=== PATIENT | female | born 1945 | race Caucasian/White ===

== ENCOUNTER → 2016-03-19 | Outpatient (CLI) | payer OTHER ==
[~2016-03-19] MED LIST: ALBUAER19 INH; AMLO-110 PO; ASPI81TA28 PO; BISO10TA4 PO; BRIM0.15 OPB; CHOL1TAB42 PO; DOCU100C31 PO; FLUT115A INH; HYDR-4717 PO; ISOS60TA25 PO; LPT/40 PO; NTRGSL/4 UT; OMEP40CA PO; ONDA8TAB7 PO; VITAMIN C PO
[2016-03-19 12:11] LABS: HEMATOCRIT 33.7 % (37-47)
== END | disposition home or self-care (01) ==
LOC: C.LAB1850 11:22
PROVIDERS: ATTEND Internal Medicine Nephrology
DX: N18.4 Chronic kidney disease, stage 4 (severe) (principal); D64.9 Anemia, unspecified

== ENCOUNTER → 2016-06-16 | Outpatient (CLI) | payer OTHER ==
[2016-06-16 12:35] LABS: HEMATOCRIT 36.2 % (37-47); MEAN CORPUSCULAR HEMOGLOBIN 25.8 pg (25-34); MEAN CORPUSCULAR HGB CONC 30.7 g/dl (32-36); MEAN PLATELET VOLUME 10.3 fL (7.4-10.4); PLATELET COUNT 221 K/uL (130-400); RED BLOOD COUNT 4.31 M/uL (4.2-5.4); WHITE BLOOD COUNT 6.68 K/uL (4.8-10.8)
[2016-06-16 12:48] LABS: URINE APPEARANCE CLEAR (CLEAR); URINE BILIRUBIN NEG (NEG); URINE COLOR YELLOW; URINE EPITHELIAL CELL AUTO >30 /lpf (0-5); URINE NITRITE NEG (NEG); URINE SPECIFIC GRAVITY 1.018 (1.000-1.030); UROBILINOGEN NEG (NEG)
[2016-06-16 12:56] LABS: MANUAL MICROSCOPIC REQUIRED? NO; REVIEW REQ? NO
[2016-06-16 13:07] LABS: URINE PROTIEN/CREAT RATIO 4.1 (0-0.2); URINE TOTAL PROTEIN 408.9 mg/dl (0-11.9)
[2016-06-16 13:12] LABS: ALT/SGPT 17 U/L (12-78); BLOOD UREA NITROGEN 62 mg/dl (7-18); BUN/CREATININE RATIO 16.4 (10-20); CARBON DIOXIDE 27 mmol/L (21-32); CHLORIDE 108 mmol/L (98-107); GLUCOSE 104 mg/dl (70-99); POTASSIUM 4.5 mmol/L (3.5-5.1); SODIUM 142 mmol/L (136-145)
[2016-06-16 13:18] LABS: ALB/GLOB RATIO 0.9 (0.9-2); ALKALINE PHOSPHATASE 72 U/L (45-117); AST/SGOT 12 U/L (15-37); FERRITIN 910.6 ng/ml (8.0-388.0); PHOSPHORUS 4.4 mg/dl (2.5-4.9); TOTAL IRON BINDING CAPACITY 207 mcg/dl (250-450)
[2016-06-16 13:32] LABS: CALCIUM 9.4 mg/dl (8.5-10.1)
== END | disposition home or self-care (01) ==
LOC: C.LAB1850 10:40
PROVIDERS: ATTEND Internal Medicine Nephrology
DX: I10 Essential (primary) hypertension (principal); R80.9 Proteinuria, unspecified; E55.9 Vitamin D deficiency, unspecified; D64.9 Anemia, unspecified; N18.5 Chronic kidney disease, stage 5

== ENCOUNTER → 2016-06-18 | Outpatient (CLI) | payer OTHER ==
--- NOTE | 2016-06-18 12:17 | DIAGNOSTIC IMAGING REPORT ---
TWO VIEW CHEST CLINICAL HISTORY: Pulmonary edema. FINDINGS: PA and lateral chest radiographs are compared to study dated 01/11/2015. The heart is enlarged and there is atherosclerotic calcification of the thoracic aorta. The pulmonary vasculature is noncongested. There is chronic elevation of right hemidiaphragm with mild right basilar atelectasis. The lung and pleural spaces are otherwise clear. There is no pneumothorax. The skeletal structures are osteopenic. Degenerative change and scoliosis are noted in the thoracic spine. IMPRESSION: Cardiomegaly with no acute cardiopulmonary abnormality. Electronically signed by: Kwan Gonzalez M.D. 06/18/2016 12:16 PM Dictated Date/Time: 06/18/2016 12:15 PM
== END | disposition home or self-care (01) ==
LOC: C.RADBBURG 12:00
PROVIDERS: ATTEND Physician Assistant
DX: J81.1 Chronic pulmonary edema (principal); I51.7 Cardiomegaly

== ENCOUNTER → 2016-07-13 | Outpatient (CLI) | payer OTHER ==
--- NOTE | 2016-07-16 06:55 | PULMONARY FUNCTION TEST ---
Interpretation is based off ATS criteria. SPIROMETRY: Severe obstructive ventilatory disease with significant reversibility noted. DICTATION ENDS HERE.
== END | disposition home or self-care (01) ==
LOC: C.RC 10:54
PROVIDERS: ATTEND Physician Assistant
DX: J45.909 Unspecified asthma, uncomplicated (principal); J81.1 Chronic pulmonary edema

== ENCOUNTER → 2016-08-18 | Outpatient (CLI) | payer OTHER ==
[2016-08-18 13:16] LABS: HEMATOCRIT 33.1 % (37-47); MEAN CELL VOLUME 81.9 fL (80-100); MEAN CORPUSCULAR HGB CONC 30.5 g/dl (32-36); MEAN PLATELET VOLUME 10.1 fL (7.4-10.4); PLATELET COUNT 191 K/uL (130-400); RED BLOOD COUNT 4.04 M/uL (4.2-5.4); WHITE BLOOD COUNT 5.89 K/uL (4.8-10.8)
[2016-08-18 15:22] LABS: CALCIUM 9.2 mg/dl (8.5-10.1)
[2016-08-18 15:33] LABS: BLOOD UREA NITROGEN 76 mg/dl (7-18); CARBON DIOXIDE 25 mmol/L (21-32); CHLORIDE 107 mmol/L (98-107); FERRITIN 626.2 ng/ml (8.0-388.0); GLUCOSE 95 mg/dl (70-99); PHOSPHORUS 4.7 mg/dl (2.5-4.9); POTASSIUM 5.3 mmol/L (3.5-5.1); SODIUM 140 mmol/L (136-145); TOTAL IRON BINDING CAPACITY 178 mcg/dl (250-450)
== END | disposition home or self-care (01) ==
LOC: C.LAB1850 11:30
PROVIDERS: ATTEND Internal Medicine Nephrology
DX: R80.9 Proteinuria, unspecified (principal); E55.9 Vitamin D deficiency, unspecified; D64.9 Anemia, unspecified; N18.5 Chronic kidney disease, stage 5; I12.0 Hypertensive chronic kidney disease with stage 5 chronic kidney disease or end stage renal disease

== ENCOUNTER → 2016-08-31 | Outpatient (CLI) | payer OTHER ==
[2016-08-31 14:10] LABS: BLOOD UREA NITROGEN 67 mg/dl (7-18); BUN/CREATININE RATIO 15.6 (10-20); CALCIUM 9.4 mg/dl (8.5-10.1); CARBON DIOXIDE 25 mmol/L (21-32); CHLORIDE 108 mmol/L (98-107); GLUCOSE 114 mg/dl (70-99); POTASSIUM 4.3 mmol/L (3.5-5.1); SODIUM 143 mmol/L (136-145)
[2016-08-31 14:11] LABS: PHOSPHORUS 5.4 mg/dl (2.5-4.9)
[2016-08-31 14:54] LABS: HEMATOCRIT 35.7 % (37-47); MEAN CELL VOLUME 82.8 fL (80-100); MEAN CORPUSCULAR HEMOGLOBIN 23.9 pg (25-34); MEAN CORPUSCULAR HGB CONC 28.9 g/dl (32-36); MEAN PLATELET VOLUME 9.3 fL (7.4-10.4); PLATELET COUNT 213 K/uL (130-400); RED BLOOD COUNT 4.31 M/uL (4.2-5.4); WHITE BLOOD COUNT 7.43 K/uL (4.8-10.8)
== END | disposition home or self-care (01) ==
LOC: C.LAB1850 11:22
PROVIDERS: ATTEND Internal Medicine Nephrology
DX: I12.9 Hypertensive chronic kidney disease with stage 1 through stage 4 chronic kidney disease, or unspecified chronic kidney disease (principal); R80.9 Proteinuria, unspecified; E55.9 Vitamin D deficiency, unspecified; D64.9 Anemia, unspecified; N18.5 Chronic kidney disease, stage 5

== ENCOUNTER → 2016-10-14 | Outpatient (CLI) | payer OTHER ==
[2016-10-14 12:16] LABS: HEMATOCRIT 31.1 % (37-47); MEAN CELL VOLUME 79.7 fL (80-100); MEAN CORPUSCULAR HEMOGLOBIN 24.6 pg (25-34); MEAN CORPUSCULAR HGB CONC 30.9 g/dl (32-36); MEAN PLATELET VOLUME 10.4 fL (7.4-10.4); PLATELET COUNT 191 K/uL (130-400); WHITE BLOOD COUNT 7.82 K/uL (4.8-10.8)
[2016-10-14 12:42] LABS: BLOOD UREA NITROGEN 72 mg/dl (7-18); CALCIUM 9.5 mg/dl (8.5-10.1); CARBON DIOXIDE 27 mmol/L (21-32); CHLORIDE 107 mmol/L (98-107); GLUCOSE 113 mg/dl (70-99); PHOSPHORUS 4.7 mg/dl (2.5-4.9); POTASSIUM 4.5 mmol/L (3.5-5.1); SODIUM 140 mmol/L (136-145)
== END | disposition home or self-care (01) ==
LOC: C.LAB1850 10:06
PROVIDERS: ATTEND Internal Medicine Nephrology
DX: I12.0 Hypertensive chronic kidney disease with stage 5 chronic kidney disease or end stage renal disease (principal); E55.9 Vitamin D deficiency, unspecified; D64.9 Anemia, unspecified; N18.5 Chronic kidney disease, stage 5

== ENCOUNTER → 2016-11-11 | Outpatient (CLI) | payer OTHER ==
[2016-11-11 09:20] LABS: PATIENT HEIGHT 157.5 cm
[2016-11-11 10:12] LABS: HEMATOCRIT 31.8 % (37-47); MEAN CELL VOLUME 82.6 fL (80-100); MEAN CORPUSCULAR HEMOGLOBIN 24.4 pg (25-34); MEAN CORPUSCULAR HGB CONC 29.6 g/dl (32-36); MEAN PLATELET VOLUME 10.1 fL (7.4-10.4); PLATELET COUNT 215 K/uL (130-400); RED BLOOD COUNT 3.85 M/uL (4.2-5.4); WHITE BLOOD COUNT 6.58 K/uL (4.8-10.8)
[2016-11-11 10:18] LABS: MANUAL MICROSCOPIC REQUIRED? NO; REVIEW REQ? NO; URINE APPEARANCE CLEAR (CLEAR); URINE BILIRUBIN NEG (NEG); URINE COLOR YELLOW; URINE EPITHELIAL CELL AUTO 20-30 /lpf (0-5); URINE NITRITE NEG (NEG); URINE SPECIFIC GRAVITY 1.022 (1.000-1.030); UROBILINOGEN NEG (NEG)
[2016-11-11 10:33] LABS: URINE TOTAL PROTEIN 185.4 mg/dl (0-11.9)
[2016-11-11 11:05] LABS: BLOOD UREA NITROGEN 75 mg/dl (7-18); BUN/CREATININE RATIO 15.3 (10-20); CALCIUM 9.7 mg/dl (8.5-10.1); CARBON DIOXIDE 25 mmol/L (21-32); CHLORIDE 108 mmol/L (98-107); GLUCOSE 109 mg/dl (70-99); POTASSIUM 4.4 mmol/L (3.5-5.1); SODIUM 139 mmol/L (136-145)
[2016-11-11 11:47] LABS: URINE TOTAL PROTEIN CALC 3151.8 mg/24 hr (0-149.1)
== END | disposition home or self-care (01) ==
LOC: C.LAB1850 09:06
PROVIDERS: ATTEND Internal Medicine Nephrology
DX: I10 Essential (primary) hypertension (principal); R80.9 Proteinuria, unspecified; E55.9 Vitamin D deficiency, unspecified; D64.9 Anemia, unspecified; N18.5 Chronic kidney disease, stage 5

== ENCOUNTER → 2017-03-07 | Outpatient (CLI) | payer OTHER ==
[2017-03-07 14:31] LABS: HEMATOCRIT 24.7 % (37-47); HEMOGLOBIN 7.6 g/dL (12.0-16.0); MEAN CELL VOLUME 81.3 fL (80-100); MEAN CORPUSCULAR HGB CONC 30.8 g/dl (32-36); MEAN PLATELET VOLUME 10.5 fL (7.4-10.4); PLATELET COUNT 146 K/uL (130-400); RED CELL DISTRIBUTION WIDTH CV 13.8 % (11.5-14.5); RED CELL DISTRIBUTION WIDTH SD 40.7 fL (36.4-46.3); WHITE BLOOD COUNT 7.01 K/uL (4.8-10.8)
[2017-03-07 16:09] LABS: ALBUMIN 3.5 gm/dl (3.4-5.0); BLOOD UREA NITROGEN 89 mg/dl (7-18); CALCIUM 9.2 mg/dl (8.5-10.1); CARBON DIOXIDE 23 mmol/L (21-32); CREATININE 5.54 mg/dl (0.60-1.20); GLUCOSE 110 mg/dl (70-99); PHOSPHORUS 5.4 mg/dl (2.5-4.9); POTASSIUM 5.1 mmol/L (3.5-5.1); SODIUM 143 mmol/L (136-145)
== END | disposition home or self-care (01) ==
LOC: C.LAB 13:22
PROVIDERS: ATTEND Internal Medicine Nephrology
DX: I12.0 Hypertensive chronic kidney disease with stage 5 chronic kidney disease or end stage renal disease (principal); R80.9 Proteinuria, unspecified; D64.9 Anemia, unspecified; E55.9 Vitamin D deficiency, unspecified; N18.5 Chronic kidney disease, stage 5

== ENCOUNTER 2017-04-21 16:31 | Inpatient (IN) | payer OTHER ==
[~2017-04-21] VITALS: Ht 157.5 cm; Wt 70.2 kg
--- NOTE | 2017-04-21 17:29 | DIAGNOSTIC IMAGING REPORT ---
CHEST ONE VIEW PORTABLE CLINICAL HISTORY: Atypical chest pain COMPARISON STUDY: June 18, 2016 FINDINGS: The heart remains enlarged. There is mild central vascular prominence, without evidence of overt edema. There is no lobar consolidation. There are no significant pleural effusions.[ IMPRESSION: Cardiomegaly with mild central vascular prominence, but no evidence of overt edema Electronically signed by: Harley Sandoval M.D. 04/21/2017 5:28 PM Dictated Date/Time: 04/21/2017 5:27 PM
[2017-04-21] MEDS ORDERED: LPT/40 PO (17:39)
[2017-04-21] MEDS ORDERED: LIDO4CRE10 TOP (17:39)
[2017-04-21] MEDS ORDERED: BETA10TA2 PO (17:39)
[2017-04-21] MEDS ORDERED: HYDR-4717 PO (17:39)
[2017-04-21] MEDS ORDERED: CHOL1TAB42 PO (17:39)
[2017-04-21] MEDS ORDERED: IMDSR60 PO (17:39)
[2017-04-21] MEDS ORDERED: ZNT150 PO (17:39)
[2017-04-21] MEDS ORDERED: AMLO-114 PO (17:39)
[2017-04-21 17:43] LABS: BASO % 0.4 %; BASO ABS # 0.03 K/uL (0-0.2); EOS ABS # 0.29 K/uL (0-0.5); HEMATOCRIT 42.5 % (37-47); HEMOGLOBIN 13.1 g/dL (12.0-16.0); IG# 0.01 K/uL (0.00-0.02); LYMPH % 15.3 %; LYMPH ABS # 1.12 K/uL (1.2-3.4); MEAN CELL VOLUME 83.5 fL (80-100); MEAN CORPUSCULAR HEMOGLOBIN 25.7 pg (25-34); MEAN CORPUSCULAR HGB CONC 30.8 g/dl (32-36); MEAN PLATELET VOLUME 10.5 fL (7.4-10.4); MONO % 4.9 %; MONO ABS # 0.36 K/uL (0.11-0.59); NEUT % 75.3 %; NEUT ABS # 5.53 K/uL (1.4-6.5); PLATELET COUNT 122 K/uL (130-400); RED CELL DISTRIBUTION WIDTH CV 14.8 % (11.5-14.5); RED CELL DISTRIBUTION WIDTH SD 44.7 fL (36.4-46.3); WHITE BLOOD COUNT 7.34 K/uL (4.8-10.8)
[2017-04-21 19:52] LABS: CALCIUM 8.8 mg/dl (8.5-10.1); CKMB 0.8 ng/ml (0.5-3.6); CREATININE 4.7 mg/dl (0.60-1.20); POTASSIUM 4.7 mmol/L (3.5-5.1)
[2017-04-21] MEDS ORDERED: SODIUM CHLORIDE 0.9% 500ML 500 ML IV STA (19:53)
[2017-04-21] MEDS ORDERED: INSULIN ASPART 100 UNITS/ML 3 ML PEN SC ONE (21:43)
[2017-04-21] MEDS ORDERED: ALBUT/IPRATROP 3MG/0.5MG NEB 3 ML VIAL INH STA (21:43)
[2017-04-21] MEDS ORDERED: ALBUT/IPRATROP 3MG/0.5MG NEB 3 ML VIAL INH PRN (21:45)
[2017-04-21] MEDS ORDERED: GLUCAGON FOR INJ 1 MG VIAL SQ PRN (21:45)
[2017-04-21] MEDS ORDERED: DEXTROSE 50% 50 ML SYR IV PRN (21:45)
[2017-04-21] MEDS ORDERED: TRAMADOL HCL 50 MG TAB PO PRN (21:45)
[2017-04-21] MEDS ORDERED: LORAZEPAM 0.5 MG TAB PO PRN (21:45)
[2017-04-21] MEDS ORDERED: ACETAMINOPHEN 325 MG TAB PO PRN (21:45)
[2017-04-21] MEDS ORDERED: PROCHLORPERAZINE INJ 5 MG in SYRINGE 4 ML IV PRN (21:45)
[2017-04-21] MEDS ORDERED: NITROGLYCERIN 0.4 MG SL PER TAB CHARGE SL PRN (21:45)
[2017-04-21] MEDS ORDERED: HYDROmorphone INJ 0.5 MG/0.5 ML SYR IV PRN (21:45)
[2017-04-21] MEDS ORDERED: GLUCOSE 40% GEL 15 GM TUBE PO PRN (21:45)
[2017-04-21] MEDS ORDERED: GLUCOSE 10 TABS/TUBE PO PRN (21:45)
[2017-04-21 21:50] LABS: PTT PATIENT 26.2 SECONDS (21.0-31.0)
[2017-04-21] MEDS ORDERED: IV FLUIDS COMPLETED PRN (22:15)
[2017-04-21] MEDS ORDERED: HydrALAZINE 10 MG TAB PO ONE (23:30)
[2017-04-21] MEDS ORDERED: RANITIDINE HCL 150 MG TAB PO ONE (23:30)
[2017-04-21 23:53] VITALS: BP 137/69; PULSE 69; TEMP 36.7; O2SAT 96; Ht 157.5 cm; Wt 70.2 kg
--- NOTE | 2017-04-22 00:18 | EMERGENCY ROOM VISIT NOTE ---
History Report prepared by Nichole: Arlette Hinkle Under the Supervision of: Dr. Fernando Wilson D.O. First contact with patient: 16:52 Chief Complaint: CHEST PAIN Stated Complaint: CHEST PAIN Nursing Triage Summary: PT STATES HEAVINESS IN MID CHEST INTERMITTENT 30 MINUTES INTO DIALYSIS, PT STATES DIFFICULTY TAKING A DEEP BREATH, WEARS O2 AT NIGHT. PT 88% RA AT THIS TIME, PLACED ON 3LNC, INCREASED TO 95%. History of Present Illness The patient is a 71 year old female who presents to the Emergency Room with complaints of intermittent chest heaviness starting earlier today. The patient was 30 minutes into dialysis when she started having this heaviness. Her dialysis was stopped and she was brought to the ED by EMS. She was given aspirin and nitro in route which improved the pain. She reports SOB, nausea, and vomiting. She denies any cough, rhinorrhea, or abdominal pain. She notes that her sister last night and she was unable to sleep. She is not on any blood thinners. She denies any history of heart disease, but states that she takes nitro for chest pain. She denies any history of blood clots. She is not on oxygen during the day. Source of History: patient Onset: earlier today Position: chest Quality: other (heaviness) Timing: intermittent Modifying Factors (Relieving): other (nitro) Associated Symptoms: + SOB, + nausea, + vomiting, No cough, No abdominal pain Review of Systems See HPI for pertinent positives & negatives. A total of 10 systems reviewed and were otherwise negative. Past Medical & Surgical Medical Problems: (1) Anemia (2) Asthma, moderate persistent (3) Chest pain (4) Chronic anemia (5) CKD (chronic kidney disease), stage IV (6) Diabetes mellitus (7) GERD (gastroesophageal reflux disease) (8) Gout (9) Hypertensive urgency (10) Secondary hyperparathyroidism of renal origin (11) Unstable angina (12) Vitamin D deficiency Surgical Problems: (1) H/O partial thyroidectomy (2) H/O: hysterectomy (3) History of appendectomy (4) History of back surgery Family History No pertinent family history Social History Smoking Status: Never Smoker Alcohol Use: none Drug Use: none Housing Status: lives with family Occupation Status: retired Current/Historical Medications Scheduled Amlodipine (Norvasc), 10 MG PO DAILY Atorvastatin (Lipitor), 40 MG PO DAILY Betaxolol Hcl (Betaxolol Hcl), 10 MG PO DAILY Cholecalciferol (Vitamin D), 5,000 UNITS PO DAILY Hydralazine Hcl (Apresoline), 50 MG PO QID Isosorbide Mononitrate (Isosorbide Mononitrate ER), 90 MG PO QAM Lidocaine (Anorectal) (Lidocaine), 1 APPLN TOP MWF Ranitidine HCl (Ranitidine HCl), 150 MG PO BID Allergies Coded Allergies: No Known Allergies (Verified , 04/21/17) Physical Exam Vital Signs Date Time Temp Pulse Resp B/P (MAP) Pulse Ox O2 Delivery O2 Flow Rate FiO2 04/21/17 21:05 62 16 97 04/21/17 21:02 154/70 04/21/17 20:35 63 18 154/73 89 04/21/17 20:28 60 16 120/70 96 Room Air 3.0 04/21/17 20:05 59 16 96 04/21/17 19:35 59 18 96 04/21/17 19:05 58 16 95 04/21/17 18:35 60 18 96 04/21/17 18:30 58 19 122/76 96 04/21/17 18:00 58 20 96 04/21/17 17:30 60 23 96 04/21/17 17:26 59 04/21/17 16:43 88 Room Air 04/21/17 16:43 95 Nasal Cannula 3.0 04/21/17 16:43 36.8 67 18 149/71 88 Room Air Physical Exam GENERAL: Sitting up in bed, chronically ill appearing, no acute distress, talking in full sentences EYE EXAM: normal conjunctiva. OROPHARYNX: no exudate, no erythema, lips, buccal mucosa, and tongue normal and mucous membranes are moist NECK: supple, no nuchal rigidity, no adenopathy, non-tender LUNGS: Breath sounds distant at the bases. HEART: no murmurs, S1 normal and S2 normal ABDOMEN: abdomen soft, non-tender, normo-active bowel sounds, no masses, no rebound or guarding. BACK: Back is symmetrical on inspection and there is no deformity, no midline tenderness, no CVA tenderness. SKIN: no rashes and no bruising UPPER EXTREMITIES: Left upper extremity with fistula in place, positive thrill/ bruit. LOWER EXTREMITIES: Calves equal bilaterally. NEURO EXAM: Normal sensorium, cranial nerves II-XII grossly intact, normal speech, no gross weakness of arms, no gross weakness of legs. Medical Decision & Procedures ER Provider Diagnostic Interpretation: Xray results as stated below per my and the radiologist's interpretation: CHEST ONE VIEW PORTABLE CLINICAL HISTORY: Atypical chest pain COMPARISON STUDY: June 18, 2016 FINDINGS: The heart remains enlarged. There is mild central vascular prominence, without evidence of overt edema. There is no lobar consolidation. There are no significant pleural effusions.[ IMPRESSION: Cardiomegaly with mild central vascular prominence, but no evidence of overt edema Electronically signed by: Harley Sandoval M.D. 04/21/2017 5:28 PM Dictated Date/Time: 04/21/2017 5:27 PM Laboratory Results 04/21/17 17:17 Red Blood Count 5.09, Mean Corpuscular Volume 83.5, Mean Corpuscular Hemoglobin 25.7, Mean Corpuscular Hemoglobin Concent 30.8, Mean Platelet Volume 10.5, Neutrophils (%) (Auto) 75.3, Lymphocytes (%) (Auto) 15.3, Monocytes (%) (Auto) 4.9, Eosinophils (%) (Auto) 4.0, Basophils (%) (Auto) 0.4, Neutrophils # (Auto) 5.53, Lymphocytes # (Auto) 1.12, Monocytes # (Auto) 0.36, Eosinophils # (Auto) 0.29, Basophils # (Auto) 0.03 04/21/17 19:02 Test 04/21/17 17:17 04/21/17 19:02 White Blood Count 7.34 K/uL (4.8-10.8) Red Blood Count 5.09 M/uL (4.2-5.4) Hemoglobin 13.1 g/dL (12.0-16.0) Hematocrit 42.5 % (37-47) Mean Corpuscular Volume 83.5 fL (80-100) Mean Corpuscular Hemoglobin 25.7 pg (25-34) Mean Corpuscular Hemoglobin Concent 30.8 g/dl (32-36) Platelet Count 122 K/uL (130-400) Mean Platelet Volume 10.5 fL (7.4-10.4) Neutrophils (%) (Auto) 75.3 % Lymphocytes (%) (Auto) 15.3 % Monocytes (%) (Auto) 4.9 % Eosinophils (%) (Auto) 4.0 % Basophils (%) (Auto) 0.4 % Neutrophils # (Auto) 5.53 K/uL (1.4-6.5) Lymphocytes # (Auto) 1.12 K/uL (1.2-3.4) Monocytes # (Auto) 0.36 K/uL (0.11-0.59) Eosinophils # (Auto) 0.29 K/uL (0-0.5) Basophils # (Auto) 0.03 K/uL (0-0.2) RDW Standard Deviation 44.7 fL (36.4-46.3) RDW Coefficient of Variation 14.8 % (11.5-14.5) Immature Granulocyte % (Auto) 0.1 % Immature Granulocyte # (Auto) 0.01 K/uL (0.00-0.02) Anion Gap 7.0 mmol/L (3-11) Est Creatinine Clear Calc Drug Dose 10.2 ml/min Estimated GFR () 10.1 Estimated GFR (Non- 8.7 BUN/Creatinine Ratio 8.1 (10-20) Calcium Level 8.8 mg/dl (8.5-10.1) Total Creatine Kinase 46 U/L (26-192) Creatine Kinase MB 0.8 ng/ml (0.5-3.6) Creatine Kinase MB Ratio 1.7 (0-3.0) Laboratory results per my review. Medications Administered Medications (Trade) Dose Ordered Sig/Joana Route Start Time Stop Time Status Last Admin Dose Admin Sodium Chloride 500 ml @ 999 mls/hr Q31M STAT IV 04/21/17 19:53 04/21/17 20:23 DC 04/21/17 19:53 999 MLS/HR ECG Per My Interpretation Indication: chest pain Rate (beats per minute): 61 Rhythm: sinus rhythm Findings: nonspecific-ST abn (Inferior, Lateral), left axis deviation Comparison ECG Date: 13-Jan-2015 Change: no significant change ED Course ED COURSE: Vital signs were reviewed and showed hypertension. The patients medical record was reviewed The above diagnostic studies were performed and reviewed. ED treatments and interventions as stated above. 1655: The patient was evaluated in room C2B. A complete history and physical examination was performed. 1952: NSS 500 ml @ 999 mls/hr IV. 1943: Upon reevaluation, the patient is stable. I discussed my findings with the patient and she understands and agrees with the treatment plan. Based on the patients age, coexisting illnesses, exam and lab findings the decision to treat as an inpatient was made. The patient remained stable while under my care. The patient will be evaluated for further management. 2015: I reviewed the patient's case with [facility]. He will evaluate the patient for further management. Medical Decision Differential diagnoses includes but is not limited to acute coronary syndrome, myocardial infarction, pericarditis, pulmonary embolus, aortic dissection, pneumonia, pneumothorax, musculoskeletal, shingles, esophageal. Patient is a 71-year-old female who is receiving dialysis this started to have chest pain associated with shortness of breath. Her blood pressure did drop slightly when this occurred. She was given a bolus normal saline. Dialysis was stopped. Chest pain continued. Her pain was relieved with nitroglycerin and aspirin. She receives dialysis Wednesday. Normally does not wear oxygen. Upon presentation to the ER she is slightly hypoxic. Completely asymptomatic on evaluation. CBC was unremarkable. BMP with a creatinine of 4.7. Troponin was slightly elevated off of baseline of 0.11. Chest x-ray was fairly unremarkable. EKG was nondiagnostic. Patient was updated bedside. Patient was admitted to internal medicine for chest pain associated with an elevated troponin which could secondary to her being a dialysis patient versus true ischemia. I did not start her on a heparin drip as she was completely asymptomatic and her troponin was only slightly elevated off of her baseline 0.08. Medication Reconcilliation Current Medication List: was personally reviewed by me Blood Pressure Screening Patient's blood pressure: Elevated blood pressure Blood pressure disposition: Referred to PCP Consults Time Called: 2011 Consulting Physician: [facility] Returned Call: 2015 I reviewed the patient's case with him. He will evaluate the patient for further management. Impression Primary Impression: Precordial chest pain Additional Impression: Elevated troponin Scribe Attestation The scribe's documentation has been prepared under my direction and personally reviewed by me in its entirety. I confirm that the note above accurately reflects all work, treatment, procedures, and medical decision making performed by me. Departure Information Dispostion Being Evaluated By Hospitalist Referrals Alberto Yuen III, M.D. (PCP) Patient Instructions My [facility] Problem Qualifiers
[2017-04-22] MEDS ORDERED: ASPIRIN 81 MG ECTAB PO ONE (00:20)
[2017-04-22] MEDS ORDERED: ATORVASTATIN 40 MG TAB PO ONE (00:20)
[2017-04-22 04:00] VITALS: BP 119/52; PULSE 60; TEMP 36.8; O2SAT 98
[2017-04-22 04:50] LABS: BASO % 0.9 %; BASO ABS # 0.05 K/uL (0-0.2); EOS ABS # 0.35 K/uL (0-0.5); HEMATOCRIT 39.8 % (37-47); HEMOGLOBIN 12.1 g/dL (12.0-16.0); IG# 0.01 K/uL (0.00-0.02); LYMPH % 28.9 %; LYMPH ABS # 1.69 K/uL (1.2-3.4); MEAN CELL VOLUME 84.9 fL (80-100); MEAN CORPUSCULAR HEMOGLOBIN 25.8 pg (25-34); MEAN CORPUSCULAR HGB CONC 30.4 g/dl (32-36); MEAN PLATELET VOLUME 10.2 fL (7.4-10.4); MONO % 7.2 %; MONO ABS # 0.42 K/uL (0.11-0.59); NEUT % 56.8 %; NEUT ABS # 3.32 K/uL (1.4-6.5); PLATELET COUNT 135 K/uL (130-400); RED CELL DISTRIBUTION WIDTH CV 14.5 % (11.5-14.5); RED CELL DISTRIBUTION WIDTH SD 44.3 fL (36.4-46.3); WHITE BLOOD COUNT 5.84 K/uL (4.8-10.8)
[2017-04-22 05:26] LABS: CALCIUM 8.4 mg/dl (8.5-10.1); CREATININE 5.39 mg/dl (0.60-1.20); POTASSIUM 4.7 mmol/L (3.5-5.1)
--- NOTE | 2017-04-22 05:31 | HISTORY & PHYSICAL EXAMINATION ---
DATE OF ADMISSION: 04/21/2017 PRIMARY CARE DOCTOR: Dr. Yuen. CHIEF COMPLAINT: Chest pain. History obtained from patient's daughter and records. HISTORY OF PRESENT ILLNESS: Medical history significant for hypertension, diet-controlled DM, end-stage renal disease on HD. LAUREN on CPAP Recent confinement at [facility] last December 2012 for chest pain. Patient also had hypertensive urgency at that time. Stress test was normal. Recent confinement for chest pain during a vacation at [facility] last year at a local hospital. Patient observed overnight at the hospital. Outpatient stress test June 2016 she negative for inducible ischemia. This afternoon, the patient was having dialysis. Blood pressure was noted to be low as per patient when she had achy pain across her chest with some shortness of breath. Nonpleuritic. Dry cough symptoms. Patient given IV fluids. Relief of chest pain with aspirin and nitroglycerin given in route to the hospital. MEDICAL HISTORY: As above. Hemodialysis Wednesday. SURGERIES: Appendectomy, hysterectomy, thyroidectomy, back surgery, vascular procedures, cataract surgery HOME MEDICATIONS: Lipitor, Norvasc, betaxolol vitamin D3, hydralazine, isosorbide mononitrate, lidocaine, Zantac and aspirin. ALLERGIES: No known drug allergies. FAMILY HISTORY: Heart disease, hypertension PERSONAL AND SOCIAL HISTORY: Nonsmoker, no chronic intake of alcohol beverages , homemaker in her younger years. REVIEW OF SYSTEMS: As per HPI. All 10 systems reviewed, all other ROS negative. PHYSICAL EXAMINATION: VITAL SIGNS: Blood pressure was noted to be 154/60, pulse 60, RR 18; sats 89% on room air, later 96% on 3 liters. GENERAL: Noted to be anxious, no respiratory distress. SKIN: Normal color, warm. HEENT: Regal palpebral conjunctivae. No ptosis. Dry mucosa. Nasal cannula in place NECK: Short, supple. CHEST: Decreased breath sounds. No tenderness. HEART: RRR, systolic murmur. ABDOMEN: Soft, some distension. EXTREMITIES: Minimal LE edema, no tenderness. No gross deformity. NEUROLOGIC: Coherent. No gross focality. LABORATORY DATA: Hemoglobin was noted to be 13.1, hematocrit 38.5, ____ platelets 122 Sodium 140 potassium 4.7, chloride 98, CO2 31, BUN 39, creatinine 4.7, glucose 82. Troponin 0.112. IMAGING DATA: Chest x-ray showed cardiomegaly, mild central vascular prominence. No overt edema. EKG as per my interpretation - rate 60, normal sinus rhythm, LAD, LAFB, left atrial enlargement, some diffuse T-wave flattening/inversion. ASSESSMENT AND PLAN: 1. Chest pain relieved by nitroglycerin possible acute coronary syndrome. 2. HTN Transient hypotensive episode during dialysis. Patient BP actually on the higher side 3. Hypoxemic resp failure Mild pulmonary congestion on CXR Possibly from IV fluid given hypotensive episode at dialysis center ESRD on HD. 4. DM2, diet controlled, well controlled as of recent A1c of 4.6 last December 2016. 5. Thrombocytopenia, rule out heparin-induced thrombocytopenia. PLAN: Observation PCU. Trend cardiac markers. Continue aspirin for CAD prevention until ACS ruled out. Cardio consult. RE chest pain. (Patient known to [facility].) Supplemental O2, baseline ABG, nebs prn Nephrology consult RE dialysis management (Patient known to Dr. Schrader.) Check HIT screen. ISS BG goal 140-180 DVT prophylaxis SCDs. RE thrombocytopenia Full code. Patient's daughter requesting for updates from providers. Dr. Jenny Ward at [phone]. MTDD
[2017-04-22] MEDS: INSULIN ASPART 100 UNITS/ML 3 ML PEN SC SCH ×5 (05:44→20:22)
[2017-04-22 08:00] VITALS: O2SAT 98
[2017-04-22] MEDS ORDERED: ASPIRIN 81 MG ECTAB PO SCH (09:00)
[2017-04-22] MEDS ORDERED: ATORVASTATIN 40 MG TAB PO SCH (09:00)
[2017-04-22] MEDS ORDERED: METOPROLOL TARTRATE 1 MG/ML VIAL ONE ×2 (10:09→10:10)
[2017-04-22] MEDS ORDERED: DOBUTamine HCL 12.5 MG/ML 20 ML VIAL ONE (10:09)
[2017-04-22] MEDS ORDERED: ATROPINE SULFATE 0.1 MG/ML 5ML SYR ONE ×2 (10:10)
[2017-04-22 11:05] VITALS: BP 152/73; PULSE 60; TEMP 36.8; O2SAT 98
[2017-04-22] MEDS: AMLODIPINE BESYLATE 5 MG TAB PO SCH (11:28)
[2017-04-22] MEDS: RANITIDINE HCL 150 MG TAB PO SCH ×2 (11:29→21:23)
[2017-04-22] MEDS: ISOSORBIDE MONONITRATE 30 MG TABCR PO SCH (11:29)
[2017-04-22] MEDS: CHOLECALCIFEROL 1000 INTER.UNIT TAB PO SCH (11:30)
--- NOTE | 2017-04-22 13:21 | DOBUTAMINE ECHO ---
*NOTICE TO RECEIVING LIBERTARIAN AGENCY This information is strictly Confidential and protected under [place] law. [place] law prohibits you from making any further disclosure of this information unless further disclosure is expressly permitted by the written consent of the person to whom it pertains or is authorized by law. A general authorization for the release of medical or other information is not sufficient for this purpose. Hospital accepts no responsibility if the information is made available to any other person, INCLUDING THE PATIENT. Interpretation Summary * Name: ANYA LISA Study Date: 04/22/2017 09:19 AM BP: 134/66 mmHg * Patient Location: C.EDINP\S\EDINP 1\S\4 HR: 55 * : 1945 (M/d/y) Gender: Female Height: 62 in * Age: 71 yrs Ethnicity: CA Weight: 157 lb * Ordering Physician: Danis Pollard * Referring Physician: No Doctor, Assigned * Performed By: Anita Jolley RDCS * * Reason For Study: CHEST PAIN * BSA: 1.7 m2 * -- Conclusions -- * Ischemic dobutamine stress echocardiogram with inducible inferior/inferolateral wall hypokinesis with dobutamine infusion. * No arrhythmias. * Normal HR and BP response to dobutamine infusion. * At rest, normal LV chamber size with mild concentric LVH. * Normal LV systolic function without regional wall motion abnormality, EF 55-60%. * Grade II diastolic dysfunction. * Aortic valve sclerosis mild, without significant aortic valvular stenosis. Mild aortic regurgitation. * Trace mitral regurgitation. * Trace tricuspid regurgitation. * Moderate atherosclerotic plaque(s) in the ascending aorta. Procedure Details * DOBUTAMINE ECHO, CPT#90369 * A contrast injection of Definity was performed to improve assessment of LV function. * Contrast was injected into an intravenous site in the right arm. * One vial of Definity ultrasound contrast was diluted in normal saline to a total volume of 10 ml. A total of '3' ml of solution was administered during imaging. * Lot # [id number] of Definity utilized for procedure. * Expiration date 1 APR 12. * The attending nurse who injected the contrast agent was CESARIO ALLEN. Left Ventricle * The left ventricle is normal in size. * There is mild concentric left ventricular hypertrophy. * Ejection Fraction = 60-65%. * The left ventricular wall motion is normal at rest. Mitral Valve * The mitral valve leaflets appear thickened, but open well. * There is no mitral valve stenosis. * There is trace mitral regurgitation. Tricuspid Valve * The tricuspid valve anatomy is normal. * There is no tricuspid stenosis. * There is trace tricuspid regurgitation. Aortic Valve * The aortic valve is trileaflet. * Aortic valve sclerosis mild, without significant aortic valvular stenosis. * Mild aortic regurgitation. Pulmonic Valve * The pulmonary valve is not well seen, but the Doppler examination is normal without significant regurgitation or stenosis. Great Vessels * The aortic root and proximal ascending aorta are normal sized. * Moderate atherosclerotic plaque(s) in the ascending aorta. Pericardium * There is no pericardial effusion. Stress Parameters * Normal baseline electrocardiogram. * There was no new ST segment depression. * No arrhythmia were noted with stress. * The stress portion of this study was personally supervised by the undersigned interpreting physician. * Rest heart rate was '55' BPM. * Rest blood pressure was '134/66' * Maximum heart rate achieved was 137 bpm. * Maximum heart rate was 91 % of maximum age-predicted heart rate. * Maximum blood pressure was '169/64' * Maximum Dobutamine infusion rate was '40' mcg/kg/min. * A total of .5 mg of intravenous Atropine was used to supplement Dobutamine for heart rate response. * Dobutamine infusion was terminated due to achieving target heart rate * A total of 5 mg of IV Metoprolol was administered to reverse Dobutamine-induced tachycardia. Left Ventricular Diastolic Function * Diastolic dysfunction, Grade II (pseudonormalization pattern). MMode 2D Measurements and Calculations IVSd 1.3 cm IVSs 2.1 cm LVIDd 5.4 cm LVIDs 3.4 cm LVPWd 1.1 cm LVPWs 1.6 cm IVS/LVPW 1.1 FS 36.9 % EDV(Teich) 143.4 ml ESV(Teich) 48.5 ml EF(Teich) 66.2 % EDV(cubed) 160.4 ml ESV(cubed) 40.4 ml EF(cubed) 74.8 % % IVS thick 60.6 % % LVPW thick 40.4 % LV mass(C)d 270.2 grams LV mass(C)dI 156.6 grams/m\S\2 LV mass(C)s 263.1 grams LV mass(C)sI 152.5 grams/m\S\2 SV(Teich) 94.9 ml SI(Teich) 55.0 ml/m\S\2 SV(cubed) 120.0 ml SI(cubed) 69.6 ml/m\S\2 Ao root diam 3.3 cm Ao root area 8.6 cm\S\2 LA dimension 5.1 cm LA/Ao 1.5 LVAd ap4 34.7 cm\S\2 LVLd ap4 9.3 cm EDV(MOD-sp4) 104.3 ml EDV(sp4-el) 109.2 ml LVAs ap4 18.0 cm\S\2 LVLs ap4 7.2 cm ESV(MOD-sp4) 39.7 ml ESV(sp4-el) 38.3 ml EF(MOD-sp4) 61.9 % EF(sp4-el) 65.0 % LVAd ap2 30.6 cm\S\2 LVLd ap2 8.8 cm EDV(MOD-sp2) 87.9 ml EDV(sp2-el) 90.6 ml LVAs ap2 16.6 cm\S\2 LVLs ap2 7.4 cm ESV(MOD-sp2) 30.9 ml ESV(sp2-el) 31.5 ml EF(MOD-sp2) 64.9 % EF(sp2-el) 65.2 % LVLd %diff -6.24 % EDV(MOD-bp) 99.5 ml LVLs %diff 3.4 % ESV(MOD-bp) 35.1 ml EF(MOD-bp) 64.8 % SV(MOD-sp4) 64.6 ml SI(MOD-sp4) 37.5 ml/m\S\2 SV(MOD-sp2) 57.0 ml SI(MOD-sp2) 33.1 ml/m\S\2 SV(MOD-bp) 64.4 ml SI(MOD-bp) 37.3 ml/m\S\2 SV(sp4-el) 71.0 ml SI(sp4-el) 41.1 ml/m\S\2 SV(sp2-el) 59.1 ml SI(sp2-el) 34.3 ml/m\S\2 Doppler Measurements and Calculations MV E max allison 128.3 cm/sec MV A max allison 80.3 cm/sec MV E/A 1.6 MV dec time 0.20 sec Ao V2 max 246.5 cm/sec Ao max PG 24.3 mmHg Ao max PG (full) 15.4 mmHg AI max allison 431.8 cm/sec AI max PG 74.6 mmHg AI dec slope 144.7 cm/sec\S\2 AI P1/2t 873.8 msec LV V1 max PG 8.9 mmHg LV V1 max 149.1 cm/sec MR max allison 427.1 cm/sec MR max PG 73.0 mmHg TR max allison 237.0 cm/sec
--- NOTE | 2017-04-22 15:52 | CARDIOLOGY CONSULTATION ---
DATE OF CONSULTATION: 04/22/2017 INPATIENT CONSULTATION CONSULTATION REQUESTED BY: Dr. Aceves. REASON FOR CONSULTATION: Chest pain and hypotension on dialysis. HISTORY OF PRESENT ILLNESS: Mrs. Ward is a very pleasant 71-year-old woman who was sent over from her dialysis treatment today after having an episode of hypotension and chest pain. The patient states that she went to dialysis in her normal state of health on the , but then after being on dialysis for some time, her blood pressure reportedly dropped and she developed chest pain. She describes the pain as a pressure sensation in the center of her chest that was associated with a hot flash sensation along with nausea, shortness of breath and palpitations. Dialysis was obviously stopped short at that time, and she was transferred to [facility]. She states that the pain seemed to subside before she came to the Emergency Department, and she has not had any further recurrences since admission. Her only complaints at this time are that of being a little upset given the passing of her sister last evening. She states her only previous episode of chest pain that was similar was for an episode of hypertensive urgency in the past. Of note, the patient does follow with Dr. Erickson of our cardiology practice and she had a mildly abnormal stress test in 2014; however, the decision was made to treat her medically at that time given her tenuous renal function, in an attempt to avoid catheterization and dye load. She did have a recent stress test in June of 2016 and that was nonischemic at that time. PAST SURGICAL HISTORY: 1. Fistula placement. 2. Partial thyroidectomy. 3. Colonoscopy. 4. Hysterectomy. 5. Appendectomy. 6. Parotid gland excision 7. Back surgery. MEDICAL ILLNESSES: 1. End-stage renal disease on hemodialysis Wednesday, Wednesday, and Wednesday. 2. Diabetes. 3. Asthma. 4. Hypertension. 5. Anemia of chronic disease. 6. Obstructive sleep apnea with nocturnal hypoxemia. FAMILY HISTORY: Noncontributory. SOCIAL HISTORY: Denies any alcohol, tobacco or recreational drug use. She is accompanied at the hospital today with her daughter who is a family physician. REVIEW OF SYSTEMS: As per HPI, all other review of systems reviewed and negative at this time. ALLERGIES: No known drug allergies. MEDICATIONS AN OUTPATIENT: 1. Aspirin 81 mg daily. 2. Atorvastatin 40 mg daily. 3. Amlodipine 10 mg daily. 4. Imdur 90 mg daily. 5. Oxygen with CPAP while sleeping. 6. Betaxolol 10 mg daily, which is a beta michael. PHYSICAL EXAMINATION: VITALS: Temperature 36.8, pulse 60, respiratory rate 12, blood pressure 153/73. GENERAL: Awake, alert, oriented x3 in no acute distress. HEENT: Normocephalic, atraumatic. Pupils equal, round react to light and accommodation. Extraocular muscles intact. Anicteric sclerae. Moist mucous membranes. NECK: No JVD, no bruit. CARDIOVASCULAR: Regular. Positive S4. Normal S1 and S2. No S3. A 3/6 mid to late systolic ejection murmur greatest at the right sternal border second intercostal space with radiation to bilateral carotids. No rubs. PULMONARY: Clear to auscultation bilaterally. No rales, rhonchi, or wheezing. ABDOMEN: Bowel sounds x4, soft. No rebound, guarding, tenderness. No organomegaly. EXTREMITIES: No clubbing, cyanosis or edema. +2 pedal pulses bilaterally. SKIN: Warm and dry. TEST RESULTS: Dobutamine stress echocardiogram performed today was read as ischemic. Dobutamine stress echocardiogram with inducible inferior/inferolateral wall hypokinesis with dobutamine infusion. No arrhythmias, normal heart rate and blood pressure response at rest, normal LV chamber size with mild concentric LVH, normal LV systolic function without regional wall motion abnormality, EF 55% to 60%, grade 2 diastolic dysfunction, mild aortic valve sclerosis without stenosis, mild aortic regurgitation, trace mitral regurgitation, trace tricuspid regurgitation, moderate atherosclerotic plaque in the ascending aorta and aortic root. IMPRESSION: 1. Chest pain with ischemic dobutamine stress echocardiogram. 2. End-stage renal disease, on hemodialysis. 3. Atherosclerotic disease. 4. Hypertension. RECOMMENDATIONS: It was my pleasure to see Mrs. Ward in consultation today. The patient and her daughter were counseled given the fact that her stress test was ischemic, they do believe the most prudent course of action will be to proceed to direct visualization of her coronary anatomy with cardiac catheterization and they are both in agreement. So, at this point the patient will be made n.p.o. after midnight and we will proceed to catheterization in the a.m. This has been coordinated with Dr. Schrader and she will receive dialysis after cardiac catheterization. Otherwise, no other medication changes will be made at this time, and she will be continued on her outpatient regimen.
[2017-04-22 16:15] VITALS: BP 127/64; PULSE 54; TEMP 37.3; O2SAT 91
--- NOTE | 2017-04-22 16:45 | Nephrology Consultation ---
Nephrology Consultation Date & Providers Date of Consultation: Apr 22, 2017. Primary Care Provider: Alberto Yuen III, M.D. Referring Provider: Reason for Consultation ESRD on HD History of Present Illness Ms. Ward is a 71 year old female who is seen at the request of Dr. Hayes to provide inpatient HD. 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 She has been on IHD at [facility] since 03/11. Her medical history is significant for HTN , LAUREN requiring CPAP, hypercholesterolemia, AODM, gout, complex cyst involving the R kidney, osteoporosis, chronic low back pain and anemia. Ms. Ward presented for outpatient HD yesterday. Her blood pressure was 150 mm HG prior to HD. 30 min into her treatment her SBP dropped to 90 mm HG and she developed chest discomfort. HD was stopped and blood returned to the patient. ASA and O2 was administered. EMS was called and patient was given SL NTG and transported to [facility] for evaluation. ECG was negative for acute ischemic change. Initial troponin was mildly elevated. Nephrology consultation was requested to provide inpatient HD. 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" (MWF HD at [facility] 4 hrs F-180NR 2K 2Ca Qb 350 EDW 70.5 kg) # HTN # LAUREN - on nocturnal CPAP # Hypercholesterolemia # AODM # Gout # Complex cyst involving the R kidney # Osteoporosis # Chronic low back pain # Anemia Surgical: # AVF Allergies Coded Allergies: No Known Allergies (Verified , 04/21/17) Inpatient Medications Current Inpatient Medications Medications (Trade) Dose Ordered Sig/Joana Route Start Time Stop Time Status Last Admin Dose Admin Albuterol/ Ipratropium (Duoneb) 3 ml Q2H PRN INH 04/21/17 21:45 05/21/17 21:44 Acetaminophen (Tylenol Tab) 650 mg Q4H PRN PO 04/21/17 21:45 05/21/17 21:44 Nitroglycerin (Nitrostat Tab) 0.4 mg UD PRN SL 04/21/17 21:45 05/21/17 21:44 Insulin Aspart (novoLOG ASPART) SLIDING SCALE If C... Q6 SC 04/22/17 00:00 05/22/17 00:00 Glucose (Glucose 40% Gel) 15-30 GRAMS 15 GRAMS... UD PRN PO 04/21/17 21:45 05/21/17 21:44 Glucose (Glucose Chew Tab) 4-8 Tablets 4 Tabl... UD PRN PO 04/21/17 21:45 05/21/17 21:44 Dextrose (Dextrose 50% 50ML Syringe) 25-50ML OF 50% DW IV FOR... UD PRN IV 04/21/17 21:45 05/21/17 21:44 Glucagon (Glucagon Inj) 1 mg UD PRN SQ 04/21/17 21:45 05/21/17 21:44 Hydromorphone HCl (Dilaudid Inj) 0.5 mg Q3H PRN IV 04/21/17 21:45 05/05/17 21:44 Tramadol HCl (Ultram Tab) 25 mg Q6H PRN PO 04/21/17 21:45 05/21/17 21:44 Prochlorperazine Edisylate 5 mg/ Syringe 5 ml @ 5 mls/min Q6H PRN IV 04/21/17 21:45 05/21/17 21:44 Lorazepam (Ativan Tab) 0.25 mg HS PRN PO 04/21/17 21:45 05/21/17 21:44 04/22/17 00:46 0.25 MG Amlodipine Besylate (Norvasc Tab) 10 mg DAILY PO 04/22/17 09:00 05/22/17 08:59 04/22/17 11:28 10 MG Hydralazine HCl (Apresoline Tab) 50 mg QID PO 04/22/17 09:00 05/22/17 08:59 04/22/17 16:12 50 MG Isosorbide Mononitrate (Imdur Ext Rel Tab) 90 mg QAM PO 04/22/17 09:00 05/22/17 08:59 04/22/17 11:29 90 MG Ranitidine HCl (zANTac TAB) 150 mg BID PO 04/22/17 09:00 05/22/17 08:59 04/22/17 11:29 150 MG Miscellaneous Information (Order Awaiting Action) 1 ea QS PO 04/22/17 00:00 05/22/17 00:00 Cholecalciferol (Vitamin D Tab) 5,000 inter.unit DAILY PO 04/22/17 09:00 05/22/17 08:59 04/22/17 11:30 5,000 INTER.UNIT Miscellaneous (Iv Fluids Completed) 1 ea PRN PRN N/A 04/21/17 22:15 04/21/18 22:14 Aspirin (Ecotrin Tab) 81 mg QAM PO 04/23/17 09:00 05/22/17 08:59 Atorvastatin Calcium (Lipitor Tab) 40 mg DAILY PO 04/23/17 09:00 05/22/17 08:59 Family History No pertinent family history Negative for CKD / ESRD Social History Smoking Status: Never Smoker Drug Use: none Occupation: retired . Retired. Never a smoker. Review of Systems Constitutional: No fever Respiratory: No shortness of breath Cardiovascular: No chest pain Abdomen: No pain, No vomiting A complete review of systems was performed. Pertinent positives are noted above. All other systems are negative. Physical Exam Date Time Temp Pulse Resp B/P (MAP) Pulse Ox O2 Delivery O2 Flow Rate FiO2 04/22/17 16:15 37.3 54 16 127/64 (85) 91 Nasal Cannula 3.0 04/22/17 16:00 Nasal Cannula 3.0 04/22/17 12:00 Nasal Cannula 3.0 04/22/17 11:05 36.8 60 20 152/73 (99) 98 Nasal Cannula 3.0 04/22/17 08:00 98 Nasal Cannula 3.0 04/22/17 05:16 58 04/22/17 04:00 36.8 60 16 119/52 (74) 98 Nasal Cannula 3.0 04/22/17 04:00 98 Room Air 3.0 04/22/17 01:24 63 04/21/17 23:53 36.7 69 17 137/69 96 Nasal Cannula 3.0 04/21/17 22:01 165/73 04/21/17 21:36 68 04/21/17 21:35 68 16 95 04/21/17 21:31 146/74 04/21/17 21:05 62 16 97 04/21/17 21:02 154/70 04/21/17 20:35 63 18 154/73 89 04/21/17 20:28 60 16 120/70 96 Room Air 3.0 04/21/17 20:05 59 16 96 04/21/17 19:35 59 18 96 04/21/17 19:05 58 16 95 04/21/17 18:35 60 18 96 04/21/17 18:30 58 19 122/76 96 04/21/17 18:00 58 20 96 04/21/17 17:30 60 23 96 04/21/17 17:26 59 04/21/17 16:43 88 Room Air 04/21/17 16:43 95 Nasal Cannula 3.0 04/21/17 16:43 36.8 67 18 149/71 88 Room Air General Appearance: no apparent distress Head: normocephalic, atraumatic Eyes: PERRL, EOMI Neck: no adenopathy Respiratory/Chest: lungs clear Cardiovascular: regular rate, rhythm Abdomen/GI: normal bowel sounds, non tender, soft Extremities/Musculoskelatal: normal inspection, no pedal edema, + pertinent finding (AVF + bruit) Neurologic/Psych: alert, oriented x 3 Laboratory Results Last 24 Hours Test 04/21/17 17:09 04/21/17 17:17 04/21/17 19:02 04/21/17 21:15 Creatine Kinase MB Ratio 1.7 White Blood Count 7.34 K/uL Red Blood Count 5.09 M/uL Hemoglobin 13.1 g/dL Hematocrit 42.5 % Mean Corpuscular Volume 83.5 fL Mean Corpuscular Hemoglobin 25.7 pg Mean Corpuscular Hemoglobin Concent 30.8 g/dl Platelet Count 122 K/uL Mean Platelet Volume 10.5 fL Neutrophils (%) (Auto) 75.3 % Lymphocytes (%) (Auto) 15.3 % Monocytes (%) (Auto) 4.9 % Eosinophils (%) (Auto) 4.0 % Basophils (%) (Auto) 0.4 % Neutrophils # (Auto) 5.53 K/uL Lymphocytes # (Auto) 1.12 K/uL Monocytes # (Auto) 0.36 K/uL Eosinophils # (Auto) 0.29 K/uL Basophils # (Auto) 0.03 K/uL RDW Standard Deviation 44.7 fL RDW Coefficient of Variation 14.8 % Immature Granulocyte % (Auto) 0.1 % Immature Granulocyte # (Auto) 0.01 K/uL Sodium Level 136 mmol/L Potassium Level 4.7 mmol/L Chloride Level 98 mmol/L Carbon Dioxide Level 31 mmol/L Anion Gap 7.0 mmol/L Blood Urea Nitrogen 39 mg/dl Creatinine 4.70 mg/dl Est Creatinine Clear Calc Drug Dose 10.2 ml/min Estimated GFR () 10.1 Estimated GFR (Non- 8.7 BUN/Creatinine Ratio 8.1 Random Glucose 82 mg/dl Calcium Level 8.8 mg/dl Total Creatine Kinase 46 U/L Creatine Kinase MB 0.8 ng/ml Troponin I 0.112 ng/ml 0.122 ng/ml Activated Partial Thromboplast Time 26.2 SECONDS Partial Thromboplastin Ratio 1.0 Magnesium Level 2.6 mg/dl Heparin-PF4 Antibody Screen NEG Test 04/22/17 00:22 04/22/17 04:40 04/22/17 05:40 04/22/17 11:11 Bedside Glucose 135 mg/dl 81 mg/dl 95 mg/dl White Blood Count 5.84 K/uL Red Blood Count 4.69 M/uL Hemoglobin 12.1 g/dL Hematocrit 39.8 % Mean Corpuscular Volume 84.9 fL Mean Corpuscular Hemoglobin 25.8 pg Mean Corpuscular Hemoglobin Concent 30.4 g/dl Platelet Count 135 K/uL Mean Platelet Volume 10.2 fL Neutrophils (%) (Auto) 56.8 % Lymphocytes (%) (Auto) 28.9 % Monocytes (%) (Auto) 7.2 % Eosinophils (%) (Auto) 6.0 % Basophils (%) (Auto) 0.9 % Neutrophils # (Auto) 3.32 K/uL Lymphocytes # (Auto) 1.69 K/uL Monocytes # (Auto) 0.42 K/uL Eosinophils # (Auto) 0.35 K/uL Basophils # (Auto) 0.05 K/uL RDW Standard Deviation 44.3 fL RDW Coefficient of Variation 14.5 % Immature Granulocyte % (Auto) 0.2 % Immature Granulocyte # (Auto) 0.01 K/uL Sodium Level 138 mmol/L Potassium Level 4.7 mmol/L Chloride Level 102 mmol/L Carbon Dioxide Level 29 mmol/L Anion Gap 7.0 mmol/L Blood Urea Nitrogen 47 mg/dl Creatinine 5.39 mg/dl Est Creatinine Clear Calc Drug Dose 8.9 ml/min Estimated GFR () 8.6 Estimated GFR (Non- 7.4 BUN/Creatinine Ratio 8.9 Random Glucose 83 mg/dl Calcium Level 8.4 mg/dl Troponin I 0.097 ng/ml Test 04/22/17 16:00 Bedside Glucose 100 mg/dl Impression (1) End-stage renal disease on hemodialysis (2) Chest pain (3) Elevated troponin (4) Diabetes mellitus Recommendations END STAGE RENAL DISEASE: -- Medical records from [facility] yesterday reviewed. Patient only completed 30 min HD yesterday -- Volume status & electrolyte balance are acceptable. No acute indication for HD today -- Will schedule next HD for tomorrow -- Protect AVF CARDIAC: -- ECG and troponin levels reviewed -- Review of EMR shows inferolateral ischemia on cardiolyte study 2014 -- Case discussed this am w/ Dr. Pollard. Patient will have repeat cardiac stress test and if positive, cardiac catheterization in am -- Will coordinate dialysis w/ cardiology schedule HYPERTENSION: -- Continue Betaxolol, Isosorbide, Hydralazine and Amlodipine OTHER: -- Patient's sister yesterday. She may benefit from a short course of low dose Xanax at the time of discharge
--- NOTE | 2017-04-22 16:48 | Progress Note ---
Subjective Date of Service: Apr 22, 2017. Subjective Pt evaluation today including: conversation w/ patient, physical exam, lab review, review of studies, review of inpatient medication list Saw/examined the patient in room 215 She's doing well, currently with no chest pain, no shortness of breath supplemental O2 via nasal cannula Problem List Medical Problems: (1) Elevated troponin Status: Acute (2) Precordial chest pain Status: Acute Review of Systems Constitutional: No fever, No chills Respiratory: + shortness of breath (intermittent), No cough, No sputum, No wheezing, No dyspnea on exertion, No dyspnea at rest, No hemoptysis Cardiac: No chest pain (improved) Medications Current Inpatient Medications Medications (Trade) Dose Ordered Sig/Joana Route Start Time Stop Time Status Last Admin Dose Admin Albuterol/ Ipratropium (Duoneb) 3 ml Q2H PRN INH 04/21/17 21:45 05/21/17 21:44 Acetaminophen (Tylenol Tab) 650 mg Q4H PRN PO 04/21/17 21:45 05/21/17 21:44 Nitroglycerin (Nitrostat Tab) 0.4 mg UD PRN SL 04/21/17 21:45 05/21/17 21:44 Insulin Aspart (novoLOG ASPART) SLIDING SCALE If C... Q6 SC 04/22/17 00:00 05/22/17 00:00 Glucose (Glucose 40% Gel) 15-30 GRAMS 15 GRAMS... UD PRN PO 04/21/17 21:45 05/21/17 21:44 Glucose (Glucose Chew Tab) 4-8 Tablets 4 Tabl... UD PRN PO 04/21/17 21:45 05/21/17 21:44 Dextrose (Dextrose 50% 50ML Syringe) 25-50ML OF 50% DW IV FOR... UD PRN IV 04/21/17 21:45 05/21/17 21:44 Glucagon (Glucagon Inj) 1 mg UD PRN SQ 04/21/17 21:45 05/21/17 21:44 Hydromorphone HCl (Dilaudid Inj) 0.5 mg Q3H PRN IV 04/21/17 21:45 05/05/17 21:44 Tramadol HCl (Ultram Tab) 25 mg Q6H PRN PO 04/21/17 21:45 05/21/17 21:44 Prochlorperazine Edisylate 5 mg/ Syringe 5 ml @ 5 mls/min Q6H PRN IV 04/21/17 21:45 05/21/17 21:44 Lorazepam (Ativan Tab) 0.25 mg HS PRN PO 04/21/17 21:45 05/21/17 21:44 04/22/17 00:46 0.25 MG Amlodipine Besylate (Norvasc Tab) 10 mg DAILY PO 04/22/17 09:00 05/22/17 08:59 04/22/17 11:28 10 MG Hydralazine HCl (Apresoline Tab) 50 mg QID PO 04/22/17 09:00 05/22/17 08:59 04/22/17 16:12 50 MG Isosorbide Mononitrate (Imdur Ext Rel Tab) 90 mg QAM PO 04/22/17 09:00 05/22/17 08:59 04/22/17 11:29 90 MG Ranitidine HCl (zANTac TAB) 150 mg BID PO 04/22/17 09:00 05/22/17 08:59 04/22/17 11:29 150 MG Miscellaneous Information (Order Awaiting Action) 1 ea QS PO 04/22/17 00:00 05/22/17 00:00 Cholecalciferol (Vitamin D Tab) 5,000 inter.unit DAILY PO 04/22/17 09:00 05/22/17 08:59 04/22/17 11:30 5,000 INTER.UNIT Miscellaneous (Iv Fluids Completed) 1 ea PRN PRN N/A 04/21/17 22:15 04/21/18 22:14 Aspirin (Ecotrin Tab) 81 mg QAM PO 04/23/17 09:00 05/22/17 08:59 Atorvastatin Calcium (Lipitor Tab) 40 mg DAILY PO 04/23/17 09:00 05/22/17 08:59 Objective Vital Signs Date Time Temp Pulse Resp B/P (MAP) Pulse Ox O2 Delivery O2 Flow Rate FiO2 04/22/17 16:15 37.3 54 16 127/64 (85) 91 Nasal Cannula 3.0 04/22/17 16:00 Nasal Cannula 3.0 04/22/17 12:00 Nasal Cannula 3.0 3/1/18 11:05 36.8 60 20 152/73 (99) 98 Nasal Cannula 3.0 04/22/17 08:00 98 Nasal Cannula 3.0 04/22/17 05:16 58 04/22/17 04:00 36.8 60 16 119/52 (74) 98 Nasal Cannula 3.0 04/22/17 04:00 98 Room Air 3.0 04/22/17 01:24 63 04/21/17 23:53 36.7 69 17 137/69 96 Nasal Cannula 3.0 04/21/17 22:01 165/73 04/21/17 21:36 68 04/21/17 21:35 68 16 95 04/21/17 21:31 146/74 04/21/17 21:05 62 16 97 04/21/17 21:02 154/70 04/21/17 20:35 63 18 154/73 89 04/21/17 20:28 60 16 120/70 96 Room Air 3.0 04/21/17 20:05 59 16 96 04/21/17 19:35 59 18 96 04/21/17 19:05 58 16 95 04/21/17 18:35 60 18 96 04/21/17 18:30 58 19 122/76 96 04/21/17 18:00 58 20 96 04/21/17 17:30 60 23 96 04/21/17 17:26 59 04/21/17 16:43 88 Room Air 04/21/17 16:43 95 Nasal Cannula 3.0 04/21/17 16:43 36.8 67 18 149/71 88 Room Air Physical Exam General Appearance: no apparent distress Respiratory/Chest: lungs clear, normal breath sounds, no respiratory distress, no accessory muscle use Cardiovascular: regular rate, rhythm, no edema, no murmur Extremities: non-tender, normal inspection, no pedal edema Neurologic/Psychiatric: no motor/sensory deficits, alert, normal mood/affect Laboratory Results Last 24 Hours Test 04/21/17 17:09 04/21/17 17:17 04/21/17 19:02 04/21/17 21:15 Creatine Kinase MB Ratio 1.7 White Blood Count 7.34 K/uL Red Blood Count 5.09 M/uL Hemoglobin 13.1 g/dL Hematocrit 42.5 % Mean Corpuscular Volume 83.5 fL Mean Corpuscular Hemoglobin 25.7 pg Mean Corpuscular Hemoglobin Concent 30.8 g/dl Platelet Count 122 K/uL Mean Platelet Volume 10.5 fL Neutrophils (%) (Auto) 75.3 % Lymphocytes (%) (Auto) 15.3 % Monocytes (%) (Auto) 4.9 % Eosinophils (%) (Auto) 4.0 % Basophils (%) (Auto) 0.4 % Neutrophils # (Auto) 5.53 K/uL Lymphocytes # (Auto) 1.12 K/uL Monocytes # (Auto) 0.36 K/uL Eosinophils # (Auto) 0.29 K/uL Basophils # (Auto) 0.03 K/uL RDW Standard Deviation 44.7 fL RDW Coefficient of Variation 14.8 % Immature Granulocyte % (Auto) 0.1 % Immature Granulocyte # (Auto) 0.01 K/uL Sodium Level 136 mmol/L Potassium Level 4.7 mmol/L Chloride Level 98 mmol/L Carbon Dioxide Level 31 mmol/L Anion Gap 7.0 mmol/L Blood Urea Nitrogen 39 mg/dl Creatinine 4.70 mg/dl Est Creatinine Clear Calc Drug Dose 10.2 ml/min Estimated GFR () 10.1 Estimated GFR (Non- 8.7 BUN/Creatinine Ratio 8.1 Random Glucose 82 mg/dl Calcium Level 8.8 mg/dl Total Creatine Kinase 46 U/L Creatine Kinase MB 0.8 ng/ml Troponin I 0.112 ng/ml 0.122 ng/ml Activated Partial Thromboplast Time 26.2 SECONDS Partial Thromboplastin Ratio 1.0 Magnesium Level 2.6 mg/dl Heparin-PF4 Antibody Screen NEG Test 04/22/17 00:22 04/22/17 04:40 04/22/17 05:40 04/22/17 11:11 Bedside Glucose 135 mg/dl 81 mg/dl 95 mg/dl White Blood Count 5.84 K/uL Red Blood Count 4.69 M/uL Hemoglobin 12.1 g/dL Hematocrit 39.8 % Mean Corpuscular Volume 84.9 fL Mean Corpuscular Hemoglobin 25.8 pg Mean Corpuscular Hemoglobin Concent 30.4 g/dl Platelet Count 135 K/uL Mean Platelet Volume 10.2 fL Neutrophils (%) (Auto) 56.8 % Lymphocytes (%) (Auto) 28.9 % Monocytes (%) (Auto) 7.2 % Eosinophils (%) (Auto) 6.0 % Basophils (%) (Auto) 0.9 % Neutrophils # (Auto) 3.32 K/uL Lymphocytes # (Auto) 1.69 K/uL Monocytes # (Auto) 0.42 K/uL Eosinophils # (Auto) 0.35 K/uL Basophils # (Auto) 0.05 K/uL RDW Standard Deviation 44.3 fL RDW Coefficient of Variation 14.5 % Immature Granulocyte % (Auto) 0.2 % Immature Granulocyte # (Auto) 0.01 K/uL Sodium Level 138 mmol/L Potassium Level 4.7 mmol/L Chloride Level 102 mmol/L Carbon Dioxide Level 29 mmol/L Anion Gap 7.0 mmol/L Blood Urea Nitrogen 47 mg/dl Creatinine 5.39 mg/dl Est Creatinine Clear Calc Drug Dose 8.9 ml/min Estimated GFR () 8.6 Estimated GFR (Non- 7.4 BUN/Creatinine Ratio 8.9 Random Glucose 83 mg/dl Calcium Level 8.4 mg/dl Troponin I 0.097 ng/ml Test 04/22/17 16:00 Bedside Glucose 100 mg/dl Assessment and Plan This is a 71 year old female with a PMH of ESRD on hemodialysis on , LAUREN on CPAP, HTN, diet controlled DM2 - presents with chest pain and elevated troponin Chest Pain presented with chest pain and elevated troponin had a dobutamine stress test and is positive cardiac cath is planned for the AM cont. aspirin and statin for now continue Imdur and Hydralazine ESRD on hemodialysis to receive HD after cardiac cath tomorrow appreciate nephrology input HTN blood pressure is stable continue Norvasc diet controlled DM2 Ha1c = 4.9% DVT ppx SCDs FULL CODE
[2017-04-22 20:37] VITALS: BP 145/73; PULSE 60; TEMP 36.8; O2SAT 91
[2017-04-22] MEDS ORDERED: NON-FORMULARY PATIENT'S OWN MED PO ONE (21:33)
[2017-04-23] VITALS (30 sets, daily range): BP systolic 114–155; BP diastolic 52–71; PULSE 55–69; TEMP 36.5–37.1; O2SAT 91–100
[2017-04-23] MEDS ORDERED: LORATADINE 10 MG TAB PO ONE (01:30)
[2017-04-23] MEDS: INSULIN ASPART 100 UNITS/ML 3 ML PEN SC SCH ×4 (06:00→21:00)
--- NOTE | 2017-04-23 06:24 | Clinical Documentation Query ---
CLINICAL DOCUMENTATION QUERY 71 year old female who presents to the Emergency Room with complaints of intermittent chest heaviness. Troponin's are elevated and stress test has revealed ischemia. In your clinical opinion is this patient being managed for: ( ) Non-ST elevation (NSTEMI) myocardial infarction ( X ) Not Agree ( ) Other explanation of clinical findings (Please Explain) ( ) Unable to determine (Please Define) ( ) Need to Discuss The medical record reflects the following clinical findings, treatment, and risk factors. Clinical Indicators: As above. Chest heaviness, Troponin's 0.112, 0.122, 0.097 Treatment: ASA, O2, Imdur, Cardiology consult, dobutamine stress test, scheduled cardiac catheterizations. Risk Factors: Age, ESRD, DM, Please clarify and document your clinical opinion in the progress notes and discharge summary. Terms such as "probable", "suspected", "likely", "questionable", "possible", or "still to be ruled out" are acceptable. IF IN AGREEMENT, YOU MUST DOCUMENT ABOVE DIAGNOSTIC STATEMENT IN DAILY PROGRESS NOTES AND DISCHARGE SUMMARY. This document is not part of the patient's record. Thank You, Sachin Duran, RN [phone]
[2017-04-23 07:45] LABS: HEMATOCRIT 37.1 % (37-47); HEMOGLOBIN 11.5 g/dL (12.0-16.0); MEAN CELL VOLUME 83.7 fL (80-100); MEAN PLATELET VOLUME 10.3 fL (7.4-10.4); PLATELET COUNT 134 K/uL (130-400); RED CELL DISTRIBUTION WIDTH CV 14.4 % (11.5-14.5)
[2017-04-23 07:56] LABS: CALCIUM 8.6 mg/dl (8.5-10.1); CREATININE 6.6 mg/dl (0.60-1.20)
[2017-04-23] MEDS: ISOSORBIDE MONONITRATE 30 MG TABCR PO SCH (08:13)
[2017-04-23] MEDS: BETAXOLOL 10 MG PO SCH (08:13)
[2017-04-23] MEDS: ASPIRIN 81 MG ECTAB PO SCH (08:13)
[2017-04-23] MEDS: RANITIDINE HCL 150 MG TAB PO SCH ×2 (08:15→20:07)
[2017-04-23] MEDS: AMLODIPINE BESYLATE 5 MG TAB PO SCH (08:15)
[2017-04-23] MEDS: CHOLECALCIFEROL 1000 INTER.UNIT TAB PO SCH (08:16)
[2017-04-23] MEDS ORDERED: ATORVASTATIN 40 MG TAB PO SCH ×2 (09:00→21:00)
[2017-04-23] MEDS ORDERED: NURSING VERBAL MED ORDER ONE ×2 (09:15→16:15)
[2017-04-23] MEDS ORDERED: MIDAZOLAM HCL 1 MG/ML 2ML VIAL ONE (10:54)
[2017-04-23] MEDS ORDERED: FENTANYL CITRATE INJ 50 MCG/1 ML 2 ML VIAL ONE (10:55)
--- NOTE | 2017-04-23 11:11 | Nephrology Progress Note ---
Nephrology Progress Note Date of Service Apr 23, 2017. Chief Complaint ESRD on HD Subjective Ms. Ward was seen & examined in her hospital room this morning. Her daughter Jenny was present at bedside. Ms. Ward denies chest pain or shortness of breath overnight. She is awaiting heart catheterization at ~ 11 am today. Review of Systems Constitutional: No fever Cardiovascular: No chest pain Respiratory: No dyspnea at rest Abdomen: No pain, No nausea, No vomiting Extremities: No leg edema A complete review of systems was performed. Pertinent positives are noted above. All other systems are negative. Vital Signs Last 8 Hrs Date Time Temp Pulse Resp B/P (MAP) Pulse Ox O2 Delivery O2 Flow Rate FiO2 04/23/17 08:00 Nasal Cannula 3.0 04/23/17 07:43 36.9 65 18 134/67 (89) 96 3.0 04/23/17 04:04 37.1 61 18 138/64 (88) 92 Nasal Cannula 3.0 04/23/17 04:00 97 Nasal Cannula 2.0 Last Recorded Weight Weight (Kilograms): 71.100 Physical Exam General Appearance: no apparent distress Head: normocephalic, atraumatic Eyes: PERRL, EOMI Neck: no adenopathy Respiratory/Chest: lungs clear Cardiovascular: regular rate, rhythm Abdomen/GI: normal bowel sounds, non tender, soft Extremities/Musculoskelatal: no calf tenderness, no pedal edema Neurologic/Psych: alert, oriented x 3 Family History No pertinent family history Negative for CKD / ESRD Social History Drug Use: none Occupation: retired . Retired. Never a smoker. Laboratory Results Past 24 Hours 04/23/17 06:32 04/23/17 06:32 Test 04/22/17 11:11 04/22/17 16:00 04/22/17 20:07 04/23/17 06:09 Bedside Glucose 95 mg/dl (70-90) 100 mg/dl (70-90) 153 mg/dl (70-90) 84 mg/dl (70-90) Test 04/23/17 06:32 04/23/17 08:00 Red Blood Count 4.43 M/uL (4.2-5.4) Mean Corpuscular Volume 83.7 fL (80-100) Mean Corpuscular Hemoglobin 26.0 pg (25-34) Mean Corpuscular Hemoglobin Concent 31.0 g/dl (32-36) RDW Standard Deviation 44.0 fL (36.4-46.3) RDW Coefficient of Variation 14.4 % (11.5-14.5) Mean Platelet Volume 10.3 fL (7.4-10.4) Anion Gap 10.0 mmol/L (3-11) Est Creatinine Clear Calc Drug Dose 7.2 ml/min Estimated GFR () 6.7 Estimated GFR (Non- 5.8 BUN/Creatinine Ratio 9.5 (10-20) Calcium Level 8.6 mg/dl (8.5-10.1) Hepatitis B Surface Antigen NEG (NEG) Hepatitis B Surface Antibody POS Allergies Coded Allergies: No Known Allergies (Verified , 04/21/17) Medications Current Inpatient Medications Medications (Trade) Dose Ordered Sig/Joana Route Start Time Stop Time Status Last Admin Dose Admin Albuterol/ Ipratropium (Duoneb) 3 ml Q2H PRN INH 04/21/17 21:45 05/21/17 21:44 Acetaminophen (Tylenol Tab) 650 mg Q4H PRN PO 04/21/17 21:45 05/21/17 21:44 Nitroglycerin (Nitrostat Tab) 0.4 mg UD PRN SL 04/21/17 21:45 05/21/17 21:44 Insulin Aspart (novoLOG ASPART) SLIDING SCALE If C... Q6 SC 04/22/17 00:00 05/22/17 00:00 Glucose (Glucose 40% Gel) 15-30 GRAMS 15 GRAMS... UD PRN PO 04/21/17 21:45 05/21/17 21:44 Glucose (Glucose Chew Tab) 4-8 Tablets 4 Tabl... UD PRN PO 04/21/17 21:45 05/21/17 21:44 Dextrose (Dextrose 50% 50ML Syringe) 25-50ML OF 50% DW IV FOR... UD PRN IV 04/21/17 21:45 05/21/17 21:44 Glucagon (Glucagon Inj) 1 mg UD PRN SQ 04/21/17 21:45 05/21/17 21:44 Hydromorphone HCl (Dilaudid Inj) 0.5 mg Q3H PRN IV 04/21/17 21:45 05/05/17 21:44 Tramadol HCl (Ultram Tab) 25 mg Q6H PRN PO 04/21/17 21:45 05/21/17 21:44 Prochlorperazine Edisylate 5 mg/ Syringe 5 ml @ 5 mls/min Q6H PRN IV 04/21/17 21:45 05/21/17 21:44 Lorazepam (Ativan Tab) 0.25 mg HS PRN PO 04/21/17 21:45 05/21/17 21:44 04/22/17 00:46 0.25 MG Amlodipine Besylate (Norvasc Tab) 10 mg DAILY PO 04/22/17 09:00 05/22/17 08:59 04/23/17 08:15 10 MG Hydralazine HCl (Apresoline Tab) 50 mg QID PO 04/22/17 09:00 05/22/17 08:59 04/23/17 08:12 50 MG Isosorbide Mononitrate (Imdur Ext Rel Tab) 90 mg QAM PO 04/22/17 09:00 05/22/17 08:59 04/23/17 08:13 90 MG Ranitidine HCl (zANTac TAB) 150 mg BID PO 04/22/17 09:00 05/22/17 08:59 04/23/17 08:15 150 MG Cholecalciferol (Vitamin D Tab) 5,000 inter.unit DAILY PO 04/22/17 09:00 05/22/17 08:59 04/23/17 08:16 5,000 INTER.UNIT Miscellaneous (Iv Fluids Completed) 1 ea PRN PRN N/A 04/21/17 22:15 04/21/18 22:14 Aspirin (Ecotrin Tab) 81 mg QAM PO 04/23/17 09:00 05/22/17 08:59 04/23/17 08:13 81 MG Non-Formulary Medication (Non-Formulary Patient'S Own Med) 1 ea QAM PO 04/23/17 09:00 05/23/17 08:59 04/23/17 08:13 1 EA Atorvastatin Calcium (Lipitor Tab) 40 mg HS PO 04/23/17 21:00 05/23/17 20:59 Impression (1) End-stage renal disease on hemodialysis (2) Chest pain (3) Elevated troponin (4) Diabetes mellitus Recommendations END STAGE RENAL DISEASE: -- Will provide heparin free HD today following cardiac catheterization -- HD orders placed in EMR today and HD RN notified -- Protect AVF CARDIAC: -- ECG and troponin levels reviewed -- Cardiac stress test 04/22/17 was positive for inducible myocardial ischemia -- Awaiting results of cardiac catheterization today HYPERTENSION: -- Continue Betaxolol, Isosorbide, Hydralazine and Amlodipine OTHER: -- Patient's sister yesterday. She may benefit from a short course of low dose Xanax at the time of discharge.
--- NOTE | 2017-04-23 11:33 | Post Sedation Assessment ---
Post Sedation Assessment General Date of Sedation Apr 23, 2017. Vital Signs: Vital Signs Past 12 Hours Date Time Temp Pulse Resp B/P (MAP) Pulse Ox O2 Delivery O2 Flow Rate FiO2 04/23/17 08:00 Nasal Cannula 3.0 04/23/17 07:43 36.9 65 18 134/67 (89) 96 3.0 04/23/17 04:04 37.1 61 18 138/64 (88) 92 Nasal Cannula 3.0 04/23/17 04:00 97 Nasal Cannula 2.0 04/23/17 00:14 37.0 62 20 135/67 (89) 99 Nasal Cannula 3.0 04/23/17 00:00 98 Nasal Cannula 2.0 Post Procedure Recovery Score Activity: (2) Moves 4 extremities * Respiration: (2) Deep breath/cough Circulation: (2) +/-20% PreAnes Value Consciousness: (2) Fully Awake Oxygen Saturation: (2) > 92% On Room Air Post Anesthesia Score: 10 Discharge Sedation Level of Care: Fast Track Phase II Post Sedation Plan On clinical assessment, the patient appears to have tolerated the sedation without complications. Patient is recovering as anticipated. Patient will continue to be monitored by nursing and may be discharged when sedation discharge criteria are met per below protocol. Upon Completions of procedure and additional 15 minutes continue every 5 minute vital signs and the P.A.R. score; then discharge to a Phase I or Fast Track to Phase II per the following guidelines: * Discharge Patient to appropriate Phase II area if PAR is 8 or greater or return to pre- procedure baseline. The post - procedure orders will be as directed. * If PAR score is less than 8 or not return to pre-procedure baseline then patient will follow Phase I monitoring till PAR is reached for Phase II. The Phase I may be done in procedure room or may call to secure a Phase I area. * If naloxone or flumazenil are used for reversal, hold in Phase I for an additional 60 -120 minutes before discharge to Phase II. Please call the Sedation Physician to re-evaluate and complete post-note for discharge to Phase II area. Do NOT discharge from procedure sedation or Phase 1 until post- sedation evaluation note is complete by procedure /sedation MD Sedation Discharge Instructions to be given to the patient at discharge to home.
--- NOTE | 2017-04-23 11:37 | Cardiology Consultation ---
Cardiology Consultation Date of Service Apr 23, 2017. Cardiology Consultation History: This is a 71-year-old female with end-stage renal disease on hemodialysis. While receiving dialysis she developed chest pain and dropped her blood pressure. She was admitted to the hospital and it was felt best that she undergo cardiac catheterization to exclude significant coronary artery disease. Procedure summary: Patient was seen and evaluated in the holding area the [employer]. After informed consent was obtained patient was taken to the cardiac catheterization lab where she was prepped and draped in the usual manner for right transfemoral approach. Preformed diagnostic catheters were utilized for the coronary angiograms. Following the procedure the arterial site was closed with a minx device the patient was returned to her room in stable condition. Coronary angiography: Selective injections of the left coronary artery revealed to be large and dominant. The left main trunk is widely patent. The LAD gives off a single large diagonal branch. The LAD system is widely patent. The left circumflex artery is hyperdominant. The left circumflex artery gives off a large mid obtuse first marginal. There is a second and third marginal branch supplying the posterior septum. Selective injections of the right coronary artery revealed to be nondominant. The right coronary artery is widely patent. Summary: Widely patent coronary anatomy. Recommendations: The patient will continue with medical therapy.
--- NOTE | 2017-04-23 11:40 | Cardiac Catheterization ---
Procedure Note Procedure Date Apr 23, 2017. Pre-Procedure Diagnosis Angina AUC Score 7 Post-Procedure Diagnosis Normal Coronary Arteries Procedure(s) Performed Coronary Angiography [employer] Agent Dr. Holbrook Sap Bw Bi Developer(s) None Estimated Blood Loss None Medication(s) Versed, Lidocaine 1% Summary of Findings See dictated report Hemodynamics Rest Ao: 115/50 Final Ao: 118/44 LV: Valve not crossed Recommendations Medical therapy and/or Counseling Specimens None Radiation Exposure (mGy) 936 Contrast (mls) 71 Procedural Complication(s) None Disposition Recovery Room / PACU ACC Data Cardiac Status Clinical evaluation leading to the procedure CAD Presntation: Sx unlikely to be ischemic Anginal Classification: No symptoms Heart Failure: No Cardiogenic Shock w/in 24Hrs: No Cardiac Arrest w/in 24Hrs: No Stress studies past 6 months: No Coronary Anatomy Dominant: Left Left Main (% Stenosis): Normal LAD (% Stenosis): Normal Circumflex (% Stenosis): Normal RCA (% Stenosis): Normal Diagnostic Status: Urgent Closure Device Percutaneous Entry Location: Femoral Closure Device: Mynx
[2017-04-23] MEDS ORDERED: ONDANSETRON INJ 2 MG/ML 2 ML VIAL IV PRN (11:45)
[2017-04-23] MEDS ORDERED: ATROPINE SULFATE 0.1 MG/ML 5ML SYR IV PRN (11:45)
[2017-04-23] MEDS ORDERED: ACETAMINOPHEN 325 MG TAB PO PRN (11:45)
[2017-04-23] MEDS ORDERED: SODIUM CHLORIDE 0.9% 1000ML 250 ML IV PRN (12:35)
[2017-04-23] MEDS ORDERED: SODIUM CHLORIDE 0.9% 1000ML 1,000 ML IV SCH (12:35)
--- NOTE | 2017-04-23 15:04 | Cardiology Follow-Up ---
Subjective Subjective Date of Service: Apr 23, 2017. Pt evaluation today including: conversation w/ patient, physical exam, chart review, lab review, review of studies, review of inpatient medication list Additional Details: Pt seen and examined s/p cath with daughter at bedside. States that she feels well. Denies cp, sob, palpitations, lightheadedness or dizziness. Tele reviewed: sinus rhythm without arrhythmia or significant ectopy. Problem List Medical Problems: (1) Elevated troponin Status: Acute (2) Precordial chest pain Status: Acute Review of Systems Constitutional: No fever, No chills Respiratory: + shortness of breath (intermittent), No cough, No sputum, No wheezing, No dyspnea on exertion, No dyspnea at rest, No hemoptysis Cardiac: No chest pain (improved) Objective Vital Signs Last Vital Signs Documentation Date Time Temp Pulse Resp B/P (MAP) Pulse Ox O2 Delivery O2 Flow Rate FiO2 04/23/17 14:45 61 16 135/69 (91) 91 Room Air 04/23/17 13:45 1.0 04/23/17 11:45 36.5 Physical Exam: General Appearance: WD/WN, no apparent distress Eyes: bilateral eyes normal inspection, bilateral eyes PERRL, bilateral eyes EOMI ENT: normal ENT inspection, hearing grossly normal, pharynx normal Neck: supple, no adenopathy, thyroid normal, no JVD Respiratory/Chest: chest non-tender, lungs clear, normal breath sounds, no respiratory distress, no accessory muscle use Cardiovascular: regular rate, rhythm, no edema, no JVD, no murmur, + gallop/S4 Abdomen: normal bowel sounds, non tender, soft, no organomegaly Extremities: non-tender, normal inspection, no pedal edema, no calf tenderness Neurologic/Psychiatric: still runner II-XII nml as tested, no motor/sensory deficits, alert, normal mood/affect, oriented x 3 Skin: normal color, warm/dry, no rash Lymphatic: no adenopathy Assessment and Plan 1. chest pain resolved cardiac cath showing widely patent coronary arteries stress test was a false positive finding no further cardiac testing necessary no cardiac follow/up necessary at this time. 2. hypotension on HD unfortunately, I do not see any cardiac component at this time ok to d/c to home from cardiac standpoint.
--- NOTE | 2017-04-23 17:41 | Progress Note ---
Subjective Date of Service: Apr 23, 2017. Subjective Pt evaluation today including: conversation w/ patient, physical exam, lab review, review of studies, review of inpatient medication list Saw/examined the patient in room 215 Daughter in the room with the patient had a cardiac cath today - negative findings patient awaiting dialysis tonight denies any symptoms at this time Problem List Medical Problems: (1) Elevated troponin Status: Acute (2) Precordial chest pain Status: Acute Review of Systems Constitutional: No fever, No chills Respiratory: No cough, No sputum, No shortness of breath Cardiac: No chest pain, No edema, No palpitations Medications Current Inpatient Medications Medications (Trade) Dose Ordered Sig/Joana Route Start Time Stop Time Status Last Admin Dose Admin Albuterol/ Ipratropium (Duoneb) 3 ml Q2H PRN INH 04/21/17 21:45 05/21/17 21:44 Acetaminophen (Tylenol Tab) 650 mg Q4H PRN PO 04/21/17 21:45 05/21/17 21:44 Nitroglycerin (Nitrostat Tab) 0.4 mg UD PRN SL 04/21/17 21:45 05/21/17 21:44 Glucose (Glucose 40% Gel) 15-30 GRAMS 15 GRAMS... UD PRN PO 04/21/17 21:45 05/21/17 21:44 Glucose (Glucose Chew Tab) 4-8 Tablets 4 Tabl... UD PRN PO 04/21/17 21:45 05/21/17 21:44 Dextrose (Dextrose 50% 50ML Syringe) 25-50ML OF 50% DW IV FOR... UD PRN IV 04/21/17 21:45 05/21/17 21:44 Glucagon (Glucagon Inj) 1 mg UD PRN SQ 04/21/17 21:45 05/21/17 21:44 Hydromorphone HCl (Dilaudid Inj) 0.5 mg Q3H PRN IV 04/21/17 21:45 05/05/17 21:44 Tramadol HCl (Ultram Tab) 25 mg Q6H PRN PO 04/21/17 21:45 05/21/17 21:44 Prochlorperazine Edisylate 5 mg/ Syringe 5 ml @ 5 mls/min Q6H PRN IV 04/21/17 21:45 05/21/17 21:44 Lorazepam (Ativan Tab) 0.25 mg HS PRN PO 04/21/17 21:45 05/21/17 21:44 04/22/17 00:46 0.25 MG Amlodipine Besylate (Norvasc Tab) 10 mg DAILY PO 04/22/17 09:00 05/22/17 08:59 04/23/17 08:15 10 MG Hydralazine HCl (Apresoline Tab) 50 mg QID PO 04/22/17 09:00 05/22/17 08:59 04/23/17 17:04 50 MG Isosorbide Mononitrate (Imdur Ext Rel Tab) 90 mg QAM PO 04/22/17 09:00 05/22/17 08:59 04/23/17 08:13 90 MG Ranitidine HCl (zANTac TAB) 150 mg BID PO 04/22/17 09:00 05/22/17 08:59 04/23/17 08:15 150 MG Cholecalciferol (Vitamin D Tab) 5,000 inter.unit DAILY PO 04/22/17 09:00 05/22/17 08:59 04/23/17 08:16 5,000 INTER.UNIT Miscellaneous (Iv Fluids Completed) 1 ea PRN PRN N/A 04/21/17 22:15 04/21/18 22:14 Aspirin (Ecotrin Tab) 81 mg QAM PO 04/23/17 09:00 05/22/17 08:59 04/23/17 08:13 81 MG Non-Formulary Medication (Non-Formulary Patient'S Own Med) 1 ea QAM PO 04/23/17 09:00 05/23/17 08:59 04/23/17 08:13 1 EA Atorvastatin Calcium (Lipitor Tab) 40 mg HS PO 04/23/17 21:00 05/23/17 20:59 Sodium Chloride 1,000 ml @ 15 mls/hr Q24H IV 04/23/17 12:35 05/23/17 12:34 Acetaminophen (Tylenol Tab) 650 mg Q4H PRN PO 04/23/17 11:45 05/23/17 11:44 Sodium Chloride 250 ml @ 999 mls/hr Q16M PRN IV 04/23/17 12:35 05/23/17 12:34 Atropine Sulfate (Atropine Sulfate 0.1mg/ml Inj) 0.6 mg PRN PRN IV 04/23/17 11:45 05/23/17 11:44 Ondansetron HCl (Zofran Inj) 4 mg Q6H PRN IV 04/23/17 11:45 05/23/17 11:44 Insulin Aspart (novoLOG ASPART) SLIDING SCALE If C... ACHS SC 04/23/17 16:15 05/22/17 00:00 Objective Vital Signs Date Time Temp Pulse Resp B/P (MAP) Pulse Ox O2 Delivery O2 Flow Rate FiO2 04/23/17 16:28 36.6 59 16 128/64 (85) 91 Room Air 04/23/17 16:00 Room Air 04/23/17 15:45 58 16 143/67 (92) 92 Room Air 04/23/17 14:45 61 16 135/69 (91) 91 Room Air 04/23/17 13:45 58 16 127/61 (83) 100 Nasal Cannula 1.0 04/23/17 13:15 58 16 125/64 (84) 100 Nasal Cannula 1.0 04/23/17 12:45 57 18 132/66 (88) 100 Nasal Cannula 2.0 04/23/17 12:30 55 18 136/67 (90) 92 Nasal Cannula 2.0 04/23/17 12:15 59 16 132/67 (88) 92 Nasal Cannula 2.0 04/23/17 12:00 57 16 122/66 (84) 93 Nasal Cannula 2.0 04/23/17 12:00 Nasal Cannula 3.0 04/23/17 11:45 36.5 59 18 127/66 (86) 92 Nasal Cannula 2.0 04/23/17 11:34 Room Air 04/23/17 11:29 59 16 132/67 (88) 96 Room Air 04/23/17 08:00 Nasal Cannula 3.0 04/23/17 07:43 36.9 65 18 134/67 (89) 96 3.0 04/23/17 04:04 37.1 61 18 138/64 (88) 92 Nasal Cannula 3.0 04/23/17 04:00 97 Nasal Cannula 2.0 04/23/17 00:14 37.0 62 20 135/67 (89) 99 Nasal Cannula 3.0 04/23/17 00:00 98 Nasal Cannula 2.0 04/22/17 20:37 36.8 60 18 145/73 (97) 91 Nasal Cannula 3.0 04/22/17 20:00 Nasal Cannula 3.0 Physical Exam General Appearance: no apparent distress Respiratory/Chest: no respiratory distress, no accessory muscle use Cardiovascular: regular rate, rhythm, no edema, no murmur Extremities: normal inspection, no pedal edema Neurologic/Psychiatric: no motor/sensory deficits, alert, normal mood/affect Laboratory Results Last 24 Hours Test 04/22/17 20:07 04/23/17 06:09 04/23/17 06:32 04/23/17 08:00 Bedside Glucose 153 mg/dl 84 mg/dl White Blood Count 6.00 K/uL Red Blood Count 4.43 M/uL Hemoglobin 11.5 g/dL Hematocrit 37.1 % Mean Corpuscular Volume 83.7 fL Mean Corpuscular Hemoglobin 26.0 pg Mean Corpuscular Hemoglobin Concent 31.0 g/dl RDW Standard Deviation 44.0 fL RDW Coefficient of Variation 14.4 % Platelet Count 134 K/uL Mean Platelet Volume 10.3 fL Sodium Level 137 mmol/L Potassium Level 5.0 mmol/L Chloride Level 101 mmol/L Carbon Dioxide Level 26 mmol/L Anion Gap 10.0 mmol/L Blood Urea Nitrogen 63 mg/dl Creatinine 6.60 mg/dl Est Creatinine Clear Calc Drug Dose 7.2 ml/min Estimated GFR () 6.7 Estimated GFR (Non- 5.8 BUN/Creatinine Ratio 9.5 Random Glucose 81 mg/dl Calcium Level 8.6 mg/dl Hepatitis B Surface Antigen NEG Hepatitis B Surface Antibody POS Test 04/23/17 12:04 04/23/17 16:08 Bedside Glucose 91 mg/dl 116 mg/dl Assessment and Plan This is a 71 year old female with a PMH of ESRD on hemodialysis on , LAUREN on CPAP, HTN, diet controlled DM2 - presents with chest pain and elevated troponin Chest Pain - resolved 3/2 non-ischemic; non-cardiac likely secondary to hypotension 04/22 presented with chest pain and elevated troponin had a dobutamine stress test and is positive cardiac cath is planned for the AM cont. aspirin and statin for now continue Imdur and Hydralazine ESRD on hemodialysis to receive HD today 3/2 appreciate nephrology input HTN blood pressure is stable continue Norvasc diet controlled DM2 Ha1c = 4.9% DVT ppx SCDs FULL CODE
[2017-04-24] VITALS (8 sets, daily range): BP systolic 126–162; BP diastolic 58–73; PULSE 63–70; TEMP 36.7–37.1; O2SAT 63–93
[2017-04-24] MEDS: INSULIN ASPART 100 UNITS/ML 3 ML PEN SC SCH ×2 (07:00→11:00)
[2017-04-24] MEDS: ISOSORBIDE MONONITRATE 30 MG TABCR PO SCH (08:08)
[2017-04-24] MEDS: ASPIRIN 81 MG ECTAB PO SCH (08:08)
[2017-04-24] MEDS: AMLODIPINE BESYLATE 5 MG TAB PO SCH (08:09)
[2017-04-24] MEDS: BETAXOLOL 10 MG PO SCH (08:09)
[2017-04-24] MEDS: CHOLECALCIFEROL 1000 INTER.UNIT TAB PO SCH (08:10)
[2017-04-24] MEDS: RANITIDINE HCL 150 MG TAB PO SCH (08:10)
[2017-04-24 09:02] LABS: HEMATOCRIT 38.2 % (37-47); HEMOGLOBIN 11.8 g/dL (12.0-16.0); MEAN CORPUSCULAR HEMOGLOBIN 25.9 pg (25-34); MEAN CORPUSCULAR HGB CONC 30.9 g/dl (32-36); MEAN PLATELET VOLUME 10.9 fL (7.4-10.4); PLATELET COUNT 117 K/uL (130-400); RED CELL DISTRIBUTION WIDTH CV 14.3 % (11.5-14.5); RED CELL DISTRIBUTION WIDTH SD 43.6 fL (36.4-46.3); WHITE BLOOD COUNT 5.11 K/uL (4.8-10.8)
[2017-04-24 09:40] LABS: CALCIUM 8.6 mg/dl (8.5-10.1); CREATININE 3.4 mg/dl (0.60-1.20)
--- NOTE | 2017-04-24 10:24 | Progress Note ---
Subjective Date of Service: Apr 24, 2017. Subjective Pt evaluation today including: conversation w/ patient, physical exam, lab review, review of studies, review of inpatient medication list Saw/examined the patient in room 215 No problems/issues to note today Eager to go home She denies chest pain/shortness of breath Received dialysis late last evening and ended at about 1AM, so she feels tired, but no other symptoms Problem List Medical Problems: (1) Elevated troponin Status: Acute (2) Precordial chest pain Status: Acute Review of Systems Respiratory: No cough, No sputum, No wheezing, No shortness of breath, No dyspnea on exertion Cardiac: No chest pain Medications Current Inpatient Medications Medications (Trade) Dose Ordered Sig/Joana Route Start Time Stop Time Status Last Admin Dose Admin Albuterol/ Ipratropium (Duoneb) 3 ml Q2H PRN INH 04/21/17 21:45 05/21/17 21:44 Acetaminophen (Tylenol Tab) 650 mg Q4H PRN PO 04/21/17 21:45 05/21/17 21:44 04/23/17 20:06 650 MG Nitroglycerin (Nitrostat Tab) 0.4 mg UD PRN SL 04/21/17 21:45 05/21/17 21:44 Glucose (Glucose 40% Gel) 15-30 GRAMS 15 GRAMS... UD PRN PO 04/21/17 21:45 05/21/17 21:44 Glucose (Glucose Chew Tab) 4-8 Tablets 4 Tabl... UD PRN PO 04/21/17 21:45 05/21/17 21:44 Dextrose (Dextrose 50% 50ML Syringe) 25-50ML OF 50% DW IV FOR... UD PRN IV 04/21/17 21:45 05/21/17 21:44 Glucagon (Glucagon Inj) 1 mg UD PRN SQ 04/21/17 21:45 05/21/17 21:44 Hydromorphone HCl (Dilaudid Inj) 0.5 mg Q3H PRN IV 04/21/17 21:45 05/05/17 21:44 Tramadol HCl (Ultram Tab) 25 mg Q6H PRN PO 04/21/17 21:45 05/21/17 21:44 Prochlorperazine Edisylate 5 mg/ Syringe 5 ml @ 5 mls/min Q6H PRN IV 04/21/17 21:45 05/21/17 21:44 04/24/17 00:00 5 MLS/MIN Lorazepam (Ativan Tab) 0.25 mg HS PRN PO 04/21/17 21:45 05/21/17 21:44 04/22/17 00:46 0.25 MG Amlodipine Besylate (Norvasc Tab) 10 mg DAILY PO 04/22/17 09:00 05/22/17 08:59 04/24/17 08:09 10 MG Hydralazine HCl (Apresoline Tab) 50 mg QID PO 04/22/17 09:00 05/22/17 08:59 04/24/17 08:08 50 MG Isosorbide Mononitrate (Imdur Ext Rel Tab) 90 mg QAM PO 04/22/17 09:00 05/22/17 08:59 04/24/17 08:08 90 MG Ranitidine HCl (zANTac TAB) 150 mg BID PO 04/22/17 09:00 05/22/17 08:59 04/24/17 08:10 150 MG Cholecalciferol (Vitamin D Tab) 5,000 inter.unit DAILY PO 04/22/17 09:00 05/22/17 08:59 04/24/17 08:10 5,000 INTER.UNIT Miscellaneous (Iv Fluids Completed) 1 ea PRN PRN N/A 04/21/17 22:15 04/21/18 22:14 Aspirin (Ecotrin Tab) 81 mg QAM PO 04/23/17 09:00 05/22/17 08:59 04/24/17 08:08 81 MG Non-Formulary Medication (Non-Formulary Patient'S Own Med) 1 ea QAM PO 04/23/17 09:00 05/23/17 08:59 04/24/17 08:09 1 EA Atorvastatin Calcium (Lipitor Tab) 40 mg HS PO 04/23/17 21:00 05/23/17 20:59 04/23/17 20:06 40 MG Sodium Chloride 1,000 ml @ 15 mls/hr Q24H IV 04/23/17 12:35 05/23/17 12:34 Acetaminophen (Tylenol Tab) 650 mg Q4H PRN PO 04/23/17 11:45 05/23/17 11:44 Sodium Chloride 250 ml @ 999 mls/hr Q16M PRN IV 04/23/17 12:35 05/23/17 12:34 Atropine Sulfate (Atropine Sulfate 0.1mg/ml Inj) 0.6 mg PRN PRN IV 04/23/17 11:45 05/23/17 11:44 Ondansetron HCl (Zofran Inj) 4 mg Q6H PRN IV 04/23/17 11:45 05/23/17 11:44 04/23/17 21:37 4 MG Insulin Aspart (novoLOG ASPART) SLIDING SCALE If C... ACHS SC 04/23/17 16:15 05/22/17 00:00 Objective Vital Signs Date Time Temp Pulse Resp B/P (MAP) Pulse Ox O2 Delivery O2 Flow Rate FiO2 04/24/17 08:00 Room Air 04/24/17 07:40 37.1 65 16 162/70 (100) 90 Room Air 04/24/17 04:00 Room Air 04/24/17 03:00 36.9 66 18 158/73 (101) 93 Room Air 04/24/17 01:00 36.7 70 146/71 (96) 04/24/17 00:30 66 142/65 04/24/17 00:15 69 145/71 04/24/17 00:00 Room Air 04/24/17 00:00 70 126/58 04/23/17 23:45 67 142/64 04/23/17 23:30 59 117/52 04/23/17 23:15 64 125/61 04/23/17 23:05 37.0 65 16 123/57 (79) 92 Room Air 04/23/17 23:00 61 123/57 04/23/17 22:45 66 114/55 04/23/17 22:30 64 122/65 04/23/17 22:15 63 133/69 04/23/17 22:00 63 136/70 04/23/17 21:45 63 119/61 04/23/17 21:30 65 133/65 04/23/17 21:15 65 120/59 04/23/17 21:00 67 133/61 04/23/17 20:45 66 148/69 04/23/17 20:34 37.0 69 155/71 (99) 04/23/17 20:00 Room Air 04/23/17 16:28 36.6 59 16 128/64 (85) 91 Room Air 04/23/17 16:00 Room Air 04/23/17 15:45 58 16 143/67 (92) 92 Room Air 04/23/17 14:45 61 16 135/69 (91) 91 Room Air 04/23/17 13:45 58 16 127/61 (83) 100 Nasal Cannula 1.0 04/23/17 13:15 58 16 125/64 (84) 100 Nasal Cannula 1.0 04/23/17 12:45 57 18 132/66 (88) 100 Nasal Cannula 2.0 04/23/17 12:30 55 18 136/67 (90) 92 Nasal Cannula 2.0 04/23/17 12:15 59 16 132/67 (88) 92 Nasal Cannula 2.0 04/23/17 12:00 57 16 122/66 (84) 93 Nasal Cannula 2.0 04/23/17 12:00 Nasal Cannula 3.0 04/23/17 11:45 36.5 59 18 127/66 (86) 92 Nasal Cannula 2.0 04/23/17 11:34 Room Air 04/23/17 11:29 59 16 132/67 (88) 96 Room Air Physical Exam General Appearance: no apparent distress Respiratory/Chest: lungs clear, normal breath sounds, no respiratory distress, no accessory muscle use Cardiovascular: regular rate, rhythm, no edema, + systolic murmur Extremities: normal inspection, no pedal edema, + pertinent finding (Fistula L arm) Laboratory Results Last 24 Hours Test 04/23/17 12:04 04/23/17 16:08 04/23/17 20:25 04/24/17 06:34 Bedside Glucose 91 mg/dl 116 mg/dl 106 mg/dl 81 mg/dl Test 04/24/17 08:24 White Blood Count 5.11 K/uL Red Blood Count 4.55 M/uL Hemoglobin 11.8 g/dL Hematocrit 38.2 % Mean Corpuscular Volume 84.0 fL Mean Corpuscular Hemoglobin 25.9 pg Mean Corpuscular Hemoglobin Concent 30.9 g/dl RDW Standard Deviation 43.6 fL RDW Coefficient of Variation 14.3 % Platelet Count 117 K/uL Mean Platelet Volume 10.9 fL Sodium Level 136 mmol/L Potassium Level 4.0 mmol/L Chloride Level 103 mmol/L Carbon Dioxide Level 27 mmol/L Anion Gap 6.0 mmol/L Blood Urea Nitrogen 18 mg/dl Creatinine 3.40 mg/dl Est Creatinine Clear Calc Drug Dose 13.9 ml/min Estimated GFR () 14.9 Estimated GFR (Non- 12.9 BUN/Creatinine Ratio 5.4 Random Glucose 140 mg/dl Calcium Level 8.6 mg/dl Assessment and Plan This is a 71 year old female with a PMH of ESRD on hemodialysis on , LAUREN on CPAP, HTN, diet controlled DM2 - presents with chest pain and elevated troponin Chest Pain - resolved 3 patient is doing well clinically will plan to d/c home today will remain on the same medications currently 3/2 non-ischemic; non-cardiac likely secondary to hypotension 04/22 presented with chest pain and elevated troponin had a dobutamine stress test and is positive cardiac cath is planned for the AM cont. aspirin and statin for now continue Imdur and Hydralazine ESRD on hemodialysis to receive HD today 3/2 appreciate nephrology input HTN blood pressure is stable continue Norvasc diet controlled DM2 Ha1c = 4.9% DVT ppx SCDs FULL CODE
[2017-04-24] MEDS ORDERED: ASPEC81 PO (10:25)
--- NOTE | 2017-04-24 10:30 | Discharge Instructions ---
Discharge Instructions Date of Service Apr 24, 2017. Admission Reason for Admission: Chest Pain Discharge Discharge Diagnosis / Problem: Chest Pain, possibly secondary to hypotension episode Discharge Goals Goal(s): Decrease discomfort, Improve function, Diagnostic testing, Therapeutic intervention Activity Recommendations Activity Limitations: resume your previous activity . Instructions / Follow-Up Instructions / Follow-Up Please follow-up with Clementina Joy PA-C in Dr. Yuen's office on April 28 at 12:35PM Continue dialysis on Wednesday, Wednesday, and Wednesday Current Hospital Diet Patient's current hospital diet: Renal Diet, AHA Diet (Heart Healthy) Discharge Diet Recommended Diet: AHA Diet (Heart Healthy), Renal Diet Pending Studies Studies pending at discharge: no Medical Emergencies . Who to Call and When: Medical Emergencies: If at any time you feel your situation is an emergency, please call 911 immediately. . Non-Emergent Contact Non-Emergency issues call your: Primary Care Provider, [employer] Worker . . "Provider Documentation" section prepared by Francis Morocho. . VTE Core Measure Inpt VTE Proph given/why not?: SCD's [place] Drug Monitoring Program Search Results: patient reviewed within database, no issues identified
--- NOTE | 2017-04-24 10:37 | Discharge Summary ---
Discharge Summary Date of Service Apr 24, 2017. Discharge Summary Admission Date: Apr 22, 2017 at 12:52 Discharge Date: Apr 24, 2017 Discharge Disposition: Home Principal Diagnosis: Chest Pain Hypotension ESRD on HD Medication Reconciliation New Medications: Aspirin (Aspirin EC Low Dose) 81 Mg Ectab 81 MG PO QAM for 30 Days, #30 TABS Continued Medications: Amlodipine (Norvasc) 10 Mg Tab 10 MG PO DAILY Atorvastatin (Lipitor) 40 Mg Tab 40 MG PO DAILY Betaxolol Hcl (Betaxolol Hcl) 10 Mg Tab 10 MG PO DAILY Cholecalciferol (Vitamin D) 5,000 Unit Tab 5000 UNITS PO DAILY Hydralazine Hcl (Apresoline) 50 Mg Tab 50 MG PO QID Isosorbide Mononitrate (Isosorbide Mononitrate ER) 60 Mg Tab 90 MG PO QAM 1 1/2 TABLET Lidocaine (Anorectal) (Lidocaine) Unknown Strength Cre 1 APPLN TOP MWF APPLY TO [facility] 1-2 HOUR PRE DIALYSIS AND COVER WITH OCCLUSIVE DRESSING M-W-F, DIRECTED, PER MED LIST Ranitidine HCl (Ranitidine HCl) 150 Mg Tab 150 MG PO BID Admission Information HPI (per Admitting provider): DATE OF ADMISSION: 04/21/2017 PRIMARY CARE DOCTOR: Dr. Yuen. CHIEF COMPLAINT: Chest pain. History obtained from patient's daughter and records. HISTORY OF PRESENT ILLNESS: Medical history significant for hypertension, diet-controlled DM, end-stage renal disease on HD. LAUREN on CPAP Recent confinement at [facility] last December 2012 for chest pain. Patient also had hypertensive urgency at that time. Stress test was normal. Recent confinement for chest pain during a vacation at [facility] last year at a local hospital. Patient observed overnight at the hospital. Outpatient stress test June 2016 she negative for inducible ischemia. This afternoon, the patient was having dialysis. Blood pressure was noted to be low as per patient when she had achy pain across her chest with some shortness of breath. Nonpleuritic. Dry cough symptoms. Patient given IV fluids. Relief of chest pain with aspirin and nitroglycerin given in route to the hospital. MEDICAL HISTORY: As above. Hemodialysis Wednesday. SURGERIES: Appendectomy, hysterectomy, thyroidectomy, back surgery, vascular procedures, cataract surgery HOME MEDICATIONS: Lipitor, Norvasc, betaxolol vitamin D3, hydralazine, isosorbide mononitrate, lidocaine, Zantac and aspirin. ALLERGIES: No known drug allergies. FAMILY HISTORY: Heart disease, hypertension PERSONAL AND SOCIAL HISTORY: Nonsmoker, no chronic intake of alcohol beverages , homemaker in her younger years. REVIEW OF SYSTEMS: As per HPI. All 10 systems reviewed, all other ROS negative. PHYSICAL EXAMINATION: VITAL SIGNS: Blood pressure was noted to be 154/60, pulse 60, RR 18; sats 89% on room air, later 96% on 3 liters. GENERAL: Noted to be anxious, no respiratory distress. SKIN: Normal color, warm. HEENT: [place] palpebral conjunctivae. No ptosis. Dry mucosa. Nasal cannula in place NECK: Short, supple. CHEST: Decreased breath sounds. No tenderness. HEART: RRR, systolic murmur. ABDOMEN: Soft, some distension. EXTREMITIES: Minimal LE edema, no tenderness. No gross deformity. NEUROLOGIC: Coherent. No gross focality. LABORATORY DATA: Hemoglobin was noted to be 13.1, hematocrit 38.5, ____ platelets 122 Sodium 140 potassium 4.7, chloride 98, CO2 31, BUN 39, creatinine 4.7, glucose 82. Troponin 0.112. IMAGING DATA: Chest x-ray showed cardiomegaly, mild central vascular prominence. No overt edema. EKG as per my interpretation - rate 60, normal sinus rhythm, LAD, LAFB, left atrial enlargement, some diffuse T-wave flattening/inversion. ASSESSMENT AND PLAN: 1. Chest pain relieved by nitroglycerin possible acute coronary syndrome. 2. HTN Transient hypotensive episode during dialysis. Patient BP actually on the higher side 3. Hypoxemic resp failure Mild pulmonary congestion on CXR Possibly from IV fluid given hypotensive episode at dialysis center ESRD on HD. 4. DM2, diet controlled, well controlled as of recent A1c of 4.6 last December 2016. 5. Thrombocytopenia, rule out heparin-induced thrombocytopenia. PLAN: Observation PCU. Trend cardiac markers. Continue aspirin for CAD prevention until ACS ruled out. Cardio consult. RE chest pain. (Patient known to [facility].) Supplemental O2, baseline ABG, nebs prn Nephrology consult RE dialysis management (Patient known to Dr. Schrader.) Check HIT screen. ISS BG goal 140-180 DVT prophylaxis SCDs. RE thrombocytopenia Full code. Patient's daughter requesting for updates from providers. Dr. Jenny Ward at [phone]. Hospital Course This is a 71 year old female with a PMH of ESRD on hemodialysis on , LAUREN on CPAP, HTN, diet controlled DM2 - presents with chest pain and elevated troponin Chest Pain - resolved 3/ patient is doing well clinically will plan to d/c home today will remain on the same medications currently 3/2 non-ischemic; non-cardiac likely secondary to hypotension 04/22 presented with chest pain and elevated troponin had a dobutamine stress test and is positive cardiac cath is planned for the AM cont. aspirin and statin for now continue Imdur and Hydralazine ESRD on hemodialysis to receive HD today 3/2 appreciate nephrology input HTN blood pressure is stable continue Norvasc diet controlled DM2 Ha1c = 4.9% DVT ppx SCDs FULL CODE Total time spent on discharge = 25 minutes This includes examination of the patient, discharge planning, medication reconciliation, and communication with other providers. Discharge Instructions Please follow-up with Clementina Joy PA-C in Dr. Yuen's office on Wednesday, April 28 at 12:35PM Continue dialysis on Wednesday, Wednesday, and Wednesday
--- NOTE | 2017-04-24 11:29 | Nephrology Progress Note ---
Nephrology Progress Note Date of Service Apr 24, 2017. Chief Complaint Follow-up for end-stage renal disease on hemodialysis. Subjective was seen and examined in her room this morning with her family at bedside. She has been otherwise feeling well, denies any further episode of chest pain, shortness of breath or diaphoresis. Blood pressure has been running relatively high. The had dialysis yesterday, currently electrolyte and volume status acceptable. Review of Systems A complete review of systems was performed. Pertinent positives are noted above. All other systems are negative. Vital Signs Last 8 Hrs Date Time Temp Pulse Resp B/P (MAP) Pulse Ox O2 Delivery O2 Flow Rate FiO2 04/24/17 08:00 Room Air 04/24/17 07:40 37.1 65 16 162/70 (100) 90 Room Air 04/24/17 04:00 Room Air 04/24/17 03:00 36.9 66 18 158/73 (101) 93 Room Air Last Recorded Weight Weight (Kilograms): 70.200 Physical Exam GENERAL: Elderly female, AAA x 3, pleasant, healthy-appearing, not in any distress. NECK: Supple, no JVD. RESPIRATORY: Normal breathing efforts, no accessory muscle use, clear to auscultation bilaterally, no wheezes or rales. CARDIOVASCULAR: S1, S2 normal, rate rhythm regular. EXTREMITY: No lower extremity edema NEURO: speech fluent. PSYCHIATRY: Normal mood and judgment Family History No pertinent family history Negative for CKD / ESRD Social History Drug Use: none Occupation: retired . Retired. Never a smoker. Laboratory Results Past 24 Hours 04/24/17 08:24 04/24/17 08:24 Test 04/23/17 12:04 04/23/17 16:08 04/23/17 20:25 04/24/17 06:34 Bedside Glucose 91 mg/dl (70-90) 116 mg/dl (70-90) 106 mg/dl (70-90) 81 mg/dl (70-90) Test 04/24/17 08:24 Red Blood Count 4.55 M/uL (4.2-5.4) Mean Corpuscular Volume 84.0 fL (80-100) Mean Corpuscular Hemoglobin 25.9 pg (25-34) Mean Corpuscular Hemoglobin Concent 30.9 g/dl (32-36) RDW Standard Deviation 43.6 fL (36.4-46.3) RDW Coefficient of Variation 14.3 % (11.5-14.5) Mean Platelet Volume 10.9 fL (7.4-10.4) Anion Gap 6.0 mmol/L (3-11) Est Creatinine Clear Calc Drug Dose 13.9 ml/min Estimated GFR () 14.9 Estimated GFR (Non- 12.9 BUN/Creatinine Ratio 5.4 (10-20) Calcium Level 8.6 mg/dl (8.5-10.1) Allergies Coded Allergies: No Known Allergies (Verified , 04/21/17) Medications Current Inpatient Medications Medications (Trade) Dose Ordered Sig/Joana Route Start Time Stop Time Status Last Admin Dose Admin Albuterol/ Ipratropium (Duoneb) 3 ml Q2H PRN INH 04/21/17 21:45 05/21/17 21:44 Acetaminophen (Tylenol Tab) 650 mg Q4H PRN PO 04/21/17 21:45 05/21/17 21:44 04/23/17 20:06 650 MG Nitroglycerin (Nitrostat Tab) 0.4 mg UD PRN SL 04/21/17 21:45 05/21/17 21:44 Glucose (Glucose 40% Gel) 15-30 GRAMS 15 GRAMS... UD PRN PO 04/21/17 21:45 05/21/17 21:44 Glucose (Glucose Chew Tab) 4-8 Tablets 4 Tabl... UD PRN PO 04/21/17 21:45 05/21/17 21:44 Dextrose (Dextrose 50% 50ML Syringe) 25-50ML OF 50% DW IV FOR... UD PRN IV 04/21/17 21:45 05/21/17 21:44 Glucagon (Glucagon Inj) 1 mg UD PRN SQ 04/21/17 21:45 05/21/17 21:44 Hydromorphone HCl (Dilaudid Inj) 0.5 mg Q3H PRN IV 04/21/17 21:45 05/05/17 21:44 Tramadol HCl (Ultram Tab) 25 mg Q6H PRN PO 04/21/17 21:45 05/21/17 21:44 Prochlorperazine Edisylate 5 mg/ Syringe 5 ml @ 5 mls/min Q6H PRN IV 04/21/17 21:45 05/21/17 21:44 04/24/17 00:00 5 MLS/MIN Lorazepam (Ativan Tab) 0.25 mg HS PRN PO 04/21/17 21:45 05/21/17 21:44 04/22/17 00:46 0.25 MG Amlodipine Besylate (Norvasc Tab) 10 mg DAILY PO 04/22/17 09:00 05/22/17 08:59 04/24/17 08:09 10 MG Hydralazine HCl (Apresoline Tab) 50 mg QID PO 04/22/17 09:00 05/22/17 08:59 04/24/17 08:08 50 MG Isosorbide Mononitrate (Imdur Ext Rel Tab) 90 mg QAM PO 04/22/17 09:00 05/22/17 08:59 04/24/17 08:08 90 MG Ranitidine HCl (zANTac TAB) 150 mg BID PO 04/22/17 09:00 05/22/17 08:59 04/24/17 08:10 150 MG Cholecalciferol (Vitamin D Tab) 5,000 inter.unit DAILY PO 04/22/17 09:00 05/22/17 08:59 04/24/17 08:10 5,000 INTER.UNIT Miscellaneous (Iv Fluids Completed) 1 ea PRN PRN N/A 04/21/17 22:15 04/21/18 22:14 Aspirin (Ecotrin Tab) 81 mg QAM PO 04/23/17 09:00 05/22/17 08:59 04/24/17 08:08 81 MG Non-Formulary Medication (Non-Formulary Patient'S Own Med) 1 ea QAM PO 04/23/17 09:00 05/23/17 08:59 04/24/17 08:09 1 EA Atorvastatin Calcium (Lipitor Tab) 40 mg HS PO 04/23/17 21:00 05/23/17 20:59 04/23/17 20:06 40 MG Sodium Chloride 1,000 ml @ 15 mls/hr Q24H IV 04/23/17 12:35 05/23/17 12:34 Acetaminophen (Tylenol Tab) 650 mg Q4H PRN PO 04/23/17 11:45 05/23/17 11:44 Sodium Chloride 250 ml @ 999 mls/hr Q16M PRN IV 04/23/17 12:35 05/23/17 12:34 Atropine Sulfate (Atropine Sulfate 0.1mg/ml Inj) 0.6 mg PRN PRN IV 04/23/17 11:45 05/23/17 11:44 Ondansetron HCl (Zofran Inj) 4 mg Q6H PRN IV 04/23/17 11:45 05/23/17 11:44 04/23/17 21:37 4 MG Insulin Aspart (novoLOG ASPART) SLIDING SCALE If C... ACHS SC 04/23/17 16:15 05/22/17 00:00 Impression (1) End-stage renal disease on hemodialysis (2) Chest pain (3) Elevated troponin (4) Diabetes mellitus Recommendations -- had hemodialysis yesterday as her regular schedule, currently electrolyte, volume status acceptable. -- as cardiac catheterization was negative she will probably get discharged today -- Protect AVF --next dialysis on Wednesday at her outpatient unit --Continue Betaxolol, Isosorbide, Hydralazine and Amlodipine
[2017-04-24] MEDS ORDERED: ALPR0.25 PO (11:46)
== END 2017-04-24 12:07 | disposition home or self-care (01) | DRG 286 ==
LOC: EDBD 16:31 → C.EDC 16:33 → C.EDINP 21:11 → ENRESERV 04-22 10:32 → C.2T 04-22 10:59 → OBSVTOIN 04-22 12:52
PROVIDERS: ADMIT Family Medicine; ATTEND Family Medicine
PROC: B2100ZZ Fluoroscopy of Single Coronary Artery using High Osmolar Contrast (ICD-10-PCS; principal; 2017-04-23 10:58)
DX: R07.89 Other chest pain (principal); N18.6 End stage renal disease; I12.0 Hypertensive chronic kidney disease with stage 5 chronic kidney disease or end stage renal disease; E11.22 Type 2 diabetes mellitus with diabetic chronic kidney disease; Z99.2 Dependence on renal dialysis; Z82.49 Family history of ischemic heart disease and other diseases of the circulatory system; Z79.82 Long term (current) use of aspirin

== ENCOUNTER 2022-01-26 12:20 | Inpatient (IN) ==
--- NOTE | 2022-01-26 12:56 | Emergency Department Note ---
Impression & Plan Hypoxia ADMIT ED Provider Note HPI: The patient is a 76-year-old female with history of asthma, end-stage renal disease on dialysis Wednesday, Wednesday, Wednesday, who presents the emergency department with a chief complaint of shortness of breath and cough that is been worsening since yesterday morning. On arrival here to the ED the patient was noted to have oxygen saturations at 86% on room air, she was placed on nasal cannula oxygen with good improvement. Patient has had some chest discomfort with coughing, denies any chest discomfort at rest, states that she does get some positional shortness of breath and is more comfortable when she is sitting upright. On my initial assessment the patient is on 4 L nasal cannula oxygen and saturating at 98%. She is noted to wear 2 L nasal cannula oxygen at night only at home. Patient does display some mild increased work of breathing on my initial evaluation but is otherwise stable. ROS: -Pulmonary: Shortness of breath, cough *10 point review systems was conducted and is otherwise negative unless stated above *Outpatient medications and allergy history reviewed PE: General: Alert HEENT: Normocephalic, trachea midline Eyes: Extraocular eye movement is intact, no scleral erythema Pulmonary: Diminished bilaterally with moderate expiratory wheezing Cardio: Regular rate and rhythm GI: Abdomen is soft, nontender : No suprapubic tenderness MSK: No evidence of trauma or malformation of the extremities, no edema, palpable thrill in left upper extremity AV fistula Skin: No evidence of rash Neuro: Alert, no focal deficits Psychiatric: Cooperative mortgage loan interviewer: - An order was placed for continuous cardiac monitoring - Patient was noted to be in sinus rhythm with a rate of 80 EKG: Rate: 84 Rhythm: Normal sinus rhythm Intervals: Within normal limits ST changes: No ST elevation Time: 1239 Interventions provided in ED: -DuoNeb breathing treatment, IV Solu-Medrol Medical Decision Making: Patient presented to the emergency department with mild respiratory distress, she was placed on nasal cannula oxygen with good improvement in her hypoxia. Venous blood gas shows a compensated pH, CT angiography of the chest was obtained given the patient's complaint of chest pain and does not show any evidence of pulmonary embolism, does show some alveolar fluid overload. Also noted is a known thyroid goiter that is causing some tracheal stenosis. Given the patient's lab work and imaging results I am more suspicious that her symptoms are secondary to fluid overload and bronchospasm I do not think this is playing a role in her acute symptoms. Patient is noted to have missed dialysis today (MWF dialysis) and came to the emergency department instead for evaluation. Potassium is within normal limits, creatinine is elevated greater than 8.0, BNP is elevated greater than 2000, patient was given a DuoNeb breathing treatment and IV steroids here in the ED and her wheezing did improve on my reassessment, she is stable on nasal cannula oxygen. Patient's viral panel does result pos itive for RSV which I suspect is playing a source in her bronchospasm and cough as well as her shortness of breath. EKG does not show any acute ischemic changes. High-sensitivity troponin is indeterminate, slightly elevated above upper limits of normal at 30.2 in the setting of end-stage renal disease. Patient denies any chest pain at rest and states she gets chest pain when she coughs. I have low suspicion for ACS. CT imaging of the chest does mention some progression of mass-effect and a known right-sided thyroid goiter. Patient has previously been evaluated for this by endocrinology, previous imaging did also show compression of the trachea, patient has been asymptomatic from this standpoint. She denies any sensation of dysphagia, denies any pressure on the right side of her neck, I feel that her shortness of breath is more likely related to bronchospasm and fluid overload and she is in need of dialysis. Previous endocrinology notes indicate that the patient would not be a surgical candidate for removal of this goiter and would recommend I131 therapy if any acute interventions were needed. On my reevaluation I did discuss this with the patient, she tells me that she does not feel that her symptoms are related to her goiter as she has been asymptomatic from the standpoint of having any dysphagia, pressure-like sensation, and she does not have any stridor here in the ED. I did discuss this finding on CT imaging with on-call otolaryngology, Dr. Ramos, who was in agreement at this time that given the patient's clinical presentation and previous work-up there would be no indication for any acute surgical intervention at this time. I discussed this with the on-call hospitalist for [facility], Dr. Edwards, who was in agreement to admit the patient to a telemetry bed for dialysis and further management of her hypoxia and bronchospasm. On-call nephrology was consulted in regards the patient's case, Dr. Schrader, and they will arrange for the patient to be dialyzed later this evening. Patient was in agreement to the above plan she was admitted in stable condition for further care. Diagnosis: 1. Hypoxia, acute 2. Dyspnea 3. RSV infection/viral URI with cough 4. Pulmonary edema, acute 5. Elevated high-sensitivity troponin level 6. Acute bronchospasm/wheezing 7. End-stage renal disease, on dialysis 8. Thyroid goiter Disposition: Admission De Rodriguez DO Emergency Medicine Past Med/Surg History Medical History Anemia Asthma, moderate persistent inhaler daily/prn, nebulizer prn AV fistula left arm Breast lesion Chronic anemia iron infusions Diabetes mellitus diet controlled End-stage renal disease on hemodialysis wed-wed-wed @ [facility] GERD (gastroesophageal reflux disease) Gout History of benign spinal cord tumor History of COVID-19 no symptoms, no hospitalization, no current issues Hyperlipidemia Hypertension On home oxygen therapy 2L via CPAP at night Sleep apnea CPAP with 2L oxygen Surgical History H/O partial thyroidectomy H/O: hysterectomy History of appendectomy History of back surgery History of cardiac cath 2yrs ago--normal, no stents History of cataract surgery History of cholecystectomy History of colonoscopy History of esophagogastroduodenoscopy (EGD) History of hysterectomy SANDRA BSO History of lumbar surgery History of oral surgery salivary gland surgery History of tooth extraction all teeth removed Hx of partial thyroidectomy S/P arteriovenous (AV) fistula creation Status post biopsy of kidney kidney disease Family History Daughter Cancer Breast Daughter Cancer Breast Daughter Hypertension Daughter Hypertension Father Diabetes Hypertension Mother Hypertension Brother Diabetes Brother Diabetes Sister Diabetes Sister Diabetes Sister Hypertension Sister Hypertension Other No family history of adverse response to anesthesia Social History Smoking Status: Never smoker Second Hand Exposure: No; Hx Alcohol Use: No Hx Substance Use: No Preferred Language: Telugu Communication Ability: Effective 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 Required: No Beliefs That Will Affect Care: None marital status: / Current Living Situation: Family Current Living Situation Comment: Lives with jimmy Feelteddy Safe at Home: Yes Assistive Devices: Cane, CPAP, Denture - Upper, Denture - Lower, Glasses, Oxygen - at Night, Walker and Wheelchair Allergies Allergies Allergy/AdvReac Type Severity Reaction Status Date / Time pollen extracts Allergy Mild sneezing, Verified 01/26/22 15:55 watery eyes No Known Drug Allergies Allergy Unknown Verified 01/26/22 15:55 Home Meds Home Medications Medication Instructions Recorded Confirmed atorvastatin 40 mg tablet 40 mg PO QAM 11/10/18 01/26/22 betaxolol 10 mg tablet 10 mg PO QAM #90 tabs 11/10/18 01/26/22 montelukast 10 mg tablet 10 mg PO HS 11/17/18 01/26/22 (Singulair) famotidine 20 mg tablet 20 mg PO AMHS 05/28/21 01/26/22 lidocaine-prilocaine 2.5 %-2.5 % See Rx Instructions topical 05/28/21 01/26/22 topical cream .COMPLEX nitroglycerin 0.4 mg sublingual 0.4 mg sublingual Q5M PRN Chest 05/28/21 01/26/22 tablet (Nitrostat) Pain pantoprazole 40 mg tablet,delayed 20 mg PO DAILYBB 05/28/21 01/26/22 release polyethylene glycol 3350 17 gram 17 g PO BID PRN Constipation 05/28/21 01/26/22 oral powder packet (Miralax) triamcinolone acetonide 0.025 % 1 applic topical BID PRN Rash 05/28/21 01/26/22 lotion fluticasone fur. 100 mcg-umeclid 1 inh inhalation QAM 10/14/21 01/26/22 62.5 mcg-vilant 25 mcg inhalat.powder (Trelegy Ellipta) albuterol sulfate 1.25 mg/3 mL 1.25 mg inhalation Q4H PRN Wheezing 01/26/22 01/26/22 solution for nebulization albuterol sulfate 90 mcg/actuation 2 puff inhalation Q6 PRN Wheezing 01/26/22 01/26/22 aerosol inhaler (Ventolin HFA) amlodipine 5 mg tablet 5 mg PO QAM 01/26/22 01/26/22 aspirin 81 mg tablet,delayed 81 mg PO QAM 01/26/22 01/26/22 release fluticasone propionate 50 2 spray intranasal QAM 01/26/22 01/26/22 mcg/actuation nasal spray,suspension isosorbide mononitrate 30 mg 30 mg PO QAM 01/26/22 01/26/22 tablet,extended release 24 hr ondansetron HCl 4 mg tablet 4 mg PO Q8 PRN Nausea 01/26/22 01/26/22 sevelamer carbonate 800 mg tablet 1,600 mg PO TIDM 01/26/22 01/26/22 vit B complx, C-iron 8 mg-folic 1 tab PO DAILY 01/26/22 01/26/22 acid 800 mcg-D3 1,000 unit-zinc tablet (ProRenal) Results & Data (ED) Vital Signs Vital Signs - 24 hr 01/26/22 12:23 01/26/22 12:35 01/26/22 12:37 Temperature 36.9 C Temperature Source Temporal Artery Scan Pulse Rate 86 Pulse Rate [Radial] Respiratory Rate 36 H Respiratory Effort / Characteristics Respiratory Depth Respiratory Pattern Blood Pressure 201/85 H Blood Pressure [Right Arm] Blood Pressure Mean 123 Blood Pressure Mean [Right Arm] Pulse Oximetry 86 L 86 L Oxygen Delivery Method Room Air Nasal Cannula Nasal Cannula Oxygen Flow Rate 4 Sepsis Recent Fever Within 48 Hours No Sepsis New/Unexplained Change in Mental Status N/A Sepsis Action Taken by Nursing No Action Required Oxygen Flow Rate - Titration 4 2 Pulse Oximetry Post Tiitration 98 01/26/22 13:13 01/26/22 13:13 01/26/22 14:30 Temperature Temperature Source Pulse Rate 86 Pulse Rate [Radial] 82 Respiratory Rate 36 H 18 Respiratory Effort / Characteristics Non-Labored Respiratory Depth Normal Respiratory Pattern Regular Blood Pressure Blood Pressure [Right Arm] 166/86 H Blood Pressure Mean Blood Pressure Mean [Right Arm] 112 Pulse Oximetry 97 98 Oxygen Delivery Method Nasal Cannula Nasal Cannula Oxygen Flow Rate 4 Sepsis Recent Fever Within 48 Hours Sepsis New/Unexplained Change in Mental Status Sepsis Action Taken by Nursing Oxygen Flow Rate - Titration 4 Pulse Oximetry Post Tiitration 01/26/22 16:00 Temperature Temperature Source Pulse Rate Pulse Rate [Radial] 75 Respiratory Rate 20 Respiratory Effort / Characteristics Respiratory Depth Respiratory Pattern Blood Pressure Blood Pressure [Right Arm] 110/63 Blood Pressure Mean Blood Pressure Mean [Right Arm] 78 Pulse Oximetry 99 Oxygen Delivery Method Nasal Cannula Oxygen Flow Rate 4 Sepsis Recent Fever Within 48 Hours Sepsis New/Unexplained Change in Mental Status Sepsis Action Taken by Nursing Oxygen Flow Rate - Titration Pulse Oximetry Post Tiitration Laboratory Data Result diagrams: 01/26/22 12:50 01/26/22 12:50 Lab Results 01/26/22 01/26/22 01/26/22 Range/Units 12:35 12:50 12:50 WBC 9.05 (4.8-10.8) K/ul RBC 3.67 L (3.93-5.22) M/uL Hgb 9.6 L (12.0-16.0) g/dl Hct 30.9 L (34.1-44.9) % MCV 84.2 (80.0-100.0) fL MCH 26.2 (25.0-34.0) pg MCHC 31.1 L (32.0-36.0) g/dL RDW Std Deviation 44.2 (36.4-46.3) fL RDW Coeff of Luis 14.3 (11.5-14.5) % Plt Count 171 (130-400) K/uL MPV 10.3 (9.4-12.3) fL Immature Gran % (Auto) 0.4 % Neut % (Auto) 73.5 % Lymph % (Auto) 13.6 % Darke % (Auto) 6.4 % Eos % (Auto) 5.5 % Baso % (Auto) 0.6 % Neut # (Auto) 6.65 H (1.4-6.5) K/uL Lymph # (Auto) 1.23 (1.2-3.4) K/uL Darke # (Auto) 0.58 (0.24-0.82) K/uL Eos # (Auto) 0.50 (0-0.50) K/uL Baso # (Auto) 0.05 (0-0.2) K/uL Immature Gran # (Auto) 0.04 H (0.00-0.02) K/uL VBG pH (7.36-7.41) VBG pCO2 (38-50) mmHg VBG pO2 mmHg VBG HCO3 mmol/L VBG O2 Saturation % VBG Base Excess mEq/L Sodium 141 (136-145) mmol/L Potassium 4.9 (3.5-5.1) mmol/L Chloride 99 (98-107) mmol/L Carbon Dioxide 32 (21-32) mmol/L Anion Gap 10 (3-11) BUN 45 H (6-23) mg/dl Creatinine 8.36 H* (0.6-1.2) mg/dl Est Cr Clr Drug Dosing Not Reportable Est GFR ( Amer) 4.9 ml/min Est GFR (Non-Af Amer) 4.2 ml/min BUN/Creatinine Ratio 5.4 L (10-20) Glucose 100 H (70-99(Fasting)) mg/dl Calcium 9.2 (8.5-10.1) mg/dl Troponin I High Sens (0-14) pg/ml B-Natriuretic Peptide (0-100) pg/ml SARS-CoV-2 (PCR) NEGATIVE (Negative) Influenza Type A (PCR) Negative (Neg) Influenza Type B (PCR) Negative (Neg) RSV (RT-PCR) Positive A* (Neg) 01/26/22 01/26/22 01/26/22 Range/Units 12:50 13:29 13:29 WBC (4.8-10.8) K/ul RBC (3.93-5.22) M/uL Hgb (12.0-16.0) g/dl Hct (34.1-44.9) % MCV (80.0-100.0) fL MCH (25.0-34.0) pg MCHC (32.0-36.0) g/dL RDW Std Deviation (36.4-46.3) fL RDW Coeff of Luis (11.5-14.5) % Plt Count (130-400) K/uL MPV (9.4-12.3) fL Immature Gran % (Auto) % Neut % (Auto) % Lymph % (Auto) % Darke % (Auto) % Eos % (Auto) % Baso % (Auto) % Neut # (Auto) (1.4-6.5) K/uL Lymph # (Auto) (1.2-3.4) K/uL Darke # (Auto) (0.24-0.82) K/uL Eos # (Auto) (0-0.50) K/uL Baso # (Auto) (0-0.2) K/uL Immature Gran # (Auto) (0.00-0.02) K/uL VBG pH 7.37 (7.36-7.41) VBG pCO2 61 H (38-50) mmHg VBG pO2 52 mmHg VBG HCO3 35 mmol/L VBG O2 Saturation 80.7 % VBG Base Excess 7.8 mEq/L Sodium (136-145) mmol/L Potassium (3.5-5.1) mmol/L Chloride (98-107) mmol/L Carbon Dioxide (21-32) mmol/L Anion Gap (3-11) BUN (6-23) mg/dl Creatinine (0.6-1.2) mg/dl Est Cr Clr Drug Dosing Est GFR ( Amer) ml/min Est GFR (Non-Af Amer) ml/min BUN/Creatinine Ratio (10-20) Glucose (70-99(Fasting)) mg/dl Calcium (8.5-10.1) mg/dl Troponin I High Sens 30.2 H (0-14) pg/ml B-Natriuretic Peptide 2506 H (0-100) pg/ml SARS-CoV-2 (PCR) (Negative) Influenza Type A (PCR) (Neg) Influenza Type B (PCR) (Neg) RSV (RT-PCR) (Neg) Administered Medications Discontinued Medications Albuterol (Albut/Ipratrop 3mg/0.5mg Neb 3 Ml Vial) 3 ml NEB NOW STA; Protocol Stop: 01/26/22 13:55 Last Admin: 01/26/22 14:12 Dose: 3 ml Documented By: DONALD Ioversol (Optiray 320 500ml) 120 ml IV ONCE ONE Stop: 01/26/22 13:59 Last Admin: 01/26/22 13:59 Dose: 120 ml Documented By: NEPTALI Methylprednisolone (Methylprednisolone 125 Mg/2 Ml Vial) 80 mg IV NOW STA Stop: 01/26/22 13:55 Last Admin: 01/26/22 14:12 Dose: 80 mg Documented By: DONALD Imaging Data Radiologist's Impression: Chest X-Ray 01/26/22 12:31 XR chest 1V portable CLINICAL HISTORY: Respiratory distress. COMPARISON STUDY: Chest CT October 10, 2020. FINDINGS: There is mild elevation of the right hemidiaphragm. No pneumothorax is present. There is no definite pleural effusion. Interstitial thickening is noted. Prominence of both kamron, greater on the right, is noted. In part, right hilar/paratracheal prominence is due to the suspected multinodular goiter. There is a hiatal hernia. Cardiomediastinal silhouette is stable. IMPRESSION: 1. Interstitial thickening suggestive of pulmonary edema. An infectious process could appear similar but is considered less likely. 2. Bilateral hilar enlargement, greater on the right, as described above. This is likely due to a combination of pulmonary vessels and the thyroid goiter with mediastinal extension. ACT 112: Negative or not required by law. Electronically signed by: Bright Duran M.D. 01/26/2022 1:31 PM Chest CTA 01/26/22 12:53 CHEST CTA for PULMONARY ARTERIES CT DOSE: 498.61 mGycm HISTORY: Cough. Shortness of breath. TECHNIQUE: Multiaxial CT images of the chest were performed following the intravenous administration of contrast to evaluate the pulmonary arteries. M aximal intensity projection images were also obtained. A dose lowering technique was utilized adhering to the principles of ALARA. COMPARISON STUDY: Chest CT 10/10/2020. FINDINGS: There is chronic elevation of the right hemidiaphragm. Retrograde op acification of the hepatic veins is noted. The visualized spleen and adrenal glands are unremarkable. There is a large hiatus hernia, unchanged. Otherwise, normal caliber esophagus. Decrease in size in the multinodular thyroid goiter. However, there is progressive mass effect along the proximal trachea best seen on image 252 which demonstrates approximately 50% stenosis. Redemonstration of the solid lymphadenopathy. This has slightly progressed. Dominant right paratracheal lymph node measures 16 mm, previously measuring 11 mm. No significant hilar lymphadenopathy. There are trace bilateral pleural effusions. No significant pericardial effusion. The heart remains enlarged. There is a 7 mm right inferior breast nodule on image 154. This was likely present on the prior study. No suspicious lytic or blastic osseous lesions. No pneumothorax. Diffuse bronchial wall thickening with partial opacification of the right lower lobe bronchi. Mild interlobular septal thickening suggestive of mild pulmonary edema. Groundglass densities at the lung bases favor dependent change. There are additional patchy airspace opacities within the right upper lobe on image 174 and within the right lower lobe on image 145. This could represent a pneumonia or a component of the pulmonary edema. No evidence for an aortic dissection. Respiratory motion results in suboptimal evaluation of the segmental and subs egmental pulmonary arteries. Questionable filling defect within the left upper lobe subsegmental pulmonary artery on image 187 is likely due to the motion artifact. Otherwise, no filling defects within the arteries to suggest a pulmonary embolus. IMPRESSION: 1. No definite evidence for a pulmonary embolus with limitations as described above. 2. Cardiomegaly with mild pulmonary edema and trace bilateral pleural effusions. 3. Patchy airspace opacities within the right upper lobe and right lower lobe. This could be due to a pneumonia or an alveolar component of the pulmonary edema. 4. Decrease in size in the right thyroid goiter. However, there is progressive mass effect along the proximal trachea which now demonstrates 50% stenosis. 5. Progression of the mediastinal lymphadenopathy. This could be reactive. Consider six-month chest CT follow-up to ensure stability/resolution. 6. Diffuse bronchial wall thickening with partial opacification of the right lower lobe bronchi. 7. Additional findings as described above. ACT 112: Positive. There are findings on this exam that require communication between the performing entity and the patient following Patient Test Result Information Act ([place] Act 112) guidelines. Electronically signed by: Guilherme Rome M.D. 01/26/2022 2:39 PM Discharge Plan Visit Data Chief Complaint: Shortness of Breath/Dyspnea Stated Complaint: COUGH, SHORTNESS OF BREATH ED Provider: De Rodriguez Discharge Problem: Hypoxia Forms Stand Alone Forms: [facility] Prescriptions Prescriptions: No Action atorvastatin 40 mg tablet 40 mg PO QAM betaxolol 10 mg tablet 10 mg PO QAM Qty: 90 montelukast [Singulair] 10 mg tablet 10 mg PO HS pantoprazole 40 mg tablet,delayed release (DR/EC) 20 mg PO DAILYBB lidocaine-prilocaine 2.5-2.5 % cream See Rx Instructions topical .COMPLEX Rx Instructions: apply small amount to access site (AVF) 1 to 2 hours before dialysis. cover with occlusive dressing (SARAN WRAP) polyethylene glycol 3350 [Miralax] 17 gram powder in packet 17 g PO BID PRN (Reason: Constipation) Rx Instructions: pt uses prn nitroglycerin [Nitrostat] 0.4 mg tablet, sublingual 0.4 mg sublingual Q5M PRN (Reason: Chest Pain) Rx Instructions: do not exceed 3 doses per episode famotidine 20 mg tablet 20 mg PO AMHS triamcinolone acetonide 0.025 % lotion 1 applic topical BID PRN (Reason: Rash) Trelegy Ellipta 100-62.5-25 mcg Blister With Device 1 inh INHALATION QAM Rx Instructions: rinse after use aspirin [Aspirin Low-Strength] 81 mg Tablet,Delayed Release (Dr/Ec) 81 mg PO QAM isosorbide mononitrate 30 mg tablet extended release 24 hr 30 mg PO QAM fluticasone propionate 50 mcg/actuation spray,suspension 2 spray INTRANASAL QAM albuterol sulfate 1.25 mg/3 mL Solution For Nebulization 1.25 mg INHALATION Q4H PRN (Reason: Wheezing) albuterol sulfate [Ventolin HFA] 90 mcg/actuation HFA aerosol inhaler 2 puff INHALATION Q6 PRN (Reason: Wheezing) sevelamer carbonate 800 mg tablet 1,600 mg PO TIDM ondansetron HCl 4 mg tablet 4 mg PO Q8 PRN (Reason: Nausea) Rx Instructions: TAKE ONE TABLET BY MOUTH TWICE DAILY NEEDED FOR NAUSEA / VOMITING ProRenal 8 mg iron-800 mcg-1,000 unit tablet 1 tab PO DAILY amlodipine 5 mg tablet 5 mg PO QAM Referrals Referrals: Alberto Yuen MD [Primary Care Provider] -
[2022-01-26 13:06] LABS: Basophils # (auto) 0.05 K/uL (0-0.2); Basophils % (auto) 0.6 %; Eosinophils % (auto) 5.5 %; Hematocrit (blood only) 30.9 % (34.1-44.9); Hemoglobin 9.6 g/dl (12.0-16.0); Immature Granulocytes # (auto) 0.04 K/uL (0.00-0.02); Immature Granulocytes % (auto) 0.4 %; Lymphocytes # (auto) 1.23 K/uL (1.2-3.4); Lymphocytes % (auto) 13.6 %; Mean Corpuscular Hemoglobin 26.2 pg (25.0-34.0); Mean Corpuscular Hgb Conc 31.1 g/dL (32.0-36.0); Mean Corpuscular Volume 84.2 fL (80.0-100.0); Mean Platelet Volume 10.3 fL (9.4-12.3); Monocytes # (auto) 0.58 K/uL (0.24-0.82); Monocytes % (auto) 6.4 %; Neutrophils # (auto) 6.65 K/uL (1.4-6.5); Neutrophils % (auto) 73.5 %; Platelet Count 171 K/uL (130-400); RDW Coefficient of Variation 14.3 % (11.5-14.5); RDW Standard Deviation 44.2 fL (36.4-46.3); Red Blood Count 3.67 M/uL (3.93-5.22); White Blood Count 9.05 K/ul (4.8-10.8)
--- NOTE | 2022-01-26 13:33 | XRay Report ---
XR chest 1V portable CLINICAL HISTORY: Respiratory distress. COMPARISON STUDY: Chest CT October 10, 2020. FINDINGS: There is mild elevation of the right hemidiaphragm. No pneumothorax is present. There is no definite pleural effusion. Interstitial thickening is noted. Prominence of both kamron, greater on the right, is noted. In part, right hilar/paratracheal prominence is due to the suspected multinodular g oiter. There is a hiatal hernia. Cardiomediastinal silhouette is stable. IMPRESSION: 1. Interstitial thickening suggestive of pulmonary edema. An infectious process could appear similar but is considered less likely. 2. Bilateral hilar enlargement, greater on the right, as described above. This is likely due to a com bination of pulmonary vessels and the thyroid goiter with mediastinal extension. ACT 112: Negative or not required by law. Electronically signed by: Bright Duran M.D. 01/26/2022 1:31 PM
[2022-01-26 13:40] LABS: Base Excess VBG 7.8 mEq/L; HCO3 VBG 35 mmol/L; Oxygen Saturation VBG 80.7 %; PCO2 VBG 61 mmHg (38-50); PO2 VBG 52 mmHg; pH VBG 7.37 (7.36-7.41)
[2022-01-26 13:42] LABS: Influenza A virus by PCR Negative (Neg); Influenza B virus by PCR Negative (Neg); SARS CoV2 RNA(COVID-19) Ceph NEGATIVE (Negative)
[2022-01-26 13:49] LABS: RSV by PCR Positive (Neg)
[2022-01-26 13:53] LABS: Anion Gap 10 (3-11); BUN Creatinine Ratio 5.4 (10-20); Blood Urea Nitrogen 45 mg/dl (6-23); Calcium 9.2 mg/dl (8.5-10.1); Carbon Dioxide 32 mmol/L (21-32); Chloride 99 mmol/L (98-107); Est GFR (African American) 4.9 ml/min; Est GFR (Non-African American) 4.2 ml/min; Glucose 100 mg/dl (70-99(Fasting)); Potassium 4.9 mmol/L (3.5-5.1); Sodium 141 mmol/L (136-145)
[2022-01-26] MEDS ORDERED: methylPREDNISolone 125 MG/2 ML VIAL IV STA (13:54)
[2022-01-26] MEDS ORDERED: ALBUT/IPRATROP 3MG/0.5MG NEB 3 ML VIAL NEB STA (13:54)
[2022-01-26] MEDS ORDERED: OPTIRAY 320 500ml IV ONE (13:58)
--- NOTE | 2022-01-26 14:40 | CT Scan Report ---
CHEST CTA for PULMONARY ARTERIES CT DOSE: 498.61 mGycm HISTORY: Cough. Shortness of breath. TECHNIQUE: Multiaxial CT images of the chest were performed following the intravenous administration of contrast to evaluate the pulmonary arteries. Maximal intensity projection images were also obtaine d. A dose lowering technique was utilized adhering to the principles of ALARA. COMPARISON STUDY: Chest CT 10/10/2020. FINDINGS: There is chronic elevation of the right hemidiaphragm. Retrograde opacification of the hepa tic veins is noted. The visualized spleen and adrenal glands are unremarkable. There is a large hiatu s hernia, unchanged. Otherwise, normal caliber esophagus. Decrease in size in the multinodular thyroi d goiter. However, there is progressive mass effect along the proximal trachea best seen on image 252 which demonstrates approximately 50% stenosis. Redemonstration of the solid lymphadenopathy. This crisostomo s slightly progressed. Dominant right paratracheal lymph node measures 16 mm, previously measuring 11 mm. No significant hilar lymphadenopathy. There are trace bilateral pleural effusions. No significan t pericardial effusion. The heart remains enlarged. There is a 7 mm right inferior breast nodule on i mage 154. This was likely present on the prior study. No suspicious lytic or blastic osseous lesions. No pneumothorax. Diffuse bronchial wall thickening with partial opacification of the right lower lob e bronchi. Mild interlobular septal thickening suggestive of mild pulmonary edema. Groundglass densit ies at the lung bases favor dependent change. There are additional patchy airspace opacities within t he right upper lobe on image 174 and within the right lower lobe on image 145. This could represent a pneumonia or a component of the pulmonary edema. No evidence for an aortic dissection. Respiratory m otion results in suboptimal evaluation of the segmental and subsegmental pulmonary arteries. Question able filling defect within the left upper lobe subsegmental pulmonary artery on image 187 is likely d ue to the motion artifact. Otherwise, no filling defects within the arteries to suggest a pulmonary e mbolus. IMPRESSION: 1. No definite evidence for a pulmonary embolus with limitations as described above. 2. Cardiomegaly with mild pulmonary edema and trace bilateral pleural effusions. 3. Patchy airspace opacities within the right upper lobe and right lower lobe. This could be due to a pneumonia or an alveolar component of the pulmonary edema. 4. Decrease in size in the right thyroid goiter. However, there is progressive mass effect along the proximal trachea which now demonstrates 50% stenosis. 5. Progression of the mediastinal lymphadenopathy. This could be reactive. Consider six-month chest C T follow-up to ensure stability/resolution. 6. Diffuse bronchial wall thickening with partial opacification of the right lower lobe bronchi. 7. Additional findings as described above. ACT 112: Positive. There are findings on this exam that require communication between the performing entity and the patient following Patient Test Result Information Act ([place] Act 112) guidelines. Electronically signed by: Guilherme Rome M.D. 01/26/2022 2:39 PM
[2022-01-26] MEDS ORDERED: HEPARIN SOD (PORCINE) 1000 UNIT/ML IV ONE (15:52)
[2022-01-26] MEDS ORDERED: SODIUM CHLORIDE 0.9% 1000ML 1,000 ML IV PRN (15:52)
--- NOTE | 2022-01-26 15:52 | Nephrology Consultation ---
Date of Consultation January 26, 2022 Assessment & Plan (1) End-stage renal disease on hemodialysis: * Will provide emergency HD this evening. I have spoken w/ HD RN environmental science program director. He will provide 3 hr treatment and attempt 3 L UF * Monitor volume status, PRP (2) Congestive cardiac failure: * BNP elevated. CXR films reviewed. Will attempt 3 L UF w/ HD today (3) Anemia: * Will provide FAZAL w/ HD today (4) RSV (respiratory syncytial virus pneumonia): * Supportive care History of Present Illness Reason for Consultation: ESKD, CHF Requesting Physician: Dr. Rodriguez History of Present Illness Ms. Ward is a 76 year old female who is seen at the request of Dr. Rodriguez for ESKD on HD, CHF. Medical records in the EMR were reviewed today and are summarized as follows: Ms. 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 She has been on IHD since 03/11 and currently dialyzes MWF at [facility] under my care (3.25 hr, 2K 2Ca, F-180NR, EDW 70 kg). Over the last several months Ms. Ward has traveled to [place] and [facility] to visit family. She has spent the last 6 weeks in [place] on her return to [place], [place]. Today while preparing for dialysis Ms. Ward reported a recurrent cough and progressive dyspnea. Instead of attending dialysis she presented to [facility] for evaluation where she was found to be RSV +, BNP was elevated and CXR revealed evidence of CHF. SaO2 was 98% on 4 L/min NC. Emergency dialysis has been requested to help alleviate CHF. 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, AVF created 04/10, cardiac cath 05/09 negative for ASCVD, thyroid cyst w/ tracheal deviation, complex cyst of R kidney, AODM, HTN, LAUREN on nocturnal CPAP, hypercholesterolemia, gout, osteoporosis, chronic low back pain Allergies Allergy/AdvReac Type Severity Reaction Status Date / Time pollen extracts Allergy Mild sneezing, Verified 01/26/22 15:55 watery eyes No Known Drug Allergies Allergy Unknown Verified 01/26/22 15:55 Home Medications Medication Instructions Recorded Confirmed Type atorvastatin 40 mg tablet 40 mg PO QAM 11/10/18 01/26/22 History betaxolol 10 mg tablet 10 mg PO QAM #90 tabs 11/10/18 01/26/22 History montelukast 10 mg tablet 10 mg PO HS 11/17/18 01/26/22 History (Singulair) famotidine 20 mg tablet 20 mg PO AMHS 05/28/21 01/26/22 History lidocaine-prilocaine 2.5 %-2.5 % See Rx Instructions topical 05/28/21 01/26/22 History topical cream .COMPLEX nitroglycerin 0.4 mg sublingual 0.4 mg sublingual Q5M PRN Chest 05/28/21 01/26/22 History tablet (Nitrostat) Pain pantoprazole 40 mg tablet,delayed 20 mg PO DAILYBB 05/28/21 01/26/22 History release polyethylene glycol 3350 17 gram 17 g PO BID PRN Constipation 05/28/21 01/26/22 History oral powder packet (Miralax) triamcinolone acetonide 0.025 % 1 applic topical BID PRN Rash 05/28/21 01/26/22 History lotion fluticasone fur. 100 mcg-umeclid 1 inh inhalation QAM 10/14/21 01/26/22 History 62.5 mcg-vilant 25 mcg inhalat.powder (Trelegy Ellipta) albuterol sulfate 1.25 mg/3 mL 1.25 mg inhalation Q4H PRN Wheezing 01/26/22 01/26/22 History solution for nebulization albuterol sulfate 90 mcg/actuation 2 puff inhalation Q6 PRN Wheezing 01/26/22 01/26/22 History aerosol inhaler (Ventolin HFA) amlodipine 5 mg tablet 5 mg PO QAM 01/26/22 01/26/22 History aspirin 81 mg tablet,delayed 81 mg PO QAM 01/26/22 01/26/22 History release fluticasone propionate 50 2 spray intranasal QAM 01/26/22 01/26/22 History mcg/actuation nasal spray,suspension isosorbide mononitrate 30 mg 30 mg PO QAM 01/26/22 01/26/22 History tablet,extended release 24 hr ondansetron HCl 4 mg tablet 4 mg PO Q8 PRN Nausea 01/26/22 01/26/22 History sevelamer carbonate 800 mg tablet 1,600 mg PO TIDM 01/26/22 01/26/22 History vit B complx, C-iron 8 mg-folic 1 tab PO DAILY 01/26/22 01/26/22 History acid 800 mcg-D3 1,000 unit-zinc tablet (ProRenal) Patient History Medical History Anemia Asthma, moderate persistent inhaler daily/prn, nebulizer prn AV fistula left arm Breast lesion Chronic anemia iron infusions Diabetes mellitus diet controlled End-stage renal disease on hemodialysis wed- @ [facility] GERD (gastroesophageal reflux disease) Gout History of benign spinal cord tumor History of COVID-19 no symptoms, no hospitalization, no current issues Hyperlipidemia Hypertension On home oxygen therapy 2L via CPAP at night Sleep apnea CPAP with 2L oxygen Surgical History H/O partial thyroidectomy H/O: hysterectomy History of appendectomy History of back surgery History of cardiac cath 2yrs ago--normal, no stents History of cataract surgery History of cholecystectomy History of colonoscopy History of esophagogastroduodenoscopy (EGD) History of hysterectomy SANDRA BSO History of lumbar surgery History of oral surgery salivary gland surgery History of tooth extraction all teeth removed Hx of partial thyroidectomy S/P arteriovenous (AV) fistula creation Status post biopsy of kidney kidney disease Family History Daughter Cancer Breast Daughter Cancer Breast Daughter Hypertension Daughter Hypertension Father Diabetes Hypertension Mother Hypertension Brother Diabetes Brother Diabetes Sister Diabetes Sister Diabetes Sister Hypertension Sister Hypertension Other No family history of adverse response to anesthesia Social History Smoking Status: Never smoker Second Hand Exposure: No; Hx Alcohol Use: No Hx Substance Use: No Preferred Language: Malay Communication Ability: Effective Frit Mixer And Burner Required: No Beliefs That Will Affect Care: None marital status: / Current Living Situation: Family Current Living Situation Comment: Lives with floydugher Feels Safe at Home: Yes Assistive Devices: Cane, CPAP, Denture - Upper, Denture - Lower, Glasses, Oxygen - at Night, Walker and Wheelchair Review of Systems Constitutional: + fatigue; no fever Eyes: no problem reported Ear, Nose, Mouth, Throat: no problem reported Respiratory: + cough, + dyspnea and + wheezing Cardiovascular: no chest pain Gastrointestinal: no abdominal pain Physical Exam Constitutional: + frail appearing Eyes: PERRL, conjunctivae normal, anicteric sclerae ENMT: external ear and nose normal, oropharynx normal Neck: Thyroid: + thyromegaly Respiratory: Auscultation: + rales and + wheezes Cardiovascular: Rate/Rhythm: regular rate and regular rhythm Gastrointestinal (Abdomen): normal bowel sounds, soft, nontender, no hepatosplenomegaly Neurologic: Speech / Cognition: normal cognition Results & Data ([facility]) Vital Signs (Past 12 Hours) Vital Signs Temp Pulse Pulse Resp BP BP Pulse Ox 01/26/22 14:30 82 18 166/86 H 98 01/26/22 13:13 86 36 H 97 01/26/22 13:13 01/26/22 12:37 01/26/22 12:35 86 L 01/26/22 12:23 36.9 C 86 36 H 201/85 H 86 L O2 Del Method O2 Flow Rate 01/26/22 14:30 01/26/22 13:13 Nasal Cannula 4 01/26/22 13:13 Nasal Cannula 01/26/22 12:37 Nasal Cannula 01/26/22 12:35 Nasal Cannula 4 01/26/22 12:23 Room Air Laboratory Results Laboratory Results WBC 9.05 K/ul (4.8-10.8) 01/26/22 12:50 RBC 3.67 M/uL (3.93-5.22) L 01/26/22 12:50 Hgb 9.6 g/dl (12.0-16.0) L 01/26/22 12:50 Hct 30.9 % (34.1-44.9) L 01/26/22 12:50 MCV 84.2 fL (80.0-100.0) 01/26/22 12:50 MCH 26.2 pg (25.0-34.0) 01/26/22 12:50 MCHC 31.1 g/dL (32.0-36.0) L 01/26/22 12:50 RDW Std Deviation 44.2 fL (36.4-46.3) 01/26/22 12:50 RDW Coeff of Luis 14.3 % (11.5-14.5) 01/26/22 12:50 Plt Count 171 K/uL (130-400) 01/26/22 12:50 MPV 10.3 fL (9.4-12.3) 01/26/22 12:50 Immature Gran % (Auto) 0.4 % 01/26/22 12:50 Neut % (Auto) 73.5 % 01/26/22 12:50 Lymph % (Auto) 13.6 % 01/26/22 12:50 Platte % (Auto) 6.4 % 01/26/22 12:50 Eos % (Auto) 5.5 % 01/26/22 12:50 Baso % (Auto) 0.6 % 01/26/22 12:50 Neut # (Auto) 6.65 K/uL (1.4-6.5) H 01/26/22 12:50 Lymph # (Auto) 1.23 K/uL (1.2-3.4) 01/26/22 12:50 Platte # (Auto) 0.58 K/uL (0.24-0.82) 01/26/22 12:50 Eos # (Auto) 0.50 K/uL (0-0.50) 01/26/22 12:50 Baso # (Auto) 0.05 K/uL (0-0.2) 01/26/22 12:50 Immature Gran # (Auto) 0.04 K/uL (0.00-0.02) H 01/26/22 12:50 VBG pH 7.37 (7.36-7.41) 01/26/22 13:29 VBG pCO2 61 mmHg (38-50) H 01/26/22 13:29 VBG pO2 52 mmHg 01/26/22 13:29 VBG HCO3 35 mmol/L 01/26/22 13:29 VBG O2 Saturation 80.7 % 01/26/22 13:29 VBG Base Excess 7.8 mEq/L 01/26/22 13:29 Sodium 141 mmol/L (136-145) 01/26/22 12:50 Potassium 4.9 mmol/L (3.5-5.1) 01/26/22 12:50 Chloride 99 mmol/L (98-107) 01/26/22 12:50 Carbon Dioxide 32 mmol/L (21-32) 01/26/22 12:50 Anion Gap 10 (3-11) 01/26/22 12:50 BUN 45 mg/dl (6-23) H 01/26/22 12:50 Creatinine 8.36 mg/dl (0.6-1.2) H* 01/26/22 12:50 Est Cr Clr Drug Dosing Not Reportable 01/26/22 12:50 Est GFR ( Amer) 4.9 ml/min 01/26/22 12:50 Est GFR (Non-Af Amer) 4.2 ml/min 01/26/22 12:50 BUN/Creatinine Ratio 5.4 (10-20) L 01/26/22 12:50 Glucose 100 mg/dl (70-99(Fasting)) H 01/26/22 12:50 Calcium 9.2 mg/dl (8.5-10.1) 01/26/22 12:50 B-Natriuretic Peptide 2506 pg/ml (0-100) H 01/26/22 13:29 SARS-CoV-2 (PCR) NEGATIVE (Negative) 01/26/22 12:35 Influenza Type A (PCR) Negative (Neg) 01/26/22 12:35 Influenza Type B (PCR) Negative (Neg) 01/26/22 12:35 RSV (RT-PCR) Positive (Neg) A* 01/26/22 12:35 Impressions Chest X-Ray 01/26/22 12:31 XR chest 1V portable CLINICAL HISTORY: Respiratory distress. COMPARISON STUDY: Chest CT October 10, 2020. FINDINGS: There is mild elevation of the right hemidiaphragm. No pneumothorax is present. There is no definite pleural effusion. Interstitial thickening is noted. Prominence of both kamron, greater on the right, is noted. In part, right hilar/paratracheal prominence is due to the suspected multinodular goiter. There is a hiatal hernia. Cardiomediastinal silhouette is stable. IMPRESSION: 1. Interstitial thickening suggestive of pulmonary edema. An infectious process could appear similar but is considered less likely. 2. Bilateral hilar enlargement, greater on the right, as described above. This is likely due to a combination of pulmonary vessels and the thyroid goiter with mediastinal extension. ACT 112: Negative or not required by law. Electronically signed by: Bright Duran M.D. 01/26/2022 1:31 PM Chest CTA 01/26/22 12:53 CHEST CTA for PULMONARY ARTERIES CT DOSE: 498.61 mGycm HISTORY: Cough. Shortness of breath. TECHNIQUE: Multiaxial CT images of the chest were performed following the intravenous administration of contrast to evaluate the pulmonary arteries. Maximal intensity projection images were also obtained. A dose lowering technique was utilized adhering to the principles of ALARA. COMPARISON STUDY: Chest CT 10/10/2020. FINDINGS: There is chronic elevation of the right hemidiaphragm. Retrograde opacification of the hepatic veins is noted. The visualized spleen and adrenal glands are unremarkable. There is a large hiatus hernia, unchanged. Otherwise, normal caliber esophagus. Decrease in size in the multinodular thyroid goiter. However, there is progressive mass effect along the proximal trachea best seen on image 252 which demonstrates approximately 50% stenosis. Redemonstration of the solid lymphadenopathy. This has slightly progressed. Dominant right paratracheal lymph node measures 16 mm, previously measuring 11 mm. No significant hilar lymphadenopathy. There are trace bilateral pleural effusions. No significant pericardial effusion. The heart remains enlarged. There is a 7 mm right inferior breast nodule on image 154. This was likely present on the prior study. No suspicious lytic or blastic osseous lesions. No pneumothorax. Diffuse bronchial wall thickening with partial opacification of the right lower lobe bronchi. Mild interlobular septal thickening suggestive of mild pulmonary edema. Groundglass densities at the lung bases favor dependent change. There are additional patchy airspace opacities within the right upper lobe on image 174 and within the right lower lobe on image 145. This could represent a pneumonia or a component of the pulmonary edema. No evidence for an aortic dissection. Respiratory motion results in suboptimal evaluation of the segmental and subsegmental pulmonary arteries. Questionable filling defect within the left upper lobe subsegmental pulmonary artery on image 187 is likely due to the motion artifact. Otherwise, no filling defects within the arteries to suggest a pulmonary embolus. IMPRESSION: 1. No definite evidence for a pulmonary embolus with limitations as described above. 2. Cardiomegaly with mild pulmonary edema and trace bilateral pleural effusions. 3. Patchy airspace opacities within the right upper lobe and right lower lobe. This could be due to a pneumonia or an alveolar component of the pulmonary edema. 4. Decrease in size in the right thyroid goiter. However, there is progressive mass effect along the proximal trachea which now demonstrates 50% stenosis. 5. Progression of the mediastinal lymphadenopathy. This could be reactive. Consider six-month chest CT follow-up to ensure stability/resolution. 6. Diffuse bronchial wall thickening with partial opacification of the right lower lobe bronchi. 7. Additional findings as described above. ACT 112: Positive. There are findings on this exam that require communication between the performing entity and the patient following Patient Test Result Information Act ([place] Act 112) guidelines. Electronically signed by: Guilherme Rome M.D. 01/26/2022 2:39 PM PG Care Time/CCT Total # of Minutes Spent Total Time Spent with Patient: Total time spent is greater than 50% in coordination of care (as documented) at patient's floor/unit and/or counseling patient: Coding Level of Care Code 38597 Inpt Consult Level 5 Diagnoses End-stage renal disease on hemodialysis N18.6; Z99.2 Congestive cardiac failure I50.9 Anemia D64.9 RSV (respiratory syncytial virus pneumonia) J12.1
--- NOTE | 2022-01-26 16:12 | History & Physical Report ---
Date of Service January 26, 2022 Assessment & Plan (1) RSV (respiratory syncytial virus pneumonia): Plan: Acute on chronic Respiratory failure with hypoxia: Multifactorial: Volume overload, asthma exacerbation, RSV infection, chronic tracheal stenosis Suspected multifocal pneumonia --CTA:1. No definite evidence for a pulmonary embolus with limitations as described above. Cardiomegaly with mild pulmonary edema and trace bilateral pleural effusions. Patchy airspace opacities within the right upper lobe and right lower lobe. This could be due to a pneumonia or an alveolar component of the pulmonary edema. Decrease in size in the right thyroid goiter. However, there is progressive mass effect along the proximal trachea which now demonstrates 50% stenosis. Progression of the mediastinal lymphadenopathy. This could be reactive. Consider six-month chest CT follow-up to ensure stability/resolution. Diffuse bronchial wall thickening with partial opacification of the right lower lobe bronchi. --ED discussed with ENT Dr. Ramos, currently no indication for surgery (tracheal stenosis-seem to be chronic) --COVID, influenza screen negative ---Positive for RSV -- Volume status managed through dialysis Appreciate nephrology input Started on IV solu-medrol, bronchodilators Continue home inhalers Oxygen support per protocol Procalcitonin pending Empirically started on Rocephin, doxycycline Pulmonary hygiene Will consult ENT if needed ESRD Appreciate Nephrology help Continue dialysis as per Nephrology Monitor volume status GERD Continue PPI Hypertension Continue home medication Dyslipidemia ON statin LARUEN Nocturnal hypoxia Chronic oxygen dependency on 2 L at bedtime on CPAP Goiter s/p partial thyroidectomy Tracheal stenosis CT as above DVT Px: Heparin SQ Code Status Full Code Disposition PT/OT prior discharge History of Present Illness Chief Complaint: Shortness of Breath Primary Care Provider: Alberto Yuen MD Patient is a 76-year-old female with history of end-stage renal disease on dialysis MWF, asthma, GERD, hypertension, dyslipidemia, LAUREN on CPAP, nocturnal hypoxemia, goiter s/p partial thyroidectomy and other medical problems presents with history of worsening shortness of breath associated with cough which has been gradually worsening especially over the past 2 to 3 days. Patient states having poor appetite associated with nausea for the last few months. Also states feeling tired and has been sleeping most of the day for the past 2 to 3 days. She has returned from [facility] 4 weeks ago. She was diagnosed to have COVID in October 2021. Reports significant dyspnea on exertion over the past 2 to 3 weeks. She has been having cough with clear expectoration but denies any hemoptysis and is associated with some chest heaviness. Patient is due for dialysis today and admits to have her last dialysis last week on Wednesday. Also reports chills, rhinitis and intermittent dizziness. She uses 2 L of supplemental oxygen along with CPAP at bedtime. She has been using her inhalers for asthma regularly. She was found to be hypoxic, 86% on room air while in ED. Denies any history of palpitations, pedal edema, fall, head trauma, headache, change in vision, vomiting, abdominal pain, diarrhea, dysuria, sick contact, recent change in medications. Allergies Allergy/AdvReac Type Severity Reaction Status Date / Time pollen extracts Allergy Mild sneezing, Verified 01/26/22 15:55 watery eyes No Known Drug Allergies Allergy Unknown Verified 01/26/22 15:55 Home Medications Medication Instructions Recorded Confirmed Type atorvastatin 40 mg tablet 40 mg PO QAM 11/10/18 01/26/22 History betaxolol 10 mg tablet 10 mg PO QAM #90 tabs 11/10/18 01/26/22 History montelukast 10 mg tablet 10 mg PO HS 11/17/18 01/26/22 History (Singulair) famotidine 20 mg tablet 20 mg PO AMHS 05/28/21 01/26/22 History lidocaine-prilocaine 2.5 %-2.5 % See Rx Instructions topical 05/28/21 01/26/22 History topical cream .COMPLEX nitroglycerin 0.4 mg sublingual 0.4 mg sublingual Q5M PRN Chest 05/28/21 01/26/22 History tablet (Nitrostat) Pain pantoprazole 40 mg tablet,delayed 20 mg PO DAILYBB 05/28/21 01/26/22 History release polyethylene glycol 3350 17 gram 17 g PO BID PRN Constipation 05/28/21 01/26/22 History oral powder packet (Miralax) triamcinolone acetonide 0.025 % 1 applic topical BID PRN Rash 05/28/21 01/26/22 History lotion fluticasone fur. 100 mcg-umeclid 1 inh inhalation QAM 10/14/21 01/26/22 History 62.5 mcg-vilant 25 mcg inhalat.powder (Trelegy Ellipta) albuterol sulfate 1.25 mg/3 mL 1.25 mg inhalation Q4H PRN Wheezing 01/26/22 01/26/22 History solution for nebulization albuterol sulfate 90 mcg/actuation 2 puff inhalation Q6 PRN Wheezing 01/26/22 01/26/22 History aerosol inhaler (Ventolin HFA) amlodipine 5 mg tablet 5 mg PO QAM 01/26/22 01/26/22 History aspirin 81 mg tablet,delayed 81 mg PO QAM 01/26/22 01/26/22 History release fluticasone propionate 50 2 spray intranasal QAM 01/26/22 01/26/22 History mcg/actuation nasal spray,suspension isosorbide mononitrate 30 mg 30 mg PO QAM 01/26/22 01/26/22 History tablet,extended release 24 hr ondansetron HCl 4 mg tablet 4 mg PO Q8 PRN Nausea 01/26/22 01/26/22 History sevelamer carbonate 800 mg tablet 1,600 mg PO TIDM 01/26/22 01/26/22 History vit B complx, C-iron 8 mg-folic 1 tab PO DAILY 01/26/22 01/26/22 History acid 800 mcg-D3 1,000 unit-zinc tablet (ProRenal) Past Med/Surg History Medical History Anemia Asthma, moderate persistent inhaler daily/prn, nebulizer prn AV fistula left arm Breast lesion Chronic anemia iron infusions Diabetes mellitus diet controlled End-stage renal disease on hemodialysis wed-wed-wed @ [facility] GERD (gastroesophageal reflux disease) Gout History of benign spinal cord tumor History of COVID-19 no symptoms, no hospitalization, no current issues Hyperlipidemia Hypertension On home oxygen therapy 2L via CPAP at night Sleep apnea CPAP with 2L oxygen Surgical History H/O partial thyroidectomy H/O: hysterectomy History of appendectomy History of back surgery History of cardiac cath 2yrs ago--normal, no stents History of cataract surgery History of cholecystectomy History of colonoscopy History of esophagogastroduodenoscopy (EGD) History of hysterectomy SANDRA BSO History of lumbar surgery History of oral surgery salivary gland surgery History of tooth extraction all teeth removed Hx of partial thyroidectomy S/P arteriovenous (AV) fistula creation Status post biopsy of kidney kidney disease Family History Daughter Cancer Breast Daughter Cancer Breast Daughter Hypertension Daughter Hypertension Father Diabetes Hypertension Mother Hypertension Brother Diabetes Brother Diabetes Sister Diabetes Sister Diabetes Sister Hypertension Sister Hypertension Other No family history of adverse response to anesthesia Social History Smoking Status: Never smoker Second Hand Exposure: No; Hx Alcohol Use: No Hx Substance Use: No Preferred Language: Cambodian Communication Ability: Effective Busperson Required: No Beliefs That Will Affect Care: None marital status: / Current Living Situation: Family Current Living Situation Comment: Lives with jimmy Feels Safe at Home: Yes Assistive Devices: Cane, CPAP, Denture - Upper, Denture - Lower, Glasses, Oxygen - at Night, Walker and Wheelchair Review of Systems Review of Systems: All systems reviewed & are unremarkable except as noted in Subjective Physical Exam Physical Exam: Physical Exam: Vitals signs as noted above General Appearance:Moderately built and nourished, chronically appearing, no apparent distress Head: normocephalic, Atraumatic Eyes: normal inspection, EOMI Neck: supple, Trachea deviated, +R goiter Respiratory/Chest: Coarse breath sounds, B/L expiratory wheezes, basal Rales and occasional rhonchi, No accessory muscle use Cardiovascular: S1, S2, No murmur Abdomen/GI:Soft, Non tender, Bowel sounds present Extremities/Musculoskeletal:normal inspection, Trace edema Neurologic/Psych:AAOX3, grossly no focal neurological deficits Skin: normal color, warm Results & Data Results & Data ([facility]) Vital Signs (Past 12 Hours) Vital Signs Temp Pulse Pulse Resp BP BP Pulse Ox 01/26/22 14:30 82 18 166/86 H 98 01/26/22 13:13 86 36 H 97 01/26/22 13:13 01/26/22 12:37 01/26/22 12:35 86 L 01/26/22 12:23 36.9 C 86 36 H 201/85 H 86 L O2 Del Method O2 Flow Rate 01/26/22 14:30 01/26/22 13:13 Nasal Cannula 4 01/26/22 13:13 Nasal Cannula 01/26/22 12:37 Nasal Cannula 01/26/22 12:35 Nasal Cannula 4 01/26/22 12:23 Room Air Laboratory Results Short CBC 01/26/22 Range/Units 12:50 WBC 9.05 (4.8-10.8) K/ul Hgb 9.6 L (12.0-16.0) g/dl Hct 30.9 L (34.1-44.9) % Plt Count 171 (130-400) K/uL BMP 01/26/22 12:50 Sodium 141 Potassium 4.9 Chloride 99 Carbon Dioxide 32 BUN 45 H Creatinine 8.36 H* Glucose 100 H Calcium 9.2 Diagnostic Findings Chest CTA: 1. No definite evidence for a pulmonary embolus with limitations as described above. 2. Cardiomegaly with mild pulmonary edema and trace bilateral pleural effusions. 3. Patchy airspace opacities within the right upper lobe and right lower lobe. This could be due to a pneumonia or an alveolar component of the pulmonary edema. 4. Decrease in size in the right thyroid goiter. However, there is progressive mass effect along the proximal trachea which now demonstrates 50% stenosis. 5. Progression of the mediastinal lymphadenopathy. This could be reactive. Consider six-month chest CT follow-up to ensure stability/resolution. 6. Diffuse bronchial wall thickening with partial opacification of the right lower lobe bronchi. ECG Additional Comments: EKG: Normal sinus rhythm, left axis deviation, incomplete right bundle branch block, QTC 437.
[2022-01-26] MEDS ORDERED: EPOETIN ALFA 10,000 UNITS/ML VIAL IV SCH (17:00)
--- NOTE | 2022-01-26 17:12 | Electrocardiogram Report ---
Test Reason : Blood Pressure : / mmHG Vent. Rate : 084 BPM Atrial Rate : 084 BPM P-R Int : 184 ms QRS Dur : 098 ms QT Int : 370 ms P-R-T Axes : 033 -40 059 degrees QTc Int : 437 ms Poor data quality, interpretation may be adversely affected Normal sinus rhythm Left axis deviation Incomplete right bundle branch block Septal infarct , age undetermined Abnormal ECG When compared with ECG of 22-APR-2017 11:22, Vent. rate has increased BY 29 BPM Septal infarct is now Present Nonspecific T wave abnormality no longer evident in Inferior leads Confirmed by Florentin Flores ([id number]) on 01/26/2022 5:12:15 PM Referred By: REFERRED SELF Confirmed By:Florentin Flores
[2022-01-26] MEDS ORDERED: LIDOCAINE/PRILOCAINE 2.5% EA CRM EXT PRN (20:43)
[2022-01-26] MEDS ORDERED: NITROGLYCERIN SL 0.4 MG/TAB TAB SL PRN (20:43)
[2022-01-26] MEDS ORDERED: ACETAMINOPHEN 325 MG TAB PO PRN (20:43)
[2022-01-26] MEDS ORDERED: POLYETHYLENE (MIRALAX) 17 GM PACK PO PRN (20:43)
[2022-01-26] MEDS ORDERED: cefTRIAXone SODIUM 1,000 MG in DEXTROSE 5% AD-VAN 50 ML IV SCH (20:43)
[2022-01-26] MEDS ORDERED: ALBUTEROL 0.083% NEBU SOLN 3 ML VIAL NEB PRN (20:43)
[2022-01-26] MEDS: FAMOTIDINE 20 MG TAB PO SCH (22:11)
[2022-01-26] MEDS: HEPARIN SOD 5,000 UNIT/0.5 ML VIAL SQ SCH (22:12)
[2022-01-26] MEDS: cefTRIAXone SODIUM 2,000 MG in DEXTROSE 5% 50 ML IV SCH (22:12)
[2022-01-26] MEDS: DOXYCYCLINE HYCLATE 100 MG CAP PO SCH (22:13)
[2022-01-26] MEDS: methylPREDNISolone 40 MG in SYRINGE 0 ML IV SCH (22:13)
[2022-01-26] MEDS: MONTELUKAST SODIUM 10 MG TABLET PO SCH (22:14)
[2022-01-26] MEDS: ALBUT/IPRATROP 3MG/0.5MG NEB 3 ML VIAL NEB SCH (22:50)
[2022-01-27] MEDS: HEPARIN SOD 5,000 UNIT/0.5 ML VIAL SQ SCH ×3 (06:22→21:18)
[2022-01-27] MEDS: PANTOprazole 40 MG TAB PO SCH (06:23)
[2022-01-27 06:37] LABS: Basophils # (auto) 0.01 K/uL (0-0.2); Basophils % (auto) 0.2 %; Hematocrit (blood only) 30.1 % (34.1-44.9); Hemoglobin 9.3 g/dl (12.0-16.0); Immature Granulocytes # (auto) 0.02 K/uL (0.00-0.02); Immature Granulocytes % (auto) 0.4 %; Lymphocytes # (auto) 0.99 K/uL (1.2-3.4); Lymphocytes % (auto) 18.7 %; Mean Corpuscular Hemoglobin 26.3 pg (25.0-34.0); Mean Corpuscular Hgb Conc 30.9 g/dL (32.0-36.0); Mean Corpuscular Volume 85.3 fL (80.0-100.0); Mean Platelet Volume 10.4 fL (9.4-12.3); Monocytes % (auto) 1.9 %; Neutrophils # (auto) 4.18 K/uL (1.4-6.5); Neutrophils % (auto) 78.8 %; Platelet Count 178 K/uL (130-400); RDW Coefficient of Variation 14.2 % (11.5-14.5); Red Blood Count 3.53 M/uL (3.93-5.22)
[2022-01-27 07:15] LABS: Calcium 9.6 mg/dl (8.5-10.1); Creatinine Clr Calc Pharmacy 7.9 ml/min; Est GFR (African American) 8.3 ml/min; Est GFR (Non-African American) 7.2 ml/min; Magnesium 2.1 mg/dl (1.7-2.4); Potassium 4.8 mmol/L (3.5-5.1)
[2022-01-27] MEDS ORDERED: Nursing to Pharmacy Communication SCH (07:30)
[2022-01-27] MEDS: ALBUT/IPRATROP 3MG/0.5MG NEB 3 ML VIAL NEB SCH ×4 (08:13→20:15)
[2022-01-27] MEDS: BETAXOLOL PO SCH (08:21)
[2022-01-27] MEDS: DOXYCYCLINE HYCLATE 100 MG CAP PO SCH ×2 (08:22→21:17)
[2022-01-27] MEDS: FAMOTIDINE 20 MG TAB PO SCH ×2 (08:22→21:17)
[2022-01-27] MEDS: SEVELAMER HCL 800 MG TABLET PO SCH ×3 (08:23→17:06)
[2022-01-27] MEDS: NEPHROCAPS PO SCH (08:23)
[2022-01-27] MEDS: FLUTICASONE PROPIONATE NA SPR 16 GM BTL SCH (08:24)
[2022-01-27] MEDS: ATORVASTATIN 40 MG TAB PO SCH (08:24)
[2022-01-27] MEDS: ASPIRIN 81 MG ECTAB PO SCH (08:24)
[2022-01-27] MEDS: UMECLIDINIUM/VILANTEROL 62.5/25MCG 7 PUFFS/INHALER INH SCH (08:25)
[2022-01-27] MEDS: FLUTICASONE FUROATE 100MCG 14 PUFFS/INHALER INH SCH (08:25)
--- NOTE | 2022-01-27 08:49 | Nephrology Progress Note ---
Date of Service January 27, 2022 Assessment & Plan (1) End-stage renal disease on hemodialysis: Plan: * ESKD on HD MWF at [facility] (3.25 hr, 2K 2Ca, F-180NR, EDW 70 kg) * Will provide HD tomorrow am and attempt further UF. Expect EDW has dropped to 68 kg * Monitor volume status, PRP (2) Congestive cardiac failure: Plan: * Clinically improved following 3L UF yesterday (3) Anemia: Plan: * Will provide FAZAL w/ HD (4) RSV (respiratory syncytial virus pneumonia): Plan: * Supportive care Admission and Anticipated Discharge Date Admission Date: January 26, 2022 Subjective Ms. Ward was evaluated in her hospital room this morning. She was dialyzed yesterday emergently for 3 L UF. This morning she is breathing comfortably on O2 at 2L/min NC. She still has a cough Review of Systems Constitutional: + fatigue; no fever Eyes: no problem reported Ear, Nose, Mouth, Throat: no problem reported Respiratory: + cough; no dyspnea Cardiovascular: no chest pain Gastrointestinal: no abdominal pain Physical Exam Constitutional: + frail appearing Eyes: PERRL, conjunctivae normal, anicteric sclerae ENMT: external ear and nose normal, oropharynx normal Neck: Thyroid: + thyromegaly Respiratory: Auscultation: lungs clear to auscultation bilaterally Cardiovascular: Rate/Rhythm: regular rate and regular rhythm Gastrointestinal (Abdomen): normal bowel sounds, soft, nontender, no hepatosp lenomegaly Neurologic: Speech / Cognition: normal cognition Results & Data ([facility]) Vital Signs (Past 12 Hours) Vital Signs Temp Pulse Pulse Pulse Resp BP Pulse Ox 01/27/22 08:13 79 19 94 01/27/22 07:51 36.6 C 72 20 153/73 H 97 01/27/22 02:46 36.6 C 66 18 119/58 L 99 01/27/22 00:05 82 01/26/22 21:05 77 01/26/22 21:05 01/26/22 21:05 36.5 C 72 18 145/76 H 96 01/26/22 22:52 78 20 96 01/26/22 22:34 36.7 C 80 18 151/82 H 93 O2 Del Method O2 Flow Rate 01/27/22 08:13 Nasal Cannula 2 01/27/22 07:51 Nasal Cannula 2 01/27/22 02:46 Nasal Cannula 2 01/27/22 00:05 01/26/22 21:05 01/26/22 21:05 Nasal Cannula 2 01/26/22 21:05 Nasal Cannula 2 01/26/22 22:52 Nasal Cannula 2 01/26/22 22:34 Nasal Cannula 2 Laboratory Results Laboratory Tests 01/27/22 01/27/22 01/27/22 05:34 05:34 05:34 WBC 5.30 Hgb 9.3 L Hct 30.1 L Plt Count 178 Sodium 138 Potassium 4.8 Chloride 100 Carbon Dioxide 28 BUN 32 H Creatinine 5.37 H* D Glucose 111 H Calcium 9.6 Magnesium 2.1 B-Natriuretic Peptide Pending Diagnostic Findings CXR - marked improvement in CHF PG Care Time/CCT Total # of Minutes Spent Total Time Spent with Patient: Total time spent is greater than 50% in coordination of care (as documented) at patient's floor/unit and/or counseling patient: Coding Level of Care Code 39205 Subseq Hosp Care Lvl 3 Diagnoses End-stage renal disease on hemodialysis N18.6; Z99.2 Congestive cardiac failure I50.9 Anemia D64.9 RSV (respiratory syncytial virus pneumonia) J12.1
[2022-01-27] MEDS ORDERED: amLODIPine BESYLATE 5 MG TAB PO SCH (09:00)
[2022-01-27] MEDS ORDERED: ISOSORBIDE MONO EXTENDED REL 30 MG TABCR PO SCH (09:00)
[2022-01-27] MEDS: methylPREDNISolone 40 MG in SYRINGE 0 ML IV SCH ×2 (09:34→21:16)
[2022-01-27] MEDS: guaiFENesin/DEXTROM SYRUP 100MG/10MG 5ML UDC PO PRN ×2 (09:35→21:16)
[2022-01-27] MEDS ORDERED: POLYETHYLENE (MIRALAX) 17 GM PACK PO ONE (10:42)
[2022-01-27] MEDS: ONDANSETRON INJ 2 MG/ML 2 ML VIAL IV PRN (16:34)
--- NOTE | 2022-01-27 17:13 | XRay Report ---
XR chest 1V portable HISTORY: Congestive heart failure. Follow-up. Shortness of breath. COMPARISON: Chest 01/26/2022. FINDINGS: Interval improvement in the mild pulmonary edema. No pneumothorax. Trace bilateral pleural effusions are noted. There is a large hiatus hernia. The heart remains enlarged. Patchy right midlung zone densities have also improved. IMPRESSION: Interval improvement in the now mild pulmonary edema. ACT 112: Negative or not required by law. Electronically signed by: Guilherme Rome M.D. 01/27/2022 5:12 PM
--- NOTE | 2022-01-27 17:32 | Hospitalist Progress Note ---
Date of Service January 27, 2022 Assessment & Plan (1) RSV (respiratory syncytial virus pneumonia): Plan: Acute on chronic Respiratory failure with hypoxia: Multifactorial: Volume overload, asthma exacerbation, RSV infection, chronic tracheal stenosis Suspected multifocal pneumonia --CTA:1. No definite evidence for a pulmonary embolus with limitations as described above. Cardiomegaly with mild pulmonary edema and trace bilateral pleural effusions. Patchy airspace opacities within the right upper lobe and right lower lobe. This could be due to a pneumonia or an alveolar component of the pulmonary edema. Decrease in size in the right thyroid goiter. However, there is progressive mass effect along the proximal trachea which now demonstrates 50% stenosis. Progression of the mediastinal lymphadenopathy. This could be reactive. Consider six-month chest CT follow-up to ensure stability/resolution. Diffuse bronchial wall thickening with partial opacification of the right lower lobe bronchi. --ED discussed with ENT Dr. Ramos, currently no indication for surgery (tracheal stenosis-seem to be chronic) --COVID, influenza screen negative ---Positive for RSV -- Volume status managed through dialysis Appreciate nephrology input Continue IV solu-medrol, bronchodilators Continue home inhalers Oxygen support per protocol Procalcitonin pending Continue Rocephin, doxycycline Pulmonary hygiene CXR today showed Interval improvement in the now mild pulmonary edema. Titrate down IV steroids as able Planned for dialysis tomorrow will need 2 step prior to discharge ESRD Appreciate Nephrology help Continue dialysis as per Nephrology Monitor volume status GERD Continue PPI Hypertension Continue home medication Dyslipidemia ON statin LAUREN Nocturnal hypoxia Chronic oxygen dependency on 2 L at bedtime on CPAP Goiter s/p partial thyroidectomy Tracheal stenosis CT as above DVT Px: Heparin SQ Code Status Full Code Disposition PT/OT prior discharge Admission and Anticipated Discharge Date Admission Date: January 26, 2022 Subjective Patient is seen and examined at bedside States feeling better today Less cough, dyspnea, wheezing today Offers no new complaints Discussed with patient's daughter at bedside Denies any chest pain, dizziness, nausea, abdominal pain Poor appetite Review of Systems Review of Systems: All systems reviewed & are unremarkable except as noted in Subjective Physical Exam Physical Exam: Physical Exam: Vitals signs as noted above General Appearance:Moderately built and nourished, chronically appearing, no apparent distress Head: normocephalic, Atraumatic Eyes: normal inspection, EOMI Neck: supple, Trachea deviated, +R goiter Respiratory/Chest: Decreased breath sounds, B/L scattered wheezes, No accessory muscle use Cardiovascular: S1, S2, No murmur Abdomen/GI:Soft, Non tender, Bowel sounds present Extremities/Musculoskeletal:normal inspection, Trace edema Neurologic/Psych:AAOX3, grossly no focal neurological deficits Skin: normal color, warm Results & Data Results & Data ([facility]) Vital Signs (Past 12 Hours) Vital Signs Temp Pulse Pulse Pulse Resp BP Pulse Ox 01/27/22 16:00 75 01/27/22 16:04 36.7 C 84 20 175/82 H 92 01/27/22 15:55 01/27/22 14:56 82 20 97 01/27/22 12:02 36.7 C 65 18 153/71 H 96 01/27/22 10:44 62 18 96 01/27/22 08:00 82 01/27/22 08:00 01/27/22 08:13 79 19 94 01/27/22 07:51 36.6 C 72 20 153/73 H 97 O2 Del Method O2 Flow Rate 01/27/22 16:00 01/27/22 16:04 Room Air 01/27/22 15:55 Nasal Cannula 2 01/27/22 14:56 Nasal Cannula 2 01/27/22 12:02 Nasal Cannula 2 01/27/22 10:44 Nasal Cannula 2 01/27/22 08:00 01/27/22 08:00 Nasal Cannula 2 01/27/22 08:13 Nasal Cannula 2 01/27/22 07:51 Nasal Cannula 2 Laboratory Results Short CBC 01/27/22 Range/Units 05:34 WBC 5.30 (4.8-10.8) K/ul Hgb 9.3 L (12.0-16.0) g/dl Hct 30.1 L (34.1-44.9) % Plt Count 178 (130-400) K/uL BMP 01/27/22 05:34 Sodium 138 Potassium 4.8 Chloride 100 Carbon Dioxide 28 BUN 32 H Creatinine 5.37 H* D Glucose 111 H Calcium 9.6
[2022-01-27] MEDS: cefTRIAXone SODIUM 2,000 MG in DEXTROSE 5% 50 ML IV SCH (21:16)
[2022-01-27] MEDS: MONTELUKAST SODIUM 10 MG TABLET PO SCH (21:17)
[2022-01-27] MEDS: ISOSORBIDE MONO EXTENDED REL 30 MG TABCR PO SCH (21:18)
[2022-01-27] MEDS: amLODIPine BESYLATE 5 MG TAB PO SCH (21:18)
[2022-01-28] MEDS: PANTOprazole 40 MG TAB PO SCH (05:46)
[2022-01-28] MEDS: HEPARIN SOD 5,000 UNIT/0.5 ML VIAL SQ SCH ×3 (05:46→23:00)
[2022-01-28 06:04] LABS: Basophils # (auto) 0.02 K/uL (0-0.2); Basophils % (auto) 0.3 %; Hematocrit (blood only) 29.1 % (34.1-44.9); Hemoglobin 8.9 g/dl (12.0-16.0); Immature Granulocytes # (auto) 0.07 K/uL (0.00-0.02); Immature Granulocytes % (auto) 0.9 %; Lymphocytes % (auto) 11.8 %; Mean Corpuscular Hemoglobin 25.9 pg (25.0-34.0); Mean Corpuscular Hgb Conc 30.6 g/dL (32.0-36.0); Mean Corpuscular Volume 84.6 fL (80.0-100.0); Mean Platelet Volume 10.5 fL (9.4-12.3); Monocytes # (auto) 0.32 K/uL (0.24-0.82); Monocytes % (auto) 4.2 %; Neutrophils # (auto) 6.33 K/uL (1.4-6.5); Neutrophils % (auto) 82.8 %; Platelet Count 193 K/uL (130-400); RDW Coefficient of Variation 14.1 % (11.5-14.5); RDW Standard Deviation 43.6 fL (36.4-46.3); Red Blood Count 3.44 M/uL (3.93-5.22); White Blood Count 7.64 K/ul (4.8-10.8)
[2022-01-28 06:33] LABS: BUN Creatinine Ratio 8.8 (10-20); Calcium 9.4 mg/dl (8.5-10.1); Creatinine Clr Calc Pharmacy 6.1 ml/min; Est GFR (African American) 5.9 ml/min; Est GFR (Non-African American) 5.1 ml/min; Magnesium 2.1 mg/dl (1.7-2.4); Potassium 5.5 mmol/L (3.5-5.1)
[2022-01-28] MEDS ORDERED: SODIUM CHLORIDE 0.9% 1000ML 1,000 ML IV PRN (07:00)
[2022-01-28] MEDS ORDERED: HEPARIN SOD (PORCINE) 1000 UNIT/ML IV ONE (07:00)
[2022-01-28] MEDS: ALBUT/IPRATROP 3MG/0.5MG NEB 3 ML VIAL NEB SCH ×4 (07:50→19:53)
[2022-01-28] MEDS: SEVELAMER HCL 800 MG TABLET PO SCH ×3 (08:11→17:34)
[2022-01-28] MEDS: FAMOTIDINE 20 MG TAB PO SCH ×2 (08:11→20:38)
[2022-01-28] MEDS: ASPIRIN 81 MG ECTAB PO SCH (08:11)
[2022-01-28] MEDS: DOXYCYCLINE HYCLATE 100 MG CAP PO SCH ×2 (08:11→23:00)
[2022-01-28] MEDS: FLUTICASONE PROPIONATE NA SPR 16 GM BTL SCH (08:12)
[2022-01-28] MEDS: FLUTICASONE FUROATE 100MCG 14 PUFFS/INHALER INH SCH (08:12)
[2022-01-28] MEDS: UMECLIDINIUM/VILANTEROL 62.5/25MCG 7 PUFFS/INHALER INH SCH (08:12)
[2022-01-28] MEDS: NEPHROCAPS PO SCH (08:12)
[2022-01-28] MEDS: ATORVASTATIN 40 MG TAB PO SCH (08:12)
[2022-01-28] MEDS: methylPREDNISolone 40 MG in SYRINGE 0 ML IV SCH (08:13)
[2022-01-28] MEDS: BETAXOLOL PO SCH (08:13)
--- NOTE | 2022-01-28 09:05 | Nephrology Progress Note ---
Date of Service January 28, 2022 Assessment & Plan (1) End-stage renal disease on hemodialysis: Plan: * ESKD on HD MWF at [facility] (3.25 hr, 2K 2Ca, F-180NR, EDW 70 kg) * Will provide HD today and attempt 2 L UF * Monitor volume status, PRP (2) Congestive cardiac failure: Plan: * Clinically improved (3) Anemia: Plan: * Will provide FAZAL w/ HD (4) RSV (respiratory syncytial virus pneumonia): Plan: * On steroid therapy as per hospitalist service Admission and Anticipated Discharge Date Admission Date: January 26, 2022 Subjective Ms. Ward was evaluated in her hospital room this morning. She has a recurrent cough but voices no new medical concerns Review of Systems Constitutional: + fatigue; no fever Eyes: no problem reported Ear, Nose, Mouth, Throat: no problem reported Respiratory: + cough; no dyspnea Cardiovascular: no chest pain Gastrointestinal: no abdominal pain Physical Exam Constitutional: + frail appearing Eyes: PERRL, conjunctivae normal, anicteric sclerae ENMT: external ear and nose normal, oropharynx normal Neck: Thyroid: + thyromegaly Respiratory: Auscultation: lungs clear to auscultation bilaterally, + rales and + wheezes Cardiovascular: Rate/Rhythm: regular rate and regular rhythm Gastrointestinal (Abdomen): normal bowel sounds, soft, nontender, no hepatosplenomegaly Neurologic: Speech / Cognition: normal cognition Results & Data ([facility]) Vital Signs (Past 12 Hours) Vital Signs Temp Pulse Pulse Resp BP Pulse Ox O2 Del Method 01/28/22 07:51 70 18 100 Nasal Cannula 01/28/22 07:07 36.6 C 69 16 143/72 H 99 Nasal Cannula 01/28/22 03:00 36.6 C 79 18 152/79 H 99 Nasal Cannula 01/28/22 00:00 82 01/27/22 23:00 36.6 C 75 18 157/80 H 98 Nasal Cannula O2 Flow Rate 01/28/22 07:51 2 01/28/22 07:07 3 01/28/22 03:00 2 01/28/22 00:00 01/27/22 23:00 2 Laboratory Results Laboratory Tests 01/27/22 01/28/22 01/28/22 16:03 05:35 05:35 WBC 7.64 Hgb 8.9 L Hct 29.1 L Plt Count 193 Sodium 134 L Potassium 5.5 H Chloride 97 L Carbon Dioxide 28 BUN 62 H D Creatinine 7.08 H* D Glucose 134 H Calcium 9.4 B-Natriuretic Peptide 2778 H PG Care Time/CCT Total # of Minutes Spent Total Time Spent with Patient: Total time spent is greater than 50% in coordination of care (as documented) at patient's floor/unit and/or counseling patient: Coding Level of Care Code 98797 Subseq Hosp Care Lvl 3 Diagnoses End-stage renal disease on hemodialysis N18.6; Z99.2 Congestive cardiac failure I50.9 Anemia D64.9 RSV (respiratory syncytial virus pneumonia) J12.1
[2022-01-28] MEDS: predniSONE 20 MG TAB PO SCH (10:56)
--- NOTE | 2022-01-28 13:07 | Hospitalist Progress Note ---
Date of Service January 28, 2022 Assessment & Plan (1) RSV (respiratory syncytial virus pneumonia): Plan: Acute on chronic Respiratory failure with hypoxia: Multifactorial: Volume overload, asthma exacerbation, RSV infection, chronic tracheal stenosis Suspected multifocal pneumonia --CTA:1. No definite evidence for a pulmonary embolus with limitations as described above. Cardiomegaly with mild pulmonary edema and trace bilateral pleural effusions. Patchy airspace opacities within the right upper lobe and right lower lobe. This could be due to a pneumonia or an alveolar component of the pulmonary edema. Decrease in size in the right thyroid goiter. However, there is progressive mass effect along the proximal trachea which now demonstrates 50% stenosis. Progression of the mediastinal lymphadenopathy. This could be reactive. Consider six-month chest CT follow-up to ensure stability/resolution. Diffuse bronchial wall thickening with partial opacification of the right lower lobe bronchi. --ED discussed with ENT Dr. Ramos, currently no indication for surgery (tracheal stenosis-seem to be chronic) --COVID, influenza screen negative ---Positive for RSV -- Volume status managed through dialysis Appreciate nephrology input will give 5 day course total of steroids (prednisone), continue bronchodilators Continue home inhalers Oxygen support per protocol Continue Rocephin, doxycycline for 5 day course Pulmonary hygiene HD per renal for fluid removal will need 2 step prior to discharge ESRD Appreciate Nephrology help Continue dialysis as per Nephrology Monitor volume status GERD Continue PPI Hypertension Continue home medication Dyslipidemia ON statin LAUREN Nocturnal hypoxia Chronic oxygen dependency on 2 L at bedtime on CPAP Goiter s/p partial thyroidectomy Tracheal stenosis CT as above DVT Px: Heparin SQ Code Status Full Code Disposition PT/OT prior discharge Admission and Anticipated Discharge Date Admission Date: January 26, 2022 Subjective Patient with ESRD on HD, chronic respiratory failure in setting of asthma, chronic tracheal stenosis, GERD, HTN, HLD, LAUREN on CPAP and nocturnal oxygen presented with hypoxia and decreased appetite, found to have volume overload and RSV infection. Given supportive care, HD with renal, and empiric abx with improvement. Patient reports some improvement today, denies shortness of breath at rest, still with cough, ok appetite. Denies chest pain, fever or chills, n/v/d, leg swelling. Review of Systems Review of Systems: All systems reviewed & are unremarkable except as noted in Subjective Physical Exam Physical Exam: Constitutional:J + frail appearing , NAD Eyes: PERRL, conjunctiva e normal, anicteri c sclerae ENMT: external ear and n ose normal, oropha rynx normal Neck: Thyroid: + thyrome justin Respiratory: Auscultation: lung s clear to auscult ation bilaterally Cardiovascular:J Rate/Rhythm: regul ar rate and regula r rhythm Gastrointestinal ( Abdomen): normal bowel sound s, soft, nontender , no hepatosplenom egaly Neurologic: Speech / Cognition : normal cognition Results & Data Results & Data ([facility]) Vital Signs (Past 12 Hours) Vital Signs Temp Pulse Pulse Pulse Resp BP BP 01/28/22 12:10 36.6 C 71 150/75 H 01/28/22 12:00 65 141/67 H 01/28/22 11:30 62 156/68 H 01/28/22 11:00 65 166/82 H 01/28/22 11:03 63 20 01/28/22 10:30 63 135/67 01/28/22 10:00 66 138/77 01/28/22 09:30 66 137/69 01/28/22 08:00 72 01/28/22 09:00 73 145/75 H 01/28/22 08:45 36.7 C 79 01/28/22 07:51 70 18 01/28/22 07:07 36.6 C 69 16 143/72 H 01/28/22 03:00 36.6 C 79 18 152/79 H Pulse Ox O2 Del Method O2 Flow Rate 01/28/22 12:10 01/28/22 12:00 01/28/22 11:30 01/28/22 11:00 01/28/22 11:03 98 Nasal Cannula 2 01/28/22 10:30 01/28/22 10:00 01/28/22 09:30 01/28/22 08:00 01/28/22 09:00 01/28/22 08:45 01/28/22 07:51 100 Nasal Cannula 2 01/28/22 07:07 99 Nasal Cannula 3 01/28/22 03:00 99 Nasal Cannula 2 Diagnostic Findings Laboratory Results WBC 7.64 K/ul (4.8-10.8) 01/28/22 05:35 RBC 3.44 M/uL (3.93-5.22) L 01/28/22 05:35 Hgb 8.9 g/dl (12.0-16.0) L 01/28/22 05:35 Hct 29.1 % (34.1-44.9) L 01/28/22 05:35 MCV 84.6 fL (80.0-100.0) 01/28/22 05:35 MCH 25.9 pg (25.0-34.0) 01/28/22 05:35 MCHC 30.6 g/dL (32.0-36.0) L 01/28/22 05:35 RDW Std Deviation 43.6 fL (36.4-46.3) 01/28/22 05:35 RDW Coeff of Luis 14.1 % (11.5-14.5) 01/28/22 05:35 Plt Count 193 K/uL (130-400) 01/28/22 05:35 MPV 10.5 fL (9.4-12.3) 01/28/22 05:35 Immature Gran % (Auto) 0.9 % 01/28/22 05:35 Neut % (Auto) 82.8 % 01/28/22 05:35 Lymph % (Auto) 11.8 % 01/28/22 05:35 Merrick % (Auto) 4.2 % 01/28/22 05:35 Eos % (Auto) 0.0 % 01/28/22 05:35 Baso % (Auto) 0.3 % 01/28/22 05:35 Neut # (Auto) 6.33 K/uL (1.4-6.5) 01/28/22 05:35 Lymph # (Auto) 0.90 K/uL (1.2-3.4) L 01/28/22 05:35 Merrick # (Auto) 0.32 K/uL (0.24-0.82) 01/28/22 05:35 Eos # (Auto) 0.00 K/uL (0-0.50) 01/28/22 05:35 Baso # (Auto) 0.02 K/uL (0-0.2) 01/28/22 05:35 Immature Gran # (Auto) 0.07 K/uL (0.00-0.02) H 01/28/22 05:35 VBG pH 7.37 (7.36-7.41) 01/26/22 13:29 VBG pCO2 61 mmHg (38-50) H 01/26/22 13:29 VBG pO2 52 mmHg 01/26/22 13:29 VBG HCO3 35 mmol/L 01/26/22 13:29 VBG O2 Saturation 80.7 % 01/26/22 13:29 VBG Base Excess 7.8 mEq/L 01/26/22 13:29 Sodium 134 mmol/L (136-145) L 01/28/22 05:35 Potassium 5.5 mmol/L (3.5-5.1) H 01/28/22 05:35 Chloride 97 mmol/L (98-107) L 01/28/22 05:35 Carbon Dioxide 28 mmol/L (21-32) 01/28/22 05:35 Anion Gap 9 (3-11) 01/28/22 05:35 BUN 62 mg/dl (6-23) H D 01/28/22 05:35 Creatinine 7.08 mg/dl (0.6-1.2) H* D 01/28/22 05:35 Est Cr Clr Drug Dosing 6.1 ml/min 01/28/22 05:35 Est GFR ( Amer) 5.9 ml/min 01/28/22 05:35 Est GFR (Non-Af Amer) 5.1 ml/min 01/28/22 05:35 BUN/Creatinine Ratio 8.8 (10-20) L 01/28/22 05:35 Glucose 134 mg/dl (70-99(Fasting)) H 01/28/22 05:35 Calcium 9.4 mg/dl (8.5-10.1) 01/28/22 05:35 Magnesium 2.1 mg/dl (1.7-2.4) 01/28/22 05:35 Troponin I High Sens 30.2 pg/ml (0-14) H 01/26/22 12:50 B-Natriuretic Peptide 2778 pg/ml (0-100) H 01/27/22 16:03 Procalcitonin 0.08 ng/ml (0-0.5) 01/26/22 12:50 Nasal Screen MRSA (PCR) Negative (Negative) 01/26/22 22:25 SARS-CoV-2 (PCR) NEGATIVE (Negative) 01/26/22 12:35 Influenza Type A (PCR) Negative (Neg) 01/26/22 12:35 Influenza Type B (PCR) Negative (Neg) 01/26/22 12:35 RSV (RT-PCR) Positive (Neg) A* 01/26/22 12:35 Impressions Chest CTA 01/26/22 12:53 CHEST CTA for PULMONARY ARTERIES CT DOSE: 498.61 mGycm HISTORY: Cough. Shortness of breath. TECHNIQUE: Multiaxial CT images of the chest were performed following the intravenous administration of contrast to evaluate the pulmonary arteries. Maximal intensity projection images were also obtained. A dose lowering technique was utilized adhering to the principles of ALARA. COMPARISON STUDY: Chest CT 10/10/2020. FINDINGS: There is chronic elevation of the right hemidiaphragm. Retrograde opacification of the hepatic veins is noted. The visualized spleen and adrenal glands are unremarkable. There is a large hiatus hernia, unchanged. Otherwise, normal caliber esophagus. Decrease in size in the multinodular thyroid goiter. However, there is progressive mass effect along the proximal trachea best seen on image 252 which demonstrates approximately 50% stenosis. Redemonstration of the solid lymphadenopathy. This has slightly progressed. Dominant right paratracheal lymph node measures 16 mm, previously measuring 11 mm. No significant hilar lymphadenopathy. There are trace bilateral pleural effusions. No significant pericardial effusion. The heart remains enlarged. There is a 7 mm right inferior breast nodule on image 154. This was likely present on the prior study. No suspicious lytic or blastic osseous lesions. No pneumothorax. Diffuse bronchial wall thickening with partial opacification of the right lower lobe bronchi. Mild interlobular septal thickening suggestive of mild pulmonary edema. Groundglass densities at the lung bases favor dependent change. There are additional patchy airspace opacities within the right upper lobe on image 174 and within the right lower lobe on image 145. This could represent a pneumonia or a component of the pulmonary edema. No evidence for an aortic dissection. Respiratory motion results in suboptimal evaluation of the segmental and subsegmental pulmonary arteries. Questionable filling defect within the left upper lobe subsegmental pulmonary artery on image 187 is likely due to the motion artifact. Otherwise, no filling defects within the arteries to suggest a pulmonary embolus. IMPRESSION: 1. No definite evidence for a pulmonary embolus with limitations as described above. 2. Cardiomegaly with mild pulmonary edema and trace bilateral pleural effusions. 3. Patchy airspace opacities within the right upper lobe and right lower lobe. This could be due to a pneumonia or an alveolar component of the pulmonary edema. 4. Decrease in size in the right thyroid goiter. However, there is progressive mass effect along the proximal trachea which now demonstrates 50% stenosis. 5. Progression of the mediastinal lymphadenopathy. This could be reactive. Consider six-month chest CT follow-up to ensure stability/resolution. 6. Diffuse bronchial wall thickening with partial opacification of the right lower lobe bronchi. 7. Additional findings as described above. ACT 112: Positive. There are findings on this exam that require communication between the performing entity and the patient following Patient Test Result Information Act ([place] Act 112) guidelines. Electronically signed by: Guilherme Rome M.D. 01/26/2022 2:39 PM Chest X-Ray 01/27/22 08:47 XR chest 1V portable HISTORY: Congestive heart failure. Follow-up. Shortness of breath. COMPARISON: Chest 01/26/2022. FINDINGS: Interval improvement in the mild pulmonary edema. No pneumothorax. Trace bilateral pleural effusions are noted. There is a large hiatus hernia. The heart remains enlarged. Patchy right midlung zone densities have also improved. IMPRESSION: Interval improvement in the now mild pulmonary edema. ACT 112: Negative or not required by law. Electronically signed by: Guilherme Rome M.D. 01/27/2022 5:12 PM Medications Administered Current Inpatient Medications Acetaminophen (Acetaminophen 325 Mg Tab) 650 mg PO Q4H PRN PRN Reason: Pain or Fever Stop: 02/25/22 20:42 Albuterol (Albut/Ipratrop 3mg/0.5mg Neb 3 Ml Vial) 3 ml NEB QIDR RIVAS; Protocol Stop: 02/25/22 20:42 Last Admin: 01/28/22 11:01 Dose: 3 ml Albuterol (Albuterol 0.083% Nebu Soln 3 Ml Vial) 2.5 mg NEB Q6R PRN; Protocol PRN Reason: Shortness Of Breath Or Wheezing Stop: 02/25/22 20:42 Amlodipine Besylate (Amlodipine Besylate 5 Mg Tab) 5 mg PO [facility] Stop: 02/26/22 08:59 Last Admin: 01/27/22 21:18 Dose: 5 mg Aspirin (Aspirin 81 Mg Ectab) 81 [facility] Stop: 02/26/22 08:59 Last Admin: 01/28/22 08:11 Dose: 81 mg Atorvastatin Calcium (Atorvastatin 40 Mg Tab) 40 mg PO [facility] Stop: 02/26/22 08:59 Last Admin: 01/28/22 08:12 Dose: 40 mg Doxycycline Hyclate (Doxycycline Hyclate 100 Mg Cap) 100 mg PO BID [facility] Stop: 02/02/22 20:59 Last Admin: 01/28/22 08:11 Dose: 100 mg Famotidine (Famotidine 20 Mg Tab) 20 mg PO [facility] Stop: 02/25/22 20:59 Last Admin: 01/28/22 08:11 Dose: 20 mg Fluticasone Furoate (Fluticasone Furoate 100mcg 14 Puffs/Inhaler) 1 puffs INH [facility] Stop: 02/26/22 08:59 Last Admin: 01/28/22 08:12 Dose: 1 puffs Fluticasone Propionate (Fluticasone Propionate Na Spr 16 Gm Btl) 2 sprays NA [facility] Stop: 02/26/22 08:59 Last Admin: 01/28/22 08:12 Dose: 2 sprays Guaifenesin/Dextromethorphan (Guaifenesin/Dextrom Syrup 100mg/10mg 5ml Udc) 5 ml PO Q6H PRN PRN Reason: Cough Stop: 02/25/22 20:42 Last Admin: 01/27/22 21:16 Dose: 5 ml Heparin Sodium (Porcine) (Heparin Sod 5,000 Unit/0.5 Ml Vial) 5,000 units SQ Q8 [facility] Stop: 02/25/22 21:59 Last Admin: 01/28/22 05:46 Dose: 5,000 units Ceftriaxone Sodium 2,000 mg/ (Dextrose) 70 mls @ 140 mls/hr IV Q24H [facility] Stop: 02/02/22 21:59 Last Infusion: 01/27/22 21:48 Dose: Infused Sodium Chloride (Nss 1000ml) 1,000 mls @ 0 mls/hr IV .Q0M PRN PRN Reason: For Hemodialysis Use ONLY Stop: 01/28/22 12:59 Isosorbide Mononitrate (Isosorbide Merrick Extended Rel 30 Mg Tabcr) 30 mg PO [facility] Stop: 02/26/22 08:59 Last Admin: 01/27/22 21:18 Dose: 30 mg Lidocaine/Prilocaine (Lidocaine/Prilocaine 2.5% Ea Crm) 1 each EXT DAILY PRN PRN Reason: DIALYSIS Stop: 02/25/22 20:42 Montelukast Sodium (Montelukast Sodium 10 Mg Tablet) 10 mg PO HS [facility] Stop: 02/25/22 20:59 Last Admin: 01/27/22 21:17 Dose: 10 mg Nitroglycerin (Nitroglycerin Sl 0.4 Mg/Tab Tab) 0.4 mg SL Q5M PRN PRN Reason: Chest Pain Stop: 02/25/22 20:42 Betaxolol - Patient' (s Own Med) 1 each PO QAM [facility]IVAS Stop: 02/26/22 08:59 Last Admin: 01/28/22 08:13 Dose: 1 tab Ondansetron HCl (Ondansetron Inj 2 Mg/Ml 2 Ml Vial) 4 mg IV Q6H PRN PRN Reason: Nausea Stop: 02/25/22 20:42 Last Admin: 01/27/22 16:34 Dose: 4 mg Pantoprazole Sodium (Pantoprazole 40 Mg Tab) 40 mg PO DAILYBB [facility] Stop: 02/26/22 06:29 Last Admin: 01/28/22 05:46 Dose: 40 mg Prednisone (Prednisone 20 Mg Tab) 40 mg PO DAILY [facility] Stop: 01/31/22 08:59 Last Admin: 01/28/22 10:56 Dose: 40 mg Sevelamer HCl (Sevelamer Hcl 800 Mg Tablet) 1,600 mg PO TIDM [facility]IVAS Stop: 02/26/22 07:59 Last Admin: 01/28/22 12:37 Dose: 1,600 mg Umeclidinium/Vilanterol (Umeclidinium/Vilanterol 62.5/25mcg 7 Puffs/Inhaler) 1 puffs INH QAM [facility] Stop: 02/26/22 08:59 Last Admin: 01/28/22 08:12 Dose: 1 puffs Vitamin B Complex/Folic Acid (Nephrocaps) 1 cap PO DAILY [facility] Stop: 02/26/22 08:59 Last Admin: 01/28/22 08:12 Dose: 1 cap
[2022-01-28] MEDS: ONDANSETRON INJ 2 MG/ML 2 ML VIAL IV PRN (19:45)
[2022-01-28] MEDS: ISOSORBIDE MONO EXTENDED REL 30 MG TABCR PO SCH (20:39)
[2022-01-28] MEDS: amLODIPine BESYLATE 5 MG TAB PO SCH (20:39)
[2022-01-28] MEDS: MONTELUKAST SODIUM 10 MG TABLET PO SCH (20:40)
[2022-01-28] MEDS: guaiFENesin/DEXTROM SYRUP 100MG/10MG 5ML UDC PO PRN (23:00)
[2022-01-28] MEDS: cefTRIAXone SODIUM 2,000 MG in DEXTROSE 5% 50 ML IV SCH (23:29)
[2022-01-29] MEDS: HEPARIN SOD 5,000 UNIT/0.5 ML VIAL SQ SCH (06:45)
[2022-01-29] MEDS: ONDANSETRON INJ 2 MG/ML 2 ML VIAL IV PRN (06:45)
[2022-01-29] MEDS: PANTOprazole 40 MG TAB PO SCH (06:45)
[2022-01-29 06:47] LABS: BUN Creatinine Ratio 10.9 (10-20); Calcium 9.4 mg/dl (8.5-10.1); Creatinine Clr Calc Pharmacy 9.5 ml/min; Est GFR (African American) 10.3 ml/min; Est GFR (Non-African American) 8.8 ml/min; Magnesium 1.9 mg/dl (1.7-2.4); Phosphorus 2.7 mg/dl (2.5-4.9); Potassium 4.9 mmol/L (3.5-5.1)
[2022-01-29] MEDS: ALBUT/IPRATROP 3MG/0.5MG NEB 3 ML VIAL NEB SCH ×2 (07:06→10:01)
[2022-01-29] MEDS: ASPIRIN 81 MG ECTAB PO SCH (08:10)
[2022-01-29] MEDS: FAMOTIDINE 20 MG TAB PO SCH (08:11)
[2022-01-29] MEDS: predniSONE 20 MG TAB PO SCH (08:11)
[2022-01-29] MEDS: NEPHROCAPS PO SCH (08:11)
[2022-01-29] MEDS: SEVELAMER HCL 800 MG TABLET PO SCH (08:11)
[2022-01-29] MEDS: DOXYCYCLINE HYCLATE 100 MG CAP PO SCH (08:11)
[2022-01-29] MEDS: ATORVASTATIN 40 MG TAB PO SCH (08:12)
[2022-01-29] MEDS: guaiFENesin/DEXTROM SYRUP 100MG/10MG 5ML UDC PO PRN (08:13)
[2022-01-29] MEDS: BETAXOLOL PO SCH (08:13)
[2022-01-29] MEDS: FLUTICASONE FUROATE 100MCG 14 PUFFS/INHALER INH SCH (08:14)
[2022-01-29] MEDS: FLUTICASONE PROPIONATE NA SPR 16 GM BTL SCH (08:14)
[2022-01-29] MEDS: UMECLIDINIUM/VILANTEROL 62.5/25MCG 7 PUFFS/INHALER INH SCH (08:14)
--- NOTE | 2022-01-29 08:37 | Nephrology Progress Note ---
Date of Service January 29, 2022 Assessment & Plan (1) End-stage renal disease on hemodialysis: Plan: * ESKD on HD MWF at [facility] (3.25 hr, 2K 2Ca, F-180NR, EDW 70 kg) * No acute indication for HD today. I have called [facility] and advised them of Ms. Ward's plans and need for outpatient HD tomorrow * Monitor volume status, PRP (2) Congestive cardiac failure: Plan: * Clinically improved (3) Anemia: Plan: * Will provide FAZAL w/ HD (4) RSV (respiratory syncytial virus pneumonia): Plan: * On steroid therapy as per hospitalist service Admission and Anticipated Discharge Date Admission Date: January 26, 2022 Subjective Ms. Ward was evaluated in her hospital room this morning. Cough has improved. She hopes to be discharged today, return to outpatient HD tomorrow and then Wednesday travel to [place] to be with her son Review of Systems Constitutional: + fatigue; no fever Eyes: no problem reported Ear, Nose, Mouth, Throat: no problem reported Respiratory: + cough; no dyspnea Cardiovascular: no chest pain Gastrointestinal: no abdominal pain Physical Exam Constitutional: + frail appearing Eyes: PERRL, conjunctivae normal, anicteric sclerae ENMT: external ear and nose normal, oropharynx normal Neck: Thyroid: + thyromegaly Respiratory: Auscultation: lungs clear to auscultation bilaterally, + rales and + wheezes Cardiovascular: Rate/Rhythm: regular rate and regular rhythm Gastrointestinal (Abdomen): normal bowel sounds, soft, nontender, no hepatosplenomegaly Neurologic: Speech / Cognition: normal cognition Results & Data ([facility]) Vital Signs (Past 12 Hours) Vital Signs Temp Pulse Pulse Resp BP Pulse Ox O2 Del Method 01/29/22 07:18 68 01/29/22 07:09 36.4 C L 72 17 159/78 H 100 Nasal Cannula 01/29/22 07:06 70 18 100 Nasal Cannula 01/29/22 03:35 36.6 C 74 18 167/70 H 100 Nasal Cannula 01/28/22 23:00 36.8 C 76 20 169/79 H 100 Nasal Cannula O2 Flow Rate 01/29/22 07:18 01/29/22 07:09 3 01/29/22 07:06 2 01/29/22 03:35 2.0 01/28/22 23:00 2 Laboratory Results Laboratory Tests 01/29/22 05:46 Sodium 137 Potassium 4.9 Chloride 103 Carbon Dioxide 28 BUN 49 H Creatinine 4.51 H* D Glucose 113 H PG Care Time/CCT Total # of Minutes Spent Total Time Spent with Patient: Total time spent is greater than 50% in coordination of care (as documented) at patient's floor/unit and/or counseling patient: Coding Level of Care Code 76757 Subseq Hosp Care Lvl 3 Diagnoses End-stage renal disease on hemodialysis N18.6; Z99.2 Congestive cardiac failure I50.9 Anemia D64.9 RSV (respiratory syncytial virus pneumonia) J12.1
--- NOTE | 2022-01-29 11:41 | Discharge Summary ---
Date of Service January 29, 2022 Admission HPI Per Admitting Provider Patient is a 76-year-old female with history of end-stage renal disease on dialysis MWF, asthma, GERD, hypertension, dyslipidemia, LAUREN on CPAP, nocturnal hypoxemia, goiter s/p partial thyroidectomy and other medical problems presents with history of worsening shortness of breath associated with cough which has been gradually worsening especially over the past 2 to 3 days. Patient states having poor appetite associated with nausea for the last few months. Also states feeling tired and has been sleeping most of the day for the past 2 to 3 days. She has returned from [facility] 4 weeks ago. She was diagnosed to have COVID in October 2021. Reports significant dyspnea on exertion over the past 2 to 3 weeks. She has been having cough with clear expectoration but denies any hemoptysis and is associated with some chest heaviness. Patient is due for dialysis today and admits to have her last dialysis last week on Wednesday. Also reports chills, rhinitis and intermittent dizziness. She uses 2 L of suppl emental oxygen along with CPAP at bedtime. She has been using her inhalers for asthma regularly. She was found to be hypoxic, 86% on room air while in ED. Denies any history of palpitations, pedal edema, fall, head trauma, headache, change in vision, vomiting, abdominal pain, diarrhea, dysuria, sick contact, recent change in medications. Admission Exam Per Admitting Provider General Appearance:Moderately built and nourished, chronically appearing, no apparent distress Head: normocephalic, Atraumatic Eyes: normal inspection, EOMI Neck: supple, Trachea deviated, +R goiter Respiratory/Chest: Coarse breath sounds, B/L expiratory wheezes, basal Rales and occasional rhonchi, No accessory muscle use Cardiovascular: S1, S2, No murmur Abdomen/GI:Soft, Non tender, Bowel sounds present Extremities/Musculoskeletal:normal inspection, Trace edema Neurologic/Psych:AAOX3, grossly no focal neurological deficits Skin: normal color, warm Principal Diagnosis RSV pneumonia Discharge Exam Constitutional: + frail appearing, NAD Eyes: PERRL, conjunctivae normal, anicteric sclerae ENMT: external ear and nose normal, oropharynx normal Neck: Thyroid: + thyromegaly Respiratory: Auscultation: lungs clear to auscultation bilaterally Cardiovascular: Rate/Rhythm: regular rate and regular rhythm Gastrointestinal (Abdomen): normal bowel sounds, soft, nontender, no hepatosplenomegaly Neurologic: Speech / Cognition: normal cognition Discharge Data Allergies Allergy/AdvReac Type Severity Reaction Status Date / Time pollen extracts Allergy Mild sneezing, Verified 01/26/22 15:55 watery eyes No Known Drug Allergies Allergy Unknown Verified 01/26/22 15:55 Consultations 01/26/22 15:41 Consult Nephrology Routine ED Decision to Admit Stat 01/26/22 20:43 Consult Nephrology Routine Ordered Studies 01/26/22 12:53 CT angio chest PE protocol Stat Hospital Course (1) RSV (respiratory syncytial virus pneumonia): Acute on chronic Respiratory failure with hypoxia: Multifactorial: Volume overload, asthma exacerbation, RSV infection, chronic tracheal stenosis Suspected multifocal pneumonia --CTA:1. No definite evidence for a pulmonary embolus with limitations as described above. Cardiomegaly with mild pulmonary edema and trace bilateral pleural effusions. Patchy airspace opacities within the right upper lobe and right lower lobe. This could be due to a pneumonia or an alveolar component of the pulmonary edema. Decrease in size in the right thyroid goiter. However, there is progressive mass effect along the proximal trachea which now demonstrates 50% stenosis. Progression of the mediastinal lymphadenopathy. This could be reactive. Consider six-month chest CT follow-up to ensure stability/resolution. Diffuse bronchial wall thickening with partial opacification of the right lower lobe bronchi. --ED discussed with ENT Dr. Ramos, currently no indication for surgery (tracheal stenosis-seem to be chronic) --COVID, influenza screen negative ---Positive for RSV -- Volume status managed through dialysis Appreciate nephrology input - steroids discontinued, continue bronchodilators Continue home inhalers Oxygen support per protocol - abx discontinued as likely source of pneumonia is RSV and not likely superimposed bacteria infection Pulmonary hygiene HD per renal for fluid removal - 2 step done without need for ambulatory oxygen supplementation ESRD Appreciate Nephrology help Continue dialysis as per Nephrology Monitor volume status GERD Continue PPI Hypertension Continue home medication Dyslipidemia ON statin LAUREN Nocturnal hypoxia Chronic oxygen dependency on 2 L at bedtime on CPAP Goiter s/p partial thyroidectomy Tracheal stenosis CT as above DVT Px: Heparin SQ Code Status Full Code Disposition PT/OT prior discharge Total Time Total Time Spent Total Time Spent (In Minutes): 28 Total Time Includes: Examination of the Patient, Discharge Planning and Medication Reconciliation Discharge Plan Discharge Items Patient Disposition: Home - Self-Care Reason For Visit: ACUTE ON CHRONIC RESPIRATORY FAILURE Discharge Diagnosis: RSV pneumonia Activity: Resume your previous activity Non-emergency contact: Primary Care Provider Call non-emergency contact if: you have any medication questions and your symptoms worsen Follow-up/Referrals: Alberto Yuen MD [Primary Care Provider] - (Date & Time 02/03/2022 3:00 PM Provider Cheryl [facility] ) Diet: Dialysis Renal Addtl Attending Provider Instructions: You were admitted for shortness of breath and inability to tolerate food by mouth due to RSV infection and likely pneumonia. You were treated with steroids and antibiotics initially but had improvement so these were not continued. You also received dialysis while you were here in the hospital and fluid was removed. With treatment, your symptoms improved and you were able to tolerate food. You were also walked with respiratory therapist and determined you did not need portable oxygen on discharge. You should follow up with your primary care doctor and continue your normal dialysis schedule. Pending Studies at Discharge: No Stand-Alone Forms: [facility], Smoking Cessation Medications and DC Order Prescriptions: New benzonatate 200 mg capsule 200 mg PO TID PRN (Reason: cough) Qty: 30 0RF Continued atorvastatin 40 mg tablet 40 mg PO QAM betaxolol 10 mg tablet 10 mg PO QAM Qty: 90 montelukast [Singulair] 10 mg tablet 10 mg PO HS pantoprazole 40 mg tablet,delayed release (DR/EC) 20 mg PO DAILYBB lidocaine-prilocaine 2.5-2.5 % cream See Rx Instructions topical .COMPLEX Rx Instructions: apply small amount to access site (AVF) 1 to 2 hours before dialysis. cover with occlusive dressing (SARAN WRAP) polyethylene glycol 3350 [Miralax] 17 gram powder in packet 17 g PO BID PRN (Reason: Constipation) Rx Instructions: pt uses prn nitroglycerin [Nitrostat] 0.4 mg tablet, sublingual 0.4 mg sublingual Q5M PRN (Reason: Chest Pain) Rx Instructions: do not exceed 3 doses per episode famotidine 20 mg tablet 20 mg PO AMHS triamcinolone acetonide 0.025 % lotion 1 applic topical BID PRN (Reason: Rash) Trelegy Ellipta 100-62.5-25 mcg Blister With Device 1 inh INHALATION QAM Rx Instructions: rinse after use aspirin 81 mg Tablet,Delayed Release (Dr/Ec) 81 mg PO QAM isosorbide mononitrate 30 mg tablet extended release 24 hr 30 mg PO QAM fluticasone propionate 50 mcg/actuation spray,suspension 2 spray INTRANASAL QAM albuterol sulfate 1.25 mg/3 mL Solution For Nebulization 1.25 mg INHALATION Q4H PRN (Reason: Wheezing) albuterol sulfate [Ventolin HFA] 90 mcg/actuation HFA aerosol inhaler 2 puff INHALATION Q6 PRN (Reason: Wheezing) sevelamer carbonate 800 mg tablet 1,600 mg PO TIDM ondansetron HCl 4 mg tablet 4 mg PO Q8 PRN (Reason: Nausea) Rx Instructions: TAKE ONE TABLET BY MOUTH TWICE DAILY NEEDED FOR NAUSEA / VOMITING ProRenal 8 mg iron-800 mcg-1,000 unit tablet 1 tab PO DAILY amlodipine 5 mg tablet 5 mg PO QAM Discharge Orders: Discharge Order (Routine); Ordered 01/29/22 Ordered By: Caleb Martin Admission Data Admit Date/Time: 01/26/22 17:21 Attending Provider: Caleb Martin Admit Provider: Hieu Rocha Primary Care Provider: Alberto Yuen Other Providers: Nick Schrader ; Georgia Gamble Other Interventions: Discharge Summary Assessment (RN) Last Done: 01/29/22 10:45
== END 2022-01-29 12:34 | disposition home or self-care (01) | DRG 193 ==
LOC: ED 12:20 → 4W 17:15 → SUATTDRO 17:21

== ENCOUNTER 2022-09-08 06:39 | Inpatient (IN) ==
--- NOTE | 2022-06-15 15:56 | PAT Medication Instructions ---
Medication Instructions Date of Service June 15, 2022 Home Medications Medication Instructions Recorded benzonatate 200 mg capsule 200 mg PO TID PRN cough #30 caps 01/29/22 atorvastatin 40 mg tablet 40 mg PO HS betaxolol 10 mg tablet 10 mg PO QAM montelukast 10 mg tablet (Singulair) 10 mg PO famotidine 20 mg tablet 20 mg PO AMHS lidocaine-prilocaine 2.5 %-2.5 % topical cream See Rx Instructions topical .COMPLEX nitroglycerin 0.4 mg sublingual tablet (Nitrostat) 0.4 mg sublingual Q5M PRN Chest Pain pantoprazole 40 mg tablet,delayed release 20 mg PO DAILYBB polyethylene glycol 3350 17 gram oral powder packet (Miralax) 17 g PO BID PRN Constipation triamcinolone acetonide 0.025 % lotion 1 applic topical BID PRN Rash fluticasone fur. 100 mcg-umeclid 62.5 mcg-vilant 25 mcg inhalat.powder (Trelegy Ellipta) 1 inh inhalation QAM albuterol sulfate 90 mcg/actuation aerosol inhaler (Ventolin HFA) 2 puff inhalation Q6 PRN Wheezing aspirin 81 mg tablet,delayed release 81 mg PO QAM fluticasone propionate 50 mcg/actuation nasal spray,suspension 2 spray intranasal QAM isosorbide mononitrate 30 mg tablet,extended release 24 hr 30 mg PO QAM ondansetron HCl 4 mg tablet 4 mg PO Q8 PRN Nausea sevelamer carbonate 800 mg tablet 1,600 mg PO TIDM vit B complx, C-iron 8 mg-folic acid 800 mcg-D3 1,000 unit-zinc tablet (ProRenal) 1 tab PO QAM benzonatate 200 mg capsule 200 mg PO TID PRN cough amlodipine 2.5 mg tablet 2.5 mg PO QAM Continue as directed nitroglycerin 0.4 mg sublingual tablet (Nitrostat) 0.4 mg sublingual Q5M PRN Chest Pain (if needed) lidocaine-prilocaine 2.5 %-2.5 % topical cream See Rx Instructions topical .COMPLEX (prior to access for dialysis) STOP taking 24 hours before surgery triamcinolone acetonide 0.025 % lotion 1 applic topical BID PRN Rash DO NOT take the morning of surgery polyethylene glycol 3350 17 gram oral powder packet (Miralax) 17 g PO BID PRN Constipation sevelamer carbonate 800 mg tablet 1,600 mg PO TIDM vit B complx, C-iron 8 mg-folic acid 800 mcg-D3 1,000 unit-zinc tablet (ProRenal) 1 tab PO QAM benzonatate 200 mg capsule 200 mg PO TID PRN cough Take morning of surgery With a small sip of water, OTHERWISE NOTHING TO EAT OR DRINK AFTER MIDNIGHT: betaxolol 10 mg tablet 10 mg PO QAM famotidine 20 mg tablet 20 mg PO AMHS pantoprazole 40 mg tablet,delayed release 20 mg PO DAILYBB fluticasone fur. 100 mcg-umeclid 62.5 mcg-vilant 25 mcg inhalat.powder (Trelegy Ellipta) 1 inh inhalation QAM albuterol sulfate 90 mcg/actuation aerosol inhaler (Ventolin HFA) 2 puff inhalation Q6 PRN Wheezing (use if needed; please bring rescue inhaler with you to hospital day of surgery if possible) aspirin 81 mg tablet,delayed release 81 mg PO QAM (continue as normal unless told otherwise by surgeon) fluticasone propionate 50 mcg/actuation nasal spray,suspension 2 spray intranasal QAM isosorbide mononitrate 30 mg tablet,extended release 24 hr 30 mg PO QAM ondansetron HCl 4 mg tablet 4 mg PO Q8 PRN Nausea (if needed) amlodipine 2.5 mg tablet 2.5 mg PO QAM Take evening before surgery atorvastatin 40 mg tablet 40 mg PO HS montelukast 10 mg tablet (Singulair) 10 mg PO famotidine 20 mg tablet 20 mg PO AMHS polyethylene glycol 3350 17 gram oral powder packet (Miralax) 17 g PO BID PRN Constipation (if needed) albuterol sulfate 90 mcg/actuation aerosol inhaler (Ventolin HFA) 2 puff inhalation Q6 PRN Wheezing (if needed) ondansetron HCl 4 mg tablet 4 mg PO Q8 PRN Nausea (if needed) sevelamer carbonate 800 mg tablet 1,600 mg PO TIDM benzonatate 200 mg capsule 200 mg PO TID PRN cough (if needed) Other Notes If you have any questions please call us at [phone] or [phone] or [phone] or [phone]
--- NOTE | 2022-06-23 10:18 | Anesthesiology Consultation ---
Date of Service June 23, 2022 Assessment & Plan (1) Encounter for pre-operative examination: - Check BSG AM DOS - Check BMP AM DOS- Dialysis MWF (DOS on a Wednesday) - LUE limb restriction: LUE AVF - Outpatient joint assessment: Pt currently scheduled for inpatient pathway. If surgeon requests review for outpatient joint pathway, patient is not recommended candidate for outpatient joint program from anesthesia standpoint. - COVID screening: Per assessment on 06/23: No known COVID-19 positive contacts or current COVID-19 related symptoms. Travel screen negative. Patient vaccinated. At surgeon discretion if preop Covid testing being done. - Aortic stenosis: Mild aortic stenosis (ASHLI 1.3-1.4cm2, MG 15.3mmhg) per 03/2022 echo. - PCP visit (05/05/22): Visit for medicare for wheelchair/ambulatory dysfunction. - Anesthesia concern: Patient does not wish to have neuraxial anesthesia if possible. Reviewed neuraxial anesthesia vs GA. Advised patient to discuss options further AM DOS. - Cardiology visit (04/21/22): note scanned into [employer] after/under 04/2022 PCP visit note. "Functional capacity limited by chronic knee pain. She has received multiple injections over the years. Scheduled for evaluation with Dr. Jarvis later this month. Considering knee replacement... Continue current cardiovascular medications including atorvastatin, aspirin, isosorbide monohydrate, and amlodipine. Patient is considered moderate perioperative cardiovascular risk. If she is planning to proceed with knee replacement, I would recommend further risk stratification with Lexiscan nuclear stress testing due to limited activity/mobility. Repeat resting 2D transthoracic echocardiogram in 1 year for surveillance of aortic stenosis" > Fili at cardiology office made aware of now scheduled DOS- he states they will do their best to schedule stress test prior to DOS but unsure if they will be able to do so. Malissa at surgeon's office made aware. Awaiting cardiology-recommended stress test/final recommendations ([facility]- stress test date TBD). Chart Review Chart Review: Patient seen in Pre Admission Testing Teaching & Discussion Pre-Anesthesia Teaching/Discussion Notes: Instructed NPO after midnight before surgery,except medications with 15 cc of water. Medication instructions provided according to the PAT guidelines. History Surgery Operation Date: 07/14/22 08:50 Proposed Procedures p Right Total Knee Arthroplasty - Benigno Jarvis MD Height/Weight Height: 5 ft 2 in Weight: 69.4 kg Allergies Allergy/AdvReac Type Severity Reaction Status Date / Time pollen extracts Allergy Mild sneezing, Verified 06/15/22 13:17 watery eyes No Known Drug Allergies Allergy Unknown Verified 06/15/22 13:17 Medications Home Medications Medication Instructions Recorded Confirmed Last Taken atorvastatin 40 mg tablet 40 mg PO HS 11/10/18 06/15/22 06/11/21 betaxolol 10 mg tablet 10 mg PO QAM #90 tabs 11/10/18 06/15/22 11/19/21 montelukast 10 mg tablet 10 mg PO HS 11/17/18 06/15/22 10/14/20 (Singulair) famotidine 20 mg tablet 20 mg PO AMHS 05/28/21 06/15/22 11/19/21 lidocaine-prilocaine 2.5 %-2.5 % See Rx Instructions topical 05/28/21 06/15/22 Unknown topical cream .COMPLEX nitroglycerin 0.4 mg sublingual 0.4 mg sublingual Q5M PRN Chest 05/28/21 06/15/22 Unknown tablet (Nitrostat) Pain pantoprazole 40 mg tablet,delayed 20 mg PO DAILYBB 05/28/21 06/15/22 11/19/21 release polyethylene glycol 3350 17 gram 17 g PO BID PRN Constipation 05/28/21 06/15/22 Unknown oral powder packet (Miralax) triamcinolone acetonide 0.025 % 1 applic topical BID PRN Rash 05/28/21 06/15/22 Unknown lotion fluticasone fur. 100 mcg-umeclid 1 inh inhalation QAM 10/14/21 06/15/22 11/20/21 62.5 mcg-vilant 25 mcg inhalat.powder (Trelegy Ellipta) albuterol sulfate 90 mcg/actuation 2 puff inhalation Q6 PRN Wheezing 01/26/22 06/15/22 Unknown aerosol inhaler (Ventolin HFA) aspirin 81 mg tablet,delayed 81 mg PO QAM 01/26/22 06/15/22 Unknown release fluticasone propionate 50 2 spray intranasal QAM 01/26/22 06/15/22 Unknown mcg/actuation nasal spray,suspension isosorbide mononitrate 30 mg 30 mg PO QAM 01/26/22 06/15/22 Unknown tablet,extended release 24 hr ondansetron HCl 4 mg tablet 4 mg PO Q8 PRN Nausea 01/26/22 06/15/22 Unknown sevelamer carbonate 800 mg tablet 1,600 mg PO TIDM 01/26/22 06/15/22 Unknown vit B complx, C-iron 8 mg-folic 1 tab PO QAM 01/26/22 06/15/22 Unknown acid 800 mcg-D3 1,000 unit-zinc tablet (ProRenal) benzonatate 200 mg capsule 200 mg PO TID PRN cough #30 caps 01/29/22 06/15/22 Unknown amlodipine 2.5 mg tablet 2.5 mg PO QAM 06/15/22 06/15/22 Unknown Past Medical History Medical History Aortic stenosis Mild aortic stenosis (ASHLI 1.3-1.4cm2, MG 15.3mmhg) per 03/2022 echo Asthma, moderate persistent AV fistula LUE Chronic anemia Hx iron infusions Chronic anemia Diabetes mellitus diet controlled Disorder of left rotator cuff End-stage renal disease on hemodialysis MWF ([facility]) GERD (gastroesophageal reflux disease) Gout History of COVID-19 Most recent 10/2021 ([facility])- symptoms resolved Hyperlipidemia Hypertension Osteoarthritis of knees, bilateral RSV (respiratory syncytial virus pneumonia) Sleep apnea CPAP + 2L HS Exercise / Class Metabolic Activity III < 4 Walking/Shop/Light housework (uses cane/wheelchair) Past Family History Family History Daughter Cancer Breast Daughter Cancer Breast Daughter Hypertension Daughter Hypertension Father Diabetes Hypertension Mother Hypertension Brother Diabetes Brother Diabetes Sister Diabetes Sister Diabetes Sister Hypertension Sister Hypertension Other No family history of adverse response to anesthesia Past Surgical History Surgical History H/O partial thyroidectomy H/O: hysterectomy SANDRA BSO History of appendectomy History of cardiac cath 2017 ([facility])- no stents History of cataract surgery History of cholecystectomy History of colonoscopy History of esophagogastroduodenoscopy (EGD) 10/2021 History of lumbar surgery History of oral surgery salivary gland surgery History of tooth extraction all teeth removed S/P arteriovenous (AV) fistula creation Status post biopsy of kidney kidney disease Past Anesthesia History No Hx of Anesthesia Complications and No Family Hx of Anesthesia Complications History of PONV No Hx of PONV and No Hx of Motion Sickness Social History Smoking Status: Never smoker Do You Dip or Chew Tobacco: No Hx Alcohol Use: No Hx Substance Use: No substance use type: does not use Review of Systems Patient denies chest pain, shortness of breath, fever, chills, cough, wheezing, palpitations. Physical Exam Vital Signs VITALS BP 148/64 P 56 TEMP 98.0 SP02 96%RA RESP 16 PHYSICAL Full cervical extension range of motion. Full TMJ range of motion. TMD 3 finger breaths Mallampati Score 3 (small oral opening) Dentition: intact, upper front repaired teeth Lungs: clear throughout to auscultation Cardiac: regular rate and rhythm, III/ systolic murmur + carotid radiation Spine: normal Extremities: trace LE edema Lab Results Anesthesia Preop Results Results Anesthesia Widget: WBC 4.64 K/ul (4.8-10.8) L 06/23/22 Hgb 10.4 g/dl (12.0-16.0) L 06/23/22 Hct 33.8 % (37.0-47.0) L 06/23/22 Plt 143 K/uL (130-400) 06/23/22 Na 137 mmol/L (136-145) 06/23/22 K 4.8 mmol/L (3.5-5.1) 06/23/22 Cl 94 mmol/L (98-107) L 06/23/22 CO2 35 mmol/L (21-32) H 06/23/22 BUN 45 mg/dl (6-23) H 06/23/22 Creat 5.54 mg/dl (0.6-1.2) H* 06/23/22 Glucose Level 75 mg/dl (70-99(Fasting)) 06/23/22 PT 10.9 Seconds (9.0-12.0) 06/23/22 PTT 29.2 Seconds (21.0-31.0) 06/23/22 INR 1.0 (0.9-1.1) 06/23/22 HA1c 5.0 (<5.7) 06/23/22 Blood Type O Positive 06/23/22 Antibody Screen NEGATIVE 06/23/22 Testing Electrocardiogram Date: 04/21/22 Normal sinus rhythm at 60 bpm. LAFB. High QRS voltage may be normal variant or due to LVE. Chest X-Ray Date: 06/23/22 FINDINGS: PA and lateral chest radiographs are compared to study dated 01/28/2012 and correlated with chest CT dated 01/26/2022. There is a large hiatal hernia. The heart is enlarged noting atherosclerotic calcification of the thoracic aorta. The pulmonary vasculature is noncongested. Chronic interstitial thickening is similar to previous. There is bibasilar scarring/atelectasis. Additional foci of parenchymal scarring are seen throughout both lungs. No airspace consolidation typical for pneumonia or large pleural effusion is identified. There is no pneumothorax. The skeletal structures are osteopenic. The bony thorax appears intact. Degenerative change and scoliosis is noted in the spine. IMPRESSION: Cardiomegaly with no acute cardiopulmonary abnormality identified. Large hiatal hernia. Echocardiogram Date: 04/09/22 EF 60%. No RWMA. Mild cLVH. Grade 2 DD. Mild AV sclerosis. Mild AR/TR/MR. Severe LAE. Pulmonary HTN present. PASP 50mmhg. Mild aortic stenosis (ASHLI 1.3-1.4cm2, MG 15.3mmhg). Stress Test Date: 08/08/19 Type: DSE Stress echo was negative for inducible ischemia. 107% MPHR. Rest echo: LVEF 55-59%. Moderately increased concentric LV wall thickness. Grade 2 diastolic dysfunction. Mild AV sclerosis. Mild AR. Small loculated posterior and lateral pericardial effusion. Cardiac Catheterization Date: 04/23/17 Normal coronary arteries. COVID-19 Risk Screen Screening Information COVID-19 Screen Date: 06/23/22 Exposure 21 Days Family/Household +COVID Last 21 Days: No Exposure 10 Days Any COVID Exposure Last 10 Days: No Symptoms Last 10 Days Experienced COVID Sx Last 10 Days: No + COVID 0-90 Days COVID + in Last 0-90 Days: No
--- NOTE | 2022-07-10 09:20 | History and Physical Report ---
CHIEF COMPLAINT: Bilateral knee pain and discomfort, right side greater than left. HISTORY OF PRESENT ILLNESS: A 76-year-old white female from [place], who presents for surgical treatment of her right knee. S he has got a long history of knee problems, this has gradually gotten worse over time. She has been through extensive conservative treatment in the past. She would now like to just have her knee fixed . The right knee hurts more than the left. It is global pain. The more she is on it, the more it h urts. PAST MEDICAL HISTORY: Significant for: 1. Chronic kidney failure, on hemodialysis. 2. Gastroesophageal reflux disease. 3. Gout. 4. Diabetes. 5. Chronic anemia. 6. Asthma. 7. History of benign spinal cord tumor. 8. Elevated cholesterol. 9. Hypertension. 10. Home oxygen requirement at night. 11. Sleep apnea. PAST SURGICAL HISTORY: Includes: 1. Partial thyroidectomy. 2. Hysterectomy. 3. Appendectomy. 4. Back surgery. 5. Cardiac catheterization. 6. Cataract surgery. 7. Cholecystectomy. 8. Colonoscopy. 9. EGD. 10. Hysterectomy. 11. Oral surgery. 12. Partial thyroidectomy. 13. AV fistula placement. 14. Kidney biopsy. ALLERGIES: None. CURRENT MEDICATIONS: 1. Albuterol. 2. Ventolin inhaler. 3. Amlodipine. 4. Aspirin. 5. Atorvastatin. 6. Benzonatate. 7. Betaxolol. 8. Famotidine. 9. Nasal spray. 10. Isosorbide. 11. Singulair. 12. Nitrostat. 13. Ondansetron. 14. Propranolol. 15. ProRenal vitamin. 16. Topical triamcinolone. SOCIAL HISTORY: A 76-year-old white female. She lives with her daughter and son-in-law in [facility]. Her daughter is a physician. FAMILY HISTORY: Noncontributory. REVIEW OF SYSTEMS: As above. She is on chronic dialysis for chronic kidney disease. No chest pain or shortness of breath. PHYSICAL EXAMINATION: GENERAL: Shows a pleasant middle-aged female. Looks to be in reasonably good health. HEENT: Benign. NECK: Supple. No lymphadenopathy. LUNGS: Clear to auscultation. HEART: Regular rate and rhythm. ABDOMEN: Soft, nontender, nondistended. EXTREMITIES: Grossly neurovascularly intact except as follows. Examination of both knees revealed patient walks with a fairly slow gait. Moderate soft tissue envel ope. Examination of the right knee reveals moderate soft tissue envelope. Mildly diffusely tender. Range of motion is near full extension to 125 degrees of flexion. No particular pain with hip motio n. X-RAYS: X-rays of the right knee reviewed. It shows advanced knee DJD. She has got joint space los s. She has got chondrocalcinosis. Got similar findings in the left knee. ASSESSMENT: A 76-year-old white female with advanced bilateral knee degenerative joint disease. She has failed conservative treatment. She would like to proceed with right knee replacement. She is o n dialysis. Multiple other medical problems as well. PLAN: We are going to take her to the operating room and do right total knee replacement. The risks and benefits of this procedure were explained to the patient and include but not limited to DVT, PE, , infection, neurological injury, vascular injury, bleeding problem, pain, limited range of mot ion, stiffness, failure to relieve her symptoms, incomplete relief of symptoms, need for further surg molly in the future, etc. The patient understands and desires to proceed. Informed consent was obtain ed. She did get a workup and she does have a stress test today. Pending that, as long as that is accepta ble, we will proceed with knee replacement. She is planning to stay in the hospital overnight. She may need dialysis in the hospital. She is planning to be discharged to [facility]. Will use in sulin sliding scale coverage in the hospital. Job ID: [id number]
--- NOTE | 2022-09-05 09:15 | History & Physical Report ---
Date of Service September 05, 2022 Assessment & Plan (1) Bilateral primary osteoarthritis of knee: Treatment options were explained to the patient extensively. She is now ready to proceed with knee replacement surgery in the right side. We will proceed with right total knee replacement for the risk meant this procedure explained and she understands. She has been seen by her primary care doctor Dr. Yuen as well as Dr. Erickson her lead assembler and cleared for surgery. She had a negative stress test. She will need dialysis. She is also diabetic and will need insulin/sliding scale coverage. Plan on DVT prophylaxis including aspirin twice a day as well as teds and SCDs. She is hoping to go to [facility] for a brief rehab stay postoperatively. History of Present Illness Chief Complaint: . Bilateral knee pain discomfort right side greater than the left. Primary Care Provider: Alberto Yuen MD . Patient 76-year-old female from [place] who presents now for surgical treatment of her right knee. She got a long history of knee problems. She describes just global pain and discomfort which is increased with ambulation. She has had extensive treatment treatment in the past which has become less successful. She feels like she is done with conservative care and would like to have her right knee replaced. She lives with her daughter who is a physician. She does have multiple medical comorbidities including chronic renal failure and on dialysis. As she has been seen by Dr. Erickson her lead assembler had a stress test which was negative for ischemia. She now presents for surgical treatment specifically. Allergies Allergy/AdvReac Type Severity Reaction Status Date / Time pollen extracts Allergy Mild sneezing, Verified 09/04/22 14:38 watery eyes No Known Drug Allergies Allergy Unknown Verified 09/04/22 14:38 Home Medications Medication Instructions Recorded Confirmed Type atorvastatin 40 mg tablet 40 mg PO HS 11/10/18 09/04/22 History betaxolol 10 mg tablet 10 mg PO QAM #90 tabs 11/10/18 09/04/22 History montelukast 10 mg tablet 10 mg PO HS 11/17/18 09/04/22 History (Singulair) famotidine 20 mg tablet 20 mg PO AMHS 05/28/21 09/04/22 History lidocaine-prilocaine 2.5 %-2.5 % See Rx Instructions topical 05/28/21 09/04/22 History topical cream .COMPLEX nitroglycerin 0.4 mg sublingual 0.4 mg sublingual Q5M PRN Chest 05/28/21 09/04/22 History tablet (Nitrostat) Pain pantoprazole 40 mg tablet,delayed 20 mg PO DAILYBB 05/28/21 09/04/22 History release polyethylene glycol 3350 17 gram 17 g PO BID PRN Constipation 05/28/21 09/04/22 History oral powder packet (Miralax) triamcinolone acetonide 0.025 % 1 applic topical BID PRN Rash 05/28/21 09/04/22 History lotion fluticasone fur. 100 mcg-umeclid 1 inh inhalation QAM 10/14/21 09/04/22 History 62.5 mcg-vilant 25 mcg inhalat.powder (Trelegy Ellipta) albuterol sulfate 90 mcg/actuation 2 puff inhalation Q6 PRN Wheezing 01/26/22 09/04/22 History aerosol inhaler (Ventolin HFA) aspirin 81 mg tablet,delayed 81 mg PO QAM 01/26/22 09/04/22 History release fluticasone propionate 50 2 spray intranasal QAM PRN Allergy 01/26/22 09/04/22 History mcg/actuation nasal Symptoms spray,suspension isosorbide mononitrate 30 mg 30 mg PO QAM 01/26/22 09/04/22 History tablet,extended release 24 hr ondansetron HCl 4 mg tablet 4 mg PO Q8 PRN Nausea 01/26/22 09/04/22 History sevelamer carbonate 800 mg tablet 1,600 mg PO TIDM 01/26/22 09/04/22 History vit B complx, C-iron 8 mg-folic 1 tab PO QAM 01/26/22 09/04/22 History acid 800 mcg-D3 1,000 unit-zinc tablet (ProRenal) amlodipine 2.5 mg tablet 2.5 mg PO QAM 06/15/22 09/04/22 History Past Med/Surg History Medical History (Updated 09/05/22 @ 09:14 by Benigno Jarvis MD) Aortic stenosis Mild aortic stenosis (ASHLI 1.3-1.4cm2, MG 15.3mmhg) per 03/2022 echo Asthma, moderate persistent AV fistula LUE Bilateral primary osteoarthritis of knee Chronic anemia Hx iron infusions Chronic anemia Diabetes mellitus diet controlled Disorder of left rotator cuff End-stage renal disease on hemodialysis MWF ([facility]) GERD (gastroesophageal reflux disease) Gout History of COVID-19 Most recent 10/2021 ([facility])- symptoms resolved Hyperlipidemia Hypertension Osteoarthritis of knees, bilateral RSV (respiratory syncytial virus pneumonia) Sleep apnea CPAP + 2L HS Surgical History H/O partial thyroidectomy H/O: hysterectomy SANDRA BSO History of appendectomy History of cardiac cath 2017 ([facility])- no stents History of cataract surgery History of cholecystectomy History of colonoscopy History of esophagogastroduodenoscopy (EGD) 10/2021 History of lumbar surgery History of oral surgery salivary gland surgery History of tooth extraction all teeth removed S/P arteriovenous (AV) fistula creation Status post biopsy of kidney kidney disease Family History Daughter Cancer Breast Daughter Cancer Breast Daughter Hypertension Daughter Hypertension Father Diabetes Hypertension Mother Hypertension Brother Diabetes Brother Diabetes Sister Diabetes Sister Diabetes Sister Hypertension Sister Hypertension Other No family history of adverse response to anesthesia Social History Smoking Status: Never smoker Second Hand Exposure: No; Do You Dip or Chew Tobacco: No; Hx Alcohol Use: No Hx Substance Use: No Preferred Language: Spanish Communication Ability: Effective Communication Ability Comment: daughter states her mother can read/write/understand [employer] Required: No Beliefs That Will Affect Care: None marital status: / Current Living Situation: Family Current Living Situation Comment: Lives with daughter Feels Safe at Home: Yes Assistive Devices: CPAP, Glasses, Oxygen - at Night and Walker Review of Systems All systems reviewed & are unremarkable except as noted in HPI & below. Physical Exam . Physical examination reveals a pleasant middle-age female. She walks with a fairly slow gait. She had moderate soft tissue envelope around her knees. Examination of the right knee reveals patient to walks independently. A moderate soft tissue envelope. She is diffusely tender anywhere around her knee. Not a lot of swelling. Range of motion is near full extension to 125 degrees of flexion. No particular pain with hip motion. No instability. Respiratory normal respiratory effort, lungs clear to auscultation Cardiovascular RRR, no murmur, no edema Gastrointestinal (Abdomen) normal bowel sounds, soft, nontender, no hepatosplenomegaly Results & Data Results & Data Laboratory Results . Diagnostic Findings . X-rays of the right knee reviewed. Shows advanced bilateral knee DJD with chondrocalcinosis. Fairly extensive disease in both compartments of the knee a little bit worse in the lateral side than the right. Diffuse osteopenia. She got patellofemoral arthritis as well. PG Care Time/CCT Total # of Minutes Spent Total Time Spent with Patient: Total time spent is greater than 50% in coordination of care (as documented) at patient's floor/unit and/or counseling patient: Coding Level of Care Code None Diagnoses Bilateral primary osteoarthritis of knee M17.0
[~2022-09-08 06:39] MED LIST changes: +ACETAMINOPHEN 500 MG TAB PO SCH; -ALBUAER19 INH; -AMLO-110 PO; -ASPI81TA28 PO; -BISO10TA4 PO; -BRIM0.15 OPB; +BUPIVACAINE 0.5 % 5 MG/1 ML PF 10ML VIAL ONE; +BUPIVACAINE LIPOSOME/PF 266 MG, BUPIVACAINE/EPINEPHRINE 50 ML, SODIUM CHLORIDE 0.9% PF ... INFIL SCH; -CHOL1TAB42 PO; +CeleBREX 200 MG CAP PO SCH; -DOCU100C31 PO; +EPINEPHrine INJ 1 MG/ML AMP ONE; +FAMOTIDINE 20 MG TAB PO SCH; -FLUT115A INH; -HYDR-4717 PO; -ISOS60TA25 PO; -LPT/40 PO; +LR 60ML/HR IV SCH; +METOCLOPRAMIDE HCL 10 MG TABLET PO SCH; -NTRGSL/4 UT; -OMEP40CA PO; -ONDA8TAB7 PO; +ROPIVACAINE 0.5% 5 MG/ML 30 ML VIAL ONE; +SODIUM CHLORIDE 0.9% 1000ML IV SCH; +TRANEXAMIC ACID 1,000 MG **IV Intra-op IV SCH; -VITAMIN C PO; +ceFAZolin 2000MG 2,000 MG/15 ML SYR IV SCH
--- NOTE | 2022-09-08 06:56 | History & Physical Bridge Note ---
Date of Service September 08, 2022 History & Physical Bridge Note I have examined the patient, reviewed the History & Physical and in the interval since the performance of the History & Physical I have noted the following changes of clinical significance: no changes noted
[2022-09-08 08:04] LABS: BUN Creatinine Ratio 6.5 (10-20); Calcium 8.6 mg/dl (8.6-10.3); Creatinine Clr Calc Pharmacy 8.5 ml/min; Est GFR (African American) 8.8 ml/min; Est GFR (Non-African American) 7.6 ml/min; Potassium 4.9 mmol/L (3.5-5.1)
[2022-09-08] MEDS ORDERED: PROPOFOL IV EMULSION 10 MG/ML 20 ML VIAL IV ONE (08:47)
[2022-09-08] MEDS ORDERED: fentaNYL citrate PF 100 MCG/2 ML VIAL ONE ×2 (08:47→12:03)
[2022-09-08] MEDS ORDERED: BUPIVACAINE/EPINEPHRINE 0.25% 1:200,000 30 ML VIAL ONE (09:11)
[2022-09-08] MEDS ORDERED: BUPIVACAINE LIPOSOME 1.3% 266 MG/20 ML VIAL ONE (09:11)
[2022-09-08] MEDS ORDERED: SODIUM CHLORIDE 0.9% PF INJ 10 ML VIAL ONE (09:11)
[2022-09-08] MEDS ORDERED: SODIUM CHLORIDE 0.9% PF 50 ML VIAL ONE (09:20)
[2022-09-08] MEDS ORDERED: ONDANSETRON INJ 2 MG/ML 2 ML VIAL ONE ×2 (10:55→11:28)
[2022-09-08] MEDS ORDERED: PHENYLEPHRINE 100MCG/ML 5ML SYR ONE (10:55)
[2022-09-08] MEDS ORDERED: GLYCOPYRROLATE 0.2 MG/ML VIAL ONE (10:57)
[2022-09-08] MEDS ORDERED: NEOSTIGMINE METHYLSULFATE 1 MG/ML 10ML VIAL ONE (10:57)
--- NOTE | 2022-09-08 11:24 | Operative Report ---
PG Post Operative Report Pre & Post Diagnosis Operation Date: 09/08/22 08:40 Pre-Op Diagnosis: DJD Knee Right Post-Op Diagnosis: DJD Knee Right I identified the patient and participated in the time-out.: Yes Procedure Operation Date: 09/08/22 08:40 Actual Procedures p Right Total Knee Arthroplasty(Right) - Benigno Jarvis MD Surgeon Benigno Jarvis MD Funnel Coater Abdon Ko PA-C Estimated Blood Loss 50 Findings Consistent with Post-Op Diagnosis Operative findings revealed erosive arthritis of the primarily the lateral and patellofemoral compartments. She had extensive synovitis and erosive changes and destruction of the patellofemoral as well as the lateral compartment. She had a valgus deformity to her knee. Diffuse osteopenia. Specimens Right knee sent for pathology Anesthesia Type General Regional Complications none Disposition Accompanied Patient To Recovery: No Indications Patient is a 76-year-old female has a several year history of gradual progressive increased bilateral knee pain discomfort right side greater than left. She been through extensive conservative treatment which became less successful over time. X-rays show progressive knee arthritis. She elected proceed with total knee arthroplasty. Description of Procedure Operative implants consist of: 1 Biomet Vanguard size 62.5 right posterior stabilized femoral component. 2. Biomet size 63 tibial tray. 3. 14 mm posterior stabilized polyethylene insert. 4. 31 x 8 all poly patella. The patient was taken to the operating, identified, and placed on the operating table supine position protectors were properly padded. IV antibiotics tried by anesthesia team. An abductor canal block had provided in the holding area. A general anesthetic was implemented. A Driscoll catheter was placed. A right thigh turn was then placed in the right lower extremity was then prepped and draped in usual sterile fashion. The right leg was elevated exsanguinated with use of an Esmarch and the tourniquet was placed at 300 mmHg. An anterior approach to the right knee was then performed to longitudinal incision centered over the patella. Sharp dissection Through subcutaneous tissue down the extensor mechanism. Medial parapatellar arthrotomy incision was made. Some subperiosteal dissection was carried out medially. The fat pad was dissected from Neath patella tendon. Lateral patellofemoral ligament was released. Patella subluxated laterally and the knee was flexed. The osteophytes taken off distal femur P the ACL and PCL were then released from distal femur the tibia subluxated anteriorly. The external tibial alignment jig was then placed in the interface the tibia and adjusted 12 mm medially. Proximal tibial cut was made to move about 3 to 4 mm of bone from the medial side. The tibia was sized to a size 63. Attention drawn the femur. The distal femur examined the sharp drop with intramedullary canal was suction. A right 5 degree valgus cutting guide was placed. This femoral cutting block was pinned in place. Distal femoral cut was made to take an additional 3 mm of bone off distal femur. The femur was then sized to a size 62.5. The AP cutting block was pinned parallel to the epicondylar axis which was 3 degrees of external rotation. Anterior cut, anterior chamfer, posterior cut, posterior chamfer cuts were made. The box cutting guide was placed. The box cut was made. The knee was flexed. The remnants of the medial lateral menisci were excised. The osteophytes were taken off the posterior aspect of the femur. A trial femoral component was placed. The tibial tray was pinned in maximum external rotation and the drill and stem punch were used to create defect in proximal tibia for the tibial tray. The knee was then trialed and the 14 mm insert fit most appropriately. Attention drawn the patella. The patella was cleaned of all soft tissues. Patella thickness measured 18 mm in thickness and was cut down to 12. Sized to a size 31 patella. The lug holes were drilled for 31 patella. The lateral osteophytes removed. Patella button was placed. Knee was taken through range of motion patella tracked nicely with no thumbs test. Attention drawn to place the permanent components. All trial components were removed. Bone plug was placed in the distal femur limit blood loss. A double batch Palacos G cement was mixed. A Biomet Vanguard size 62.5 right posterior stabilized femoral component, size 63 tibial tray, a 14 mm pro stabilized polyethylene insert, and a 31 x 8 all Paller patella then cemented in place. Knee was brought out into full extension till cement hardened. Final cement check was then performed. The pericapsular tissues were injected with total of 100 cc of combination of 20 cc of Exparel, 30 cc normal saline, 50 cc of quarter percent Marcaine with epinephrine. Patient did receive 1 g tranexamic acid. The tourniquet was then let down for final tourniquet time of 53 minutes. Hemostasis reduced electrocautery. Extensor mechanism then closed with combination 1 PDS suture #1 Vicryl suture in a [id number] fashion. Extensor mechanism checked found to be intact and subcutaneous tissues then closed with 2 Dexon suture in buried interrupted fashion skin was closed skin tee. Leg was then cleaned and dried and sterile dressed with Xeroform, 4 fours, sterile cast padding, Riaz bandage were applied. Patient was then brought out of general anesthesia and transferred to the recovery room in stable condition. Patient tolerated procedure well and there were no complications. Abdon Ko, my physician case management assistant, was present for the entire procedure. His assistance was essential and required for appropriate patient positioning, prepping and draping, surgical exposure, performing the technical details of the operation, placement the implants, closure of the wound, and placement of the sterile bandage. I attest to the content of the Intraoperative Record and any orders documented therein. Any exceptions are noted below.
[2022-09-08] MEDS ORDERED: ROCURONIUM BROMIDE 10 MG/ML 5 ML VIAL IV ONE (11:45)
[2022-09-08] MEDS ORDERED: ATROPINE SULFATE 0.1 MG/ML 10ML SYR IV PRN (11:57)
[2022-09-08] MEDS ORDERED: ePHEDrine sulfate 50 MG/ML AMP IV PRN (11:57)
[2022-09-08] MEDS ORDERED: fentaNYL citrate PF 100 MCG/2 ML VIAL IV PRN (11:57)
[2022-09-08] MEDS ORDERED: ONDANSETRON INJ 2 MG/ML 2 ML VIAL IV PRN ×2 (11:57→12:30)
--- NOTE | 2022-09-08 12:03 | XRay Report ---
RIGHT KNEE 2 VIEWS History: Right total knee arthroplasty. Degenerative arthritis. Postop. FINDINGS: The patient is status post a right total knee arthroplasty. The hardware is intact. No frac ture or dislocation. Skin tee are in place. IMPRESSION: Right total knee arthroplasty. No evidence for hardware complication. ACT 112: Negative or not required by law. Electronically signed by: Guilherme Rome M.D. 09/08/2022 12:01 PM
[2022-09-08] MEDS ORDERED: NITROGLYCERIN SL 0.4 MG/TAB TAB SL PRN (12:30)
[2022-09-08] MEDS ORDERED: ALUMINUM/MAGNESIUM SUSP 30 ML UDC PO PRN (12:30)
[2022-09-08] MEDS ORDERED: NALOXONE HCL 0.4 MG/1 ML VIAL/CARP IV PRN (12:30)
[2022-09-08] MEDS ORDERED: SODIUM CHLORIDE 0.9% 1000ML 1,000 ML IV SCH (12:30)
[2022-09-08] MEDS ORDERED: MONTELUKAST SOD 5 MG CHEWABLE TAB PO PRN (12:30)
[2022-09-08] MEDS ORDERED: MAGNESIUM HYDROXIDE SUSP 30 ML UDC PO PRN (12:30)
[2022-09-08] MEDS ORDERED: FLUTICASONE PROPIONATE NA SPR 16 GM BTL NAE PRN (12:30)
[2022-09-08] MEDS ORDERED: ALBUTEROL HFA 8 GM INHALER INH PRN (12:30)
[2022-09-08] MEDS ORDERED: bisacodyL 10 MG SUPP PR PRN (12:30)
--- NOTE | 2022-09-08 14:02 | Cardiology Consultation ---
Date of Consultation September 08, 2022 Assessment & Plan (1) Atrial tachycardia: (2) Tachy-michele syndrome: (3) Valvular heart disease: (4) Hypertensive heart disease: (5) End-stage renal disease on hemodialysis: Plan IMPRESSION: Medically complex 76-year-old female with hypertensive heart and kidney disease. On hemodialysis every Wednesday, Wednesday, Wednesday. Mixed valvular heart disease including mild aortic stenosis, mild aortic, tricuspid, mitral, and pulmonary insufficiency, stable on most recent dobutamine stress echo outpatient, 07/2022. Patient now experiencing episodes of atrial tachycardia postop. She is asymptomatic. Borderline tachybradycardia syndrome given slower heart rates in the 50s at baseline. Patient on Betaxolol and did take it this am prior to surgery. Volume status compensated. PLAN: Recommend ongoing telemetry monitoring. Discontinue Betaxolol. Will give a dose of metoprolol succinate 25 mg this evening and reassess ongoing need in the am. Recommend investigating underlying causes of tachycardia including anemia, pos top pain, and underlying sleep apnea/nocturnal hypoxia, etc. CXR ordered to assess hypoxia. Continue all other cardiac medications as ordered. Case discussed with Dr. Adrian- will follow. Supervising Physician Co-Signing Physician Notes Patient seen and examined, chart and laboratory studies reviewed. Complex patient as well outlined above. Patient underwent right total knee replacement earlier today with patient observed to have intermittent tachycardia immediately intraoperatively and postoperatively. EKG reveals sinus tachycardia with intermittent multifocal atrial tachycardia asymptomatic from patient standpoint though associated with hypertension and hypoxia Possible inciting causes include anemia pain hypoxia and surrounding anesthesia medications and bupivacaine Plan as above: Discontinue betaxolol begin metoprolol succinate initially at 25 mg this evening to assure better rhythm control as well as treat diastolic heart failure Patient will need dialysis in a.m. with chest x-ray with vascular overload Continue to supplement oxygen, maintain pain control. Repeat EKG a.m. History of Present Illness Reason for Consultation: Postop tachycardia Requesting Physician: Toño baptiste Attending Physician: Benigno Jarvis MD History of Present Illness 76-year-old female who initially was admitted to [facility] today, 09/08, for a planned right total knee arthroplasty with Dr. Benigno Jarvis. Patient tolerated procedure well however postop experienced tachycardia. EKG showing sinus tachycardia, 113 bpm. Telemetry revealing short bursts of multifocal atrial tachycardia as well as sinus bradycardia. Patient is asymptomatic from a cardiac standpoint. No chest pain or shortness of breath. Denies palpitations. No orthopnea or PND. No lower extremity edema. She is having some mild pain post-op. Patient carries a history of hypertensive heart disease as well as end-stage renal disease on hemodialysis. For preoperative risk stratification she underwent a dobutamine stress echo on 08/04 which was negative for inducible ischemia. Resting echo demonstrated stable mild mixed valvular heart disease with preserved LV systolic function. Primary outpatient partnership manager: Dr. Erickson Past medical history: Labile hypertension with hypertensive heart disease Borderline control with intermittent hypotension on hemodialysis every Wednesday End-stage renal disease on hemodialysis History of chest discomfort associated with hypertensive urgency, PET/CT myocardial perfusion study without evidence of ischemia Mixed valvular heart disease including mild aortic stenosis, mild aortic, tricuspid, mitral, and pulmonic insufficiency with moderate pulmonary hypertension Hyperlipidemia Chronic fatigue Type 2 diabetes LAUREN Medication noncompliance Allergies Allergy/AdvReac Type Severity Reaction Status Date / Time pollen extracts Allergy Mild sneezing, Verified 09/08/22 07:18 watery eyes No Known Drug Allergies Allergy Unknown Verified 09/08/22 07:18 Home Medications Medication Instructions Recorded Confirmed Type atorvastatin 40 mg tablet 40 mg PO HS 11/10/18 09/08/22 History betaxolol 10 mg tablet 10 mg PO QAM #90 tabs 11/10/18 09/08/22 History famotidine 20 mg tablet 20 mg PO AMHS 05/28/21 09/08/22 History lidocaine-prilocaine 2.5 %-2.5 % See Rx Instructions topical 05/28/21 09/08/22 History topical cream .COMPLEX nitroglycerin 0.4 mg sublingual 0.4 mg sublingual Q5M PRN Chest 05/28/21 09/08/22 History tablet (Nitrostat) Pain pantoprazole 40 mg tablet,delayed 20 mg PO DAILYBB 05/28/21 09/08/22 History release polyethylene glycol 3350 17 gram 17 g PO BID PRN Constipation 05/28/21 09/08/22 History oral powder packet (Miralax) triamcinolone acetonide 0.025 % 1 applic topical BID PRN Rash 05/28/21 09/08/22 History lotion fluticasone fur. 100 mcg-umeclid 1 inh inhalation QAM 10/14/21 09/08/22 History 62.5 mcg-vilant 25 mcg inhalat.powder (Trelegy Ellipta) albuterol sulfate 90 mcg/actuation 2 puff inhalation Q6 PRN Wheezing 01/26/22 09/08/22 History aerosol inhaler (Ventolin HFA) aspirin 81 mg tablet,delayed 81 mg PO QAM 01/26/22 09/08/22 History release fluticasone propionate 50 2 spray intranasal QAM PRN Allergy 01/26/22 09/08/22 History mcg/actuation nasal Symptoms spray,suspension isosorbide mononitrate 30 mg 30 mg PO QAM 01/26/22 09/08/22 History tablet,extended release 24 hr ondansetron HCl 4 mg tablet 4 mg PO Q8 PRN Nausea 01/26/22 09/08/22 History sevelamer carbonate 800 mg tablet 1,600 mg PO TIDM 01/26/22 09/08/22 History (Renvela) vit B complx, C-iron 8 mg-folic 1 tab PO QAM 01/26/22 09/08/22 History acid 800 mcg-D3 1,000 unit-zinc tablet (ProRenal) amlodipine 2.5 mg tablet 2.5 mg PO QAM 06/15/22 09/08/22 History montelukast 5 mg chewable tablet 10 mg PO DAILY PRN allergies 09/08/22 09/08/22 History (Singulair) Patient History Medical History Anemia of chronic disease Aortic stenosis Mild aortic stenosis (ASHLI 1.3-1.4cm2, MG 15.3mmhg) per 03/2022 echo Asthma, moderate persistent AV fistula LUE Bilateral primary osteoarthritis of knee Chronic anemia Hx iron infusions Chronic anemia Diabetes mellitus diet controlled End-stage renal disease on hemodialysis MWF ([facility]) GERD (gastroesophageal reflux disease) Gout History of COVID-19 Most recent 10/2021 ([facility])- symptoms resolved Hyperlipidemia Hypertension Osteoarthritis of knees, bilateral RSV (respiratory syncytial virus pneumonia) Sleep apnea CPAP + 2L HS Surgical History H/O partial thyroidectomy H/O: hysterectomy SANDRA BSO History of appendectomy History of cardiac cath 2017 ([facility])- no stents History of cataract surgery History of cholecystectomy History of colonoscopy History of esophagogastroduodenoscopy (EGD) 10/2021 History of lumbar surgery History of oral surgery salivary gland surgery History of tooth extraction all teeth removed S/P arteriovenous (AV) fistula creation Status post biopsy of kidney kidney disease Family History Daughter Cancer Breast Daughter Cancer Breast Daughter Hypertension Daughter Hypertension Father Diabetes Hypertension Mother Hypertension Brother Diabetes Brother Diabetes Sister Diabetes Sister Diabetes Sister Hypertension Sister Hypertension Other No family history of adverse response to anesthesia Social History Smoking Status: Never smoker Second Hand Exposure: No; Do You Dip or Chew Tobacco: No; Tobacco Cessation Education Requested by Patient: No Hx Alcohol Use: No Hx Substance Use: No Preferred Language: Faroese Communication Ability: Effective Communication Ability Comment: daughter states her mother can read/write/understand welsh Leaf Binner Required: No Beliefs That Will Affect Care: None marital status: / Current Living Situation: Family Current Living Situation Comment: Lives with daughter Other Information That Helps Us Care for You: No Feels Safe at Home: Yes Safety Concerns: Feels Safe At This Time Assistive Devices: CPAP, Oxygen - at Night and Walker Assistive Devices Comment: reading glasses, permanent plate upper front Review of Systems Review of Systems: All systems reviewed & are unremarkable except as noted in HPI & below Physical Exam Constitutional: WD/WN, vitals as above no acute distress Neck: normal visual inspection and trachea midline Respiratory: normal respiratory effort, lungs clear to auscultation Cardiovascular: Rate/Rhythm: regular rate, regular rhythm and + tachycardic Heart Sounds: normal S1, normal S2 and + murmur (+systolic murmur) Vessels: no JVD Extremities: + AV fistula (left arm +thrill); no edema Gastrointestinal (Abdomen): normal bowel sounds, soft, nontender, no hepatosplenomegaly Skin: no rashes, warm and dry Neurologic: PERRL, EOMI, accommodation nl, no face palsy, no dysarthria Psychiatric: A+Ox3, euthymic affect Results & Data Vital Signs (Past 12 Hours) Vital Signs Temp Pulse Pulse Resp BP Pulse Ox O2 Del Method 09/08/22 13:10 36.4 C L 59 L 18 151/89 H 88 L Nasal Cannula 09/08/22 13:00 36.4 C L 59 L 18 151/89 H 88 L Nasal Cannula 09/08/22 12:40 36.4 C L 50 L 18 131/77 97 Nasal Cannula 09/08/22 12:30 55 L 18 127/55 L 96 Nasal Cannula 09/08/22 12:20 52 L 19 128/54 L 95 Nasal Cannula 09/08/22 12:10 53 L 16 135/58 L 94 Nasal Cannula 09/08/22 12:00 60 18 143/65 H 95 Nasal Cannula 09/08/22 11:50 60 22 145/63 H 95 Room Air 09/08/22 11:40 62 20 141/66 H 96 Room Air 09/08/22 11:30 36.2 C L 76 20 168/81 H 94 Oxymask 09/08/22 07:23 37.0 C 66 20 156/92 H 91 Room Air O2 Flow Rate 09/08/22 13:10 2 09/08/22 13:00 2 09/08/22 12:40 2 09/08/22 12:30 2 09/08/22 12:20 2 09/08/22 12:10 2 09/08/22 12:00 2 09/08/22 11:50 09/08/22 11:40 09/08/22 11:30 6 09/08/22 07:23 Laboratory Results Comprehensive Metabolic Panel 09/08/22 Range/Units 07:21 Sodium 139 (136-145) mmol/L Potassium 4.9 (3.5-5.1) mmol/L Chloride 94 L (98-107) mmol/L Carbon Dioxide 34 H (21-32) mmol/L BUN 33 H (6-23) mg/dl Creatinine 5.11 H* (0.6-1.2) mg/dl Glucose 90 (70-99(Fasting)) mg/dl Calcium 8.6 (8.6-10.3) mg/dl Intake and Output 09/07/22 09/08/22 09/08/22 22:59 06:59 14:59 Intake Total 600 / 600 Output Total 60 / 60 Balance 540 / 540 Intake: IV 100 / 100 Sodium Chloride 0.9% 1000ML 1, 0 / 0 000 ml @ 15 mls/hr IV .Q24H [facility] Rx#:[id number] Tranexamic Acid / 0.7% NaCl 1, 100 / 100 000 mg In 100 ml @ 600 mls/hr IV TODAY@0600 [facility] Rx#:[id number] IV Perioperative 500 / 500 Output: Estimated Blood Loss 50 / 50 Urine Amount (Catheter) Driscoll/Indwelling Other: Weight 68.6 kg Weight Measurement Method Standing Scale Patient Weight 09/09/22 06:59 Weight 68.6 kg Diagnostic Findings Dobutamine stress echocardiogram 08/04/2022 The stress echo is negative for inducible ischemia. Resting Study: The qualitative LV ejection fraction is 55-59% (normal). The LV wall thickness is mildly increased (concentric). The left atrium is severely enlarged. The left ventricular diastolic function is moderately abnormal (grade II). Mild aortic valve stenosis is present. Mild aortic valve regurgitation is present. Mild mitral regurgitation is present. Mild tricuspid regurgitation is present. The estimated pulmonary artery systolic pressure is 43mm Hg. Compared to prior study of 04/09/2022, there is no significant change.
--- NOTE | 2022-09-08 14:02 | Anesthesiology Progress Note ---
Date of Service September 08, 2022 Anesthesia Post Procedure Vital Signs Vital Signs: Temp Pulse Pulse Resp BP Pulse Ox O2 Del Method 09/08/22 13:10 36.4 C L 59 L 18 151/89 H 88 L Nasal Cannula 09/08/22 13:00 36.4 C L 59 L 18 151/89 H 88 L Nasal Cannula 09/08/22 12:40 36.4 C L 50 L 18 131/77 97 Nasal Cannula 09/08/22 12:30 55 L 18 127/55 L 96 Nasal Cannula 09/08/22 12:20 52 L 19 128/54 L 95 Nasal Cannula 09/08/22 12:10 53 L 16 135/58 L 94 Nasal Cannula 09/08/22 12:00 60 18 143/65 H 95 Nasal Cannula 09/08/22 11:50 60 22 145/63 H 95 Room Air 09/08/22 11:40 62 20 141/66 H 96 Room Air 09/08/22 11:30 36.2 C L 76 20 168/81 H 94 Oxymask 09/08/22 07: 37.0 C 66 20 156/92 H 91 Room Air O2 Flow Rate 09/08/22 13:10 2 09/08/22 13:00 2 09/08/22 12:40 2 09/08/22 12:30 2 09/08/22 12:20 2 09/08/22 12:10 2 09/08/22 12:00 2 09/08/22 11:50 09/08/22 11:40 09/08/22 11:30 6 09/08/22 07:23 Pain Intensity Right Knee: Pain Intensity: 2 Transfer of Care Handoff Completed per policy Notes Mental Status: alert / awake / arousable and participated in evaluation Patient Amnestic to Procedure: Yes Nausea / Vomiting: adequately controlled Pain: adequately controlled Airway Patency, RR, SpO2: stable & adequate BP & HR: stable & adequate Hydration State: stable & adequate Anesthetic Complications: no major complications apparent and Pt Satisfied with anesthetic care Notes: The patient is s/p R total knee arthroplasty with Dr. Jarvis. The patient has a complex medical history including ESRD on HD MWF. The patient was note preop eratively to be in sinus rhythm with HR in the 50s and 60s and then suddenly become tachycardic with HRs in the 110s to 120s. EKG showed sinus tachycardia. The patient was resting comfortably and was asymptomatic. The patient recently had a stress dest 08/14 that was negative for ischemia. The patient tolerated the procedure well with no major issues. The patient did well in recovery with no apparent issues. She was saturating 97% on 2Lnc on discharge. Her HR was in the 50s and BP 140-s-150s/80s. The patient will be transferred to telemetry for close monitoring. A full report was given to Dr. Driscoll who will be following the patient on the floor. I did inform Dr. Steinberg that the patient uses her CPAP with 2Lnc at night so that she can ensure it is ordered as the patient did not bring her home CPAP.
[2022-09-08] MEDS: ACETAMINOPHEN 500 MG TAB PO SCH ×2 (14:41→22:45)
[2022-09-08] MEDS: POLYETHYLENE (MIRALAX) 17 GM PACK PO PRN (14:41)
--- NOTE | 2022-09-08 15:22 | Hospitalist Consultation ---
Date of Consultation September 08, 2022 Assessment & Plan (1) Valvular heart disease: (2) Tachy-michele syndrome: (3) Atrial tachycardia: (4) End-stage renal disease on hemodialysis: (5) Asthma, moderate persistent: (6) Anemia of chronic disease: (7) Aortic stenosis: (8) Sleep apnea: Plan This is a 76-year-old female with PMH of type 2 diabetes, dyslipidemia, asthma, LAUREN and nocturnal hypoxemia on 2 L nasal cannula at bedtime, hypertension, ESRD on MWF dialysis, anemia of chronic disease, pulmonary hypertension and mild aortic stenosis who is POD#0 s/p R TKA by Dr. Jarvis. Our service was consulted due to postop hypoxia and tachycardia. 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 Erickson in clinic Took AM dose of betaxolol Post op anemia/hypoxia in setting of LAUREN likely contributing factors Discussed with cardiology, who evaluated patient and plan to discontinue betaxolol and start Toprol 25mg HS, continue telemetry monitoring Post-op hypoxia Obtaining further imaging to evaluate other causes of hypoxia but patient feels much improved on O2, afebrile and no recent illness Does have underlying asthma, LAUREN and known nocturnal hypoxemia on 2L NC at home Currently 97% on 2L NC H/o R TKA POD#0 s/p Right Total Knee Arthroplasty(Right) by Dr. Jarvis Per ortho for pain control, wound care, anticoagulation and activities Monitor H&H (pre-op hgb 10.4, EBL 50ml), continue incentive spirometry, PT/OT when appropriate ESRD on HD MWF HD, follows with Dr. Monique. Routine [facility] [place] to coordinate dialysis care. Cont home meds, renal diet Cr of 5 at baseline History of valvular heart disease, mild aortic stenosis Pre-op dobutamine stress echo from 08/05 negative for inducible ischemia, mild mixed valvular heart disease, preserved EF Monitor volume status, will evaluate with chest imaging Anemia of chronic disease History of iron infusions, baseline hgb 10.4 in June (similar to previous) Obtain CBC tomorrow, EBL as above Asthma Stable. Continue Trelegy inh, rescue albuterol PRN LAUREN, nocturnal hypoxemia Not compliant with CPAP currently but using 2L O2 HS, per patient DM II Diet controlled DVT Ppx: SCDs, aspirin 81mg BID PCP: [facility] Dispo: Admitted to PCU Patient seen in collaboration with Dr. Uribe. Please see addendum. Discussed case with daughter, who is a physician in [place], at bedside. I spent a total of 65 minutes coordinating, documenting, and providing care for this patient excluding time spent in the performance of separately billed services. Supervising Physician Co-Signing Physician Notes Pt is a 76 y/o F with hx of ESRD on HD (M, W, F), Pulm HTN, multiple valvular pathology (mild ), HTN, LAUREN on CPAP, Nocturnal hypoxia (on 2L), HLD initially admitted for R total knee arthroplasty and consulted for intermittent tachycardia. PE: NAd, well developed Lungs: good air entry but b/l lower lobe crackles Cardiac: normal S1/S2, no murmur Abd: ND, soft, NT MSK: b/l SCD in place Psych: AAOx3, normal affect A/P: Intermittent Tachycardia: -Bp is elevated -EKG: appeared to be sinus tachy -pt denied any CP or SOB at rest -pt does take Betaxolol -will get CT chest to r/o any lung pathology -cardiology consult: advised to discontinue Betaxolol and start Metoprolol Succinate 25mg evening - pt is admitted to PCU Hypoxia: -pt only uses oxygen at night -could be 2/2 recent anesthesia - will obtain CT chest - for now will keep the pt on 2L of NC R knee replacement: - POD#0 -prn pain management -PT/OT -will obtain repeat CBC and BMP -on bowel regimen ESRD on HD: -nephro consult -HD tomorrow Other chronic conditions: plan as above Agree with A/P Trang Jarvis PA-C History of Present Illness Reason for Consultation: Tachycardia Attending Physician: Benigno Jarvis MD History of Present Illness This is a 76-year-old female with PMH of type 2 diabetes, dyslipidemia, asthma, LAUREN and nocturnal hypoxemia on 2 L nasal cannula at bedtime, hypertension, ESRD on MWF dialysis, anemia of chronic disease, pulmonary hypertension and mild aortic stenosis who is POD#0 s/p R TKA by Dr. Jarvis. Our service was consulted due to postop hypoxia and tachycardia. On evaluation, patient had a heart rate ranging from 50s to 120s. Feeling fatigued postoperatively but denies any acute palpitations, chest pain or shortness of breath at rest. Minimal surgical site pain at this time. Patient took Betatoxol this morning prior to surgery. Has history of LAUREN and usually uses CPAP with 2L O2 bled through but CPAP is malfunctioning so has just been using oxygen. Denies any history of arrhythmia in the past. No F/C, lightheadedness, CP, SOB, N/V, abdominal pain, dysuria, diarrhea or constipation. Allergies Allergy/AdvReac Type Severity Reaction Status Date / Time pollen extracts Allergy Mild sneezing, Verified 09/08/22 07:18 watery eyes No Known Drug Allergies Allergy Unknown Verified 09/08/22 07:18 Home Medications Medication Instructions Recorded Confirmed Type atorvastatin 40 mg tablet 40 mg PO HS 11/10/18 09/08/22 History betaxolol 10 mg tablet 10 mg PO QAM #90 tabs 11/10/18 09/08/22 History famotidine 20 mg tablet 20 mg PO AMHS 05/28/21 09/08/22 History lidocaine-prilocaine 2.5 %-2.5 % See Rx Instructions topical 05/28/21 09/08/22 History topical cream .COMPLEX nitroglycerin 0.4 mg sublingual 0.4 mg sublingual Q5M PRN Chest 05/28/21 09/08/22 History tablet (Nitrostat) Pain pantoprazole 40 mg tablet,delayed 20 mg PO DAILYBB 05/28/21 09/08/22 History release polyethylene glycol 3350 17 gram 17 g PO BID PRN Constipation 05/28/21 09/08/22 History oral powder packet (Miralax) triamcinolone acetonide 0.025 % 1 applic topical BID PRN Rash 05/28/21 09/08/22 History lotion fluticasone fur. 100 mcg-umeclid 1 inh inhalation QAM 10/14/21 09/08/22 History 62.5 mcg-vilant 25 mcg inhalat.powder (Trelegy Ellipta) albuterol sulfate 90 mcg/actuation 2 puff inhalation Q6 PRN Wheezing 01/26/22 09/08/22 History aerosol inhaler (Ventolin HFA) aspirin 81 mg tablet,delayed 81 mg PO QAM 01/26/22 09/08/22 History release fluticasone propionate 50 2 spray intranasal QAM PRN Allergy 01/26/22 09/08/22 History mcg/actuation nasal Symptoms spray,suspension isosorbide mononitrate 30 mg 30 mg PO QAM 01/26/22 09/08/22 History tablet,extended release 24 hr ondansetron HCl 4 mg tablet 4 mg PO Q8 PRN Nausea 01/26/22 09/08/22 History sevelamer carbonate 800 mg tablet 1,600 mg PO TIDM 01/26/22 09/08/22 History (Renvela) vit B complx, C-iron 8 mg-folic 1 tab PO QAM 01/26/22 09/08/22 History acid 800 mcg-D3 1,000 unit-zinc tablet (ProRenal) amlodipine 2.5 mg tablet 2.5 mg PO QAM 06/15/22 09/08/22 History montelukast 5 mg chewable tablet 10 mg PO DAILY PRN allergies 09/08/22 09/08/22 History (Singulair) Patient History Medical History (Updated 09/08/22 @ 15:19 by Trang Jarvis PA-C) Anemia of chronic disease Aortic stenosis Mild aortic stenosis (ASHLI 1.3-1.4cm2, MG 15.3mmhg) per 03/2022 echo Asthma, moderate persistent AV fistula LUE Bilateral primary osteoarthritis of knee Chronic anemia Hx iron infusions Chronic anemia Diabetes mellitus diet controlled End-stage renal disease on hemodialysis MWF ([facility]) GERD (gastroesophageal reflux disease) Gout History of COVID-19 Most recent 10/2021 ([facility])- symptoms resolved Hyperlipidemia Hypertension Osteoarthritis of knees, bilateral RSV (respiratory syncytial virus pneumonia) Sleep apnea CPAP + 2L HS Surgical History H/O partial thyroidectomy H/O: hysterectomy SANDRA BSO History of appendectomy History of cardiac cath 2017 ([facility])- no stents History of cataract surgery History of cholecystectomy History of colonoscopy History of esophagogastroduodenoscopy (EGD) 10/2021 History of lumbar surgery History of oral surgery salivary gland surgery History of tooth extraction all teeth removed S/P arteriovenous (AV) fistula creation Status post biopsy of kidney kidney disease Family History Daughter Cancer Breast Daughter Cancer Breast Daughter Hypertension Daughter Hypertension Father Diabetes Hypertension Mother Hypertension Brother Diabetes Brother Diabetes Sister Diabetes Sister Diabetes Sister Hypertension Sister Hypertension Other No family history of adverse response to anesthesia Social History Smoking Status: Never smoker Second Hand Exposure: No; Do You Dip or Chew Tobacco: No; Tobacco Cessation Education Requested by Patient: No Hx Alcohol Use: No Hx Substance Use: No Preferred Language: Estonian Communication Ability: Effective Communication Ability Comment: daughter states her mother can read/write/understand armenian Registered Nurse Supervisor Required: No Beliefs That Will Affect Care: None marital status: / Current Living Situation: Family Current Living Situation Comment: Lives with daughter Other Information That Helps Us Care for You: No Feels Safe at Home: Yes Safety Concerns: Feels Safe At This Time Assistive Devices: CPAP, Oxygen - at Night and Walker Assistive Devices Comment: reading glasses, permanent plate upper front Review of Systems Review of Systems: At least ten systems reviewed and negative except as noted in the HPI. Physical Exam Physical Exam: Please see Dr. Uribe's addendum for physical exam. Results & Data Results & Data Vital Signs (Past 12 Hours) Vital Signs Temp Pulse Pulse Resp BP Pulse Ox O2 Del Method 09/08/22 14:39 36.3 C L 111 H 20 153/97 H 97 Nasal Cannula 09/08/22 13:15 Nasal Cannula 09/08/22 14:31 Room Air 09/08/22 14:16 Room Air 09/08/22 13:10 36.4 C L 59 L 18 151/89 H 88 L Nasal Cannula 09/08/22 13:00 36.4 C L 59 L 18 151/89 H 88 L Nasal Cannula 09/08/22 12:40 36.4 C L 50 L 18 131/77 97 Nasal Cannula 09/08/22 12:30 55 L 18 127/55 L 96 Nasal Cannula 09/08/22 12:20 52 L 19 128/54 L 95 Nasal Cannula 09/08/22 12:10 53 L 16 135/58 L 94 Nasal Cannula 09/08/22 12:00 60 18 143/65 H 95 Nasal Cannula 09/08/22 11:50 60 22 145/63 H 95 Room Air 09/08/22 11:40 62 20 141/66 H 96 Room Air 09/08/22 11:30 36.2 C L 76 20 168/81 H 94 Oxymask 09/08/22 07:23 37.0 C 66 20 156/92 H 91 Room Air O2 Flow Rate 09/08/22 14:39 2 09/08/22 13:15 2 09/08/22 14:31 09/08/22 14:16 09/08/22 13:10 2 09/08/22 13:00 2 09/08/22 12:40 2 09/08/22 12:30 2 09/08/22 12:20 2 09/08/22 12:10 2 09/08/22 12:00 2 09/08/22 11:50 09/08/22 11:40 09/08/22 11:30 6 09/08/22 07:23 Laboratory Results BMP 09/08/22 07:21 Sodium 139 Potassium 4.9 Chloride 94 L Carbon Dioxide 34 H BUN 33 H Creatinine 5.11 H* Glucose 90 Calcium 8.6 Diagnostic Findings Knee X-Ray 09/08/22 11:23 RIGHT KNEE 2 VIEWS History: Right total knee arthroplasty. Degenerative arthritis. Postop. FINDINGS: The patient is status post a right total knee arthroplasty. The hardware is intact. No fracture or dislocation. Skin tee are in place. IMPRESSION: Right total knee arthroplasty. No evidence for hardware complication. ACT 112: Negative or not required by law. Electronically signed by: Guilherme Rome M.D. 09/08/2022 12:01 PM
--- NOTE | 2022-09-08 15:30 | Electrocardiogram Report ---
Test Reason : Blood Pressure : / mmHG Vent. Rate : 121 BPM Atrial Rate : 121 BPM P-R Int : 176 ms QRS Dur : 106 ms QT Int : 374 ms P-R-T Axes : 000 -62 077 degrees QTc Int : 531 ms Sinus tachycardia Left anterior fascicular block Nonspecific ST abnormality Abnormal ECG When compared with ECG of 26-JAN-2022 12:39, Criteria for Septal infarct are no longer Present Confirmed by Florentin Flores ([id number]) on 09/08/2022 3:30:10 PM Referred By: Benigno Jarvis Confirmed By:Florentin Flores
--- NOTE | 2022-09-08 15:36 | Electrocardiogram Report ---
Test Reason : Blood Pressure : / mmHG Vent. Rate : 113 BPM Atrial Rate : 113 BPM P-R Int : 184 ms QRS Dur : 106 ms QT Int : 376 ms P-R-T Axes : 000 -43 071 degrees QTc Int : 515 ms Poor data quality, interpretation may be adversely affected Sinus tachycardia Left axis deviation Nonspecific ST and T wave abnormality Abnormal ECG When compared with ECG of 08-SEP-2022 08:30, (unconfirmed) No significant change was found Confirmed by Florentin Flores ([id number]) on 09/08/2022 3:35:33 PM Referred By: Benigno Jarvis Confirmed By:Florentin Flores
--- NOTE | 2022-09-08 16:40 | XRay Report ---
XR chest 1V portable CLINICAL HISTORY: Hypoxia. COMPARISON STUDY: Chest CT January 26, 2022. Chest radiograph June 23, 2022. FINDINGS: Moderate elevation of the right hemidiaphragm has increased. There is no pneumothorax. Ther e are suspected small bilateral pleural effusions. Cardiomegaly is unchanged. A large hiatal hernia i s again noted. There is pulmonary vascular congestion with suspected mild interstitial pulmonary jia a. Mild asymmetric right lung airspace opacities are present. IMPRESSION: 1. Cardiomegaly with pulmonary vascular congestion and suspected mild pulmonary edema. Mild asymmetri c right lung airspace opacities could reflect alveolar pulmonary edema or a superimposed infectious p rocess. Radiographic follow-up is recommended. 2. Small bilateral pleural effusions. 3. Slight increase in elevation of the right hemidiaphragm. ACT 112: Negative or not required by law. Electronically signed by: Bright Duran M.D. 09/08/2022 4:38 PM
[2022-09-08] MEDS: ASCORBIC ACID 500 MG TAB PO SCH (17:10)
[2022-09-08] MEDS: NITROGLYCERIN 2% OINTMENT 30GM TUBE EXT SCH ×2 (17:10→23:54)
[2022-09-08] MEDS: SEVELAMER HCL 800 MG TABLET PO SCH (17:10)
[2022-09-08] MEDS ORDERED: TRANEXAMIC ACID / 0.7% NACL 1,000 MG/100 ML BAG IV SCH (17:30)
[2022-09-08] MEDS: amLODIPine BESYLATE 5 MG TAB PO SCH (19:33)
[2022-09-08] MEDS: ASPIRIN 81 MG ECTAB PO SCH (19:34)
[2022-09-08] MEDS: DOCUSATE SODIUM 100 MG CAP PO SCH (19:34)
[2022-09-08] MEDS: FAMOTIDINE 20 MG TAB PO SCH (19:34)
[2022-09-08] MEDS: ATORVASTATIN 40 MG TAB PO SCH (19:34)
[2022-09-08] MEDS: SENNA 8.6 MG TAB PO SCH (19:35)
[2022-09-08] MEDS ORDERED: METOPROLOL SUCC 25MG EXT REL TAB PO ONE (21:00)
[2022-09-08] MEDS: oxyCODONE HCL IR 5 MG TAB (IMMEDIATE RELEASE) PO PRN (22:48)
[2022-09-09] MEDS: ACETAMINOPHEN 500 MG TAB PO SCH ×3 (06:09→22:03)
[2022-09-09] MEDS: NITROGLYCERIN 2% OINTMENT 30GM TUBE EXT SCH ×4 (06:10→23:29)
[2022-09-09] MEDS: PANTOprazole 40 MG TAB PO SCH (06:11)
[2022-09-09] MEDS: oxyCODONE HCL IR 5 MG TAB (IMMEDIATE RELEASE) PO PRN ×2 (06:23→20:07)
[2022-09-09 06:35] LABS: Hematocrit (blood only) 27.1 % (37.0-47.0); Hemoglobin 8.5 g/dl (12.0-16.0); Mean Corpuscular Hemoglobin 26.3 pg (25.0-34.0); Mean Corpuscular Hgb Conc 31.4 g/dL (32.0-36.0); Mean Corpuscular Volume 83.9 fL (80.0-100.0); Mean Platelet Volume 10.6 fL (9.4-12.4); Nucleated RBC # (auto) 0.02 K/uL (0-0.12); Nucleated RBC % (auto) 0.3 %; Platelet Count 143 K/uL (130-400); RDW Standard Deviation 46.1 fL (36.4-46.3); Red Blood Count 3.23 M/uL (4.20-5.40); White Blood Count 6.62 K/ul (4.8-10.8)
[2022-09-09 06:44] LABS: BUN Creatinine Ratio 7.1 (10-20); Calcium 8.7 mg/dl (8.6-10.3); Creatinine Clr Calc Pharmacy 6.7 ml/min; Est GFR (African American) 6.6 ml/min; Est GFR (Non-African American) 5.7 ml/min; Potassium 5.9 mmol/L (3.5-5.1)
--- NOTE | 2022-09-09 07:05 | Orthopedic Progress Note ---
Date of Service September 09, 2022 Assessment & Plan (1) Status post total right knee replacement: Continue dvt prophylaxis: teds, scd's, and aspirin. PT/OT wbat, total knee protocol Continue current pain management She had post op tachybrady syndrome, being followed by cardiology and hospitalist. She gets dialysis Wednesday, Wednesday, and Wednesday. Will order nephrology consult today Discharge planning: she would like to go to rehab. Will discuss with Dr. Jarvis. The patient was seen and examined by myself I later this day in the afternoon. Patient was fairly tired and lethargic as she just got back from my dialysis. The pain is controlled. She is neurologically intact. Plan is to go [facility] if accepted and approved Subjective . 76 year old patient POD #1 from right tka. Having moderate knee pain and nausea. Having some low back pain as well. Vomited yesterday she said. She usually gets dialysis Wednesday, Wednesday and Wednesday. She had some post op tachybrady syndrome. Hospitalist and cardiology following her. Review of Systems All systems reviewed & are unremarkable except as noted in HPI & below. Physical Exam .alert and oriented. NAD. VSS Right leg: dressing clean, dry, intact. Unable to do straight leg raise. Able to dorsiflex and plantarflex. NVI Results & Data Results & Data Laboratory Results . Diagnostic Findings . PG Care Time/CCT Total # of Minutes Spent Total Time Spent with Patient: Total time spent is greater than 50% in coordination of care (as documented) at patient's floor/unit and/or counseling patient: Coding Level of Care Code 18828 Post Operative Follow-Up Diagnoses Status post total right knee replacement Z96.651
--- NOTE | 2022-09-09 07:32 | Cardiology Progress Note ---
Date of Service September 09, 2022 Assessment & Plan (1) Multifocal atrial tachycardia: (2) Valvular heart disease: (3) Hypertensive heart disease: (4) End-stage renal disease on hemodialysis: (5) Status post total right knee replacement: Plan IMPRESSION: Medically complex 76-year-old female with hypertensive heart and kidney disease. On hemodialysis every Wednesday, Wednesday, Wednesday. Mixed valvular heart disease including mild aortic stenosis, mild aortic, tricuspid, mitral, and pulmonary insufficiency, stable on most recent dobutamine stress echo outpatient, 07/2022. Patient now experiencing episodes of multifocal atrial tachycardia postop. She is asymptomatic. PLAN: Recommend ongoing telemetry monitoring. Will give 25 mg of metoprolol succinate this am and start metoprolol succinate 50 mg twice daily this evening for improved management of rhythm and treatment of diastolic heart failure. Recommend investigating underlying causes of tachycardia including anemia, postop pain, and underlying sleep apnea/nocturnal hypoxia, etc. Will defer anemia treatment to primary team. Recommend HD this am due to evidence of volume overload in the setting on renal failure. Continue all other cardiac medications as ordered. Case discussed with Dr. Adrian- will follow. Admission and Anticipated Discharge Date Admission Date: September 08, 2022 Supervising Physician Co-Signing Physician Notes Patient seen and examined, chart, medications, telemetry reviewed. Still short runs of atrial tachycardia, multifocal Chest x-ray with increased vascularity Plan as above metoprolol succinate 50 mg twice per day in place of betaxolol. This will allow for better adjustment and titration as well as with indications for congestive heart failure Do expect improvement after dialysis . Subjective Medically complex 76-year-old female with hypertensive heart and kidney disease on dialysis. Also carries a history of mixed valvular heart disease including mild aortic stenosis, mild aortic, tricuspid, mitral, and pulmonary insufficiency. Underwent right total knee arthroplasty by Dr. Jarvis yesterday, 09/08/2022. Patient observed to have intermittent tachycardia immediately intraoperatively and postoperatively. EKG revealed sinus tachycardia with intermittent multifocal atrial tachycardia, asymptomatic from a patient standpoint though associated with hypertension and hypoxia. 09/08: Home beta-michael, betaxolol, discontinued in favor of metoprolol succinate 25 mg in the evening for better rhythm control as well as treat diastolic heart failure. Chest x-ray revealing bilateral pleural effusions and mild pulmonary vascular congestion. 09/09: Upon entrance into the room patient sitting up in bed about to work with therapy. Notes ongoing shortness of breath with exertion, symptoms improve with rest. Continues to require supplemental o2. Will be having HD later this am. No chest pain. Asymptomatic with MAT. Notes mild post op pain. Telemetry: SR with frequent episodes of MAT, average HR 80s Labs: Anemia noted with a hemoglobin of 8.5, Ongoing renal dysfunction with a serum creatinine of 6.51, baseline around 5, potassium elevated at 5.9due for dialysis today. Review of Systems Review of Systems: All systems reviewed & are unremarkable except as noted in HPI & below Physical Exam Constitutional: WD/WN, vitals as above no acute distress Neck: normal visual inspection and trachea midline Respiratory: normal respiratory effort; no respiratory distress and no cough Auscultation: + diminished lung sounds and + rales; no rhonchi and no wheezes Cardiovascular: Rate/Rhythm: regular rate and regular rhythm Heart Sounds: normal S1, normal S2 and + murmur (+systolic murmur) Vessels: no JVD Extremities: + AV fistula (left arm +thrill); no edema Gastrointestinal (Abdomen): normal bowel sounds, soft, nontender, no hepatosplenomegaly Skin: no rashes, warm and dry Neurologic: PERRL, EOMI, accommodation nl, no face palsy, no dysarthria Psychiatric: A+Ox3, euthymic affect Results & Data Vital Signs (Past 12 Hours) Vital Signs Temp Pulse Resp BP Pulse Ox O2 Del Method O2 Flow Rate 09/09/22 02:47 37.1 C 90 16 145/75 H 100 Nasal Cannula 2 09/08/22 23:00 37.1 C 96 H 22 157/107 H 100 Nasal Cannula 2 09/08/22 21:06 Nasal Cannula 2 09/08/22 20:51 96 H 145/82 H Laboratory Results CBC 09/09/22 Range/Units 05:32 WBC 6.62 (4.8-10.8) K/ul RBC 3.23 L (4.20-5.40) M/uL Hgb 8.5 L (12.0-16.0) g/dl Hct 27.1 L (37.0-47.0) % Plt Count 143 (130-400) K/uL Comprehensive Metabolic Panel 09/09/22 Range/Units 05:32 Sodium 136 (136-145) mmol/L Potassium 5.9 H D (3.5-5.1) mmol/L Chloride 95 L (98-107) mmol/L Carbon Dioxide 32 (21-32) mmol/L BUN 46 H (6-23) mg/dl Creatinine 6.51 H* D (0.6-1.2) mg/dl Glucose 96 (70-99(Fasting)) mg/dl Calcium 8.7 (8.6-10.3) mg/dl Intake and Output 09/08/22 09/09/22 09/09/22 22:59 06:59 14:59 Intake Total 420 / 1020 Output Total Balance 410 / 950 0 / 950 Intake: IV 100 / 200 Tranexamic Acid / 0.7% NaCl 1, 100 / 100 000 mg In 100 ml @ 600 mls/hr IV Q6H [facility] Rx#:[id number] Oral 320 / 320 Output: Urine Amount (Catheter) Driscoll/Indwelling Other: Other Intake Source SIPS
[2022-09-09] MEDS ORDERED: dexAMETHasone 10 MG in SYRINGE 0 ML IV SCH (08:00)
[2022-09-09] MEDS: SEVELAMER HCL 800 MG TABLET PO SCH ×3 (08:33→16:24)
[2022-09-09] MEDS: ASCORBIC ACID 500 MG TAB PO SCH ×2 (08:33→16:23)
[2022-09-09] MEDS: ASPIRIN 81 MG ECTAB PO SCH ×2 (08:34→20:07)
[2022-09-09] MEDS: FLUTICASONE FUROATE 100MCG 14 PUFFS/INHALER INH SCH (08:35)
[2022-09-09] MEDS: DOCUSATE SODIUM 100 MG CAP PO SCH ×2 (08:35→20:48)
[2022-09-09] MEDS: FAMOTIDINE 20 MG TAB PO SCH ×2 (08:35→20:49)
[2022-09-09] MEDS: ISOSORBIDE MONO EXTENDED REL 30 MG TABCR PO SCH (08:36)
[2022-09-09] MEDS: MULTIVITAMIN TAB PO SCH (08:36)
[2022-09-09] MEDS: UMECLIDINIUM/VILANTEROL 62.5/25MCG 7 PUFFS/INHALER INH SCH (08:36)
[2022-09-09] MEDS ORDERED: EPOETIN ALFA 40,000 UNITS/ML VIAL IV ONE (08:39)
[2022-09-09] MEDS ORDERED: IRON SUCROSE 100 MG in SYRINGE 0 ML IV ONE (08:45)
[2022-09-09] MEDS ORDERED: NON-FORMULARY MEDICATION (Vit B,C-Iron Fum-Fa-D3-Zinc Ox [Prorenal] 8 mg iron-800 mcg-1,00 PO SCH (09:00)
[2022-09-09] MEDS ORDERED: amLODIPine BESYLATE 5 MG TAB PO SCH (09:00)
[2022-09-09] MEDS ORDERED: METOPROLOL SUCC 25MG EXT REL TAB PO SCH (09:00)
[2022-09-09] MEDS ORDERED: NON-FORMULARY MEDICATION (Fluticasone-Umeclidin-Vilanter [Trelegy Ellipta] 100-62.5-25 mcg INH SCH (09:00)
[2022-09-09] MEDS ORDERED: ceFAZolin 1000MG 1,000 MG/7.5 ML SYR IV SCH (09:30)
[2022-09-09] MEDS: METOCLOPRAMIDE HCL INJ 5 MG/ML 2 ML VIAL IV PRN ×2 (10:49→21:25)
[2022-09-09] MEDS ORDERED: METOPROLOL SUCC 50MG EXT REL TAB PO STA (11:14)
[2022-09-09] MEDS: HYDROmorphone INJ 0.5 MG/0.5 ML SYR IV PRN (11:22)
--- NOTE | 2022-09-09 11:43 | Nephrology Consultation ---
Date of Consultation September 09, 2022 Assessment & Plan (1) End-stage renal disease on hemodialysis: HD MWF at [facility]. Orders for HD today entered into the EHR and reviewed with the rn iv therapy. Outpatient Rx 3.25 hrs 180 optiflux, 350 Qb, Qd 600, 2K bath, Na 137, HCO3 36. EDW 67.5 kg. AVF with good thrill and bruit. Medications appropriately dosed for kidney function. Renal diet and daily 1.5 L fluid restriction. May hold Sevelamer QAC for hyperphosphatemia pending improvement in nausea and vomiting. (2) Anemia: Venofer 100 mg IV and Epogen 09280 units with HD today. Maintained on Micera as outpatient. Hgb 10.2 on September 02. (3) Atrial tachycardia: Cardiology consultation appreciated. Remains on tele monitor. Sinus rhythm on monitor. BP controlled with amlodipine. No symptoms. (4) Status post total right knee replacement: POD#1 s/p R TKA by Dr. Jarvis. Anticipated inpatient rehab at discharge. History of Present Illness Reason for Consultation: ESRD on HD Requesting Physician: Benigno Jarvis MD Attending Physician: Benigno Jarvis MD History of Present Illness Ms. 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 She is maintained on IHD at [facility] under the care of Dr. Schrader. She has been on dialysis since 2018. Her last treatment was completed on Wednesday. She dialyzes MWF for 3.25 hours on a 180 Optiflux. EDW 67.5 kg. She left dialysis at her dry weight. She dialyzes with a left BC AVF which was placed by Dr. Wade. The fistula has been functioning well. There have not been any recent complications with dialysis. Medical history is also notable for OA/DJD, thyroid cyst w/ tracheal deviation, complex cyst of R kidney, AODM, HTN, LAUREN on nocturnal CPAP, hypercholesterolemia, gout, osteoporosis, chronic low back pain. Juventino was admitted to [facility] yesterday following right TKA for post operative pain and tachycardia. Medical and cardiology consultation reviewed. Juventino was seen and evaluated in her hospital room this morning with her daughter at the bedside. She continued to report pain and nausea. She had difficulty keeping her breakfast down this morning. Her daughter reports a history of similar symptoms associated with a hiatal hernia and some reflux. Juventino denied chest pain or palpitations. She is breathing comfortably. No bowel movement. She is passing flatus. Allergies Allergy/AdvReac Type Severity Reaction Status Date / Time pollen extracts Allergy Mild sneezing, Verified 09/08/22 07:18 watery eyes No Known Drug Allergies Allergy Unknown Verified 09/08/22 07:18 Home Medications Medication Instructions Recorded Confirmed Type atorvastatin 40 mg tablet 40 mg PO HS 11/10/18 09/08/22 History betaxolol 10 mg tablet 10 mg PO QAM #90 tabs 11/10/18 09/08/22 History famotidine 20 mg tablet 20 mg PO AMHS 05/28/21 09/08/22 History lidocaine-prilocaine 2.5 %-2.5 % See Rx Instructions topical 05/28/21 09/08/22 History topical cream .COMPLEX nitroglycerin 0.4 mg sublingual 0.4 mg sublingual Q5M PRN Chest 05/28/21 09/08/22 History tablet (Nitrostat) Pain pantoprazole 40 mg tablet,delayed 20 mg PO DAILYBB 05/28/21 09/08/22 History release polyethylene glycol 3350 17 gram 17 g PO BID PRN Constipation 05/28/21 09/08/22 History oral powder packet (Miralax) triamcinolone acetonide 0.025 % 1 applic topical BID PRN Rash 05/28/21 09/08/22 History lotion fluticasone fur. 100 mcg-umeclid 1 inh inhalation QAM 10/14/21 09/08/22 History 62.5 mcg-vilant 25 mcg inhalat.powder (Trelegy Ellipta) albuterol sulfate 90 mcg/actuation 2 puff inhalation Q6 PRN Wheezing 01/26/22 09/08/22 History aerosol inhaler (Ventolin HFA) aspirin 81 mg tablet,delayed 81 mg PO QAM 01/26/22 09/08/22 History release fluticasone propionate 50 2 spray intranasal QAM PRN Allergy 01/26/22 09/08/22 History mcg/actuation nasal Symptoms spray,suspension isosorbide mononitrate 30 mg 30 mg PO QAM 01/26/22 09/08/22 History tablet,extended release 24 hr ondansetron HCl 4 mg tablet 4 mg PO Q8 PRN Nausea 01/26/22 09/08/22 History sevelamer carbonate 800 mg tablet 1,600 mg PO TIDM 01/26/22 09/08/22 History (Renvela) vit B complx, C-iron 8 mg-folic 1 tab PO QAM 01/26/22 09/08/22 History acid 800 mcg-D3 1,000 unit-zinc tablet (ProRenal) amlodipine 2.5 mg tablet 2.5 mg PO QAM 06/15/22 09/08/22 History montelukast 5 mg chewable tablet 10 mg PO DAILY PRN allergies 09/08/22 09/08/22 History (Singulair) Patient History Medical History Anemia of chronic disease Aortic stenosis Mild aortic stenosis (ASHLI 1.3-1.4cm2, MG 15.3mmhg) per 03/2022 echo Asthma, moderate persistent AV fistula LUE Bilateral primary osteoarthritis of knee Chronic anemia Hx iron infusions Chronic anemia Diabetes mellitus diet controlled End-stage renal disease on hemodialysis MWF ([facility]) GERD (gastroesophageal reflux disease) Gout History of COVID-19 Most recent 10/2021 ([facility])- symptoms resolved Hyperlipidemia Hypertension Osteoarthritis of knees, bilateral RSV (respiratory syncytial virus pneumonia) Sleep apnea CPAP + 2L HS Surgical History H/O partial thyroidectomy H/O: hysterectomy SANDRA BSO History of appendectomy History of cardiac cath 2017 ([facility])- no stents History of cataract surgery History of cholecystectomy History of colonoscopy History of esophagogastroduodenoscopy (EGD) 10/2021 History of lumbar surgery History of oral surgery salivary gland surgery History of tooth extraction all teeth removed S/P arteriovenous (AV) fistula creation Status post biopsy of kidney kidney disease Family History Daughter Cancer Breast Daughter Cancer Breast Daughter Hypertension Daughter Hypertension Father Diabetes Hypertension Mother Hypertension Brother Diabetes Brother Diabetes Sister Diabetes Sister Diabetes Sister Hypertension Sister Hypertension Other No family history of adverse response to anesthesia Social History Smoking Status: Never smoker Second Hand Exposure: No; Do You Dip or Chew Tobacco: No; Tobacco Cessation Education Requested by Patient: No Hx Alcohol Use: No Hx Substance Use: No Preferred Language: Omani Communication Ability: Effective Communication Ability Comment: daughter states her mother can read/write/understand malay [employer] Required: No Beliefs That Will Affect Care: None marital status: / Current Living Situation: Family Current Living Situation Comment: Lives with daughter Other Information That Helps Us Care for You: No Feels Safe at Home: Yes Safety Concerns: Feels Safe At This Time Assistive Devices: CPAP, Oxygen - at Night and Walker Assistive Devices Comment: reading glasses, permanent plate upper front Review of Systems Review of Systems: All systems reviewed & are unremarkable except as noted in HPI & below Constitutional: + fatigue Physical Exam Constitutional: well developed; no acute distress Eyes: no scleral abnormality and no corneal abnormality ENMT: Mouth: no oral mucosal abnormality and oral mucous membranes not dry Neck: normal visual inspection and trachea midline Respiratory: normal respiratory effort Auscultation: lungs clear to auscultation bilaterally Cardiovascular: Rate/Rhythm: regular rate Heart Sounds: normal S1, normal S2 and + murmur Extremities: + pedal edema and + AV fistula Musculoskeletal: Extremities: no cyanosis and no clubbing Skin: normal turgor and + pallor; no jaundice Neurologic: Motor/Sensory: no tremor and no asterixis Psychiatric: Orientation: alert and oriented x 3 Results & Data Vital Signs (Past 12 Hours) Vital Signs Temp Pulse Resp BP Pulse Ox O2 Del Method O2 Flow Rate 09/09/22 11:28 37.1 C 86 18 151/76 H 93 Nasal Cannula 2 09/09/22 08:00 37.0 C 91 H 18 145/73 H 95 Room Air 09/09/22 02:47 37.1 C 90 16 145/75 H 100 Nasal Cannula 2 Laboratory Results Laboratory Results - last 24 hr 09/08/22 09/08/22 09/08/22 13:02 16:28 20:15 WBC RBC Hgb Hct MCV MCH MCHC RDW Std Deviation RDW Coeff of Luis Plt Count MPV Absolute Nucleated RBC Nucleated RBC % (auto) Sodium Potassium Chloride Carbon Dioxide Anion Gap BUN Creatinine Est Cr Clr Drug Dosing Est GFR ( Amer) Est GFR (Non-Af Amer) BUN/Creatinine Ratio Glucose POC Glucose 125 H 157 H 130 H Calcium 09/09/22 09/09/22 09/09/22 05:32 05:32 07:36 WBC 6.62 RBC 3.23 L Hgb 8.5 L Hct 27.1 L MCV 83.9 MCH 26.3 MCHC 31.4 L RDW Std Deviation 46.1 RDW Coeff of Luis 15.0 H Plt Count 143 MPV 10.6 Absolute Nucleated RBC 0.02 Nucleated RBC % (auto) 0.3 Sodium 136 Potassium 5.9 H D Chloride 95 L Carbon Dioxide 32 Anion Gap 9 BUN 46 H Creatinine 6.51 H* D Est Cr Clr Drug Dosing 6.7 Est GFR ( Amer) 6.6 Est GFR (Non-Af Amer) 5.7 BUN/Creatinine Ratio 7.1 L Glucose 96 POC Glucose 137 H Calcium 8.7 PG Care Time/CCT Total # of Minutes Spent Total Time Spent with Patient: Total time spent is greater than 50% in coordination of care (as documented) at patient's floor/unit and/or counseling patient: Coding Level of Care Code 37801 IN/OBS CONSULT LVL 4,60M Diagnoses End-stage renal disease on hemodialysis N18.6; Z99.2 Anemia D64.9 Atrial tachycardia I47.1 Status post total right knee replacement Z96.651
--- NOTE | 2022-09-09 13:08 | Hospitalist Progress Note ---
Date of Service September 09, 2022 Assessment & Plan (1) Valvular heart disease: (2) Tachy-michele syndrome: (3) Atrial tachycardia: (4) End-stage renal disease on hemodialysis: (5) Asthma, moderate persistent: (6) Anemia of chronic disease: (7) Aortic stenosis: (8) Sleep apnea: Plan This is a 76-year-old female with PMH of type 2 diabetes, dyslipidemia, asthma, LAUREN and nocturnal hypoxemia on 2 L nasal cannula at bedtime, hypertension, ESRD on MWF dialysis, anemia of chronic disease, pulmonary hypertension and mild aortic stenosis who is POD#0 s/p R TKA by Dr. Jarvis. Our service was consulted due to postop hypoxia and tachycardia. Tachycardia secondary to MAT Evaluated postop in med tele and found to have variable HR 50s -120 EKG with sinus tachycardia, LAD, nonspecific ST and T wave abnormality that appears similar to ECG this AM Telemetry reviewed; multifocal atrial tachycardia present. Discussed with cardiology, Betaxolol discontinued and started Toprol 50mg twice daily Post-op hypoxia Obtaining further imaging to evaluate other causes of hypoxia but patient feels much improved on O2, afebrile and no recent illness Does have underlying asthma, LAUREN and known nocturnal hypoxemia on 2L NC at home Chest x-ray reviewed personally; cardiomegaly with pulmonary vascular congestion present and suspected mild pulmonary edema. Currently 97% on 2L NC Will get hemodialysis today. Nephrology on board. H/o R TKA POD#1 s/p Right Total Knee Arthroplasty(Right) by Dr. Jarvis Per ortho for pain control, wound care, anticoagulation and activities Monitor H&H (pre-op hgb 10.4, EBL 50ml), continue incentive spirometry, PT/OT when appropriate ESRD on HD MWF HD, follows with Dr. Monique. Routine [facility] nephro consult to coordinate dialysis care. Cont home meds, renal diet History of valvular heart disease, mild aortic stenosis Pre-op dobutamine stress echo from 08/05 negative for inducible ischemia, mild mixed valvular heart disease, preserved EF Monitor volume status, will evaluate with chest imaging Anemia of chronic disease History of iron infusions, baseline hgb 10.4 in June (similar to previous) Obtain CBC tomorrow, EBL as above Asthma Stable. Continue Trelegy inh, rescue albuterol PRN LAUREN, nocturnal hypoxemia Not compliant with CPAP currently but using 2L O2 HS, per patient DM II Diet controlled DVT Ppx: SCDs, aspirin 81mg BID PCP: Alpa Dispo: Admitted to PCU Please note the above document was generated using voice recognition software. It may contain grammatical, syntax or spelling errors. Any formal questions or concerns about the content, text or information contained within the body of this dictation should be directly addressed to the provider for clarification Admission and Anticipated Discharge Date Admission Date: September 08, 2022 Subjective Patient seen and examined at bedside. She reports nausea and vomiting after breakfast. Review of Systems Review of Systems: All systems reviewed & are unremarkable except as noted in Subjective Physical Exam Physical Exam: Constitutional: Alert orient x3 Respiratory: normal respiratory effort, lungs clear to auscultation, no wheeze, rales, rhonchi. Normal insp/exp effort, no accessory muscle use Cardiovascular: RRR, no murmur, no edema Vessels: no JVD or carotid bruit Chest: normal inspection of chest Abdomen: normal bowel sounds, soft, nontender, no hepatosplenomegaly Musculoskeletal: Right leg; dressing C/D/I. AV fistula with bruit and good thrill. Skin: no rashes, warm and dry normal turgor Neurologic: PERRL, EOMI, accommodation nl, no face palsy, no dysarthria CN's II- XI intact bilaterally and moves all extremities Psychiatric: A+Ox3, euthymic affect Results & Data Results & Data Vital Signs (Past 12 Hours) Vital Signs Temp Pulse Resp BP Pulse Ox O2 Del Method O2 Flow Rate 09/09/22 08:00 Nasal Cannula 2 09/09/22 11:28 37.1 C 86 18 151/76 H 93 Nasal Cannula 2 09/09/22 08:00 37.0 C 91 H 18 145/73 H 95 Room Air 09/09/22 02:47 37.1 C 90 16 145/75 H 100 Nasal Cannula 2 Laboratory Results Laboratory Results WBC 6.62 K/ul (4.8-10.8) 09/09/22 05:32 RBC 3.23 M/uL (4.20-5.40) L 09/09/22 05:32 Hgb 8.5 g/dl (12.0-16.0) L 09/09/22 05:32 Hct 27.1 % (37.0-47.0) L 09/09/22 05:32 MCV 83.9 fL (80.0-100.0) 09/09/22 05:32 MCH 26.3 pg (25.0-34.0) 09/09/22 05:32 MCHC 31.4 g/dL (32.0-36.0) L 09/09/22 05:32 RDW Std Deviation 46.1 fL (36.4-46.3) 09/09/22 05:32 RDW Coeff of Luis 15.0 % (11.5-14.5) H 09/09/22 05:32 Plt Count 143 K/uL (130-400) 09/09/22 05:32 MPV 10.6 fL (9.4-12.4) 09/09/22 05:32 Absolute Nucleated RBC 0.02 K/uL (0-0.12) 09/09/22 05:32 Nucleated RBC % (auto) 0.3 % 09/09/22 05:32 Sodium 136 mmol/L (136-145) 09/09/22 05:32 Potassium 5.9 mmol/L (3.5-5.1) H D 09/09/22 05:32 Chloride 95 mmol/L (98-107) L 09/09/22 05:32 Carbon Dioxide 32 mmol/L (21-32) 09/09/22 05:32 Anion Gap 9 (3-11) 09/09/22 05:32 BUN 46 mg/dl (6-23) H 09/09/22 05:32 Creatinine 6.51 mg/dl (0.6-1.2) H* D 09/09/22 05:32 Est Cr Clr Drug Dosing 6.7 ml/min 09/09/22 05:32 Est GFR ( Amer) 6.6 ml/min 09/09/22 05:32 Est GFR (Non-Af Amer) 5.7 ml/min 09/09/22 05:32 BUN/Creatinine Ratio 7.1 (10-20) L 09/09/22 05:32 Glucose 96 mg/dl (70-99(Fasting)) 09/09/22 05:32 POC Glucose 137 mg/dl (70-99) H 09/09/22 07:36 Calcium 8.7 mg/dl (8.6-10.3) 09/09/22 05:32 SARS-CoV-2, RNA, NAAT NEGATIVE (NEGATIVE) 09/08/22 Unknown Impressions Knee X-Ray 09/08/22 11:23 RIGHT KNEE 2 VIEWS History: Right total knee arthroplasty. Degenerative arthritis. Postop. FINDINGS: The patient is status post a right total knee arthroplasty. The hardware is intact. No fracture or dislocation. Skin tee are in place. IMPRESSION: Right total knee arthroplasty. No evidence for hardware complication. ACT 112: Negative or not required by law. Electronically signed by: Guilherme Rome M.D. 09/08/2022 12:01 PM Chest X-Ray 09/08/22 15:15 XR chest 1V portable CLINICAL HISTORY: Hypoxia. COMPARISON STUDY: Chest CT January 26, 2022. Chest radiograph June 23, 2022. FINDINGS: Moderate elevation of the right hemidiaphragm has increased. There is no pneumothorax. There are suspected small bilateral pleural effusions. Cardiomegaly is unchanged. A large hiatal hernia is again noted. There is pulmo nary vascular congestion with suspected mild interstitial pulmonary edema. Mild asymmetric right lung airspace opacities are present. IMPRESSION: 1. Cardiomegaly with pulmonary vascular congestion and suspected mild pulmonary edema. Mild asymmetric right lung airspace opacities could reflect alveolar pulmonary edema or a superimposed infectious process. Radiographic follow-up is recommended. 2. Small bilateral pleural effusions. 3. Slight increase in elevation of the right hemidiaphragm. ACT 112: Negative or not required by law. Electronically signed by: Bright Duran M.D. 09/08/2022 4:38 PM
--- NOTE | 2022-09-09 15:12 | Electrocardiogram Report ---
Test Reason : Blood Pressure : / mmHG Vent. Rate : 091 BPM Atrial Rate : 091 BPM P-R Int : 128 ms QRS Dur : 112 ms QT Int : 380 ms P-R-T Axes : 000 -52 075 degrees QTc Int : 467 ms Poor data quality, interpretation may be adversely affected Normal sinus rhythm with sinus arrhythmia Incomplete right bundle branch block Left anterior fascicular block Nonspecific ST and T wave abnormality Abnormal ECG When compared with ECG of 08-SEP-2022 14:10, Incomplete right bundle branch block is now Present Confirmed by Florentin Flores ([id number]) on 09/09/2022 3:11:47 PM Referred By: Benigno Jarvis Confirmed By:Florentin Flores
[2022-09-09] MEDS: ATORVASTATIN 40 MG TAB PO SCH (20:47)
[2022-09-09] MEDS: amLODIPine BESYLATE 5 MG TAB PO SCH (20:47)
[2022-09-09] MEDS: METOPROLOL SUCC 50MG EXT REL TAB PO SCH (20:48)
[2022-09-09] MEDS: SENNA 8.6 MG TAB PO SCH (20:48)
[2022-09-10] MEDS: HYDROmorphone INJ 0.5 MG/0.5 ML SYR IV PRN ×2 (01:16→10:32)
[2022-09-10] MEDS: ACETAMINOPHEN 500 MG TAB PO SCH ×3 (06:00→21:12)
[2022-09-10] MEDS: PANTOprazole 40 MG TAB PO SCH (06:01)
[2022-09-10] MEDS: NITROGLYCERIN 2% OINTMENT 30GM TUBE EXT SCH (06:01)
[2022-09-10 06:13] LABS: Hematocrit (blood only) 26.1 % (37.0-47.0); Hemoglobin 7.8 g/dl (12.0-16.0)
[2022-09-10 06:29] LABS: BUN Creatinine Ratio 7.8 (10-20); Calcium 9.2 mg/dl (8.6-10.3); Creatinine Clr Calc Pharmacy 9.7 ml/min; Est GFR (African American) 10.3 ml/min; Est GFR (Non-African American) 8.9 ml/min; Potassium 5.3 mmol/L (3.5-5.1)
--- NOTE | 2022-09-10 07:16 | Orthopedic Progress Note ---
Date of Service September 10, 2022 Assessment & Plan (1) Status post total right knee replacement: Postop day 2 from right knee replacement doing pretty well. Her pain seems to be controlled. She is neurologically fully intact. Hemoglobin is a bit low but she is normally anemic due to chronic renal insufficiency. Plan: 1. DVT prophylaxis including thigh-high teds SCDs and aspirin twice a day. 2. PT OT. Weight-bear as tolerated. Right total knee protocol. 3. Pain control doing okay with current pain regimen #4's multiple medical issues. Followed by medicine as well as the renal team. Dialysis as indicated. 4. Disposition she is hoping admission discharge to [facility]. Just wait for placement. Subjective . 76-year-old female with multiple medical comorbidities postop day 2 from a right knee replacement. She is doing pretty well. Pain is controlled. No new complaints this morning. Review of Systems All systems reviewed & are unremarkable except as noted in HPI & below. Physical Exam . Physical examination is a pleasant elderly female. She is looks quite a bit more energetic this morning. Examination of the right leg reveals the dressing clean dry and intact. She can dorsiflex and plantarflex her foot appropriately. She is neurologically intact. Results & Data Results & Data Laboratory Results . Hemoglobin 7.8. MAC is 26.1. Potassium slightly elevated at 5.3 Diagnostic Findings . PG Care Time/CCT Total # of Minutes Spent Total Time Spent with Patient: Total time spent is greater than 50% in coordination of care (as documented) at patient's floor/unit and/or counseling patient: Coding Level of Care Code 81790 Post Operative Follow-Up Diagnoses Status post total right knee replacement Z96.651
--- NOTE | 2022-09-10 07:28 | Cardiology Progress Note ---
Date of Service September 10, 2022 Assessment & Plan (1) Multifocal atrial tachycardia: (2) Valvular heart disease: (3) Hypertensive heart disease: (4) End-stage renal disease on hemodialysis: (5) Status post total right knee replacement: Plan IMPRESSION: Medically complex 76-year-old female with hypertensive heart and kidney disease. On hemodialysis every Wednesday, Wednesday, Wednesday. 2L removed yesterday, 09/09. Mixed valvular heart disease including mild aortic stenosis, mild aortic, tricuspid, mitral, and pulmonary insufficiency, stable on most recent dobutamine stress echo outpatient, 07/2022. Patient experiencing episodes of multifocal atrial tachycardia postop. She is asymptomatic. Improvment on telemetry with transition in beta michael. PLAN: Recommend ongoing telemetry monitoring. Continue metoprolol succinate 50 mg twice daily for improved management of rhythm and treatment of diastolic heart failure. BP remain elevated- discontinue topical nitrate therapy for increased dose of Imdur 60 mg daily. Increase to start this am. Recommend investigating and treating underlying causes of tachycardia including anemia, postop pain, and underlying sleep apnea/nocturnal hypoxia, etc. Will defer anemia treatment to primary team. Proceed with HD as schedule for volume management in the setting of renal failure. Continue all other cardiac medications as ordered. Case discussed with Dr. Adrian- will follow. Admission and Anticipated Discharge Date Admission Date: September 08, 2022 Supervising Physician Co-Signing Physician Notes Patient seen and examined, chart, medications, telemetry reviewed. Telemetry much improved with rare episodes of multifocal atrial tachycardia none this morning. Tolerating changes medical therapies Resting sinus rhythm while sleeping 50s and 60s Continue metoprolol succinate 50 mg twice per day isosorbide mononitrate increased to 60 mg/day. No other further adjustments Continue with postoperative management, routine dialysis Subjective Medically complex 76-year-old female with hypertensive heart and kidney disease on dialysis. Also carries a history of mixed valvular heart disease including mild aortic stenosis, mild aortic, tricuspid, mitral, and pulmonary insufficiency. Underwent right total knee arthroplasty by Dr. Jarvis yesterday, 09/08/2022. Patient observed to have intermittent tachycardia immediately intraoperatively and postoperatively. EKG revealed sinus tachycardia with intermittent multifocal atrial tachycardia, asymptomatic from a patient standpoint though associated with hypertension and hypoxia. 09/08: Home beta-michael, betaxolol, discontinued in favor of metoprolol succinate 25 mg in the evening for better rhythm control as well as treat diastolic heart failure. Chest x-ray revealing bilateral pleural effusions and mild pulmonary vascular congestion. 09/09: Telemetry: SR with frequent episodes of MAT, average HR 80s- metoprolol succinate increased to 50 mg twice daily. Underwent HD removing 2L without complication. 09/10: Upon entrance into the room patient resting in bed. Nurse at bedside giving morning pills. No acute cardiovascular concerns. Notes improvement in her breathing after getting HD yesterday. Continues to desaturate into the high 80s while O2 is weaned. No chest pain, palpitations, or lightheadedness. Becoming more mobile- working with therapy. Has been out of bed. Post op discomfort improving. Tele: NSR 70s. MAT lessened around 0200. Review of Systems Review of Systems: All systems reviewed & are unremarkable except as noted in HPI & below Physical Exam Constitutional: WD/WN, vitals as above no acute distress Neck: normal visual inspection and trachea midline Respiratory: normal respiratory effort, lungs clear to auscultation normal respiratory effort; no respiratory distress and no cough Auscultation: + diminished lung sounds and + rales; no rhonchi and no wheezes Cardiovascular: Rate/Rhythm: regular rate and regular rhythm Heart Sounds: normal S1, normal S2 and + murmur (+systolic murmur) Vessels: no JVD Extremities: + AV fistula (left arm +thrill); no edema Gastrointestinal (Abdomen): normal bowel sounds, soft, nontender, no hepatosplenomegaly Skin: no rashes, warm and dry Neurologic: PERRL, EOMI, accommodation nl, no face palsy, no dysarthria Psychiatric: A+Ox3, euthymic affect Results & Data Vital Signs (Past 12 Hours) Vital Signs Temp Pulse Pulse Pulse Resp BP Pulse Ox 09/10/22 06:01 66 149/70 H 09/10/22 04:24 37.0 C 68 18 146/73 H 96 09/09/22 23:33 36.8 C 67 18 148/68 H 97 09/09/22 23:15 70 09/09/22 20:00 09/09/22 19:52 36.8 C 72 18 148/75 H 96 O2 Del Method O2 Flow Rate 09/10/22 06:01 09/10/22 04:24 Nasal Cannula 1 09/09/22 23:33 Nasal Cannula 1 09/09/22 23:15 09/09/22 20:00 Nasal Cannula 2 09/09/22 19:52 Nasal Cannula 1 Laboratory Results CBC 09/10/22 Range/Units 05:48 Hgb 7.8 L (12.0-16.0) g/dl Hct 26.1 L (37.0-47.0) % Comprehensive Metabolic Panel 09/10/22 Range/Units 05:48 Sodium 137 (136-145) mmol/L Potassium 5.3 H (3.5-5.1) mmol/L Chloride 99 (98-107) mmol/L Carbon Dioxide 30 (21-32) mmol/L BUN 35 H (6-23) mg/dl Creatinine 4.48 H D (0.6-1.2) mg/dl Glucose 100 H (70-99(Fasting)) mg/dl Calcium 9.2 (8.6-10.3) mg/dl Intake and Output 09/09/22 09/10/22 09/10/22 22:59 06:59 14:59 Other: Hemodialysis Ultrafiltration 2,000 Amount # Unmeasured Voids 1
[2022-09-10] MEDS: POLYETHYLENE (MIRALAX) 17 GM PACK PO PRN ×2 (08:22→20:43)
[2022-09-10] MEDS: oxyCODONE HCL IR 5 MG TAB (IMMEDIATE RELEASE) PO PRN ×2 (08:23→16:54)
[2022-09-10] MEDS: ASCORBIC ACID 500 MG TAB PO SCH ×2 (08:24→16:55)
[2022-09-10] MEDS: SEVELAMER HCL 800 MG TABLET PO SCH ×3 (08:24→16:55)
[2022-09-10] MEDS: FAMOTIDINE 20 MG TAB PO SCH ×2 (08:25→20:42)
[2022-09-10] MEDS: ISOSORBIDE MONO EXTENDED REL 30 MG TABCR PO SCH (08:25)
[2022-09-10] MEDS: DOCUSATE SODIUM 100 MG CAP PO SCH ×2 (08:25→20:42)
[2022-09-10] MEDS: ASPIRIN 81 MG ECTAB PO SCH ×2 (08:25→20:42)
[2022-09-10] MEDS: MULTIVITAMIN TAB PO SCH (08:26)
[2022-09-10] MEDS: UMECLIDINIUM/VILANTEROL 62.5/25MCG 7 PUFFS/INHALER INH SCH (08:26)
[2022-09-10] MEDS: FLUTICASONE FUROATE 100MCG 14 PUFFS/INHALER INH SCH (08:26)
[2022-09-10] MEDS: METOPROLOL SUCC 50MG EXT REL TAB PO SCH ×2 (08:26→20:41)
[2022-09-10] MEDS ORDERED: ISOSORBIDE MONO EXTENDED REL 30 MG TABCR PO ONE (09:05)
[2022-09-10] MEDS: METOCLOPRAMIDE HCL INJ 5 MG/ML 2 ML VIAL IV PRN (10:46)
--- NOTE | 2022-09-10 12:49 | Hospitalist Progress Note ---
Date of Service September 10, 2022 Assessment & Plan (1) Valvular heart disease: (2) Tachy-michele syndrome: (3) Atrial tachycardia: (4) End-stage renal disease on hemodialysis: (5) Asthma, moderate persistent: (6) Anemia of chronic disease: (7) Aortic stenosis: (8) Sleep apnea: Plan This is a 76-year-old female with PMH of type 2 diabetes, dyslipidemia, asthma, LAUREN and nocturnal hypoxemia on 2 L nasal cannula at bedtime, hypertension, ESRD on MWF dialysis, anemia of chronic disease, pulmonary hypertension and mild aortic stenosis who is POD#0 s/p R TKA by Dr. Jarvis. Our service was consulted due to postop hypoxia and tachycardia. Tachycardia secondary to MAT Evaluated postop in med tele and found to have variable HR 50s -120 EKG with sinus tachycardia, LAD, nonspecific ST and T wave abnormality that appears similar to ECG this AM Telemetry reviewed; maintaining normal sinus rhythm Discussed with cardiology, Betaxolol discontinued and started Toprol 50mg twice daily Post-op hypoxia Does have underlying asthma, LAUREN and known nocturnal hypoxemia on 2L NC at home Chest x-ray reviewed personally; cardiomegaly with pulmonary vascular congestion present and suspected mild pulmonary edema. Underwent dialysis on 09/09 Oxygen saturation 97% on room air currently. H/o R TKA POD#2 s/p Right Total Knee Arthroplasty(Right) by Dr. Jarvis Per ortho for pain control, wound care,and activities Monitor H&H (pre-op hgb 10.4, EBL 50ml), continue incentive spirometry, PT/OT when appropriate Aspirin 81 mg twice daily for DVT prophylaxis PT OT eval; likely DC to [facility]. ESRD on HD MWF HD, follows with Dr. Monique. Routine [facility] nephro consult to coordinate dialysis care. Cont home meds, renal diet History of valvular heart disease, mild aortic stenosis Pre-op dobutamine stress echo from 08/05 negative for inducible ischemia, mild mixed valvular heart disease, preserved EF Monitor volume status, will evaluate with chest imaging Anemia of chronic disease History of iron infusions, baseline hgb of 7.8 today. Monitor for now. Asthma Stable. Continue Trelegy inh, rescue albuterol PRN LAUREN, nocturnal hypoxemia Not compliant with CPAP currently but using 2L O2 HS, per patient DM II Diet controlled DVT Ppx: SCDs, aspirin 81mg BID PCP: [facility] Dispo: Admitted to PCU Please note the above document was generated using voice recognition software. It may contain grammatical, syntax or spelling errors. Any formal questions or concerns about the content, text or information contained within the body of this dictation should be directly addressed to the provider for clarification Admission and Anticipated Discharge Date Admission Date: September 08, 2022 Subjective Patient seen and examined at bedside. She is sitting up on chair at the side of the bed; not in distress. Reports that her breathing is slightly better after dialysis yesterday Denies any pain. Worked with physical therapy. Review of Systems Review of Systems: All systems reviewed & are unremarkable except as noted in Subjective Physical Exam Physical Exam: Constitutional: Alert orient x3 Respiratory: normal respiratory effort, lungs clear to auscultation, no wheeze, rales, rhonchi. Normal insp/exp effort, no accessory muscle use Cardiovascular: RRR, no murmur, no edema Vessels: no JVD or carotid bruit Chest: normal inspection of chest Abdomen: normal bowel sounds, soft, nontender, no hepatosplenomegaly Musculoskeletal: Right leg; dressing C/D/I. AV fistula with bruit and good thrill. Skin: no rashes, warm and dry normal turgor Neurologic: PERRL, EOMI, accommodation nl, no face palsy, no dysarthria CN's II- XI intact bilaterally and moves all extremities Psychiatric: A+Ox3, euthymic affect Results & Data Results & Data Vital Signs (Past 12 Hours) Vital Signs Temp Pulse Pulse Pulse Resp BP Pulse Ox 09/10/22 11:35 36.6 C 77 18 112/88 97 09/10/22 06:01 66 149/70 H 09/10/22 04:24 37.0 C 68 18 146/73 H 96 O2 Del Method O2 Flow Rate 09/10/22 11:35 Room Air 09/10/22 06:01 09/10/22 04:24 Nasal Cannula 1 Laboratory Results Laboratory Results WBC 6.62 K/ul (4.8-10.8) 09/09/22 05:32 RBC 3.23 M/uL (4.20-5.40) L 09/09/22 05:32 Hgb 7.8 g/dl (12.0-16.0) L 09/10/22 05:48 Hct 26.1 % (37.0-47.0) L 09/10/22 05:48 MCV 83.9 fL (80.0-100.0) 09/09/22 05:32 MCH 26.3 pg (25.0-34.0) 09/09/22 05:32 MCHC 31.4 g/dL (32.0-36.0) L 09/09/22 05:32 RDW Std Deviation 46.1 fL (36.4-46.3) 09/09/22 05:32 RDW Coeff of Luis 15.0 % (11.5-14.5) H 09/09/22 05:32 Plt Count 143 K/uL (130-400) 09/09/22 05:32 MPV 10.6 fL (9.4-12.4) 09/09/22 05:32 Absolute Nucleated RBC 0.02 K/uL (0-0.12) 09/09/22 05:32 Nucleated RBC % (auto) 0.3 % 09/09/22 05:32 Sodium 137 mmol/L (136-145) 09/10/22 05:48 Potassium 5.3 mmol/L (3.5-5.1) H 09/10/22 05:48 Chloride 99 mmol/L (98-107) 09/10/22 05:48 Carbon Dioxide 30 mmol/L (21-32) 09/10/22 05:48 Anion Gap 8 (3-11) 09/10/22 05:48 BUN 35 mg/dl (6-23) H 09/10/22 05:48 Creatinine 4.48 mg/dl (0.6-1.2) H D 09/10/22 05:48 Est Cr Clr Drug Dosing 9.7 ml/min 09/10/22 05:48 Est GFR ( Amer) 10.3 ml/min 09/10/22 05:48 Est GFR (Non-Af Amer) 8.9 ml/min 09/10/22 05:48 BUN/Creatinine Ratio 7.8 (10-20) L 09/10/22 05:48 Glucose 100 mg/dl (70-99(Fasting)) H 09/10/22 05:48 POC Glucose 137 mg/dl (70-99) H 09/09/22 07:36 Calcium 9.2 mg/dl (8.6-10.3) 09/10/22 05:48 SARS-CoV-2, RNA, NAAT NEGATIVE (NEGATIVE) 09/08/22 Unknown Impressions Knee X-Ray 09/08/22 11:23 RIGHT KNEE 2 VIEWS History: Right total knee arthroplasty. Degenerative arthritis. Postop. FINDINGS: The patient is status post a right total knee arthroplasty. The hardware is intact. No fracture or dislocation. Skin tee are in place. IMPRESSION: Right total knee arthroplasty. No evidence for hardware complication. ACT 112: Negative or not required by law. Electronically signed by: Guilherme Rome M.D. 09/08/2022 12:01 PM Chest X-Ray 09/08/22 15:15 XR chest 1V portable CLINICAL HISTORY: Hypoxia. COMPARISON STUDY: Chest CT January 26, 2022. Chest radiograph June 23, 2022. FINDINGS: Moderate elevation of the right hemidiaphragm has increased. There is no pneumothorax. There are suspected small bilateral pleural effusions. Cardiomegaly is unchanged. A large hiatal hernia is again noted. There is pulmonary vascular congestion with suspected mild interstitial pulmonary edema. Mild asymmetric right lung airspace opacities are present. IMPRESSION: 1. Cardiomegaly with pulmonary vascular congestion and suspected mild pulmonary edema. Mild asymmetric right lung airspace opacities could reflect alveolar pulmonary edema or a superimposed infectious process. Radiographic follow-up is recommended. 2. Small bilateral pleural effusions. 3. Slight increase in elevation of the right hemidiaphragm. ACT 112: Negative or not required by law. Electronically signed by: Bright Duran M.D. 09/08/2022 4:38 PM
--- NOTE | 2022-09-10 13:17 | Nephrology Progress Note ---
Date of Service September 10, 2022 Assessment & Plan (1) End-stage renal disease on hemodialysis: Plan: HD MWF at [facility].Outpatient Rx 3.25 hrs 180 optiflux, 350 Qb, Qd 600, 2K bath, Na 137, HCO3 36. EDW 67.5 kg. BP and volume status acceptable. Electrolytes controlled. Adequate clearanace. Next treatment tomorrow. AVF with good thrill and bruit. Medications appropriately dosed for kidney function. Renal diet and daily 1.5 L fluid restriction. Sevelamer QAC for hyperphosphatemia. (2) Anemia: Plan: Venofer 100 mg IV and Epogen 07756 units with HD yesterday. (3) Atrial tachycardia: Plan: Improvement noted. Tolerating metoprolol well. (4) Status post total right knee replacement: Plan: POD#2 s/p R TKA by Dr. Jarvis. Anticipated inpatient rehab at discharge. Admission and Anticipated Discharge Date Admission Date: September 08, 2022 Subjective No acute events overnight. Reports some pain in her leg this AM. Difficulty sleeping reported. Tolerated HD well yesterday. No complications with treatment. Review of Systems Review of Systems: All systems reviewed & are unremarkable except as noted in HPI & below Physical Exam Constitutional: well developed; no acute distress Eyes: no scleral abnormality and no corneal abnormality ENMT: Mouth: no oral mucosal abnormality and oral mucous membranes not dry Neck: normal visual inspection and trachea midline Respiratory: normal respiratory effort Auscultation: lungs clear to auscultation bilaterally Cardiovascular: Rate/Rhythm: regular rate Heart Sounds: normal S1, normal S2 and + murmur Extremities: + pedal edema, + edema and + AV fistula Musculoskeletal: Extremities: no cyanosis and no clubbing Skin: normal turgor and + pallor; no jaundice Neurologic: Motor/Sensory: no tremor and no asterixis Psychiatric: Orientation: alert and oriented x 3 Results & Data Vital Signs (Past 12 Hours) Vital Signs Temp Pulse Pulse Pulse Resp BP Pulse Ox 09/10/22 11:35 36.6 C 77 18 112/88 97 09/10/22 06:01 66 149/70 H 09/10/22 04:24 37.0 C 68 18 146/73 H 96 O2 Del Method O2 Flow Rate 09/10/22 11:35 Room Air 09/10/22 06:01 09/10/22 04:24 Nasal Cannula 1 Laboratory Results Laboratory Results - last 24 hr 09/10/22 09/10/22 05:48 05:48 Hgb 7.8 L Hct 26.1 L Sodium 137 Potassium 5.3 H Chloride 99 Carbon Dioxide 30 Anion Gap 8 BUN 35 H Creatinine 4.48 H D Est Cr Clr Drug Dosing 9.7 Est GFR ( Amer) 10.3 Est GFR (Non-Af Amer) 8.9 BUN/Creatinine Ratio 7.8 L Glucose 100 H Calcium 9.2 PG Care Time/CCT Total # of Minutes Spent Total Time Spent with Patient: Total time spent is greater than 50% in coordination of care (as documented) at patient's floor/unit and/or counseling patient: Coding Level of Care Code 33541 SUB INP/OBS CARE 3/50MIN Diagnoses End-stage renal disease on hemodialysis N18.6; Z99.2 Anemia D64.9 Atrial tachycardia I47.1 Status post total right knee replacement Z96.651
[2022-09-10] MEDS: amLODIPine BESYLATE 5 MG TAB PO SCH (20:41)
[2022-09-10] MEDS: SENNA 8.6 MG TAB PO SCH (20:41)
[2022-09-10] MEDS: ATORVASTATIN 40 MG TAB PO SCH (20:42)
[2022-09-10] MEDS ORDERED: METOPROLOL TARTRATE 1 MG/ML VIAL IV STA (23:40)
[2022-09-11] MEDS: PANTOprazole 40 MG TAB PO SCH (05:44)
[2022-09-11] MEDS: ACETAMINOPHEN 500 MG TAB PO SCH ×3 (05:44→17:07)
--- NOTE | 2022-09-11 07:26 | Cardiology Progress Note ---
Date of Service September 11, 2022 Assessment & Plan (1) Multifocal atrial tachycardia: (2) Valvular heart disease: (3) Hypertensive heart disease: (4) End-stage renal disease on hemodialysis: (5) Status post total right knee replacement: Plan IMPRESSION: Medically complex 76-year-old female with hypertensive heart and kidney disease. On hemodialysis every Wednesday, Wednesday, Wednesday. 2L removed yesterday, 09/09. Mixed valvular heart disease including mild aortic stenosis, mild aortic, tricuspid, mitral, and pulmonary insufficiency, stable on most recent dobutamine stress echo outpatient, 07/2022. Patient experiencing episodes of multifocal atrial tachycardia postop. She is asymptomatic. Improvment on telemetry with transition in beta michael initially with return of MAT over night. PLAN: Recommend ongoing telemetry monitoring. Increase metoprolol succinate to 75 mg twice daily for improved management of rhythm and treatment of diastolic heart failure. BP improving, continue increased dose of Imdur 60 mg daily. Recommend investigating and treating underlying causes of tachycardia including anemia, postop pain, and underlying sleep apnea/nocturnal hypoxia, etc. Will defer anemia treatment to primary team. CBC pending this am. Recommend maintaining a hgb >10 given. Proceed with HD as schedule for volume management in the setting of renal failure. Continue all other cardiac medications as ordered. Case discussed with Dr. Adrian- will follow. Admission and Anticipated Discharge Date Admission Date: September 08, 2022 Supervising Physician Co-Signing Physician Notes Patient seen and examined, chart reviewed. Still small transient runs of atrial tachycardia. Metoprolol succinate being tolerated well patient asymptomatic during events. We will titrate up metoprolol succinate as above. If significant arrhythmias remain persistent could consider discontinuation of beta-michael and beginning amiodarone though with own inherent risks Blood pressures appear controlled and volume status to be addressed at dialysis. Continue to follow anemia as above Subjective Medically complex 76-year-old female with hypertensive heart and kidney disease on dialysis. Also carries a history of mixed valvular heart disease including mild aortic stenosis, mild aortic, tricuspid, mitral, and pulmonary insufficiency. Underwent right total knee arthroplasty by Dr. Jarvis yesterday, 09/08/2022. Patient observed to have intermittent tachycardia immediately intraoperatively and postoperatively. EKG revealed sinus tachycardia with intermittent multifocal atrial tachycardia, asymptomatic from a patient standpoint though associated with hypertension and hypoxia. 09/08: Home beta-michael, betaxolol, discontinued in favor of metoprolol succinate 25 mg in the evening for better rhythm control as well as treat diastolic heart failure. Chest x-ray revealing bilateral pleural effusions and mild pulmonary vascular congestion. 09/09: Telemetry: SR with frequent episodes of MAT, average HR 80s- metoprolol succinate increased to 50 mg twice daily. Underwent HD removing 2L without complication. 09/10: Telemetry much improved with rare episodes of multifocal atrial tachycardia. To lerating changes medical therapies Resting sinus rhythm while sleeping 50s and 60s Imdur increased to 60 mg daily. 09/11: Upon entrance into the room patient resting in the chair after getting cleaned up. Over night felt poorly with increased shortness of breath around midnight- feels improved now that she is up out of bed. Oxygenation status has improved, but still requiring supplemental o2 (1L). Due for HD today. Denies chest pain or palpitations, asymptomatic with MAT. Becoming more mobile- working with therapy. Post op discomfort improving. CBC showing a hgb of 7.8 yesterday. CBC from today pending. Tele: Multifocal atrial tachycardia since about 1800 (09/10)- HR averaging 120- 130s. Review of Systems Review of Systems: All systems reviewed & are unremarkable except as noted in HPI & below Physical Exam Constitutional: WD/WN, vitals as above no acute distress Neck: normal visual inspection and trachea midline Respiratory: normal respiratory effort, lungs clear to auscultation normal respiratory effort; no respiratory distress and no cough Auscultation: + diminished lung sounds and + rales; no rhonchi and no wheezes Cardiovascular: Rate/Rhythm: regular rhythm and + tachycardic Heart Sounds: normal S1, normal S2 and + murmur (+systolic murmur) Vessels: no JVD Extremities: + edema (+1-2 BLLE pitting edema, compression socks on. ) and + AV fistula (left arm +thrill) Gastrointestinal (Abdomen): normal bowel sounds, soft, nontender, no hepatosplenomegaly Skin: no rashes, warm and dry Neurologic: PERRL, EOMI, accommodation nl, no face palsy, no dysarthria Psychiatric: A+Ox3, euthymic affect Results & Data Vital Signs (Past 12 Hours) Vital Signs Temp Pulse Pulse Pulse Resp BP BP 09/11/22 02:44 37.0 C 96 H 18 152/75 H 09/10/22 23:00 131 H 09/10/22 22:00 67 09/10/22 23:49 106 H 139/81 09/10/22 23:38 36.8 C 91 H 17 139/81 09/10/22 20:00 09/10/22 19:29 36.9 C 63 16 124/55 L Pulse Ox O2 Del Method O2 Flow Rate 09/11/22 02:44 95 Nasal Cannula 2 09/10/22 23:00 09/10/22 22:00 09/10/22 23:49 09/10/22 23:38 94 Nasal Cannula 1 09/10/22 20:00 Nasal Cannula 2 09/10/22 19:29 94 Nasal Cannula 1 Laboratory Results Comprehensive Metabolic Panel 09/11/22 Range/Units 06:44 Sodium 131 L (136-145) mmol/L Potassium 6.0 H (3.5-5.1) mmol/L Chloride 95 L (98-107) mmol/L Carbon Dioxide 25 (21-32) mmol/L BUN 74 H D (6-23) mg/dl Creatinine 6.57 H* D (0.6-1.2) mg/dl Glucose 90 (70-99(Fasting)) mg/dl Calcium 9.1 (8.6-10.3) mg/dl Intake and Output 09/10/22 09/11/22 09/11/22 22:59 06:59 14:59 Intake Total 560 / 710 Balance 560 / 710 Intake: Oral 560 / 710 Other: Other Intake Source Sips # Unmeasured Voids 0 0 1 Weight 69.3 kg Weight Measurement Method [facility] Diagnostic Findings Laboratory Results - last 24 hr 09/11/22 09/11/22 06:43 06:44 WBC 7.52 RBC 3.01 L Hgb 7.8 L Hct 25.1 L MCV 83.4 MCH 25.9 MCHC 31.1 L RDW Std Deviation 44.3 RDW Coeff of Luis 14.7 H Plt Count 166 MPV 10.9 Immature Gran % (Auto) 0.5 Neut % (Auto) 69.0 Lymph % (Auto) 16.4 [place] % (Auto) 9.3 Eos % (Auto) 4.3 Baso % (Auto) 0.5 Neut # (Auto) 5.19 Lymph # (Auto) 1.23 [place] # (Auto) 0.70 H Eos # (Auto) 0.32 Baso # (Auto) 0.04 Immature Gran # (Auto) 0.04 Sodium 131 L Potassium 6.0 H Chloride 95 L Carbon Dioxide 25 Anion Gap 11 BUN 74 H D Creatinine 6.57 H* D Est Cr Clr Drug Dosing 6.6 Est GFR ( Amer) 6.5 Est GFR (Non-Af Amer) 5.6 BUN/Creatinine Ratio 11.3 Glucose 90 Calcium 9.1
[2022-09-11 07:35] LABS: BUN Creatinine Ratio 11.3 (10-20); Calcium 9.1 mg/dl (8.6-10.3); Creatinine Clr Calc Pharmacy 6.6 ml/min; Est GFR (African American) 6.5 ml/min; Est GFR (Non-African American) 5.6 ml/min
[2022-09-11] MEDS: DOCUSATE SODIUM 100 MG CAP PO SCH (09:00)
[2022-09-11] MEDS: POLYETHYLENE (MIRALAX) 17 GM PACK PO PRN (09:00)
[2022-09-11] MEDS ORDERED: ISOSORBIDE MONO EXTENDED REL 60 MG TABCR PO SCH (09:00)
[2022-09-11] MEDS ORDERED: METOPROLOL SUCC 25MG EXT REL TAB PO SCH (09:00)
[2022-09-11] MEDS: MULTIVITAMIN TAB PO SCH (09:01)
[2022-09-11] MEDS: ASCORBIC ACID 500 MG TAB PO SCH ×2 (09:01→17:03)
[2022-09-11] MEDS: FLUTICASONE FUROATE 100MCG 14 PUFFS/INHALER INH SCH (09:02)
[2022-09-11] MEDS: UMECLIDINIUM/VILANTEROL 62.5/25MCG 7 PUFFS/INHALER INH SCH (09:02)
[2022-09-11] MEDS: ASPIRIN 81 MG ECTAB PO SCH (09:02)
[2022-09-11] MEDS: SEVELAMER HCL 800 MG TABLET PO SCH ×3 (09:03→17:03)
[2022-09-11] MEDS: FAMOTIDINE 20 MG TAB PO SCH (09:03)
[2022-09-11 09:33] LABS: Basophils # (auto) 0.04 K/uL (0-0.2); Basophils % (auto) 0.5 %; Eosinophils # (auto) 0.32 K/uL (0-0.50); Eosinophils % (auto) 4.3 %; Hematocrit (blood only) 25.1 % (37.0-47.0); Hemoglobin 7.8 g/dl (12.0-16.0); Immature Granulocytes # (auto) 0.04 K/uL (0.01-0.20); Immature Granulocytes % (auto) 0.5 %; Lymphocytes # (auto) 1.23 K/uL (1.2-3.4); Lymphocytes % (auto) 16.4 %; Mean Corpuscular Hemoglobin 25.9 pg (25.0-34.0); Mean Corpuscular Hgb Conc 31.1 g/dL (32.0-36.0); Mean Corpuscular Volume 83.4 fL (80.0-100.0); Mean Platelet Volume 10.9 fL (9.4-12.4); Monocytes % (auto) 9.3 %; Neutrophils # (auto) 5.19 K/uL (1.40-6.50); Platelet Count 166 K/uL (130-400); RDW Coefficient of Variation 14.7 % (11.5-14.5); RDW Standard Deviation 44.3 fL (36.4-46.3); Red Blood Count 3.01 M/uL (4.20-5.40); White Blood Count 7.52 K/ul (4.8-10.8)
[2022-09-11] MEDS: HYDROmorphone INJ 0.5 MG/0.5 ML SYR IV PRN (10:01)
--- NOTE | 2022-09-11 10:27 | Nephrology Progress Note ---
Date of Service September 11, 2022 Assessment & Plan (1) End-stage renal disease on hemodialysis: Plan: HD MWF at [facility].Outpatient Rx 3.25 hrs 180 optiflux, 350 Qb, Qd 600, 2K bath, Na 137, HCO3 36. EDW 67.5 kg. Orders for HD today entered into the EHR and reviewed with manager dialysis. AVF with good thrill and bruit. Medications appropriately dosed for kidney function. Renal diet. Daily 1.5 L fluid restriction. Sevelamer QAC for hyperphosphatemia. Repeat metabolic profile tomorrow AM for hyperkalemia. (2) Anemia: Plan: Venofer 100 mg IV and Epogen 32506 units with HD 09/09. Additional 100 mg IV venofer with HD today. (3) Atrial tachycardia: Plan: Metoprolol succinate titrated per cardiology. BP acceptable. Amlodipine appropriate dose reduced. Cardiology following. HD today for electrolyte abnormalities and UF. Repeat serum metabolic profile tomorrow AM. (4) Status post total right knee replacement: Plan: POD#3 s/p R TKA by Dr. Jarvis. Anticipated inpatient rehab at discharge. Admission and Anticipated Discharge Date Admission Date: September 08, 2022 Subjective Resting comfortably in bed this AM. Continues to report some intermittent palpitations and shortness of breath. No fevers or chills. Denies significant pain. Overall, Juventino reports improvement. No chest pains. MAT on tele. Review of Systems Review of Systems: All systems reviewed & are unremarkable except as noted in HPI & below Physical Exam Constitutional: well developed; no acute distress Eyes: no scleral abnormality and no corneal abnormality ENMT: Mouth: no oral mucosal abnormality and oral mucous membranes not dry Neck: normal visual inspection and trachea midline Respiratory: normal respiratory effort Auscultation: lungs clear to auscultation bilaterally Cardiovascular: Rate/Rhythm: + irregularly irregular Heart Sounds: normal S1, normal S2 and + murmur Extremities: + edema and + AV fistula Musculoskeletal: Extremities: no cyanosis and no clubbing Skin: normal turgor and + pallor; no jaundice Neurologic: Motor/Sensory: no tremor and no asterixis Psychiatric: Orientation: alert and oriented x 3 Results & Data Vital Signs (Past 12 Hours) Vital Signs Temp Pulse Pulse Pulse Resp BP BP 09/11/22 08:06 37.0 C 115 H 147/95 H 09/11/22 02:44 37.0 C 96 H 18 152/75 H 09/10/22 23:00 131 H 09/10/22 23:49 106 H 139/81 09/10/22 23:38 36.8 C 91 H 17 139/81 Pulse Ox O2 Del Method O2 Flow Rate 09/11/22 08:06 97 Nasal Cannula 1 09/11/22 02:44 95 Nasal Cannula 2 09/10/22 23:00 09/10/22 23:49 09/10/22 23:38 94 Nasal Cannula 1 Laboratory Results Laboratory Results - last 24 hr 09/11/22 09/11/22 06:43 06:44 WBC 7.52 RBC 3.01 L Hgb 7.8 L Hct 25.1 L MCV 83.4 MCH 25.9 MCHC 31.1 L RDW Std Deviation 44.3 RDW Coeff of Luis 14.7 H Plt Count 166 MPV 10.9 Immature Gran % (Auto) 0.5 Neut % (Auto) 69.0 Lymph % (Auto) 16.4 [place] % (Auto) 9.3 Eos % (Auto) 4.3 Baso % (Auto) 0.5 Neut # (Auto) 5.19 Lymph # (Auto) 1.23 [place] # (Auto) 0.70 H Eos # (Auto) 0.32 Baso # (Auto) 0.04 Immature Gran # (Auto) 0.04 Sodium 131 L Potassium 6.0 H Chloride 95 L Carbon Dioxide 25 Anion Gap 11 BUN 74 H D Creatinine 6.57 H* D Est Cr Clr Drug Dosing 6.6 Est GFR ( Amer) 6.5 Est GFR (Non-Af Amer) 5.6 BUN/Creatinine Ratio 11.3 Glucose 90 Calcium 9.1 PG Care Time/CCT Total # of Minutes Spent Total Time Spent with Patient: Total time spent is greater than 50% in coordination of care (as documented) at patient's floor/unit and/or counseling patient: Coding Level of Care Code 59495 SUB INP/OBS CARE 3/50MIN Diagnoses End-stage renal disease on hemodialysis N18.6; Z99.2 Anemia D64.9 Atrial tachycardia I47.1 Status post total right knee replacement Z96.651
[2022-09-11] MEDS ORDERED: IRON SUCROSE 100 MG in SYRINGE 0 ML IV SCH (11:00)
--- NOTE | 2022-09-11 11:26 | Orthopedic Progress Note ---
Date of Service September 11, 2022 Assessment & Plan (1) Status post total right knee replacement: Patient is postop day 3 from right knee replacement. She is got multiple medical comorbidities. She seems to be medically stable. As she is getting dialysis today. As she is neurologically intact. Plan: 1. DVT prophylaxis glucide teds SCDs and aspirin twice a day. 2. [id number] as tolerated. Right total knee protocol. 3. Medical management as per the medicine service. 4. Pain control doing well with current pain regimen 5. Disposition plan is to discharge to [facility]. She appears medically stable for placement. We are awaiting for a bed availability and with dialysis potential. Subjective . 76-year-old female with multiple medical comorbidities now postop day 3 from a right total knee replacement. She is doing reasonably well. Pain is reasonably well controlled. Therapy is going okay. Denies any chest pain or shortness of breath. Not feeling dizzy or lightheaded. Review of Systems All systems reviewed & are unremarkable except as noted in HPI & below. Physical Exam . Physical examination was a pleasant elderly female. She centibar bedside chair and looks pretty comfortable this morning. Examination the right leg reveals the dressing to be clean dry and intact and there is no drainage. She can dorsiflex and plantarflex her foot appropriately. She is neurologically intact. Results & Data Results & Data Laboratory Results . Diagnostic Findings . PG Care Time/CCT Total # of Minutes Spent Total Time Spent with Patient: Total time spent is greater than 50% in coordination of care (as documented) at patient's floor/unit and/or counseling patient: Coding Level of Care Code 62338 Post Operative Follow-Up Diagnoses Status post total right knee replacement Z96.651
--- NOTE | 2022-09-11 12:00 | Electrocardiogram Report ---
Test Reason : Blood Pressure : / mmHG Vent. Rate : 125 BPM Atrial Rate : 125 BPM P-R Int : 122 ms QRS Dur : 110 ms QT Int : 326 ms P-R-T Axes : 046 -55 087 degrees QTc Int : 470 ms Sinus tachycardia Left anterior fascicular block Minimal voltage criteria for LVH, may be normal variant Nonspecific ST abnormality Abnormal ECG When compared with ECG of 09-SEP-2022 08:01, HR has increased by 34 bpm Incomplete right bundle branch block is no longer Present Confirmed by Mika Russell ([id number]) on 09/11/2022 11:59:40 AM Referred By: Benigno Jarvis Confirmed By:Mika Russell
--- NOTE | 2022-09-11 12:02 | Electrocardiogram Report ---
Test Reason : Blood Pressure : / mmHG Vent. Rate : 079 BPM Atrial Rate : 079 BPM P-R Int : 168 ms QRS Dur : 110 ms QT Int : 360 ms P-R-T Axes : 000 -52 060 degrees QTc Int : 412 ms Sinus rhythm with frequent Premature atrial complexes and a 5-beat run of SVT at 125 bpm (end of trac ing) Left anterior fascicular block Voltage criteria for left ventricular hypertrophy Abnormal ECG When compared with ECG of 10-SEP-2022 23:01, Premature atrial complexes are now Present Vent. rate has decreased BY 46 BPM SVT now intermittent Confirmed by Mika Russell ([id number]) on 09/11/2022 12:02:31 PM Referred By: Benigno Jarvis Confirmed By:Mika Russell
--- NOTE | 2022-09-11 12:36 | Hospitalist Progress Note ---
Date of Service September 11, 2022 Assessment & Plan (1) Valvular heart disease: (2) Tachy-michele syndrome: (3) Atrial tachycardia: (4) End-stage renal disease on hemodialysis: (5) Asthma, moderate persistent: (6) Anemia of chronic disease: (7) Aortic stenosis: (8) Sleep apnea: Plan This is a 76-year-old female with PMH of type 2 diabetes, dyslipidemia, asthma, LAUREN and nocturnal hypoxemia on 2 L nasal cannula at bedtime, hypertension, ESRD on MWF dialysis, anemia of chronic disease, pulmonary hypertension and mild aortic stenosis who is POD#0 s/p R TKA by Dr. Jarvis. Our service was consulted due to postop hypoxia and tachycardia. Tachycardia secondary to MAT Evaluated postop in med tele and found to have variable HR 50s -120 EKG with sinus tachycardia, LAD, nonspecific ST and T wave abnormality that appears similar to ECG this AM Telemetry reviewed; history of atrial tachycardia Discussed with cardiology, Betaxolol discontinued and initially started Toprol 50mg twice daily; increased dose to 75 mg twice daily. Post-op hypoxia Does have underlying asthma, LAUREN and known nocturnal hypoxemia on 2L NC at home Chest x-ray reviewed personally; cardiomegaly with pulmonary vascular congestion present and suspected mild pulmonary edema. Underwent dialysis on 09/09 Oxygen saturation 97% on 1 L of nasal cannula. To undergo dialysis on Wednesday. H/o R TKA POD#3 s/p Right Total Knee Arthroplasty(Right) by Dr. Jarvis Per ortho for pain control, wound care,and activities Monitor H&H (pre-op hgb 10.4, EBL 50ml), continue incentive spirometry, PT/OT when appropriate Aspirin 81 mg twice daily for DVT prophylaxis PT OT eval; likely DC to [facility]. ESRD on HD MWF HD, follows with Dr. Monique. [place] [facility] [place] care. Cont home meds, renal diet History of valvular heart disease, mild aortic stenosis Pre-op dobutamine stress echo from 08/05 negative for inducible ischemia, mild mixed valvular heart disease, preserved EF Monitor volume status, will evaluate with chest imaging Anemia of chronic disease History of iron infusions, baseline hgb of 7.8 today. Monitor for now. Asthma Stable. Continue Trelegy inh, rescue albuterol PRN LAUREN, nocturnal hypoxemia Not compliant with CPAP currently but using 2L O2 HS, per patient DM II Diet controlled DVT Ppx: SCDs, aspirin 81mg BID PCP: [facility] Dispo: Admitted to PCU Please note the above document was generated using voice recognition software. It may contain grammatical, syntax or spelling errors. Any formal questions or concerns about the content, text or information contained within the body of this dictation should be directly addressed to the provider for clarification Admission and Anticipated Discharge Date Admission Date: September 08, 2022 Subjective Patient seen and examined at bedside. She is comfortably sitting up on the chair; not in any distress Review of Systems Review of Systems: All systems reviewed & are unremarkable except as noted in Subjective Physical Exam Physical Exam: Constitutional: Alert orient x3 Respiratory: normal respiratory effort, lungs clear to auscultation, no wheeze, rales, rhonchi. Normal insp/exp effort, no accessory muscle use Cardiovascular: RRR, no murmur, no edema Vessels: no JVD or carotid bruit Chest: normal inspection of chest Abdomen: normal bowel sounds, soft, nontender, no hepatosplenomegaly Musculoskeletal: Right leg; dressing C/D/I. AV fistula with bruit and good thrill. Skin: no rashes, warm and dry normal turgor Neurologic: PERRL, EOMI, accommodation nl, no face palsy, no dysarthria CN's II- XI intact bilaterally and moves all extremities Psychiatric: A+Ox3, euthymic affect Results & Data Results & Data Vital Signs (Past 12 Hours) Vital Signs Temp Pulse Pulse Pulse Resp BP BP 09/11/22 12:00 57 L 111/58 L 09/11/22 11:41 56 L 128/73 09/11/22 11:33 36.3 C L 134 H 09/11/22 08:06 37.0 C 115 H 147/95 H 09/11/22 02:44 37.0 C 96 H 18 152/75 H Pulse Ox O2 Del Method O2 Flow Rate 09/11/22 12:00 09/11/22 11:41 09/11/22 11:33 09/11/22 08:06 97 Nasal Cannula 1 09/11/22 02:44 95 Nasal Cannula 2 Laboratory Results Laboratory Results WBC 7.52 K/ul (4.8-10.8) 09/11/22 06:43 RBC 3.01 M/uL (4.20-5.40) L 09/11/22 06:43 Hgb 7.8 g/dl (12.0-16.0) L 09/11/22 06:43 Hct 25.1 % (37.0-47.0) L 09/11/22 06:43 MCV 83.4 fL (80.0-100.0) 09/11/22 06:43 MCH 25.9 pg (25.0-34.0) 09/11/22 06:43 MCHC 31.1 g/dL (32.0-36.0) L 09/11/22 06:43 RDW Std Deviation 44.3 fL (36.4-46.3) 09/11/22 06:43 RDW Coeff of Luis 14.7 % (11.5-14.5) H 09/11/22 06:43 Plt Count 166 K/uL (130-400) 09/11/22 06:43 MPV 10.9 fL (9.4-12.4) 09/11/22 06:43 Immature Gran % (Auto) 0.5 % 09/11/22 06:43 Neut % (Auto) 69.0 % 09/11/22 06:43 Lymph % (Auto) 16.4 % 09/11/22 06:43 Sanborn % (Auto) 9.3 % 09/11/22 06:43 Eos % (Auto) 4.3 % 09/11/22 06:43 Baso % (Auto) 0.5 % 09/11/22 06:43 Neut # (Auto) 5.19 K/uL (1.40-6.50) 09/11/22 06:43 Lymph # (Auto) 1.23 K/uL (1.2-3.4) 09/11/22 06:43 Sanborn # (Auto) 0.70 K/uL (0.11-0.59) H 09/11/22 06:43 Eos # (Auto) 0.32 K/uL (0-0.50) 09/11/22 06:43 Baso # (Auto) 0.04 K/uL (0-0.2) 09/11/22 06:43 Immature Gran # (Auto) 0.04 K/uL (0.01-0.20) 09/11/22 06:43 Absolute Nucleated RBC 0.02 K/uL (0-0.12) 09/09/22 05:32 Nucleated RBC % (auto) 0.3 % 09/09/22 05:32 Sodium 131 mmol/L (136-145) L 09/11/22 06:44 Potassium 6.0 mmol/L (3.5-5.1) H 09/11/22 06:44 Chloride 95 mmol/L (98-107) L 09/11/22 06:44 Carbon Dioxide 25 mmol/L (21-32) 09/11/22 06:44 Anion Gap 11 (3-11) 09/11/22 06:44 BUN 74 mg/dl (6-23) H D 09/11/22 06:44 Creatinine 6.57 mg/dl (0.6-1.2) H* D 09/11/22 06:44 Est Cr Clr Drug Dosing 6.6 ml/min 09/11/22 06:44 Est GFR ( Amer) 6.5 ml/min 09/11/22 06:44 Est GFR (Non-Af Amer) 5.6 ml/min 09/11/22 06:44 BUN/Creatinine Ratio 11.3 (10-20) 09/11/22 06:44 Glucose 90 mg/dl (70-99(Fasting)) 09/11/22 06:44 POC Glucose 137 mg/dl (70-99) H 09/09/22 07:36 Calcium 9.1 mg/dl (8.6-10.3) 09/11/22 06:44 SARS-CoV-2, RNA, NAAT NEGATIVE (NEGATIVE) 09/08/22 Unknown Impressions Knee X-Ray 09/08/22 11:23 RIGHT KNEE 2 VIEWS History: Right total knee arthroplasty. Degenerative arthritis. Postop. FINDINGS: The patient is status post a right total knee arthroplasty. The hardware is intact. No fracture or dislocation. Skin tee are in place. IMPRESSION: Right total knee arthroplasty. No evidence for hardware complication. ACT 112: Negative or not required by law. Electronically signed by: Guilherme Rome M.D. 09/08/2022 12:01 PM Chest X-Ray 09/08/22 15:15 XR chest 1V portable CLINICAL HISTORY: Hypoxia. COMPARISON STUDY: Chest CT January 26, 2022. Chest radiograph June 23, 2022. FINDINGS: Moderate elevation of the right hemidiaphragm has increased. There is no pneumothorax. There are suspected small bilateral pleural effusions. Cardiomegaly is unchanged. A large hiatal hernia is again noted. There is pulmonary vascular congestion with suspected mild interstitial pulmonary edema. Mild asymmetric right lung airspace opacities are present. IMPRESSION: 1. Cardiomegaly with pulmonary vascular congestion and suspected mild pulmonary edema. Mild asymmetric right lung airspace opacities could reflect alveolar pulmonary edema or a superimposed infectious process. Radiographic follow-up is recommended. 2. Small bilateral pleural effusions. 3. Slight increase in elevation of the right hemidiaphragm. ACT 112: Negative or not required by law. Electronically signed by: Bright Duran M.D. 09/08/2022 4:38 PM
[2022-09-11] MEDS: METOCLOPRAMIDE HCL INJ 5 MG/ML 2 ML VIAL IV PRN (13:15)
[2022-09-11] MEDS: oxyCODONE HCL IR 5 MG TAB (IMMEDIATE RELEASE) PO PRN (18:04)
--- NOTE | 2022-09-21 06:46 | Discharge Summary ---
Date of Service September 21, 2022 Discharge Data Consultations 09/08/22 12:30 Consult Hospitalist Routine 09/08/22 13:46 Consult Cardiology Routine 09/09/22 07:05 Consult Nephrology Routine Procedures Performed Operation Date: 09/08/22 08:40 Actual Procedures p Right Total Knee Arthroplasty(Right) - Benigno Jarvis MD Hospital Course (1) Status post total right knee replacement: This is a 76 year old patient admitted on 09/08/22 and underwent total knee arthroplasty. She tolerated the procedure well and there were no complications. Transferred to the PACU post op and later to telemetry unit for further care due to post op sinus tachycardia. Cardiology service and hospitalist service were consulted for further medical management. Nephrology was also consulted to assist with dialysis management. She was given ancef for antibiotic prophylaxis. She was also given TAVIA stockings, SCDs, and aspirin for DVT prophylaxis. H emoglobin, hematocrit, and vital signs were monitored during their hospital stay and remained stable. Did not require any blood transfusions. There were no complications during their hospital stay. By post op day #3 the patient was tolerating a diabetic diet, pain was reasonably controlled with oral pain medicine, and she was participating in physical therapy. On post op day #3 the patient was discharged to a rehab facility. She was given printed discharge instructions including prescriptions for extra strength tylenol, aspirin, zofran, and oxycodone. Continue physical therapy, weight bearing as tolerated. Continue TAVIA stockings. Follow up approximately 2 weeks post op or sooner if there are problems or concerns. Coding Level of Care Code None Diagnoses Status post total right knee replacement Z96.651
== END 2022-09-11 20:25 | DRG 469 ==
LOC: ASU 06:39 → 2N 11:23 → 2E 13:40
DX: E78.00 Pure hypercholesterolemia, unspecified; M17.0 Bilateral primary osteoarthritis of knee; E11.22 Type 2 diabetes mellitus with diabetic chronic kidney disease; M11.261 Other chondrocalcinosis, right knee; Z99.2 Dependence on renal dialysis; Z79.51 Long term (current) use of inhaled steroids; I08.3 Combined rheumatic disorders of mitral, aortic and tricuspid valves; J45.40 Moderate persistent asthma, uncomplicated; I97.191 Other postprocedural cardiac functional disturbances following other surgery; I47.1 Supraventricular tachycardia; M85.88 Other specified disorders of bone density and structure, other site; K21.9 Gastro-esophageal reflux disease without esophagitis; I13.2 Hypertensive heart and chronic kidney disease with heart failure and with stage 5 chronic kidney disease, or end stage renal disease; I27.22 Pulmonary hypertension due to left heart disease; E89.0 Postprocedural hypothyroidism; Z99.81 Dependence on supplemental oxygen; Z91.048 Other nonmedicinal substance allergy status; G47.33 Obstructive sleep apnea (adult) (pediatric); R09.02 Hypoxemia; M11.262 Other chondrocalcinosis, left knee; I50.32 Chronic diastolic (congestive) heart failure; M21.061 Valgus deformity, not elsewhere classified, right knee; D63.1 Anemia in chronic kidney disease; Z79.82 Long term (current) use of aspirin; N18.6 End stage renal disease; Z20.822 Contact with and (suspected) exposure to COVID-19; I49.5 Sick sinus syndrome; Z75.1 Person awaiting admission to adequate facility elsewhere

== ENCOUNTER 2022-10-04 18:59 | Inpatient (IN) ==
[2022-10-04] MEDS ORDERED: NITROGLYCERIN 2% OINTMENT 30GM TUBE EXT STA (19:15)
--- NOTE | 2022-10-04 19:21 | Emergency Department Note ---
Impression & Plan SOB (shortness of breath), CHF (congestive heart failure), Anemia, Dialysis patient ED Provider Note NAME: ANYA LISA AGE: 76 SEX: F : 1945 ARRIVES VIA: Ambulance INFORMANT: [Patient][daughter] ED PROVIDER(S): [Kwan Bass MD] CHIEF COMPLAINT: Shortness of breath HISTORY OF PRESENT ILLNESS: The patient is a 76-year-old female who has asthma. She is on dialysis Wednesday, Wednesday and Wednesday. Her last dialysis was 2 days ago and she is due tomorrow. She did have a right knee replacement just over 3 weeks ago. The patient states that she has been short of breath all day, she cannot lay flat. She has had to use her oxygen all day today which is unusual. She tried albuterol without relief. She thinks she may be fluid overloaded as she has had this problem once before. There is no increased cough, no fever. She has a tightness across her chest but no real chest pain. She has never had a DVT or PE. She is on aspirin therapy, no stronger anticoagulants. Of note, the patient states that she did drop her hemoglobin with her knee surgery. She did not require a packed red blood cell transfusion. Last hemoglobin check was around 8. She had dropped to 7 with the surgery. PMHx/PSHx: See Below SOCIAL HISTORY: See Below. PHYSICAL EXAM: GENERAL: Patient is in no acute distress. HEENT: No acute trauma, normocephalic atraumatic, mucous membranes moist, no nasal congestion. NECK: No stridor, no adenopathy, no meningismus, trachea is midline. LUNGS: Crackles in the lower lung miles, mostly on the right. She does have an increased respiratory rate, no wheezing HEART: 2/6 systolic murmur, regular rate and rhythm. ABDOMEN: Soft, nontender, bowel sounds positive, no peritonitis. EXTREMITIES: No cyanosis, mild bilateral pedal edema with a tight stocking on the right leg. NEUROLOGIC: Oriented x 3, no acute motor or sensory deficits, no focal weakness. SKIN: No rash, no jaundice, no diaphoresis. DIFFERENTIAL DIAGNOSIS: CHF, fluid overload, PE, pneumonia, pneumothorax, exacerbation of asthma, [place], anemia, among others. EMERGENCY DEPARTMENT COURSE/PROCEDURES: Prior/Outside records reviewed: Recent orthopedic note. Recent discharge summary. ECG per my interpretation: Indication was shortness of breath. The ECG shows sinus rhythm with PACs. The rate is 70. LVH is present. There is no ST elevation, no PVCs. The QTc is 453. Continuous Cardiac Monitoring per my interpretation: An order was placed for continuous cardiac monitoring. The monitor shows a rate of 68 with normal sinus rhythm. MEDICAL DECISION MAKING: There is no leukocytosis. The patient is anemic however, she has been of late since her knee surgery. Hemoglobin today was 7.7. There was a normal platelet count. No coagulopathy. Creatinine was high consistent with her dialysis need, potassium was normal. Alk phos slightly elevated, the remaining liver enzymes were unremarkable. ECG showed a sinus rhythm with PACs. No ST elevation. Cardiac enzyme testing x1 is slightly elevated. This slight troponin elevation may be secondary to mismatch, her renal disease or potentially cardiac injury. Chest film per my review shows findings of fluid overload and CHF. On exam, the patient had crackles to her lung miles consistent with fluid overload/CHF. The patient was given nitroglycerin paste, she was given a dose of oral aspirin as she was due for this nighttime med. She was given a dose of oral metoprolol succinate as she was due for this nighttime med. I did speak with Dr. Schrader of nephrology. The patient can be dialyzed tomorrow morning. For now, she should be hospitalized. She has done well with treatment here in the ER, she is saturating well on just a small amount of nasal cannula O2. I did speak with the patient and her family, I spoke with case management, the on-call hospitalist was consulted. DISPOSITION: Patient's presentation and findings warrant a hospital stay. Past Med/Surg History Medical History Anemia of chronic disease Aortic stenosis Mild aortic stenosis (ASHLI 1.3-1.4cm2, MG 15.3mmhg) per 03/2022 echo Asthma, moderate persistent AV fistula LUE Bilateral primary osteoarthritis of knee Chronic anemia Hx iron infusions Chronic anemia Diabetes mellitus diet controlled End-stage renal disease on hemodialysis MWF ([facility]) GERD (gastroesophageal reflux disease) Gout History of COVID-19 Most recent 10/2021 ([facility])- symptoms resolved Hyperlipidemia Hypertension Osteoarthritis of knees, bilateral RSV (respiratory syncytial virus pneumonia) Sleep apnea CPAP + 2L HS Surgical History H/O partial thyroidectomy H/O: hysterectomy SANDRA BSO History of appendectomy History of cardiac cath 2017 ([facility])- no stents History of cataract surgery History of cholecystectomy History of colonoscopy History of esophagogastroduodenoscopy (EGD) 10/2021 History of lumbar surgery History of oral surgery salivary gland surgery History of tooth extraction all teeth removed S/P arteriovenous (AV) fistula creation Status post biopsy of kidney kidney disease Family History Daughter Cancer Breast Daughter Cancer Breast Daughter Hypertension Daughter Hypertension Father Diabetes Hypertension Mother Hypertension Brother Diabetes Brother Diabetes Sister Diabetes Sister Diabetes Sister Hypertension Sister Hypertension Other No family history of adverse response to anesthesia Social History Smoking Status: Never smoker Second Hand Exposure: No; Do You Dip or Chew Tobacco: No; Hx Alcohol Use: No Hx Substance Use: No Preferred Language: Divehi Communication Ability: Effective Communication Ability Comment: daughter states her mother can read/write/unders tand greek Physiotherapist'S Assistant Required: No Beliefs That Will Affect Care: None marital status: / Current Living Situation: Family Current Living Situation Comment: Lives with daughter Feels Safe at Home: Yes Assistive Devices: Cane, CPAP, Oxygen - at Night and Walker Allergies Allergies Allergy/AdvReac Type Severity Reaction Status Date / Time pollen extracts Allergy Mild sneezing, Verified 10/04/22 21:00 watery eyes No Known Drug Allergies Allergy Unknown Verified 10/04/22 21:00 Home Meds Home Medications Medication Instructions Recorded Confirmed atorvastatin 40 mg tablet 40 mg PO HS 11/10/18 10/04/22 famotidine 20 mg tablet 20 mg PO AMHS 05/28/21 10/04/22 lidocaine-prilocaine 2.5 %-2.5 % See Rx Instructions topical 05/28/21 10/04/22 topical cream .COMPLEX nitroglycerin 0.4 mg sublingual 0.4 mg sublingual Q5M PRN Chest 05/28/21 10/04/22 tablet (Nitrostat) Pain pantoprazole 40 mg tablet,delayed 40 mg PO DAILYBB 05/28/21 10/04/22 release polyethylene glycol 3350 17 gram 17 g PO BID PRN Constipation 05/28/21 10/04/22 oral powder packet (Miralax) triamcinolone acetonide 0.025 % 1 applic topical BID PRN Rash 05/28/21 10/04/22 lotion fluticasone fur. 100 mcg-umeclid 1 inh inhalation QAM 10/14/21 10/04/22 62.5 mcg-vilant 25 mcg inhalat.powder (Trelegy Ellipta) albuterol sulfate 90 mcg/actuation 2 puff inhalation Q6 PRN Wheezing 01/26/22 10/04/22 aerosol inhaler (Ventolin HFA) fluticasone propionate 50 2 spray intranasal QAM PRN Allergy 01/26/22 10/04/22 mcg/actuation nasal Symptoms spray,suspension isosorbide mononitrate 30 mg 30 mg PO QAM 01/26/22 10/04/22 tablet,extended release 24 hr ondansetron HCl 4 mg tablet 4 mg PO Q8 PRN Nausea 01/26/22 10/04/22 sevelamer carbonate 800 mg tablet 1,600 mg PO TIDM 01/26/22 10/04/22 (Renvela) vit B complx, C-iron 8 mg-folic 1 tab PO QAM 01/26/22 10/04/22 acid 800 mcg-D3 1,000 unit-zinc tablet (ProRenal) amlodipine 2.5 mg tablet 2.5 mg PO QAM 06/15/22 10/04/22 montelukast 5 mg chewable tablet 10 mg PO DAILY PRN allergies 09/08/22 10/04/22 (Singulair) aspirin 81 mg tablet,delayed 81 mg PO DAILY 10/04/22 10/04/22 release tramadol 50 mg tablet 50 mg PO Q4 PRN Pain 10/04/22 10/04/22 Previous Rx's Medication Instructions Recorded acetaminophen 500 mg tablet 1,000 mg PO Q8 30 days #180 tabs 09/11/22 (Tylenol Extra Strength) metoprolol succinate 25 mg 75 mg PO BID 30 days #180 tabs 09/11/22 tablet,extended release 24 hr Results & Data (ED) Vital Signs Vital Signs - 24 hr 10/04/22 19:14 10/04/22 19:05 08/13/23 19:18 Temperature 36.8 C Temperature Source Oral Pulse Rate 69 Pulse Rate from SpO2 Sensor Respiratory Rate 26 H Respiratory Effort / Characteristics Short of Breath SOB on Exertion Blood Pressure 151/90 H Blood Pressure Mean 110 Pulse Oximetry 92 92 Oxygen Delivery Method Room Air Room Air Room Air Oxygen Flow Rate Sepsis Recent Fever Within 48 Hours No Sepsis New/Unexplained Change in Mental Status No Sepsis Action Taken by Nursing No Action Required Fraction of Inspired Oxygen - Titration 2 Pulse Oximetry Post Tiitration 98 10/04/22 19:13 10/04/22 19:38 10/04/22 19:30 Temperature Temperature Source Pulse Rate 68 77 67 Pulse Rate from SpO2 Sensor 63 Respiratory Rate 26 H Respiratory Effort / Characteristics Blood Pressure Blood Pressure Mean Pulse Oximetry 99 98 Oxygen Delivery Method Nasal Cannula Nasal Cannula Oxygen Flow Rate 2 2 Sepsis Recent Fever Within 48 Hours Sepsis New/Unexplained Change in Mental Status Sepsis Action Taken by Nursing Fraction of Inspired Oxygen - Titration Pulse Oximetry Post Tiitration 10/04/22 20:00 Temperature Temperature Source Pulse Rate 65 Pulse Rate from SpO2 Sensor 62 Respiratory Rate 17 Respiratory Effort / Characteristics Blood Pressure Blood Pressure Mean Pulse Oximetry 98 Oxygen Delivery Method Nasal Cannula Oxygen Flow Rate 2 Sepsis Recent Fever Within 48 Hours Sepsis New/Unexplained Change in Mental Status Sepsis Action Taken by Nursing Fraction of Inspired Oxygen - Titration Pulse Oximetry Post Tiitration Home Medications Current Medication List: was personally reviewed by me Laboratory Data Attestation: I reviewed the patient's lab results. 10/04/22 19:07 10/04/22 19:07 Lab Results 10/04/22 10/04/22 10/04/22 Range/Units 19:07 19:07 19:07 WBC 7.09 (4.8-10.8) K/ul RBC 2.91 L (4.20-5.40) M/uL Hgb 7.7 L (12.0-16.0) g/dl Hct 25.6 L (37.0-47.0) % MCV 88.0 (80.0-100.0) fL MCH 26.5 (25.0-34.0) pg MCHC 30.1 L (32.0-36.0) g/dL RDW Std Deviation 51.2 H (36.4-46.3) fL RDW Coeff of Luis 16.5 H (11.5-14.5) % Plt Count 299 (130-400) K/uL MPV 9.3 L (9.4-12.4) fL Immature Gran % (Auto) 0.3 % Neut % (Auto) 68.5 % Lymph % (Auto) 17.5 % [place] % (Auto) 9.2 % Eos % (Auto) 3.8 % Baso % (Auto) 0.7 % Neut # (Auto) 4.86 (1.40-6.50) K/uL Lymph # (Auto) 1.24 (1.2-3.4) K/uL [place] # (Auto) 0.65 H (0.11-0.59) K/uL Eos # (Auto) 0.27 (0-0.50) K/uL Baso # (Auto) 0.05 (0-0.2) K/uL Immature Gran # (Auto) 0.02 (0.01-0.20) K/uL Absolute Nucleated RBC 0.02 (0-0.12) K/uL Nucleated RBC % (auto) 0.3 % Polychromasia 1+ PT 11.0 (9.0-12.0) Seconds INR 1.0 (0.9-1.1) APTT 27.8 (21.0-31.0) Seconds PTT Ratio 1.0 Sodium 137 (136-145) mmol/L Potassium 5.1 (3.5-5.1) mmol/L Chloride 95 L (98-107) mmol/L Carbon Dioxide 33 H (21-32) mmol/L Anion Gap 9 (3-11) BUN 43 H (6-23) mg/dl Creatinine 6.22 H* (0.6-1.2) mg/dl Est Cr Clr Drug Dosing 6.7 ml/min Est GFR ( Amer) 7.0 ml/min Est GFR (Non-Af Amer) 6.0 ml/min BUN/Creatinine Ratio 6.9 L (10-20) Glucose 91 (70-99(Fasting)) mg/dl Calcium 9.2 (8.6-10.3) mg/dl Phosphorus 3.5 (2.5-4.9) mg/dl Magnesium 2.3 (1.7-2.4) mg/dl Total Bilirubin 0.4 (0.2-1.0) mg/dl AST 22 (13-39) U/L ALT 12 (7-52) U/L Alkaline Phosphatase 146 H (34-104) U/L Troponin I High Sens 20.9 H (0-14) pg/ml Total Protein 7.2 (6.0-8.3) gm/dl Albumin 3.7 (3.4-5.0) gm/dl Globulin 3.5 (2.5-4.0) gm/dl Albumin/Globulin Ratio 1.1 (0.9-2) SARS-CoV-2, RNA, NAAT (NEGATIVE) 10/04/22 Range/Units 20:32 WBC (4.8-10.8) K/ul RBC (4.20-5.40) M/uL Hgb (12.0-16.0) g/dl Hct (37.0-47.0) % MCV (80.0-100.0) fL MCH (25.0-34.0) pg MCHC (32.0-36.0) g/dL RDW Std Deviation (36.4-46.3) fL RDW Coeff of Luis (11.5-14.5) % Plt Count (130-400) K/uL MPV (9.4-12.4) fL Immature Gran % (Auto) % Neut % (Auto) % Lymph % (Auto) % [place] % (Auto) % Eos % (Auto) % Baso % (Auto) % Neut # (Auto) (1.40-6.50) K/uL Lymph # (Auto) (1.2-3.4) K/uL [place] # (Auto) (0.11-0.59) K/uL Eos # (Auto) (0-0.50) K/uL Baso # (Auto) (0-0.2) K/uL Immature Gran # (Auto) (0.01-0.20) K/uL Absolute Nucleated RBC (0-0.12) K/uL Nucleated RBC % (auto) % Polychromasia PT (9.0-12.0) Seconds INR (0.9-1.1) APTT (21.0-31.0) Seconds PTT Ratio Sodium (136-145) mmol/L Potassium (3.5-5.1) mmol/L Chloride (98-107) mmol/L Carbon Dioxide (21-32) mmol/L Anion Gap (3-11) BUN (6-23) mg/dl Creatinine (0.6-1.2) mg/dl Est Cr Clr Drug Dosing ml/min Est GFR ( Amer) ml/min Est GFR (Non-Af Amer) ml/min BUN/Creatinine Ratio (10-20) Glucose (70-99(Fasting)) mg/dl Calcium (8.6-10.3) mg/dl Phosphorus (2.5-4.9) mg/dl Magnesium (1.7-2.4) mg/dl Total Bilirubin (0.2-1.0) mg/dl AST (13-39) U/L ALT (7-52) U/L Alkaline Phosphatase (34-104) U/L Troponin I High Sens (0-14) pg/ml Total Protein (6.0-8.3) gm/dl Albumin (3.4-5.0) gm/dl Globulin (2.5-4.0) gm/dl Albumin/Globulin Ratio (0.9-2) SARS-CoV-2, RNA, NAAT NEGATIVE (NEGATIVE) Administered Medications Discontinued Medications Aspirin (Aspirin 81 Mg Ectab) 81 mg PO NOW STA Stop: 10/04/22 20:17 Last Admin: 10/04/22 20:28 Dose: 81 mg Documented By: ARCELIA Metoprolol Succinate (Metoprolol Succ 50mg Ext Rel Tab) 75 mg PO NOW STA Stop: 10/04/22 20:17 Last Admin: 10/04/22 20:28 Dose: 75 mg Documented By: ARCELIA Nitroglycerin (Nitroglycerin 2% Ointment 30gm Tube) 1 inch EXT NOW STA Stop: 10/04/22 19:16 Last Admin: 10/04/22 19:40 Dose: 1 inch Documented By: ARCELIA Imaging Data Radiologist's Impression: Chest X-Ray 10/04/22 19:15 XR chest 1V portable CLINICAL HISTORY: Dyspnea TECHNIQUE: Single frontal radiograph of the chest was obtained. Comparison: Comparison is made to chest radiograph 09/08/2022 FINDINGS: No lines and tubes are seen. Cardiomegaly is noted. The aortic arch is calcified. Multifocal airspace opacities are seen. No evidence of pleural effusion or pneumothorax. IMPRESSION: Multifocal airspace opacities may represent atelectasis, pneumonia, and/or aspiration. ACT 112: Negative or not required by law. Electronically signed by: Maxx Jacobson M.D. 10/04/2022 7:39 PM Discharge Plan Visit Data Chief Complaint: Shortness of Breath/Dyspnea ED Provider: Kwan Bass Discharge Problem: SOB (shortness of breath), CHF (congestive heart failure), Anemia, Dialysis patient Patient Disposition: Admitted As Inpatient Condition: Fair Forms Stand Alone Forms: [facility] [employer] Prescriptions Prescriptions: No Action atorvastatin 40 mg tablet 40 mg PO HS pantoprazole 40 mg tablet,delayed release (DR/EC) 40 mg PO DAILYBB lidocaine-prilocaine 2.5-2.5 % cream See Rx Instructions topical .COMPLEX Rx Instructions: apply small amount to access site (AVF) 1 to 2 hours before dialysis. cover with occlusive dressing (SARAN WRAP) polyethylene glycol 3350 [Miralax] 17 gram powder in packet 17 g PO BID PRN (Reason: Constipation) Rx Instructions: pt uses prn nitroglycerin [Nitrostat] 0.4 mg tablet, sublingual 0.4 mg sublingual Q5M PRN (Reason: Chest Pain) Rx Instructions: do not exceed 3 doses per episode famotidine 20 mg tablet 20 mg PO AMHS triamcinolone acetonide 0.025 % lotion 1 applic topical BID PRN (Reason: Rash) amlodipine 2.5 mg Tablet 2.5 mg PO QAM montelukast [Singulair] 5 mg Tablet,Chewable 10 mg PO DAILY PRN (Reason: allergies) metoprolol succinate 25 mg Tablet Extended Release 24 Hr 75 mg PO BID 30 Days Qty: 180 0RF acetaminophen [Tylenol Extra Strength] 500 mg Tablet 1,000 mg PO Q8 30 Days Qty: 180 0RF Rx Instructions: Take 3 times per day to lessen pain. Trelegy Ellipta 100-62.5-25 mcg Blister With Device 1 inh INHALATION QAM Rx Instructions: rinse after use isosorbide mononitrate 30 mg tablet extended release 24 hr 30 mg PO QAM fluticasone propionate 50 mcg/actuation spray,suspension 2 spray INTRANASAL QAM PRN (Reason: Allergy Symptoms) albuterol sulfate [Ventolin HFA] 90 mcg/actuation HFA aerosol inhaler 2 puff INHALATION Q6 PRN (Reason: Wheezing) sevelamer carbonate [Renvela] 800 mg tablet 1,600 mg PO TIDM ondansetron HCl 4 mg tablet 4 mg PO Q8 PRN (Reason: Nausea) Rx Instructions: TAKE ONE TABLET BY MOUTH TWICE DAILY NEEDED FOR NAUSEA / VOMITING ProRenal 8 mg iron-800 mcg-1,000 unit tablet 1 tab PO QAM tramadol 50 mg tablet 50 mg PO Q4 PRN (Reason: Pain) aspirin 81 mg tablet,delayed release (DR/EC) 81 mg PO DAILY Rx Instructions: Take to prevent blood clots. Referrals Referrals: Alberto Yuen MD [Primary Care Provider] -
--- NOTE | 2022-10-04 19:40 | XRay Report ---
XR chest 1V portable CLINICAL HISTORY: Dyspnea TECHNIQUE: Single frontal radiograph of the chest was obtained. Comparison: Comparison is made to chest radiograph 09/08/2022 FINDINGS: No lines and tubes are seen. Cardiomegaly is noted. The aortic arch is calcified. Multifocal airspace opacities are seen. No evidence of pleural effusion or pneumothorax. IMPRESSION: Multifocal airspace opacities may represent atelectasis, pneumonia, and/or aspiration. ACT 112: Negative or not required by law. Electronically signed by: Maxx Jacobson M.D. 10/04/2022 7:39 PM
[2022-10-04 19:50] LABS: Basophils # (auto) 0.05 K/uL (0-0.2); Basophils % (auto) 0.7 %; Eosinophils # (auto) 0.27 K/uL (0-0.50); Eosinophils % (auto) 3.8 %; Hematocrit (blood only) 25.6 % (37.0-47.0); Hemoglobin 7.7 g/dl (12.0-16.0); Immature Granulocytes # (auto) 0.02 K/uL (0.01-0.20); Immature Granulocytes % (auto) 0.3 %; Lymphocytes # (auto) 1.24 K/uL (1.2-3.4); Lymphocytes % (auto) 17.5 %; Mean Corpuscular Hemoglobin 26.5 pg (25.0-34.0); Mean Corpuscular Hgb Conc 30.1 g/dL (32.0-36.0); Mean Platelet Volume 9.3 fL (9.4-12.4); Monocytes # (auto) 0.65 K/uL (0.11-0.59); Monocytes % (auto) 9.2 %; Neutrophils # (auto) 4.86 K/uL (1.40-6.50); Neutrophils % (auto) 68.5 %; Nucleated RBC # (auto) 0.02 K/uL (0-0.12); Nucleated RBC % (auto) 0.3 %; Platelet Count 299 K/uL (130-400); RDW Coefficient of Variation 16.5 % (11.5-14.5); RDW Standard Deviation 51.2 fL (36.4-46.3); Red Blood Count 2.91 M/uL (4.20-5.40); White Blood Count 7.09 K/ul (4.8-10.8)
[2022-10-04 19:55] LABS: Albumin Globulin Ratio 1.1 (0.9-2); Albumin Level 3.7 gm/dl (3.4-5.0); BUN Creatinine Ratio 6.9 (10-20); Bilirubin,Total 0.4 mg/dl (0.2-1.0); Calcium 9.2 mg/dl (8.6-10.3); Creatinine Clr Calc Pharmacy 6.7 ml/min; Globulin 3.5 gm/dl (2.5-4.0); Magnesium 2.3 mg/dl (1.7-2.4); Phosphorus 3.5 mg/dl (2.5-4.9); Potassium 5.1 mmol/L (3.5-5.1); Total Protein 7.2 gm/dl (6.0-8.3)
[2022-10-04 20:03] LABS: Partial Thromboplastin Time 27.8 Seconds (21.0-31.0)
[2022-10-04] MEDS ORDERED: METOPROLOL SUCC 50MG EXT REL TAB PO STA (20:16)
[2022-10-04] MEDS ORDERED: ASPIRIN 81 MG ECTAB PO STA (20:16)
[2022-10-04 20:28] LABS: Polychromasia 1+
[2022-10-04 20:31] LABS: Troponin I High Sensitivity 20.9 pg/ml (0-14)
[2022-10-04] MEDS ORDERED: ALBUT/IPRATROP 3MG/0.5MG NEB 3 ML VIAL NEB STA (21:26)
--- NOTE | 2022-10-04 22:30 | History & Physical Report ---
Date of Service October 04, 2022 Assessment & Plan (1) Acute hypoxemic respiratory failure: Plan: Secondary to fluid overload History ESRD on HD hx diastolic dysfunction (EF 60%, TTE 2022) Troponin elevation secondary to above Postop anemia, recent knee surgery, hemoglobin stable at 7, patient daughter inquiring about need for PRBC transfusion valvular heart disease (mild AR/MR/TR) LAUREN on CPAP, pulmonary hypertension HTN, slightly elevated hyperlipidemia on statin Rx bronchial asthma, not in acute exacerbation DM2 diet-controlled, well-controlled as of recent hemoglobin A1c of 5 this year PCU supplemental O2 Baseline ABG stat nebs, IV Lasix dose for renal function for now (patient still makes minimal urine) Nephrology consult Re: Dialysis management (ER provider already in touch with Dr. Schrader.) Follow troponin, TTE for progression ISS BG goal 1 10-1 40, carb count coverage DVT prophylaxis. Heparin subcu Full code Total total care time was 40 minutes. Patient daughter requesting updates providers. Dr. Jenny Ward, contact #[phone]. Patient daughter requested undersigned to check with Dr. Schrader regarding IV Lasix recommendation. Dr. Schrader agreeable to Lasix 100 mg IV 1 dose. He also recommends obtaining blood type and screen for patient for prospective transfusion tomorrow postdialysis. Text document was generated using [employer] voice recognition software. It may contain grammatical or spelling errors. Kindly contact undersigned for clarification of any documentation item in question. History of Present Illness Chief Complaint: Worsening shortness of breath Primary Care Provider: Alberto Yuen MD History obtained from patient, family, and records. Medical history significant for diastolic dysfunction (EF 60%, TTE 2022), valvular heart disease (mild AR/MR/TR), LAUREN on CPAP, pulmonary hypertension, HTN, hyperlipidemia, ESRD on HD, bronchial asthma, DM2 diet-controlled, GERD. Recent confinement September 08 to 2022 under Orthopedics service for elective right TKR. Patient noted to have multifocal atrial tachycardia and post op hypoxemia. Cardiology discontinued patient's betaxolol Rx and started patient on Toprol. Patient with worsening shortness of breath over the last few days, more pronounced on exertion. Patient orthopneic. No unusual cough symptoms. No chest pain. Patient compliant with dialysis sessions. Patient brought by daughter to ER for evaluation. Nitropaste administered at the ER. O2 sats dropped to 80s on ambulation back to bed from the bathroom. Medical History as above Surgical History : Right knee surgery, appendectomy, hysterectomy, thyroidectomy, back surgery, vascular procedures, cataract surgery, spinal tumor removal/biopsy partial thyroidectomy Family History : Breast cancer, DM, hypertension Personal/Social history : Non-smoker, no EtOH intake, homemaker in her younger years Allergies Allergy/AdvReac Type Severity Reaction Status Date / Time pollen extracts Allergy Mild sneezing, Verified 10/04/22 21:00 watery eyes No Known Drug Allergies Allergy Unknown Verified 10/04/22 21:00 Home Medications Medication Instructions Recorded Confirmed Type atorvastatin 40 mg tablet 40 mg PO HS 11/10/18 10/04/22 History famotidine 20 mg tablet 20 mg PO AMHS 05/28/21 10/04/22 History lidocaine-prilocaine 2.5 %-2.5 % See Rx Instructions topical 05/28/21 10/04/22 History topical cream .COMPLEX nitroglycerin 0.4 mg sublingual 0.4 mg sublingual Q5M PRN Chest 05/28/21 10/04/22 History tablet (Nitrostat) Pain pantoprazole 40 mg tablet,delayed 40 mg PO DAILYBB 05/28/21 10/04/22 History release polyethylene glycol 3350 17 gram 17 g PO BID PRN Constipation 05/28/21 10/04/22 History oral powder packet (Miralax) triamcinolone acetonide 0.025 % 1 applic topical BID PRN Rash 05/28/21 10/04/22 History lotion fluticasone fur. 100 mcg-umeclid 1 inh inhalation QAM 10/14/21 10/04/22 History 62.5 mcg-vilant 25 mcg inhalat.powder (Trelegy Ellipta) albuterol sulfate 90 mcg/actuation 2 puff inhalation Q6 PRN Wheezing 01/26/22 10/04/22 History aerosol inhaler (Ventolin HFA) fluticasone propionate 50 2 spray intranasal QAM PRN Allergy 01/26/22 10/04/22 History mcg/actuation nasal Symptoms spray,suspension isosorbide mononitrate 30 mg 30 mg PO QAM 01/26/22 10/04/22 History tablet,extended release 24 hr ondansetron HCl 4 mg tablet 4 mg PO Q8 PRN Nausea 01/26/22 10/04/22 History sevelamer carbonate 800 mg tablet 1,600 mg PO TIDM 01/26/22 10/04/22 History (Renvela) vit B complx, C-iron 8 mg-folic 1 tab PO QAM 01/26/22 10/04/22 History acid 800 mcg-D3 1,000 unit-zinc tablet (ProRenal) amlodipine 2.5 mg tablet 2.5 mg PO QAM 06/15/22 10/04/22 History montelukast 5 mg chewable tablet 10 mg PO DAILY PRN allergies 09/08/22 10/04/22 History (Singulair) acetaminophen 500 mg tablet 1,000 mg PO Q8 30 days #180 tabs 09/11/22 10/04/22 Rx (Tylenol Extra Strength) metoprolol succinate 25 mg 75 mg PO BID 30 days #180 tabs 09/11/22 10/04/22 Rx tablet,extended release 24 hr aspirin 81 mg tablet,delayed 81 mg PO DAILY 10/04/22 10/04/22 History release tramadol 50 mg tablet 50 mg PO Q4 PRN Pain 10/04/22 10/04/22 History Past Med/Surg History Medical History Anemia of chronic disease Aortic stenosis Mild aortic stenosis (ASHLI 1.3-1.4cm2, MG 15.3mmhg) per 03/2022 echo Asthma, moderate persistent AV fistula LUE Bilateral primary osteoarthritis of knee Chronic anemia Hx iron infusions Chronic anemia Diabetes mellitus diet controlled End-stage renal disease on hemodialysis MWF ([facility]) GERD (gastroesophageal reflux disease) Gout History of COVID-19 Most recent 10/2021 ([facility])- symptoms resolved Hyperlipidemia Hypertension Osteoarthritis of knees, bilateral RSV (respiratory syncytial virus pneumonia) Sleep apnea CPAP + 2L HS Surgical History H/O partial thyroidectomy H/O: hysterectomy SANDRA BSO History of appendectomy History of cardiac cath 2017 ([facility])- no stents History of cataract surgery History of cholecystectomy History of colonoscopy History of esophagogastroduodenoscopy (EGD) 10/2021 History of lumbar surgery History of oral surgery salivary gland surgery History of tooth extraction all teeth removed S/P arteriovenous (AV) fistula creation Status post biopsy of kidney kidney disease Family History Daughter Cancer Breast Daughter Cancer Breast Daughter Hypertension Daughter Hypertension Father Diabetes Hypertension Mother Hypertension Brother Diabetes Brother Diabetes Sister Diabetes Sister Diabetes Sister Hypertension Sister Hypertension Other No family history of adverse response to anesthesia Social History Smoking Status: Never smoker Second Hand Exposure: No; Do You Dip or Chew Tobacco: No; Hx Alcohol Use: No Hx Substance Use: No Preferred Language: Mauritian Communication Ability: Effective Communication Ability Comment: daughter states her mother can read/write/understand [place] Account Representative Required: No Beliefs That Will Affect Care: None marital status: / Current Living Situation: Family Current Living Situation Comment: Lives with daughter Other Information That Helps Us Care for You: No Feels Safe at Home: Yes Safety Concerns: Feels Safe At This Time Assistive Devices: Cane, CPAP, Oxygen - at Night and Walker Review of Systems Review of Systems: As per HPI, all other systems reviewed and negative Physical Exam Physical Exam: GENERAL: Slightly uncomfortable, minimal respiratory distress SKIN: Pallor, warm HEENT: Pale palpebral conjunctivae, no ptosis, dry buccal mucosa, nasal cannula in place NECK : Supple, no tenderness CHEST : Decreased breath sounds, bibasilar crackles, no tenderness HEART : RRR, no obvious murmurs ABDOMEN: Some distention, nontender EXTREMITIES : RLE swelling, no LE tenderness, no other conspicuous deformities noted NEUROLOGIC : Coherent, no facial asymmetry, no other gross focality Results & Data Results & Data Vital Signs (Past 12 Hours) Vital Signs Temp Pulse Resp BP Pulse Ox O2 Del Method O2 Flow Rate 10/04/22 20:00 65 17 98 Nasal Cannula 2 10/04/22 19:30 67 26 H 98 Nasal Cannula 2 10/04/22 19:38 77 99 Nasal Cannula 2 10/04/22 19:13 68 10/04/22 19:18 92 Room Air 10/04/22 19:05 36.8 C 69 26 H 151/90 H 92 Room Air 10/04/22 19:14 Room Air Laboratory Results Laboratory Results WBC 7.09 K/ul (4.8-10.8) 10/04/22 19:07 RBC 2.91 M/uL (4.20-5.40) L 10/04/22 19:07 Hgb 7.7 g/dl (12.0-16.0) L 10/04/22 19:07 Hct 25.6 % (37.0-47.0) L 10/04/22 19:07 MCV 88.0 fL (80.0-100.0) 10/04/22 19:07 MCH 26.5 pg (25.0-34.0) 10/04/22 19:07 MCHC 30.1 g/dL (32.0-36.0) L 10/04/22 19:07 RDW Std Deviation 51.2 fL (36.4-46.3) H 10/04/22 19:07 RDW Coeff of Luis 16.5 % (11.5-14.5) H 10/04/22 19:07 Plt Count 299 K/uL (130-400) 10/04/22 19:07 MPV 9.3 fL (9.4-12.4) L 10/04/22 19:07 Immature Gran % (Auto) 0.3 % 10/04/22 19:07 Neut % (Auto) 68.5 % 10/04/22 19:07 Lymph % (Auto) 17.5 % 10/04/22 19:07 [place] % (Auto) 9.2 % 10/04/22 19:07 Eos % (Auto) 3.8 % 10/04/22 19:07 Baso % (Auto) 0.7 % 10/04/22 19:07 Neut # (Auto) 4.86 K/uL (1.40-6.50) 10/04/22 19:07 Lymph # (Auto) 1.24 K/uL (1.2-3.4) 10/04/22 19:07 [place] # (Auto) 0.65 K/uL (0.11-0.59) H 10/04/22 19:07 Eos # (Auto) 0.27 K/uL (0-0.50) 10/04/22 19:07 Baso # (Auto) 0.05 K/uL (0-0.2) 10/04/22 19:07 Immature Gran # (Auto) 0.02 K/uL (0.01-0.20) 10/04/22 19:07 Absolute Nucleated RBC 0.02 K/uL (0-0.12) 10/04/22 19:07 Nucleated RBC % (auto) 0.3 % 10/04/22 19:07 Polychromasia 1+ 10/04/22 19:07 PT 11.0 Seconds (9.0-12.0) 10/04/22 19:07 INR 1.0 (0.9-1.1) 10/04/22 19:07 APTT 27.8 Seconds (21.0-31.0) 10/04/22 19:07 PTT Ratio 1.0 10/04/22 19:07 Sodium 137 mmol/L (136-145) 10/04/22 19:07 Potassium 5.1 mmol/L (3.5-5.1) 10/04/22 19:07 Chloride 95 mmol/L (98-107) L 10/04/22 19:07 Carbon Dioxide 33 mmol/L (21-32) H 10/04/22 19:07 Anion Gap 9 (3-11) 10/04/22 19:07 BUN 43 mg/dl (6-23) H 10/04/22 19:07 Creatinine 6.22 mg/dl (0.6-1.2) H* 10/04/22 19:07 Est Cr Clr Drug Dosing 6.7 ml/min 10/04/22 19:07 Est GFR ( Amer) 7.0 ml/min 10/04/22 19:07 Est GFR (Non-Af Amer) 6.0 ml/min 10/04/22 19:07 BUN/Creatinine Ratio 6.9 (10-20) L 10/04/22 19:07 Glucose 91 mg/dl (70-99(Fasting)) 10/04/22 19:07 Calcium 9.2 mg/dl (8.6-10.3) 10/04/22 19:07 Phosphorus 3.5 mg/dl (2.5-4.9) 10/04/22 19:07 Magnesium 2.3 mg/dl (1.7-2.4) 10/04/22 19:07 Total Bilirubin 0.4 mg/dl (0.2-1.0) 10/04/22 19:07 AST 22 U/L (13-39) 10/04/22 19:07 ALT 12 U/L (7-52) 10/04/22 19:07 Alkaline Phosphatase 146 U/L (34-104) H 10/04/22 19:07 Troponin I High Sens 20.9 pg/ml (0-14) H 10/04/22 19:07 Total Protein 7.2 gm/dl (6.0-8.3) 10/04/22 19:07 Albumin 3.7 gm/dl (3.4-5.0) 10/04/22 19:07 Globulin 3.5 gm/dl (2.5-4.0) 10/04/22 19:07 Albumin/Globulin Ratio 1.1 (0.9-2) 10/04/22 19:07 SARS-CoV-2, RNA, NAAT NEGATIVE (NEGATIVE) 10/04/22 20:32 Impressions Chest X-Ray 10/04/22 19:15 XR chest 1V portable CLINICAL HISTORY: Dyspnea TECHNIQUE: Single frontal radiograph of the chest was obtained. Comparison: Comparison is made to chest radiograph 09/08/2022 FINDINGS: No lines and tubes are seen. Cardiomegaly is noted. The aortic arch is calcified. Multifocal airspace opacities are seen. No evidence of pleural effusion or pneumothorax. IMPRESSION: Multifocal airspace opacities may represent atelectasis, pneumonia, and/or aspiration. ACT 112: Negative or not required by law. Electronically signed by: Maxx Jacobson M.D. 10/04/2022 7:39 PM Diagnostic Findings EKG as per my interpretation :Rate 70, NSR, LAD, LAFB, incomplete RBBB, LVH, T wave abnormality septal leads, PVCs
[2022-10-04] MEDS ORDERED: traMADol HCL 50 MG TABLET PO PRN (22:44)
[2022-10-04] MEDS ORDERED: PROMETHAZINE HCL 6.25 MG in SODIUM CHLORIDE 0.9% 50 ML IV PRN (22:44)
[2022-10-04] MEDS ORDERED: FUROSEMIDE 40 MG/4 ML VIAL IV ONE (22:45)
[2022-10-04 23:21] LABS: Base Excess ABG 5.3 mEq/L (-9-1.8); HCO3 ABG 31 mmol/L (19-24); Oxygen Saturation ABG 94.5 % (90-95); PCO2 ABG 49 mmHg (35-46); PO2 ABG 66 mmHg (80-95); pH ABG 7.41 (7.35-7.45)
[2022-10-04] MEDS ORDERED: LIDOCAINE/PRILOCAINE 2.5% EA CRM EXT PRN (23:58)
[2022-10-04] MEDS ORDERED: FLUTICASONE PROPIONATE NA SPR 16 GM BTL PRN (23:58)
[2022-10-04] MEDS ORDERED: NITROGLYCERIN SL 0.4 MG/TAB TAB SL PRN (23:58)
[2022-10-04] MEDS ORDERED: MONTELUKAST SOD 5 MG CHEWABLE TAB PO PRN (23:58)
[2022-10-05] MEDS: amLODIPine BESYLATE 5 MG TAB PO SCH (01:19)
[2022-10-05] MEDS ORDERED: LORazepam 0.5 MG TAB PO PRN ×2 (03:11→03:41)
[2022-10-05] MEDS ORDERED: amLODIPine BESYLATE 5 MG TAB PO ONE (03:12)
[2022-10-05 04:13] LABS: Basophils # (auto) 0.04 K/uL (0-0.2); Basophils % (auto) 0.5 %; Eosinophils % (auto) 3.8 %; Hematocrit (blood only) 25.8 % (37.0-47.0); Hemoglobin 7.9 g/dl (12.0-16.0); Immature Granulocytes # (auto) 0.02 K/uL (0.01-0.20); Immature Granulocytes % (auto) 0.3 %; Lymphocytes # (auto) 0.93 K/uL (1.2-3.4); Lymphocytes % (auto) 11.9 %; Mean Corpuscular Hemoglobin 26.7 pg (25.0-34.0); Mean Corpuscular Hgb Conc 30.6 g/dL (32.0-36.0); Mean Corpuscular Volume 87.2 fL (80.0-100.0); Monocytes # (auto) 0.59 K/uL (0.11-0.59); Monocytes % (auto) 7.6 %; Neutrophils # (auto) 5.92 K/uL (1.40-6.50); Neutrophils % (auto) 75.9 %; Platelet Count 301 K/uL (130-400); RDW Coefficient of Variation 16.4 % (11.5-14.5); RDW Standard Deviation 50.9 fL (36.4-46.3); Red Blood Count 2.96 M/uL (4.20-5.40)
[2022-10-05 04:35] LABS: BUN Creatinine Ratio 6.9 (10-20); Calcium 9.5 mg/dl (8.6-10.3); Creatinine Clr Calc Pharmacy 6.4 ml/min; Est GFR (African American) 6.6 ml/min; Est GFR (Non-African American) 5.7 ml/min; Potassium 4.9 mmol/L (3.5-5.1)
[2022-10-05 04:38] LABS: Troponin I High Sensitivity 23.7 pg/ml (0-14)
[2022-10-05 04:50] LABS: Polychromasia 1+
[2022-10-05 04:51] LABS: Partial Thromboplastin Ratio 1.1; Partial Thromboplastin Time 30.5 Seconds (21.0-31.0)
[2022-10-05] MEDS ORDERED: traMADol HCL 50 MG TABLET PO STA (05:20)
[2022-10-05] MEDS ORDERED: LORazepam 0.5 MG TAB PO STA (05:21)
[2022-10-05] MEDS ORDERED: LABETALOL HCL IV 5 MG/ML 20ML IV STA (05:22)
[2022-10-05] MEDS ORDERED: RAPID SEQUENCE INDUCTION BAG ONE (05:49)
[2022-10-05] MEDS ORDERED: FUROSEMIDE 40 MG/4 ML VIAL IV STA (05:52)
[2022-10-05] MEDS ORDERED: ACETAMINOPHEN 500 MG TAB PO SCH (06:00)
--- NOTE | 2022-10-05 06:05 | Communication Note ---
Date of Service: October 05, 2022 Code lucy called at 5:40 AM. Patient complaining of chest heaviness around 5:20 AM. SBP 180s as per RN. Patient became unresponsive after being laid down flat to obtain EKG. Eyes rolled back followed by emesis as per staff. Increased respiratory distress and agonal breathing noted. SBP 200s Transient bradycardia Decreased mentation. No improvement despite ambubagging and and Narcan administration. Subsequent intubation done at bedside by ER provider (Dr. Martin). Patient transferred to ICU for further management. Dr. Schrader of nephrology and patient's daughter updated of developments over the phone.
[2022-10-05] MEDS ORDERED: ACETAMINOPHEN 1,000 MG/100 ML VIAL IV PRN (06:11)
[2022-10-05] MEDS ORDERED: NALOXONE HCL 0.4 MG/1 ML VIAL/CARP IV STA (06:20)
[2022-10-05] MEDS ORDERED: PROPOFOL BOLUS FROM BAG IV PRN (06:23)
[2022-10-05] MEDS ORDERED: STAT IV Infusion **Titration per Protocol STA (06:23)
[2022-10-05] MEDS ORDERED: PROPOFOL IV EMULSION 10 MG/ML 100 ML VIAL IV ONE (06:24)
--- NOTE | 2022-10-05 06:27 | Emergency Department Note ---
ED Visit Note Endotracheal Intubation Indication respiratory failure. The patient was on 100% oxygen via NRB prior to the procedure. Suction, airway equipment, RSI drugs, respiratory equipment, and appropriate personnel were prepared prior to the initiation of the procedure. A time out was taken. Induction was performed with 30 mg of IV etomidate. After observing the clinical benefit of the medications, the airway was easily visualized utilizing a glide scope. A 7.5 size ETT tube was placed atraumatically to 24 cm using standard technique. The cuff inflated without signs of malfunction. There were bilateral breath sounds, positive colormetric change, no gastric sounds, and post procedure pulse oximetry was 99%. Post intubation sedation Versed. There were no complications. .
[2022-10-05] MEDS: propofoL 1,000 MG/100 ML VIAL IV SCH ×2 (06:40→19:58)
--- NOTE | 2022-10-05 06:58 | Critical Care Consultation ---
Date of Consultation October 05, 2022 Assessment & Plan (1) Acute and chronic respiratory failure with hypoxia: Reason Critically Ill: 76-year-old female with end-stage renal disease requiring dialysis presents to the ICU with acute hypoxic respiratory failure and was emergently intubated following a code purple. Neuro - Sedation: Propofol Cardiac - CHFprevious echo 04/16 with normal LV function EF 60%, grade 2 diastolic dysfunction, mild aortic valve sclerosis with mild aortic valve stenosis and mild regurg, mild mitral regurg, mild tricuspid regurg, pulmonary hypertension -Patient currently volume overloaded with pulmonary edema. Plan for dialysis this morning History of atrial tachycardiacontinue MTP. Continuous monitoring on telemetry Respiratory - Acute hypoxic respiratory failurepatient with history of asthma, chronic respiratory failure on 2 L intermittent at home and CPAP at bedtime, with 24 hours shortness of breath. Code purple with respiratory arrest requiring emergent intubation. Chest x-ray consistent with pulmonary edema. -Nephrology contacted and patient to undergo dialysis this morning -Continue with home dose nebs -CT chest pending -AB.4 /106/29, weaning vent as tolerated -Continuous monitoring pulse ox and end-tidal CO2 GI - N.p.o. GERDPPI RENAL/LYTES - ESRDunderwent dialysis on Wednesday as scheduled, presents to the hospital last night with volume overload and pulmonary congestion on chest x-ray -Now in respiratory failure and requiring intubation. Plan to undergo dialysis this morning - no significant electrolyte abnormalities or acidosis. Monitor routine BMPs -Careful with IV fluids as patient is volume overloaded and in respiratory failure -Nephrology consulted, will follow recommendations - Foleyoliguric, monitor strict I's and O ENDO - DM type IIdiet controlled. Currently euglycemic. ICU hyperglycemic protocol HEME - H&H stable, monitor routine CBC ID - No indication for infectious process at this time. Trend fever curve LINES/IV ACCESS - Peripheral IVs DVT PROPHYLAXIS - SCDs, subcu heparin I have personally spent 40 minutes of critical care time in the direct management of this patient. This is a life/limb threatening event. This includes time spent evaluating patient, direct bedside care, chart review, placing orders, interpretation of diagnostic studies, discussion with consultants, patient, and family members, as well as other required patient management activities. This time is exclusive of all separately billable procedures, and teaching time and separate from and in addition to any other critical care service time. Thank you for allowing us to participate in the care of this patient. Please refer to my attending physician's documentation for any further recommendations. (2) CHF (congestive heart failure): (3) Dialysis patient: (4) Multifocal atrial tachycardia: (5) Aortic stenosis: (6) GERD (gastroesophageal reflux disease): (7) Diabetes mellitus: (8) Asthma, moderate persistent: (9) End-stage renal disease on hemodialysis: Supervising Physician Co-Signing Physician Notes I have personally evaluated and examined this patient. I agree with assessment and plan of Carla PRASAD. Patient has a history of obstructive sleep apnea, reported routine compliance. Settings recently increased from 4 cm of water to 5 cm of water. Daughter also reports in terms of preoperative work-up it was felt that the patient may be moving toward requiring chronic oxygen not just bled through CPAP machine. Patient has not utilized daytime oxygen at this point. Reviewed documentation and early warning system scores. Reviewed notes demonstrating abrupt unresponsiveness while undergoing evaluation and treatment. There is no reports of anoxic arrest and vital signs appear to be reassuring. It is my hope that we will be able to liberate the patient from the ventilator after she undergoes dialysis today. Discussed with the patient's daughter at bedside. I have personally spent 30 minutes of critical care time in the direct management of this patient. This is a life/limb threatening event. This includes time spent evaluating patient, direct bedside care, chart review, placing orders, interpretation of diagnostic studies, discussion with consultants, patient, and/or family members regarding treatment decisions, as well as other required patient management activities. This time is exclusive of all separately billable procedures, and teaching time and separate from and in addition to any other critical care service time. 1400: Patient was able to be liberated from the ventilator after dialysis. Tolerated therapy well. No significant complaints at this time. Will allow to advance diet as tolerated. History of Present Illness Attending Physician: Hieu Rocha MD History of Present Illness Patient is a 76-year-old female with past medical history end-stage renal disease (hemodialysis M, W, F,), asthma, CHF, aortic stenosis, HTN, DM type II, GERD, tachybradycardia syndrome who presented to the emergency department last evening with complaints of shortness of breath where she could not lay flat, and was having to use her home oxygen throughout the day. Patient thought that she may have been fluid overloaded as she has had this problem in the past. She has been 2 days without hemodialysis and will schedule to undergo dialysis today. Nain ayala was called this morning for which I responded. Patient was found by nursing staff to be unresponsive, bradycardic, and hypoxic and agonal breathing. Narcan was administered as the patient had received tramadol earlier, but did not improve patient's symptoms. She ultimately required intubation. Chest x- ray revealed worsening pulmonary edema. She has been transferred to the ICU for further management at this time. Allergies Allergy/AdvReac Type Severity Reaction Status Date / Time pollen extracts Allergy Mild sneezing, Verified 10/04/22 21:00 watery eyes No Known Drug Allergies Allergy Unknown Verified 10/04/22 21:00 Home Medications Medication Instructions Recorded Confirmed Type atorvastatin 40 mg tablet 40 mg PO HS 11/10/18 10/04/22 History famotidine 20 mg tablet 20 mg PO AMHS 05/28/21 10/04/22 History lidocaine-prilocaine 2.5 %-2.5 % See Rx Instructions topical 05/28/21 10/04/22 History topical cream .COMPLEX nitroglycerin 0.4 mg sublingual 0.4 mg sublingual Q5M PRN Chest 05/28/21 10/04/22 History tablet (Nitrostat) Pain pantoprazole 40 mg tablet,delayed 40 mg PO DAILYBB 05/28/21 10/04/22 History release polyethylene glycol 3350 17 gram 17 g PO BID PRN Constipation 05/28/21 10/04/22 History oral powder packet (Miralax) triamcinolone acetonide 0.025 % 1 applic topical BID PRN Rash 05/28/21 10/04/22 History lotion fluticasone fur. 100 mcg-umeclid 1 inh inhalation QAM 10/14/21 10/04/22 History 62.5 mcg-vilant 25 mcg inhalat.powder (Trelegy Ellipta) albuterol sulfate 90 mcg/actuation 2 puff inhalation Q6 PRN Wheezing 01/26/22 10/04/22 History aerosol inhaler (Ventolin HFA) fluticasone propionate 50 2 spray intranasal QAM PRN Allergy 01/26/22 10/04/22 History mcg/actuation nasal Symptoms spray,suspension isosorbide mononitrate 30 mg 30 mg PO QAM 01/26/22 10/04/22 History tablet,extended release 24 hr ondansetron HCl 4 mg tablet 4 mg PO Q8 PRN Nausea 01/26/22 10/04/22 History sevelamer carbonate 800 mg tablet 1,600 mg PO TIDM 01/26/22 10/04/22 History (Renvela) vit B complx, C-iron 8 mg-folic 1 tab PO QAM 01/26/22 10/04/22 History acid 800 mcg-D3 1,000 unit-zinc tablet (ProRenal) amlodipine 2.5 mg tablet 2.5 mg PO QAM 06/15/22 10/04/22 History montelukast 5 mg chewable tablet 10 mg PO DAILY PRN allergies 09/08/22 10/04/22 History (Singulair) acetaminophen 500 mg tablet 1,000 mg PO Q8 30 days #180 tabs 09/11/22 10/04/22 Rx (Tylenol Extra Strength) metoprolol succinate 25 mg 75 mg PO BID 30 days #180 tabs 09/11/22 10/04/22 Rx tablet,extended release 24 hr aspirin 81 mg tablet,delayed 81 mg PO DAILY 10/04/22 10/04/22 History release tramadol 50 mg tablet 50 mg PO Q4 PRN Pain 10/04/22 10/04/22 History Patient History Medical History Anemia of chronic disease Aortic stenosis Mild aortic stenosis (ASHLI 1.3-1.4cm2, MG 15.3mmhg) per 03/2022 echo Asthma, moderate persistent AV fistula LUE Bilateral primary osteoarthritis of knee Chronic anemia Hx iron infusions Chronic anemia Diabetes mellitus diet controlled End-stage renal disease on hemodialysis MWF ([facility]) GERD (gastroesophageal reflux disease) Gout History of COVID-19 Most recent 10/2021 ([facility])- symptoms resolved Hyperlipidemia Hypertension Osteoarthritis of knees, bilateral RSV (respiratory syncytial virus pneumonia) Sleep apnea CPAP + 2L HS Surgical History H/O partial thyroidectomy H/O: hysterectomy SANDRA BSO History of appendectomy History of cardiac cath 2017 ([facility])- no stents History of cataract surgery History of cholecystectomy History of colonoscopy History of esophagogastroduodenoscopy (EGD) 10/2021 History of lumbar surgery History of oral surgery salivary gland surgery History of tooth extraction all teeth removed S/P arteriovenous (AV) fistula creation Status post biopsy of kidney kidney disease Family History Daughter Cancer Breast Daughter Cancer Breast Daughter Hypertension Daughter Hypertension Father Diabetes Hypertension Mother Hypertension Brother Diabetes Brother Diabetes Sister Diabetes Sister Diabetes Sister Hypertension Sister Hypertension Other No family history of adverse response to anesthesia Social History Smoking Status: Never smoker Second Hand Exposure: No; Do You Dip or Chew Tobacco: No; Hx Alcohol Use: No Hx Substance Use: No Preferred Language: Indonesian Communication Ability: Impaired Communication Ability Comment: daughter states her mother can read/write/understand trinidadian [employer] Required: No Beliefs That Will Affect Care: None marital status: / Current Living Situation: Family Current Living Situation Comment: Lives with daughter Other Information That Helps Us Care for You: No Feels Safe at Home: Yes Safety Concerns: Feels Safe At This Time Assistive Devices: Cane, Oxygen - at Night and Walker Review of Systems Review of Systems: All systems reviewed & are unremarkable except as noted in HPI & below Physical Exam Constitutional: + mechanically ventilated and + overweight Eyes: PERRL, conjunctivae normal, anicteric sclerae ENMT: external ear and nose normal, oropharynx normal Neck: trachea midline, no thyromegaly Respiratory: Mechanically ventilated. Coarse crackles auscultated bilaterally, bases diminished. Symmetrical chest wall movement. Prior to intubation patient was breathing agonal he and tachypneic. Cardiovascular: Rate/Rhythm: regular rate and regular rhythm Heart Sounds: normal S1 and normal S2; no murmur Vessels: no JVD Extremities: normal capillary refill Gastrointestinal (Abdomen): normal bowel sounds, soft, nontender, no hepatosplenomegaly Musculoskeletal: no cyanosis or clubbing, extremities motor strength 5/5 Skin: no rashes, warm and dry Neurologic: Unable to assess due to sedation Psychiatric: Unable to assess due to sedation Results & Data Results & Data Vital Signs (Past 12 Hours) Vital Signs Temp Pulse Pulse Resp BP BP Pulse Ox 10/05/22 05:19 84 183/80 H 10/05/22 03:18 162/73 H 10/05/22 03:05 76 186/73 H 10/05/22 02:32 36.7 C 77 18 168/75 H 98 10/04/22 23:58 10/05/22 00:51 71 10/05/22 00:41 71 177/82 H 10/04/22 23:59 10/04/22 23:59 36.4 C L 65 20 181/76 H 96 10/04/22 23:30 69 19 99 10/04/22 23:00 69 18 157/68 H 100 10/04/22 23:07 73 10/04/22 22:54 72 20 164/71 H 100 10/04/22 22:30 72 20 100 10/04/22 22:00 71 23 96 10/04/22 21:00 72 24 97 10/04/22 20:00 65 17 98 10/04/22 19:30 67 26 H 98 10/04/22 19:38 77 99 10/04/22 19:13 68 10/04/22 19:18 92 10/04/22 19:05 36.8 C 69 26 H 151/90 H 92 10/04/22 19:14 Pulse Ox O2 Del Method O2 Del Method O2 Flow Rate O2 Flow Rate 10/05/22 05:19 10/05/22 03:18 10/05/22 03:05 10/05/22 02:32 Room Air 10/04/22 23:58 97 Nasal Cannula 2 10/05/22 00:51 10/05/22 00:41 10/04/22 23:59 Nasal Cannula 2 10/04/22 23:59 Nasal Cannula 2 10/04/22 23:30 Nasal Cannula 2 10/04/22 23:00 Nasal Cannula 2 10/04/22 23:07 10/04/22 22:54 Nebulizer 10/04/22 22:30 Nasal Cannula 2 10/04/22 22:00 Nasal Cannula 2 10/04/22 21:00 Nasal Cannula 2 10/04/22 20:00 Nasal Cannula 2 10/04/22 19:30 Nasal Cannula 2 10/04/22 19:38 Nasal Cannula 2 10/04/22 19:13 10/04/22 19:18 Room Air 10/04/22 19:05 Room Air 10/04/22 19:14 Room Air Coding Level of Care Code 20636 CRITICAL CARE 1ST 30-74M Diagnoses Acute and chronic respiratory failure with hypoxia J96.21 CHF (congestive heart failure) I50.9 Heart failure chronicity: acute Heart failure type: unspecified Dialysis patient Z99.2 Multifocal atrial tachycardia I47.1 Aortic stenosis I35.0 GERD (gastroesophageal reflux disease) K21.9 Diabetes mellitus E11.9 Asthma, moderate persistent J45.40 End-stage renal disease on hemodialysis N18.6; Z99.2 (2) CHF (congestive heart failure) Heart failure chronicity: acute Heart failure type: unspecified Qualified Code(s): I50.9 - Heart failure, unspecified
[2022-10-05 06:59] LABS: iSTAT Allen Test Pass; iSTAT Art Bld Gas pCO2 Correct 41 mmHg (35-46); iSTAT Art Bld Gas pH Corrected 7.453 (7.35-7.45); iSTAT Arterial Blood Gas HCO3 29 meg/L (19-24); iSTAT Arterial Blood Gas pCO2 42 mmHg (35-46); iSTAT Arterial Blood Gas pH 7.44 (7.35-7.45); iSTAT Arterial Blood Gas pO2 106 mmHg (80-95); iSTAT Arterial Blood Gas pO2 C 102; iSTAT Carbon Dioxide 30 mmol/L (24-31); iSTAT FiO2 50 %; iSTAT Hematocrit 26 % (37-47); iSTAT Hemoglobin 8.8 g/dl (12.0-16.0); iSTAT Site R Radial; iSTAT Sodium 135 mmol/L (135-144)
[2022-10-05] MEDS ORDERED: GLUCOSE 40% GEL 15 GM TUBE PO PRN (07:22)
[2022-10-05] MEDS ORDERED: GLUCOSE 10 TAB/TUBE PO PRN (07:22)
[2022-10-05] MEDS ORDERED: GLUCAGON FOR INJ 1 MG VIAL SQ PRN (07:22)
[2022-10-05] MEDS ORDERED: DEXTROSE 50% 50 ML SYRINGE IV PRN (07:22)
[2022-10-05] MEDS ORDERED: CARBOHYDRATES FOR HYPOGLYCEMIA PO PRN (07:22)
--- NOTE | 2022-10-05 07:22 | XRay Report ---
XR chest 1V portable HISTORY: S/P Intubation COMPARISON: Chest 10/04/2022. FINDINGS: Initial image demonstrates the endotracheal tube coursing into the right mainstem bronchus. Subsequent images demonstrated the endotracheal tube in pulled back and terminating 2.3 cm from the lashae. Nasogastric tube terminates within the stomach with the fenestrated line located at the hiatu s hernia. There is a patchy right basilar airspace opacity. There is moderate pulmonary edema and tra ce bilateral pleural effusions. The heart is enlarged. No acute fractures. There is a large hiatus he rnia again noted. IMPRESSION: 1. The endotracheal tube terminates 2.3 cm from the lashae. 2. Nasogastric tube terminus at the stomach with the fenestrated line located within the hiatus herni a. 3. Moderate pulmonary edema and trace bilateral pleural effusions again noted. 4. There is a patchy right basilar airspace opacity. ACT 112: Negative or not required by law. Electronically signed by: Guilherme Rome M.D. 10/05/2022 7:19 AM
[2022-10-05] MEDS ORDERED: ICU Protocol for HYPERglycemia SCH (07:30)
--- NOTE | 2022-10-05 07:37 | CT Scan Report ---
CT chest diagnostic wo con CT DOSE: 681.58 mGy.cm HISTORY: Hypoxia, resp distress TECHNIQUE: Multiaxial CT images of the chest were performed without contrast. A dose lowering techni que was utilized adhering to the principles of ALARA. COMPARISON: Chest CTA 01/26/2022. FINDINGS: A multinodular right thyroid goiter again noted. The endotracheal tube terminates approxima tely 2 cm from the lashae. The nasogastric tube terminates within the stomach just beyond the diaphra gmatic hiatus this could be advanced by 5 cm as the fenestrated line is located at the distal esophag us. There is a moderate hiatus hernia, unchanged. Limited views of the upper abdomen demonstrate a no rmal liver, spleen, adrenal glands. Partially visualized left renal hyper and hypodense lesion. These favor cysts. The heart remains enlarged. There are small bilateral pleural effusions, right greater than left. Mediastinal lymphadenopathy persists. Normal caliber thoracic aorta. Moderate to severe co ronary artery calcifications again noted. No pericardial effusion. No acute fractures identified. No pneumothorax. Partial opacities of the right lower lobe bronchi. Interlobular septal thickening consi stent with pulmonary edema. There are additional patchy groundglass airspace opacities seen throughou t the lungs. Consolidation within the bilateral lower lobes and right upper lobe posteriorly. IMPRESSION: 1. Endotracheal tube terminates 2 cm from the lashae. Nasogastric tube terminates in the proximal sto mach. This could be advanced by approximately 5 cm as the fenestrated line is located within the dist al esophagus. 2. Cardiomegaly with pulmonary edema and small bilateral pleural effusions. 3. Multifocal patchy groundglass airspace opacities, right greater than left. This could represent al veolar pulmonary edema or a superimposed pneumonia. 4. Consolidation within the bilateral lower lobes and right upper lobe posteriorly may represent a co mbination of atelectasis and pneumonia. 5. Mediastinal lymphadenopathy, unchanged. ACT 112: Negative or not required by law. Electronically signed by: Guilherme Rome M.D. 10/05/2022 7:34 AM
--- NOTE | 2022-10-05 07:40 | CT Scan Report ---
CT head/brain wo con CLINICAL HISTORY: AMS Technique: Contiguous axial CT images of the head were acquired from the base of the skull to the ben tolu without intravenous contrast administration. Images were viewed in brain, subdural and [facility]. Automated dose lowering techniques and/or adjustment according to patient size were utilized for this exam. Comparison: None available at the time of this dictation. Findings: The ventricles, basal cisterns, and cerebral sulci are normal. There is no acute intracranial hemorrh age or evidence of acute territorial infarction. Neither mass effect, shift of the midline structures , nor abnormal extra-axial fluid collections are shown. Imaged portions of the paranasal sinuses and mastoid air cells are clear. The orbits appear normal. There are no acute fractures of the calvaria or scalp swelling. Impression: No acute intracranial hemorrhage, no evidence of acute territorial infarction or other acute intracra nial disease process. ACT 112: Negative or not required by law. Electronically signed by: Maxx Jacobson M.D. 10/05/2022 7:38 AM
[2022-10-05] MEDS: HEPARIN SOD 5,000 UNIT/0.5 ML VIAL SQ SCH ×3 (08:03→22:20)
[2022-10-05] MEDS: ISOSORBIDE MONO EXTENDED REL 30 MG TABCR PO SCH (08:04)
[2022-10-05] MEDS: PANTOprazole 40 MG TAB PO SCH (08:04)
[2022-10-05] MEDS ORDERED: SODIUM CHLORIDE 0.9% 250 ML IV PRN ×2 (08:55→09:20)
[2022-10-05] MEDS ORDERED: SODIUM CHLORIDE 0.9% 1000ML 1,000 ML IV PRN (08:56)
[2022-10-05] MEDS ORDERED: EPOETIN ALFA 10,000 UNITS/ML VIAL IV ONE (08:56)
[2022-10-05] MEDS ORDERED: METOPROLOL SUCC 25MG EXT REL TAB PO SCH (09:00)
[2022-10-05] MEDS ORDERED: FAMOTIDINE 20 MG TAB PO SCH (09:00)
[2022-10-05] MEDS ORDERED: ISOSORBIDE MONO EXTENDED REL 30 MG TABCR PO SCH (09:00)
[2022-10-05] MEDS ORDERED: amLODIPine BESYLATE 5 MG TAB PO SCH (09:00)
--- NOTE | 2022-10-05 09:49 | Nephrology Consultation ---
Date of Consultation October 05, 2022 Assessment & Plan (1) End-stage renal disease on hemodialysis: * HD initated at 7:35 am. Will attempt 3 L UF * HD orders provided to training program manager and entered into EMR * Will order CXR and reassess need for HD in am (2) Anemia: * No active bleeding * Has received FAZAL as outpatient * Elevated ferritin precluded IV iron at [facility] * Will provide 1 unit PRBC with HD today * Monitor H&H * Will repeat iron studies (3) Acute and chronic respiratory failure with hypoxia: * Attempt 3 L UF w/ HD today * Head CT results reviewed - no acute intracranial hemorrhage, no evidence of acute territorial infarction or other acute intracranial disease process reported * POC discussed w/ ICU team this morning. They plan to wean sedation and attempt weaning from mechanical ventilation following HD today (4) Sleep apnea: * On nocturnal CPAP therapy History of Present Illness Reason for Consultation: ESKD on HD Attending Physician: Hieu Rocha MD History of Present Illness Ms. Ward is a 76 year old female who is seen at the request of the hospitalist service to provide HD. Ms. Ward is currently sedated on mechanical ventilation in the ICU. Information for the HPI is obtained from discussion with the admitting service, ICU team, Ms. Ward's daughter (Jenny) and discussion w/ [facility] chief general pediatric clinic (Esteban Peterson RN). 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 She has been on HD since 03/11 and dialyzes at [facility] (MWF 3.25 hr, F-180NR, Qb 350/Qd 600, 2K 2Ca, Na137, HCO3 36, EDW 67.5kg, heparin 1500 unit loading dose, L BC AVF). Her medical history is significant for complex cyst involving R kidney, thyroid cyst w/ tracheal deviation, AODM, HTN, LAUREN requiring nocturnal CPAP, hypercholesterolemia, gout, osteoporosis, anemia, pulmonary HTN. Ms. Ward underwent R TKA 09/08/22. She remained hospitalized at [facility] through 09/11/22. Post-op she was anemic but received IV iron and Epogen with dialysis treatments. Hgb was 7.8 at the time of transfer to [facility]. Following discharge from [facility] Ms. Ward dialyzed at [facility] 09/28, 09/30, and 10/02/22. [facility] clinic manger noted that she required oxygen with each treatment but was not in distress. The chief general pediatric clinic reports that Ms. Ward tolerated her treatments without complication and attained her "dry weight" each treatment. Hgb 09/28 was 7.7 with iron saturation 20%, ferritin 1700. Iron was held due to elevated ferritin but Mircera dose was adjusted and administered according to protocol. Jenny Ward reports that Mr. Peterson discussed her mother's anemia with them. He offered to set up a transfusion as outpatient at [facility]. Ms. Ward declined noting that she felt well at the time. Jenny Ward reports that on 09/30/22 her mother became dyspneic at rest. This progressively worsened to the point that they sought medical evaluation 10/04/22. [facility] evaluation revealed that the patient was hemodynamically stable w/ BP 151/90, P 69, RA SaO2 92%. O2 at 2L/min NC was applied and SaO2 improved to 99%. ECG was NSR w/ incomplete RBBB, no acute ischemic change. Troponin was 20.9 (baseline 02/12 30.2). CXR revealed multifocal airspace opacities which may represent atelectasis, pneumonia and/or aspiration. Dr. Bass requested telephone consultation with Nephrology at 8 pm. Vital signs, ECG, CXR and lab results were reviewed. [facility] hospital dialysis services are available 7am-7pm. There were no web operations specialist services. Dr. Bass explained that the patient had done well with treatment in the EMD and was currently oxygenating well on only 2L O2 NC. Admission to [facility] hospitalist service was advised if HD could be provided in the morning. I agreed to contact the HD staff occupational therapist and arrange 1st shift HD 10/05/22. EMD physician relayed the plan or care to the patient and her family. Ms. Ward was then admitted to the hospitalist service. She received topical NTP and IV Furosemide. IV Labetalol was provided for BP management. Overnight, patient was maintained on O2 NC. CPAP was not ordered. This morning Ms. Ward developed chest heaviness. An ECG was obtained. She was then noted to have labored breathing and became poorly responsive. Nain ayala was called at 5:40 am. Ms. Ward required emergency bag ventilation followed by endotracheal intubation by EMD staff. Ms. Ward was transferred to the ICU where she was placed on mechanical ventilation and started on a Propofol gtt. At the time of my evaluation, Ms. Ward was sedated, BP 122/63, SaO2 100% on FiO2 50%, CV-RRR, lungs-coarse BS, AVF + bruit, Neuro-spontaneous movement of legs noted. Verbal orders were provided for dialysis and later entered into the EMR. HD was initiated at 07:35 am. Family was updated regarding dialysis treatment, ultrafiltration goal and plan for blood transfusion. Plan of care reviewed w/ Dr. Cadena. ICU team hopes to wean sedation following HD today and attempt extubation. Allergies Allergy/AdvReac Type Severity Reaction Status Date / Time pollen extracts Allergy Mild sneezing, Verified 10/04/22 21:00 watery eyes No Known Drug Allergies Allergy Unknown Verified 10/04/22 21:00 Home Medications Medication Instructions Recorded Confirmed Type atorvastatin 40 mg tablet 40 mg PO HS 11/10/18 10/04/22 History famotidine 20 mg tablet 20 mg PO AMHS 05/28/21 10/04/22 History lidocaine-prilocaine 2.5 %-2.5 % See Rx Instructions topical 05/28/21 10/04/22 History topical cream .COMPLEX nitroglycerin 0.4 mg sublingual 0.4 mg sublingual Q5M PRN Chest 05/28/21 10/04/22 History tablet (Nitrostat) Pain pantoprazole 40 mg tablet,delayed 40 mg PO DAILYBB 05/28/21 10/04/22 History release polyethylene glycol 3350 17 gram 17 g PO BID PRN Constipation 05/28/21 10/04/22 History oral powder packet (Miralax) triamcinolone acetonide 0.025 % 1 applic topical BID PRN Rash 05/28/21 10/04/22 History lotion fluticasone fur. 100 mcg-umeclid 1 inh inhalation QAM 10/14/21 10/04/22 History 62.5 mcg-vilant 25 mcg inhalat.powder (Trelegy Ellipta) albuterol sulfate 90 mcg/actuation 2 puff inhalation Q6 PRN Wheezing 01/26/22 10/04/22 History aerosol inhaler (Ventolin HFA) fluticasone propionate 50 2 spray intranasal QAM PRN Allergy 01/26/22 10/04/22 History mcg/actuation nasal Symptoms spray,suspension isosorbide mononitrate 30 mg 30 mg PO QAM 01/26/22 10/04/22 History tablet,extended release 24 hr ondansetron HCl 4 mg tablet 4 mg PO Q8 PRN Nausea 01/26/22 10/04/22 History sevelamer carbonate 800 mg tablet 1,600 mg PO TIDM 01/26/22 10/04/22 History (Renvela) vit B complx, C-iron 8 mg-folic 1 tab PO QAM 01/26/22 10/04/22 History acid 800 mcg-D3 1,000 unit-zinc tablet (ProRenal) amlodipine 2.5 mg tablet 2.5 mg PO QAM 06/15/22 10/04/22 History montelukast 5 mg chewable tablet 10 mg PO DAILY PRN allergies 09/08/22 10/04/22 History (Singulair) acetaminophen 500 mg tablet 1,000 mg PO Q8 30 days #180 tabs 09/11/22 10/04/22 Rx (Tylenol Extra Strength) metoprolol succinate 25 mg 75 mg PO BID 30 days #180 tabs 09/11/22 10/04/22 Rx tablet,extended release 24 hr aspirin 81 mg tablet,delayed 81 mg PO DAILY 10/04/22 10/04/22 History release tramadol 50 mg tablet 50 mg PO Q4 PRN Pain 10/04/22 10/04/22 History Patient History Medical History Anemia of chronic disease Aortic stenosis Mild aortic stenosis (ASHLI 1.3-1.4cm2, MG 15.3mmhg) per 03/2022 echo Asthma, moderate persistent AV fistula LUE Bilateral primary osteoarthritis of knee Chronic anemia Hx iron infusions Chronic anemia Diabetes mellitus diet controlled End-stage renal disease on hemodialysis MWF ([facility]) GERD (gastroesophageal reflux disease) Gout History of COVID-19 Most recent 10/2021 ([facility])- symptoms resolved Hyperlipidemia Hypertension Osteoarthritis of knees, bilateral RSV (respiratory syncytial virus pneumonia) Sleep apnea CPAP + 2L HS Surgical History H/O partial thyroidectomy H/O: hysterectomy SANDRA BSO History of appendectomy History of cardiac cath 2018 ([facility])- no stents History of cataract surgery History of cholecystectomy History of colonoscopy History of esophagogastroduodenoscopy (EGD) 10/2021 History of lumbar surgery History of oral surgery salivary gland surgery History of tooth extraction all teeth removed S/P arteriovenous (AV) fistula creation Status post biopsy of kidney kidney disease Family History Daughter Cancer Breast Daughter Cancer Breast Daughter Hypertension Daughter Hypertension Father Diabetes Hypertension Mother Hypertension Brother Diabetes Brother Diabetes Sister Diabetes Sister Diabetes Sister Hypertension Sister Hypertension Other No family history of adverse response to anesthesia Social History Smoking Status: Never smoker Second Hand Exposure: No; Do You Dip or Chew Tobacco: No; Hx Alcohol Use: No Hx Substance Use: No Preferred Language: Albanian Communication Ability: Effective Communication Ability Comment: daughter states her mother can read/write/understand armenian Twisting Frame Changer Required: No Beliefs That Will Affect Care: None marital status: / Current Living Situation: Family Current Living Situation Comment: Lives with daughter Other Information That Helps Us Care for You: No Feels Safe at Home: Yes Safety Concerns: Feels Safe At This Time Assistive Devices: Cane, CPAP, Oxygen - at Night and Walker Review of Systems Review of Systems: Unobtainable due to endotracheal tube Physical Exam Constitutional: mechanically ventilated Eyes: PERRL, conjunctivae normal, anicteric sclerae ENMT: external ear and nose normal, oropharynx normal Neck: trachea midline, no thyromegaly Respiratory: coarse BS bilaterally Cardiovascular: Rate/Rhythm: regular rate and regular rhythm Extremities: + edema (trace pretibial edema) AVF + bruit Gastrointestinal (Abdomen): normal bowel sounds, soft, nontender, no hepatosplenomegaly Skin: no rashes Results & Data Vital Signs (Past 12 Hours) Vital Signs Temp Pulse Pulse Resp BP BP Pulse Ox 10/05/22 09:00 68 110/58 L 10/05/22 08:30 67 112/65 10/05/22 08:00 66 120/63 10/05/22 07:48 63 122/64 10/05/22 07:35 37.3 C 64 10/05/22 07:24 18 10/05/22 06:36 61 23 95 10/05/22 05:19 84 183/80 H 10/05/22 03:18 162/73 H 10/05/22 03:05 76 186/73 H 10/05/22 02:32 36.7 C 77 18 168/75 H 98 10/04/22 23:58 10/05/22 00:51 71 10/05/22 00:41 71 177/82 H 10/04/22 23:59 10/04/22 23:59 36.4 C L 65 20 181/76 H 96 10/04/22 23:30 69 19 99 10/04/22 23:00 69 18 157/68 H 100 10/04/22 23:07 73 10/04/22 22:54 72 20 164/71 H 100 10/04/22 22:30 72 20 100 10/04/22 22:00 71 23 96 Pulse Ox O2 Del Method O2 Del Method O2 Flow Rate O2 Flow Rate FiO2 10/05/22 09:00 10/05/22 08:30 10/05/22 08:00 10/05/22 07:48 10/05/22 07:35 10/05/22 07:24 40 10/05/22 06:36 50 10/05/22 05:19 10/05/22 03:18 10/05/22 03:05 10/05/22 02:32 Nasal Cannula 10/04/22 23:58 97 Nasal Cannula 2 10/05/22 00:51 10/05/22 00:41 10/04/22 23:59 Nasal Cannula 2 10/04/22 23:59 Nasal Cannula 2 10/04/22 23:30 Nasal Cannula 2 10/04/22 23:00 Nasal Cannula 2 10/04/22 23:07 10/04/22 22:54 Nebulizer 10/04/22 22:30 Nasal Cannula 2 10/04/22 22:00 Nasal Cannula 2 Laboratory Results Laboratory Results WBC 7.80 K/ul (4.8-10.8) 10/05/22 03:50 RBC 2.96 M/uL (4.20-5.40) L 10/05/22 03:50 Hgb 7.9 g/dl (12.0-16.0) L 10/05/22 03:50 POC Hgb 8.8 g/dl (12.0-16.0) L 10/05/22 06:46 Hct 25.8 % (37.0-47.0) L 10/05/22 03:50 POC Hct 26 % (37-47) L 10/05/22 06:46 MCV 87.2 fL (80.0-100.0) 10/05/22 03:50 MCH 26.7 pg (25.0-34.0) 10/05/22 03:50 MCHC 30.6 g/dL (32.0-36.0) L 10/05/22 03:50 RDW Std Deviation 50.9 fL (36.4-46.3) H 10/05/22 03:50 RDW Coeff of Luis 16.4 % (11.5-14.5) H 10/05/22 03:50 Plt Count 301 K/uL (130-400) 10/05/22 03:50 MPV 9.0 fL (9.4-12.4) L 10/05/22 03:50 Immature Gran % (Auto) 0.3 % 10/05/22 03:50 Neut % (Auto) 75.9 % 10/05/22 03:50 Lymph % (Auto) 11.9 % 10/05/22 03:50 [place] % (Auto) 7.6 % 10/05/22 03:50 Eos % (Auto) 3.8 % 10/05/22 03:50 Baso % (Auto) 0.5 % 10/05/22 03:50 Neut # (Auto) 5.92 K/uL (1.40-6.50) 10/05/22 03:50 Lymph # (Auto) 0.93 K/uL (1.2-3.4) L 10/05/22 03:50 Prairie # (Auto) 0.59 K/uL (0.11-0.59) 10/05/22 03:50 Eos # (Auto) 0.30 K/uL (0-0.50) 10/05/22 03:50 Baso # (Auto) 0.04 K/uL (0-0.2) 10/05/22 03:50 Immature Gran # (Auto) 0.02 K/uL (0.01-0.20) 10/05/22 03:50 Absolute Nucleated RBC 0.02 K/uL (0-0.12) 10/04/22 19:07 Nucleated RBC % (auto) 0.3 % 10/04/22 19:07 Polychromasia 1+ 10/05/22 03:50 PT 11.0 Seconds (9.0-12.0) 10/04/22 19:07 INR 1.0 (0.9-1.1) 10/04/22 19:07 APTT 30.5 Seconds (21.0-31.0) 10/05/22 03:50 PTT Ratio 1.1 10/05/22 03:50 Sample Site R Radial 10/05/22 06:46 POC pH 7.44 (7.35-7.45) 10/05/22 06:46 POC pCO2 42 mmHg (35-46) 10/05/22 06:46 POC pO2 106 mmHg (80-95) H 10/05/22 06:46 POC HCO3 29 lionel/L (19-24) H 10/05/22 06:46 POC Total CO2 30 mmol/L (24-31) 10/05/22 06:46 POC Base Excess 5.0 lionel/L (-9-1.8) H 10/05/22 06:46 ABG pH 7.41 (7.35-7.45) 10/04/22 23:03 ABG pH (Temp Correct) 7.453 (7.35-7.45) H 10/05/22 06:46 ABG pCO2 49 mmHg (35-46) H 10/04/22 23:03 ABG pCO2 (Temp Corrct 41 mmHg (35-46) 10/05/22 06:46 ABG pO2 66 mmHg (80-95) L 10/04/22 23:03 POC ABG pO2 at Pt Temp 102 10/05/22 06:46 ABG HCO3 31 mmol/L (19-24) H 10/04/22 23:03 POC ABG O2 Sat 98.0 % (90-95) H 10/05/22 06:46 ABG O2 Saturation 94.5 % (90-95) 10/04/22 23:03 ABG Base Excess 5.3 mEq/L (-9-1.8) H 10/04/22 23:03 Iglesia Test Pass 10/05/22 06:46 Oxygen Given 9.5 10/04/22 23:03 O2 Delivery Device Ventilator 10/05/22 06:46 POC O2 Rate 22 10/05/22 06:46 POC FiO2 50 % 10/05/22 06:46 Tidal Volume 380 10/05/22 06:46 PEEP 10 10/05/22 06:46 POC Sodium 135 mmol/L (135-144) 10/05/22 06:46 Sodium 138 mmol/L (136-145) 10/05/22 03:50 POC Potassium 5.0 mmol/L (3.3-5.0) 10/05/22 06:46 Potassium 4.9 mmol/L (3.5-5.1) 10/05/22 03:50 Chloride 96 mmol/L (98-107) L 10/05/22 03:50 Carbon Dioxide 32 mmol/L (21-32) 10/05/22 03:50 Anion Gap 10 (3-11) 10/05/22 03:50 BUN 45 mg/dl (6-23) H 10/05/22 03:50 Creatinine 6.49 mg/dl (0.6-1.2) H* 10/05/22 03:50 Est Cr Clr Drug Dosing 6.4 ml/min 10/05/22 03:50 Est GFR ( Amer) 6.6 ml/min 10/05/22 03:50 Est GFR (Non-Af Amer) 5.7 ml/min 10/05/22 03:50 BUN/Creatinine Ratio 6.9 (10-20) L 10/05/22 03:50 Glucose 156 mg/dl (70-99(Fasting)) H 10/05/22 03:50 POC Glucose 90 mg/dl (70-99) 10/05/22 11:25 Lactate 3.4 mmol/L (0.4-2.0) H* 10/05/22 06:51 Calcium 9.5 mg/dl (8.6-10.3) 10/05/22 03:50 Phosphorus 3.5 mg/dl (2.5-4.9) 10/04/22 19:07 Magnesium 2.3 mg/dl (1.7-2.4) 10/04/22 19:07 Total Bilirubin 0.4 mg/dl (0.2-1.0) 10/04/22 19:07 AST 22 U/L (13-39) 10/04/22 19:07 ALT 12 U/L (7-52) 10/04/22 19:07 Alkaline Phosphatase 146 U/L (34-104) H 10/04/22 19:07 Troponin I High Sens 23.0 pg/ml (0-14) H 10/05/22 06:51 B-Natriuretic Peptide 2528 pg/ml (0-100) H 10/05/22 06:51 Total Protein 7.2 gm/dl (6.0-8.3) 10/04/22 19:07 Albumin 3.7 gm/dl (3.4-5.0) 10/04/22 19:07 Globulin 3.5 gm/dl (2.5-4.0) 10/04/22 19:07 Albumin/Globulin Ratio 1.1 (0.9-2) 10/04/22 19:07 SARS-CoV-2, RNA, NAAT NEGATIVE (NEGATIVE) 10/04/22 20:32 Blood Type O Positive 10/04/22 23:03 Antibody Screen NEGATIVE 10/04/22 23:03 Crossmatch See Detail 10/04/22 23:03 Impressions Chest X-Ray 10/05/22 06:01 XR chest 1V portable HISTORY: S/P Intubation COMPARISON: Chest 10/04/2022. FINDINGS: Initial image demonstrates the endotracheal tube coursing into the right mainstem bronchus. Subsequent images demonstrated the endotracheal tube in pulled back and terminating 2.3 cm from the lashae. Nasogastric tube terminates within the stomach with the fenestrated line located at the hiatus hernia. There is a patchy right basilar airspace opacity. There is moderate pulmonary edema and trace bilateral pleural effusions. The heart is enlarged. No acute fractures. There is a large hiatus hernia again noted. IMPRESSION: 1. The endotracheal tube terminates 2.3 cm from the lashae. 2. Nasogastric tube terminus at the stomach with the fenestrated line located within the hiatus hernia. 3. Moderate pulmonary edema and trace bilateral pleural effusions again noted. 4. There is a patchy right basilar airspace opacity. ACT 112: Negative or not required by law. Electronically signed by: Guilherme Rome M.D. 10/05/2022 7:[address] 10/05/22 06:26 CT chest diagnostic wo con CT DOSE: 681.58 mGy.cm HISTORY: Hypoxia, resp distress TECHNIQUE: Multiaxial CT images of the chest were performed without contrast. A dose lowering technique was utilized adhering to the principles of ALARA. COMPARISON: Chest CTA 01/26/2022. FINDINGS: A multinodular right thyroid goiter again noted. The endotracheal tube terminates approximately 2 cm from the lashae. The nasogastric tube terminates within the stomach just beyond the diaphragmatic hiatus this could be advanced by 5 cm as the fenestrated line is located at the distal esophagus. There is a moderate hiatus hernia, unchanged. Limited views of the upper abdomen demons trate a normal liver, spleen, adrenal glands. Partially visualized left renal hyper and hypodense lesion. These favor cysts. The heart remains enlarged. There are small bilateral pleural effusions, right greater than left. Mediastinal lymphadenopathy persists. Normal caliber thoracic aorta. Moderate to severe coronary artery calcifications again noted. No pericardial effusion. No acute fractures identified. No pneumothorax. Partial opacities of the right lower lobe bronchi. Interlobular septal thickening consistent with pulmonary edema. There are additional patchy groundglass airspace opacities seen throughout the lungs. Consolidation within the bilateral lower lobes and right upper lobe posteriorly. IMPRESSION: 1. Endotracheal tube terminates 2 cm from the lashae. Nasogastric tube te rminates in the proximal stomach. This could be advanced by approximately 5 cm as the fenestrated line is located within the distal esophagus. 2. Cardiomegaly with pulmonary edema and small bilateral pleural effusions. 3. Multifocal patchy groundglass airspace opacities, right greater than left. This could represent alveolar pulmonary edema or a superimposed pneumonia. 4. Consolidation within the bilateral lower lobes and right upper lobe posteriorly may represent a combination of atelectasis and pneumonia. 5. Mediastinal lymphadenopathy, unchanged. ACT 112: Negative or not required by law. Electronically signed by: Guilherme Rome M.D. 10/05/2022 7:[address] 10/05/22 06:26 CT head/brain wo con CLINICAL HISTORY: AMS Technique: Contiguous axial CT images of the head were acquired from the base of the skull to the vertex without intravenous contrast administration. Images were viewed in brain, subdural and bone windows. Automated dose lowering techniques and/or adjustment according to patient size were utilized for this exam. Comparison: None available at the time of this dictation. Findings: The ventricles, basal cisterns, and cerebral sulci are normal. There is no acute intracranial hemorrhage or evidence of acute territorial infarction. Neither mass effect, shift of the midline structures, nor abnormal extra-axial fluid collections are shown. Imaged portions of the paranasal sinuses and mastoid air cells are clear. The orbits appear normal. There are no acute fractures of the calvaria or scalp swelling. Impression: No acute intracranial hemorrhage, no evidence of acute territorial infarction or other acute intracranial disease process. ACT 112: Negative or not required by law. Electronically signed by: Maxx Jacobson M.D. 10/05/2022 7:38 AM PG Care Time/CCT Total # of Minutes Spent Total Time Spent with Patient: Total time spent is greater than 50% in coordination of care (as documented) at patient's floor/unit and/or counseling patient: Coding Level of Care Code 98336 IN/OBS CONSULT LVL 5,80M Diagnoses End-stage renal disease on hemodialysis N18.6; Z99.2 Anemia D64.9 Anemia type: unspecified type Acute and chronic respiratory failure with hypoxia J96.21 Sleep apnea G47.30 (2) Anemia Anemia type: unspecified type Qualified Code(s): D64.9 - Anemia, unspecified
[2022-10-05] MEDS ORDERED: fentaNYL citrate PF 100 MCG/2 ML VIAL ONE (10:04)
[2022-10-05 10:12] LABS: Allen Test Pos (Pos)
[2022-10-05] MEDS: fentaNYL citrate PF 100 MCG/2 ML VIAL IV PRN ×2 (10:14→20:28)
[2022-10-05] MEDS: ASPIRIN 81 MG ECTAB PO SCH (10:26)
[2022-10-05] MEDS: SEVELAMER HCL 800 MG TABLET PO SCH ×3 (10:26→20:29)
[2022-10-05] MEDS: UMECLIDINIUM/VILANTEROL 62.5/25MCG 7 PUFFS/INHALER INH SCH (10:27)
[2022-10-05] MEDS: FLUTICASONE FUROATE 100MCG 14 PUFFS/INHALER INH SCH (10:27)
[2022-10-05] MEDS: NEPHROCAPS PO SCH (10:27)
[2022-10-05] MEDS: INSULIN ASPART PER UNIT CHARGE SC SCH ×4 (10:30→22:25)
--- NOTE | 2022-10-05 11:45 | Dialysis Progress Note ---
Date of Service October 05, 2022 Assessment & Plan (1) End-stage renal disease on hemodialysis: Plan: * 3480 cc UF obtained. One unit PRBC has been provided. AVF is functioning well. No change to current dialysis prescription at this time. Admission and Anticipated Discharge Date Admission Date: October 04, 2022 Subjective Ms. Ward was evaluated during HD this morning. She is sedated, receiving mechanical ventilation. Family is at bedside Review of Systems Review of Systems: Unobtainable due to endotracheal tube Physical Exam Constitutional: mechanically ventilated Eyes: PERRL, conjunctivae normal, anicteric sclerae ENMT: external ear and nose normal, oropharynx normal Neck: trachea midline, no thyromegaly Respiratory: coarse BS bilaterally Cardiovascular: Rate/Rhythm: regular rate and regular rhythm Extremities: + edema (trace pretibial edema) AVF + bruit Gastrointestinal (Abdomen): normal bowel sounds, soft, nontender, no hepatosplenomegaly Skin: no rashes Results & Data Vital Signs (Past 12 Hours) Vital Signs Temp Pulse Pulse Resp BP BP Pulse Ox 10/05/22 11:20 37.1 C 65 18 100 10/05/22 11:15 37.1 C 65 18 99 10/05/22 11:15 123/64 10/05/22 11:07 37.1 C 65 18 100 10/05/22 11:07 114/61 10/05/22 11:00 37.1 C 69 18 100 10/05/22 11:00 98/55 L 10/05/22 10:58 37.1 C 67 18 100 10/05/22 10:58 94/57 L 10/05/22 10:45 37.1 C 68 18 100 10/05/22 10:45 94/53 L 10/05/22 10:40 37.1 C 69 18 100 10/05/22 10:32 37.1 C 67 18 100 10/05/22 10:32 94/55 L 10/05/22 10:20 37.1 C 68 18 100 10/05/22 10:15 113/60 10/05/22 10:15 37.0 C 68 18 100 10/05/22 10:00 37.0 C 66 22 100 10/05/22 10:00 108/59 L 10/05/22 09:45 37.1 C 71 19 100 10/05/22 09:45 96/53 L 10/05/22 09:40 37.1 C 73 18 100 10/05/22 09:30 105/57 L 10/05/22 09:30 37.1 C 68 17 100 10/05/22 09:15 37.1 C 66 18 100 10/05/22 09:15 108/60 10/05/22 09:00 37.1 C 68 18 96 10/05/22 08:45 115/59 L 10/05/22 08:40 37.1 C 68 18 100 10/05/22 08:30 37.2 C 67 18 100 10/05/22 08:30 112/65 10/05/22 08:00 37.2 C 65 18 100 10/05/22 07:52 122/64 10/05/22 07:52 37.3 C 66 18 100 10/05/22 07:29 108/57 L 10/05/22 07:26 60 18 91 10/05/22 09:00 10/05/22 11:00 68 94/57 L 10/05/22 08:00 65 10/05/22 10:30 37.1 C 70 98/55 L 10/05/22 10:36 37.1 C 70 18 95/55 L 10/05/22 10:22 37.1 C 70 18 94/55 L 10/05/22 10:07 37.1 C 67 18 108/59 L 10/05/22 10:00 37.1 C 66 105/59 L 10/05/22 10:04 37.1 C 66 17 105/59 L 10/05/22 09:51 37.1 C 70 17 96/53 L 100 10/05/22 09:30 69 105/57 L 10/05/22 09:00 68 110/58 L 10/05/22 08:30 67 112/65 10/05/22 08:00 66 120/63 10/05/22 07:48 63 122/64 10/05/22 07:35 37.3 C 64 10/05/22 07:24 18 10/05/22 06:36 61 23 95 10/05/22 05:19 84 183/80 H 10/05/22 03:18 162/73 H 10/05/22 03:05 76 186/73 H 10/05/22 02:32 36.7 C 77 18 168/75 H 98 10/04/22 23:58 10/05/22 00:51 71 10/05/22 00:41 71 177/82 H 10/04/22 23:59 10/04/22 23:59 36.4 C L 65 20 181/76 H 96 Pulse Ox O2 Del Method O2 Del Method O2 Flow Rate O2 Flow Rate FiO2 10/05/22 11:20 Mechanical Vent 10/05/22 11:15 Mechanical Vent 10/05/22 11:15 10/05/22 11:07 Mechanical Vent 10/05/22 11:07 10/05/22 11:00 Mechanical Vent 10/05/22 11:00 10/05/22 10:58 Mechanical Vent 10/05/22 10:58 10/05/22 10:45 Mechanical Vent 10/05/22 10:45 10/05/22 10:40 Mechanical Vent 10/05/22 10:32 Mechanical Vent 10/05/22 10:32 10/05/22 10:20 Mechanical Vent 10/05/22 10:15 10/05/22 10:15 Mechanical Vent 10/05/22 10:00 Mechanical Vent 10/05/22 10:00 10/05/22 09:45 Mechanical Vent 10/05/22 09:45 10/05/22 09:40 Mechanical Vent 10/05/22 09:30 10/05/22 09:30 Mechanical Vent 10/05/22 09:15 Mechanical Vent 10/05/22 09:15 10/05/22 09:00 Mechanical Vent 10/05/22 08:45 10/05/22 08:40 Mechanical Vent 10/05/22 08:30 Mechanical Vent 10/05/22 08:30 10/05/22 08:00 Mechanical Vent 10/05/22 07:52 10/05/22 07:52 Mechanical Vent 10/05/22 07:29 10/05/22 07:26 Mechanical Vent 10/05/22 09:00 40 10/05/22 11:00 10/05/22 08:00 10/05/22 10:30 10/05/22 10:36 10/05/22 10:22 10/05/22 10:07 10/05/22 10:00 10/05/22 10:04 10/05/22 09:51 10/05/22 09:30 10/05/22 09:00 10/05/22 08:30 10/05/22 08:00 10/05/22 07:48 10/05/22 07:35 10/05/22 07:24 40 10/05/22 06:36 50 10/05/22 05:19 10/05/22 03:18 10/05/22 03:05 10/05/22 02:32 Nasal Cannula 10/04/22 23:58 97 Nasal Cannula 2 10/05/22 00:51 10/05/22 00:41 10/04/22 23:59 Nasal Cannula 2 10/04/22 23:59 Nasal Cannula 2 [facility] Procedure Codes (Charges) Renal/Urologic Renal/Urologic: 70240 Dialysis, One Evaluation Coding Level of Care Code None Diagnoses End-stage renal disease on hemodialysis N18.6; Z99.2 CPT Codes Renal/Urologic - Renal/Urologic: 04098 Dialysis, One Evaluation ([id number])
[2022-10-05] MEDS ORDERED: SODIUM CHLORIDE 0.9% 10ML FLUSH IV ONE (13:01)
[2022-10-05] MEDS ORDERED: NALOXONE HCL 0.4 MG/1 ML VIAL/CARP IV ONE (13:01)
[2022-10-05] MEDS ORDERED: MIDAZOLAM HCL 5 MG/ML 2ML VIAL IV ONE (13:03)
[2022-10-05] MEDS ORDERED: ETOMIDATE 2 MG/ML 20 ML VIAL IV ONE (13:03)
--- NOTE | 2022-10-05 14:09 | Electrocardiogram Report ---
Test Reason : Blood Pressure : / mmHG Vent. Rate : 070 BPM Atrial Rate : 070 BPM P-R Int : 164 ms QRS Dur : 102 ms QT Int : 420 ms P-R-T Axes : 025 -44 051 degrees QTc Int : 453 ms Sinus rhythm with Premature supraventricular complexes Left axis deviation Incomplete right bundle branch block Minimal voltage criteria for LVH, may be normal variant Abnormal ECG When compared with ECG of 10-SEP-2022 23:02, No significant change was found Confirmed by Florentin Flores ([id number]) on 10/05/2022 2:09:19 PM Referred By: REFERRED SELF Confirmed By:Florentin Flores
--- NOTE | 2022-10-05 14:15 | Electrocardiogram Report ---
Test Reason : Blood Pressure : / mmHG Vent. Rate : 101 BPM Atrial Rate : 104 BPM P-R Int : 000 ms QRS Dur : 110 ms QT Int : 340 ms P-R-T Axes : 000 -47 072 degrees QTc Int : 440 ms Sinus tachycardia with occasional Premature atrial complexes Left anterior fascicular block Abnormal ECG When compared with ECG of 05-OCT-2022 02:55, (unconfirmed) Left anterior fascicular block is now Present ST elevation now present in Lateral leads Confirmed by Florentin Flores ([id number]) on 10/05/2022 2:14:46 PM Referred By: REFERRED SELF Confirmed By:Florentin Flores
--- NOTE | 2022-10-05 14:17 | Electrocardiogram Report ---
Test Reason : Blood Pressure : / mmHG Vent. Rate : 080 BPM Atrial Rate : 080 BPM P-R Int : 170 ms QRS Dur : 112 ms QT Int : 384 ms P-R-T Axes : 062 -36 080 degrees QTc Int : 442 ms Poor data quality, interpretation may be adversely affected Normal sinus rhythm Left axis deviation Abnormal ECG When compared with ECG of 04-OCT-2022 19:10, (unconfirmed) Premature supraventricular complexes are no longer Present T wave inversion now evident in Lateral leads Confirmed by Florentin Flores ([id number]) on 10/05/2022 2:16:41 PM Referred By: REFERRED SELF Confirmed By:Florentin Flores
[2022-10-05] MEDS: METOPROLOL TARTRATE 1 MG/ML VIAL IV SCH ×2 (14:18→22:19)
--- NOTE | 2022-10-05 15:59 | Hospitalist Progress Note ---
Date of Service October 05, 2022 Assessment & Plan (1) Acute hypoxemic respiratory failure: Plan: Acute hypoxic respiratory failure Secondary to volume overload End-stage renal disease H/O diastolic dysfunction Troponin elevation likely demand ischemia secondary to volume overload, in setting of end-stage renal disease Lactic Acidosis Chronic respiratory failure--on 2 L supplemental oxygen intermittently Pulm HTN --CT Chest:Endotracheal tube terminates 2 cm from the lashae. Nasogastric tube terminates in the proximal stomach. This could be advanced by approximately 5 cm as the fenestrated line is located within the distal esophagus. Cardiomegaly with pulmonary edema and small bilateral pleural effusions. Multifocal patchy groundglass airspace opacities, right greater than left. This could represent alveolar pulmonary edema or a superimposed pneumonia. Consolidation within the bilateral lower lobes and right upper lobe posteriorly may represent a combination of atelectasis and pneumonia. Mediastinal lymphadenopathy, unchanged. --CT Head:No acute intracranial hemorrhage, no evidence of acute territorial infarction or other acute intracranial disease process. --Vent management as per critical team Volume status being managed through dialysis Appreciate critical care, nephrology input Monitor volume status Acute on Chronic Anemia S/P 1 unit PRBCs Monitor CBC Valvular heart disease Mild AR/MR/TR HTN continue home meds LAUREN on CPAP HTN HLP Continue home meds Bronchial Asthma Not in acute exacerbation DM II Continue Insulin per protocol Monitor BGs DVT Px Heparin SQ Code Status Full code Admission and Anticipated Discharge Date Admission Date: October 04, 2022 Subjective Patient is seen and examined at bedside Unable to obtain history as patient is Intubated Discussed with patient's family at bedside Also discussed with Critical Care team Plan to be extubated today as able Had HD today Review of Systems Review of Systems: All systems reviewed & are unremarkable except as noted in Subjective Physical Exam Physical Exam: Physical Exam: Vitals signs as noted above General Appearance:Moderately built and nourished, no apparent distress,+Intubated Head: normocephalic, Atraumatic Eyes: normal inspection, EOMI Neck: supple, Trachea midline Respiratory/Chest: Decreased breath sounds, basal crackles, No accessory muscle use Cardiovascular: S1, S2, No murmur Abdomen/GI:Soft, Non tender, Bowel sounds present Extremities/Musculoskeletal:normal inspection, Trace pedal edema Neurologic/Psych:Alert, awake, Sedated and Intubated during my encounter Skin: normal color, warm Results & Data Results & Data Vital Signs (Past 12 Hours) Vital Signs Temp Pulse Pulse Resp BP BP Pulse Ox 10/05/22 15:00 37.7 C H 75 21 10/05/22 14:30 37.7 C H 80 24 96 10/05/22 14:30 147/74 H 10/05/22 14:00 37.7 C H 81 23 97 10/05/22 13:30 37.5 C 81 28 H 92 10/05/22 13:00 37.5 C 79 15 83 L 10/05/22 12:30 37.3 C 69 18 99 10/05/22 12:00 37.2 C 63 18 92 10/05/22 12:00 137/66 10/05/22 11:30 37.1 C 65 18 98 10/05/22 12:00 10/05/22 12:58 77 95 10/05/22 12:33 64 100 10/05/22 11:11 18 100 10/05/22 12:21 10/05/22 11:15 37.1 C 65 114/61 10/05/22 11:20 37.1 C 65 18 100 10/05/22 11:15 37.1 C 65 18 99 10/05/22 11:15 123/64 10/05/22 11:07 37.1 C 65 18 100 10/05/22 11:07 114/61 10/05/22 11:00 37.1 C 69 18 100 10/05/22 11:00 98/55 L 10/05/22 10:58 37.1 C 67 18 100 10/05/22 10:58 94/57 L 10/05/22 10:45 37.1 C 68 18 100 10/05/22 10:45 94/53 L 10/05/22 10:40 37.1 C 69 18 100 10/05/22 10:32 37.1 C 67 18 100 10/05/22 10:32 94/55 L 10/05/22 10:20 37.1 C 68 18 100 10/05/22 10:15 113/60 10/05/22 10:15 37.0 C 68 18 100 10/05/22 10:00 37.0 C 66 22 100 10/05/22 10:00 108/59 L 10/05/22 09:45 37.1 C 71 19 100 10/05/22 09:45 96/53 L 10/05/22 09:40 37.1 C 73 18 100 10/05/22 09:30 105/57 L 10/05/22 09:30 37.1 C 68 17 100 10/05/22 09:15 37.1 C 66 18 100 10/05/22 09:15 108/60 10/05/22 09:00 37.1 C 68 18 96 10/05/22 08:45 115/59 L 10/05/22 08:40 37.1 C 68 18 100 10/05/22 08:30 37.2 C 67 18 100 10/05/22 08:30 112/65 10/05/22 08:00 37.2 C 65 18 100 10/05/22 07:52 122/64 10/05/22 07:52 37.3 C 66 18 100 10/05/22 07:29 108/57 L 10/05/22 07:26 60 18 91 10/05/22 09:00 10/05/22 11:00 68 94/57 L 10/05/22 08:00 65 10/05/22 10:30 37.1 C 70 98/55 L 10/05/22 10:36 37.1 C 70 18 95/55 L 10/05/22 10:22 37.1 C 70 18 94/55 L 10/05/22 10:07 37.1 C 67 18 108/59 L 10/05/22 10:00 37.1 C 66 105/59 L 10/05/22 10:04 37.1 C 66 17 105/59 L 10/05/22 09:51 37.1 C 70 17 96/53 L 100 10/05/22 09:30 69 105/57 L 10/05/22 09:00 68 110/58 L 10/05/22 08:30 67 112/65 10/05/22 08:00 66 120/63 10/05/22 07:48 63 122/64 10/05/22 07:35 37.3 C 64 10/05/22 07:24 18 10/05/22 06:36 61 23 95 10/05/22 05:19 84 183/80 H O2 Del Method FiO2 10/05/22 15:00 10/05/22 14:30 Oxymask 10/05/22 14:30 10/05/22 14:00 Oxymask 10/05/22 13:30 Oxymask 10/05/22 13:00 Oxymask 10/05/22 12:30 Mechanical Vent 10/05/22 12:00 Mechanical Vent 10/05/22 12:00 10/05/22 11:30 Mechanical Vent 10/05/22 12:00 40 10/05/22 12:58 40 10/05/22 12:33 40 10/05/22 11:11 40 10/05/22 12:21 Mechanical Vent 10/05/22 11:15 10/05/22 11:20 Mechanical Vent 10/05/22 11:15 Mechanical Vent 10/05/22 11:15 10/05/22 11:07 Mechanical Vent 10/05/22 11:07 10/05/22 11:00 Mechanical Vent 10/05/22 11:00 10/05/22 10:58 Mechanical Vent 10/05/22 10:58 10/05/22 10:45 Mechanical Vent 10/05/22 10:45 10/05/22 10:40 Mechanical Vent 10/05/22 10:32 Mechanical Vent 10/05/22 10:32 10/05/22 10:20 Mechanical Vent 10/05/22 10:15 10/05/22 10:15 Mechanical Vent 10/05/22 10:00 Mechanical Vent 10/05/22 10:00 10/05/22 09:45 Mechanical Vent 10/05/22 09:45 10/05/22 09:40 Mechanical Vent 10/05/22 09:30 10/05/22 09:30 Mechanical Vent 10/05/22 09:15 Mechanical Vent 10/05/22 09:15 10/05/22 09:00 Mechanical Vent 10/05/22 08:45 10/05/22 08:40 Mechanical Vent 10/05/22 08:30 Mechanical Vent 10/05/22 08:30 10/05/22 08:00 Mechanical Vent 10/05/22 07:52 10/05/22 07:52 Mechanical Vent 10/05/22 07:29 10/05/22 07:26 Mechanical Vent 10/05/22 09:00 40 10/05/22 11:00 10/05/22 08:00 10/05/22 10:30 10/05/22 10:36 10/05/22 10:22 10/05/22 10:07 10/05/22 10:00 10/05/22 10:04 10/05/22 09:51 10/05/22 09:30 10/05/22 09:00 10/05/22 08:30 10/05/22 08:00 10/05/22 07:48 10/05/22 07:35 10/05/22 07:24 40 10/05/22 06:36 50 10/05/22 05:19 Laboratory Results Short CBC 10/04/22 10/05/22 Range/Units 19:07 03:50 WBC 7.09 7.80 (4.8-10.8) K/ul Hgb 7.7 L 7.9 L (12.0-16.0) g/dl Hct 25.6 L 25.8 L (37.0-47.0) % Plt Count 299 301 (130-400) K/uL BMP 10/04/22 10/05/22 19:07 03:50 Sodium 137 138 Potassium 5.1 4.9 Chloride 95 L 96 L Carbon Dioxide 33 H 32 BUN 43 H 45 H Creatinine 6.22 H* 6.49 H* Glucose 91 156 H Calcium 9.2 9.5 Liver Function 10/04/22 Range/Units 19:07 Total Bilirubin 0.4 (0.2-1.0) mg/dl AST 22 (13-39) U/L ALT 12 (7-52) U/L Alkaline Phosphatase 146 H (34-104) U/L Albumin 3.7 (3.4-5.0) gm/dl
[2022-10-05] MEDS: ATORVASTATIN 40 MG TAB PO SCH (22:20)
[2022-10-05] MEDS: POLYETHYLENE (MIRALAX) 17 GM PACK PO PRN (23:45)
[2022-10-06] MEDS: METOPROLOL TARTRATE 1 MG/ML VIAL IV SCH ×4 (00:24→17:14)
[2022-10-06] MEDS: fentaNYL citrate PF 100 MCG/2 ML VIAL IV PRN ×2 (03:39→20:44)
[2022-10-06 04:53] LABS: Hemoglobin 8.4 g/dl (12.0-16.0); Mean Corpuscular Hemoglobin 27.1 pg (25.0-34.0); Mean Corpuscular Hgb Conc 31.1 g/dL (32.0-36.0); Mean Corpuscular Volume 87.1 fL (80.0-100.0); Mean Platelet Volume 8.9 fL (9.4-12.4); Nucleated RBC # (auto) 0.06 K/uL (0-0.12); Platelet Count 239 K/uL (130-400); RDW Coefficient of Variation 16.7 % (11.5-14.5); RDW Standard Deviation 50.4 fL (36.4-46.3); White Blood Count 5.75 K/ul (4.8-10.8)
[2022-10-06 05:09] LABS: BUN Creatinine Ratio 6.6 (10-20); Calcium 9.4 mg/dl (8.6-10.3); Creatinine Clr Calc Pharmacy 9.2 ml/min; Est GFR (African American) 10.6 ml/min; Est GFR (Non-African American) 9.1 ml/min; Magnesium 2.3 mg/dl (1.7-2.4); Phosphorus 4.6 mg/dl (2.5-4.9); Potassium 5.2 mmol/L (3.5-5.1)
[2022-10-06 05:35] LABS: Ferritin 1371.8 ng/ml (8-388)
[2022-10-06] MEDS: HEPARIN SOD 5,000 UNIT/0.5 ML VIAL SQ SCH ×3 (07:06→20:56)
[2022-10-06] MEDS: propofoL 1,000 MG/100 ML VIAL IV SCH (07:07)
[2022-10-06] MEDS: PANTOprazole 40 MG TAB PO SCH (07:08)
--- NOTE | 2022-10-06 07:22 | XRay Report ---
XR chest 1V portable HISTORY: 76 years-old Female CHF acute shortness of breath COMPARISON: Chest CT 10/05/2022 TECHNIQUE: AP view of the chest FINDINGS: Cardiac silhouette is enlarged. Interval extubation. Mild right hemidiaphragmatic elevation. Small pl eural effusions mildly improved pulmonary edema. Hiatal hernia. Degenerative changes of the shoulders and spine. IMPRESSION: 1. Cardiomegaly with mildly improved pulmonary edema. 2. Small pleural effusions. 3. Hiatal hernia. 4. Interval extubation with removal of the enteric tube. ACT 112: Negative or not required by law. The above report was generated using voice recognition software. It may contain grammatical, syntax o r spelling errors. Electronically signed by: Zan Acevedo M.D. 10/06/2022 7:21 AM
--- NOTE | 2022-10-06 07:42 | Critical Care Progress Note ---
Date of Service October 06, 2022 Assessment & Plan (1) Acute and chronic respiratory failure with hypoxia: Plan: Reason Critically Ill: 76-year-old female with end-stage renal disease requiring dialysis presents to the ICU with acute hypoxic respiratory failure and was emergently intubated following a code purple. Cardiac - CHFprevious echo 04/16 with normal LV function EF 60%, grade 2 diastolic dysfunction, mild aortic valve sclerosis with mild aortic valve stenosis and mild regurg, mild mitral regurg, mild tricuspid regurg, pulmonary hypertension -Tolerated dialysis yesterday -Tolerated second round of dialysis today History of atrial tachycardia -Previous records and fill history indicate patient taking 75 mg metoprolol succinate twice daily. Respiratory - Acute hypoxic respiratory failureresolved: Successfully liberated from ventilator yesterday GI - Renal diet Family requesting milk of magnesium for constipation. RENAL/LYTES - ESRDunderwent dialysis today - Foleyoliguric, monitor strict I's and O ENDO - DM type IIdiet controlled. Currently euglycemic. ICU hyperglycemic protocol HEME - H&H stable, monitor routine CBC ID - No indication for infectious process at this time. Trend fever curve LINES/IV ACCESS - Peripheral IVs DVT PROPHYLAXIS - SCDs, subcu heparin Likely able to downgrade out of ICU after dialysis (2) CHF (congestive heart failure): (3) Dialysis patient: (4) Multifocal atrial tachycardia: (5) Aortic stenosis: (6) GERD (gastroesophageal reflux disease): (7) Diabetes mellitus: (8) Asthma, moderate persistent: (9) End-stage renal disease on hemodialysis: Admission and Anticipated Discharge Date Admission Date: October 04, 2022 Subjective Slept okay overnight. No significant complaint. No chest pain Physical Exam Physical Exam: General: Alert. nontoxic. Skin: Warm, dry, Head: Atraumatic Ears, nose, mouth and throat: airway patent Cardiovascular: Normal peripheral perfusion Respiratory: no respiratory distress Gastrointestinal: Non distended Musculoskeletal: No deformity Results & Data Results & Data Vital Signs (Past 12 Hours) Vital Signs Pulse Resp BP Pulse Ox O2 Del Method FiO2 10/06/22 07:06 62 143/64 H 10/05/22 20:00 Oxymask, CPAP 10/06/22 02:17 67 21 99 40 10/06/22 00:53 63 10/06/22 00:39 63 131/59 L 10/06/22 00:26 70 20 100 40 10/06/22 00:24 69 126/53 L Coding Level of Care Code 73540 SUB INP/OBS CARE 350MIN Diagnoses Acute and chronic respiratory failure with hypoxia J96.21 CHF (congestive heart failure) I50.9 Heart failure chronicity: acute Heart failure type: unspecified Dialysis patient Z99.2 Multifocal atrial tachycardia I47.1 Aortic stenosis I35.0 GERD (gastroesophageal reflux disease) K21.9 Diabetes mellitus E11.9 Asthma, moderate persistent J45.40 End-stage renal disease on hemodialysis N18.6; Z99.2 (2) CHF (congestive heart failure) Heart failure chronicity: acute Heart failure type: unspecified Qualified Code(s): I50.9 - Heart failure, unspecified
[2022-10-06] MEDS: SEVELAMER HCL 800 MG TABLET PO SCH ×3 (08:03→18:14)
[2022-10-06] MEDS: amLODIPine BESYLATE 5 MG TAB PO SCH (08:04)
[2022-10-06] MEDS: ASPIRIN 81 MG ECTAB PO SCH (08:11)
[2022-10-06] MEDS: UMECLIDINIUM/VILANTEROL 62.5/25MCG 7 PUFFS/INHALER INH SCH (08:20)
[2022-10-06] MEDS: ISOSORBIDE MONO EXTENDED REL 30 MG TABCR PO SCH (08:20)
[2022-10-06] MEDS: FLUTICASONE FUROATE 100MCG 14 PUFFS/INHALER INH SCH (08:20)
[2022-10-06] MEDS: NEPHROCAPS PO SCH (08:21)
--- NOTE | 2022-10-06 08:35 | Nephrology Progress Note ---
Date of Service October 06, 2022 Assessment & Plan (1) End-stage renal disease on hemodialysis: Plan: * Outpatient HD Rx: C Rick MWF 3.25 hr, F-180NR, Qb 350/Qd 600, 2K 2Ca, Na137, HCO3 36, EDW 67.5kg, heparin 1500 unit loading dose, L BC AVF * Dialysis provided 10/05 for 3L UF and administration of 1 unit PRBC. No complications during treatment yesterday * Patient is clinically euvolemic this morning, breathing comfortably flat in bed on O2 at 3L/min NC. CXR shows improvement in CHF, but persistent pulmonary edema. Serum K 5.2 this am * Will provide HD today for 3 hours on 2K 2Ca bath and attempt 2 L UF. Note that patient is currently 2.2 kg below her outpatient EDW * HD orders placed in EMR and irrigation equipment remover HD RN notified. POC discussed w/ patient's daughter Jenny by telephone this morning and the ICU team (2) Anemia: Plan: * Hgb improved from 7.9 to 8.4 following one unit PRBC w/ dialysis yesterday. Hold further transfusion at this time * Epogen 10,000 units IV given w/ HD 10/05/22 * Iron saturation 21% w/ Ferritin 1371. Ferritin > 1200 precludes further IV iron therapy at this time (3) Acute and chronic respiratory failure with hypoxia: Plan: * Improved. CXR with mild pulmonary edema. Attempt 2L UF today (4) Sleep apnea: Plan: * On nocturnal CPAP at home. Daughter will bring in CPAP machine today Admission and Anticipated Discharge Date Admission Date: October 04, 2022 Subjective Ms. Ward was evaluated in the ICU this morning. She was successfully weaned from the mechanical ventilator at 1pm yesterday. This morning Mr. Ward was breathing comfortably flat in bed on O2 at 3L/min NC. She was oriented to self, place and month. CXR this am shows improvement in CHF but persistent pulmonary edema. Ms. Ward is 2.2 kg below her outpatient EDW this am Review of Systems Constitutional: no fever Eyes: no problem reported Ear, Nose, Mouth, Throat: no problem reported Respiratory: no cough and no dyspnea Cardiovascular: no chest pain Gastrointestinal: no abdominal pain, no nausea, no vomiting and no diarrhea/loose stools Physical Exam Eyes: PERRL, conjunctivae normal, anicteric sclerae ENMT: external ear and nose normal, oropharynx normal Neck: trachea midline, no thyromegaly Cardiovascular: Rate/Rhythm: regular rate and regular rhythm Extremities: + edema (trace pretibial edema) L BC AVF + bruit Gastrointestinal (Abdomen): normal bowel sounds, soft, nontender, no hepatosplenomegaly Skin: no rashes Results & Data Vital Signs (Past 12 Hours) Vital Signs Pulse Resp BP Pulse Ox FiO2 10/06/22 08:02 69 144/62 H 10/06/22 07:06 62 143/64 H 10/06/22 02:17 67 21 99 40 10/06/22 00:53 63 10/06/22 00:39 63 131/59 L 10/06/22 00:26 70 20 100 40 10/06/22 00:24 69 126/53 L Laboratory Results Laboratory Tests 10/06/22 10/06/22 10/06/22 04:32 04:32 04:32 WBC 5.75 Hgb 8.4 L Hct 27.0 L Plt Count 239 Sodium 139 Potassium 5.2 H Chloride 100 Carbon Dioxide 31 BUN 29 H Creatinine 4.40 H D Calcium 9.4 Phosphorus 4.6 D Magnesium 2.3 Iron 36 Ferritin 1371.8 H Procalcitonin 2.73 H Diagnostic Findings 10/06/22 CXR: 1. Cardiomegaly with mildly improved pulmonary edema. 2. Small pleural effusions. 3. Hiatal hernia. 4. Interval extubation with removal of the enteric tube. PG Care Time/CCT Total # of Minutes Spent Total Time Spent with Patient: Total time spent is greater than 50% in coordination of care (as documented) at patient's floor/unit and/or counseling patient: Coding Level of Care Code 90742 SUB INP/OBS CARE 3/50MIN Diagnoses End-stage renal disease on hemodialysis N18.6; Z99.2 Anemia D64.9 Anemia type: unspecified type Acute and chronic respiratory failure with hypoxia J96.21 Sleep apnea G47.30 (2) Anemia Anemia type: unspecified type Qualified Code(s): D64.9 - Anemia, unspecified
[2022-10-06] MEDS ORDERED: SODIUM CHLORIDE 0.9% 1000ML 1,000 ML IV PRN (09:07)
[2022-10-06] MEDS: INSULIN ASPART PER UNIT CHARGE SC SCH ×4 (09:08→21:49)
--- NOTE | 2022-10-06 13:34 | Hospitalist Progress Note ---
Date of Service October 06, 2022 Assessment & Plan (1) Acute hypoxemic respiratory failure: Plan: Acute hypoxic respiratory failure Secondary to volume overload End-stage renal disease H/O diastolic dysfunction Troponin elevation likely demand ischemia secondary to volume overload, in setting of end-stage renal disease Lactic Acidosis Chronic respiratory failure--on 2 L supplemental oxygen intermittently Pulm HTN --CT Chest:Endotracheal tube terminates 2 cm from the lashae. Nasogastric tube terminates in the proximal stomach. This could be advanced by approximately 5 cm as the fenestrated line is located within the distal esophagus. Cardiomegaly with pulmonary edema and small bilateral pleural effusions. Multifocal patchy groundglass airspace opacities, right greater than left. This could represent alveolar pulmonary edema or a superimposed pneumonia. Consolidation within the bilateral lower lobes and right upper lobe posteriorly may represent a combination of atelectasis and pneumonia. Mediastinal lymphadenopathy, unchanged. --CT Head:No acute intracranial hemorrhage, no evidence of acute territorial infarction or other acute intracranial disease process. --Vent management as per critical team -- Extubated on 10/05/2022 Volume status being managed through dialysis Appreciate critical care, nephrology input Monitor volume status Getting hemodialysis today Saturating well on baseline supplemental oxygen Volume status improved Acute on Chronic Anemia S/P 1 unit PRBCs Monitor CBC Received Epogen on 10/05/2022 Hb 8.4 today Valvular heart disease Mild AR/MR/TR HTN continue home meds LAUREN on CPAP HTN HLP Continue home meds Bronchial Asthma Not in acute exacerbation DM II Continue Insulin per protocol Monitor BGs DVT Px Heparin SQ Code Status Full code Admission and Anticipated Discharge Date Admission Date: October 04, 2022 Subjective Patient is seen and examined at bedside Patient feels better today Having hemodialysis during my encounter Reports right knee pain at surgical site Denies any dyspnea, chest pain, dizziness, nausea, vomiting, abdominal pain Saturating well on baseline supplemental oxygen Review of Systems Review of Systems: All systems reviewed & are unremarkable except as noted in Subjective Physical Exam Physical Exam: Physical Exam: Vitals signs as noted above General Appearance:Moderately built and nourished, no apparent distress Head: normocephalic, Atraumatic Eyes: normal inspection, EOMI Neck: supple, Trachea midline Respiratory/Chest: Decreased breath sounds, CTA, No accessory muscle use Cardiovascular: S1, S2, No murmur Abdomen/GI:Soft, Non tender, Bowel sounds present Extremities/Musculoskeletal:normal inspection, Trace pedal edema Neurologic/Psych:Alert, awake, oriented, grossly no focal deficits Skin: normal color, warm Results & Data Results & Data Vital Signs (Past 12 Hours) Vital Signs Temp Pulse Pulse Resp BP Pulse Ox O2 Del Method 10/06/22 13:00 76 137/64 10/06/22 12:30 75 143/71 H 10/06/22 12:00 68 141/64 H 10/06/22 11:30 37.3 C 68 97 Nasal Cannula 10/06/22 11:30 140/64 10/06/22 11:01 37.3 C 65 22 96 Nasal Cannula 10/06/22 11:01 142/68 H 10/06/22 11:00 37.3 C 70 10/06/22 10:47 37.4 C 64 24 97 Nasal Cannula 10/06/22 10:47 141/64 H 10/06/22 10:30 37.5 C 63 22 96 Nasal Cannula 10/06/22 10:30 140/63 10/06/22 10:21 146/64 H 10/06/22 10:21 37.5 C 66 21 97 Nasal Cannula 10/06/22 10:00 37.5 C 64 22 96 Nasal Cannula 10/06/22 10:00 124/56 L 10/06/22 11:30 68 140/64 10/06/22 11:00 65 142/68 H 10/06/22 10:47 65 141/64 H 10/06/22 10:30 64 140/63 10/06/22 10:20 36.7 C 74 10/06/22 09:30 37.5 C 68 19 98 Nasal Cannula 10/06/22 09:30 138/59 L 10/06/22 09:00 37.4 C 67 23 97 Nasal Cannula 10/06/22 09:00 140/58 L 10/06/22 08:30 37.4 C 71 10 L 97 Nasal Cannula 10/06/22 08:30 134/59 L 10/06/22 08:00 37.4 C 71 18 97 Nasal Cannula 10/06/22 08:00 144/62 H 10/06/22 07:30 37.5 C 77 26 H 10/06/22 07:00 37.5 C 65 21 99 Oxymask 10/06/22 07:00 143/64 H 10/06/22 09:15 Nasal Cannula 10/06/22 08:00 65 10/06/22 08:02 69 144/62 H 10/06/22 07:06 62 143/64 H 10/06/22 02:17 67 21 99 O2 Flow Rate FiO2 10/06/22 13:00 10/06/22 12:30 10/06/22 12:00 10/06/22 11:30 2 10/06/22 11:30 10/06/22 11:01 2 10/06/22 11:01 10/06/22 11:00 10/06/22 10:47 2 10/06/22 10:47 10/06/22 10:30 2 10/06/22 10:30 10/06/22 10:21 10/06/22 10:21 2 10/06/22 10:00 2 10/06/22 10:00 10/06/22 11:30 10/06/22 11:00 10/06/22 10:47 10/06/22 10:30 10/06/22 10:20 10/06/22 09:30 3 10/06/22 09:30 10/06/22 09:00 3 10/06/22 09:00 10/06/22 08:30 3 10/06/22 08:30 10/06/22 08:00 3 10/06/22 08:00 10/06/22 07:30 10/06/22 07:00 10/06/22 07:00 10/06/22 09:15 3 10/06/22 08:00 10/06/22 08:02 10/06/22 07:06 10/06/22 02:17 40 Laboratory Results Short CBC 10/06/22 Range/Units 04:32 WBC 5.75 (4.8-10.8) K/ul Hgb 8.4 L (12.0-16.0) g/dl Hct 27.0 L (37.0-47.0) % Plt Count 239 (130-400) K/uL BMP 10/06/22 04:32 Sodium 139 Potassium 5.2 H Chloride 100 Carbon Dioxide 31 BUN 29 H Creatinine 4.40 H D Glucose 84 Calcium 9.4
[2022-10-06] MEDS: ACETAMINOPHEN 500 MG TAB PO PRN (13:58)
[2022-10-06] MEDS ORDERED: ONDANSETRON INJ 2 MG/ML 2 ML VIAL ONE (16:18)
[2022-10-06] MEDS: ONDANSETRON INJ 2 MG/ML 2 ML VIAL IV PRN ×2 (16:21→16:22)
[2022-10-06] MEDS ORDERED: ACETAMINOPHEN 1,000 MG/100 ML VIAL IV STA (18:05)
[2022-10-06] MEDS: POLYETHYLENE (MIRALAX) 17 GM PACK PO PRN (20:43)
[2022-10-06] MEDS: ATORVASTATIN 40 MG TAB PO SCH (20:45)
[2022-10-06] MEDS: FAMOTIDINE 20 MG TAB PO SCH (20:55)
[2022-10-06] MEDS: METOPROLOL SUCC 25MG EXT REL TAB PO SCH (20:55)
[2022-10-07 05:35] LABS: Hematocrit (blood only) 30.7 % (37.0-47.0); Mean Corpuscular Hemoglobin 26.4 pg (25.0-34.0); Mean Corpuscular Hgb Conc 29.3 g/dL (32.0-36.0); Nucleated RBC # (auto) 0.03 K/uL (0-0.12); Nucleated RBC % (auto) 0.5 %; Platelet Count 237 K/uL (130-400); RDW Coefficient of Variation 16.8 % (11.5-14.5); RDW Standard Deviation 53.7 fL (36.4-46.3); Red Blood Count 3.41 M/uL (4.20-5.40); White Blood Count 5.91 K/ul (4.8-10.8)
[2022-10-07 05:47] LABS: BUN Creatinine Ratio 6.4 (10-20); Calcium 9.7 mg/dl (8.6-10.3); Creatinine Clr Calc Pharmacy 10.3 ml/min; Est GFR (African American) 12.2 ml/min; Est GFR (Non-African American) 10.5 ml/min; Magnesium 2.2 mg/dl (1.7-2.4); Phosphorus 3.9 mg/dl (2.5-4.9); Potassium 4.4 mmol/L (3.5-5.1)
[2022-10-07] MEDS: HEPARIN SOD 5,000 UNIT/0.5 ML VIAL SQ SCH ×3 (06:22→21:19)
[2022-10-07] MEDS: PANTOprazole 40 MG TAB PO SCH (06:22)
[2022-10-07] MEDS: ACETAMINOPHEN 500 MG TAB PO PRN (08:09)
[2022-10-07] MEDS: INSULIN ASPART PER UNIT CHARGE SC SCH ×2 (08:10→11:41)
[2022-10-07] MEDS: SEVELAMER HCL 800 MG TABLET PO SCH ×3 (08:11→17:30)
--- NOTE | 2022-10-07 08:18 | Nephrology Progress Note ---
Date of Service October 07, 2022 Assessment & Plan (1) End-stage renal disease on hemodialysis: Plan: * Outpatient HD Rx: [facility] MWF 3.25 hr, F-180NR, Qb 350/Qd 600, 2K 2Ca, Na137, HCO3 36, EDW 67.5kg, heparin 1500 unit loading dose, L BC AVF * Dialysis provided 10/06 for additional 2L UF. No complications during treatment yesterday * Patient is clinically euvolemic this morning, breathing comfortably flat in bed on O2 at 1L/min NC * No acute indication for HD today. Recommend transfer to medical floor, wean O2 to off, begin physical therapy/ambulation. Will reassess need for HD in am, however, would like to treat the next 2 days as a "weekend" and resume patient's regular MWF schedule on Wednesday. Patient's family expressed interest in PT evaluation and possible transfer to [facility] following hospitalization * POC discussed w/ the hospitalist team and patient's daughter Jenny (telephone) (2) Anemia: Plan: * Hgb improved to 9.0 this morning. Hold further transfusion at this time * Epogen 10,000 units IV given w/ HD 10/05/22 * Iron saturation 21% w/ Ferritin 1371. Ferritin > 1200 precludes further IV iron therapy at this time (3) Acute and chronic respiratory failure with hypoxia: Plan: * Clinically improved. Will contact [facility] HD unit and reduce EDW to 65 kg (4) Sleep apnea: Plan: * On nocturnal CPAP at home Admission and Anticipated Discharge Date Admission Date: October 04, 2022 Subjective Ms. Ward was evaluated in the ICU this morning. She denied angina or dyspnea. Her breathing was comfortable lying flat in bed on O2 at 1 L/min NC Review of Systems Constitutional: no fever Eyes: no problem reported Ear, Nose, Mouth, Throat: no problem reported Respiratory: no cough and no dyspnea Cardiovascular: no chest pain Gastrointestinal: no abdominal pain, no nausea, no vomiting and no diarrhea/loose stools Physical Exam Eyes: PERRL, conjunctivae normal, anicteric sclerae ENMT: external ear and nose normal, oropharynx normal Neck: trachea midline, no thyromegaly Respiratory: normal respiratory effort, lungs clear to auscultation Cardiovascular: Rate/Rhythm: regular rate and regular rhythm Extremities: no edema Gastrointestinal (Abdomen): normal bowel sounds, soft, nontender, no hepatosplenomegaly Skin: no rashes Results & Data Vital Signs (Past 12 Hours) Vital Signs Temp Pulse Pulse Resp BP BP Pulse Ox 10/07/22 06:30 36.9 C 69 17 96 10/07/22 06:30 155/68 H 10/07/22 06:00 37.0 C 65 21 98 10/07/22 06:00 140/64 10/07/22 05:35 161/94 H 10/07/22 05:35 66 21 10/07/22 05:30 74 10/07/22 05:00 37.1 C 64 21 98 10/07/22 05:00 138/62 10/07/22 04:30 37.2 C 64 13 97 10/07/22 04:30 153/65 H 10/07/22 04:00 37.2 C 64 17 98 10/07/22 04:00 136/62 10/07/22 03:30 37.3 C 61 20 98 10/07/22 03:30 134/59 L 10/07/22 03:00 37.2 C 63 20 95 10/07/22 03:00 140/60 10/07/22 02:30 37.3 C 63 21 98 10/07/22 02:30 126/62 10/07/22 02:00 37.3 C 69 18 98 10/07/22 02:00 140/61 10/07/22 01:30 37.3 C 63 20 97 10/07/22 01:30 130/63 10/07/22 01:00 37.3 C 65 17 95 10/07/22 01:00 135/60 10/07/22 00:30 37.3 C 63 21 97 10/07/22 00:30 123/58 L 10/07/22 00:00 37.4 C 67 21 99 10/07/22 00:00 142/70 H 10/06/22 23:30 37.4 C 71 18 99 10/06/22 23:30 147/70 H 10/06/22 23:00 37.4 C 68 19 99 10/06/22 23:00 154/70 H 10/06/22 22:30 37.4 C 69 21 98 10/06/22 22:30 154/71 H 10/06/22 22:00 37.4 C 77 18 96 10/06/22 22:00 154/65 H 10/06/22 21:30 37.6 C H 75 21 98 10/06/22 21:30 150/72 H 10/06/22 21:00 37.7 C H 79 21 97 10/06/22 21:00 153/66 H 10/06/22 20:30 37.7 C H 79 96 10/06/22 20:30 133/57 L 10/07/22 06:50 90 10/07/22 00:00 63 10/07/22 06:30 36.9 C 68 14 155/68 H 95 10/07/22 00:00 37.4 C 69 22 98 10/06/22 21:43 Pulse Ox O2 Del Method O2 Del Method O2 Flow Rate O2 Flow Rate 10/07/22 06:30 10/07/22 06:30 10/07/22 06:00 10/07/22 06:00 10/07/22 05:35 10/07/22 05:35 10/07/22 05:30 10/07/22 05:00 10/07/22 05:00 10/07/22 04:30 10/07/22 04:30 10/07/22 04:00 10/07/22 04:00 10/07/22 03:30 10/07/22 03:30 10/07/22 03:00 10/07/22 03:00 10/07/22 02:30 10/07/22 02:30 10/07/22 02:00 10/07/22 02:00 10/07/22 01:30 10/07/22 01:30 10/07/22 01:00 10/07/22 01:00 10/07/22 00:30 10/07/22 00:30 10/07/22 00:00 10/07/22 00:00 10/06/22 23:30 10/06/22 23:30 10/06/22 23:00 10/06/22 23:00 10/06/22 22:30 10/06/22 22:30 10/06/22 22:00 10/06/22 22:00 10/06/22 21:30 10/06/22 21:30 10/06/22 21:00 10/06/22 21:00 10/06/22 20:30 10/06/22 20:30 10/07/22 06:50 Room Air, Nasal Cannula 0 10/07/22 00:00 10/07/22 06:30 Room Air 10/07/22 00:00 Nasal Cannula 2 10/06/22 21:43 99 Nasal Cannula 2 Laboratory Results Laboratory Tests 10/07/22 10/07/22 05:03 05:03 WBC 5.91 Hgb 9.0 L Hct 30.7 L Plt Count 237 Sodium 138 Potassium 4.4 Chloride 103 Carbon Dioxide 28 BUN 25 H Creatinine 3.90 H D Glucose 92 PG Care Time/CCT Total # of Minutes Spent Total Time Spent with Patient: Total time spent is greater than 50% in coordination of care (as documented) at patient's floor/unit and/or counseling patient: Coding Level of Care Code 47102 SUB INP/OBS CARE 3/50MIN Diagnoses End-stage renal disease on hemodialysis N18.6; Z99.2 Anemia D64.9 Anemia type: unspecified type Acute and chronic respiratory failure with hypoxia J96.21 Sleep apnea G47.30 (2) Anemia Anemia type: unspecified type Qualified Code(s): D64.9 - Anemia, unspecified
[2022-10-07] MEDS: amLODIPine BESYLATE 5 MG TAB PO SCH (09:09)
[2022-10-07] MEDS: ASPIRIN 81 MG ECTAB PO SCH (09:10)
[2022-10-07] MEDS: FAMOTIDINE 20 MG TAB PO SCH ×2 (09:10→21:19)
[2022-10-07] MEDS: ISOSORBIDE MONO EXTENDED REL 30 MG TABCR PO SCH (09:11)
[2022-10-07] MEDS: FLUTICASONE FUROATE 100MCG 14 PUFFS/INHALER INH SCH (09:11)
--- NOTE | 2022-10-07 09:11 | Critical Care Progress Note ---
Date of Service October 07, 2022 Assessment & Plan (1) Acute and chronic respiratory failure with hypoxia: Plan: Reason Critically Ill: 76-year-old female with end-stage renal disease requiring dialysis presents to the ICU with acute hypoxic respiratory failure and was emergently intubated following a code purple. Cardiac - CHFprevious echo 04/16 with normal LV function EF 60%, grade 2 diastolic dysfunction, mild aortic valve sclerosis with mild aortic valve stenosis and mild regurg, mild mitral regurg, mild tricuspid regurg, pulmonary hypertension -Symptomatically improved History of atrial tachycardia -Previous records and fill history indicate patient taking 75 mg metoprolol succinate twice daily. Respiratory - Acute hypoxic respiratory failureresolved GI - Renal diet - milk of magnesium for constipation per her request. RENAL/LYTES - ESRDmanaged per nephrology - Foleydiscontinue Driscoll ENDO - DM type IIdiet controlled. Currently euglycemic. ICU hyperglycemic protocol HEME - H&H stable, monitor routine CBC ID - No indication for infectious process at this time. Trend fever curve LINES/IV ACCESS - Peripheral IVs DVT PROPHYLAXIS - SCDs, subcu heparin Stable for downgrade out of ICU (2) CHF (congestive heart failure): (3) Dialysis patient: (4) Multifocal atrial tachycardia: (5) Aortic stenosis: (6) GERD (gastroesophageal reflux disease): (7) Diabetes mellitus: (8) Asthma, moderate persistent: (9) End-stage renal disease on hemodialysis: Admission and Anticipated Discharge Date Admission Date: October 04, 2022 Physical Exam Physical Exam: General: Alert. nontoxic. Skin: Warm, dry, Head: Atraumatic Ears, nose, mouth and throat: airway patent Cardiovascular: Normal peripheral perfusion Respiratory: no respiratory distress Gastrointestinal: Non distended Musculoskeletal: No deformity Results & Data Results & Data Vital Signs (Past 12 Hours) Vital Signs Temp Pulse Pulse Resp BP BP Pulse Ox 10/07/22 08:00 37.2 C 67 18 143/67 H 96 10/07/22 07:00 36.9 C 69 22 144/62 H 99 10/07/22 06:30 36.9 C 69 17 96 10/07/22 06:30 155/68 H 10/07/22 06:00 37.0 C 65 21 98 10/07/22 06:00 140/64 10/07/22 05:35 161/94 H 10/07/22 05:35 66 21 08/16/23 05:30 74 10/07/22 05:00 37.1 C 64 21 98 10/07/22 05:00 138/62 10/07/22 04:30 37.2 C 64 13 97 10/07/22 04:30 153/65 H 10/07/22 04:00 37.2 C 64 17 98 10/07/22 04:00 136/62 10/07/22 03:30 37.3 C 61 20 98 10/07/22 03:30 134/59 L 10/07/22 03:00 37.2 C 63 20 95 10/07/22 03:00 140/60 10/07/22 02:30 37.3 C 63 21 98 10/07/22 02:30 126/62 10/07/22 02:00 37.3 C 69 18 98 10/07/22 02:00 140/61 10/07/22 01:30 37.3 C 63 20 97 10/07/22 01:30 130/63 10/07/22 01:00 37.3 C 65 17 95 10/07/22 01:00 135/60 10/07/22 00:30 37.3 C 63 21 97 10/07/22 00:30 123/58 L 10/07/22 00:00 37.4 C 67 21 99 10/07/22 00:00 142/70 H 10/06/22 23:30 37.4 C 71 18 99 10/06/22 23:30 147/70 H 10/06/22 23:00 37.4 C 68 19 99 10/06/22 23:00 154/70 H 10/06/22 22:30 37.4 C 69 21 98 10/06/22 22:30 154/71 H 10/06/22 22:00 37.4 C 77 18 96 10/06/22 22:00 154/65 H 10/06/22 21:30 37.6 C H 75 21 98 10/06/22 21:30 150/72 H 10/07/22 06:50 90 10/07/22 00:00 63 10/07/22 06:30 36.9 C 68 14 155/68 H 95 10/07/22 00:00 37.4 C 69 22 98 10/06/22 21:43 Pulse Ox O2 Del Method O2 Del Method O2 Flow Rate O2 Flow Rate 10/07/22 08:00 Nasal Cannula 1 10/07/22 07:00 Nasal Cannula 1 10/07/22 06:30 10/07/22 06:30 10/07/22 06:00 10/07/22 06:00 10/07/22 05:35 10/07/22 05:35 10/07/22 05:30 10/07/22 05:00 10/07/22 05:00 10/07/22 04:30 10/07/22 04:30 10/07/22 04:00 10/07/22 04:00 10/07/22 03:30 10/07/22 03:30 10/07/22 03:00 10/07/22 03:00 10/07/22 02:30 10/07/22 02:30 10/07/22 02:00 10/07/22 02:00 10/07/22 01:30 10/07/22 01:30 10/07/22 01:00 10/07/22 01:00 10/07/22 00:30 10/07/22 00:30 10/07/22 00:00 10/07/22 00:00 10/06/22 23:30 10/06/22 23:30 10/06/22 23:00 10/06/22 23:00 10/06/22 22:30 10/06/22 22:30 10/06/22 22:00 10/06/22 22:00 10/06/22 21:30 10/06/22 21:30 10/07/22 06:50 Room Air, Nasal Cannula 0 10/07/22 00:00 10/07/22 06:30 Room Air 10/07/22 00:00 Nasal Cannula 2 10/06/22 21:43 99 Nasal Cannula 2 Coding Diagnoses Acute and chronic respiratory failure with hypoxia J96.21 CHF (congestive heart failure) I50.9 Heart failure chronicity: acute Heart failure type: unspecified Dialysis patient Z99.2 Multifocal atrial tachycardia I47.1 Aortic stenosis I35.0 GERD (gastroesophageal reflux disease) K21.9 Diabetes mellitus E11.9 Asthma, moderate persistent J45.40 End-stage renal disease on hemodialysis N18.6; Z99.2 (2) CHF (congestive heart failure) Heart failure chronicity: acute Heart failure type: unspecified Qualified Code(s): I50.9 - Heart failure, unspecified
[2022-10-07] MEDS: NEPHROCAPS PO SCH (09:12)
[2022-10-07] MEDS: METOPROLOL SUCC 25MG EXT REL TAB PO SCH ×2 (09:12→21:19)
[2022-10-07] MEDS: UMECLIDINIUM/VILANTEROL 62.5/25MCG 7 PUFFS/INHALER INH SCH (09:13)
[2022-10-07] MEDS: ONDANSETRON INJ 2 MG/ML 2 ML VIAL IV PRN (09:29)
[2022-10-07] MEDS: MAGNESIUM HYDROXIDE SUSP 30 ML UDC PO PRN (10:10)
--- NOTE | 2022-10-07 12:52 | Hospitalist Progress Note ---
Date of Service October 07, 2022 Assessment & Plan (1) Acute hypoxemic respiratory failure: Plan: Patient is a 76-year-old female with past medical history of ESRD on hemodialysis, chronic anemia, sleep apnea presented to the ED with shortness of breath. She was needed to be emergently intubated following CODE BLUE and was transferred to ICU. She was extubated successfully on 10/05. She underwent dialysis on 10/05 for 3 L ultrafiltrate with 1 packed RBC. Also, underwent dialysis on 10/06 with 2 L ultrafiltrate. Acute hypoxic respiratory failure Secondary to volume overload End-stage renal disease H/O diastolic dysfunction Troponin elevation likely demand ischemia secondary to volume overload, in setting of end-stage renal disease Lactic Acidosis Chronic respiratory failure--on 2 L supplemental oxygen intermittently Pulm HTN --CT Chest Endotracheal tube terminates 2 cm from the lsahae. Nasogastric tube terminates in the proximal stomach. This could be advanced by approximately 5 cm as the fenestrated line is located within the distal esophagus. Cardiomegaly with pulmonary edema and small bilateral pleural effusions. Multifocal patchy groundglass airspace opacities, right greater than left. This could represent alveolar pulmonary edema or a superimposed pneumonia. Consolidation within the bilateral lower lobes and right upper lobe posteriorly may represent a combination of atelectasis and pneumonia. Mediastinal lymphadenopathy, u nchanged. --CT Head:No acute intracranial hemorrhage, no evidence of acute territorial infarction or other acute intracranial disease process. -- Extubated on 10/05/2022 Volume status being managed through dialysis underwent dialysis on 10/05 for 3 L ultrafiltrate with 1 packed RBC. Also, underwent dialysis on 10/06 with 2 L ultrafiltrate. PT OT ordered Acute on Chronic Anemia S/P 1 unit PRBCs Monitor CBC Received Epogen on 10/05/2022 Hemoglobin is stable Valvular heart disease Mild AR/MR/TR HTN continue home meds LAUREN on CPAP HTN HLP Continue home meds Bronchial Asthma Not in acute exacerbation DM II Continue Insulin per protocol Monitor BGs DVT Px Heparin SQ Code Status Full code Time spent evaluating patient, direct bedside care, chart review, placing orders, interpretation of diagnostic studies, discussion with consultants, patient, as well as other required patient management activities is 60 minutes. Please note the above document was generated using voice recognition software. It may contain grammatical, syntax or spelling errors. Any formal questions or concerns about the content, text or information contained within the body of this dictation should be directly addressed to the provider for clarification Admission and Anticipated Discharge Date Admission Date: October 04, 2022 Subjective Patient seen and examined at bedside. She reports that her shortness of breath has improved compared to admission. Review of Systems Review of Systems: All systems reviewed & are unremarkable except as noted in Subjective Physical Exam Physical Exam: Physical Exam: Vitals signs as noted above General Appearance:Moderately built and nourished, no apparent distress Head: normocephalic, Atraumatic Eyes: normal inspection, EOMI Neck: supple, Trachea midline Respiratory/Chest: Decreased breath sounds, CTA, No accessory muscle use Cardiovascular: S1, S2, No murmur Abdomen/GI:Soft, Non tender, Bowel sounds present Extremities/Musculoskeletal:normal inspection, Trace pedal edema Neurologic/Psych:Alert, awake, oriented, grossly no focal deficits Skin: normal color, warm Results & Data Results & Data Vital Signs (Past 12 Hours) Vital Signs Temp Pulse Pulse Resp BP BP Pulse Ox 10/07/22 10:58 10/07/22 08:00 10/07/22 08:00 37.2 C 67 18 143/67 H 96 10/07/22 07:00 36.9 C 69 22 144/62 H 99 10/07/22 06:30 36.9 C 69 17 96 10/07/22 06:30 155/68 H 10/07/22 06:00 37.0 C 65 21 98 10/07/22 06:00 140/64 10/07/22 05:35 161/94 H 10/07/22 05:35 66 21 10/07/22 05:30 74 10/07/22 05:00 37.1 C 64 21 98 10/07/22 05:00 138/62 10/07/22 04:30 37.2 C 64 13 97 10/07/22 04:30 153/65 H 10/07/22 04:00 37.2 C 64 17 98 10/07/22 04:00 136/62 10/07/22 03:30 37.3 C 61 20 98 10/07/22 03:30 134/59 L 10/07/22 03:00 37.2 C 63 20 95 10/07/22 03:00 140/60 10/07/22 02:30 37.3 C 63 21 98 10/07/22 02:30 126/62 10/07/22 02:00 37.3 C 69 18 98 10/07/22 02:00 140/61 10/07/22 01:30 37.3 C 63 20 97 10/07/22 01:30 130/63 10/07/22 01:00 37.3 C 65 17 95 10/07/22 01:00 135/60 10/07/22 06:50 90 10/07/22 06:30 36.9 C 68 14 155/68 H 95 Pulse Ox Pulse Ox O2 Del Method O2 Flow Rate O2 Flow Rate O2 Flow Rate 10/07/22 10:58 97 95 1 1 10/07/22 08:00 Nasal Cannula 1 10/07/22 08:00 Nasal Cannula 1 10/07/22 07:00 Nasal Cannula 1 10/07/22 06:30 10/07/22 06:30 10/07/22 06:00 10/07/22 06:00 10/07/22 05:35 10/07/22 05:35 10/07/22 05:30 10/07/22 05:00 10/07/22 05:00 10/07/22 04:30 10/07/22 04:30 10/07/22 04:00 10/07/22 04:00 10/07/22 03:30 10/07/22 03:30 10/07/22 03:00 10/07/22 03:00 10/07/22 02:30 10/07/22 02:30 10/07/22 02:00 10/07/22 02:00 10/07/22 01:30 10/07/22 01:30 10/07/22 01:00 10/07/22 01:00 10/07/22 06:50 Room Air, Nasal Cannula 0 10/07/22 06:30 Room Air Laboratory Results Laboratory Results WBC 5.91 K/ul (4.8-10.8) 10/07/22 05:03 RBC 3.41 M/uL (4.20-5.40) L 10/07/22 05:03 Hgb 9.0 g/dl (12.0-16.0) L 10/07/22 05:03 POC Hgb 8.8 g/dl (12.0-16.0) L 10/05/22 06:46 Hct 30.7 % (37.0-47.0) L 10/07/22 05:03 POC Hct 26 % (37-47) L 10/05/22 06:46 MCV 90.0 fL (80.0-100.0) 10/07/22 05:03 MCH 26.4 pg (25.0-34.0) 10/07/22 05:03 MCHC 29.3 g/dL (32.0-36.0) L 10/07/22 05:03 RDW Std Deviation 53.7 fL (36.4-46.3) H 10/07/22 05:03 RDW Coeff of Luis 16.8 % (11.5-14.5) H 10/07/22 05:03 Plt Count 237 K/uL (130-400) 10/07/22 05:03 MPV 9.0 fL (9.4-12.4) L 10/07/22 05:03 Immature Gran % (Auto) 0.3 % 10/05/22 03:50 Neut % (Auto) 75.9 % 10/05/22 03:50 Lymph % (Auto) 11.9 % 10/05/22 03:50 [place] % (Auto) 7.6 % 10/05/22 03:50 Eos % (Auto) 3.8 % 10/05/22 03:50 Baso % (Auto) 0.5 % 10/05/22 03:50 Neut # (Auto) 5.92 K/uL (1.40-6.50) 10/05/22 03:50 Lymph # (Auto) 0.93 K/uL (1.2-3.4) L 10/05/22 03:50 [place] # (Auto) 0.59 K/uL (0.11-0.59) 10/05/22 03:50 Eos # (Auto) 0.30 K/uL (0-0.50) 10/05/22 03:50 Baso # (Auto) 0.04 K/uL (0-0.2) 10/05/22 03:50 Immature Gran # (Auto) 0.02 K/uL (0.01-0.20) 10/05/22 03:50 Absolute Nucleated RBC 0.03 K/uL (0-0.12) 10/07/22 05:03 Nucleated RBC % (auto) 0.5 % 10/07/22 05:03 Polychromasia 1+ 10/05/22 03:50 PT 11.0 Seconds (9.0-12.0) 10/04/22 19:07 INR 1.0 (0.9-1.1) 10/04/22 19:07 APTT 30.5 Seconds (21.0-31.0) 10/05/22 03:50 PTT Ratio 1.1 10/05/22 03:50 Sample Site R Radial 10/05/22 06:46 POC pH 7.44 (7.35-7.45) 10/05/22 06:46 POC pCO2 42 mmHg (35-46) 10/05/22 06:46 POC pO2 106 mmHg (80-95) H 10/05/22 06:46 POC HCO3 29 lionel/L (19-24) H 10/05/22 06:46 POC Total CO2 30 mmol/L (24-31) 10/05/22 06:46 POC Base Excess 5.0 lionel/L (-9-1.8) H 10/05/22 06:46 ABG pH 7.41 (7.35-7.45) 10/04/22 23:03 ABG pH (Temp Correct) 7.453 (7.35-7.45) H 10/05/22 06:46 ABG pCO2 49 mmHg (35-46) H 10/04/22 23:03 ABG pCO2 (Temp Corrct 41 mmHg (35-46) 10/05/22 06:46 ABG pO2 66 mmHg (80-95) L 10/04/22 23:03 POC ABG pO2 at Pt Temp 102 10/05/22 06:46 ABG HCO3 31 mmol/L (19-24) H 10/04/22 23:03 POC ABG O2 Sat 98.0 % (90-95) H 10/05/22 06:46 ABG O2 Saturation 94.5 % (90-95) 10/04/22 23:03 ABG Base Excess 5.3 mEq/L (-9-1.8) H 10/04/22 23:03 [place] Test Pass 10/05/22 06:46 Oxygen Given 9.5 10/04/22 23:03 O2 Delivery Device Ventilator 10/05/22 06:46 POC O2 Rate 22 10/05/22 06:46 POC FiO2 50 % 10/05/22 06:46 Tidal Volume 380 10/05/22 06:46 PEEP 10 10/05/22 06:46 POC Sodium 135 mmol/L (135-144) 10/05/22 06:46 Sodium 138 mmol/L (136-145) 10/07/22 05:03 POC Potassium 5.0 mmol/L (3.3-5.0) 10/05/22 06:46 Potassium 4.4 mmol/L (3.5-5.1) 10/07/22 05:03 Chloride 103 mmol/L (98-107) 10/07/22 05:03 Carbon Dioxide 28 mmol/L (21-32) 10/07/22 05:03 Anion Gap 7 (3-11) 10/07/22 05:03 BUN 25 mg/dl (6-23) H 10/07/22 05:03 Creatinine 3.90 mg/dl (0.6-1.2) H D 10/07/22 05:03 Est Cr Clr Drug Dosing 10.3 ml/min 10/07/22 05:03 Est GFR ( Amer) 12.2 ml/min 10/07/22 05:03 Est GFR (Non-Af Amer) 10.5 ml/min 10/07/22 05:03 BUN/Creatinine Ratio 6.4 (10-20) L 10/07/22 05:03 Glucose 92 mg/dl (70-99(Fasting)) 10/07/22 05:03 POC Glucose 107 mg/dl (70-99) H 10/07/22 11:31 Lactate 3.4 mmol/L (0.4-2.0) H* 10/05/22 06:51 Calcium 9.7 mg/dl (8.6-10.3) 10/07/22 05:03 Phosphorus 3.9 mg/dl (2.5-4.9) 10/07/22 05:03 Magnesium 2.2 mg/dl (1.7-2.4) 10/07/22 05:03 Iron 36 mcg/dl (35-150) 10/06/22 04:32 TIBC 170 mcg/dl (250-450) L 10/06/22 04:32 Unsaturated IBC 134 mcg/dl (155-355) L 10/06/22 04:32 Transferrin % Sat 21 % (15-50) 10/06/22 04:32 Ferritin 1371.8 ng/ml (8-388) H 10/06/22 04:32 Total Bilirubin 0.4 mg/dl (0.2-1.0) 10/04/22 19:07 AST 22 U/L (13-39) 10/04/22 19:07 ALT 12 U/L (7-52) 10/04/22 19:07 Alkaline Phosphatase 146 U/L (34-104) H 10/04/22 19:07 Troponin I High Sens 23.0 pg/ml (0-14) H 10/05/22 06:51 B-Natriuretic Peptide 2528 pg/ml (0-100) H 10/05/22 06:51 Total Protein 7.2 gm/dl (6.0-8.3) 10/04/22 19:07 Albumin 3.7 gm/dl (3.4-5.0) 10/04/22 19:07 Globulin 3.5 gm/dl (2.5-4.0) 10/04/22 19:07 Albumin/Globulin Ratio 1.1 (0.9-2) 10/04/22 19:07 Procalcitonin 2.73 ng/ml (0-0.5) H 10/06/22 04:32 Nasal Screen MRSA (PCR) Negative (Negative) 10/05/22 22:30 SARS-CoV-2, RNA, NAAT NEGATIVE (NEGATIVE) 10/04/22 20:32 Blood Type O Positive 10/04/22 23:03 Antibody Screen NEGATIVE 10/04/22 23:03 Crossmatch See Detail 10/04/22 23:[address] 10/05/22 06:26 CT chest diagnostic wo con CT DOSE: 681.58 mGy.cm HISTORY: Hypoxia, resp distress TECHNIQUE: Multiaxial CT images of the chest were performed without contrast. A dose lowering technique was utilized adhering to the principles of ALARA. COMPARISON: Chest CTA 01/26/2022. FINDINGS: A multinodular right thyroid goiter again noted. The endotracheal tube terminates approximately 2 cm from the lashae. The nasogastric tube terminates within the stomach just beyond the diaphragmatic hiatus this could be advanced by 5 cm as the fenestrated line is located at the distal esophagus. There is a moderate hiatus hernia, unchanged. Limited views of the upper abdomen demonstrate a normal liver, spleen, adrenal glands. Partially visualized left renal hyper and hypodense lesion. These favor cysts. The heart remains enlarged. There are small bilateral pleural effusions, right greater than left. Mediastinal lymphadenopathy persists. Normal caliber thoracic aorta. Moderate to severe coronary artery calcifications again noted. No pericardial effusion. No acute fractures identified. No pneumothorax. Partial opacities of the right lower lobe bronchi. Interlobular septal thickening consistent with pulmonary edema. There are additional patchy groundglass airspace opacities seen throughout the lungs. Consolidation within the bilateral lower lobes and right upper lobe posteriorly. IMPRESSION: 1. Endotracheal tube terminates 2 cm from the lashae. Nasogastric tube terminates in the proximal stomach. This could be advanced by approximately 5 cm as the fenestrated line is located within the distal esophagus. 2. Cardiomegaly with pulmonary edema and small bilateral pleural effusions. 3. Multifocal patchy groundglass airspace opacities, right greater than left. This could represent alveolar pulmonary edema or a superimposed pneumonia. 4. Consolidation within the bilateral lower lobes and right upper lobe posteriorly may represent a combination of atelectasis and pneumonia. 5. Mediastinal lymphadenopathy, unchanged. ACT 112: Negative or not required by law. Electronically signed by: Guilherme Rome M.D. 10/05/2022 7:[address] 10/05/22 06:26 CT head/brain wo con CLINICAL HISTORY: AMS Technique: Contiguous axial CT images of the head were acquired from the base of the skull to the vertex without intravenous contrast administration. Images were viewed in brain, subdural and bone windows. Automated dose lowering techniques and/or adjustment according to patient size were utilized for this exam. Comparison: None available at the time of this dictation. Findings: The ventricles, basal cisterns, and cerebral sulci are normal. There is no acute intracranial hemorrhage or evidence of acute territorial infarction. Neither mass effect, shift of the midline structures, nor abnormal extra-axial fluid collections are shown. Imaged portions of the paranasal sinuses and mastoid air cells are clear. The orbits appear normal. There are no acute fractures of the calvaria or scalp swelling. Impression: No acute intracranial hemorrhage, no evidence of acute territorial infarction or other acute intracranial disease process. ACT 112: Negative or not required by law. Electronically signed by: Maxx Jacobson M.D. 10/05/2022 7:38 AM Chest X-Ray 10/06/22 06:00 XR chest 1V portable HISTORY: 76 years-old Female CHF acute shortness of breath COMPARISON: Chest CT 10/05/2022 TECHNIQUE: AP view of the chest FINDINGS: Cardiac silhouette is enlarged. Interval extubation. Mild right hemidiaphragmatic elevation. Small pleural effusions mildly improved pulmonary edema. Hiatal hernia. Degenerative changes of the shoulders and spine. IMPRESSION: 1. Cardiomegaly with mildly improved pulmonary edema. 2. Small pleural effusions. 3. Hiatal hernia. 4. Interval extubation with removal of the enteric tube. ACT 112: Negative or not required by law. The above report was generated using voice recognition software. It may contain grammatical, syntax or spelling errors. Electronically signed by: Zan Acevedo M.D. 10/06/2022 7:21 AM
[2022-10-07] MEDS: ATORVASTATIN 40 MG TAB PO SCH (21:19)
[2022-10-08] MEDS: PANTOprazole 40 MG TAB PO SCH (05:48)
[2022-10-08] MEDS: HEPARIN SOD 5,000 UNIT/0.5 ML VIAL SQ SCH ×3 (05:48→21:52)
[2022-10-08 08:00] LABS: Hematocrit (blood only) 29.7 % (37.0-47.0); Mean Corpuscular Hemoglobin 26.7 pg (25.0-34.0); Mean Corpuscular Hgb Conc 30.3 g/dL (32.0-36.0); Mean Corpuscular Volume 88.1 fL (80.0-100.0); Mean Platelet Volume 9.1 fL (9.4-12.4); Nucleated RBC # (auto) 0.03 K/uL (0-0.12); Nucleated RBC % (auto) 0.5 %; Platelet Count 243 K/uL (130-400); RDW Coefficient of Variation 16.7 % (11.5-14.5); RDW Standard Deviation 52.5 fL (36.4-46.3); Red Blood Count 3.37 M/uL (4.20-5.40); White Blood Count 5.59 K/ul (4.8-10.8)
[2022-10-08 08:14] LABS: Calcium 9.8 mg/dl (8.6-10.3); Creatinine Clr Calc Pharmacy 6.8 ml/min; Est GFR (African American) 7.4 ml/min; Est GFR (Non-African American) 6.4 ml/min; Potassium 4.7 mmol/L (3.5-5.1)
--- NOTE | 2022-10-08 08:25 | Nephrology Progress Note ---
Date of Service October 08, 2022 Assessment & Plan (1) End-stage renal disease on hemodialysis: Plan: * Outpatient HD Rx: [facility] MWF 3.25 hr, F-180NR, Qb 350/Qd 600, 2K 2Ca, Na137, HCO3 36, EDW 67.5kg, heparin 1500 unit loading dose, L BC AVF * Dialysis last provided 10/06 for 2L UF. EDW now down to 65 kg * Patient is clinically euvolemic this morning, breathing comfortably flat in bed on nocturnal CPAP * No acute indication for HD today. Recommend wean O2 to off, continue physical therapy/ambulation. Will plan next HD for 10/09/22 as inpatient or at [facility]. Patient's family expressed interest in PT evaluation and possible transfer to [facility] following hospitalization * POC discussed w/ the hospitalist team and patient's daughter Jenny (telephone) (2) Anemia: Plan: * Hgb remains stable at 9.0 this morning. Hold further transfusion at this time * Will provide FAZAL w/ HD tomorrow * Iron saturation 21% w/ Ferritin 1371. Ferritin > 1200 precludes further IV iron therapy at this time (3) Acute and chronic respiratory failure with hypoxia: Plan: * Clinically improved. [facility] HD unit contacted yesterday. EDW reduced to 65 kg (4) Sleep apnea: Plan: * On nocturnal CPAP at home Admission and Anticipated Discharge Date Admission Date: October 04, 2022 Subjective Ms. Ward was evaluated in her hospital room this morning. She was breathing comfortably on her nocturnal CPAP. She voiced no new medical concerns. Review of Systems Constitutional: no fever Eyes: no problem reported Ear, Nose, Mouth, Throat: no problem reported Respiratory: no cough and no dyspnea Cardiovascular: no chest pain Gastrointestinal: no abdominal pain, no nausea, no vomiting and no diarrhea/loose stools Physical Exam Eyes: PERRL, conjunctivae normal, anicteric sclerae ENMT: external ear and nose normal, oropharynx normal Neck: trachea midline, no thyromegaly Respiratory: normal respiratory effort, lungs clear to auscultation Cardiovascular: Rate/Rhythm: regular rate and regular rhythm Extremities: + AV fistula (+ bruit); no edema Gastrointestinal (Abdomen): normal bowel sounds, soft, nontender, no hepatosplenomegaly Skin: no rashes Results & Data Vital Signs (Past 12 Hours) Vital Signs Temp Pulse Pulse Resp BP Pulse Ox O2 Del Method 10/08/22 07:23 37.0 C 60 20 157/77 H 97 Room Air 10/08/22 08:00 57 L 10/08/22 02:59 36.7 C 61 16 160/71 H 100 BiPAP 10/07/22 23:07 36.9 C 66 16 163/67 H 99 CPAP 10/07/22 23:03 70 10/07/22 21:00 Nasal Cannula O2 Flow Rate 10/08/22 07:23 10/08/22 08:00 10/08/22 02:59 10/07/22 23:07 10/07/22 23:03 10/07/22 21:00 2 Laboratory Results Laboratory Tests 10/08/22 10/08/22 06:38 06:38 WBC 5.59 Hgb 9.0 L Hct 29.7 L Plt Count 243 Sodium 139 Potassium 4.7 Chloride 104 Carbon Dioxide 27 BUN 41 H Creatinine 5.89 H* D Glucose 106 H PG Care Time/CCT Total # of Minutes Spent Total Time Spent with Patient: Total time spent is greater than 50% in coordination of care (as documented) at patient's floor/unit and/or counseling patient: Coding Level of Care Code 41969 SUB INP/OBS CARE 3/50MIN Diagnoses End-stage renal disease on hemodialysis N18.6; Z99.2 Anemia D64.9 Anemia type: unspecified type Acute and chronic respiratory failure with hypoxia J96.21 Sleep apnea G47.30 (2) Anemia Anemia type: unspecified type Qualified Code(s): D64.9 - Anemia, unspecified
[2022-10-08] MEDS: UMECLIDINIUM/VILANTEROL 62.5/25MCG 7 PUFFS/INHALER INH SCH (08:52)
[2022-10-08] MEDS: FAMOTIDINE 20 MG TAB PO SCH (08:53)
[2022-10-08] MEDS: ASPIRIN 81 MG ECTAB PO SCH (08:53)
[2022-10-08] MEDS: FLUTICASONE FUROATE 100MCG 14 PUFFS/INHALER INH SCH (08:53)
[2022-10-08] MEDS: METOPROLOL SUCC 25MG EXT REL TAB PO SCH ×2 (08:53→21:52)
[2022-10-08] MEDS: ISOSORBIDE MONO EXTENDED REL 30 MG TABCR PO SCH (08:53)
[2022-10-08] MEDS: SEVELAMER HCL 800 MG TABLET PO SCH ×3 (08:53→16:17)
[2022-10-08] MEDS: NEPHROCAPS PO SCH (08:54)
[2022-10-08] MEDS: ACETAMINOPHEN 500 MG TAB PO PRN ×2 (08:57→16:16)
[2022-10-08] MEDS: amLODIPine BESYLATE 5 MG TAB PO SCH (09:36)
[2022-10-08] MEDS ORDERED: traMADol HCL 50 MG TABLET PO STA ×2 (12:13→16:26)
--- NOTE | 2022-10-08 12:20 | Hospitalist Progress Note ---
Date of Service October 08, 2022 Assessment & Plan (1) Acute hypoxemic respiratory failure: Plan: Patient is a 76-year-old female with past medical history of ESRD on hemodialysis, chronic anemia, sleep apnea presented to the ED with shortness of breath. She was needed to be emergently intubated following CODE BLUE and was transferred to ICU. She was extubated successfully on 10/05. She underwent dialysis on 10/05 for 3 L ultrafiltrate with 1 packed RBC. Also, underwent dialysis on 10/06 with 2 L ultrafiltrate. Acute hypoxic respiratory failure Secondary to volume overload End-stage renal disease H/O diastolic dysfunction Troponin elevation likely demand ischemia secondary to volume overload, in setting of end-stage renal disease Lactic Acidosis Chronic respiratory failure--on 2 L supplemental oxygen intermittently Pulm HTN --CT Chest Endotracheal tube terminates 2 cm from the lashae. Nasogastric tube terminates in the proximal stomach. This could be advanced by approximately 5 cm as the fenestrated line is located within the distal esophagus. Cardiomegaly with pulmonary edema and small bilateral pleural effusions. Multifocal patchy groundglass airspace opacities, right greater than left. This could represent alveolar pulmonary edema or a superimposed pneumonia. Consolidation within the bilateral lower lobes and right upper lobe posteriorly may represent a combination of atelectasis and pneumonia. Mediastinal lymphadenopathy, u nchanged. --CT Head:No acute intracranial hemorrhage, no evidence of acute territorial infarction or other acute intracranial disease process. -- Extubated on 10/05/2022 Volume status being managed through dialysis underwent dialysis on 10/05 for 3 L ultrafiltrate with 1 packed RBC. Also, underwent dialysis on 10/06 with 2 L ultrafiltrate. PT OT recommended rehab; transferred to [facility] when bed is available. Acute on Chronic Anemia S/P 1 unit PRBCs Monitor CBC Received Epogen on 10/05/2022 Hemoglobin is stable Valvular heart disease Mild AR/MR/TR HTN continue home meds LAUREN on CPAP HTN HLP Continue home meds Bronchial Asthma Not in acute exacerbation DM II Continue Insulin per protocol Monitor BGs DVT Px Heparin SQ Code Status Full code Please note the above document was generated using voice recognition software. It may contain grammatical, syntax or spelling errors. Any formal questions or concerns about the content, text or information contained within the body of this dictation should be directly addressed to the provider for clarification Admission and Anticipated Discharge Date Admission Date: October 04, 2022 Subjective Patient seen and examined at bedside. Reports pain on right knee. Supplemental oxygen weaned off. Saturating well on room air. Review of Systems Review of Systems: All systems reviewed & are unremarkable except as noted in Subjective Physical Exam Physical Exam: Physical Exam: Vitals signs as noted above General Appearance:Moderately built and nourished, no apparent distress Head: normocephalic, Atraumatic Eyes: normal inspection, EOMI Neck: supple, Trachea midline Respiratory/Chest: Bilateral clear vesicular breath sound. Cardiovascular: S1, S2, No murmur Abdomen/GI:Soft, Non tender, Bowel sounds present Extremities/Musculoskeletal:normal inspection, Trace pedal edema. Right knee swelling present, slightly tender in medial aspect. No overlying erythema. Neurologic/Psych:Alert, awake, oriented, grossly no focal deficits Skin: normal color, warm Results & Data Results & Data Vital Signs (Past 12 Hours) Vital Signs Temp Pulse Pulse Resp BP Pulse Ox O2 Del Method 10/08/22 08:49 CPAP 10/08/22 07:23 37.0 C 60 20 157/77 H 97 Room Air 10/08/22 08:00 57 L 10/08/22 02:59 36.7 C 61 16 160/71 H 100 BiPAP O2 Flow Rate 10/08/22 08:49 2 10/08/22 07:23 10/08/22 08:00 10/08/22 02:59 Laboratory Results Laboratory Results WBC 5.59 K/ul (4.8-10.8) 10/08/22 06:38 RBC 3.37 M/uL (4.20-5.40) L 10/08/22 06:38 Hgb 9.0 g/dl (12.0-16.0) L 10/08/22 06:38 POC Hgb 8.8 g/dl (12.0-16.0) L 10/05/22 06:46 Hct 29.7 % (37.0-47.0) L 10/08/22 06:38 POC Hct 26 % (37-47) L 10/05/22 06:46 MCV 88.1 fL (80.0-100.0) 10/08/22 06:38 MCH 26.7 pg (25.0-34.0) 10/08/22 06:38 MCHC 30.3 g/dL (32.0-36.0) L 10/08/22 06:38 RDW Std Deviation 52.5 fL (36.4-46.3) H 10/08/22 06:38 RDW Coeff of Luis 16.7 % (11.5-14.5) H 10/08/22 06:38 Plt Count 243 K/uL (130-400) 10/08/22 06:38 MPV 9.1 fL (9.4-12.4) L 10/08/22 06:38 Immature Gran % (Auto) 0.3 % 10/05/22 03:50 Neut % (Auto) 75.9 % 10/05/22 03:50 Lymph % (Auto) 11.9 % 10/05/22 03:50 Bland % (Auto) 7.6 % 10/05/22 03:50 Eos % (Auto) 3.8 % 10/05/22 03:50 Baso % (Auto) 0.5 % 10/05/22 03:50 Neut # (Auto) 5.92 K/uL (1.40-6.50) 10/05/22 03:50 Lymph # (Auto) 0.93 K/uL (1.2-3.4) L 10/05/22 03:50 Bland # (Auto) 0.59 K/uL (0.11-0.59) 10/05/22 03:50 Eos # (Auto) 0.30 K/uL (0-0.50) 10/05/22 03:50 Baso # (Auto) 0.04 K/uL (0-0.2) 10/05/22 03:50 Immature Gran # (Auto) 0.02 K/uL (0.01-0.20) 10/05/22 03:50 Absolute Nucleated RBC 0.03 K/uL (0-0.12) 10/08/22 06:38 Nucleated RBC % (auto) 0.5 % 10/08/22 06:38 Polychromasia 1+ 10/05/22 03:50 PT 11.0 Seconds (9.0-12.0) 10/04/22 19:07 INR 1.0 (0.9-1.1) 10/04/22 19:07 APTT 30.5 Seconds (21.0-31.0) 10/05/22 03:50 PTT Ratio 1.1 10/05/22 03:50 Sample Site R Radial 10/05/22 06:46 POC pH 7.44 (7.35-7.45) 10/05/22 06:46 POC pCO2 42 mmHg (35-46) 10/05/22 06:46 POC pO2 106 mmHg (80-95) H 10/05/22 06:46 POC HCO3 29 lionel/L (19-24) H 10/05/22 06:46 POC Total CO2 30 mmol/L (24-31) 10/05/22 06:46 POC Base Excess 5.0 lionel/L (-9-1.8) H 10/05/22 06:46 ABG pH 7.41 (7.35-7.45) 10/04/22 23:03 ABG pH (Temp Correct) 7.453 (7.35-7.45) H 10/05/22 06:46 ABG pCO2 49 mmHg (35-46) H 10/04/22 23:03 ABG pCO2 (Temp Corrct 41 mmHg (35-46) 10/05/22 06:46 ABG pO2 66 mmHg (80-95) L 10/04/22 23:03 POC ABG pO2 at Pt Temp 102 10/05/22 06:46 ABG HCO3 31 mmol/L (19-24) H 10/04/22 23:03 POC ABG O2 Sat 98.0 % (90-95) H 10/05/22 06:46 ABG O2 Saturation 94.5 % (90-95) 10/04/22 23:03 ABG Base Excess 5.3 mEq/L (-9-1.8) H 10/04/22 23:03 Iglesia Test Pass 10/05/22 06:46 Oxygen Given 9.5 10/04/22 23:03 O2 Delivery Device Ventilator 10/05/22 06:46 POC O2 Rate 22 10/05/22 06:46 POC FiO2 50 % 10/05/22 06:46 Tidal Volume 380 10/05/22 06:46 PEEP 10 10/05/22 06:46 POC Sodium 135 mmol/L (135-144) 10/05/22 06:46 Sodium 139 mmol/L (136-145) 10/08/22 06:38 POC Potassium 5.0 mmol/L (3.3-5.0) 10/05/22 06:46 Potassium 4.7 mmol/L (3.5-5.1) 10/08/22 06:38 Chloride 104 mmol/L (98-107) 10/08/22 06:38 Carbon Dioxide 27 mmol/L (21-32) 10/08/22 06:38 Anion Gap 8 (3-11) 10/08/22 06:38 BUN 41 mg/dl (6-23) H 10/08/22 06:38 Creatinine 5.89 mg/dl (0.6-1.2) H* D 10/08/22 06:38 Est Cr Clr Drug Dosing 6.8 ml/min 10/08/22 06:38 Est GFR ( Amer) 7.4 ml/min 10/08/22 06:38 Est GFR (Non-Af Amer) 6.4 ml/min 10/08/22 06:38 BUN/Creatinine Ratio 7.0 (10-20) L 10/08/22 06:38 Glucose 106 mg/dl (70-99(Fasting)) H 10/08/22 06:38 POC Glucose 107 mg/dl (70-99) H 10/07/22 11:31 Lactate 3.4 mmol/L (0.4-2.0) H* 10/05/22 06:51 Calcium 9.8 mg/dl (8.6-10.3) 10/08/22 06:38 Phosphorus 3.9 mg/dl (2.5-4.9) 10/07/22 05:03 Magnesium 2.2 mg/dl (1.7-2.4) 10/07/22 05:03 Iron 36 mcg/dl (35-150) 10/06/22 04:32 TIBC 170 mcg/dl (250-450) L 10/06/22 04:32 Unsaturated IBC 134 mcg/dl (155-355) L 10/06/22 04:32 Transferrin % Sat 21 % (15-50) 10/06/22 04:32 Ferritin 1371.8 ng/ml (8-388) H 10/06/22 04:32 Total Bilirubin 0.4 mg/dl (0.2-1.0) 10/04/22 19:07 AST 22 U/L (13-39) 10/04/22 19:07 ALT 12 U/L (7-52) 10/04/22 19:07 Alkaline Phosphatase 146 U/L (34-104) H 10/04/22 19:07 Troponin I High Sens 23.0 pg/ml (0-14) H 10/05/22 06:51 B-Natriuretic Peptide 2528 pg/ml (0-100) H 10/05/22 06:51 Total Protein 7.2 gm/dl (6.0-8.3) 10/04/22 19:07 Albumin 3.7 gm/dl (3.4-5.0) 10/04/22 19:07 Globulin 3.5 gm/dl (2.5-4.0) 10/04/22 19:07 Albumin/Globulin Ratio 1.1 (0.9-2) 10/04/22 19:07 Procalcitonin 2.73 ng/ml (0-0.5) H 10/06/22 04:32 Nasal Screen MRSA (PCR) Negative (Negative) 10/05/22 22:30 SARS-CoV-2, RNA, NAAT NEGATIVE (NEGATIVE) 10/04/22 20:32 Blood Type O Positive 10/04/22 23:03 Antibody Screen NEGATIVE 10/04/22 23:03 Crossmatch See Detail 10/04/22 23:[address] 10/05/22 06:26 CT chest diagnostic wo con CT DOSE: 681.58 mGy.cm HISTORY: Hypoxia, resp distress TECHNIQUE: Multiaxial CT images of the chest were performed without contrast. A dose lowering technique was utilized adhering to the principles of ALARA. COMPARISON: Chest CTA 01/26/2022. FINDINGS: A multinodular right thyroid goiter again noted. The endotracheal tube terminates approximately 2 cm from the lashae. The nasogastric tube terminates within the stomach just beyond the diaphragmatic hiatus this could be advanced by 5 cm as the fenestrated line is located at the distal esophagus. There is a moderate hiatus hernia, unchanged. Limited views of the upper abdomen demonstrate a normal liver, spleen, adrenal glands. Partially visualized left renal hyper and hypodense lesion. These favor cysts. The heart remains enlarged. There are small bilateral pleural effusions, right greater than left. Mediastinal lymphadenopathy persists. Normal caliber thoracic aorta. Moderate to severe coronary artery calcifications again noted. No pericardial effusion. No acute fractures identified. No pneumothorax. Partial opacities of the right lower lobe bronchi. Interlobular septal thickening consistent with pulmonary edema. There are additional patchy groundglass airspace opacities seen throughout the lungs. Consolidation within the bilateral lower lobes and right upper lobe posteriorly. IMPRESSION: 1. Endotracheal tube terminates 2 cm from the lashae. Nasogastric tube terminates in the proximal stomach. This could be advanced by approximately 5 cm as the fenestrated line is located within the distal esophagus. 2. Cardiomegaly with pulmonary edema and small bilateral pleural effusions. 3. Multifocal patchy groundglass airspace opacities, right greater than left. This could represent alveolar pulmonary edema or a superimposed pneumonia. 4. Consolidation within the bilateral lower lobes and right upper lobe posteriorly may represent a combination of atelectasis and pneumonia. 5. Mediastinal lymphadenopathy, unchanged. ACT 112: Negative or not required by law. Electronically signed by: Guilherme Rome M.D. 10/05/2022 7:[address] 10/05/22 06:26 CT head/brain wo con CLINICAL HISTORY: AMS Technique: Contiguous axial CT images of the head were acquired from the base of the skull to the vertex without intravenous contrast administration. Images were viewed in brain, subdural and bone windows. Automated dose lowering techniques and/or adjustment according to patient size were utilized for this exam. Comparison: None available at the time of this dictation. Findings: The ventricles, basal cisterns, and cerebral sulci are normal. There is no acute intracranial hemorrhage or evidence of acute territorial infarction. Neither mass effect, shift of the midline structures, nor abnormal extra-axial fluid collections are shown. Imaged portions of the paranasal sinuses and mastoid air cells are clear. The orbits appear normal. There are no acute fractures of the calvaria or scalp swelling. Impression: No acute intracranial hemorrhage, no evidence of acute territorial infarction or other acute intracranial disease process. ACT 112: Negative or not required by law. Electronically signed by: Maxx Jacobson M.D. 10/05/2022 7:38 AM Chest X-Ray 10/06/22 06:00 XR chest 1V portable HISTORY: 76 years-old Female CHF acute shortness of breath COMPARISON: Chest CT 10/05/2022 TECHNIQUE: AP view of the chest FINDINGS: Cardiac silhouette is enlarged. Interval extubation. Mild right hemidiaphragmatic elevation. Small pleural effusions mildly improved pulmonary edema. Hiatal hernia. Degenerative changes of the shoulders and spine. IMPRESSION: 1. Cardiomegaly with mildly improved pulmonary edema. 2. Small pleural effusions. 3. Hiatal hernia. 4. Interval extubation with removal of the enteric tube. ACT 112: Negative or not required by law. The above report was generated using voice recognition software. It may contain grammatical, syntax or spelling errors. Electronically signed by: Zan Acevedo M.D. 10/06/2022 7:21 AM
[2022-10-08] MEDS: ONDANSETRON INJ 2 MG/ML 2 ML VIAL IV PRN (18:06)
[2022-10-08] MEDS ORDERED: PROMETHAZINE HCL 12.5 MG in SODIUM CHLORIDE 0.9% 50 ML IV PRN (20:11)
[2022-10-08] MEDS ORDERED: CALCIUM CARBONATE 500 MG CHEWABLE TAB PO PRN (20:21)
[2022-10-08] MEDS: FAMOTIDINE 20 MG in SYRINGE 3 ML IV SCH (21:20)
[2022-10-08] MEDS: ATORVASTATIN 40 MG TAB PO SCH (21:52)
[2022-10-09] MEDS: HEPARIN SOD 5,000 UNIT/0.5 ML VIAL SQ SCH ×3 (05:49→22:42)
[2022-10-09] MEDS ORDERED: Nursing to Pharmacy Communication SCH (06:00)
[2022-10-09 06:49] LABS: Hematocrit (blood only) 30.2 % (37.0-47.0); Hemoglobin 9.1 g/dl (12.0-16.0); Mean Corpuscular Hgb Conc 30.1 g/dL (32.0-36.0); Mean Corpuscular Volume 89.6 fL (80.0-100.0); Mean Platelet Volume 8.8 fL (9.4-12.4); Platelet Count 232 K/uL (130-400); RDW Coefficient of Variation 16.9 % (11.5-14.5); Red Blood Count 3.37 M/uL (4.20-5.40); White Blood Count 5.12 K/ul (4.8-10.8)
[2022-10-09] MEDS ORDERED: HEPARIN SOD (PORCINE) 1000 UNIT/ML IV ONE (07:00)
[2022-10-09] MEDS ORDERED: EPOETIN ALFA 10,000 UNITS/ML VIAL IV ONE (07:00)
[2022-10-09] MEDS ORDERED: HEPARIN SOD (PORCINE) 1000 UNIT/ML IV SCH (07:00)
[2022-10-09] MEDS ORDERED: SODIUM CHLORIDE 0.9% 1000ML 1,000 ML IV PRN (07:00)
[2022-10-09] MEDS: PANTOprazole 40 MG TAB PO SCH (07:46)
[2022-10-09] MEDS: ASPIRIN 81 MG ECTAB PO SCH (07:46)
[2022-10-09] MEDS: NEPHROCAPS PO SCH (07:47)
[2022-10-09] MEDS: ACETAMINOPHEN 325 MG TAB PO SCH ×4 (07:47→23:47)
[2022-10-09] MEDS: SEVELAMER HCL 800 MG TABLET PO SCH ×3 (07:48→17:26)
[2022-10-09] MEDS: FLUTICASONE FUROATE 100MCG 14 PUFFS/INHALER INH SCH (07:51)
[2022-10-09] MEDS: UMECLIDINIUM/VILANTEROL 62.5/25MCG 7 PUFFS/INHALER INH SCH (07:52)
[2022-10-09 07:53] LABS: Calcium 9.8 mg/dl (8.6-10.3); Creatinine Clr Calc Pharmacy 5.4 ml/min; Est GFR (African American) 5.6 ml/min; Est GFR (Non-African American) 4.8 ml/min; Potassium 5.1 mmol/L (3.5-5.1)
[2022-10-09] MEDS: FAMOTIDINE 20 MG in SYRINGE 3 ML IV SCH ×2 (08:00→20:13)
--- NOTE | 2022-10-09 08:59 | Nephrology Progress Note ---
Date of Service October 09, 2022 Assessment & Plan (1) End-stage renal disease on hemodialysis: Plan: * Outpatient HD Rx: [facility] MWF 3.25 hr, F-180NR, Qb 350/Qd 600, 2K 2Ca, Na137, HCO3 36, EDW 67.5kg, heparin 1500 unit loading dose, L BC AVF * Will provide HD today. EDW now down to 64 kg. Orders have been placed in EMR and HD RN notified * [facility] notified to lower EDW to 64 kg * POC discussed w/ the hospitalist team and patient's daughter Jenny (john ramirez). Awaiting transfer to [facility] (2) Anemia: Plan: * Hgb remains stable at 9.1 this morning. Hold further transfusion at this time * Will provide FAZAL w/ HD today * Iron saturation 21% w/ Ferritin 1371. Ferritin > 1200 precludes further IV iron therapy at this time (3) Acute and chronic respiratory failure with hypoxia: Plan: * Clinically resolved (4) Sleep apnea: Plan: * On nocturnal CPAP at home Admission and Anticipated Discharge Date Admission Date: October 04, 2022 Subjective Ms. Ward was evaluated in her hospital room this morning. She reports an episode of emesis yesterday but was able to ambulate in her room yesterday and brush her teeth. She currently denies dyspnea. Review of Systems Constitutional: no fever Eyes: no problem reported Ear, Nose, Mouth, Throat: no problem reported Respiratory: no cough and no dyspnea Cardiovascular: no chest pain Gastrointestinal: no abdominal pain, no nausea, no vomiting and no diarrhea/loose stools Physical Exam Eyes: PERRL, conjunctivae normal, anicteric sclerae ENMT: external ear and nose normal, oropharynx normal Neck: trachea midline, no thyromegaly Respiratory: normal respiratory effort, lungs clear to auscultation Cardiovascular: Rate/Rhythm: regular rate and regular rhythm Extremities: + AV fistula (+ bruit); no edema Gastrointestinal (Abdomen): normal bowel sounds, soft, nontender, no hepatosplenomegaly Skin: no rashes Results & Data Vital Signs (Past 12 Hours) Vital Signs Temp Pulse Pulse Resp BP Pulse Ox O2 Del Method 10/09/22 08:00 66 10/09/22 07:00 36.4 C L 66 16 185/72 H 95 Room Air 10/09/22 00:00 71 10/09/22 03:53 36.5 C 66 16 107/76 99 CPAP 10/08/22 23:59 36.5 C 66 16 156/67 H 98 CPAP 10/08/22 22:00 Room Air Laboratory Results Laboratory Tests 10/09/22 10/09/22 06:07 06:07 WBC 5.12 Hgb 9.1 L Hct 30.2 L Plt Count 232 Sodium 138 Potassium 5.1 Chloride 104 Carbon Dioxide 24 BUN 52 H Creatinine 7.42 H* D Glucose 79 Calcium 9.8 PG Care Time/CCT Total # of Minutes Spent Total Time Spent with Patient: Total time spent is greater than 50% in coordination of care (as documented) at patient's floor/unit and/or counseling patient: Coding Level of Care Code 35606 SUB INP/OBS CARE 3/50MIN Diagnoses End-stage renal disease on hemodialysis N18.6; Z99.2 Anemia D64.9 Anemia type: unspecified type Acute and chronic respiratory failure with hypoxia J96.21 Sleep apnea G47.30 (2) Anemia Anemia type: unspecified type Qualified Code(s): D64.9 - Anemia, unspecified
[2022-10-09] MEDS: METOPROLOL SUCC 25MG EXT REL TAB PO SCH ×2 (10:09→20:10)
[2022-10-09] MEDS ORDERED: traMADol HCL 50 MG TABLET PO PRN (11:52)
--- NOTE | 2022-10-09 11:53 | Hospitalist Progress Note ---
Date of Service October 09, 2022 Assessment & Plan (1) Acute hypoxemic respiratory failure: Plan: Patient is a 76-year-old female with past medical history of ESRD on hemodialysis, chronic anemia, sleep apnea presented to the ED with shortness of breath. She was needed to be emergently intubated following CODE BLUE and was transferred to ICU. She was extubated successfully on 10/05. She underwent dialysis on 10/05 for 3 L ultrafiltrate with 1 packed RBC. Also, underwent dialysis on 10/06 with 2 L ultrafiltrate. Acute hypoxic respiratory failure Secondary to volume overload End-stage renal disease H/O diastolic dysfunction Troponin elevation likely demand ischemia secondary to volume overload, in setting of end-stage renal disease Lactic Acidosis Chronic respiratory failure--on 2 L supplemental oxygen intermittently Pulm HTN --CT Chest Endotracheal tube terminates 2 cm from the lashae. Nasogastric tube terminates in the proximal stomach. This could be advanced by approximately 5 cm as the fenestrated line is located within the distal esophagus. Cardiomegaly with pulmonary edema and small bilateral pleural effusions. Multifocal patchy groundglass airspace opacities, right greater than left. This could represent alveolar pulmonary edema or a superimposed pneumonia. Consolidation within the bilateral lower lobes and right upper lobe posteriorly may represent a combination of atelectasis and pneumonia. Mediastinal lymphadenopathy, u nchanged. --CT Head:No acute intracranial hemorrhage, no evidence of acute territorial infarction or other acute intracranial disease process. -- Extubated on 10/05/2022 Volume status being managed through dialysis underwent dialysis on 10/05 for 3 L ultrafiltrate with 1 packed RBC. Also, underwent dialysis on 10/06 with 2 L ultrafiltrate. Currently undergoing dialysis as per schedule on Wednesday and Wednesday. PT OT recommended rehab; transferred to [facility] when bed is available. Will need two-step oxygen evaluation at discharge. 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 Discharge when bed is available. Please note the above document was generated using voice recognition software. It may contain grammatical, syntax or spelling errors. Any formal questions or concerns about the content, text or information contained within the body of this dictation should be directly addressed to the provider for clarification Admission and Anticipated Discharge Date Admission Date: October 04, 2022 Subjective Patient seen in the dialysis unit. She is undergoing dialysis without any difficulty. Reports multiple episode of vomiting last night. However, was able to tolerate her breakfast. Review of Systems Review of Systems: All systems reviewed & are unremarkable except as noted in Subjective Physical Exam Physical Exam: Physical Exam: Vitals signs as noted above General Appearance:Moderately built and nourished, no apparent distress Head: normocephalic, Atraumatic Eyes: normal inspection, EOMI Neck: supple, Trachea midline Respiratory/Chest: Bilateral clear vesicular breath sound. Cardiovascular: S1, S2, No murmur Abdomen/GI:Soft, Non tender, Bowel sounds present Extremities/Musculoskeletal:normal inspection, Trace pedal edema. Right knee swelling present, slightly tender in medial aspect. No overlying erythema. Neurologic/Psych:Alert, awake, oriented, grossly no focal deficits Skin: normal color, warm Results & Data Results & Data Vital Signs (Past 12 Hours) Vital Signs Temp Pulse Pulse Resp BP Pulse Ox O2 Del Method 10/09/22 11:00 36.8 C 89 20 10/09/22 08:00 66 10/09/22 07:00 36.4 C L 66 16 185/72 H 95 Room Air 10/09/22 00:00 71 10/09/22 03:53 36.5 C 66 16 107/76 99 CPAP 10/08/22 23:59 36.5 C 66 16 156/67 H 98 CPAP Laboratory Results Laboratory Results WBC 5.12 K/ul (4.8-10.8) 10/09/22 06:07 RBC 3.37 M/uL (4.20-5.40) L 10/09/22 06:07 Hgb 9.1 g/dl (12.0-16.0) L 10/09/22 06:07 POC Hgb 8.8 g/dl (12.0-16.0) L 10/05/22 06:46 Hct 30.2 % (37.0-47.0) L 10/09/22 06:07 POC Hct 26 % (37-47) L 10/05/22 06:46 MCV 89.6 fL (80.0-100.0) 10/09/22 06:07 MCH 27.0 pg (25.0-34.0) 10/09/22 06:07 MCHC 30.1 g/dL (32.0-36.0) L 10/09/22 06:07 RDW Std Deviation 54.0 fL (36.4-46.3) H 10/09/22 06:07 RDW Coeff of Luis 16.9 % (11.5-14.5) H 10/09/22 06:07 Plt Count 232 K/uL (130-400) 10/09/22 06:07 MPV 8.8 fL (9.4-12.4) L 10/09/22 06:07 Immature Gran % (Auto) 0.3 % 10/05/22 03:50 Neut % (Auto) 75.9 % 10/05/22 03:50 Lymph % (Auto) 11.9 % 10/05/22 03:50 [place] % (Auto) 7.6 % 10/05/22 03:50 Eos % (Auto) 3.8 % 10/05/22 03:50 Baso % (Auto) 0.5 % 10/05/22 03:50 Neut # (Auto) 5.92 K/uL (1.40-6.50) 10/05/22 03:50 Lymph # (Auto) 0.93 K/uL (1.2-3.4) L 10/05/22 03:50 [place] # (Auto) 0.59 K/uL (0.11-0.59) 10/05/22 03:50 Eos # (Auto) 0.30 K/uL (0-0.50) 10/05/22 03:50 Baso # (Auto) 0.04 K/uL (0-0.2) 10/05/22 03:50 Immature Gran # (Auto) 0.02 K/uL (0.01-0.20) 10/05/22 03:50 Absolute Nucleated RBC 0.03 K/uL (0-0.12) 10/08/22 06:38 Nucleated RBC % (auto) 0.5 % 10/08/22 06:38 Polychromasia 1+ 10/05/22 03:50 PT 11.0 Seconds (9.0-12.0) 10/04/22 19:07 INR 1.0 (0.9-1.1) 10/04/22 19:07 APTT 30.5 Seconds (21.0-31.0) 10/05/22 03:50 PTT Ratio 1.1 10/05/22 03:50 Sample Site R Radial 10/05/22 06:46 POC pH 7.44 (7.35-7.45) 10/05/22 06:46 POC pCO2 42 mmHg (35-46) 10/05/22 06:46 POC pO2 106 mmHg (80-95) H 10/05/22 06:46 POC HCO3 29 lionel/L (19-24) H 10/05/22 06:46 POC Total CO2 30 mmol/L (24-31) 10/05/22 06:46 POC Base Excess 5.0 lionel/L (-9-1.8) H 10/05/22 06:46 ABG pH 7.41 (7.35-7.45) 10/04/22 23:03 ABG pH (Temp Correct) 7.453 (7.35-7.45) H 10/05/22 06:46 ABG pCO2 49 mmHg (35-46) H 10/04/22 23:03 ABG pCO2 (Temp Corrct 41 mmHg (35-46) 10/05/22 06:46 ABG pO2 66 mmHg (80-95) L 10/04/22 23:03 POC ABG pO2 at Pt Temp 102 10/05/22 06:46 ABG HCO3 31 mmol/L (19-24) H 10/04/22 23:03 POC ABG O2 Sat 98.0 % (90-95) H 10/05/22 06:46 ABG O2 Saturation 94.5 % (90-95) 10/04/22 23:03 ABG Base Excess 5.3 mEq/L (-9-1.8) H 10/04/22 23:03 Iglesia Test Pass 10/05/22 06:46 Oxygen Given 9.5 10/04/22 23:03 O2 Delivery Device Ventilator 10/05/22 06:46 POC O2 Rate 22 10/05/22 06:46 POC FiO2 50 % 10/05/22 06:46 Tidal Volume 380 10/05/22 06:46 PEEP 10 10/05/22 06:46 POC Sodium 135 mmol/L (135-144) 10/05/22 06:46 Sodium 138 mmol/L (136-145) 10/09/22 06:07 POC Potassium 5.0 mmol/L (3.3-5.0) 10/05/22 06:46 Potassium 5.1 mmol/L (3.5-5.1) 10/09/22 06:07 Chloride 104 mmol/L (98-107) 10/09/22 06:07 Carbon Dioxide 24 mmol/L (21-32) 10/09/22 06:07 Anion Gap 10 (3-11) 10/09/22 06:07 BUN 52 mg/dl (6-23) H 10/09/22 06:07 Creatinine 7.42 mg/dl (0.6-1.2) H* D 10/09/22 06:07 Est Cr Clr Drug Dosing 5.4 ml/min 10/09/22 06:07 Est GFR ( Amer) 5.6 ml/min 10/09/22 06:07 Est GFR (Non-Af Amer) 4.8 ml/min 10/09/22 06:07 BUN/Creatinine Ratio 7.0 (10-20) L 10/09/22 06:07 Glucose 79 mg/dl (70-99(Fasting)) 10/09/22 06:07 POC Glucose 102 mg/dl (70-99) H 10/09/22 07:32 Lactate 3.4 mmol/L (0.4-2.0) H* 10/05/22 06:51 Calcium 9.8 mg/dl (8.6-10.3) 10/09/22 06:07 Phosphorus 3.9 mg/dl (2.5-4.9) 10/07/22 05:03 Magnesium 2.2 mg/dl (1.7-2.4) 10/07/22 05:03 Iron 36 mcg/dl (35-150) 10/06/22 04:32 TIBC 170 mcg/dl (250-450) L 10/06/22 04:32 Unsaturated IBC 134 mcg/dl (155-355) L 10/06/22 04:32 Transferrin % Sat 21 % (15-50) 10/06/22 04:32 Ferritin 1371.8 ng/ml (8-388) H 10/06/22 04:32 Total Bilirubin 0.4 mg/dl (0.2-1.0) 10/04/22 19:07 AST 22 U/L (13-39) 10/04/22 19:07 ALT 12 U/L (7-52) 10/04/22 19:07 Alkaline Phosphatase 146 U/L (34-104) H 10/04/22 19:07 Troponin I High Sens 23.0 pg/ml (0-14) H 10/05/22 06:51 B-Natriuretic Peptide 2528 pg/ml (0-100) H 10/05/22 06:51 Total Protein 7.2 gm/dl (6.0-8.3) 10/04/22 19:07 Albumin 3.7 gm/dl (3.4-5.0) 10/04/22 19:07 Globulin 3.5 gm/dl (2.5-4.0) 10/04/22 19:07 Albumin/Globulin Ratio 1.1 (0.9-2) 10/04/22 19:07 Procalcitonin 2.73 ng/ml (0-0.5) H 10/06/22 04:32 Nasal Screen MRSA (PCR) Negative (Negative) 10/05/22 22:30 SARS-CoV-2, RNA, NAAT NEGATIVE (NEGATIVE) 10/04/22 20:32 Blood Type O Positive 10/04/22 23:03 Antibody Screen NEGATIVE 10/04/22 23:03 Crossmatch See Detail 10/04/22 23:[address] 10/05/22 06:26 CT chest diagnostic wo con CT DOSE: 681.58 mGy.cm HISTORY: Hypoxia, resp distress TECHNIQUE: Multiaxial CT images of the chest were performed without contrast. A dose lowering technique was utilized adhering to the principles of ALARA. COMPARISON: Chest CTA 01/26/2022. FINDINGS: A multinodular right thyroid goiter again noted. The endotracheal tube terminates approximately 2 cm from the lashae. The nasogastric tube terminates within the stomach just beyond the diaphragmatic hiatus this could be advanced by 5 cm as the fenestrated line is located at the distal esophagus. There is a moderate hiatus hernia, unchanged. Limited views of the upper abdomen demonstrate a normal liver, spleen, adrenal glands. Partially visualized left renal hyper and hypodense lesion. These favor cysts. The heart remains enlarged. There are small bilateral pleural effusions, right greater than left. Mediastinal lymphadenopathy persists. Normal caliber thoracic aorta. Moderate to severe coronary artery calcifications again noted. No pericardial effusion. No acute fractures identified. No pneumothorax. Partial opacities of the right lower lobe bronchi. Interlobular septal thickening consistent with pulmonary edema. There are additional patchy groundglass airspace opacities seen throughout the lungs. Consolidation within the bilateral lower lobes and right upper lobe posteriorly. IMPRESSION: 1. Endotracheal tube terminates 2 cm from the lashae. Nasogastric tube terminates in the proximal stomach. This could be advanced by approximately 5 cm as the fenestrated line is located within the distal esophagus. 2. Cardiomegaly with pulmonary edema and small bilateral pleural effusions. 3. Multifocal patchy groundglass airspace opacities, right greater than left. This could represent alveolar pulmonary edema or a superimposed pneumonia. 4. Consolidation within the bilateral lower lobes and right upper lobe any commodity buyer iorly may represent a combination of atelectasis and pneumonia. 5. Mediastinal lymphadenopathy, unchanged. ACT 112: Negative or not required by law. Electronically signed by: Guilherme Rome M.D. 10/05/2022 7:[address] 10/05/22 06:26 CT head/brain wo con CLINICAL HISTORY: AMS Technique: Contiguous axial CT images of the head were acquired from the base of the skull to the vertex without intravenous contrast administration. Images were viewed in brain, subdural and bone windows. Automated dose lowering techniques and/or adjustment according to patient size were utilized for this exam. Comparison: None available at the time of this dictation. Findings: The ventricles, basal cisterns, and cerebral sulci are normal. There is no acute intracranial hemorrhage or evidence of acute territorial infarction. Neither mass effect, shift of the midline structures, nor abnormal extra-axial fluid collections are shown. Imaged portions of the paranasal sinuses and mastoid air cells are clear. The orbits appear normal. There are no acute fractures of the calvaria or scalp swelling. Impression: No acute intracranial hemorrhage, no evidence of acute territorial infarction or other acute intracranial disease process. ACT 112: Negative or not required by law. Electronically signed by: Maxx Jacobson M.D. 10/05/2022 7:38 AM Chest X-Ray 10/06/22 06:00 XR chest 1V portable HISTORY: 76 years-old Female CHF acute shortness of breath COMPARISON: Chest CT 10/05/2022 TECHNIQUE: AP view of the chest FINDINGS: Cardiac silhouette is enlarged. Interval extubation. Mild right hemidiaphragmatic elevation. Small pleural effusions mildly improved pulmonary edema. Hiatal hernia. Degenerative changes of the shoulders and spine. IMPRESSION: 1. Cardiomegaly with mildly improved pulmonary edema. 2. Small pleural effusions. 3. Hiatal hernia. 4. Interval extubation with removal of the enteric tube. ACT 112: Negative or not required by law. The above report was generated using voice recognition software. It may contain grammatical, syntax or spelling errors. Electronically signed by: Zan Acevedo M.D. 10/06/2022 7:21 AM
[2022-10-09] MEDS: amLODIPine BESYLATE 5 MG TAB PO SCH (14:12)
[2022-10-09] MEDS: ISOSORBIDE MONO EXTENDED REL 30 MG TABCR PO SCH (14:13)
[2022-10-09] MEDS: ATORVASTATIN 40 MG TAB PO SCH (20:10)
[2022-10-09] MEDS: MAGNESIUM HYDROXIDE SUSP 30 ML UDC PO PRN (20:10)
[2022-10-10] MEDS: HEPARIN SOD 5,000 UNIT/0.5 ML VIAL SQ SCH ×3 (06:05→21:10)
[2022-10-10 07:18] LABS: Hemoglobin 9.8 g/dl (12.0-16.0); Mean Corpuscular Hemoglobin 26.6 pg (25.0-34.0); Mean Corpuscular Hgb Conc 29.7 g/dL (32.0-36.0); Mean Corpuscular Volume 89.7 fL (80.0-100.0); Mean Platelet Volume 9.1 fL (9.4-12.4); Nucleated RBC # (auto) 0.02 K/uL (0-0.12); Nucleated RBC % (auto) 0.4 %; Platelet Count 218 K/uL (130-400); RDW Coefficient of Variation 17.5 % (11.5-14.5); RDW Standard Deviation 56.1 fL (36.4-46.3); Red Blood Count 3.68 M/uL (4.20-5.40); White Blood Count 5.58 K/ul (4.8-10.8)
[2022-10-10 07:37] LABS: BUN Creatinine Ratio 4.7 (10-20); Calcium 9.8 mg/dl (8.6-10.3); Creatinine Clr Calc Pharmacy 8.7 ml/min; Est GFR (African American) 9.9 ml/min; Est GFR (Non-African American) 8.6 ml/min; Potassium 4.7 mmol/L (3.5-5.1)
[2022-10-10] MEDS: METOPROLOL SUCC 25MG EXT REL TAB PO SCH ×2 (08:48→21:06)
[2022-10-10] MEDS: ACETAMINOPHEN 325 MG TAB PO SCH ×2 (08:48→16:45)
[2022-10-10] MEDS: ISOSORBIDE MONO EXTENDED REL 30 MG TABCR PO SCH (08:48)
[2022-10-10] MEDS: PANTOprazole 40 MG TAB PO SCH (08:49)
[2022-10-10] MEDS: ASPIRIN 81 MG ECTAB PO SCH (08:49)
[2022-10-10] MEDS: amLODIPine BESYLATE 5 MG TAB PO SCH (08:49)
[2022-10-10] MEDS: SEVELAMER HCL 800 MG TABLET PO SCH ×3 (08:49→16:46)
[2022-10-10] MEDS: UMECLIDINIUM/VILANTEROL 62.5/25MCG 7 PUFFS/INHALER INH SCH (08:50)
[2022-10-10] MEDS: NEPHROCAPS PO SCH (08:50)
[2022-10-10] MEDS: FLUTICASONE FUROATE 100MCG 14 PUFFS/INHALER INH SCH (08:51)
[2022-10-10] MEDS: FAMOTIDINE 20 MG in SYRINGE 3 ML IV SCH ×2 (08:53→21:16)
--- NOTE | 2022-10-10 11:51 | Hospitalist Progress Note ---
Date of Service October 10, 2022 Assessment & Plan (1) Acute hypoxemic respiratory failure: Plan: Patient is a 76-year-old female with past medical history of ESRD on hemodialysis, chronic anemia, sleep apnea presented to the ED with shortness of breath. She was needed to be emergently intubated following CODE BLUE and was transferred to ICU. She was extubated successfully on 10/05. She underwent dialysis on 10/05 for 3 L ultrafiltrate with 1 packed RBC. Also, underwent dialysis on 10/06 with 2 L ultrafiltrate. Acute hypoxic respiratory failure Secondary to volume overload End-stage renal disease H/O diastolic dysfunction Troponin elevation likely demand ischemia secondary to volume overload, in setting of end-stage renal disease Lactic Acidosis Chronic respiratory failure--on 2 L supplemental oxygen intermittently Pulm HTN --CT Chest Endotracheal tube terminates 2 cm from the lashae. Nasogastric tube terminates in the proximal stomach. This could be advanced by approximately 5 cm as the fenestrated line is located within the distal esophagus. Cardiomegaly with pulmonary edema and small bilateral pleural effusions. Multifocal patchy groundglass airspace opacities, right greater than left. This could represent alveolar pulmonary edema or a superimposed pneumonia. Consolidation within the bilateral lower lobes and right upper lobe posteriorly may represent a combination of atelectasis and pneumonia. Mediastinal lymphadenopathy, u nchanged. --CT Head:No acute intracranial hemorrhage, no evidence of acute territorial infarction or other acute intracranial disease process. -- Extubated on 10/05/2022 Volume status being managed through dialysis underwent dialysis on 10/05 for 3 L ultrafiltrate with 1 packed RBC. Also, underwent dialysis on 10/06 with 2 L ultrafiltrate. Currently undergoing dialysis as per schedule on Wednesday and Wednesday. PT OT recommended rehab; transferred to [facility] when bed is available. Acute on Chronic Anemia S/P 1 unit PRBCs Monitor CBC Received Epogen on 10/05/2022 Hemoglobin is stable Valvular heart disease Mild AR/MR/TR HTN continue home meds LAUREN on CPAP HTN HLP Continue home meds Bronchial Asthma Not in acute exacerbation DM II Continue Insulin per protocol Monitor BGs DVT Px Heparin SQ Code Status Full code Dispoawaiting placement to [facility]. Discharge when bed is available. Please note the above document was generated using voice recognition software. It may contain grammatical, syntax or spelling errors. Any formal questions or concerns about the content, text or information contained within the body of this dictation should be directly addressed to the provider for clarification Admission and Anticipated Discharge Date Admission Date: October 04, 2022 Subjective Patient seen and examined at bedside. She is lying on the bed comfortably; not in distress. Reports that her knee pain is better. No overnight events Review of Systems Review of Systems: All systems reviewed & are unremarkable except as noted in Subjective Physical Exam Physical Exam: Physical Exam: Vitals signs as noted above General Appearance:Moderately built and nourished, no apparent distress Head: normocephalic, Atraumatic Eyes: normal inspection, EOMI Neck: supple, Trachea midline Respiratory/Chest: Bilateral clear vesicular breath sound. Cardiovascular: S1, S2, No murmur Abdomen/GI:Soft, Non tender, Bowel sounds present Extremities/Musculoskeletal:normal inspection, Trace pedal edema. Right knee swelling present, slightly tender in medial aspect. No overlying erythema. Neurologic/Psych:Alert, awake, oriented, grossly no focal deficits Skin: normal color, warm Results & Data Results & Data Vital Signs (Past 12 Hours) Vital Signs Temp Pulse Pulse Pulse Resp BP Pulse Ox 10/10/22 11:33 10/10/22 11:20 36.8 C 63 17 152/91 H 94 10/10/22 08:00 63 10/10/22 07:31 36.9 C 63 18 144/68 H 97 10/10/22 03:41 36.8 C 58 L 18 135/62 99 O2 Del Method 10/10/22 11:33 Room Air 10/10/22 11:20 Room Air 10/10/22 08:00 10/10/22 07:31 Room Air 10/10/22 03:41 BiPAP Laboratory Results Laboratory Results WBC 5.58 K/ul (4.8-10.8) 10/10/22 06:50 RBC 3.68 M/uL (4.20-5.40) L 10/10/22 06:50 Hgb 9.8 g/dl (12.0-16.0) L 10/10/22 06:50 POC Hgb 8.8 g/dl (12.0-16.0) L 10/05/22 06:46 Hct 33.0 % (37.0-47.0) L 10/10/22 06:50 POC Hct 26 % (37-47) L 10/05/22 06:46 MCV 89.7 fL (80.0-100.0) 10/10/22 06:50 MCH 26.6 pg (25.0-34.0) 10/10/22 06:50 MCHC 29.7 g/dL (32.0-36.0) L 10/10/22 06:50 RDW Std Deviation 56.1 fL (36.4-46.3) H 10/10/22 06:50 RDW Coeff of Luis 17.5 % (11.5-14.5) H 10/10/22 06:50 Plt Count 218 K/uL (130-400) 10/10/22 06:50 MPV 9.1 fL (9.4-12.4) L 10/10/22 06:50 Immature Gran % (Auto) 0.3 % 10/05/22 03:50 Neut % (Auto) 75.9 % 10/05/22 03:50 Lymph % (Auto) 11.9 % 10/05/22 03:50 [place] % (Auto) 7.6 % 10/05/22 03:50 Eos % (Auto) 3.8 % 10/05/22 03:50 Baso % (Auto) 0.5 % 10/05/22 03:50 Neut # (Auto) 5.92 K/uL (1.40-6.50) 10/05/22 03:50 Lymph # (Auto) 0.93 K/uL (1.2-3.4) L 10/05/22 03:50 [place] # (Auto) 0.59 K/uL (0.11-0.59) 10/05/22 03:50 Eos # (Auto) 0.30 K/uL (0-0.50) 10/05/22 03:50 Baso # (Auto) 0.04 K/uL (0-0.2) 10/05/22 03:50 Immature Gran # (Auto) 0.02 K/uL (0.01-0.20) 10/05/22 03:50 Absolute Nucleated RBC 0.02 K/uL (0-0.12) 10/10/22 06:50 Nucleated RBC % (auto) 0.4 % 10/10/22 06:50 Polychromasia 1+ 10/05/22 03:50 PT 11.0 Seconds (9.0-12.0) 10/04/22 19:07 INR 1.0 (0.9-1.1) 10/04/22 19:07 APTT 30.5 Seconds (21.0-31.0) 10/05/22 03:50 PTT Ratio 1.1 10/05/22 03:50 Sample Site R Radial 10/05/22 06:46 POC pH 7.44 (7.35-7.45) 10/05/22 06:46 POC pCO2 42 mmHg (35-46) 10/05/22 06:46 POC pO2 106 mmHg (80-95) H 10/05/22 06:46 POC HCO3 29 lionel/L (19-24) H 10/05/22 06:46 POC Total CO2 30 mmol/L (24-31) 10/05/22 06:46 POC Base Excess 5.0 lionel/L (-9-1.8) H 10/05/22 06:46 ABG pH 7.41 (7.35-7.45) 10/04/22 23:03 ABG pH (Temp Correct) 7.453 (7.35-7.45) H 10/05/22 06:46 ABG pCO2 49 mmHg (35-46) H 10/04/22 23:03 ABG pCO2 (Temp Corrct 41 mmHg (35-46) 10/05/22 06:46 ABG pO2 66 mmHg (80-95) L 10/04/22 23:03 POC ABG pO2 at Pt Temp 102 10/05/22 06:46 ABG HCO3 31 mmol/L (19-24) H 10/04/22 23:03 POC ABG O2 Sat 98.0 % (90-95) H 10/05/22 06:46 ABG O2 Saturation 94.5 % (90-95) 10/04/22 23:03 ABG Base Excess 5.3 mEq/L (-9-1.8) H 10/04/22 23:03 [place] Test Pass 10/05/22 06:46 Oxygen Given 9.5 10/04/22 23:03 O2 Delivery Device Ventilator 10/05/22 06:46 POC O2 Rate 22 10/05/22 06:46 POC FiO2 50 % 10/05/22 06:46 Tidal Volume 380 10/05/22 06:46 PEEP 10 10/05/22 06:46 POC Sodium 135 mmol/L (135-144) 10/05/22 06:46 Sodium 140 mmol/L (136-145) 10/10/22 06:50 POC Potassium 5.0 mmol/L (3.3-5.0) 10/05/22 06:46 Potassium 4.7 mmol/L (3.5-5.1) 10/10/22 06:50 Chloride 105 mmol/L (98-107) 10/10/22 06:50 Carbon Dioxide 28 mmol/L (21-32) 10/10/22 06:50 Anion Gap 7 (3-11) 10/10/22 06:50 BUN 22 mg/dl (6-23) D 10/10/22 06:50 Creatinine 4.64 mg/dl (0.6-1.2) H* D 10/10/22 06:50 Est Cr Clr Drug Dosing 8.7 ml/min 10/10/22 06:50 Est GFR ( Amer) 9.9 ml/min 10/10/22 06:50 Est GFR (Non-Af Amer) 8.6 ml/min 10/10/22 06:50 BUN/Creatinine Ratio 4.7 (10-20) L 10/10/22 06:50 Glucose 87 mg/dl (70-99(Fasting)) 10/10/22 06:50 POC Glucose 84 mg/dl (70-99) 10/10/22 06:56 Lactate 3.4 mmol/L (0.4-2.0) H* 10/05/22 06:51 Calcium 9.8 mg/dl (8.6-10.3) 10/10/22 06:50 Phosphorus 3.9 mg/dl (2.5-4.9) 10/07/22 05:03 Magnesium 2.2 mg/dl (1.7-2.4) 10/07/22 05:03 Iron 36 mcg/dl (35-150) 10/06/22 04:32 TIBC 170 mcg/dl (250-450) L 10/06/22 04:32 Unsaturated IBC 134 mcg/dl (155-355) L 10/06/22 04:32 Transferrin % Sat 21 % (15-50) 10/06/22 04:32 Ferritin 1371.8 ng/ml (8-388) H 10/06/22 04:32 Total Bilirubin 0.4 mg/dl (0.2-1.0) 10/04/22 19:07 AST 22 U/L (13-39) 10/04/22 19:07 ALT 12 U/L (7-52) 10/04/22 19:07 Alkaline Phosphatase 146 U/L (34-104) H 10/04/22 19:07 Troponin I High Sens 23.0 pg/ml (0-14) H 10/05/22 06:51 B-Natriuretic Peptide 2528 pg/ml (0-100) H 10/05/22 06:51 Total Protein 7.2 gm/dl (6.0-8.3) 10/04/22 19:07 Albumin 3.7 gm/dl (3.4-5.0) 10/04/22 19:07 Globulin 3.5 gm/dl (2.5-4.0) 10/04/22 19:07 Albumin/Globulin Ratio 1.1 (0.9-2) 10/04/22 19:07 Procalcitonin 2.73 ng/ml (0-0.5) H 10/06/22 04:32 Nasal Screen MRSA (PCR) Negative (Negative) 10/05/22 22:30 SARS-CoV-2, RNA, NAAT NEGATIVE (NEGATIVE) 10/04/22 20:32 Blood Type O Positive 10/04/22 23:03 Antibody Screen NEGATIVE 10/04/22 23:03 Crossmatch See Detail 10/04/22 23:[address] 10/05/22 06:26 CT chest diagnostic wo con CT DOSE: 681.58 mGy.cm HISTORY: Hypoxia, resp distress TECHNIQUE: Multiaxial CT images of the chest were performed without contrast. A dose lowering technique was utilized adhering to the principles of ALARA. COMPARISON: Chest CTA 01/26/2022. FINDINGS: A multinodular right thyroid goiter again noted. The endotracheal tube terminates approximately 2 cm from the lashae. The nasogastric tube terminates within the stomach just beyond the diaphragmatic hiatus this could be advanced by 5 cm as the fenestrated line is located at the distal esophagus. There is a moderate hiatus hernia, unchanged. Limited views of the upper abdomen demonstrate a normal liver, spleen, adrenal glands. Partially visualized left renal hyper and hypodense lesion. These favor cysts. The heart remains enlarged. There are small bilateral pleural effusions, right greater than left. Mediastinal lymphadenopathy persists. Normal caliber thoracic aorta. Moderate to severe coronary artery calcifications again noted. No pericardial effusion. No acute fractures identified. No pneumothorax. Partial opacities of the right lower lobe bronchi. Interlobular septal thickening consistent with pulmonary edema. There are additional patchy groundglass airspace opacities seen throughout the lungs. Consolidation within the bilateral lower lobes and right upper lobe posteriorly. IMPRESSION: 1. Endotracheal tube terminates 2 cm from the lashae. Nasogastric tube terminates in the proximal stomach. This could be advanced by approximately 5 cm as the fenestrated line is located within the distal esophagus. 2. Cardiomegaly with pulmonary edema and small bilateral pleural effusions. 3. Multifocal patchy groundglass airspace opacities, right greater than left. This could represent alveolar pulmonary edema or a superimposed pneumonia. 4. Consolidation within the bilateral lower lobes and right upper lobe p osteriorly may represent a combination of atelectasis and pneumonia. 5. Mediastinal lymphadenopathy, unchanged. ACT 112: Negative or not required by law. Electronically signed by: Guilherme Rome M.D. 10/05/2022 7:[address] 10/05/22 06:26 CT head/brain wo con CLINICAL HISTORY: AMS Technique: Contiguous axial CT images of the head were acquired from the base of the skull to the vertex without intravenous contrast administration. Images were viewed in brain, subdural and bone windows. Automated dose lowering techniques and/or adjustment according to patient size were utilized for this exam. Comparison: None available at the time of this dictation. Findings: The ventricles, basal cisterns, and cerebral sulci are normal. There is no acute intracranial hemorrhage or evidence of acute territorial infarction. Neither mass effect, shift of the midline structures, nor abnormal extra-axial fluid collections are shown. Imaged portions of the paranasal sinuses and mastoid air cells are clear. The orbits appear normal. There are no acute fractures of the calvaria or scalp swelling. Impression: No acute intracranial hemorrhage, no evidence of acute territorial infarction or other acute intracranial disease process. ACT 112: Negative or not required by law. Electronically signed by: Maxx Jacobson M.D. 10/05/2022 7:38 AM Chest X-Ray 10/06/22 06:00 XR chest 1V portable HISTORY: 76 years-old Female CHF acute shortness of breath COMPARISON: Chest CT 10/05/2022 TECHNIQUE: AP view of the chest FINDINGS: Cardiac silhouette is enlarged. Interval extubation. Mild right hemidiaphragmatic elevation. Small pleural effusions mildly improved pulmonary edema. Hiatal hernia. Degenerative changes of the shoulders and spine. IMPRESSION: 1. Cardiomegaly with mildly improved pulmonary edema. 2. Small pleural effusions. 3. Hiatal hernia. 4. Interval extubation with removal of the enteric tube. ACT 112: Negative or not required by law. The above report was generated using voice recognition software. It may contain grammatical, syntax or spelling errors. Electronically signed by: Zan Acevedo M.D. 10/06/2022 7:21 AM
--- NOTE | 2022-10-10 12:04 | Nephrology Progress Note ---
Date of Service October 10, 2022 Assessment & Plan (1) End-stage renal disease on hemodialysis: (2) Secondary hyperparathyroidism of renal origin: (3) Anemia of chronic disease: (4) Status post total right knee replacement: (5) Acute hypoxemic respiratory failure: Plan ESRD, on hemodialysis Wednesday, Wednesday, Wednesday, admitted with acute hypoxic respiratory failure and volume overload. Had [id number] dialysis and estimated dry weight adjusted down to 64 kg. Volume status stable, electrolyte acceptable. Had dialysis yesterday. Currently waiting for rehab bed availability. -- Continue to monitor electrolyte, blood pressure, volume status, no indication for dialysis today, will continue to monitor over the weekend and plan to keep on regular schedule of Wednesday, Wednesday, Wednesday, while waiting for rehab bed availability. -- Left arm nephrology precaution, dose medications for eGFR less than 10, avoid IV fluid. Will follow Admission and Anticipated Discharge Date Admission Date: October 04, 2022 Subjective Mrs. Ward was seen and evaluated this morning. Overall she is feeling better, slowly getting stronger, got out of bed this morning and has been walking with the walker although feels like right knee pain slightly worsened as she has been pretty much in bed last few days. Nausea slightly improved although p.o. intake remains poor. Had dialysis yesterday, electrolyte acceptable. Review of Systems Review of Systems: Detailed review of system was done and pertinent positives and negatives are mentioned above. Physical Exam Constitutional: WD/WN, vitals as above + ill appearing; no acute distress Eyes: + anicteric sclerae Neck: normal visual inspection Respiratory: Auscultation: lungs clear to auscultation bilaterally Cardiovascular: Rate/Rhythm: regular rate and regular rhythm Heart Sounds: normal S1 and normal S2 Extremities: + AV fistula (left BC AVF); no edema Skin: no rashes, warm and dry Neurologic: no focal motor deficits Psychiatric: Orientation: alert and oriented x 3 Results & Data Vital Signs (Past 12 Hours) Vital Signs Temp Pulse Pulse Pulse Resp BP Pulse Ox 10/10/22 11:33 10/10/22 11:20 36.8 C 63 17 152/91 H 94 10/10/22 08:00 63 10/10/22 07:31 36.9 C 63 18 144/68 H 97 10/10/22 03:41 36.8 C 58 L 18 135/62 99 O2 Del Method 10/10/22 11:33 Room Air 10/10/22 11:20 Room Air 10/10/22 08:00 10/10/22 07:31 Room Air 10/10/22 03:41 BiPAP PG Care Time/CCT Total # of Minutes Spent Total Time Spent with Patient: Total time spent is greater than 50% in coordination of care (as documented) at patient's floor/unit and/or counseling patient: Coding Level of Care Code 23828 SUB INP/OBS CARE 2/35MIN Diagnoses End-stage renal disease on hemodialysis N18.6; Z99.2 Secondary hyperparathyroidism of renal origin N25.81 Anemia of chronic disease D63.8 Status post total right knee replacement Z96.651 Acute hypoxemic respiratory failure J96.01
[2022-10-10] MEDS: ATORVASTATIN 40 MG TAB PO SCH (21:06)
[2022-10-11] MEDS: ACETAMINOPHEN 325 MG TAB PO SCH ×2 (00:47→08:33)
[2022-10-11] MEDS: HEPARIN SOD 5,000 UNIT/0.5 ML VIAL SQ SCH (05:12)
[2022-10-11] MEDS: METOPROLOL SUCC 25MG EXT REL TAB PO SCH (08:33)
[2022-10-11] MEDS: NEPHROCAPS PO SCH (08:34)
[2022-10-11] MEDS: PANTOprazole 40 MG TAB PO SCH (08:34)
[2022-10-11] MEDS: ASPIRIN 81 MG ECTAB PO SCH (08:34)
[2022-10-11] MEDS: amLODIPine BESYLATE 5 MG TAB PO SCH (08:34)
[2022-10-11] MEDS: ISOSORBIDE MONO EXTENDED REL 30 MG TABCR PO SCH (08:35)
[2022-10-11] MEDS: FLUTICASONE FUROATE 100MCG 14 PUFFS/INHALER INH SCH (08:35)
[2022-10-11] MEDS: UMECLIDINIUM/VILANTEROL 62.5/25MCG 7 PUFFS/INHALER INH SCH (08:35)
[2022-10-11] MEDS: SEVELAMER HCL 800 MG TABLET PO SCH ×2 (08:35→11:53)
[2022-10-11] MEDS: FAMOTIDINE 20 MG in SYRINGE 3 ML IV SCH (08:40)
--- NOTE | 2022-10-11 11:08 | Nephrology Progress Note ---
Date of Service October 11, 2022 Assessment & Plan (1) End-stage renal disease on hemodialysis: (2) Secondary hyperparathyroidism of renal origin: (3) Anemia of chronic disease: (4) Status post total right knee replacement: (5) Acute hypoxemic respiratory failure: Plan ESRD, on hemodialysis Wednesday, Wednesday, Wednesday, admitted with acute hypoxic respiratory failure and volume overload. Had [id number] dialysis and estimated dry weight adjusted down to 64 kg. Volume status stable, electrolyte acceptable. Had dialysis yesterday. Currently waiting for rehab bed availability. -- no indication for dialysis today, plan to go home later today and plan to keep on regular schedule of Wednesday, Wednesday, Wednesday. -- Left arm nephrology precaution, dose medications for eGFR less than 10, avoid IV fluid. Will follow. Admission and Anticipated Discharge Date Admission Date: October 04, 2022 Subjective Mrs. Ward was seen and evaluated this morning. Overall she is feeling better except some pain in her right knee surgical area. She is planning to just go home as she has home physical therapy instead of going to rehab. Had dialysis Wednesday, overall clinically asymptomatic, oxygen saturation 97% on room air. Blood pressure slightly elevated. Review of Systems Review of Systems: Detailed review of system was done and pertinent positives and negatives are mentioned above. Physical Exam Constitutional: WD/WN, vitals as above no acute distress Eyes: + anicteric sclerae Neck: normal visual inspection Respiratory: Auscultation: lungs clear to auscultation bilaterally Cardiovascular: Rate/Rhythm: regular rate and regular rhythm Heart Sounds: normal S1 and normal S2 Extremities: + AV fistula (left BC AVF); no edema Skin: no rashes, warm and dry Neurologic: no focal motor deficits Psychiatric: Orientation: alert and oriented x 3 Results & Data Vital Signs (Past 12 Hours) Vital Signs Temp Pulse Pulse Resp BP Pulse Ox O2 Del Method 10/11/22 08:30 36.5 C 61 17 162/77 H 97 Room Air 10/11/22 03:41 37.0 C 66 18 147/77 H 96 Room Air 10/10/22 23:57 37.0 C 69 18 161/76 H 94 Room Air PG Care Time/CCT Total # of Minutes Spent Total Time Spent with Patient: Total time spent is greater than 50% in coordination of care (as documented) at patient's floor/unit and/or counseling patient: Coding Level of Care Code 45404 SUB INP/OBS CARE MIN Diagnoses End-stage renal disease on hemodialysis N18.6; Z99.2 Secondary hyperparathyroidism of renal origin N25.81 Anemia of chronic disease D63.8 Status post total right knee replacement Z96.651 Acute hypoxemic respiratory failure J96.01
--- NOTE | 2022-10-11 12:20 | Discharge Summary ---
Date of Service October 11, 2022 Admission HPI Per Admitting Provider History obtained from patient, family, and records. Medical history significant for diastolic dysfunction (EF 60%, TTE 2022), valvular heart disease (mild AR/MR/TR), LAUREN on CPAP, pulmonary hypertension, HTN, hyperlipidemia, ESRD on HD, bronchial asthma, DM2 diet-controlled, GERD. Recent confinement September 08 to 2022 under Orthopedics service for elective right TKR. Patient noted to have multifocal atrial tachycardia and post op hypoxemia. Cardiology discontinued patient's betaxolol Rx and started patient on Toprol. Patient with worsening shortness of breath over the last few days, more pronounced on exertion. Patient orthopneic. No unusual cough symptoms. No chest pain. Patient compliant with dialysis sessions. Patient brought by daughter to ER for evaluation. Nitropaste administered at the ER. O2 sats dropped to 80s on ambulation back to bed from the bathroom. Medical History as above Surgical History : Right knee surgery, appendectomy, hysterectomy, thyroidectomy, back surgery, vascular procedures, cataract surgery, spinal tumor removal/biopsy partial thyroidectomy Family History : Breast cancer, DM, hypertension Personal/Social history : Non-smoker, no EtOH intake, homemaker in her younger years Admission Exam Per Admitting Provider GENERAL: Slightly uncomfortable, minimal respiratory distress SKIN: Pallor, warm HEENT: Pale palpebral conjunctivae, no ptosis, dry buccal mucosa, nasal cannula in place NECK : Supple, no tenderness CHEST : Decreased breath sounds, bibasilar crackles, no tenderness HEART : RRR, no obvious murmurs ABDOMEN: Some distention, nontender EXTREMITIES : RLE swelling, no LE tenderness, no other conspicuous deformities noted NEUROLOGIC : Coherent, no facial asymmetry, no other gross focality Principal Diagnosis Acute hypoxic respiratory failure Secondary to volume overload End-stage renal disease H/O diastolic dysfunction Troponin elevation likely demand ischemia secondary to volume overload, in setting of end-stage renal diseas Discharge Exam Physical Exam: Vitals signs as noted above General Appearance:Moderately built and nourished, no apparent distress Head: normocephalic, Atraumatic Eyes: normal inspection, EOMI Neck: supple, Trachea midline Respiratory/Chest: Bilateral clear vesicular breath sound. Cardiovascular: S1, S2, No murmur Abdomen/GI:Soft, Non tender, Bowel sounds present Extremities/Musculoskeletal:normal inspection, Trace pedal edema. Right knee swelling present, slightly tender in medial aspect. No overlying erythema. Neurologic/Psych:Alert, awake, oriented, grossly no focal deficits Skin: normal color, warm Discharge Data Allergies Allergy/AdvReac Type Severity Reaction Status Date / Time pollen extracts Allergy Mild sneezing, Verified 10/04/22 21:00 watery eyes No Known Drug Allergies Allergy Unknown Verified 10/04/22 21:00 Consultations 10/04/22 20:10 ED Decision to Admit Stat 10/04/22 23:58 Consult Nephrology Routine 10/05/22 06:38 Consult Editor Department Routine Ordered Studies 10/05/22 06:26 CT chest diagnostic wo con Stat CT head/brain wo con Stat Hospital Course (1) Acute hypoxemic respiratory failure: Patient is a 76-year-old female with past medical history of ESRD on hemodialysis, chronic anemia, sleep apnea presented to the ED with shortness of breath. She was initially admitted to general medical floor; she was needed to be emergently intubated following code purple and was transferred to ICU. She was extubated successfully on 10/05. She underwent dialysis on 10/05 for 3 L ultrafiltrate with 1 packed RBC. Also, underwent dialysis on 10/06 with 2 L ultrafiltrate. Patient's oxygen requirement down trended after the dialysis. Repeat chest x-ray showed improvement in pulmonary edema. PT OT evaluation was done; patient was recommended for rehab. Patient oxygen requirement was weaned off and she was saturating well in room air at discharge. Discussion was done with family; decision was made to discharge patient home as there were no dialysis beds available at rehab. Prescription provided for metoprolol and tramadol as per request by her daughter. Patient to follow-up with PCP and resume scheduled hemodialysis as before. Please note the above document was generated using voice recognition software. It may contain grammatical, syntax or spelling errors. Any formal questions or concerns about the content, text or information contained within the body of this dictation should be directly addressed to the provider for clarification Total Time Total Time Spent Total Time Spent (In Minutes): 45 Total Time Includes: Examination of the Patient, Discharge Planning, Medication Reconciliation, Communication With Other Providers and Other Discharge Plan Discharge Items Patient Disposition: Home - Self-Care Reason For Visit: RESP FAILURE Discharge Diagnosis: Acute hypoxic respiratory failure secondary to volume overload Condition on Discharge: Fair Activity: Resume your previous activity Non-emergency contact: Primary Care Provider Call non-emergency contact if: you have any medication questions and your symptoms worsen Follow-up/Referrals: Alberto Yuen MD [Primary Care Provider] - Diet: Regular Addtl Attending Provider Instructions: You were admitted to the hospital due to low oxygen level. You are treated with hemodialysis. You can continue back to your regular dialysis. Appointment would be set up with your primary care doctor for sometime next week. Pending Studies at Discharge: No Stand-Alone Forms: My [facility] [employer], Smoking Cessation Medications and DC Order Prescriptions: Continued atorvastatin 40 mg tablet 40 mg PO HS pantoprazole 40 mg tablet,delayed release (DR/EC) 40 mg PO DAILYBB lidocaine-prilocaine 2.5-2.5 % cream See Rx Instructions topical .COMPLEX Rx Instructions: apply small amount to access site (AVF) 1 to 2 hours before dialysis. cover with occlusive dressing (SARAN WRAP) polyethylene glycol 3350 [Miralax] 17 gram powder in packet 17 g PO BID PRN (Reason: Constipation) Rx Instructions: pt uses prn nitroglycerin [Nitrostat] 0.4 mg tablet, sublingual 0.4 mg sublingual Q5M PRN (Reason: Chest Pain) Rx Instructions: do not exceed 3 doses per episode famotidine 20 mg tablet 20 mg PO AMHS triamcinolone acetonide 0.025 % lotion 1 applic topical BID PRN (Reason: Rash) amlodipine 2.5 mg Tablet 2.5 mg PO QAM montelukast [Singulair] 5 mg Tablet,Chewable 10 mg PO DAILY PRN (Reason: allergies) acetaminophen [Tylenol Extra Strength] 500 mg Tablet 1,000 mg PO Q8 30 Days Qty: 180 0RF Rx Instructions: Take 3 times per day to lessen pain. Trelegy Ellipta 100-62.5-25 mcg Blister With Device 1 inh INHALATION QAM Rx Instructions: rinse after use isosorbide mononitrate 30 mg tablet extended release 24 hr 30 mg PO QAM fluticasone propionate 50 mcg/actuation spray,suspension 2 spray INTRANASAL QAM PRN (Reason: Allergy Symptoms) albuterol sulfate [Ventolin HFA] 90 mcg/actuation HFA aerosol inhaler 2 puff INHALATION Q6 PRN (Reason: Wheezing) sevelamer carbonate [Renvela] 800 mg tablet 1,600 mg PO TIDM ondansetron HCl 4 mg tablet 4 mg PO Q8 PRN (Reason: Nausea) Rx Instructions: TAKE ONE TABLET BY MOUTH TWICE DAILY NEEDED FOR NAUSEA / VOMITING ProRenal 8 mg iron-800 mcg-1,000 unit tablet 1 tab PO QAM aspirin 81 mg tablet,delayed release (DR/EC) 81 mg PO DAILY Rx Instructions: Take to prevent blood clots. metoprolol succinate 25 mg Tablet Extended Release 24 Hr 75 mg PO BID 30 Days Qty: 180 0RF Changed tramadol 50 mg tablet 50 mg PO DAILY PRN (Reason: Pain) Qty: 20 0RF Discharge Orders: Discharge Order (Routine); Ordered 10/11/22 Ordered By: Fernandez Mcneal Admission Data Admit Date/Time: 10/04/22 22:43 Attending Provider: Fernandez Mcneal Admit Provider: Ignacio Aceves Primary Care Provider: Alberto Yuen Other Providers: Ignacio Aceves ; Nick Schrader ; Sebastian Cadena ; Hieu Rocha ; [facility] Other Interventions: Discharge Summary Assessment (RN) Last Done: 10/11/22 12:10
== END 2022-10-11 14:55 | disposition home or self-care (01) | DRG 208 ==
LOC: ED 18:59 → 4W 22:43 → SUATTDRO 22:43 → 4W 23:36 → 1E 10-05 06:20 → 2E 10-07 14:14

== ENCOUNTER 2022-10-23 18:13 | Inpatient (IN) ==
[2022-10-23] MEDS ORDERED: METOPROLOL TARTRATE 1 MG/ML VIAL IV STA ×2 (18:33→23:43)
[2022-10-23] MEDS ORDERED: ONDANSETRON INJ 2 MG/ML 2 ML VIAL IV STA (18:44)
[2022-10-23 18:45] LABS: Basophils # (auto) 0.03 K/uL (0.00-0.20); Basophils % (auto) 0.3 %; Eosinophils # (auto) 0.06 K/uL (0.00-0.50); Eosinophils % (auto) 0.7 %; Hematocrit (blood only) 36.8 % (37.0-47.0); Hemoglobin 11.5 g/dl (12.0-16.0); Immature Granulocytes # (auto) 0.03 K/uL (0.01-0.20); Immature Granulocytes % (auto) 0.3 %; Lymphocytes # (auto) 1.16 K/uL (1.20-3.40); Lymphocytes % (auto) 13.5 %; Mean Corpuscular Hemoglobin 26.9 pg (25.0-34.0); Mean Corpuscular Hgb Conc 31.3 g/dL (32.0-36.0); Mean Corpuscular Volume 86.2 fL (80.0-100.0); Mean Platelet Volume 10.1 fL (9.4-12.4); Monocytes # (auto) 0.71 K/uL (0.11-0.59); Monocytes % (auto) 8.2 %; Neutrophils # (auto) 6.63 K/uL (1.40-6.50); Nucleated RBC # (auto) 0.02 K/uL (0.00-0.12); Nucleated RBC % (auto) 0.2 %; Platelet Count 203 K/uL (130-400); RDW Coefficient of Variation 16.7 % (11.5-14.5); RDW Standard Deviation 51.5 fL (36.4-46.3); Red Blood Count 4.27 M/uL (4.20-5.40); White Blood Count 8.62 K/ul (4.8-10.8)
--- NOTE | 2022-10-23 18:50 | Emergency Department Note ---
Impression & Plan Atrial tachycardia, End-stage renal disease on hemodialysis, Nausea ED Provider Note Provider: Layo Baron MD DATE OF SERVICE: 10/23/2022 CHIEF COMPLAINT: Weakness, nausea HISTORY OF PRESENT ILLNESS: Patient is a 77-year-old female history of ESRD on HD, CHF, multifocal atrial tachycardia, tachybradycardia syndrome, diabetes, asthma presenting here today via ambulance from her home. Patient evidently was doing fairly well this morning. Went to dialysis and began to feel cold and have a bit of the shakes they report. Family as well as patient reports that they had to cut dialysis short to some degree as she was not feeling so well. Went home and evidently was weak and not feeling very well. Has been nauseous this afternoon. Had a little bit of an ache this morning. No pain reported. No falls. EMS was activated and came here they noted her to have an irregular fast heart rate. EMS gave a 10 mg bolus of diltiazem prior to arrival without significant or sustained improvement of possible A-fib. Was hospitalized here with fluid overload/pulm edema requiring brief intubation several weeks ago. Denies significant swelling at this point. PAST MEDICAL HISTORY: As noted above MEDICATIONS: Reviewed home medications and is on metoprolol by report. SOCIAL HISTORY: Resides at home PHYSICAL EXAM: GENERAL: alert and oriented in no acute distress on stretcher Head: normocephalic and atraumatic EYES: No injection, discharge or icterus. NECK: Trachea midline with a bit of low-lying swelling just above the collarbone since like to the rightreported to be ongoing greater issue ENT: Mucous membranes pink and moist. LUNGS: Airway patent. No retractions or tachypnea HEART: Regular rate and rhythm. No chest wall tenderness ABDOMEN: Soft and non-tender, without guarding or rebound. SKIN: Acyanotic, warm, dry, without rashes EXTREMITIES: Without swelling in the lower extremities or tenderness. Left upper extremity is bandaged with an upper extremity fistula in place with thrill. NEUROLOGICAL: No focal deficits. No aphasia. No facial droop or slurred speech. EK bpm what appears to be focal atrial tachycardia versus rapid A-fib without acute ST segment elevation. QTc 492. CONTINUOUS CARDIAC MONITORING: was ordered and showed a heart rate of 100s-140s bpm in atrial tachycardia Patient's laboratory studies and imaging reviewed. Differential includes Infection, dehydration, metabolic abnormality, hypo/hyperglycemia, electrolyte disturbance, anemia, hypoxia, cardiac sources, intracerebral event, toxicologic, neurologic, as well as other pathologies. IMPRESSION/MEDICAL DECISION MAKING: Reviewed recent hospitalization and prior cardiology notes from August of this year when she was an inpatient. Question A-fib versus multifocal atrial tach ycardia. Limited improvement nonsustained at all with 10 mg diltiazem prior to arrival. Blood pressures low 100 systolic initially. Given prior response we will trial a dose of metoprolol. Basic labs sent including electrolytes. COVID testing sent. Does not appear grossly fluid overloaded. In no obvious distress. Denies chest pain. Blood work here without significant leukocytosis and actually somewhat improved anemia. Denies other infectious symptoms or fever. Blood work without leukocytosis. Slightly improved mild anemia. No severe electrolyte abnormalities noted. Creatinine 4.46 consistent with hemodialysis. No signs of hepatitis or pancreatitis. TSH within normal limits. High- sensitivity troponin minimally elevated today at 43 compared to baseline recently in the 20s. Not having active chest pain however question if it might be more demand related given her tachycardia. 5 mg dose of metoprolol did not significantly impact her heart rate. Blood pressure actually improved some and is now she is slightly hypertensive. Discussed with cardiology best options going forward given the history of MAT versus A-fib. He would not start anticoagulation and recommended a amiodarone drip to be started. Patient with persistent nausea but dry heaves even after the Zofran. Family state Phenergan was helpful before and we will try a very small dose of this. Benign abdomen otherwise and doubt other acute intra-abdominal process at this point. Discussed with patient and family and they agree with the plan and the hospitalist was contacted. DIAGNOSIS: Atrial fibrillation, weakness, end-stage renal disease on hemodialysis, nausea DISPOSITION: Hospitalist will evaluate Patient was agreeable with this plan. Critical Care I have personally spent 31 minutes of critical care time in the direct management of this patient. This includes bedside care, interpretation of diagnostic studies, and testing, discussion with consultants, patient, and family members, and other required patient management activities. These 31 minutes is in excess of all separately billable procedures. Past Med/Surg History Medical History Anemia of chronic disease Aortic stenosis Mild aortic stenosis (ASHLI 1.3-1.4cm2, MG 15.3mmhg) per 03/2022 echo Asthma, moderate persistent AV fistula LUE Bilateral primary osteoarthritis of knee Chronic anemia Hx iron infusions Chronic anemia Diabetes mellitus diet controlled End-stage renal disease on hemodialysis MWF ([facility]) GERD (gastroesophageal reflux disease) Gout History of COVID-19 Most recent 10/2021 ([facility])- symptoms resolved Hyperlipidemia Hypertension Osteoarthritis of knees, bilateral RSV (respiratory syncytial virus pneumonia) Sleep apnea CPAP + 2L HS Surgical History H/O partial thyroidectomy H/O: hysterectomy SANDRA BSO History of appendectomy History of cardiac cath 2017 ([facility])- no stents History of cataract surgery History of cholecystectomy History of colonoscopy History of esophagogastroduodenoscopy (EGD) 10/2021 History of lumbar surgery History of oral surgery salivary gland surgery History of tooth extraction all teeth removed S/P arteriovenous (AV) fistula creation Status post biopsy of kidney kidney disease Family History Daughter Cancer Breast Daughter Cancer Breast Daughter Hypertension Daughter Hypertension Father Diabetes Hypertension Mother Hypertension Brother Diabetes Brother Diabetes Sister Diabetes Sister Diabetes Sister Hypertension Sister Hypertension Other No family history of adverse response to anesthesia Social History Smoking Status: Never smoker Second Hand Exposure: No; Do You Dip or Chew Tobacco: No; Hx Alcohol Use: No Hx Substance Use: No Preferred Language: Romanian Communication Ability: Effective Communication Ability Comment: daughter states her mother can read/write/understand albanian Instrumentation Technician Required: No Beliefs That Will Affect Care: None marital status: / Current Living Situation: Family Current Living Situation Comment: Lives with daughter Feels Safe at Home: Yes Assistive Devices: Cane, CPAP, Oxygen - at Night and Walker Allergies Allergies Allergy/AdvReac Type Severity Reaction Status Date / Time pollen extracts Allergy Mild sneezing, Verified 10/23/22 19:18 watery eyes Home Meds Home Medications Medication Instructions Recorded Confirmed atorvastatin 40 mg tablet 40 mg PO HS 11/10/18 10/23/22 famotidine 20 mg tablet 20 mg PO AMHS 05/28/21 10/23/22 lidocaine-prilocaine 2.5 %-2.5 % See Rx Instructions topical 05/28/21 10/23/22 topical cream .COMPLEX nitroglycerin 0.4 mg sublingual 0.4 mg sublingual Q5M PRN Chest 05/28/21 10/23/22 tablet (Nitrostat) Pain pantoprazole 40 mg tablet,delayed 40 mg PO DAILYBB 05/28/21 10/23/22 release polyethylene glycol 3350 17 gram 17 g PO BID PRN Constipation 05/28/21 10/23/22 oral powder packet (Miralax) triamcinolone acetonide 0.025 % 1 applic topical BID PRN Rash 05/28/21 10/23/22 lotion fluticasone fur. 100 mcg-umeclid 1 inh inhalation QAM 10/14/21 10/23/22 62.5 mcg-vilant 25 mcg inhalat.powder (Trelegy Ellipta) albuterol sulfate 90 mcg/actuation 2 puff inhalation Q6 PRN Wheezing 01/26/22 10/23/22 aerosol inhaler (Ventolin HFA) fluticasone propionate 50 2 spray intranasal QAM PRN Allergy 01/26/22 10/23/22 mcg/actuation nasal Symptoms spray,suspension isosorbide mononitrate 30 mg 30 mg PO QAM 01/26/22 10/23/22 tablet,extended release 24 hr ondansetron HCl 4 mg tablet 4 mg PO Q8 PRN Nausea 01/26/22 10/23/22 sevelamer carbonate 800 mg tablet 1,600 mg PO TIDM 01/26/22 10/23/22 (Renvela) vit B complx, C-iron 8 mg-folic 1 tab PO QAM 01/26/22 10/23/22 acid 800 mcg-D3 1,000 unit-zinc tablet (ProRenal) amlodipine 2.5 mg tablet 2.5 mg PO QAM 06/15/22 10/23/22 montelukast 5 mg chewable tablet 10 mg PO DAILY PRN allergies 09/08/22 10/23/22 (Singulair) aspirin 81 mg tablet,delayed 81 mg PO DAILY 10/04/22 10/23/22 release Previous Rx's Medication Instructions Recorded tramadol 50 mg tablet 50 mg PO DAILY PRN Pain #20 tabs 10/11/22 Results & Data (ED) Vital Signs Vital Signs - 24 hr 10/23/22 18:25 10/23/22 18:25 10/23/22 18:25 Temperature 37.0 C 37.0 C Temperature Source Oral Oral Pulse Rate 125 H Pulse Rate [Apical] 125 H Respiratory Rate 20 20 Respiratory Effort / Characteristics Non-Labored Spontaneous Non-Labored Spontaneous Respiratory Depth Normal Normal Blood Pressure 108/76 Blood Pressure [Right Arm] 108/76 Blood Pressure Mean 86 Blood Pressure Mean [Right Arm] 86 Blood Pressure Position Sitting Blood Pressure Position [Right Arm] Sitting Pulse Oximetry 93 93 93 Oxygen Delivery Method Room Air Room Air Room Air Sepsis Recent Fever Within 48 Hours No Sepsis New/Unexplained Change in Mental Status N/A Sepsis Action Taken by Nursing No Action Required 10/23/22 18:33 10/23/22 18:22 10/23/22 19:04 Temperature Temperature Source Pulse Rate 127 H 134 H 130 H Pulse Rate [Apical] Respiratory Rate 20 Respiratory Effort / Characteristics Respiratory Depth Blood Pressure 132/71 Blood Pressure [Right Arm] Blood Pressure Mean Blood Pressure Mean [Right Arm] Blood Pressure Position Blood Pressure Position [Right Arm] Pulse Oximetry 93 Oxygen Delivery Method Room Air Sepsis Recent Fever Within 48 Hours Sepsis New/Unexplained Change in Mental Status Sepsis Action Taken by Nursing 10/23/22 20:33 Temperature Temperature Source Pulse Rate Pulse Rate [Apical] 124 H Respiratory Rate 18 Respiratory Effort / Characteristics Respiratory Depth Blood Pressure Blood Pressure [Right Arm] 114/93 Blood Pressure Mean Blood Pressure Mean [Right Arm] 100 Blood Pressure Position Blood Pressure Position [Right Arm] Pulse Oximetry 91 Oxygen Delivery Method Room Air Sepsis Recent Fever Within 48 Hours Sepsis New/Unexplained Change in Mental Status Sepsis Action Taken by Nursing Laboratory Data 10/23/22 18:24 10/23/22 18:24 Lab Results 10/23/22 10/23/22 10/23/22 Range/Units 18:24 18:24 18:24 WBC 8.62 (4.8-10.8) K/ul RBC 4.27 (4.20-5.40) M/uL Hgb 11.5 L (12.0-16.0) g/dl Hct 36.8 L (37.0-47.0) % MCV 86.2 (80.0-100.0) fL MCH 26.9 (25.0-34.0) pg MCHC 31.3 L (32.0-36.0) g/dL RDW Std Deviation 51.5 H (36.4-46.3) fL RDW Coeff of Luis 16.7 H (11.5-14.5) % Plt Count 203 (130-400) K/uL MPV 10.1 (9.4-12.4) fL Immature Gran % (Auto) 0.3 % Neut % (Auto) 77.0 % Lymph % (Auto) 13.5 % [place] % (Auto) 8.2 % Eos % (Auto) 0.7 % Baso % (Auto) 0.3 % Neut # (Auto) 6.63 H (1.40-6.50) K/uL Lymph # (Auto) 1.16 L (1.20-3.40) K/uL [place] # (Auto) 0.71 H (0.11-0.59) K/uL Eos # (Auto) 0.06 (0.00-0.50) K/uL Baso # (Auto) 0.03 (0.00-0.20) K/uL Immature Gran # (Auto) 0.03 (0.01-0.20) K/uL Absolute Nucleated RBC 0.02 (0.00-0.12) K/uL Nucleated RBC % (auto) 0.2 % Sodium 137 (136-145) mmol/L Potassium 4.6 (3.5-5.1) mmol/L Chloride 93 L (98-107) mmol/L Carbon Dioxide 35 H (21-32) mmol/L Anion Gap 9 (3-11) BUN 22 (6-23) mg/dl Creatinine 4.46 H (0.6-1.2) mg/dl Est Cr Clr Drug Dosing 8.9 ml/min Est GFR ( Amer) 10.3 ml/min Est GFR (Non-Af Amer) 8.9 ml/min BUN/Creatinine Ratio 4.9 L (10-20) Glucose 104 H (70-99(Fasting)) mg/dl Calcium 9.0 (8.6-10.3) mg/dl Magnesium 2.0 (1.7-2.4) mg/dl Total Bilirubin 0.5 (0.2-1.0) mg/dl AST 18 (13-39) U/L ALT 11 (7-52) U/L Alkaline Phosphatase 141 H (34-104) U/L Troponin I High Sens 43.1 H (0-14) pg/ml Total Protein 7.5 (6.0-8.3) gm/dl Albumin 4.1 (3.4-5.0) gm/dl Globulin 3.4 (2.5-4.0) gm/dl Albumin/Globulin Ratio 1.2 (0.9-2) Lipase 59 (11-82) U/L TSH 1.838 (0.300-4.500) uIu/ml SARS-CoV-2, RNA, NAAT (NEGATIVE) 10/23/22 10/23/22 Range/Units 19:11 20:06 WBC (4.8-10.8) K/ul RBC (4.20-5.40) M/uL Hgb (12.0-16.0) g/dl Hct (37.0-47.0) % MCV (80.0-100.0) fL MCH (25.0-34.0) pg MCHC (32.0-36.0) g/dL RDW Std Deviation (36.4-46.3) fL RDW Coeff of Luis (11.5-14.5) % Plt Count (130-400) K/uL MPV (9.4-12.4) fL Immature Gran % (Auto) % Neut % (Auto) % Lymph % (Auto) % [place] % (Auto) % Eos % (Auto) % Baso % (Auto) % Neut # (Auto) (1.40-6.50) K/uL Lymph # (Auto) (1.20-3.40) K/uL [place] # (Auto) (0.11-0.59) K/uL Eos # (Auto) (0.00-0.50) K/uL Baso # (Auto) (0.00-0.20) K/uL Immature Gran # (Auto) (0.01-0.20) K/uL Absolute Nucleated RBC (0.00-0.12) K/uL Nucleated RBC % (auto) % Sodium (136-145) mmol/L Potassium (3.5-5.1) mmol/L Chloride (98-107) mmol/L Carbon Dioxide (21-32) mmol/L Anion Gap (3-11) BUN (6-23) mg/dl Creatinine (0.6-1.2) mg/dl Est Cr Clr Drug Dosing ml/min Est GFR ( Amer) ml/min Est GFR (Non-Af Amer) ml/min BUN/Creatinine Ratio (10-20) Glucose (70-99(Fasting)) mg/dl Calcium (8.6-10.3) mg/dl Magnesium (1.7-2.4) mg/dl Total Bilirubin (0.2-1.0) mg/dl AST (13-39) U/L ALT (7-52) U/L Alkaline Phosphatase (34-104) U/L Troponin I High Sens 45.9 H (0-14) pg/ml Total Protein (6.0-8.3) gm/dl Albumin (3.4-5.0) gm/dl Globulin (2.5-4.0) gm/dl Albumin/Globulin Ratio (0.9-2) Lipase (11-82) U/L TSH (0.300-4.500) uIu/ml SARS-CoV-2, RNA, NAAT NEGATIVE (NEGATIVE) Administered Medications Amiodarone HCl/Dextrose (Nexterone / D5w) 360 mg in 200 mls @ 33.333 mls/hr IV .Q6H RIVAS Stop: 11/22/22 20:14 Last Admin: 10/23/22 20:20 Dose: 1 mg/min, 33.3 mls/hr Documented By: GINA Co-signed By: AMS Discontinued Medications Promethazine HCl (Phenergan) 6.25 mg in 50.25 mls @ 201 mls/hr IV NOW STA Stop: 10/23/22 20:15 Last Infusion: 10/23/22 21:15 Dose: 0 mls/hr Documented By: Admin: 10/23/22 20:20 Dose: 201 mls/hr Documented By: GINA Metoprolol Tartrate (Metoprolol Tartrate 1 Mg/Ml Vial) 5 mg IV NOW STA Stop: 10/23/22 18:34 Last Admin: 10/23/22 19:04 Dose: 5 mg Documented By: GINA Ondansetron HCl (Ondansetron Inj 2 Mg/Ml 2 Ml Vial) 4 mg IV NOW STA Stop: 09/01/23 18:45 Last Admin: 10/23/22 19:04 Dose: 4 mg Documented By: Imaging Data Radiologist's Impression: Chest X-Ray 10/23/22 18:26 SINGLE VIEW CHEST CLINICAL HISTORY: Generalized weakness. FINDINGS: An AP, portable, upright chest radiograph is compared to study dated 10/06/2022 and correlated with chest CT dated 10/05/2022. The examination is degraded by portable technique and patient rotation. There is a large hiatal hernia. The heart is enlarged noting atherosclerotic calcification of the thoracic aorta. There is mild pulmonary vascular congestion. Prominence along the right mediastinal contour likely corresponds to lymphadenopathy when correla susy with the recent chest CT. There is chronic elevation of the right hemidiaphragm with bibasilar scarring/atelectasis. No large pleural effusion or pneumothorax is seen. The skeletal structures are osteopenic. The bony thorax is grossly intact. IMPRESSION: 1. Cardiomegaly with mild pulmonary vascular congestion. 2. No airspace consolidation or large pleural effusion is identified. 3. Mediastinal lymphadenopathy is again noted. 4. Large hiatal hernia. ACT 112: Negative or not required by law. Electronically signed by: Kwan Gonzalez M.D. 10/23/2022 7:15 PM Discharge Plan Visit Data Chief Complaint: Weakness Stated Complaint: WEAKNESS, AFIB ED Provider: Layo Baron Discharge Problem: Atrial tachycardia, End-stage renal disease on hemodialysis, Nausea Patient Disposition: Admitted As Inpatient Discharge Instructions Interventions: ED Discharge Assessment Last Done: 10/23/22 22:13
[2022-10-23 19:00] LABS: Alanine Aminotransferase 11 U/L (7-52); Albumin Globulin Ratio 1.2 (0.9-2); Albumin Level 4.1 gm/dl (3.4-5.0); Alkaline Phosphatase 141 U/L (34-104); Anion Gap 9 (3-11); Aspartate Aminotransferase 18 U/L (13-39); BUN Creatinine Ratio 4.9 (10-20); Bilirubin,Total 0.5 mg/dl (0.2-1.0); Blood Urea Nitrogen 22 mg/dl (6-23); Carbon Dioxide 35 mmol/L (21-32); Chloride 93 mmol/L (98-107); Creatinine Clr Calc Pharmacy 8.9 ml/min; Est GFR (African American) 10.3 ml/min; Est GFR (Non-African American) 8.9 ml/min; Globulin 3.4 gm/dl (2.5-4.0); Glucose 104 mg/dl (70-99(Fasting)); Potassium 4.6 mmol/L (3.5-5.1); Sodium 137 mmol/L (136-145); Total Protein 7.5 gm/dl (6.0-8.3)
[2022-10-23 19:07] LABS: Troponin I High Sensitivity 43.1 pg/ml (0-14)
[2022-10-23 19:08] LABS: Lipase 59 U/L (11-82)
--- NOTE | 2022-10-23 19:17 | XRay Report ---
SINGLE VIEW CHEST CLINICAL HISTORY: Generalized weakness. FINDINGS: An AP, portable, upright chest radiograph is compared to study dated 10/06/2022 and correlat ed with chest CT dated 10/05/2022. The examination is degraded by portable technique and patient rotat ion. There is a large hiatal hernia. The heart is enlarged noting atherosclerotic calcification of th e thoracic aorta. There is mild pulmonary vascular congestion. Prominence along the right mediastinal contour likely corresponds to lymphadenopathy when correlated with the recent chest CT. There is chr onic elevation of the right hemidiaphragm with bibasilar scarring/atelectasis. No large pleural effus ion or pneumothorax is seen. The skeletal structures are osteopenic. The bony thorax is grossly intac t. IMPRESSION: 1. Cardiomegaly with mild pulmonary vascular congestion. 2. No airspace consolidation or large pleural effusion is identified. 3. Mediastinal lymphadenopathy is again noted. 4. Large hiatal hernia. ACT 112: Negative or not required by law. Electronically signed by: Kwan Gonzalez M.D. 10/23/2022 7:15 PM
[2022-10-23] MEDS ORDERED: 0.2 MICRON FILTER SET 1 EACH IV ONE (20:01)
[2022-10-23] MEDS ORDERED: PROMETHAZINE 6.25 MG/50.25 ML BAG IV STA (20:01)
[2022-10-23] MEDS: AMIODARONE / D5W 360 MG/200 ML BAG IV SCH (20:20)
[2022-10-23] MEDS ORDERED: LIDOCAINE/PRILOCAINE 2.5% EA CRM EXT PRN (22:35)
[2022-10-23] MEDS ORDERED: ALBUTEROL HFA 8 GM INHALER INH PRN (22:35)
[2022-10-23] MEDS ORDERED: traMADol HCL 50 MG TABLET PO PRN (22:35)
[2022-10-23] MEDS ORDERED: FLUTICASONE PROPIONATE NA SPR 16 GM BTL PRN (22:35)
[2022-10-23] MEDS ORDERED: NITROGLYCERIN SL 0.4 MG/TAB TAB SL PRN (22:35)
[2022-10-23] MEDS ORDERED: TRIAMCINOLONE ACET 0.025% CR 15 GM TUBE TOP PRN (23:03)
[2022-10-24] MEDS: AMIODARONE / D5W 360 MG/200 ML BAG IV SCH ×2 (02:35→10:09)
--- NOTE | 2022-10-24 02:50 | History & Physical Report ---
Date of Service October 23, 2022 Assessment & Plan (1) Rapid atrial fibrillation: Plan: 77F with Past medical history significant for diastolic dysfunction (EF 60%, TTE 2022), valvular heart disease (mild AR/MR/TR), LAUREN on CPAP, pulmonary hypertension, HTN, hyperlipidemia, ESRD on HD, bronchial asthma, DM2 diet- controlled, GERD, comes because of not feeling well and found to be in rapid A- fib. Rapid A-fib Received dose of IV diltiazem and IV Lopressor but not improved Blood pressure is okay ER currently started on amiodarone drip which will be continued Received another dose of IV Lopressor as heart rates are still persistently high Follow serial cardiac enzymes and echo Consult cardiology in a.m. for further recommendations Anticoagulation as per cardiology Monitor in telemetry floor End-stage renal disease On hemodialysis Next dialysis on Wednesday Will consult nephrology if required dialysis during the stay Anemia of chronic disease hb 11.5 will follow labs Chronic diastolic CHF Valvular heart disease Volume status by dialysis Obstructive sleep apnea CPAP with oxygen nightly Hypertension On amlodipine and Imdur Will monitor History of bronchial asthma Currently seems stable continue home inhalers Hyperlipidemia On statin GERD Pepcid Diabetes type [address] on insulin status scale follow hba1c levels DVT prophylaxis heparin subcu Disposition telemetry floor Full code Admission and Anticipated Discharge Date Admission Date: October 23, 2022 History of Present Illness Chief Complaint: Rapid A-fib Primary Care Provider: Alberto Yuen MD 77 f with Past medical history significant for diastolic dysfunction (EF 60%, TTE 2022), valvular heart disease (mild AR/MR/TR), LAUREN on CPAP, pulmonary hypertension, HTN, hyperlipidemia, ESRD on HD, bronchial asthma, DM2 diet- controlled, GERD, comes because of not feeling well and found to be in rapid A- fib. Patient was recently in the hospital for acute hypoxemic respiratory failure secondary to volume overload secondary to end-stage renal disease and she needed intubation and also required one unit PRBC. She was extubated October 05, 2022 volume status managed with dialysis. At the time of discharge she was not requiring oxygen. Initial plan was to discharge to rehab as there was no dialysis beds in rehab she was discharged home. She was doing fine today morning but at dialysis she was not feeling well having chills nauseous and seems dialysis was cut short as she was not feeling well. EMS was called. She was having irregular fast heart rate and 10 mg of IV diltiazem was given by the EMS with no significant improvement. In the ER a dose of IV Lopressor was given and he was not improving and was started amiodarone drip. Patient is currently sleeping. Daughter who is a physician is in the room. As per daughter there were no fevers, no chest pain no shortness of breath, no runny nose or sore throat, no diarrhea,. She is ambulating with a walker since her knee surgery as per daughter. When asked patient she states she is feeling better. Past medical history as mentioned above Past surgical history surgery for herniated disc. Left breast lesion excision, colonoscopy removal of left parotid gland. Partial removal of thyroid lobe. Appendectomy. Total abdominal hysterectomy removal of tubes Social history no smoking. No alcohol. No drug use Family history. Daughter had breast cancer. Brother has diabetes. Father had diabetes hypertension. Mother has hypertension. Sister has hypertension diabetes. Allergies Allergy/AdvReac Type Severity Reaction Status Date / Time pollen extracts Allergy Mild sneezing, Verified 10/23/22 19:18 watery eyes Home Medications Medication Instructions Recorded Confirmed Type atorvastatin 40 mg tablet 40 mg PO HS 11/10/18 10/23/22 History famotidine 20 mg tablet 20 mg PO AMHS 05/28/21 10/23/22 History lidocaine-prilocaine 2.5 %-2.5 % See Rx Instructions topical 05/28/21 10/23/22 History topical cream .COMPLEX nitroglycerin 0.4 mg sublingual 0.4 mg sublingual Q5M PRN Chest 05/28/21 10/23/22 History tablet (Nitrostat) Pain pantoprazole 40 mg tablet,delayed 40 mg PO DAILYBB 05/28/21 10/23/22 History release polyethylene glycol 3350 17 gram 17 g PO BID PRN Constipation 05/28/21 10/23/22 History oral powder packet (Miralax) triamcinolone acetonide 0.025 % 1 applic topical BID PRN Rash 05/28/21 10/23/22 History lotion fluticasone fur. 100 mcg-umeclid 1 inh inhalation QAM 10/14/21 10/23/22 History 62.5 mcg-vilant 25 mcg inhalat.powder (Trelegy Ellipta) albuterol sulfate 90 mcg/actuation 2 puff inhalation Q6 PRN Wheezing 01/26/22 10/23/22 History aerosol inhaler (Ventolin HFA) fluticasone propionate 50 2 spray intranasal QAM PRN Allergy 01/26/22 10/23/22 History mcg/actuation nasal Symptoms spray,suspension isosorbide mononitrate 30 mg 30 mg PO QAM 01/26/22 10/23/22 History tablet,extended release 24 hr ondansetron HCl 4 mg tablet 4 mg PO Q8 PRN Nausea 01/26/22 10/23/22 History sevelamer carbonate 800 mg tablet 1,600 mg PO TIDM 01/26/22 10/23/22 History (Renvela) vit B complx, C-iron 8 mg-folic 1 tab PO QAM 01/26/22 10/23/22 History acid 800 mcg-D3 1,000 unit-zinc tablet (ProRenal) amlodipine 2.5 mg tablet 2.5 mg PO QAM 06/15/22 10/23/22 History montelukast 5 mg chewable tablet 10 mg PO DAILY PRN allergies 09/08/22 10/23/22 History (Singulair) aspirin 81 mg tablet,delayed 81 mg PO DAILY 10/04/22 10/23/22 History release tramadol 50 mg tablet 50 mg PO DAILY PRN Pain #20 tabs 10/11/22 10/23/22 Rx Past Med/Surg History Medical History Anemia of chronic disease Aortic stenosis Mild aortic stenosis (ASHIL 1.3-1.4cm2, MG 15.3mmhg) per 03/2022 echo Asthma, moderate persistent AV fistula LUE Bilateral primary osteoarthritis of knee Chronic anemia Hx iron infusions Chronic anemia Diabetes mellitus diet controlled End-stage renal disease on hemodialysis MWF ([facility]) GERD (gastroesophageal reflux disease) Gout History of COVID-19 Most recent 10/2021 ([facility])- symptoms resolved Hyperlipidemia Hypertension Osteoarthritis of knees, bilateral RSV (respiratory syncytial virus pneumonia) Sleep apnea CPAP + 2L HS Surgical History H/O partial thyroidectomy H/O: hysterectomy SANDRA BSO History of appendectomy History of cardiac cath 2017 ([facility])- no stents History of cataract surgery History of cholecystectomy History of colonoscopy History of esophagogastroduodenoscopy (EGD) 10/2021 History of lumbar surgery History of oral surgery salivary gland surgery History of tooth extraction all teeth removed S/P arteriovenous (AV) fistula creation Status post biopsy of kidney kidney disease Family History Daughter Cancer Breast Daughter Cancer Breast Daughter Hypertension Daughter Hypertension Father Diabetes Hypertension Mother Hypertension Brother Diabetes Brother Diabetes Sister Diabetes Sister Diabetes Sister Hypertension Sister Hypertension Other No family history of adverse response to anesthesia Social History Smoking Status: Never smoker Second Hand Exposure: No; Do You Dip or Chew Tobacco: No; Hx Alcohol Use: No Hx Substance Use: No Preferred Language: Surinamese Communication Ability: Effective Communication Ability Comment: daughter states her mother can read/write/understand kiswahili Coding Manager Required: No Beliefs That Will Affect Care: None marital status: / Current Living Situation: Family Current Living Situation Comment: Lives with daughter Feels Safe at Home: Yes Assistive Devices: Cane, CPAP, Oxygen - at Night and Walker Review of Systems Review of Systems: Other reviewed with Daughter as patient sleeping and daughter didn't want patient to be woken up. Physical Exam Physical Exam: General- sleeping. Doesn't seem to be in distress. Head- atraumatic Eyes- PERRL. ENT- oropharynx clear Neck- supple, no JVD, no adenopathy, carotids +2/2, no bruits appreciated Lungs- clear to auscultation mild bibasilar crackles, no wheezing. Heart- irregular rhythm, tachycardia no murmur, no gallop. Abdomen- normal bowel sounds, soft, nontender, no distension. Extremities- no pretibial edema, no erythema seen. Neuro-sleepy; PERRL, EOMI; no facial palsy; no dysarthria; moves extremities. Skin- warm & dry Results & Data Results & Data Vital Signs (Past 12 Hours) Vital Signs Temp Pulse Pulse Resp BP BP Pulse Ox 10/23/22 22:00 116 H 10/23/22 20:33 124 H 18 114/93 91 10/23/22 19:04 130 H 132/71 10/23/22 18:22 134 H 10/23/22 18:33 127 H 20 93 10/23/22 18:25 37.0 C 125 H 20 108/76 93 10/23/22 18:25 93 10/23/22 18:25 37.0 C 125 H 20 108/76 93 O2 Del Method 10/23/22 22:00 10/23/22 20:33 Room Air 10/23/22 19:04 10/23/22 18:22 10/23/22 18:33 Room Air 10/23/22 18:25 Room Air 10/23/22 18:25 Room Air 10/23/22 18:25 Room Air Diagnostic Findings Laboratory Results WBC 8.62 K/ul (4.8-10.8) 10/23/22 18:24 RBC 4.27 M/uL (4.20-5.40) 10/23/22 18:24 Hgb 11.5 g/dl (12.0-16.0) L 10/23/22 18:24 Hct 36.8 % (37.0-47.0) L 10/23/22 18:24 MCV 86.2 fL (80.0-100.0) 10/23/22 18:24 MCH 26.9 pg (25.0-34.0) 10/23/22 18:24 MCHC 31.3 g/dL (32.0-36.0) L 10/23/22 18:24 RDW Std Deviation 51.5 fL (36.4-46.3) H 10/23/22 18:24 RDW Coeff of Luis 16.7 % (11.5-14.5) H 10/23/22 18:24 Plt Count 203 K/uL (130-400) 10/23/22 18:24 MPV 10.1 fL (9.4-12.4) 10/23/22 18:24 Immature Gran % (Auto) 0.3 % 10/23/22 18:24 Neut % (Auto) 77.0 % 10/23/22 18:24 Lymph % (Auto) 13.5 % 10/23/22 18:24 [place] % (Auto) 8.2 % 10/23/22 18:24 Eos % (Auto) 0.7 % 10/23/22 18:24 Baso % (Auto) 0.3 % 10/23/22 18:24 Neut # (Auto) 6.63 K/uL (1.40-6.50) H 10/23/22 18:24 Lymph # (Auto) 1.16 K/uL (1.20-3.40) L 10/23/22 18:24 [place] # (Auto) 0.71 K/uL (0.11-0.59) H 10/23/22 18:24 Eos # (Auto) 0.06 K/uL (0.00-0.50) 10/23/22 18:24 Baso # (Auto) 0.03 K/uL (0.00-0.20) 10/23/22 18:24 Immature Gran # (Auto) 0.03 K/uL (0.01-0.20) 10/23/22 18:24 Absolute Nucleated RBC 0.02 K/uL (0.00-0.12) 10/23/22 18: Nucleated RBC % (auto) 0.2 % 10/23/22 18:24 Sodium 137 mmol/L (136-145) 10/23/22 18:24 Potassium 4.6 mmol/L (3.5-5.1) 10/23/22 18:24 Chloride 93 mmol/L (98-107) L 10/23/22 18:24 Carbon Dioxide 35 mmol/L (21-32) H 10/23/22 18:24 Anion Gap 9 (3-11) 10/23/22 18:24 BUN 22 mg/dl (6-23) 10/23/22 18:24 Creatinine 4.46 mg/dl (0.6-1.2) H 10/23/22 18:24 Est Cr Clr Drug Dosing 8.9 ml/min 10/23/22 18:24 Est GFR ( Amer) 10.3 ml/min 10/23/22 18:24 Est GFR (Non-Af Amer) 8.9 ml/min 10/23/22 18:24 BUN/Creatinine Ratio 4.9 (10-20) L 10/23/22 18:24 Glucose 104 mg/dl (70-99(Fasting)) H 10/23/22 18:24 Calcium 9.0 mg/dl (8.6-10.3) 10/23/22 18:24 Magnesium 2.0 mg/dl (1.7-2.4) 10/23/22 18:24 Total Bilirubin 0.5 mg/dl (0.2-1.0) 10/23/22 18:24 AST 18 U/L (13-39) 10/23/22 18:24 ALT 11 U/L (7-52) 10/23/22 18:24 Alkaline Phosphatase 141 U/L (34-104) H 10/23/22 18:24 Troponin I High Sens 45.9 pg/ml (0-14) H 10/23/22 20:06 Total Protein 7.5 gm/dl (6.0-8.3) 10/23/22 18:24 Albumin 4.1 gm/dl (3.4-5.0) 10/23/22 18:24 Globulin 3.4 gm/dl (2.5-4.0) 10/23/22 18:24 Albumin/Globulin Ratio 1.2 (0.9-2) 10/23/22 18:24 Lipase 59 U/L (11-82) 10/23/22 18:24 TSH 1.838 uIu/ml (0.300-4.500) 10/23/22 18:24 SARS-CoV-2, RNA, NAAT NEGATIVE (NEGATIVE) 10/23/22 19:11 Impressions Chest X-Ray 10/23/22 18:26 SINGLE VIEW CHEST CLINICAL HISTORY: Generalized weakness. FINDINGS: An AP, portable, upright chest radiograph is compared to study dated 10/06/2022 and correlated with chest CT dated 10/05/2022. The examination is degraded by portable technique and patient rotation. There is a large hiatal hernia. The heart is enlarged noting atherosclerotic calcification of the thoracic aorta. There is mild pulmonary vascular congestion. Prominence along the right mediastinal contour likely corresponds to lymphadenopathy when correlated with the recent chest CT. There is chronic elevation of the right hemidiaphragm with bibasilar scarring/atelectasis. No large pleural effusion or pneumothorax is seen. The skeletal structures are osteopenic. The bony thorax is grossly intact. IMPRESSION: 1. Cardiomegaly with mild pulmonary vascular congestion. 2. No airspace consolidation or large pleural effusion is identified. 3. Mediastinal lymphadenopathy is again noted. 4. Large hiatal hernia. ACT 112: Negative or not required by law. Electronically signed by: Kwan Gonzalez M.D. 10/23/2022 7:15 PM ECG Additional Comments: ECG A-fib with rapid ventricular response with a rate of 134. Left anterior fascicular block. Code Status & VTE Plan VTE Prophylaxis Plan VTE Prophylaxis will be ordered: Yes
[2022-10-24] MEDS ORDERED: GLUCAGON FOR INJ 1 MG VIAL SQ PRN (03:07)
[2022-10-24] MEDS ORDERED: GLUCOSE 40% GEL 15 GM TUBE PO PRN (03:07)
[2022-10-24] MEDS ORDERED: CARBOHYDRATES FOR HYPOGLYCEMIA PO PRN (03:07)
[2022-10-24] MEDS ORDERED: GLUCOSE 10 TAB/TUBE PO PRN (03:07)
[2022-10-24] MEDS ORDERED: DEXTROSE 50% 50 ML SYRINGE IV PRN (03:07)
[2022-10-24] MEDS: INSULIN ASPART PER UNIT CHARGE SC SCH ×4 (05:22→23:19)
[2022-10-24] MEDS ORDERED: Nursing to Pharmacy Communication SCH ×2 (05:30→20:45)
[2022-10-24] MEDS ORDERED: HEPARIN SOD 5,000 UNIT/0.5 ML VIAL SQ SCH (06:00)
[2022-10-24 06:09] LABS: Basophils # (auto) 0.05 K/uL (0.00-0.20); Basophils % (auto) 0.8 %; Eosinophils # (auto) 0.16 K/uL (0.00-0.50); Eosinophils % (auto) 2.5 %; Hematocrit (blood only) 34.1 % (37.0-47.0); Hemoglobin 10.6 g/dl (12.0-16.0); Immature Granulocytes # (auto) 0.02 K/uL (0.01-0.20); Immature Granulocytes % (auto) 0.3 %; Lymphocytes # (auto) 1.54 K/uL (1.20-3.40); Lymphocytes % (auto) 23.8 %; Mean Corpuscular Hgb Conc 31.1 g/dL (32.0-36.0); Mean Corpuscular Volume 86.8 fL (80.0-100.0); Mean Platelet Volume 10.2 fL (9.4-12.4); Monocytes # (auto) 0.61 K/uL (0.11-0.59); Monocytes % (auto) 9.4 %; Neutrophils # (auto) 4.09 K/uL (1.40-6.50); Neutrophils % (auto) 63.2 %; Nucleated RBC # (auto) 0.02 K/uL (0.00-0.12); Nucleated RBC % (auto) 0.3 %; Platelet Count 169 K/uL (130-400); RDW Coefficient of Variation 16.4 % (11.5-14.5); RDW Standard Deviation 51.6 fL (36.4-46.3); Red Blood Count 3.93 M/uL (4.20-5.40); White Blood Count 6.47 K/ul (4.8-10.8)
[2022-10-24] MEDS ORDERED: PANTOprazole 40 MG TAB PO SCH (06:30)
[2022-10-24 06:31] LABS: BUN Creatinine Ratio 5.3 (10-20); Calcium 8.3 mg/dl (8.6-10.3); Creatinine Clr Calc Pharmacy 7.4 ml/min; Est GFR (African American) 8.4 ml/min; Est GFR (Non-African American) 7.2 ml/min; Magnesium 2.1 mg/dl (1.7-2.4); Potassium 4.8 mmol/L (3.5-5.1)
[2022-10-24] MEDS ORDERED: METOPROLOL TARTRATE 25 MG TAB PO ONE (06:49)
--- NOTE | 2022-10-24 08:22 | Cardiology Progress Note ---
Date of Service October 24, 2022 Assessment & Plan (1) Rapid atrial fibrillation: Plan: - Patient with new onset atrial fibrillation. She is less than 2 months removed from total right knee replacement which took place on 09/08/2022, and then had a recent ICU stay requiring emergent endotracheal tube intubation for respiratory insufficiency due to volume overload, improved with hemodialysis. -Although she has a history of what appears to be postoperative anemia after orthopedic surgery as well as anemia of chronic disease related to renal insufficiency, her hemoglobin is relatively stable at present. Her [id number] score is at least 3 given risk factors of female sex, age over 75, and history of hypertension. -I discussed her case by phone with her daughter who is a physician. My advice would be to proceed with cautious anticoagulation, heparin, low-dose protocol, without bolus for stroke prophylaxis. -Given her risk factors, I would also recommend proceeding with a lower extremity venous duplex which I have ordered. I am going to discuss with the primary team that perhaps a CT angiogram pulmonary embolism protocol should be considered. Given the need for contrast bolus, this would need to be timed appropriately with regards to her volume status and dialysis. -Her TSH and LFTs are stable. Continue amiodarone for rate control at present. Her metoprolol succinate, 75 mg daily is on hold, and she is on metoprolol tartrate 25 mg by mouth every 6 hours for now which will be titrated as necessary. -Her echocardiogram was reviewed on a preliminary basis, with preserved ejection fraction, severe left atrial enlargement noted. Admission and Anticipated Discharge Date Admission Date: October 23, 2022 Falguni Ward is a 77-year-old female seen in cardiology consultation per the request of Dr. Joseph for evaluation of new onset atrial fibrillation with rapid ventricular response. The patient presented for outpatient dialysis yesterday and was reportedly not feeling well with chills and nauseousness and therefore her dialysis session was ended prematurely. She was noted to have a fast irregular heart rate. She presented to the emergency department where EKG revealed atrial fibrillation with rapid ventricular response 134 bpm. She received IV metoprolol 5 mg x 2 doses with improved heart rates. Per my discussion with Dr Baron by telephone last evening, the patient was placed on an amiodarone infusion and admitted to the telemetry floor. Review of telemetry, she remains in atrial fibrillation with rate ranging between 100 to 115 bpm at rest. At present she is in no acute distress. The patient has an underlying history of end-stage renal disease. She is followed by Dr. Schrader and undergoes dialysis 3 days/week. From cardiac perspective, she has a history of diastolic dysfunction and valvular heart disease. She underwent a preoperative dobutamine stress echocardiogram as an outpatient in July, with LVEF of 55 to 59%, mild concentric left ventricular hypertrophy, grade 2 diastolic dysfunction, mild aortic valve stenosis, mild aortic valve regurgitation, mild mitral regurgitation, mild tricuspid regurgitation. She went on to be hospitalized in August, for right total knee replacement with noted shortness of breath postoperatively and episodes of tachycardia. She was followed by Dr. Adrian of our practice during that hospital stay and EKG/telemetry findings were consistent with multifocal atrial tachycardia. Per review of records from that stay her hemoglobin was as low as 7.8 postoperatively and she received transfusion, she was transition to metoprolol succinate at a dose of 75 mg twice daily, and her isosorbide mononitrate dose was titrated to 60 mg daily. Her Hgb was 7.7 g/dL last admission and received transfusion. She was readmitted in September, with acute respiratory failure due to volume overload that required emergent endotracheal tube intubation and dialysis. The discharge summary from that hospital stay describes her being on Imdur 60 as well as metoprolol succinate 75 mg twice daily. Her admission medication list however includes Imdur 30 mg daily, and no metoprolol per my review however the patient's daughter states that she has been taking the metoprolol succinate 75 mg twice daily, and isosorbide mononitrate 30 mg daily. Review of Systems Review of Systems: All systems reviewed & are unremarkable except as noted in HPI & below Physical Exam Constitutional: WD/WN, vitals as above Respiratory: Mildly decreased breath sounds at the bases Cardiovascular: Rate/Rhythm: + tachycardic and + irregularly irregular Heart Sounds: + murmur (1/6 systolic murmur) Extremities: + AV fistula (Left upper extremity AV fistula with appropriate auscultative sounds); no edema Gastrointestinal (Abdomen): normal bowel sounds, soft, nontender, no hepatosplenomegaly Neurologic: PERRL, EOMI, accommodation nl, no face palsy, no dysarthria Results & Data Vital Signs (Past 12 Hours) Vital Signs Temp Pulse Pulse Resp BP BP Pulse Ox 10/24/22 07:59 37.2 C 115 H 18 120/74 90 10/24/22 05:48 93 10/24/22 02:30 98 H 10/24/22 05:40 109 H 134/82 10/24/22 04:04 105 H 14 121/68 90 10/24/22 00:42 110 H 118/67 10/24/22 00:26 114 H 125/57 L 10/23/22 23:29 124 H 134/85 10/23/22 23:08 36.7 C 130 H 16 88/67 L 90 10/23/22 22:35 115 H 10/23/22 22:35 10/23/22 22:35 36.7 C 130 H 16 88/67 L 90 10/23/22 22:00 116 H 10/23/22 20:33 124 H 18 114/93 91 O2 Del Method 10/24/22 07:59 Room Air 10/24/22 05:48 Room Air 10/24/22 02:30 10/24/22 05:40 10/24/22 04:04 Room Air 10/24/22 00:42 10/24/22 00:26 10/23/22 23:29 10/23/22 23:08 Room Air 10/23/22 22:35 10/23/22 22:35 Room Air 10/23/22 22:35 Room Air 10/23/22 22:00 10/23/22 20:33 Room Air Laboratory Results Cardiac Enzymes 10/23/22 10/23/22 10/24/22 Range/Units 18:24 20:06 05:13 AST 18 (13-39) U/L Troponin I High Sens 43.1 H 45.9 H 44.4 H (0-14) pg/ml CBC 10/23/22 10/24/22 Range/Units 18:24 05:13 WBC 8.62 6.47 (4.8-10.8) K/ul RBC 4.27 3.93 L (4.20-5.40) M/uL Hgb 11.5 L 10.6 L (12.0-16.0) g/dl Hct 36.8 L 34.1 L (37.0-47.0) % Plt Count 203 169 (130-400) K/uL Neut # (Auto) 6.63 H 4.09 (1.40-6.50) K/uL Lymph # (Auto) 1.16 L 1.54 (1.20-3.40) K/uL [place] # (Auto) 0.71 H 0.61 H (0.11-0.59) K/uL Eos # (Auto) 0.06 0.16 (0.00-0.50) K/uL Baso # (Auto) 0.03 0.05 (0.00-0.20) K/uL Comprehensive Metabolic Panel 10/23/22 10/24/22 Range/Units 18:24 05:13 Sodium 137 138 (136-145) mmol/L Potassium 4.6 4.8 (3.5-5.1) mmol/L Chloride 93 L 94 L (98-107) mmol/L Carbon Dioxide 35 H 34 H (21-32) mmol/L BUN 22 28 H (6-23) mg/dl Creatinine 4.46 H 5.30 H* D (0.6-1.2) mg/dl Glucose 104 H 99 (70-99(Fasting)) mg/dl Calcium 9.0 8.3 L (8.6-10.3) mg/dl AST 18 (13-39) U/L ALT 11 (7-52) U/L Alkaline Phosphatase 141 H (34-104) U/L Total Protein 7.5 (6.0-8.3) gm/dl Albumin 4.1 (3.4-5.0) gm/dl Intake and Output 10/23/22 10/24/22 10/24/22 22:59 06:59 14:59 Intake Total 50.25 / 250.25 200 / 250.25 Balance 50.25 / 250.25 200 / 250.25 Intake: IV 50.25 / 250.25 200 / 250.25 Amiodarone / D5w 360 mg In 200 200 / 200 ml @ 1 MG/MIN 33.333 mls/hr IV .Q6H RIVAS Rx#:[id number] Promethazine 6.25 mg In 50.25 50.25 / 50.25 ml @ 201 mls/hr IV NOW STA Rx#: [id number] Other: Weight 64.3 kg 64.3 kg Weight Measurement Method [facility] Diagnostic Findings EKG performed today 10/24/2022 at 6:17 AM, interpreted dependently: Atrial fibrillation at 118 bpm, nonspecific repolarization abnormalities, compared to the previous tracing from last evening, the ventricular rate has improved. Chest x-ray: Summary of radiology report, enlargement of cardiac silhouette with mild pulmonary vascular congestion, no pleural effusion, mediastinal lymphadenopathy noted, large hiatal hernia
[2022-10-24] MEDS: PANTOprazole 40 MG TAB PO SCH (08:31)
[2022-10-24] MEDS: SEVELAMER HCL 800 MG TABLET PO SCH ×3 (08:32→17:36)
[2022-10-24] MEDS: amLODIPine BESYLATE 5 MG TAB PO SCH (08:33)
[2022-10-24] MEDS: FAMOTIDINE 20 MG TAB PO SCH ×2 (08:34→20:16)
[2022-10-24] MEDS: ASPIRIN 81 MG ECTAB PO SCH (08:34)
[2022-10-24] MEDS: NEPHROCAPS PO SCH (08:35)
[2022-10-24] MEDS: ISOSORBIDE MONO EXTENDED REL 30 MG TABCR PO SCH (08:35)
[2022-10-24] MEDS: UMECLIDINIUM/VILANTEROL 62.5/25MCG 7 PUFFS/INHALER INH SCH (08:35)
[2022-10-24] MEDS: FLUTICASONE FUROATE 100MCG 14 PUFFS/INHALER INH SCH (08:35)
[2022-10-24] MEDS ORDERED: Heparin IV Adult Wt-Based Low-Dose *NO* Bolus Protocol IV STA (08:50)
[2022-10-24] MEDS ORDERED: NON-FORMULARY MEDICATION (Fluticasone-Umeclidin-Vilanter [Trelegy Ellipta] 100-62.5-25 mcg INH SCH (09:00)
--- NOTE | 2022-10-24 09:55 | Hospitalist Progress Note ---
Date of Service October 24, 2022 Assessment & Plan (1) Rapid atrial fibrillation: Plan: 77F with Past medical history significant for diastolic dysfunction (EF 60%, TTE 2022), valvular heart disease (mild AR/MR/TR), LAUREN on CPAP, pulmonary hypertension, HTN, hyperlipidemia, ESRD on HD, bronchial asthma, DM2 diet- controlled, GERD, comes because of not feeling well and found to be in rapid A- fib. Atrial fibrillation with RVR History of ESRD on HD, diastolic dysfunction, MAT. Underwent dialysis on the day of presentation; was found to have elevated heart rate; came to the ED. EKG on admission reviewed personally; atrial fibrillation with RVR; ventricular rate of 118. Was given dose of IV Cardizem and Lopressor; no improvement in heart rate. Currently on amiodarone drip as per cardiology. Also on heparin drip for anticoagulation. Lower extremity Doppler ordered to rule out DVT; will follow. Discussed with nephrology regarding CTA PE; can be done urgently if needed; better to wait till Wednesday before hemodialysis. Continue to monitor on telemetry. End-stage renal disease On hemodialysis Next dialysis on Wednesday Chest x-ray on admission personally reviewed; has pulmonary vascular congestion. She is on amiodarone and heparin drip. Nephrology on board; will reach out to nephrology if patient will require earlier dialysis. Anemia of chronic disease hb 11.5 will follow labs Chronic diastolic CHF Valvular heart disease Cardiology on board; currently on Amio and heparin drip for A-fib. Obstructive sleep apnea CPAP with oxygen nightly Hypertension On amlodipine and Imdur Will monitor History of bronchial asthma Currently seems stable continue home inhalers Hyperlipidemia On statin GERD Pepcid Diabetes type [address] on insulin status scale follow hba1c levels DVT prophylaxis heparin drip Time spent evaluating patient, direct bedside care, chart review, placing orders, interpretation of diagnostic studies, discussion with consultants, patient, and family members, as well as other required patient management activities is 60 minutes Please note the above document was generated using voice recognition software. It may contain grammatical, syntax or spelling errors. Any formal questions or concerns about the content, text or information contained within the body of this dictation should be directly addressed to the provider for clarification Admission and Anticipated Discharge Date Admission Date: October 23, 2022 Subjective Patient seen and examined at bedside. She is sitting up on the bed comfortably; not in any distress. Denies any shortness of breath or chest pain. Review of Systems Review of Systems: All systems reviewed & are unremarkable except as noted in Subjective Physical Exam Physical Exam: Constitutional: Alert orient x3; not in distress. Respiratory: Bilateral vesicular breath sound Cardiovascular: Irregular, no murmur, no edema Vessels: no JVD or carotid bruit Chest: normal inspection of chest Abdomen: normal bowel sounds, soft, nontender, no hepatosplenomegaly Musculoskeletal: no cyanosis or clubbing, extremities motor strength 5/5. Left AV fistula present. Skin: no rashes, warm and dry normal turgor Neurologic: PERRL, EOMI, accommodation nl, no face palsy, no dysarthria CN's II- XI intact bilaterally and moves all extremities Psychiatric: A+Ox3, euthymic affect Results & Data Results & Data Vital Signs (Past 12 Hours) Vital Signs Temp Pulse Pulse Resp BP BP Pulse Ox 10/24/22 08:46 106 H 10/24/22 08:46 10/24/22 07:59 37.2 C 115 H 18 120/74 90 10/24/22 05:48 93 10/24/22 02:30 98 H 10/24/22 05:40 109 H 134/82 10/24/22 04:04 105 H 14 121/68 90 10/24/22 00:42 110 H 118/67 10/24/22 00:26 114 H 125/57 L 10/23/22 23:29 124 H 134/85 10/23/22 23:08 36.7 C 130 H 16 88/67 L 90 10/23/22 22:35 115 H 10/23/22 22:35 10/23/22 22:35 36.7 C 130 H 16 88/67 L 90 10/23/22 22:00 116 H O2 Del Method O2 Flow Rate 10/24/22 08:46 10/24/22 08:46 Nasal Cannula 2 10/24/22 07:59 Room Air 10/24/22 05:48 Room Air 10/24/22 02:30 10/24/22 05:40 10/24/22 04:04 Room Air 10/24/22 00:42 10/24/22 00:26 10/23/22 23:29 10/23/22 23:08 Room Air 10/23/22 22:35 10/23/22 22:35 Room Air 10/23/22 22:35 Room Air 10/23/22 22:00
[2022-10-24] MEDS: HEPARIN SODIUM/DEXTROSE 25,000 UNITS/500 ML BAG IV SCH (10:09)
[2022-10-24 10:46] LABS: INR 1.1 (0.9-1.1); Partial Thromboplastin Ratio 1.2; Partial Thromboplastin Time 32.5 Seconds (21.0-31.0); Prothrombin Time 11.5 Seconds (9.0-12.0)
[2022-10-24] MEDS: METOPROLOL TARTRATE 50 MG TAB PO SCH ×3 (12:05→20:16)
[2022-10-24] MEDS ORDERED: METOPROLOL TARTRATE 25 MG TAB PO SCH (13:00)
--- NOTE | 2022-10-24 15:24 | Nephrology Consultation ---
Date of Consultation October 24, 2022 Assessment & Plan (1) Rapid atrial fibrillation: * On Amiodarone and Heparin gtt * POC discussed w/ Dr. Womack this morning. Patient is on anticoagulation. CTA can be performed Wednesday. Await LE doppler study results * TSH was checked and found to be wnl (2) End-stage renal disease on hemodialysis: * Last HD yesterday. EDW has been reduced to 62 kg in the outpatient setting * Currently euvolemic. Patient is breathing comfortably on O2 at 2 L/min NC. Electrolyte balance is acceptable. POC discussed w/ Cardiology. Will hold HD until HR is controlled. Patient's daughter (Jenny) updated by telephone (3) Anemia: * Hgb is within target 10-11 g/dL range * Will order iron studies w/ am lab (4) Sleep apnea: * Nocturnal CPAP as per primary service History of Present Illness Reason for Consultation: ESKD-D Attending Physician: Fernandez Mcneal MD History of Present Illness Ms. Ward is a 77 year old female who is seen at the request of the hospitalist service to provide HD. Information for the HPI is obtained from patient interview and review of the EMR. HPI is summarized as follows: 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 She has been on HD since 03/11 and dialyzes at [facility] (MWF 3.25 hr, F-180NR, Qb 350/Qd 600, 2K 2Ca, Na137, HCO3 36, EDW 62kg, heparin 1500 unit loading dose, L BC AVF). Her medical history is significant for complex cyst involving R kidney, thyroid cyst w/ tracheal deviation, AODM, HTN, LAUREN requiring nocturnal CPAP, hypercholesterolemia, gout, osteoporosis, anemia, pulmonary HTN. Ms. Ward underwent R TKA 09/08/22. Post- op course was complicated by anemia w/ Hgb 7.7. Patient later developed CHF requiring hospitalization 10/04/22-10/11/22 for airway support, blood transfusion and HD. Ms. Ward presented to dialysis 10/23/22. direct care staffer noted that she was in atrial fibrillation but hemodynamically stable. Treatment was ended after 2hr 45 min due to palpitations and rigors. EMS was called and patient transported to [facility]. ECG revealed atrial fibrillation w/ HR 118 bpm. She was given IV Metoprolol and started on Amiodarone therapy. Cardiology has completed an echocardiogram: LVEF 55%, mild MR, mild pHTN w/ PASP 42 mm Hg. Heparin gtt has been initiated. LE doppler and CTA recommended to assess for possible PE. Allergies Allergy/AdvReac Type Severity Reaction Status Date / Time pollen extracts Allergy Mild sneezing, Verified 10/23/22 19:18 watery eyes Home Medications Medication Instructions Recorded Confirmed Type atorvastatin 40 mg tablet 40 mg PO HS 11/10/18 10/23/22 History famotidine 20 mg tablet 20 mg PO AMHS 05/28/21 10/23/22 History lidocaine-prilocaine 2.5 %-2.5 % See Rx Instructions topical 05/28/21 10/23/22 History topical cream .COMPLEX nitroglycerin 0.4 mg sublingual 0.4 mg sublingual Q5M PRN Chest 05/28/21 10/23/22 History tablet (Nitrostat) Pain pantoprazole 40 mg tablet,delayed 40 mg PO DAILYBB 05/28/21 10/23/22 History release polyethylene glycol 3350 17 gram 17 g PO BID PRN Constipation 05/28/21 10/23/22 History oral powder packet (Miralax) triamcinolone acetonide 0.025 % 1 applic topical BID PRN Rash 05/28/21 10/23/22 History lotion fluticasone fur. 100 mcg-umeclid 1 inh inhalation QAM 10/14/21 10/23/22 History 62.5 mcg-vilant 25 mcg inhalat.powder (Trelegy Ellipta) albuterol sulfate 90 mcg/actuation 2 puff inhalation Q6 PRN Wheezing 01/26/22 10/23/22 History aerosol inhaler (Ventolin HFA) fluticasone propionate 50 2 spray intranasal QAM PRN Allergy 01/26/22 10/23/22 History mcg/actuation nasal Symptoms spray,suspension isosorbide mononitrate 30 mg 30 mg PO QAM 01/26/22 10/23/22 History tablet,extended release 24 hr ondansetron HCl 4 mg tablet 4 mg PO Q8 PRN Nausea 01/26/22 10/23/22 History sevelamer carbonate 800 mg tablet 1,600 mg PO TIDM 01/26/22 10/23/22 History (Renvela) vit B complx, C-iron 8 mg-folic 1 tab PO QAM 01/26/22 10/23/22 History acid 800 mcg-D3 1,000 unit-zinc tablet (ProRenal) amlodipine 2.5 mg tablet 2.5 mg PO QAM 06/15/22 10/23/22 History montelukast 5 mg chewable tablet 10 mg PO DAILY PRN allergies 09/08/22 10/23/22 History (Singulair) aspirin 81 mg tablet,delayed 81 mg PO DAILY 10/04/22 10/23/22 History release tramadol 50 mg tablet 50 mg PO DAILY PRN Pain #20 tabs 10/11/22 10/23/22 Rx Patient History Medical History Anemia of chronic disease Aortic stenosis Mild aortic stenosis (ASHLI 1.3-1.4cm2, MG 15.3mmhg) per 03/2022 echo Asthma, moderate persistent AV fistula LUE Bilateral primary osteoarthritis of knee Chronic anemia Hx iron infusions Chronic anemia Diabetes mellitus diet controlled End-stage renal disease on hemodialysis MWF ([facility]) GERD (gastroesophageal reflux disease) Gout History of COVID-19 Most recent 10/2021 ([facility])- symptoms resolved Hyperlipidemia Hypertension Osteoarthritis of knees, bilateral RSV (respiratory syncytial virus pneumonia) Sleep apnea CPAP + 2L HS Surgical History H/O partial thyroidectomy H/O: hysterectomy SANDRA BSO History of appendectomy History of cardiac cath 2017 ([facility])- no stents History of cataract surgery History of cholecystectomy History of colonoscopy History of esophagogastroduodenoscopy (EGD) 10/2021 History of lumbar surgery History of oral surgery salivary gland surgery History of tooth extraction all teeth removed S/P arteriovenous (AV) fistula creation Status post biopsy of kidney kidney disease Family History Daughter Cancer Breast Daughter Cancer Breast Daughter Hypertension Daughter Hypertension Father Diabetes Hypertension Mother Hypertension Brother Diabetes Brother Diabetes Sister Diabetes Sister Diabetes Sister Hypertension Sister Hypertension Other No family history of adverse response to anesthesia Social History Smoking Status: Never smoker Second Hand Exposure: No; Do You Dip or Chew Tobacco: No; Hx Alcohol Use: No Hx Substance Use: No Preferred Language: Thai Communication Ability: Effective Communication Ability Comment: daughter states her mother can read/write/understand kyrgyz Veneer Puller Required: No Beliefs That Will Affect Care: None marital status: / Current Living Situation: Family Current Living Situation Comment: Lives with daughter Feels Safe at Home: Yes Assistive Devices: Cane, CPAP, Oxygen - at Night and Walker Review of Systems Constitutional: no fever Eyes: no problem reported Ear, Nose, Mouth, Throat: no problem reported Respiratory: no cough and no dyspnea Cardiovascular: no chest pain Gastrointestinal: no abdominal pain, no vomiting and no diarrhea/loose stools Physical Exam Constitutional: + frail appearing; not in distress Eyes: PERRL, conjunctivae normal, anicteric sclerae ENMT: external ear and nose normal, oropharynx normal Neck: large palpable goiter Respiratory: normal respiratory effort, lungs clear to auscultation Cardiovascular: Rate/Rhythm: + irregularly irregular Extremities: + AV fistula (+ bruit) Gastrointestinal (Abdomen): normal bowel sounds, soft, nontender, no hepatosplenomegaly Neurologic: Speech / Cognition: normal speech and normal cognition Psychiatric: Affect: euthymic affect Results & Data Vital Signs (Past 12 Hours) Vital Signs Temp Pulse Pulse Resp BP Pulse Ox O2 Del Method 10/24/22 12:03 105 H 18 107/76 Nasal Cannula 10/24/22 10:05 100 H 20 116/72 10/24/22 11:41 36.9 C 115 H 18 100/72 99 Nasal Cannula 10/24/22 08:46 106 H 10/24/22 08:46 Nasal Cannula 10/24/22 07:59 37.2 C 115 H 18 120/74 90 Room Air 10/24/22 05:48 93 Room Air 10/24/22 05:40 109 H 134/82 10/24/22 04:04 105 H 14 121/68 90 Room Air O2 Flow Rate 10/24/22 12:03 2 10/24/22 10:05 10/24/22 11:41 2 10/24/22 08:46 10/24/22 08:46 2 10/24/22 07:59 10/24/22 05:48 10/24/22 05:40 10/24/22 04:04 Laboratory Results Laboratory Tests 10/24/22 10/24/22 10/24/22 05:13 05:13 05:13 WBC 6.47 Hgb 10.6 L Hct 34.1 L Plt Count 169 Sodium 138 Potassium 4.8 Chloride 94 L Carbon Dioxide 34 H BUN 28 H Creatinine 5.30 H* D Glucose 99 Calcium 8.3 L Magnesium 2.1 Troponin I High Sens 44.4 H Diagnostic Findings Telemetry: Atrial fibrillation/flutter w/ HR 100-120 bpm 10/23/22 CXR: 1. Cardiomegaly with mild pulmonary vascular congestion. 2. No airspace consolidation or large pleural effusion is identified. 3. Mediastinal lymphadenopathy is again noted. 4. Large hiatal hernia. PG Care Time/CCT Total # of Minutes Spent Total Time Spent with Patient: Total time spent is greater than 50% in coordination of care (as documented) at patient's floor/unit and/or counseling patient: Coding Level of Care Code 48278 IN/OBS CONSULT LVL 5,80M Diagnoses Rapid atrial fibrillation I48.91 End-stage renal disease on hemodialysis N18.6; Z99.2 Anemia D64.9 Anemia type: unspecified type Sleep apnea G47.30 (3) Anemia Anemia type: unspecified type Qualified Code(s): D64.9 - Anemia, unspecified
[2022-10-24 17:48] LABS: Partial Thromboplastin Ratio 1.6
[2022-10-24 18:16] LABS: Partial Thromboplastin Time 45.4 Seconds (21.0-31.0)
[2022-10-24] MEDS: ATORVASTATIN 40 MG TAB PO SCH (20:16)
[2022-10-24] MEDS: POLYETHYLENE (MIRALAX) 17 GM PACK PO PRN (22:00)
[2022-10-25] MEDS: AMIODARONE / D5W 360 MG/200 ML BAG IV SCH ×3 (02:00→18:12)
[2022-10-25] MEDS: ONDANSETRON INJ 2 MG/ML 2 ML VIAL IV PRN (04:30)
[2022-10-25 06:24] LABS: Basophils # (auto) 0.03 K/uL (0.00-0.20); Basophils % (auto) 0.4 %; Eosinophils # (auto) 0.31 K/uL (0.00-0.50); Eosinophils % (auto) 4.3 %; Hematocrit (blood only) 35.5 % (37.0-47.0); Hemoglobin 10.9 g/dl (12.0-16.0); Immature Granulocytes # (auto) 0.02 K/uL (0.01-0.20); Immature Granulocytes % (auto) 0.3 %; Lymphocytes % (auto) 16.6 %; Mean Corpuscular Hemoglobin 26.6 pg (25.0-34.0); Mean Corpuscular Hgb Conc 30.7 g/dL (32.0-36.0); Mean Corpuscular Volume 86.6 fL (80.0-100.0); Mean Platelet Volume 10.5 fL (9.4-12.4); Monocytes # (auto) 0.57 K/uL (0.11-0.59); Monocytes % (auto) 7.9 %; Neutrophils # (auto) 5.08 K/uL (1.40-6.50); Neutrophils % (auto) 70.5 %; Platelet Count 164 K/uL (130-400); RDW Coefficient of Variation 15.8 % (11.5-14.5); RDW Standard Deviation 49.5 fL (36.4-46.3); White Blood Count 7.21 K/ul (4.8-10.8)
[2022-10-25 07:07] LABS: BUN Creatinine Ratio 6.7 (10-20); Calcium 8.5 mg/dl (8.6-10.3); Creatinine Clr Calc Pharmacy 5.9 ml/min; Est GFR (African American) 6.3 ml/min; Est GFR (Non-African American) 5.4 ml/min
[2022-10-25 07:43] LABS: Partial Thromboplastin Ratio 1.6
[2022-10-25 07:44] LABS: Partial Thromboplastin Time 44.4 Seconds (21.0-31.0)
[2022-10-25] MEDS: INSULIN ASPART PER UNIT CHARGE SC SCH ×4 (07:53→20:54)
--- NOTE | 2022-10-25 08:29 | Nephrology Progress Note ---
Date of Service October 25, 2022 Assessment & Plan (1) Rapid atrial fibrillation: Plan: * On Amiodarone and Heparin gtt * POC discussed w/ Dr. Womack this morning. Patient remains on anticoagulation. CTA can be performed Wednesday am. LE doppler 10/25/22 was negative for DVT * 10/23/22 TSH 1.8 (2) End-stage renal disease on hemodialysis: Plan: * EDW has been reduced to 62 kg in the outpatient setting * Patient received 500 cc volume overnight. Lungs are CTA on exam but CXR does reveal worsening pulmonary edema * Will schedule HD today for 3 hours and UF to EDW 62 kg. Orders have been entered into the EMR and HD RN notified. POC discussed w/ Cardiology and patient's daughter (Jenny) updated by telephone this am (3) Anemia: Plan: * Hgb is within target 10-11 g/dL range * Will order iron studies w/ am lab (4) Sleep apnea: Plan: * Nocturnal CPAP as per primary service Admission and Anticipated Discharge Date Admission Date: October 23, 2022 Subjective Ms. Ward was evaluated in her hospital room this morning. She was breathing comfortably on O2 at 2L/min NC. Ms. Ward denied dyspnea, angina or palpitations Review of Systems Constitutional: no fever Eyes: no problem reported Ear, Nose, Mouth, Throat: no problem reported Respiratory: no cough and no dyspnea Cardiovascular: no chest pain Gastrointestinal: no abdominal pain, no vomiting and no diarrhea/loose stools Physical Exam Constitutional: + frail appearing; not in distress Eyes: PERRL, conjunctivae normal, anicteric sclerae ENMT: external ear and nose normal, oropharynx normal Respiratory: normal respiratory effort, lungs clear to auscultation Cardiovascular: Rate/Rhythm: + irregularly irregular Extremities: + AV fistula (+ bruit) Gastrointestinal (Abdomen): normal bowel sounds, soft, nontender, no hepatosplenomegaly Neurologic: Speech / Cognition: normal speech and normal cognition Psychiatric: Affect: euthymic affect Results & Data Vital Signs (Past 12 Hours) Vital Signs Temp Pulse Resp BP Pulse Ox O2 Del Method O2 Flow Rate 10/25/22 07:59 36.8 C 92 H 20 140/92 99 Nasal Cannula 2 10/25/22 03:16 36.5 C 99 H 18 113/82 99 Nasal Cannula 2 10/24/22 22:35 36.6 C 93 H 18 111/63 97 Nasal Cannula 2 Laboratory Results Laboratory Tests 10/25/22 10/25/22 05:56 05:56 WBC 7.21 Hgb 10.9 L Hct 35.5 L Plt Count 164 Sodium 136 Potassium 5.0 Chloride 92 L Carbon Dioxide 31 BUN 45 H Creatinine 6.73 H* D Glucose 108 H Calcium 8.5 L Diagnostic Findings 10/25/22 CXR: Progressive pulmonary edema, no infiltrate PG Care Time/CCT Total # of Minutes Spent Total Time Spent with Patient: Total time spent is greater than 50% in coordination of care (as documented) at patient's floor/unit and/or counseling patient: Coding Level of Care Code 22712 SUB INP/OBS CARE 50MIN Diagnoses Rapid atrial fibrillation I48.91 End-stage renal disease on hemodialysis N18.6; Z99.2 Anemia D64.9 Anemia type: unspecified type Sleep apnea G47.30 (3) Anemia Anemia type: unspecified type Qualified Code(s): D64.9 - Anemia, unspecified
--- NOTE | 2022-10-25 08:50 | Ultrasound Report ---
ULTRASOUND BILATERAL LOWER EXTREMITY VENOUS CLINICAL HISTORY: Lower extremity edema. COMPARISON STUDY: No priors. TECHNIQUE: Portable real-time, grayscale, and color Doppler sonography of the deep veins of the right and left lower extremity was performed from the inguinal crease to the calf. Compression and augment ation were utilized. FINDINGS: There is no sonographic evidence of deep venous thrombosis identified in the right or left lower extremity. The common femoral, superficial femoral, and popliteal veins are patent and normally compressible bilaterally. The greater saphenous vein and the profunda femoris vein at the junction w ith the common femoral vein are clear in both legs. The visualized calf veins are patent bilaterally. IMPRESSION: There is no sonographic evidence of deep venous thrombosis identified in the right or lef t lower extremity. ACT 112: Negative or not required by law. Electronically signed by: Kwan Gonzalez M.D. 10/25/2022 8:48 AM
[2022-10-25] MEDS ORDERED: 0.2 MICRON FILTER SET 1 EACH IV ONE (09:06)
[2022-10-25] MEDS ORDERED: AMIODARONE 200 MG TAB PO ONE (09:07)
[2022-10-25] MEDS ORDERED: AMIODARONE / D5W 360 MG/200 ML BAG IV SCH (09:15)
[2022-10-25] MEDS: SEVELAMER HCL 800 MG TABLET PO SCH ×3 (09:46→18:13)
[2022-10-25] MEDS: FLUTICASONE FUROATE 100MCG 14 PUFFS/INHALER INH SCH (09:47)
[2022-10-25] MEDS: PANTOprazole 40 MG TAB PO SCH (09:47)
[2022-10-25] MEDS: UMECLIDINIUM/VILANTEROL 62.5/25MCG 7 PUFFS/INHALER INH SCH (09:47)
[2022-10-25] MEDS: METOPROLOL TARTRATE 50 MG TAB PO SCH ×4 (09:47→20:25)
[2022-10-25] MEDS: FAMOTIDINE 20 MG TAB PO SCH ×2 (09:48→20:26)
[2022-10-25] MEDS: ASPIRIN 81 MG ECTAB PO SCH (09:49)
[2022-10-25] MEDS: NEPHROCAPS PO SCH (09:49)
[2022-10-25] MEDS: ISOSORBIDE MONO EXTENDED REL 30 MG TABCR PO SCH (09:49)
[2022-10-25] MEDS: amLODIPine BESYLATE 5 MG TAB PO SCH (09:49)
--- NOTE | 2022-10-25 10:19 | XRay Report ---
SINGLE VIEW CHEST CLINICAL HISTORY: Congestive heart failure. FINDINGS: An AP, portable, upright chest radiograph is compared to study dated 10/23/2022 and correlate d with chest CT dated 10/05/2022. There is a moderate to large hiatal hernia. Enlargement of the right mediastinal contours consistent with lymphadenopathy when correlated with the prior chest CT. The he art is enlarged noting atherosclerotic calcification of the thoracic aorta. There is pulmonary vascul ar congestion and mild interstitial edema. There are small pleural effusions with dependent consolida tion. No pneumothorax is seen. The skeletal structures are osteopenic. The bony thorax is grossly int act. IMPRESSION: 1. Cardiomegaly with evidence of congestive failure and mild pulmonary edema. 2. Small pleural effusions with dependent consolidation. ACT 112: Negative or not required by law. Electronically signed by: Kwan Gonzalez M.D. 10/25/2022 10:17 AM
--- NOTE | 2022-10-25 10:52 | Hospitalist Progress Note ---
Date of Service October 25, 2022 Assessment & Plan (1) Rapid atrial fibrillation: Plan: 77F with Past medical history significant for diastolic dysfunction (EF 60%, TTE 2022), valvular heart disease (mild AR/MR/TR), LAUREN on CPAP, pulmonary hypertension, HTN, hyperlipidemia, ESRD on HD, bronchial asthma, DM2 diet- controlled, GERD, comes because of not feeling well and found to be in rapid A- fib. Atrial fibrillation with RVR History of ESRD on HD, diastolic dysfunction, MAT. Underwent dialysis on the day of presentation; was found to have elevated heart rate; came to the ED. EKG on admission reviewed personally; atrial fibrillation with RVR; ventricular rate of 118. Was given dose of IV Cardizem and Lopressor; no improvement in heart rate. Patient was then started on amiodarone drip and was admitted to the hospital Currently on amiodarone drip as per cardiology. Also received oral amiodarone today. Also on heparin drip for anticoagulation. Lower extremity Doppler did not show any DVT. Continue to monitor on telemetry. End-stage renal disease On hemodialysis Next dialysis on Wednesday Chest x-ray done today personally reviewed; increase in pulmonary vascular congestion. She is on amiodarone and heparin drip. Nephrology on board; dialysis to be done today. Anemia of chronic disease hb 11.5 will follow labs Chronic diastolic CHF Valvular heart disease Cardiology on board; currently on Amio and heparin drip for A-fib. Obstructive sleep apnea CPAP with oxygen nightly Hypertension On amlodipine and Imdur Will monitor History of bronchial asthma Currently seems stable continue home inhalers Hyperlipidemia On statin GERD Pepcid Diabetes type [address] on insulin status scale follow hba1c levels DVT prophylaxis heparin drip Time spent evaluating patient, direct bedside care, chart review, placing orders, interpretation of diagnostic studies, discussion with consultants, patient, and family members, as well as other required patient management activities is 60 minutes Please note the above document was generated using voice recognition software. It may contain grammatical, syntax or spelling errors. Any formal questions or concerns about the content, text or information contained within the body of this dictation should be directly addressed to the provider for clarification Admission and Anticipated Discharge Date Admission Date: October 23, 2022 Subjective Patient seen and examined at bedside. She is lying in the bed comfortably. She had 2 episodes of vomiting this morning. Reports constipation. Last bowel movement was yesterday. Review of Systems Review of Systems: All systems reviewed & are unremarkable except as noted in Subjective Physical Exam Physical Exam: Constitutional: Alert orient x3; not in distress. Respiratory: Bilateral vesicular breath sound Cardiovascular: Irregular, no murmur, no edema Vessels: no JVD or carotid bruit Chest: normal inspection of chest Abdomen: normal bowel sounds, soft, nontender, no hepatosplenomegaly Musculoskeletal: no cyanosis or clubbing, extremities motor strength 5/5. Left AV fistula present. Skin: no rashes, warm and dry normal turgor Neurologic: PERRL, EOMI, accommodation nl, no face palsy, no dysarthria CN's II- XI intact bilaterally and moves all extremities Psychiatric: A+Ox3, euthymic affect Results & Data Results & Data Vital Signs (Past 12 Hours) Vital Signs Temp Pulse Resp BP Pulse Ox O2 Del Method O2 Flow Rate 10/25/22 07:59 36.8 C 92 H 20 140/92 99 Nasal Cannula 2 10/25/22 03:16 36.5 C 99 H 18 113/82 99 Nasal Cannula 2 Laboratory Results Laboratory Results WBC 7.21 K/ul (4.8-10.8) 10/25/22 05:56 RBC 4.10 M/uL (4.20-5.40) L 10/25/22 05:56 Hgb 10.9 g/dl (12.0-16.0) L 10/25/22 05:56 Hct 35.5 % (37.0-47.0) L 10/25/22 05:56 MCV 86.6 fL (80.0-100.0) 10/25/22 05:56 MCH 26.6 pg (25.0-34.0) 10/25/22 05:56 MCHC 30.7 g/dL (32.0-36.0) L 10/25/22 05:56 RDW Std Deviation 49.5 fL (36.4-46.3) H 10/25/22 05:56 RDW Coeff of Luis 15.8 % (11.5-14.5) H 10/25/22 05:56 Plt Count 164 K/uL (130-400) 10/25/22 05:56 MPV 10.5 fL (9.4-12.4) 10/25/22 05:56 Immature Gran % (Auto) 0.3 % 10/25/22 05:56 Neut % (Auto) 70.5 % 10/25/22 05:56 Lymph % (Auto) 16.6 % 10/25/22 05:56 King % (Auto) 7.9 % 10/25/22 05:56 Eos % (Auto) 4.3 % 10/25/22 05:56 Baso % (Auto) 0.4 % 10/25/22 05:56 Neut # (Auto) 5.08 K/uL (1.40-6.50) 10/25/22 05:56 Lymph # (Auto) 1.20 K/uL (1.20-3.40) 10/25/22 05:56 King # (Auto) 0.57 K/uL (0.11-0.59) 10/25/22 05:56 Eos # (Auto) 0.31 K/uL (0.00-0.50) 10/25/22 05:56 Baso # (Auto) 0.03 K/uL (0.00-0.20) 10/25/22 05:56 Immature Gran # (Auto) 0.02 K/uL (0.01-0.20) 10/25/22 05:56 Absolute Nucleated RBC 0.02 K/uL (0.00-0.12) 10/24/22 05:13 Nucleated RBC % (auto) 0.3 % 10/24/22 05:13 PT 11.5 Seconds (9.0-12.0) 10/24/22 09:39 INR 1.1 (0.9-1.1) 10/24/22 09:39 APTT 44.4 Seconds (21.0-31.0) H* 10/25/22 05:56 PTT Ratio 1.6 10/25/22 05:56 Sodium 136 mmol/L (136-145) 10/25/22 05:56 Potassium 5.0 mmol/L (3.5-5.1) 10/25/22 05:56 Chloride 92 mmol/L (98-107) L 10/25/22 05:56 Carbon Dioxide 31 mmol/L (21-32) 10/25/22 05:56 Anion Gap 13 (3-11) H 10/25/22 05:56 BUN 45 mg/dl (6-23) H 10/25/22 05:56 Creatinine 6.73 mg/dl (0.6-1.2) H* D 10/25/22 05:56 Est Cr Clr Drug Dosing 5.9 ml/min 10/25/22 05:56 Est GFR ( Amer) 6.3 ml/min 10/25/22 05:56 Est GFR (Non-Af Amer) 5.4 ml/min 10/25/22 05:56 BUN/Creatinine Ratio 6.7 (10-20) L 10/25/22 05:56 Glucose 108 mg/dl (70-99(Fasting)) H 10/25/22 05:56 POC Glucose 113 mg/dl (70-99) H 10/25/22 07:13 Calcium 8.5 mg/dl (8.6-10.3) L 10/25/22 05:56 Magnesium 2.1 mg/dl (1.7-2.4) 10/24/22 05:13 Total Bilirubin 0.5 mg/dl (0.2-1.0) 10/23/22 18:24 AST 18 U/L (13-39) 10/23/22 18:24 ALT 11 U/L (7-52) 10/23/22 18:24 Alkaline Phosphatase 141 U/L (34-104) H 10/23/22 18:24 Troponin I High Sens 48.4 pg/ml (0-14) H 10/24/22 16:30 Total Protein 7.5 gm/dl (6.0-8.3) 10/23/22 18:24 Albumin 4.1 gm/dl (3.4-5.0) 10/23/22 18:24 Globulin 3.4 gm/dl (2.5-4.0) 10/23/22 18:24 Albumin/Globulin Ratio 1.2 (0.9-2) 10/23/22 18:24 Lipase 59 U/L (11-82) 10/23/22 18:24 TSH 1.838 uIu/ml (0.300-4.500) 10/23/22 18:24 SARS-CoV-2, RNA, NAAT NEGATIVE (NEGATIVE) 10/23/22 19:11 Impressions Venous Doppler Study 10/25/22 08:41 ULTRASOUND BILATERAL LOWER EXTREMITY VENOUS CLINICAL HISTORY: Lower extremity edema. COMPARISON STUDY: No priors. TECHNIQUE: Portable real-time, grayscale, and color Doppler sonography of the deep veins of the right and left lower extremity was performed from the inguinal crease to the calf. Compression and augmentation were utilized. FINDINGS: There is no sonographic evidence of deep venous thrombosis identified in the right or left lower extremity. The common femoral, superficial femoral, and popliteal veins are patent and normally compressible bilaterally. The greater saphenous vein and the profunda femoris vein at the junction with the common femoral vein are clear in both legs. The visualized calf veins are patent bilaterally. IMPRESSION: There is no sonographic evidence of deep venous thrombosis identified in the right or left lower extremity. ACT 112: Negative or not required by law. Electronically signed by: Kwan Gonzalez M.D. 10/25/2022 8:48 AM Chest X-Ray 10/25/22 09:19 SINGLE VIEW CHEST CLINICAL HISTORY: Congestive heart failure. FINDINGS: An AP, portable, upright chest radiograph is compared to study dated 10/23/2022 and correlated with chest CT dated 10/05/2022. There is a moderate to large hiatal hernia. Enlargement of the right mediastinal contours consistent with lymphadenopathy when correlated with the prior chest CT. The heart is enlarged noting atherosclerotic calcification of the thoracic aorta. There is pulmonary vascular congestion and mild interstitial edema. There are small pleural effusions with dependent consolidation. No pneumothorax is seen. The skeletal structures are osteopenic. The bony thorax is grossly intact. IMPRESSION: 1. Cardiomegaly with evidence of congestive failure and mild pulmonary edema. 2. Small pleural effusions with dependent consolidation. ACT 112: Negative or not required by law. Electronically signed by: Kwan Gonzalez M.D. 10/25/2022 10:17 AM
[2022-10-25] MEDS ORDERED: SODIUM CHLORIDE 0.9% 1,000 ML IV PRN (10:53)
--- NOTE | 2022-10-25 11:52 | Cardiology Consultation ---
Date of Consultation October 25, 2022 Assessment & Plan (1) Rapid atrial fibrillation: - Patient with new onset atrial fibrillation. She is less than 2 months removed from total right knee replacement which took place on 09/08/2022, and then had a recent ICU stay requiring emergent endotracheal tube intubation for respiratory insufficiency due to volume overload, improved with hemodialysis. -Chest x-ray performed today reveals interval increase in mild interstitial edema, and her weight has trended up slightly. Case reviewed with Dr. Schrader of nephrology, and dialysis session planned for today 10/25/2022. -I think it is important to attempt to maintain sinus rhythm with regards to tolerating future dialysis sessions, however this may not be achievable given her underlying left atrial enlargement and anticipate that ultimately at some point she will have persistent atrial fibrillation. For now, recommend IV amiodarone load, 1 mg/min, ongoing dose, amiodarone 200 mg twice daily. LFTs and thyroid function testing performed on admission were within normal limits. -Change metoprolol to tartrate back to her prior to arrival treatment with metoprolol succinate 75 mg twice daily. -Continue heparin for stroke prophylaxis. -Consider CT angiogram later today or tomorrow to exclude pulmonary embolism. -Dr Nguyễn todd on 10/26 and I am back on service on 10/27/22. History of Present Illness Attending Physician: Fernandez Mcneal MD History of Present Illness Juventino Ward is a 77-year-old female seen in cardiology consultation per the request of Dr. Joseph and Dr Mcneal. Initial consultation actually performed yesterday 10/24/2022, however today I recognize that I had inadvertently utilized the template for a cardiology follow-up note yesterday. Patient had presented with tachycardia noted during attempted dialysis session on 10/23/2022 prompting early cessation of dialysis. EKG and telemetry consistent with atrial fibrillation or perhaps atrial flutter with rapid ventricular response. Echocardiogram has revealed normal biventricular systolic function with noted findings of severe left atrial enlargement, unchanged compared to the resting study performed at time of dobutamine stress echocardiogram in July. Patient was maintained on IV amiodarone again last evening. She was receiving metoprolol tartrate 50 mg 4 times daily, and has received her first dose of oral amiodarone this morning. Telemetry reveals ongoing atrial fibrillation in the range of 90 to 110 bpm this morning. Overall rate is trended toward improvement. Patient without subjective palpitations. Noted vague nauseousness this morning. Allergies Allergy/AdvReac Type Severity Reaction Status Date / Time pollen extracts Allergy Mild sneezing, Verified 10/23/22 19:18 watery eyes Home Medications Medication Instructions Recorded Confirmed Type atorvastatin 40 mg tablet 40 mg PO HS 11/10/18 10/23/22 History famotidine 20 mg tablet 20 mg PO AMHS 05/28/21 10/23/22 History lidocaine-prilocaine 2.5 %-2.5 % See Rx Instructions topical 05/28/21 10/23/22 History topical cream .COMPLEX nitroglycerin 0.4 mg sublingual 0.4 mg sublingual Q5M PRN Chest 05/28/21 10/23/22 History tablet (Nitrostat) Pain pantoprazole 40 mg tablet,delayed 40 mg PO DAILYBB 05/28/21 10/23/22 History release polyethylene glycol 3350 17 gram 17 g PO BID PRN Constipation 05/28/21 10/23/22 History oral powder packet (Miralax) triamcinolone acetonide 0.025 % 1 applic topical BID PRN Rash 05/28/21 10/23/22 History lotion fluticasone fur. 100 mcg-umeclid 1 inh inhalation QAM 10/14/21 10/23/22 History 62.5 mcg-vilant 25 mcg inhalat.powder (Trelegy Ellipta) albuterol sulfate 90 mcg/actuation 2 puff inhalation Q6 PRN Wheezing 01/26/22 10/23/22 History aerosol inhaler (Ventolin HFA) fluticasone propionate 50 2 spray intranasal QAM PRN Allergy 01/26/22 10/23/22 History mcg/actuation nasal Symptoms spray,suspension isosorbide mononitrate 30 mg 30 mg PO QAM 01/26/22 10/23/22 History tablet,extended release 24 hr ondansetron HCl 4 mg tablet 4 mg PO Q8 PRN Nausea 01/26/22 10/23/22 History sevelamer carbonate 800 mg tablet 1,600 mg PO TIDM 01/26/22 10/23/22 History (Renvela) vit B complx, C-iron 8 mg-folic 1 tab PO QAM 01/26/22 10/23/22 History acid 800 mcg-D3 1,000 unit-zinc tablet (ProRenal) amlodipine 2.5 mg tablet 2.5 mg PO QAM 06/15/22 10/23/22 History montelukast 5 mg chewable tablet 10 mg PO DAILY PRN allergies 09/08/22 10/23/22 History (Singulair) aspirin 81 mg tablet,delayed 81 mg PO DAILY 10/04/22 10/23/22 History release tramadol 50 mg tablet 50 mg PO DAILY PRN Pain #20 tabs 10/11/22 10/23/22 Rx Patient History Medical History Anemia of chronic disease Aortic stenosis Mild aortic stenosis (ASHLI 1.3-1.4cm2, MG 15.3mmhg) per 03/2022 echo Asthma, moderate persistent AV fistula LUE Bilateral primary osteoarthritis of knee Chronic anemia Hx iron infusions Chronic anemia Diabetes mellitus diet controlled End-stage renal disease on hemodialysis MWF ([facility]) GERD (gastroesophageal reflux disease) Gout History of COVID-19 Most recent 10/2021 ([facility])- symptoms resolved Hyperlipidemia Hypertension Osteoarthritis of knees, bilateral RSV (respiratory syncytial virus pneumonia) Sleep apnea CPAP + 2L HS Surgical History H/O partial thyroidectomy H/O: hysterectomy SANDRA BSO History of appendectomy History of cardiac cath 2017 ([facility])- no stents History of cataract surgery History of cholecystectomy History of colonoscopy History of esophagogastroduodenoscopy (EGD) 10/2021 History of lumbar surgery History of oral surgery salivary gland surgery History of tooth extraction all teeth removed S/P arteriovenous (AV) fistula creation Status post biopsy of kidney kidney disease Family History Daughter Cancer Breast Daughter Cancer Breast Daughter Hypertension Daughter Hypertension Father Diabetes Hypertension Mother Hypertension Brother Diabetes Brother Diabetes Sister Diabetes Sister Diabetes Sister Hypertension Sister Hypertension Other No family history of adverse response to anesthesia Social History Smoking Status: Never smoker Second Hand Exposure: No; Do You Dip or Chew Tobacco: No; Hx Alcohol Use: No Hx Substance Use: No Preferred Language: Nepalese Communication Ability: Effective Communication Ability Comment: daughter states her mother can read/write/understand indonesian Staff Psychiatrist Required: No Beliefs That Will Affect Care: None marital status: / Current Living Situation: Family Current Living Situation Comment: Lives with daughter Feels Safe at Home: Yes Assistive Devices: Cane, CPAP, Oxygen - at Night and Walker Review of Systems Review of Systems: All systems reviewed & are unremarkable except as noted in HPI & below Gastrointestinal: + nausea Physical Exam Constitutional: WD/WN, vitals as above Cardiovascular: Rate/Rhythm: + tachycardic and + irregularly irregular Heart Sounds: + murmur (1/6 systolic murmur) Extremities: + AV fistula (Left upper extremity AV fistula with appropriate auscultative sounds); no edema Gastrointestinal (Abdomen): normal bowel sounds, soft, nontender, no hepatosplenomegaly Neurologic: PERRL, EOMI, accommodation nl, no face palsy, no dysarthria Results & Data Vital Signs (Past 12 Hours) Vital Signs Temp Pulse Pulse Resp BP Pulse Ox O2 Del Method 10/25/22 11:24 36.7 C 102 H 18 116/79 97 Nasal Cannula 10/25/22 10:00 97 H 10/25/22 10:00 Room Air 10/25/22 07:59 36.8 C 92 H 20 140/92 99 Nasal Cannula 10/25/22 03:16 36.5 C 99 H 18 113/82 99 Nasal Cannula O2 Flow Rate 10/25/22 11:24 2 10/25/22 10:00 10/25/22 10:00 10/25/22 07:59 2 10/25/22 03:16 2 Laboratory Results Cardiac Enzymes 10/24/22 Range/Units 16:30 Troponin I High Sens 48.4 H (0-14) pg/ml Coagulation 10/24/22 10/25/22 Range/Units 16:30 05:56 APTT 45.4 H* 44.4 H* (21.0-31.0) Seconds CBC 10/25/22 Range/Units 05:56 WBC 7.21 (4.8-10.8) K/ul RBC 4.10 L (4.20-5.40) M/uL Hgb 10.9 L (12.0-16.0) g/dl Hct 35.5 L (37.0-47.0) % Plt Count 164 (130-400) K/uL Neut # (Auto) 5.08 (1.40-6.50) K/uL Lymph # (Auto) 1.20 (1.20-3.40) K/uL [place] # (Auto) 0.57 (0.11-0.59) K/uL Eos # (Auto) 0.31 (0.00-0.50) K/uL Baso # (Auto) 0.03 (0.00-0.20) K/uL Comprehensive Metabolic Panel 10/25/22 Range/Units 05:56 Sodium 136 (136-145) mmol/L Potassium 5.0 (3.5-5.1) mmol/L Chloride 92 L (98-107) mmol/L Carbon Dioxide 31 (21-32) mmol/L BUN 45 H (6-23) mg/dl Creatinine 6.73 H* D (0.6-1.2) mg/dl Glucose 108 H (70-99(Fasting)) mg/dl Calcium 8.5 L (8.6-10.3) mg/dl Intake and Output 10/24/22 10/25/22 10/25/22 22:59 06:59 14:59 Intake Total 318.733 / 505.096 50 / 505.096 301.700 / 301.700 Output Total Balance 318.733 / 504.096 49 / 504.096 300.700 / 300.700 Intake: IV 318.733 / 445.096 301.700 / 301.700 Amiodarone / D5w 360 mg In 200 200 / 326.363 136.383 / 136.383 ml @ 1 MG/MIN 33.333 mls/hr IV .Q6H RIVAS Rx#:[id number] Heparin Sodium/Dextrose 25,000 118.733 / 118.733 165.317 / 165.317 units In 500 ml @ 650 UNITS/HR 13 mls/hr IV .Q24H RIVAS Rx#: [id number] Other 50 / 50 Output: # Bowel Movements Other: # Unmeasured Voids 1 # Emeses 1 Weight 64.6 kg Weight Measurement Method Built in [facility] Diagnostic Findings EKG performed 10/25/2022 revealed atrial fibrillation at 93 bpm with left anterior fascicular block. Bilateral lower extremity venous duplex performed 10/24/2022: Negative for DVT
[2022-10-25] MEDS: AMIODARONE 200 MG TAB PO SCH (18:05)
[2022-10-25] MEDS: ATORVASTATIN 40 MG TAB PO SCH (20:26)
[2022-10-25] MEDS: HEPARIN SODIUM/DEXTROSE 25,000 UNITS/500 ML BAG IV SCH (23:44)
[2022-10-26] MEDS: AMIODARONE / D5W 360 MG/200 ML BAG IV SCH ×2 (07:00→18:15)
[2022-10-26 08:21] LABS: Basophils # (auto) 0.05 K/uL (0.00-0.20); Basophils % (auto) 0.7 %; Eosinophils # (auto) 0.24 K/uL (0.00-0.50); Eosinophils % (auto) 3.5 %; Hematocrit (blood only) 37.4 % (37.0-47.0); Hemoglobin 11.2 g/dl (12.0-16.0); Immature Granulocytes # (auto) 0.05 K/uL (0.01-0.20); Immature Granulocytes % (auto) 0.7 %; Lymphocytes # (auto) 1.25 K/uL (1.20-3.40); Lymphocytes % (auto) 18.5 %; Mean Corpuscular Hemoglobin 26.1 pg (25.0-34.0); Mean Corpuscular Hgb Conc 29.9 g/dL (32.0-36.0); Mean Corpuscular Volume 87.2 fL (80.0-100.0); Mean Platelet Volume 10.8 fL (9.4-12.4); Monocytes # (auto) 0.63 K/uL (0.11-0.59); Monocytes % (auto) 9.3 %; Neutrophils # (auto) 4.55 K/uL (1.40-6.50); Neutrophils % (auto) 67.3 %; Platelet Count 152 K/uL (130-400); RDW Coefficient of Variation 15.9 % (11.5-14.5); Red Blood Count 4.29 M/uL (4.20-5.40); White Blood Count 6.77 K/ul (4.8-10.8)
[2022-10-26 08:26] LABS: Partial Thromboplastin Ratio 1.2; Partial Thromboplastin Time 34.5 Seconds (21.0-31.0); Prothrombin Time 11.1 Seconds (9.0-12.0)
[2022-10-26 08:29] LABS: Potassium 5.4 mmol/L (3.5-5.1)
[2022-10-26 08:36] LABS: BUN Creatinine Ratio 4.7 (10-20); Creatinine Clr Calc Pharmacy 7.8 ml/min; Est GFR (African American) 8.8 ml/min; Est GFR (Non-African American) 7.6 ml/min
[2022-10-26] MEDS: INSULIN ASPART PER UNIT CHARGE SC SCH ×4 (08:49→21:15)
[2022-10-26] MEDS: PANTOprazole 40 MG TAB PO SCH (08:51)
[2022-10-26] MEDS: NEPHROCAPS PO SCH (08:51)
[2022-10-26] MEDS: ASPIRIN 81 MG ECTAB PO SCH (08:51)
[2022-10-26] MEDS: ISOSORBIDE MONO EXTENDED REL 30 MG TABCR PO SCH (08:51)
[2022-10-26] MEDS: METOPROLOL SUCC 25MG EXT REL TAB PO SCH (08:51)
[2022-10-26] MEDS: amLODIPine BESYLATE 5 MG TAB PO SCH ×2 (08:52→09:19)
[2022-10-26] MEDS: AMIODARONE 200 MG TAB PO SCH ×2 (08:52→17:26)
--- NOTE | 2022-10-26 08:52 | Communication Note ---
Date of Service: October 26, 2022 Hgb Stable. INR 1 Start coumadin 5 mg daily. Repeat INR in am.
[2022-10-26] MEDS ORDERED: SODIUM CHLORIDE 0.9% 1,000 ML IV PRN (08:53)
[2022-10-26] MEDS: FLUTICASONE FUROATE 100MCG 14 PUFFS/INHALER INH SCH (08:53)
[2022-10-26] MEDS: FAMOTIDINE 20 MG TAB PO SCH ×2 (08:53→21:13)
[2022-10-26] MEDS: SEVELAMER HCL 800 MG TABLET PO SCH ×4 (08:53→17:26)
--- NOTE | 2022-10-26 08:53 | Nephrology Progress Note ---
Date of Service October 26, 2022 Assessment & Plan (1) Rapid atrial fibrillation: Plan: * On Amiodarone and Heparin gtt * Rhythm is irregular, HR 90's. Patient remains on anticoagulation * LE doppler 10/25/22 was negative for DVT * 10/26/22 Chest CTA - negative for PE * 10/23/22 TSH 1.8 (2) End-stage renal disease on hemodialysis: Plan: * EDW has been reduced to 62 kg in the outpatient setting * Patient was dialyzed yesterday for 3 L UF. She has since received 1 L IVF and remains ~3 kg above EDW * Outpatient HD Rx: [facility] (MWF 3.25 hr, F-180NR, Qb 350/Qd 600, 2K 2Ca, Na137, HCO3 36, EDW 62kg) * Will schedule HD today for 3 hours and UF to EDW 62 kg. Orders have been entered into the EMR and HD RN notified (3) Anemia: Plan: * Hgb is within target 10-11 g/dL range * 10/26/22 Iron saturation < 12%. Will provide IV Venofer w/ HD today (4) Sleep apnea: Plan: * Nocturnal CPAP as per primary service Admission and Anticipated Discharge Date Admission Date: October 23, 2022 Subjective Ms. Ward was evaluated in her hospital room this morning. She was breathing comfortably on O2 at 2L/min NC. Ms. Ward denied dyspnea, angina or palpitations Review of Systems Constitutional: no fever Eyes: no problem reported Ear, Nose, Mouth, Throat: no problem reported Respiratory: no cough and no dyspnea Cardiovascular: no chest pain Gastrointestinal: no abdominal pain, no vomiting and no diarrhea/loose stools Physical Exam Constitutional: + frail appearing; not in distress Eyes: PERRL, conjunctivae normal, anicteric sclerae ENMT: external ear and nose normal, oropharynx normal Respiratory: normal respiratory effort, lungs clear to auscultation Cardiovascular: Rate/Rhythm: + irregularly irregular Extremities: + AV fistula (+ bruit) Gastrointestinal (Abdomen): normal bowel sounds, soft, nontender, no hepatosplenomegaly Neurologic: Speech / Cognition: normal speech and normal cognition Psychiatric: Affect: euthymic affect Results & Data Vital Signs (Past 12 Hours) Vital Signs Temp Pulse Pulse Pulse Resp BP Pulse Ox 10/26/22 06:54 36.6 C 93 H 18 113/77 96 09/04/23 03:08 36.5 C 94 H 18 108/71 98 10/25/22 22:10 106 H 10/25/22 23:56 36.6 C 95 H 18 121/76 99 O2 Del Method 10/26/22 06:54 BiPAP 10/26/22 03:08 CPAP 10/25/22 22:10 10/25/22 23:56 CPAP Laboratory Results Laboratory Tests 10/26/22 10/26/22 08:06 08:06 WBC 6.77 Hgb 11.2 L Hct 37.4 Plt Count 152 Sodium 137 Potassium 5.4 H Chloride 98 Carbon Dioxide 29 BUN 24 H D Creatinine 5.08 H* D Glucose 113 H Transferrin % Sat 12 L Diagnostic Findings 10/26/22 Chest CTA: 1. No evidence for a pulmonary embolus. 2. Stable cardiomegaly. No evidence for pulmonary edema. 3. Mild mediastinal lymphadenopathy has improved. 4. Moderate hiatus hernia, unchanged. 5. No new focal lung consolidations to suggest a pneumonia. PG Care Time/CCT Total # of Minutes Spent Total Time Spent with Patient: Total time spent is greater than 50% in coordination of care (as documented) at patient's floor/unit and/or counseling patient: Coding Level of Care Code 95870 SUB INP/OBS CARE 3/50MIN Diagnoses Rapid atrial fibrillation I48.91 End-stage renal disease on hemodialysis N18.6; Z99.2 Anemia D64.9 Anemia type: unspecified type Sleep apnea G47.30 (3) Anemia Anemia type: unspecified type Qualified Code(s): D64.9 - Anemia, unspecified
[2022-10-26] MEDS: UMECLIDINIUM/VILANTEROL 62.5/25MCG 7 PUFFS/INHALER INH SCH (08:54)
[2022-10-26] MEDS ORDERED: HEPARIN SOD (PORCINE) 1000 UNIT/ML IV ONE (09:00)
[2022-10-26] MEDS ORDERED: IRON SUCROSE 200 MG in SYRINGE 0 ML IV ONE (09:30)
[2022-10-26] MEDS ORDERED: IOVERSOL 350 MG 125mL Prefilled Syringe IV ONE (10:22)
--- NOTE | 2022-10-26 10:50 | CT Scan Report ---
CHEST CTA for PULMONARY ARTERIES CT DOSE: 763.42 mGy.cm HISTORY: Shortness of breath. TECHNIQUE: Multiaxial CT images of the chest were performed following the intravenous administration of contrast to evaluate the pulmonary arteries. 3D/Maximal intensity projection images were also obta ined. Sagittal and coronal reformations were also reviewed. A dose lowering technique was utilized a dhering to the principles of ALARA. COMPARISON STUDY: Chest CT 10/05/2022. FINDINGS: The central airways are patent. No pneumothorax. No pleural effusions. A few bibasilar line ar densities favor subsegmental atelectasis. Otherwise, no focal lung consolidations to suggest a pne umonia. No evidence for pulmonary edema. No acute fractures identified. Limited views of the upper ab domen demonstrate a normal liver, spleen, and visualized adrenal glands. Multinodular thyroid goiter again noted. Normal caliber esophagus. There is a moderate hiatus hernia, unchanged. The heart remain s enlarged. No pericardial effusion. Mild mediastinal lymphadenopathy has improved. No hilar lymphade nopathy. Leftward deviation of the proximal trachea due to the large right thyroid goiter, unchanged. Normal caliber thoracic aorta with no evidence for a dissection. Severe coronary artery calcificatio ns are noted. No filling defects within the pulmonary arteries to suggest a pulmonary embolus. IMPRESSION: 1. No evidence for a pulmonary embolus. 2. Stable cardiomegaly. No evidence for pulmonary edema. 3. Mild mediastinal lymphadenopathy has improved. 4. Moderate hiatus hernia, unchanged. 5. No new focal lung consolidations to suggest a pneumonia. ACT 112: Negative or not required by law. Electronically signed by: Guilherme Rome M.D. 10/26/2022 10:48 AM
--- NOTE | 2022-10-26 11:11 | Cardiology Progress Note ---
Date of Service October 26, 2022 Assessment & Plan (1) Rapid atrial fibrillation: Plan: New onset atrial fibrillation present. We will continue IV amiodarone to finish infusion. Oral amiodarone ordered and metoprolol succinate restarted. Atorvastatin dosage reduced to 20 mg every afternoon Blood pressure slightly low this morning we will hold amlodipine Patient to continue chronic anticoagulation with warfarin. May need reduced dose on amiodarone Admission and Anticipated Discharge Date Admission Date: October 23, 2022 Subjective Patient seen and examined, chart, medications, telemetry reviewed. Patient feels she has felt better since having had dialysis yesterday. Remains in atrial fibrillation with variable heart rate response. IV amiodarone continuing No chest pains or shortness of breath No dizziness or lightheadedness Review of Systems Review of Systems: All systems reviewed & are unremarkable except as noted in Subjective Physical Exam Constitutional: WD/WN, vitals as above ENMT: external ear and nose normal, oropharynx normal Neck: trachea midline, no thyromegaly Cardiovascular: Rate/Rhythm: + tachycardic and + irregularly irregular Heart Sounds: + murmur (1/6 systolic murmur) Extremities: + AV fistula (Left upper extremity AV fistula with appropriate auscultative sounds); no edema Gastrointestinal (Abdomen): normal bowel sounds, soft, nontender, no h epatosplenomegaly Neurologic: PERRL, EOMI, accommodation nl, no face palsy, no dysarthria Results & Data Vital Signs (Past 12 Hours) Vital Signs Temp Pulse Pulse Pulse Resp BP BP 10/26/22 10:00 96 H 10/26/22 10:00 10/26/22 10:42 106 H 96/64 L 10/26/22 10:35 36.9 C 84 10/26/22 06:54 36.6 C 93 H 18 113/77 10/26/22 03:08 36.5 C 94 H 18 108/71 10/25/22 23:56 36.6 C 95 H 18 121/76 Pulse Ox O2 Del Method O2 Flow Rate 10/26/22 10:00 10/26/22 10:00 Nasal Cannula 2 10/26/22 10:42 10/26/22 10:35 10/26/22 06:54 96 BiPAP 10/26/22 03:08 98 CPAP 10/25/22 23:56 99 CPAP Laboratory Results Laboratory Results - last 24 hr 10/25/22 10/25/22 10/25/22 11:20 18:00 20:41 WBC RBC Hgb Hct MCV MCH MCHC RDW Std Deviation RDW Coeff of Luis Plt Count MPV Immature Gran % (Auto) Neut % (Auto) Lymph % (Auto) [place] % (Auto) Eos % (Auto) Baso % (Auto) Neut # (Auto) Lymph # (Auto) [place] # (Auto) Eos # (Auto) Baso # (Auto) Immature Gran # (Auto) PT INR APTT PTT Ratio Sodium Potassium Chloride Carbon Dioxide Anion Gap BUN Creatinine Est Cr Clr Drug Dosing Est GFR ( Amer) Est GFR (Non-Af Amer) BUN/Creatinine Ratio Glucose POC Glucose 130 H 111 H 121 H Calcium Iron TIBC Unsaturated IBC Transferrin % Sat Ferritin 10/26/22 10/26/22 10/26/22 06:56 08:06 08:06 WBC 6.77 RBC 4.29 Hgb 11.2 L Hct 37.4 MCV 87.2 MCH 26.1 MCHC 29.9 L RDW Std Deviation 50.0 H RDW Coeff of Luis 15.9 H Plt Count 152 MPV 10.8 Immature Gran % (Auto) 0.7 Neut % (Auto) 67.3 Lymph % (Auto) 18.5 [place] % (Auto) 9.3 Eos % (Auto) 3.5 Baso % (Auto) 0.7 Neut # (Auto) 4.55 Lymph # (Auto) 1.25 [place] # (Auto) 0.63 H Eos # (Auto) 0.24 Baso # (Auto) 0.05 Immature Gran # (Auto) 0.05 PT INR APTT PTT Ratio Sodium 137 Potassium 5.4 H Chloride 98 Carbon Dioxide 29 Anion Gap 10 BUN 24 H D Creatinine 5.08 H* D Est Cr Clr Drug Dosing 7.8 Est GFR ( Amer) 8.8 Est GFR (Non-Af Amer) 7.6 BUN/Creatinine Ratio 4.7 L Glucose 113 H POC Glucose 100 H Calcium 9.0 Iron 21 L TIBC 177 L Unsaturated IBC 156 Transferrin % Sat 12 L Ferritin Cancelled 10/26/22 10/26/22 08:06 09:45 WBC RBC Hgb Hct MCV MCH MCHC RDW Std Deviation RDW Coeff of Luis Plt Count MPV Immature Gran % (Auto) Neut % (Auto) Lymph % (Auto) [place] % (Auto) Eos % (Auto) Baso % (Auto) Neut # (Auto) Lymph # (Auto) [place] # (Auto) Eos # (Auto) Baso # (Auto) Immature Gran # (Auto) PT 11.1 INR 1.0 APTT 34.5 H PTT Ratio 1.2 Sodium Potassium Chloride Carbon Dioxide Anion Gap BUN Creatinine Est Cr Clr Drug Dosing Est GFR ( Amer) Est GFR (Non-Af Amer) BUN/Creatinine Ratio Glucose POC Glucose Calcium Iron TIBC Unsaturated IBC Transferrin % Sat Ferritin Pending
--- NOTE | 2022-10-26 11:46 | Hospitalist Progress Note ---
Date of Service October 26, 2022 Assessment & Plan (1) Rapid atrial fibrillation: Plan: 77F with Past medical history significant for diastolic dysfunction (EF 60%, TTE 2022), valvular heart disease (mild AR/MR/TR), LAUREN on CPAP, pulmonary hypertension, HTN, hyperlipidemia, ESRD on HD, bronchial asthma, DM2 diet- controlled, GERD, comes because of not feeling well and found to be in rapid A- fib. Atrial fibrillation with RVR History of ESRD on HD, diastolic dysfunction, MAT. Underwent dialysis on the day of presentation; was found to have elevated heart rate; came to the ED. EKG on admission reviewed personally; atrial fibrillation with RVR; ventricular rate of 118. Was given dose of IV Cardizem and Lopressor; no improvement in heart rate. Patient was then started on amiodarone drip and was admitted to the hospital CTA chest done today; personally reviewed no PE/infiltrate. Lower extremity Doppler did not show any DVT. Continues to be in atrial fibrillation; cardiology recommends to continue IV amiodarone intravenous infusion. Oral amiodarone and metoprolol started. Lipitor dose reduced to 20 mg. Also on heparin drip for anticoagulation; started on warfarinheparin bridge today. Continue to monitor on telemetry. End-stage renal disease On Wednesday and Wednesday dialysis. She received 1 extra session of dialysis on October 25 as she had received IV amiodarone and heparin. Anemia of chronic disease Hemoglobin is stable. Around 11. Chronic diastolic CHF Valvular heart disease Cardiology on board; currently on Amio and heparin drip for A-fib. Obstructive sleep apnea CPAP with oxygen nightly Hypertension On amlodipine and Imdur Will monitor History of bronchial asthma Currently seems stable continue home inhalers Hyperlipidemia On statin GERD Pepcid Diabetes type 2 on insulin status scale DVT prophylaxis heparin drip/warfarin. Time spent evaluating patient, direct bedside care, chart review, placing orders, interpretation of diagnostic studies, discussion with consultants, patient, and family members, as well as other required patient management activities is 60 minutes Please note the above document was generated using voice recognition software. It may contain grammatical, syntax or spelling errors. Any formal questions or concerns about the content, text or information contained within the body of this dictation should be directly addressed to the provider for clarification Admission and Anticipated Discharge Date Admission Date: October 23, 2022 Subjective Patient seen and examined at bedside. She reports that she is feeling much better compared to yesterday. Denies shortness of breath. No episode of nausea and vomiting today. Continues to be in atrial fibrillation with ventricular rate in 100s Review of Systems Review of Systems: All systems reviewed & are unremarkable except as noted in Subjective Physical Exam Physical Exam: Constitutional: Alert orient x3; not in distress. Respiratory: Bilateral vesicular breath sound Cardiovascular: Irregular, no murmur, no edema Vessels: no JVD or carotid bruit Chest: normal inspection of chest Abdomen: normal bowel sounds, soft, nontender, no hepatosplenomegaly Musculoskeletal: no cyanosis or clubbing, extremities motor strength 5/5. Left AV fistula present. Skin: no rashes, warm and dry normal turgor Neurologic: PERRL, EOMI, accommodation nl, no face palsy, no dysarthria CN's II- XI intact bilaterally and moves all extremities Psychiatric: A+Ox3, euthymic affect Results & Data Results & Data Vital Signs (Past 12 Hours) Vital Signs Temp Pulse Pulse Pulse Resp BP BP 10/26/22 10:00 96 H 10/26/22 10:00 10/26/22 10:42 106 H 96/64 L 10/26/22 10:35 36.9 C 84 10/26/22 06:54 36.6 C 93 H 18 113/77 10/26/22 03:08 36.5 C 94 H 18 108/71 10/25/22 23:56 36.6 C 95 H 18 121/76 Pulse Ox O2 Del Method O2 Flow Rate 10/26/22 10:00 10/26/22 10:00 Nasal Cannula 2 10/26/22 10:42 10/26/22 10:35 10/26/22 06:54 96 BiPAP 10/26/22 03:08 98 CPAP 10/25/22 23:56 99 CPAP Laboratory Results Laboratory Results WBC 6.77 K/ul (4.8-10.8) 10/26/22 08:06 RBC 4.29 M/uL (4.20-5.40) 10/26/22 08:06 Hgb 11.2 g/dl (12.0-16.0) L 10/26/22 08:06 Hct 37.4 % (37.0-47.0) 10/26/22 08:06 MCV 87.2 fL (80.0-100.0) 10/26/22 08:06 MCH 26.1 pg (25.0-34.0) 10/26/22 08:06 MCHC 29.9 g/dL (32.0-36.0) L 10/26/22 08:06 RDW Std Deviation 50.0 fL (36.4-46.3) H 10/26/22 08:06 RDW Coeff of Luis 15.9 % (11.5-14.5) H 10/26/22 08:06 Plt Count 152 K/uL (130-400) 10/26/22 08:06 MPV 10.8 fL (9.4-12.4) 10/26/22 08:06 Immature Gran % (Auto) 0.7 % 10/26/22 08:06 Neut % (Auto) 67.3 % 10/26/22 08:06 Lymph % (Auto) 18.5 % 10/26/22 08:06 [place] % (Auto) 9.3 % 10/26/22 08:06 Eos % (Auto) 3.5 % 10/26/22 08:06 Baso % (Auto) 0.7 % 10/26/22 08:06 Neut # (Auto) 4.55 K/uL (1.40-6.50) 10/26/22 08:06 Lymph # (Auto) 1.25 K/uL (1.20-3.40) 10/26/22 08:06 [place] # (Auto) 0.63 K/uL (0.11-0.59) H 10/26/22 08:06 Eos # (Auto) 0.24 K/uL (0.00-0.50) 10/26/22 08:06 Baso # (Auto) 0.05 K/uL (0.00-0.20) 10/26/22 08:06 Immature Gran # (Auto) 0.05 K/uL (0.01-0.20) 10/26/22 08:06 Absolute Nucleated RBC 0.02 K/uL (0.00-0.12) 10/24/22 05:13 Nucleated RBC % (auto) 0.3 % 10/24/22 05:13 PT 11.1 Seconds (9.0-12.0) 10/26/22 08:06 INR 1.0 (0.9-1.1) 10/26/22 08:06 APTT 34.5 Seconds (21.0-31.0) H 10/26/22 08:06 PTT Ratio 1.2 10/26/22 08:06 Sodium 137 mmol/L (136-145) 10/26/22 08:06 Potassium 5.4 mmol/L (3.5-5.1) H 10/26/22 08:06 Chloride 98 mmol/L (98-107) 10/26/22 08:06 Carbon Dioxide 29 mmol/L (21-32) 10/26/22 08:06 Anion Gap 10 (3-11) 10/26/22 08:06 BUN 24 mg/dl (6-23) H D 10/26/22 08:06 Creatinine 5.08 mg/dl (0.6-1.2) H* D 10/26/22 08:06 Est Cr Clr Drug Dosing 7.8 ml/min 10/26/22 08:06 Est GFR ( Amer) 8.8 ml/min 10/26/22 08:06 Est GFR (Non-Af Amer) 7.6 ml/min 10/26/22 08:06 BUN/Creatinine Ratio 4.7 (10-20) L 10/26/22 08:06 Glucose 113 mg/dl (70-99(Fasting)) H 10/26/22 08:06 POC Glucose 100 mg/dl (70-99) H 10/26/22 06:56 Calcium 9.0 mg/dl (8.6-10.3) 10/26/22 08:06 Magnesium 2.1 mg/dl (1.7-2.4) 10/24/22 05:13 Iron 21 mcg/dl (35-150) L 10/26/22 08:06 TIBC 177 mcg/dl (250-450) L 10/26/22 08:06 Unsaturated IBC 156 mcg/dl (155-355) 10/26/22 08:06 Transferrin % Sat 12 % (15-50) L 10/26/22 08:06 Ferritin 1693.0 ng/ml (8-388) H 10/26/22 09:45 Total Bilirubin 0.5 mg/dl (0.2-1.0) 10/23/22 18:24 AST 18 U/L (13-39) 10/23/22 18:24 ALT 11 U/L (7-52) 10/23/22 18:24 Alkaline Phosphatase 141 U/L (34-104) H 10/23/22 18:24 Troponin I High Sens 48.4 pg/ml (0-14) H 10/24/22 16:30 Total Protein 7.5 gm/dl (6.0-8.3) 10/23/22 18:24 Albumin 4.1 gm/dl (3.4-5.0) 10/23/22 18:24 Globulin 3.4 gm/dl (2.5-4.0) 10/23/22 18:24 Albumin/Globulin Ratio 1.2 (0.9-2) 10/23/22 18:24 Lipase 59 U/L (11-82) 10/23/22 18:24 TSH 1.838 uIu/ml (0.300-4.500) 10/23/22 18:24 SARS-CoV-2, RNA, NAAT NEGATIVE (NEGATIVE) 10/23/22 19:11 Impressions Venous Doppler Study 10/25/22 08:41 ULTRASOUND BILATERAL LOWER EXTREMITY VENOUS CLINICAL HISTORY: Lower extremity edema. COMPARISON STUDY: No priors. TECHNIQUE: Portable real-time, grayscale, and color Doppler sonography of the deep veins of the right and left lower extremity was performed from the inguinal crease to the calf. Compression and augmentation were utilized. FINDINGS: There is no sonographic evidence of deep venous thrombosis identified in the right or left lower extremity. The common femoral, superficial femoral, and popliteal veins are patent and normally compressible bilaterally. The greater saphenous vein and the profunda femoris vein at the junction with the common femoral vein are clear in both legs. The visualized calf veins are patent bilaterally. IMPRESSION: There is no sonographic evidence of deep venous thrombosis identified in the right or left lower extremity. ACT 112: Negative or not required by law. Electronically signed by: Kwan Gonzalez M.D. 10/25/2022 8:48 AM Chest X-Ray 10/25/22 09:19 SINGLE VIEW CHEST CLINICAL HISTORY: Congestive heart failure. FINDINGS: An AP, portable, upright chest radiograph is compared to study dated 10/23/2022 and correlated with chest CT dated 10/05/2022. There is a moderate to large hiatal hernia. Enlargement of the right mediastinal contours consistent with lymphadenopathy when correlated with the prior chest CT. The heart is enlarged noting atherosclerotic calcification of the thoracic aorta. There is pulmonary vascular congestion and mild interstitial edema. There are small pleural effusions with dependent consolidation. No pneumothorax is seen. The skeletal structures are osteopenic. The bony thorax is grossly intact. IMPRESSION: 1. Cardiomegaly with evidence of congestive failure and mild pulmonary edema. 2. Small pleural effusions with dependent consolidation. ACT 112: Negative or not required by law. Electronically signed by: Kwan Gonzalez M.D. 10/25/2022 10:17 AM Chest CTA 10/26/22 09:34 CHEST CTA for PULMONARY ARTERIES CT DOSE: 763.42 mGy.cm HISTORY: Shortness of breath. TECHNIQUE: Multiaxial CT images of the chest were performed following the intravenous administration of contrast to evaluate the pulmonary arteries. 3D/Maximal intensity projection images were also obtained. Sagittal and coronal reformations were also reviewed. A dose lowering technique was utilized adhering to the principles of ALARA. COMPARISON STUDY: Chest CT 10/05/2022. FINDINGS: The central airways are patent. No pneumothorax. No pleural effusions. A few bibasilar linear densities favor subsegmental atelectasis. Otherwise, no focal lung consolidations to suggest a pneumonia. No evidence for pulmonary edema. No acute fractures identified. Limited views of the upper abdomen de monstrate a normal liver, spleen, and visualized adrenal glands. Multinodular thyroid goiter again noted. Normal caliber esophagus. There is a moderate hiatus hernia, unchanged. The heart remains enlarged. No pericardial effusion. Mild mediastinal lymphadenopathy has improved. No hilar lymphadenopathy. Leftward deviation of the proximal trachea due to the large right thyroid goiter, unchanged. Normal caliber thoracic aorta with no evidence for a dissection. Severe coronary artery calcifications are noted. No filling defects within the pulmonary arteries to suggest a pulmonary embolus. IMPRESSION: 1. No evidence for a pulmonary embolus. 2. Stable cardiomegaly. No evidence for pulmonary edema. 3. Mild mediastinal lymphadenopathy has improved. 4. Moderate hiatus hernia, unchanged. 5. No new focal lung consolidations to suggest a pneumonia. ACT 112: Negative or not required by law. Electronically signed by: Guilherme Rome M.D. 10/26/2022 10:48 AM
[2022-10-26] MEDS: POLYETHYLENE (MIRALAX) 17 GM PACK PO PRN (14:56)
[2022-10-26 17:23] LABS: Partial Thromboplastin Ratio 2.6
[2022-10-26] MEDS: WARFARIN SOD 5 MG TAB PO SCH (17:25)
[2022-10-26 17:29] LABS: Partial Thromboplastin Time 74.6 Seconds (21.0-31.0)
--- NOTE | 2022-10-26 19:53 | Electrocardiogram Report ---
Test Reason : Blood Pressure : / mmHG Vent. Rate : 134 BPM Atrial Rate : 000 BPM P-R Int : 000 ms QRS Dur : 098 ms QT Int : 330 ms P-R-T Axes : 000 -56 107 degrees QTc Int : 492 ms Atrial fibrillation with rapid ventricular response Left anterior fascicular block Minimal voltage criteria for LVH, may be normal variant Abnormal ECG When compared with ECG of 05-OCT-2022 05:39, Atrial fibrillation has replaced Sinus rhythm Confirmed by Roger Verdin ([id number]) on 10/26/2022 7:52:57 PM Referred By: REFERRED SELF Confirmed By:Roger Verdin
--- NOTE | 2022-10-26 20:09 | Electrocardiogram Report ---
Test Reason : Blood Pressure : / mmHG Vent. Rate : 118 BPM Atrial Rate : 120 BPM P-R Int : 000 ms QRS Dur : 100 ms QT Int : 354 ms P-R-T Axes : 000 -62 138 degrees QTc Int : 496 ms Atrial fibrillation with rapid ventricular response Left anterior fascicular block Nonspecific ST and T wave abnormality Abnormal ECG When compared with ECG of 23-OCT-2022 18:19, No significant change Confirmed by Roger Verdin ([id number]) on 10/26/2022 8:08:36 PM Referred By: REFERRED SELF Confirmed By:Roger Verdin
--- NOTE | 2022-10-26 21:10 | Electrocardiogram Report ---
Test Reason : Blood Pressure : / mmHG Vent. Rate : 101 BPM Atrial Rate : 147 BPM P-R Int : 000 ms QRS Dur : 110 ms QT Int : 394 ms P-R-T Axes : 000 -53 041 degrees QTc Int : 510 ms Atrial fibrillation with rapid ventricular response Left anterior fascicular block Nonspecific ST abnormality Abnormal ECG When compared with ECG of 24-OCT-2022 06:17, Nonspecific T wave abnormality no longer evident in Inferior leads Confirmed by Roger Verdin ([id number]) on 10/26/2022 9:10:16 PM Referred By: REFERRED SELF Confirmed By:Roger Verdin
[2022-10-26] MEDS: ATORVASTATIN 20 MG TAB PO SCH (21:13)
--- NOTE | 2022-10-26 22:39 | Electrocardiogram Report ---
Test Reason : Blood Pressure : / mmHG Vent. Rate : 093 BPM Atrial Rate : 107 BPM P-R Int : 000 ms QRS Dur : 112 ms QT Int : 380 ms P-R-T Axes : 000 -58 -24 degrees QTc Int : 472 ms Atrial fibrillation Left anterior fascicular block Nonspecific ST abnormality Abnormal ECG When compared with ECG of 24-OCT-2022 16:15, No significant change was found Confirmed by Roger Verdin ([id number]) on 10/26/2022 10:39:32 PM Referred By: REFERRED SELF Confirmed By:Roger Verdin
[2022-10-27 00:58] LABS: Partial Thromboplastin Ratio 1.6
[2022-10-27 01:01] LABS: Partial Thromboplastin Time 45.1 Seconds (21.0-31.0)
[2022-10-27] MEDS: AMIODARONE / D5W 360 MG/200 ML BAG IV SCH (06:15)
[2022-10-27] MEDS: UMECLIDINIUM/VILANTEROL 62.5/25MCG 7 PUFFS/INHALER INH SCH (08:19)
[2022-10-27] MEDS: FLUTICASONE FUROATE 100MCG 14 PUFFS/INHALER INH SCH (08:19)
[2022-10-27] MEDS: METOPROLOL SUCC 25MG EXT REL TAB PO SCH ×2 (08:20→21:09)
[2022-10-27] MEDS: FAMOTIDINE 20 MG TAB PO SCH ×2 (08:20→20:36)
[2022-10-27] MEDS: AMIODARONE 200 MG TAB PO SCH ×2 (08:20→16:28)
[2022-10-27] MEDS: SEVELAMER HCL 800 MG TABLET PO SCH ×3 (08:20→16:28)
[2022-10-27] MEDS: ASPIRIN 81 MG ECTAB PO SCH (08:20)
[2022-10-27] MEDS: PANTOprazole 40 MG TAB PO SCH (08:21)
[2022-10-27] MEDS: NEPHROCAPS PO SCH (08:21)
[2022-10-27] MEDS: ISOSORBIDE MONO EXTENDED REL 30 MG TABCR PO SCH (08:21)
[2022-10-27] MEDS: INSULIN ASPART PER UNIT CHARGE SC SCH ×3 (08:21→16:09)
--- NOTE | 2022-10-27 08:40 | Nephrology Progress Note ---
Date of Service October 27, 2022 Assessment & Plan (1) Rapid atrial fibrillation: Plan: * On Amiodarone and Heparin gtt * Rhythm is irregular, HR 90's. Patient remains on anticoagulation * LE doppler 10/25/22 was negative for DVT * 10/26/22 Chest CTA - negative for PE * 10/23/22 TSH 1.8 (2) End-stage renal disease on hemodialysis: Plan: * EDW has been reduced to 62 kg in the outpatient setting * Outpatient HD Rx: [facility] (MWF 3.25 hr, F-180NR, Qb 350/Qd 600, 2K 2Ca, Na137, HCO3 36, EDW 62kg) * 2.6 L UF obtained during HD yesterday * Volume status and electrolyte balance are acceptable. Will plan next HD in am (3) Anemia: Plan: * Hgb is within target 10-11 g/dL range * 10/26/22 Iron saturation < 12%. Will IV iron provided w/ HD yesterday (4) Sleep apnea: Plan: * Nocturnal CPAP as per primary service Admission and Anticipated Discharge Date Admission Date: October 23, 2022 Subjective Ms. Ward was evaluated in her hospital room this morning. She was breathing comfortably flat in bed on RA. Ms. Ward denied dyspnea, palpitations or angina Review of Systems Constitutional: no fever Eyes: no problem reported Ear, Nose, Mouth, Throat: no problem reported Respiratory: no cough and no dyspnea Cardiovascular: no chest pain Gastrointestinal: no abdominal pain, no vomiting and no diarrhea/loose stools Physical Exam Constitutional: + frail appearing; not in distress Eyes: PERRL, conjunctivae normal, anicteric sclerae ENMT: external ear and nose normal, oropharynx normal Respiratory: normal respiratory effort, lungs clear to auscultation Cardiovascular: Rate/Rhythm: + irregularly irregular Extremities: + AV fistula (+ bruit) Gastrointestinal (Abdomen): normal bowel sounds, soft, nontender, no hepatosplenomegaly Neurologic: Speech / Cognition: normal speech and normal cognition Psychiatric: Affect: euthymic affect Results & Data Vital Signs (Past 12 Hours) Vital Signs Temp Pulse Pulse Resp BP Pulse Ox O2 Del Method 10/27/22 08:01 37.0 C 92 H 16 127/83 99 Room Air 10/27/22 03:04 36.8 C 73 18 103/74 100 CPAP 10/26/22 23:29 97 H 19 122/89 93 CPAP 10/26/22 22:05 99 H O2 Flow Rate 10/27/22 08:01 10/27/22 03:04 2.0 10/26/22 23:29 10/26/22 22:05 Laboratory Results Laboratory Tests 10/27/22 10/27/22 08:17 08:17 WBC 5.06 Hgb 11.6 L Hct 38.6 Plt Count 181 Sodium 137 Potassium 4.6 Chloride 98 Carbon Dioxide 29 BUN 20 Creatinine 4.19 H D Glucose 116 H PG Care Time/CCT Total # of Minutes Spent Total Time Spent with Patient: Total time spent is greater than 50% in coordination of care (as documented) at patient's floor/unit and/or counseling patient: Coding Level of Care Code 17006 SUB INP/OBS CARE 3/50MIN Diagnoses Rapid atrial fibrillation I48.91 End-stage renal disease on hemodialysis N18.6; Z99.2 Anemia D64.9 Anemia type: unspecified type Sleep apnea G47.30 (3) Anemia Anemia type: unspecified type Qualified Code(s): D64.9 - Anemia, unspecified
[2022-10-27 08:44] LABS: Basophils # (auto) 0.04 K/uL (0.00-0.20); Basophils % (auto) 0.8 %; Eosinophils # (auto) 0.19 K/uL (0.00-0.50); Eosinophils % (auto) 3.8 %; Hematocrit (blood only) 38.6 % (37.0-47.0); Hemoglobin 11.6 g/dl (12.0-16.0); Immature Granulocytes # (auto) 0.02 K/uL (0.01-0.20); Immature Granulocytes % (auto) 0.4 %; Lymphocytes % (auto) 21.7 %; Mean Corpuscular Hemoglobin 26.5 pg (25.0-34.0); Mean Corpuscular Hgb Conc 30.1 g/dL (32.0-36.0); Mean Corpuscular Volume 88.1 fL (80.0-100.0); Mean Platelet Volume 10.8 fL (9.4-12.4); Monocytes % (auto) 9.9 %; Neutrophils # (auto) 3.21 K/uL (1.40-6.50); Neutrophils % (auto) 63.4 %; Platelet Count 181 K/uL (130-400); RDW Coefficient of Variation 15.7 % (11.5-14.5); RDW Standard Deviation 50.2 fL (36.4-46.3); Red Blood Count 4.38 M/uL (4.20-5.40); White Blood Count 5.06 K/ul (4.8-10.8)
[2022-10-27 09:03] LABS: BUN Creatinine Ratio 4.8 (10-20); Calcium 9.4 mg/dl (8.6-10.3); Creatinine Clr Calc Pharmacy 9.5 ml/min; Est GFR (African American) 11.1 ml/min; Est GFR (Non-African American) 9.6 ml/min; Potassium 4.6 mmol/L (3.5-5.1)
[2022-10-27 09:12] LABS: INR 1.1 (0.9-1.1); Prothrombin Time 11.8 Seconds (9.0-12.0)
[2022-10-27 11:18] LABS: Partial Thromboplastin Ratio 1.7
--- NOTE | 2022-10-27 11:18 | Hospitalist Progress Note ---
Date of Service October 27, 2022 Assessment & Plan (1) Rapid atrial fibrillation: Plan: 77F with Past medical history significant for diastolic dysfunction (EF 60%, TTE 2022), valvular heart disease (mild AR/MR/TR), LAUREN on CPAP, pulmonary hypertension, HTN, hyperlipidemia, ESRD on HD, bronchial asthma, DM2 diet- controlled, GERD, comes because of not feeling well and found to be in rapid A- fib. Atrial fibrillation with RVR History of ESRD on HD, diastolic dysfunction, MAT. Underwent dialysis on the day of presentation; was found to have elevated heart rate; came to the ED. EKG on admission reviewed personally; atrial fibrillation with RVR; ventricular rate of 118. Was given dose of IV Cardizem and Lopressor; no improvement in heart rate. Patient was then started on amiodarone drip and was admitted to the hospital CTA chest personally reviewed no PE/infiltrate. Lower extremity Doppler did not show any DVT. Continues to be in atrial fibrillation; cardiology recommends to continue IV amiodarone intravenous infusion. Oral amiodarone and metoprolol started. Lipitor dose reduced to 20 mg. Also on heparin drip for anticoagulation; started on warfarinheparin bridge today. Will receive 5 mg of Coumadin today. Continue to monitor on telemetry. End-stage renal disease On Wednesday and Wednesday dialysis. She received 1 extra session of dialysis on October 25 as she had received IV amiodarone and heparin. Anemia of chronic disease Hemoglobin is stable. Around 11. Chronic diastolic CHF Valvular heart disease Cardiology on board; currently on Amio and heparin drip for A-fib. Obstructive sleep apnea CPAP with oxygen nightly Hypertension On amlodipine and Imdur Will monitor History of bronchial asthma Currently seems stable continue home inhalers Hyperlipidemia On statin GERD Pepcid Diabetes type 2 on insulin status scale DVT prophylaxis heparin drip/warfarin. Time spent evaluating patient, direct bedside care, chart review, placing orders, interpretation of diagnostic studies, discussion with consultants, patient, and family members, as well as other required patient management activities is 60 minutes Please note the above document was generated using voice recognition software. It may contain grammatical, syntax or spelling errors. Any formal questions or concerns about the content, text or information contained within the body of this dictation should be directly addressed to the provider for clarification Admission and Anticipated Discharge Date Admission Date: October 23, 2022 Subjective Patient seen and examined at bedside. She is lying on the bed comfortably. She denies chest pain, shortness of breath or abdominal pain. Telemetry shows atrial fibrillation with ventricular rate in 90s. She continues to be in heparin and amiodarone drip. Review of Systems Review of Systems: All systems reviewed & are unremarkable except as noted in Subjective Physical Exam Physical Exam: Constitutional: Alert orient x3; not in distress. Respiratory: Bilateral vesicular breath sound Cardiovascular: Irregular, no murmur, no edema Vessels: no JVD or carotid bruit Chest: normal inspection of chest Abdomen: normal bowel sounds, soft, nontender, no hepatosplenomegaly Musculoskeletal: no cyanosis or clubbing, extremities motor strength 5/5. Left AV fistula present. Skin: no rashes, warm and dry normal turgor Neurologic: PERRL, EOMI, accommodation nl, no face palsy, no dysarthria CN's II- XI intact bilaterally and moves all extremities Psychiatric: A+Ox3, euthymic affect Results & Data Results & Data Vital Signs (Past 12 Hours) Vital Signs Temp Pulse Resp BP Pulse Ox O2 Del Method O2 Flow Rate 10/27/22 08:01 37.0 C 92 H 16 127/83 99 Room Air 10/27/22 03:04 36.8 C 73 18 103/74 100 CPAP 2.0 10/26/22 23:29 97 H 19 122/89 93 CPAP Laboratory Results Laboratory Results WBC 5.06 K/ul (4.8-10.8) 10/27/22 08:17 RBC 4.38 M/uL (4.20-5.40) 10/27/22 08:17 Hgb 11.6 g/dl (12.0-16.0) L 10/27/22 08:17 Hct 38.6 % (37.0-47.0) 10/27/22 08:17 MCV 88.1 fL (80.0-100.0) 10/27/22 08:17 MCH 26.5 pg (25.0-34.0) 10/27/22 08:17 MCHC 30.1 g/dL (32.0-36.0) L 10/27/22 08:17 RDW Std Deviation 50.2 fL (36.4-46.3) H 10/27/22 08:17 RDW Coeff of Luis 15.7 % (11.5-14.5) H 10/27/22 08:17 Plt Count 181 K/uL (130-400) 10/27/22 08:17 MPV 10.8 fL (9.4-12.4) 10/27/22 08:17 Immature Gran % (Auto) 0.4 % 10/27/22 08:17 Neut % (Auto) 63.4 % 10/27/22 08:17 Lymph % (Auto) 21.7 % 10/27/22 08:17 [place] % (Auto) 9.9 % 10/27/22 08:17 Eos % (Auto) 3.8 % 10/27/22 08:17 Baso % (Auto) 0.8 % 10/27/22 08:17 Neut # (Auto) 3.21 K/uL (1.40-6.50) 10/27/22 08:17 Lymph # (Auto) 1.10 K/uL (1.20-3.40) L 10/27/22 08:17 [place] # (Auto) 0.50 K/uL (0.11-0.59) 10/27/22 08:17 Eos # (Auto) 0.19 K/uL (0.00-0.50) 10/27/22 08:17 Baso # (Auto) 0.04 K/uL (0.00-0.20) 10/27/22 08:17 Immature Gran # (Auto) 0.02 K/uL (0.01-0.20) 10/27/22 08:17 Absolute Nucleated RBC 0.02 K/uL (0.00-0.12) 10/24/22 05:13 Nucleated RBC % (auto) 0.3 % 10/24/22 05:13 PT 11.8 Seconds (9.0-12.0) 10/27/22 08:17 INR 1.1 (0.9-1.1) 10/27/22 08:17 APTT 45.1 Seconds (21.0-31.0) H* 10/26/22 23:37 PTT Ratio 1.6 10/26/22 23:37 Sodium 137 mmol/L (136-145) 10/27/22 08:17 Potassium 4.6 mmol/L (3.5-5.1) 10/27/22 08:17 Chloride 98 mmol/L (98-107) 10/27/22 08:17 Carbon Dioxide 29 mmol/L (21-32) 10/27/22 08:17 Anion Gap 10 (3-11) 10/27/22 08:17 BUN 20 mg/dl (6-23) 10/27/22 08:17 Creatinine 4.19 mg/dl (0.6-1.2) H D 10/27/22 08:17 Est Cr Clr Drug Dosing 9.5 ml/min 10/27/22 08:17 Est GFR ( Amer) 11.1 ml/min 10/27/22 08:17 Est GFR (Non-Af Amer) 9.6 ml/min 10/27/22 08:17 BUN/Creatinine Ratio 4.8 (10-20) L 10/27/22 08:17 Glucose 116 mg/dl (70-99(Fasting)) H 10/27/22 08:17 POC Glucose 116 mg/dl (70-99) H 10/27/22 11:01 Calcium 9.4 mg/dl (8.6-10.3) 10/27/22 08:17 Magnesium 2.1 mg/dl (1.7-2.4) 10/24/22 05:13 Iron 21 mcg/dl (35-150) L 10/26/22 08:06 TIBC 177 mcg/dl (250-450) L 10/26/22 08:06 Unsaturated IBC 156 mcg/dl (155-355) 10/26/22 08:06 Transferrin % Sat 12 % (15-50) L 10/26/22 08:06 Ferritin 1693.0 ng/ml (8-388) H 10/26/22 09:45 Total Bilirubin 0.5 mg/dl (0.2-1.0) 10/23/22 18:24 AST 18 U/L (13-39) 10/23/22 18:24 ALT 11 U/L (7-52) 10/23/22 18:24 Alkaline Phosphatase 141 U/L (34-104) H 10/23/22 18:24 Troponin I High Sens 48.4 pg/ml (0-14) H 10/24/22 16:30 Total Protein 7.5 gm/dl (6.0-8.3) 10/23/22 18:24 Albumin 4.1 gm/dl (3.4-5.0) 10/23/22 18:24 Globulin 3.4 gm/dl (2.5-4.0) 10/23/22 18:24 Albumin/Globulin Ratio 1.2 (0.9-2) 10/23/22 18:24 Lipase 59 U/L (11-82) 10/23/22 18:24 TSH 1.838 uIu/ml (0.300-4.500) 10/23/22 18:24 SARS-CoV-2, RNA, NAAT NEGATIVE (NEGATIVE) 10/23/22 19:11 Impressions Venous Doppler Study 10/25/22 08:41 ULTRASOUND BILATERAL LOWER EXTREMITY VENOUS CLINICAL HISTORY: Lower extremity edema. COMPARISON STUDY: No priors. TECHNIQUE: Portable real-time, grayscale, and color Doppler sonography of the deep veins of the right and left lower extremity was performed from the inguinal crease to the calf. Compression and augmentation were utilized. FINDINGS: There is no sonographic evidence of deep venous thrombosis identified in the right or left lower extremity. The common femoral, superficial femoral, and popliteal veins are patent and normally compressible bilaterally. The greater saphenous vein and the profunda femoris vein at the junction with the common femoral vein are clear in both legs. The visualized calf veins are patent bilaterally. IMPRESSION: There is no sonographic evidence of deep venous thrombosis identified in the right or left lower extremity. ACT 112: Negative or not required by law. Electronically signed by: Kwan Gonzalez M.D. 10/25/2022 8:48 AM Chest X-Ray 10/25/22 09:19 SINGLE VIEW CHEST CLINICAL HISTORY: Congestive heart failure. FINDINGS: An AP, portable, upright chest radiograph is compared to study dated 10/23/2022 and correlated with chest CT dated 10/05/2022. There is a moderate to large hiatal hernia. Enlargement of the right mediastinal contours consistent with lymphadenopathy when correlated with the prior chest CT. The heart is enlarged noting atherosclerotic calcification of the thoracic aorta. There is pulmonary vascular congestion and mild interstitial edema. There are small pleural effusions with dependent consolidation. No pneumothorax is seen. The skeletal structures are osteopenic. The bony thorax is grossly intact. IMPRESSION: 1. Cardiomegaly with evidence of congestive failure and mild pulmonary edema. 2. Small pleural effusions with dependent consolidation. ACT 112: Negative or not required by law. Electronically signed by: Kwan Gonzalez M.D. 10/25/2022 10:17 AM Chest CTA 10/26/22 09:34 CHEST CTA for PULMONARY ARTERIES CT DOSE: 763.42 mGy.cm HISTORY: Shortness of breath. TECHNIQUE: Multiaxial CT images of the chest were performed following the intravenous administration of contrast to evaluate the pulmonary arteries. 3D/Maximal intensity projection images were also obtained. Sagittal and coronal reformations were also reviewed. A dose lowering technique was utilized adhering to the principles of ALARA. COMPARISON STUDY: Chest CT 10/05/2022. FINDINGS: The central airways are patent. No pneumothorax. No pleural effusions. A few bibasilar linear densities favor subsegmental atelectasis. Otherwise, no focal lung consolidations to suggest a pneumonia. No evidence for pulmonary edema. No acute fractures identified. Limited views of the upper abdomen demonstrate a normal liver, spleen, and visualized adrenal glands. Multinodular thyroid goiter again noted. Normal caliber esophagus. There is a moderate hiatus hernia, unchanged. The heart remains enlarged. No pericardial effusion. Mild mediastinal lymphadenopathy has improved. No hilar lymphadenopathy. Leftward deviation of the proximal trachea due to the large right thyroid goiter, unchanged. Normal caliber thoracic aorta with no evidence for a dissection. Severe coronary artery calcifications are noted. No filling defects within the pulmonary arteries to suggest a pulmonary embolus. IMPRESSION: 1. No evidence for a pulmonary embolus. 2. Stable cardiomegaly. No evidence for pulmonary edema. 3. Mild mediastinal lymphadenopathy has improved. 4. Moderate hiatus hernia, unchanged. 5. No new focal lung consolidations to suggest a pneumonia. ACT 112: Negative or not required by law. Electronically signed by: Guilherme Rome M.D. 10/26/2022 10:48 AM
[2022-10-27 11:35] LABS: Partial Thromboplastin Time 48.4 Seconds (21.0-31.0)
[2022-10-27] MEDS: HEPARIN SODIUM/DEXTROSE 25,000 UNITS/500 ML BAG IV SCH (11:53)
--- NOTE | 2022-10-27 14:00 | Cardiology Progress Note ---
Date of Service October 27, 2022 Assessment & Plan (1) Rapid atrial fibrillation: Plan: -Hold amlodipine due to hypotension. -Metoprolol succinate 75 mg twice daily for rate control. -Discontinue IV amiodarone. Continue oral amiodarone 200 mg twice daily. -Continue heparin infusion. INR 1.1 today having received initial dose of Coumadin 5 mg on 10/26/2022. Continue 5 mg of Coumadin daily for now. -Discussed treatment options with patient including transesophageal echocardiogram guided direct-current cardioversion. Based on patient preference. We will continue rate control and anticoagulation. If patient does not revert to sinus rhythm after 4 weeks of uninterrupted therapeutic anticoagulation, will plan for outpatient cardioversion. Patient to remain in hospital pending INR reaching goal of greater than or equal to 2. Admission and Anticipated Discharge Date Admission Date: October 23, 2022 Subjective Patient seen in cardiology follow-up. Notes feeling comfortable today. Underwent dialysis yesterday 10/26/2022. Telemetry reveals ongoing atrial fibrillation/flutter with ventricular rates in the range of 90 to 100 bpm at rest. Physical Exam Constitutional: WD/WN, vitals as above Eyes: PERRL, conjunctivae normal, anicteric sclerae Cardiovascular: Rate/Rhythm: + tachycardic and + irregularly irregular Heart Sounds: + murmur (1/6 systolic murmur) Extremities: + AV fistula (Left upper extremity AV fistula with appropriate auscultative sounds); no edema Gastrointestinal (Abdomen): normal bowel sounds, soft, nontender, no hepatosplenomegaly Neurologic: PERRL, EOMI, accommodation nl, no face palsy, no dysarthria Results & Data Vital Signs (Past 12 Hours) Vital Signs Temp Pulse Pulse Resp BP Pulse Ox O2 Del Method 10/27/22 11:56 36.7 C 90 16 109/63 94 Room Air 10/27/22 11:30 96 H 10/27/22 08:01 37.0 C 92 H 16 127/83 99 Room Air 10/27/22 03:04 36.8 C 73 18 103/74 100 CPAP O2 Flow Rate 10/27/22 11:56 10/27/22 11:30 10/27/22 08:01 10/27/22 03:04 2.0 Laboratory Results Coagulation 10/26/22 10/26/22 10/27/22 Range/Units 15:58 23:37 08:17 PT 11.8 (9.0-12.0) Seconds APTT 74.6 H* 45.1 H* (21.0-31.0) Seconds 10/27/22 Range/Units 08:17 PT (9.0-12.0) Seconds APTT 48.4 H* (21.0-31.0) Seconds CBC 10/27/22 Range/Units 08:17 WBC 5.06 (4.8-10.8) K/ul RBC 4.38 (4.20-5.40) M/uL Hgb 11.6 L (12.0-16.0) g/dl Hct 38.6 (37.0-47.0) % Plt Count 181 (130-400) K/uL Neut # (Auto) 3.21 (1.40-6.50) K/uL Lymph # (Auto) 1.10 L (1.20-3.40) K/uL [place] # (Auto) 0.50 (0.11-0.59) K/uL Eos # (Auto) 0.19 (0.00-0.50) K/uL Baso # (Auto) 0.04 (0.00-0.20) K/uL Comprehensive Metabolic Panel 10/27/22 Range/Units 08:17 Sodium 137 (136-145) mmol/L Potassium 4.6 (3.5-5.1) mmol/L Chloride 98 (98-107) mmol/L Carbon Dioxide 29 (21-32) mmol/L BUN 20 (6-23) mg/dl Creatinine 4.19 H D (0.6-1.2) mg/dl Glucose 116 H (70-99(Fasting)) mg/dl Calcium 9.4 (8.6-10.3) mg/dl Intake and Output 10/26/22 10/27/22 10/27/22 22:59 06:59 14:59 Intake Total 777.225 / 1097.042 200 / 1097.042 219.416 / 219.416 Output Total 2 / 2 Balance 775.225 / 1095.042 200 / 1095.042 219.416 / 219.416 Intake: IV 337.225 / 657.042 200 / 657.042 219.416 / 219.416 Amiodarone / D5w 360 mg In 200 187.875 / 387.875 200 / 387.875 ml @ 1 MG/MIN 33.333 mls/hr IV .Q6H RIVAS Rx#:[id number] Heparin Sodium/Dextrose 25,000 149.35 / 269.167 219.416 / 219.416 units In 500 ml @ 700 UNITS/HR 14 mls/hr IV .Q24H RIVAS Rx#: [id number] Oral 440 / 440 0 / 440 Output: # Bowel Movements 2 / 2 Other: # Unmeasured Voids 1 Weight 65.1 kg Weight Measurement Method Built in [facility] Diagnostic Findings CT angiogram of the chest performed 10/26/2022 revealed no evidence of pulmonary embolism: Moderate hiatal hernia noted, mild mediastinal lymphadenopathy had improved compared to previous study, no pulmonary edema.
[2022-10-27] MEDS: WARFARIN SOD 5 MG TAB PO SCH (16:27)
[2022-10-27] MEDS: ATORVASTATIN 20 MG TAB PO SCH (20:36)
[2022-10-28] MEDS: ONDANSETRON INJ 2 MG/ML 2 ML VIAL IV PRN (01:45)
[2022-10-28] MEDS ORDERED: PANTOPRAZOLE BOLUS/DRIP IV STA (02:09)
[2022-10-28] MEDS ORDERED: PANTOprazole 80 MG in DEXTROSE 5% 100 ML IV ONE (02:30)
[2022-10-28] MEDS: PANTOprazole 40 MG in DEXTROSE 5% 100 ML IV SCH ×5 (03:11→23:58)
[2022-10-28 03:18] LABS: Hemoglobin 10.8 g/dl (12.0-16.0)
[2022-10-28] MEDS ORDERED: SODIUM CHLORIDE 0.9% 1,000 ML IV PRN (07:00)
[2022-10-28] MEDS ORDERED: IRON SUCROSE 200 MG in SYRINGE 0 ML IV ONE (07:00)
[2022-10-28] MEDS: METOPROLOL SUCC 25MG EXT REL TAB PO SCH (07:57)
[2022-10-28] MEDS: UMECLIDINIUM/VILANTEROL 62.5/25MCG 7 PUFFS/INHALER INH SCH (07:58)
[2022-10-28] MEDS: SEVELAMER HCL 800 MG TABLET PO SCH ×3 (07:58→16:46)
[2022-10-28] MEDS: FLUTICASONE FUROATE 100MCG 14 PUFFS/INHALER INH SCH (07:58)
[2022-10-28] MEDS: FAMOTIDINE 20 MG TAB PO SCH ×2 (07:58→20:17)
[2022-10-28] MEDS: ISOSORBIDE MONO EXTENDED REL 30 MG TABCR PO SCH (07:59)
[2022-10-28] MEDS: AMIODARONE 200 MG TAB PO SCH (07:59)
[2022-10-28] MEDS: NEPHROCAPS PO SCH (08:00)
--- NOTE | 2022-10-28 09:01 | Nephrology Progress Note ---
Date of Service October 28, 2022 Assessment & Plan (1) Rapid atrial fibrillation: Plan: * On Heparin gtt and oral Amiodarone * Rhythm is irregular, HR 90's. INR pending * LE doppler 10/25/22 was negative for DVT * 10/26/22 Chest CTA - negative for PE * 10/23/22 TSH 1.8 (2) End-stage renal disease on hemodialysis: Plan: * EDW has been reduced to 62 kg in the outpatient setting * Outpatient HD Rx: [facility] (MWF 3.25 hr, F-180NR, Qb 350/Qd 600, 2K 2Ca, Na137, HCO3 36, EDW 62kg) * Will provide HD today for continued UF. Orders have been placed in EMR and HD RN notified (3) Anemia: Plan: * Hgb is within target 10-11 g/dL range * 10/26/22 Iron saturation < 12%. Will provide IV iron w/ HD today (4) Sleep apnea: Plan: * Nocturnal CPAP as per primary service Admission and Anticipated Discharge Date Admission Date: October 23, 2022 Subjective Ms. Ward was evaluated in her hospital room this morning. She was breathing comfortably flat in bed on RA. Ms. Ward denied dyspnea, palpitations or angina. She does complain of nausea and suffered one episode of emesis last evening Review of Systems Constitutional: no fever Eyes: no problem reported Ear, Nose, Mouth, Throat: no problem reported Respiratory: no cough and no dyspnea Cardiovascular: no chest pain Gastrointestinal: no abdominal pain, no vomiting and no diarrhea/loose stools Physical Exam Constitutional: + frail appearing; not in distress Eyes: PERRL, conjunctivae normal, anicteric sclerae ENMT: external ear and nose normal, oropharynx normal Respiratory: normal respiratory effort, lungs clear to auscultation Cardiovascular: Rate/Rhythm: + irregularly irregular Extremities: + AV fistula (+ bruit) Gastrointestinal (Abdomen): normal bowel sounds, soft, nontender, no hepatosplenomegaly Neurologic: Speech / Cognition: normal speech and normal cognition Psychiatric: Affect: euthymic affect Results & Data Vital Signs (Past 12 Hours) Vital Signs Temp Pulse Pulse Resp BP Pulse Ox O2 Del Method 10/28/22 08:13 Room Air 10/28/22 07:00 36.8 C 102 H 16 120/63 96 CPAP 10/28/22 03:05 36.9 C 100 H 19 116/84 100 CPAP 10/27/22 22:05 112 H 10/27/22 23:07 36.8 C 95 H 18 122/76 100 CPAP O2 Flow Rate 10/28/22 08:13 10/28/22 07:00 10/28/22 03:05 2.0 10/27/22 22:05 10/27/22 23:07 2.0 Laboratory Results Laboratory Tests 10/28/22 02:42 Hgb 10.8 L Hct 35.0 L PG Care Time/CCT Total # of Minutes Spent Total Time Spent with Patient: Total time spent is greater than 50% in coordination of care (as documented) at patient's floor/unit and/or counseling patient: Coding Level of Care Code 18087 SUB INP/OBS CARE 3/50MIN Diagnoses Rapid atrial fibrillation I48.91 End-stage renal disease on hemodialysis N18.6; Z99.2 Anemia D64.9 Anemia type: unspecified type Sleep apnea G47.30 (3) Anemia Anemia type: unspecified type Qualified Code(s): D64.9 - Anemia, unspecified
--- NOTE | 2022-10-28 10:23 | Cardiology Progress Note ---
Date of Service October 28, 2022 Assessment & Plan (1) Rapid atrial fibrillation: Plan: -Hold amlodipine due to hypotension. -Metoprolol succinate 75 mg twice daily for rate control. -IV amiodarone discontinued on 10/27/2022 in favor of oral amiodarone 200 mg twice daily, however given need to discontinue anticoagulation, will hold amiodarone for now in an effort to not pharmacologically convert her to sinus rhythm while not anticoagulated. -Heparin on hold. -With regards to anemia, patient did received transfusion on her recent hospital stays in August and September with postoperative blood loss felt to be present at time of knee replacement. Iron deficiency noted this admission with iron studies performed on 08/14. -As was first noted at the time of her initial cardiology consultation, treatment for atrial fibrillation limited due to her anemia, and for now anticoagulation has been placed on hold. Admission and Anticipated Discharge Date Admission Date: October 23, 2022 Subjective Patient without any subjective complaint at the time my assessment. Telemetry reveals ongoing atrial fibrillation/flutter with average rate at right around 100 bpm at rest. Reportedly overnight she had experienced approximately 300 mL of what was described as coffee-ground emesis prompting discontinuation of her heparin infusion, initiation of Protonix and a GI consult has been placed. Hemoglobin stable thus far. Physical Exam Constitutional: WD/WN, vitals as above Eyes: PERRL, conjunctivae normal, anicteric sclerae Cardiovascular: Rate/Rhythm: + tachycardic and + irregularly irregular Heart Sounds: + murmur (1/6 systolic murmur) Extremities: + AV fistula (Left upper extremity AV fistula with appropriate auscultative sounds); no edema Gastrointestinal (Abdomen): normal bowel sounds, soft, nontender, no hepatosplenomegaly Neurologic: PERRL, EOMI, accommodation nl, no face palsy, no dysarthria Results & Data Vital Signs (Past 12 Hours) Vital Signs Temp Pulse Pulse Resp BP Pulse Ox O2 Del Method 10/28/22 09:03 99 H 10/28/22 08:13 Room Air 10/28/22 07:00 36.8 C 102 H 16 120/63 96 CPAP 10/28/22 03:05 36.9 C 100 H 19 116/84 100 CPAP 10/27/22 23:07 36.8 C 95 H 18 122/76 100 CPAP O2 Flow Rate 10/28/22 09:03 10/28/22 08:13 10/28/22 07:00 10/28/22 03:05 2.0 10/27/22 23:07 2.0
[2022-10-28 12:18] LABS: INR 1.3 (0.9-1.1); Partial Thromboplastin Ratio 1.3; Partial Thromboplastin Time 36.5 Seconds (21.0-31.0); Prothrombin Time 13.8 Seconds (9.0-12.0)
[2022-10-28 12:23] LABS: Calcium 9.3 mg/dl (8.6-10.3); Potassium 5.1 mmol/L (3.5-5.1)
[2022-10-28 12:36] LABS: BUN Creatinine Ratio 6.3 (10-20); Creatinine Clr Calc Pharmacy 6.2 ml/min; Est GFR (African American) 6.7 ml/min; Est GFR (Non-African American) 5.8 ml/min
--- NOTE | 2022-10-28 14:30 | Gastrointestinal Consultation ---
Date of Consultation October 28, 2022 Assessment & Plan (1) Rapid atrial fibrillation: (2) Anemia: Pt is a 77 yo female w hx of ESRD on HD, admitted w AFib, noted to be anemic w black/coffee ground emesis last night. Abd exam benign wo tenderness nor does she have n/v, no reports of melena. Hx of gastritis, hiatal hernia and adenomatous polyps seen in EGD/colonoscopy in 2021. - PPI IV BID - Monitor blood ct and transfuse for goal >7 - Diet as tolerated today - Keep NPO after midnight, plan for EGD evaluation on 10/29 Supervising Physician Co-Signing Physician Notes I personally saw and evaluated the patient on 10/28/2022 with OSMAR Galdamez and agree with her findings and plan of care. 77 y/o F with history of ESRD on IHD, atrial fibrillation (was on coumadin and heparin gtt now on hold) admitted with atrial fibrillation. Last night she was noted to have 300 cc of dark ground emesis. No melena or hematochezia. She denies NSAID use and states she was only taking tylenol after a recent knee surgery. Stools here are brown and she only had 1 episode of coffee ground emesis with none since. On exam abdomen is soft and non-tender. She had an EGD in 2021 with a hiatal hernia and gastritis and colonoscopy that year as well with 6 polyps removed. Her hgb here is very stable between 10-11 which is around her baseline without any major drop. INR 1.3. BUN is 40 but she is a dialysis patient and Cr today is 6.8. We will plan for EGD tomorrow. Ok for diet today as she has not had any bleeding since last evening. NPO at midnight tonight. Continue IV PPI 40 mg BID. Trend H/H and transfuse for hgb <7. Avoid all NSAIDs. Hold anticoagulation if safely able from a cardiac standpoint. Osiris Cooper, DO Gastroenterology and Hepatology History of Present Illness Reason for Consultation: Coffee ground emesis Requesting Physician: Dr. Hieu Rocha Attending Physician: Dr. Osiris Cooper History of Present Illness Pt is a 77 yo female w PMHx as noted below admitted w Afib, managed w Amiodarone. She was noted to be anemic and had black colored emesis last night of about 350mL, concerning for coffee ground appearing ? GI bleed. She denies any abd pain, n/v currently. No melena reported. H/H 10/35. INR 1.3. She has ESRD and on hemodialysis thus BUN elevated. Hx of EGD in 2021 w findings of hiatal hernia and gastritis, Hpylori negative. Colonoscopy in 2021 w findings of tubular adenoma and hyperplastic polyps, recall in 3 yrs. Allergies Allergy/AdvReac Type Severity Reaction Status Date / Time pollen extracts Allergy Mild sneezing, Verified 10/23/22 19:18 watery eyes Home Medications Medication Instructions Recorded Confirmed Type atorvastatin 40 mg tablet 40 mg PO HS 11/10/18 10/23/22 History famotidine 20 mg tablet 20 mg PO AMHS 05/28/21 10/23/22 History lidocaine-prilocaine 2.5 %-2.5 % See Rx Instructions topical 05/28/21 10/23/22 History topical cream .COMPLEX nitroglycerin 0.4 mg sublingual 0.4 mg sublingual Q5M PRN Chest 05/28/21 10/23/22 History tablet (Nitrostat) Pain pantoprazole 40 mg tablet,delayed 40 mg PO DAILYBB 05/28/21 10/23/22 History release polyethylene glycol 3350 17 gram 17 g PO BID PRN Constipation 05/28/21 10/23/22 History oral powder packet (Miralax) triamcinolone acetonide 0.025 % 1 applic topical BID PRN Rash 05/28/21 10/23/22 History lotion fluticasone fur. 100 mcg-umeclid 1 inh inhalation QAM 10/14/21 10/23/22 History 62.5 mcg-vilant 25 mcg inhalat.powder (Trelegy Ellipta) albuterol sulfate 90 mcg/actuation 2 puff inhalation Q6 PRN Wheezing 01/26/22 10/23/22 History aerosol inhaler (Ventolin HFA) fluticasone propionate 50 2 spray intranasal QAM PRN Allergy 01/26/22 10/23/22 History mcg/actuation nasal Symptoms spray,suspension isosorbide mononitrate 30 mg 30 mg PO QAM 01/26/22 10/23/22 History tablet,extended release 24 hr ondansetron HCl 4 mg tablet 4 mg PO Q8 PRN Nausea 01/26/22 10/23/22 History sevelamer carbonate 800 mg tablet 1,600 mg PO TIDM 01/26/22 10/23/22 History (Renvela) vit B complx, C-iron 8 mg-folic 1 tab PO QAM 01/26/22 10/23/22 History acid 800 mcg-D3 1,000 unit-zinc tablet (ProRenal) amlodipine 2.5 mg tablet 2.5 mg PO QAM 06/15/22 10/23/22 History montelukast 5 mg chewable tablet 10 mg PO DAILY PRN allergies 09/08/22 10/23/22 History (Singulair) aspirin 81 mg tablet,delayed 81 mg PO DAILY 10/04/22 10/23/22 History release tramadol 50 mg tablet 50 mg PO DAILY PRN Pain #20 tabs 10/11/22 10/23/22 Rx Patient History Medical History Anemia of chronic disease Aortic stenosis Mild aortic stenosis (ASHLI 1.3-1.4cm2, MG 15.3mmhg) per 03/2022 echo Asthma, moderate persistent AV fistula LUE Bilateral primary osteoarthritis of knee Chronic anemia Hx iron infusions Chronic anemia Diabetes mellitus diet controlled End-stage renal disease on hemodialysis MWF ([facility]) GERD (gastroesophageal reflux disease) Gout History of COVID-19 Most recent 10/2021 ([facility])- symptoms resolved Hyperlipidemia Hypertension Osteoarthritis of knees, bilateral RSV (respiratory syncytial virus pneumonia) Sleep apnea CPAP + 2L HS Surgical History H/O partial thyroidectomy H/O: hysterectomy SANDRA BSO History of appendectomy History of cardiac cath 2017 ([facility])- no stents History of cataract surgery History of cholecystectomy History of colonoscopy History of esophagogastroduodenoscopy (EGD) 10/2021 History of lumbar surgery History of oral surgery salivary gland surgery History of tooth extraction all teeth removed S/P arteriovenous (AV) fistula creation Status post biopsy of kidney kidney disease Family History Daughter Cancer Breast Daughter Cancer Breast Daughter Hypertension Daughter Hypertension Father Diabetes Hypertension Mother Hypertension Brother Diabetes Brother Diabetes Sister Diabetes Sister Diabetes Sister Hypertension Sister Hypertension Other No family history of adverse response to anesthesia Social History Smoking Status: Never smoker Second Hand Exposure: No; Do You Dip or Chew Tobacco: No; Hx Alcohol Use: No Hx Substance Use: No Preferred Language: Japanese Communication Ability: Effective Communication Ability Comment: daughter states her mother can read/write/understand chinese Commercial [employer] Required: No Beliefs That Will Affect Care: None marital status: / Current Living Situation: Family Current Living Situation Comment: Lives with daughter Feels Safe at Home: Yes Assistive Devices: Cane and Walker Review of Systems Review of Systems: All systems reviewed & are unremarkable except as noted in HPI & below Physical Exam Constitutional: WD/WN, vitals as above well groomed, cooperative and comfortable Eyes: PERRL, conjunctivae normal, anicteric sclerae ENMT: external ear and nose normal, oropharynx normal Respiratory: normal respiratory effort, lungs clear to auscultation Cardiovascular: RRR, no murmur, no edema Gastrointestinal (Abdomen): normal bowel sounds, soft, nontender, no hepatosplenomegaly Skin: no rashes, warm and dry no jaundice Psychiatric: A+Ox3, euthymic affect Lymphatic: no lymphedema Results & Data Vital Signs (Past 12 Hours) Vital Signs Temp Pulse Pulse Resp BP BP Pulse Ox 10/28/22 14:00 115 H 97/60 L 10/28/22 13:30 71 92/62 L 10/28/22 12:30 73 104/53 L 10/28/22 12:00 85 97/48 L 10/28/22 13:00 72 95/51 L 10/28/22 11:42 82 95/60 L 10/28/22 11:28 36.5 C 104 H 10/28/22 11:00 36.9 C 89 18 134/66 97 10/28/22 09:03 99 H 10/28/22 08:13 10/28/22 07:00 36.8 C 102 H 16 120/63 96 10/28/22 03:05 36.9 C 100 H 19 116/84 100 O2 Del Method O2 Flow Rate 10/28/22 14:00 10/28/22 13:30 10/28/22 12:30 10/28/22 12:00 10/28/22 13:00 10/28/22 11:42 10/28/22 11:28 10/28/22 11:00 Room Air 10/28/22 09:03 10/28/22 08:13 Room Air 10/28/22 07:00 CPAP 10/28/22 03:05 CPAP 2.0 (2) Anemia Anemia type: unspecified type Qualified Code(s): D64.9 - Anemia, unspecified
--- NOTE | 2022-10-28 14:58 | Hospitalist Progress Note ---
Date of Service October 28, 2022 Assessment & Plan (1) Rapid atrial fibrillation: Plan: Patient is a 77F with H/O diastolic dysfunction (EF 60%, TTE 2022), valvular heart disease (mild AR/MR/TR), LAUREN on CPAP, pulmonary hypertension, HTN, hyperlipidemia, ESRD on HD, bronchial asthma, DM2 diet-controlled, GERD, comes because of not feeling well and found to be in rapid A-fib. Atrial fibrillation with RVR History of ESRD on HD, diastolic dysfunction, MAT. Underwent dialysis on the day of presentation; was found to have elevated heart rate; came to the ED. Normal TSH --CTA:No evidence for a pulmonary embolus. Stable cardiomegaly. No evidence for pulmonary edema. Mild mediastinal lymphadenopathy has improved. Moderate hiatus hernia, unchanged. No new focal lung consolidations to suggest a pneumonia. --Venous Doppler:There is no sonographic evidence of deep venous thrombosis identified in the right or left lower extremity. --ECHO: Moderate concentric LVH. No regional wall motion abnormality. EF 55%. Left atrium is severely dilated. Mild mitral regurgitation. LV diastolic function is abnormal. Mild pulmonary hypertension. Hold amlodipine due to hypotension Continue metoprolol succinate 75 mg twice a day Amiodarone 200 mg twice a day--held for now Anticoagulation with IV heparin, Coumadin on hold due to concern for GI bleed Appreciate cardiology input Anemia of chronic disease Concern for acute GI bleed H/O gastritis, hiatal hernia, adenomatous polyps Aspirin, anticoagulation held Continue IV Protonix Monitor H&H and transfuse as needed Clear liquid diet for now N.p.o. after midnight for EGD tomorrow End-stage renal disease On Wednesday and Wednesday dialysis. Continue dialysis as per Nephrology Chronic diastolic CHF Valvular heart disease Volume status being managed with dialysis Monitor Obstructive sleep apnea CPAP with oxygen nightly Hypertension Amlodipine on hold Continue isosorbide, metoprolol Monitor H/O Bronchial asthma Continue home inhalers Hyperlipidemia On statin GERD Continue PPI Prediabetes Diet control DVT Px: SCDs for now Resume heparin drip/warfarin as able Admission and Anticipated Discharge Date Admission Date: October 23, 2022 Subjective Patient is seen and examined at bedside States having coffee-ground emesis overnight Also reports having heartburn overnight which resolved this a.m. Plan for dialysis today Continue on Protonix drip Denies any bleeding issues currently No other complaints Review of Systems Review of Systems: All systems reviewed & are unremarkable except as noted in Subjective Physical Exam Physical Exam: Physical Exam: Vitals signs as noted above General Appearance:Moderately built and nourished, no apparent distress Head: normocephalic, Atraumatic Eyes: normal inspection, EOMI Neck: supple, Trachea midline Respiratory/Chest: Normal breath sounds, CTA, No accessory muscle use Cardiovascular: Irregularly irregular, No murmur Abdomen/GI:Soft, Non tender, Bowel sounds present Extremities/Musculoskeletal:normal inspection, Trace pedal edema Neurologic/Psych:Alert, awake, oriented, grossly no focal deficits Skin: normal color, warm Results & Data Results & Data Vital Signs (Past 12 Hours) Vital Signs Temp Pulse Pulse Resp BP BP Pulse Ox 10/28/22 14:00 115 H 97/60 L 10/28/22 13:30 71 92/62 L 10/28/22 12:30 73 104/53 L 10/28/22 12:00 85 97/48 L 10/28/22 13:00 72 95/51 L 10/28/22 11:42 82 95/60 L 10/28/22 11:28 36.5 C 104 H 10/28/22 11:00 36.9 C 89 18 134/66 97 10/28/22 09:03 99 H 10/28/22 08:13 10/28/22 07:00 36.8 C 102 H 16 120/63 96 10/28/22 03:05 36.9 C 100 H 19 116/84 100 O2 Del Method O2 Flow Rate 10/28/22 14:00 10/28/22 13:30 10/28/22 12:30 10/28/22 12:00 10/28/22 13:00 10/28/22 11:42 10/28/22 11:28 10/28/22 11:00 Room Air 10/28/22 09:03 10/28/22 08:13 Room Air 10/28/22 07:00 CPAP 10/28/22 03:05 CPAP 2.0 Laboratory Results Short CBC 10/28/22 Range/Units 02:42 Hgb 10.8 L (12.0-16.0) g/dl Hct 35.0 L (37.0-47.0) % BMP 10/28/22 11:39 Sodium 134 L Potassium 5.1 Chloride 97 L Carbon Dioxide 23 BUN 40 H D Creatinine 6.38 H* D Glucose 97 Calcium 9.3
[2022-10-28 16:21] LABS: Hematocrit (blood only) 40.9 % (37.0-47.0); Hemoglobin 12.3 g/dl (12.0-16.0)
--- NOTE | 2022-10-28 19:15 | Communication Note ---
Date of Service: October 28, 2022 I spoke to patient's daughter at length with regards to updates by phone.
[2022-10-28] MEDS: HEPARIN SODIUM/DEXTROSE 25,000 UNITS/500 ML BAG IV SCH (20:14)
[2022-10-28] MEDS: ATORVASTATIN 20 MG TAB PO SCH (20:16)
[2022-10-28] MEDS: METOPROLOL SUCC 50MG EXT REL TAB PO SCH (20:17)
[2022-10-29] MEDS: PANTOprazole 40 MG in DEXTROSE 5% 100 ML IV SCH (04:03)
[2022-10-29 07:09] LABS: Hematocrit (blood only) 38.8 % (37.0-47.0); Hemoglobin 11.7 g/dl (12.0-16.0); Mean Corpuscular Hemoglobin 26.3 pg (25.0-34.0); Mean Corpuscular Hgb Conc 30.2 g/dL (32.0-36.0); Mean Corpuscular Volume 87.2 fL (80.0-100.0); Platelet Count 160 K/uL (130-400); RDW Coefficient of Variation 15.7 % (11.5-14.5); RDW Standard Deviation 49.9 fL (36.4-46.3); Red Blood Count 4.45 M/uL (4.20-5.40); White Blood Count 5.52 K/ul (4.8-10.8)
[2022-10-29 07:28] LABS: INR 1.4 (0.9-1.1); Prothrombin Time 14.8 Seconds (9.0-12.0)
[2022-10-29 07:32] LABS: Calcium 9.3 mg/dl (8.6-10.3); Creatinine Clr Calc Pharmacy 9.1 ml/min; Est GFR (African American) 10.5 ml/min; Est GFR (Non-African American) 9.1 ml/min; Magnesium 2.1 mg/dl (1.7-2.4); Potassium 4.6 mmol/L (3.5-5.1)
--- NOTE | 2022-10-29 08:24 | Nephrology Progress Note ---
Date of Service October 29, 2022 Assessment & Plan (1) Rapid atrial fibrillation: Plan: * Rhythm remains irregular * LE doppler 10/25/22 was negative for DVT * 10/26/22 Chest CTA - negative for PE * 10/23/22 TSH 1.8 * Await further Cardiology input (2) End-stage renal disease on hemodialysis: Plan: * EDW has been reduced to 62 kg in the outpatient setting * Outpatient HD Rx: [facility] (MWF 3.25 hr, F-180NR, Qb 350/Qd 600, 2K 2Ca, Na137, HCO3 36, EDW 62kg) * Will provide HD today in am (3) Anemia: Plan: * Hgb is within target 10-11 g/dL range. Will continue to monitor * Await EGD results (4) Sleep apnea: Plan: * Nocturnal CPAP as per primary service Admission and Anticipated Discharge Date Admission Date: October 23, 2022 Subjective Ms. Ward was evaluated in her hospital room this morning. She was breathing on RA. Ms. Ward denied dyspnea, palpitations or angina. She denied abdominal discomfort or further episodes of hematemesis. Ms. Ward is awaiting EGD this morning Review of Systems Constitutional: no fever Eyes: no problem reported Ear, Nose, Mouth, Throat: no problem reported Respiratory: no cough and no dyspnea Cardiovascular: no chest pain Gastrointestinal: no abdominal pain, no vomiting and no diarrhea/loose stools Physical Exam 2 Constitutional: + frail appearing; not in distress Eyes: PERRL, conjunctivae normal, anicteric sclerae ENMT: external ear and nose normal, oropharynx normal Respiratory: normal respiratory effort, lungs clear to auscultation Cardiovascular: Rate/Rhythm: + irregularly irregular Extremities: + AV fistula (+ bruit) Gastrointestinal (Abdomen): normal bowel sounds, soft, nontender, no hepatosplenomegaly Neurologic: Speech / Cognition: normal speech and normal cognition Psychiatric: Affect: euthymic affect Results & Data Vital Signs (Past 12 Hours) Vital Signs Temp Pulse Resp BP Pulse Ox O2 Del Method O2 Flow Rate 10/29/22 03:09 36.7 C 110 H 19 106/77 98 CPAP 2.0 10/28/22 23:06 36.9 C 94 H 19 90/60 L 98 CPAP 2.0 Laboratory Results Laboratory Tests 10/29/22 10/29/22 05:38 05:38 WBC 5.52 Hgb 11.7 L Hct 38.8 Plt Count 160 Sodium 139 Potassium 4.6 Chloride 101 Carbon Dioxide 27 BUN 22 Creatinine 4.40 H D Glucose 93 PG Care Time/CCT Total # of Minutes Spent Total Time Spent with Patient: Total time spent is greater than 50% in coordination of care (as documented) at patient's floor/unit and/or counseling patient: Coding Level of Care Code 46440 SUB INP/OBS CARE 3/50MIN Diagnoses Rapid atrial fibrillation I48.91 End-stage renal disease on hemodialysis N18.6; Z99.2 Anemia D64.9 Anemia type: unspecified type Sleep apnea G47.30 (3) Anemia Anemia type: unspecified type Qualified Code(s): D64.9 - Anemia, unspecified
--- NOTE | 2022-10-29 08:48 | Gastroenterology Progress Note ---
Date of Service October 29, 2022 Assessment & Plan (1) Rapid atrial fibrillation: (2) Anemia: Plan: Pt is a 77 yo female w hx of ESRD on HD, admitted w AFib, noted to be anemic w black/coffee ground emesis 2 nights ago without recurrence. Abd exam benign wo tenderness nor does she have n/v, no reports of melena. Blood ct increased. Hx of gastritis, hiatal hernia and adenomatous polyps seen in EGD/colonoscopy in 2021. - Keep NPO; EGD today by Dr. Sarah Cooper - PPI IV BID - Monitor blood ct and transfuse for goal >7 - Further recs after EGD completed Admission and Anticipated Discharge Date Admission Date: October 23, 2022 Supervising Physician Co-Signing Physician Notes I personally saw and evaluated the patient on 10/29/2022 with OSMAR Galdamez and agree with her findings and plan of care. 77 y/o F with history of ESRD on IHD, atrial fibrillation (was on coumadin and heparin gtt now on hold) admitted with atrial fibrillation. She was noted to have 300 cc of dark ground emesis. No melena or hematochezia. She denies NSAID use and states she was only taking tylenol after a recent knee surgery. Stools here are brown and she only had 1 episode of coffee ground emesis with none since. On exam abdomen is soft and non-tender. She had an EGD in 2021 with a hiatal hernia and gastritis and colonoscopy that year as well with 6 polyps removed. Her hgb here is very stable between 10-11 which is around her baseline without any major drop. Plan for EGD today. Continue IV PPI 40 mg BID. Trend H/H and transfuse for hgb <7. Avoid all NSAIDs. Hold anticoagulation if safely able from a cardiac standpoint. Osiris Cooper, DO Gastroenterology and Hepatology Subjective Patient denies abdominal pain, nausea or vomiting symptoms overnight. She feels quite well, has been n.p.o. for scheduled EGD today. Review of Systems Review of Systems: All systems reviewed & are unremarkable except as noted in HPI & below Physical Exam Constitutional: WD/WN, vitals as above well groomed, cooperative and comfortable Eyes: PERRL, conjunctivae normal, anicteric sclerae ENMT: external ear and nose normal, oropharynx normal Respiratory: normal respiratory effort, lungs clear to auscultation Cardiovascular: RRR, no murmur, no edema Gastrointestinal (Abdomen): normal bowel sounds, soft, nontender, no hepatosplenomegaly Skin: no rashes, warm and dry no jaundice Psychiatric: A+Ox3, euthymic affect Lymphatic: no lymphedema Results & Data Vital Signs (Past 12 Hours) Vital Signs Temp Pulse Pulse Resp BP Pulse Ox O2 Del Method 10/29/22 08:29 36.7 C 108 H 108 H 18 114/81 94 Room Air 10/29/22 03:09 36.7 C 110 H 19 106/77 98 CPAP 10/28/22 23:06 36.9 C 94 H 19 90/60 L 98 CPAP O2 Flow Rate 10/29/22 08:29 10/29/22 03:09 2.0 10/28/22 23:06 2.0 (2) Anemia Anemia type: unspecified type Qualified Code(s): D64.9 - Anemia, unspecified
[2022-10-29] MEDS ORDERED: ONDANSETRON INJ 2 MG/ML 2 ML VIAL ONE (09:05)
[2022-10-29] MEDS ORDERED: GLYCOPYRROLATE 0.2 MG/ML VIAL ONE (09:05)
[2022-10-29] MEDS ORDERED: LIDOCAINE 2% 2 ML VIAL/AMP(20MG/ML) INFIL ONE (09:05)
[2022-10-29] MEDS ORDERED: PROPOFOL IV EMULSION 10 MG/ML 20 ML VIAL IV ONE (09:05)
--- NOTE | 2022-10-29 09:35 | Anesthesiology Consultation ---
Date of Service October 29, 2022 Assessment & Plan (1) Encounter for pre-operative examination: Chart Review Chart Review: Acceptable Risk for Surgery, Patient NOT seen in Pre Admission Testing and data entry processor initiated Consults Requested none ASA ASA3 Proposed Anesthesia Anesthesia Type: MAC History Surgery Operation Date: 10/29/22 16:30 Proposed Procedures p Esophagogastroduodenoscopy Allison Cooper, Height/Weight Height: 5 ft Weight: 66 kg Allergies Allergy/AdvReac Type Severity Reaction Status Date / Time pollen extracts Allergy Mild sneezing, Verified 10/29/22 09:31 watery eyes Medications Home Medications Medication Instructions Recorded Confirmed Last Taken atorvastatin 40 mg tablet 40 mg PO HS 11/10/18 10/23/22 10/22/22 famotidine 20 mg tablet 20 mg PO AMHS 05/28/21 10/23/22 10/23/22 08:00 lidocaine-prilocaine 2.5 %-2.5 % See Rx Instructions topical 05/28/21 10/23/22 09/07/22 topical cream .COMPLEX nitroglycerin 0.4 mg sublingual 0.4 mg sublingual Q5M PRN Chest 05/28/21 10/23/22 Unknown tablet (Nitrostat) Pain pantoprazole 40 mg tablet,delayed 40 mg PO DAILYBB 05/28/21 10/23/22 10/23/22 release polyethylene glycol 3350 17 gram 17 g PO BID PRN Constipation 05/28/21 10/23/22 09/04/22 oral powder packet (Miralax) triamcinolone acetonide 0.025 % 1 applic topical BID PRN Rash 05/28/21 10/23/22 Unknown lotion fluticasone fur. 100 mcg-umeclid 1 inh inhalation QAM 10/14/21 10/23/22 10/23/22 62.5 mcg-vilant 25 mcg inhalat.powder (Trelegy Ellipta) albuterol sulfate 90 mcg/actuation 2 puff inhalation Q6 PRN Wheezing 01/26/22 10/23/22 09/08/22 06:00 aerosol inhaler (Ventolin HFA) fluticasone propionate 50 2 spray intranasal QAM PRN Allergy 01/26/22 10/23/22 U nknown mcg/actuation nasal Symptoms spray,suspension isosorbide mononitrate 30 mg 30 mg PO QAM 01/26/22 10/23/22 10/23/22 tablet,extended release 24 hr ondansetron HCl 4 mg tablet 4 mg PO Q8 PRN Nausea 01/26/22 10/23/22 09/07/22 08:00 sevelamer carbonate 800 mg tablet 1,600 mg PO TIDM 01/26/22 10/23/22 10/23/22 12:00 (Renvela) vit B complx, C-iron 8 mg-folic 1 tab PO QAM 01/26/22 10/23/22 10/23/22 acid 800 mcg-D3 1,000 unit-zinc tablet (ProRenal) amlodipine 2.5 mg tablet 2.5 mg PO QAM 06/15/22 10/23/22 10/23/22 montelukast 5 mg chewable tablet 10 mg PO DAILY PRN allergies 09/08/22 10/23/22 Unknown (Singulair) aspirin 81 mg tablet,delayed 81 mg PO DAILY 10/04/22 10/23/22 10/23/22 release tramadol 50 mg tablet 50 mg PO DAILY PRN Pain #20 tabs 10/11/22 10/23/22 Unknown Active Medications Generic Name Dose Route Start Last Admin Trade Name Nhanq PRN Reason Stop Dose Admin Amlodipine Besylate 2.5 mg 10/24/22 09:00 10/26/22 09:19 Amlodipine Besylate 5 Mg Tab PO 11/23/22 08:59 Not Given QAM RIVAS Aspirin 81 mg 10/24/22 09:00 10/27/22 08:20 Aspirin 81 Mg Ectab PO 11/23/22 08:59 81 mg DAILY RIVAS Administration Atorvastatin Calcium 20 mg 10/26/22 21:00 10/28/22 20:16 Atorvastatin 20 Mg Tab PO 11/25/22 20:59 20 mg HS RIVAS Administration Famotidine 20 mg 10/24/22 09:00 10/28/22 20:17 Famotidine 20 Mg Tab PO 11/23/22 08:59 20 mg BID RIVAS Administration Fluticasone Furoate 1 puffs 10/24/22 09:00 10/28/22 07:58 Fluticasone Furoate 100mcg 14 Puffs/Inhaler INH 11/23/22 08:59 1 puffs DAILY RIVAS Administration Heparin Sodium/Dextrose 25,000 units in 500 mls @ 14 mls/hr 10/24/22 09:00 10/28/22 20:14 Heparin Sodium/Dextrose IV 11/23/22 08:59 Not Given .Q24H RIVAS Protocol 700 UNITS/HR Pantoprazole Sodium 40 mg/ 100 mls @ 20 mls/hr 10/28/22 02:50 10/29/22 04:03 Dextrose IV 11/27/22 02:49 8 mg/hr Q5H RIVAS 20 mls/hr Administration 8 MG/HR Isosorbide Mononitrate 30 mg 10/24/22 09:00 10/28/22 07:59 Isosorbide [place] Extended Rel 30 Mg Tabcr PO 11/23/22 08:59 30 mg QAM RIVAS Administration Metoprolol Succinate 100 mg 10/28/22 21:00 10/28/22 20:17 Metoprolol Succ 50mg Ext Rel Tab PO 11/27/22 20:59 100 mg BID IRVAS Administration Nitroglycerin 0.4 mg 10/23/22 22:35 10/24/22 16:14 Nitroglycerin Sl 0.4 Mg/Tab Tab SL 11/22/22 22:34 0.4 mg Q5M PRN Administration Chest Pain Ondansetron HCl 4 mg 10/23/22 22:35 10/28/22 01:45 Ondansetron Inj 2 Mg/Ml 2 Ml Vial IV 11/22/22 22:34 4 mg Q6H PRN Administration Nausea Polyethylene Glycol 17 gm 10/23/22 22:35 10/26/22 14:56 Polyethylene (Miralax) 17 Gm Pack PO 11/22/22 22:34 17 gm BID PRN Administration Constipation Sevelamer HCl 1,600 mg 10/24/22 08:00 10/28/22 16:46 Sevelamer Hcl 800 Mg Tablet PO 11/23/22 07:59 1,600 mg TIDM RIVAS Administration Umeclidinium/Vilanterol 1 puffs 10/24/22 09:00 10/28/22 07:58 Umeclidinium/Vilanterol 62.5/25mcg 7 Puffs/Inhaler INH 11/23/22 08:59 1 puffs DAILY RIVAS Administration Vitamin B Complex/Folic Acid 1 cap 10/24/22 09:00 10/28/22 08:00 Nephrocaps PO 11/23/22 08:59 1 cap QAM RIVAS Administration Past Medical History Medical History Anemia of chronic disease Aortic stenosis Mild aortic stenosis (ASHLI 1.3-1.4cm2, MG 15.3mmhg) per 03/2022 echo Asthma, moderate persistent AV fistula LUE Bilateral primary osteoarthritis of knee Chronic anemia Hx iron infusions Chronic anemia Diabetes mellitus diet controlled Encounter for pre-operative examination End-stage renal disease on hemodialysis MWF ([facility]) GERD (gastroesophageal reflux disease) Gout History of COVID-19 Most recent 10/2021 ([facility])- symptoms resolved Hyperlipidemia Hypertension Osteoarthritis of knees, bilateral RSV (respiratory syncytial virus pneumonia) Sleep apnea CPAP + 2L HS Past Family History Family History Daughter Cancer Breast Daughter Cancer Breast Daughter Hypertension Daughter Hypertension Father Diabetes Hypertension Mother Hypertension Brother Diabetes Brother Diabetes Sister Diabetes Sister Diabetes Sister Hypertension Sister Hypertension Other No family history of adverse response to anesthesia Past Surgical History Surgical History H/O partial thyroidectomy H/O: hysterectomy SANDRA BSO History of appendectomy History of cardiac cath 2017 ([facility])- no stents History of cataract surgery History of cholecystectomy History of colonoscopy History of esophagogastroduodenoscopy (EGD) 10/2021 History of lumbar surgery History of oral surgery salivary gland surgery History of tooth extraction all teeth removed S/P arteriovenous (AV) fistula creation Status post biopsy of kidney kidney disease Social History Smoking Status: Never smoker Do You Dip or Chew Tobacco: No Hx Alcohol Use: No Hx Substance Use: No substance use type: does not use Physical Exam Vital Signs Last Vital Signs Temp 36.7 C 10/29/22 08:29 Pulse 108 H 10/29/22 08:29 Resp 18 10/29/22 08:29 BP 114/81 10/29/22 08:29 Pulse Ox 94 10/29/22 08:29 O2 Del Method Room Air 10/29/22 08:29 O2 Flow Rate 2.0 10/29/22 03:09 Testing Laboratory Results 10/29/22 05:38 10/29/22 05:38 PT 14.8 Seconds (9.0-12.0) H 10/29/22 05:38 INR 1.4 (0.9-1.1) H 10/29/22 05:38 APTT 36.5 Seconds (21.0-31.0) H 10/28/22 11:39 Electrocardiogram Date: 10/25/22 Test Reason : Blood Pressure : / mmHG Vent. Rate : 093 BPM Atrial Rate : 107 BPM P-R Int : 000 ms QRS Dur : 112 ms QT Int : 380 ms P-R-T Axes : 000 -58 -24 degrees QTc Int : 472 ms Atrial fibrillation Left anterior fascicular block Nonspecific ST abnormality Abnormal ECG When compared with ECG of 24-OCT-2022 16:15, No significant change was found Confirmed by Roger Verdin ([id number]) on 10/26/2022 10:39:32 PM Chest X-Ray Date: 10/25/22 CLINICAL HISTORY: Congestive heart failure. FINDINGS: An AP, portable, upright chest radiograph is compared to study dated 10/23/2022 and correlated with chest CT dated 10/05/2022. There is a moderate to large hiatal hernia. Enlargement of the right mediastinal contours consistent with lymphadenopathy when correlated with the prior chest CT. The heart is enlarged noting atherosclerotic calcification of the thoracic aorta. There is pulmonary vascular congestion and mild interstitial edema. There are small pleural effusions with dependent consolidation. No pneumothorax is seen. The skeletal structures are osteopenic. The bony thorax is grossly intact. IMPRESSION: 1. Cardiomegaly with evidence of congestive failure and mild pulmonary edema. 2. Small pleural effusions with dependent consolidation. Echocardiogram Date: 10/24/22 EF: 55 LV Function: normal RWMA: + none Other Findings: + atrial enlargement (L atrium, severe), + LVH (moderate) and + diastolic dysfunction (present, not graded) mild PHTN
--- NOTE | 2022-10-29 10:19 | GI REPORT ---
Patient Name: Juventino Ward Procedure Date: 10/29/2022 10:07 AM Date of : 1945 Admit Type: Inpatient Age: 77 Gender: Female Attending MD: Osiris Cooper DO, Procedure: Upper GI endoscopy Providers: sOiris Cooper DO Referring MD: Hieu Rocha Md Indications: Coffee-ground emesis Patient Profile: This is a 77 year old female. Refer to note in patient chart for documentation of history and physical. Medicines: Monitored Anesthesia Care Complications: No immediate complications. Estimated Blood Loss: Estimated blood loss: none. Procedure: Pre-Anesthesia Assessment: - Prior to the procedure, a History and Physical was performed, and patient medications and allergies were reviewed. The risks and benefits of the procedure and the sedation options and risks were discussed with the patient. All questions were answered and informed consent was obtained. Patient identification and proposed procedure were verified by the physician, the nurse and the dry cleaner presser in the procedure room. Mental Status Examination: alert and oriented. Airway Examination: Mallampati Class II (the uvula but not tonsillar pillars visualized). Respiratory Examination: clear to auscultation. CV Examination: normal. Prophylactic Antibiotics: The patient does not require prophylactic antibiotics. Prior Anticoagulants: The patient has taken heparin, last dose was 2 days prior to procedure. ASA Grade Assessment: III - A patient with severe systemic disease. After reviewing the risks and benefits, the patient was deemed in satisfactory condition to undergo the procedure. The anesthesia plan was to use monitored anesthesia care (MAC). Immediately prior to administration of medications, the patient was re-assessed for adequacy to receive sedatives. The physical status of the patient was re-assessed after the procedure. After obtaining informed consent, the endoscope was passed under direct vision. Throughout the procedure, the patient's blood pressure, pulse, and oxygen saturations were monitored continuously. The Endoscope was introduced through the mouth, and advanced to the second part of duodenum. The upper GI endoscopy was accomplished without difficulty. The patient tolerated the procedure well. Findings: The Z-line was regular. A large hiatal hernia was present. Friable mucosa with contact bleeding was found in the entire examined stomach. The exam of the stomach was otherwise normal. The duodenal bulb and second portion of the duodenum were normal. Impression: - Z-line regular. - Large hiatal hernia. There were 2 elenita erosions in the hernia sac with stigmata of recent bleeding which is the likely source of her recent coffee ground emesis. The mucosa in the hernia sac was very friable. - Friable gastric mucosa. - Normal duodenal bulb and second portion of the duodenum. - No specimens collected. Recommendation: - Return patient to [facility] for [facility] care. - Resume previous diet. - Continue present medications. - Use a PPI 40 mg BID for 12 weeks and Carafate 1 gram QID for 2 weeks Osiris Cooper, 10/29/2022 10:19:15 AM Note Initiated On: 10/29/2022 10:07 AM Number of Addenda: 0 I attest to the content of the Intraoperative Record and orders documented therein, exceptions below {[id number]}
--- NOTE | 2022-10-29 10:20 | Communication Note ---
Date of Service: October 29, 2022 Patient s/p EGD today with findings of large hiatal hernia with 2 Wolf erosions with stigmata of recent bleeding. This is likely the source of her re cent coffee ground emesis. Recommend PPI 40 mg BID x 12 weeks and Carafate 1 gram QID for 2 weeks. GI will sign off but please call back with questions. Osiris Cooper, DO Gastroenterology and Hepatology
[2022-10-29] MEDS: SUCRALFATE 1 GM/10 ML UDC PO SCH ×3 (11:34→20:29)
[2022-10-29] MEDS: MONTELUKAST SOD 5 MG CHEWABLE TAB PO PRN (11:35)
[2022-10-29] MEDS: SEVELAMER HCL 800 MG TABLET PO SCH ×3 (11:36→16:32)
[2022-10-29] MEDS: METOPROLOL SUCC 50MG EXT REL TAB PO SCH (11:36)
[2022-10-29] MEDS: FAMOTIDINE 20 MG TAB PO SCH ×2 (11:37→20:29)
[2022-10-29] MEDS: NEPHROCAPS PO SCH (11:38)
[2022-10-29] MEDS: UMECLIDINIUM/VILANTEROL 62.5/25MCG 7 PUFFS/INHALER INH SCH (11:38)
[2022-10-29] MEDS: ISOSORBIDE MONO EXTENDED REL 30 MG TABCR PO SCH (11:38)
[2022-10-29] MEDS: FLUTICASONE FUROATE 100MCG 14 PUFFS/INHALER INH SCH (11:39)
[2022-10-29] MEDS ORDERED: Heparin IV Adult Wt-Based Low-Dose *NO* Bolus Protocol IV STA (12:31)
[2022-10-29] MEDS ORDERED: HEPARIN SODIUM/DEXTROSE 25,000 UNITS/500 ML BAG IV SCH (12:45)
--- NOTE | 2022-10-29 13:10 | Anesthesiology Progress Note ---
Date of Service October 29, 2022 Anesthesia Post Procedure Vital Signs Vital Signs: Temp Pulse Pulse Pulse Resp BP BP 10/29/22 10:50 20 L 100 H 18 105/64 10/29/22 10:34 16 L 88 18 90/59 L 10/29/22 10:18 16 L 108 H 16 82/55 L 10/29/22 09:32 36 C L 18 L 97 H 18 109/86 10/29/22 08:29 36.7 C 108 H 108 H 18 114/81 10/29/22 03:09 36.7 C 110 H 19 106/77 10/28/22 23:06 36.9 C 94 H 19 90/60 L 10/28/22 19:02 36.8 C 96 H 18 101/69 10/28/22 15:55 36.3 C L 98 H 18 108/73 10/28/22 15:15 36.5 C 84 131/81 10/28/22 14:30 110 H 107/75 10/28/22 15:48 123 H 10/28/22 14:00 115 H 97/60 L 10/28/22 13:30 71 92/62 L Pulse Ox O2 Del Method O2 Flow Rate 10/29/22 10:50 97 Nasal Cannula 2 10/29/22 10:34 97 Nasal Cannula 2 10/29/22 10:18 98 Nasal Cannula 2 10/29/22 09:32 95 Nasal Cannula 2 10/29/22 08:29 94 Room Air 10/29/22 03:09 98 CPAP 2.0 10/28/22 23:06 98 CPAP 2.0 10/28/22 19:02 93 Room Air 10/28/22 15:55 95 Room Air 10/28/22 15:15 10/28/22 14:30 10/28/22 15:48 10/28/22 14:00 10/28/22 13:30 Transfer of Care Handoff Completed per policy Notes Mental Status: alert / awake / arousable and participated in evaluation Patient Amnestic to Procedure: Yes Nausea / Vomiting: adequately controlled Pain: adequately controlled Airway Patency, RR, SpO2: stable & adequate BP & HR: stable & adequate Hydration State: stable & adequate Anesthetic Complications: no major complications apparent
--- NOTE | 2022-10-29 13:50 | Cardiology Progress Note ---
Date of Service October 29, 2022 Assessment & Plan (1) Anemia: Plan: -Patient with episode of coffee-ground emesis while on heparin bridge and being loaded with Coumadin. Aspirin, Coumadin, heparin all held. Patient underwent EGD 10/29/2022 with findings of 2 Wolf erosions within a hiatal hernia with stigmata of recent bleeding. Gastroenterology had recommended use of proton pump inhibitor 40 mg twice daily for 12 weeks and Carafate 1 g 4 times daily for 2 weeks and that anticoagulation could be reinitiated. (2) Rapid atrial fibrillation: Plan: -Rate control: Increase metoprolol succinate to 125 mg daily at bedtime, 100 mg daily in the morning. (Her recent outpatient dose was metoprolol succinate 75 mg twice daily which her daughter states that she had been taking since her rec ent discharge). -Her prior to hospital treatment with amlodipine has been discontinued to allow for up titration of beta-michael. -Amiodarone discontinued with need to hold her anticoagulation. At this time since she has been in the atrial fibrillation for greater than 48 hours and has had a lapse in anticoagulation, would avoid pharmacologic conversion without TERESSA information. -Hemoglobin stable, 11.7. -My initial anticoagulation recommendations had been for cautious use of heparin to Coumadin. Eliquis however is an excepted alternative in patients with end- stage renal disease on dialysis. The typical dose is 5 mg twice daily with dose adjusted down to 2.5 mg twice daily if the patient is over 80 years old or weighs less than 60 kg. In this case, the appropriate dose to be 5 mg twice daily. The dose of Eliquis with regards to cardioversion however is "not defined "in the literature. If direct-current cardioversion considered in the future, most reasonable option may be to consider TERESSA guidance. The patient is noted to have a hiatal hernia, but usually the left atrial appendage is visualized from the proximal mid esophagus so this should not be an issue. -Eliquis would likely be more easy to manage without need for close INR follow- up and labile INR concerns. We will plan to discuss this with Dr. Schrader with whom she follows closely for the purpose of coordinating care, and I will discuss it with her daughter prior to initiation. Admission and Anticipated Discharge Date Admission Date: October 23, 2022 Subjective Patient is seen in cardiology follow up having had EGD this morning. She is comfortable. Denies chest discomfort or shortness of breath. Atrial fibrillation with rate at just around 100 bpm present at the time of my assessment. Physical Exam Constitutional: WD/WN, vitals as above Eyes: PERRL, conjunctivae normal, anicteric sclerae Cardiovascular: Rate/Rhythm: + tachycardic and + irregularly irregular Heart Sounds: + murmur (1/6 systolic murmur) Extremities: + AV fistula (Left upper extremity AV fistula with appropriate auscultative sounds); no edema Gastrointestinal (Abdomen): normal bowel sounds, soft, nontender, no hepatosplenomegaly Neurologic: PERRL, EOMI, accommodation nl, no face palsy, no dysarthria Results & Data Vital Signs (Past 12 Hours) Vital Signs Temp Pulse Pulse Resp BP Pulse Ox O2 Del Method 10/29/22 10:50 20 L 100 H 18 105/64 97 Nasal Cannula 10/29/22 10:34 16 L 88 18 90/59 L 97 Nasal Cannula 10/29/22 10:18 16 L 108 H 16 82/55 L 98 Nasal Cannula 10/29/22 09:32 36 C L 18 L 97 H 18 109/86 95 Nasal Cannula 10/29/22 08:29 36.7 C 108 H 108 H 18 114/81 94 Room Air 10/29/22 03:09 36.7 C 110 H 19 106/77 98 CPAP O2 Flow Rate 10/29/22 10:50 2 10/29/22 10:34 2 10/29/22 10:18 2 10/29/22 09:32 2 10/29/22 08:29 10/29/22 03:09 2.0 Laboratory Results Coagulation 10/29/22 Range/Units 05:38 PT 14.8 H (9.0-12.0) Seconds CBC 10/28/22 10/29/22 Range/Units 15:50 05:38 WBC 5.52 (4.8-10.8) K/ul RBC 4.45 (4.20-5.40) M/uL Hgb 12.3 11.7 L (12.0-16.0) g/dl Hct 40.9 38.8 (37.0-47.0) % Plt Count 160 (130-400) K/uL Comprehensive Metabolic Panel 10/29/22 Range/Units 05:38 Sodium 139 (136-145) mmol/L Potassium 4.6 (3.5-5.1) mmol/L Chloride 101 (98-107) mmol/L Carbon Dioxide 27 (21-32) mmol/L BUN 22 (6-23) mg/dl Creatinine 4.40 H D (0.6-1.2) mg/dl Glucose 93 (70-99(Fasting)) mg/dl Calcium 9.3 (8.6-10.3) mg/dl Intake and Output 10/28/22 10/29/22 10/29/22 22:59 06:59 14:59 Intake Total 485.667 / 814.667 131.667 / 814.667 Balance 485.667 / 814.667 131.667 / 814.667 Intake: IV 185.667 / 464.667 81.667 / 464.667 PANTOprazole 40 mg In Dextrose 185.667 / 464.667 81.667 / 464.667 5% 100 ml @ 8 MG/HR 20 mls/hr IV Q5H [facility] Rx#:[id number] Oral 300 / 350 50 / 350 Other: Hemodialysis Ultrafiltration 2,100 Amount # Unmeasured Voids 2 Weight 66 kg 66 kg Weight Measurement Method Built in [facility] Patient Weight 10/30/22 06:59 Weight 66 kg (1) Anemia Anemia type: unspecified type Qualified Code(s): D64.9 - Anemia, unspecified
--- NOTE | 2022-10-29 15:33 | Hospitalist Progress Note ---
Date of Service October 29, 2022 Assessment & Plan (1) Rapid atrial fibrillation: Plan: Patient is a 77F with H/O diastolic dysfunction (EF 60%, TTE 2022), valvular heart disease (mild AR/MR/TR), LAUREN on CPAP, pulmonary hypertension, HTN, hyperlipidemia, ESRD on HD, bronchial asthma, DM2 diet-controlled, GERD, comes because of not feeling well and found to be in rapid A-fib. Atrial fibrillation with RVR History of ESRD on HD, diastolic dysfunction, MAT. Underwent dialysis on the day of presentation; was found to have elevated heart rate; came to the ED. Normal TSH --CTA:No evidence for a pulmonary embolus. Stable cardiomegaly. No evidence for pulmonary edema. Mild mediastinal lymphadenopathy has improved. Moderate hiatus hernia, unchanged. No new focal lung consolidations to suggest a pneumonia. --Venous Doppler:There is no sonographic evidence of deep venous thrombosis identified in the right or left lower extremity. --ECHO: Moderate concentric LVH. No regional wall motion abnormality. EF 55%. Left atrium is severely dilated. Mild mitral regurgitation. LV diastolic function is abnormal. Mild pulmonary hypertension. Hold amlodipine due to hypotension Amiodarone discontinued Metoprolol dose increased 100 mg QAM, 125 mg QPM Anticoagulation with IV heparin, Coumadin discontinued Appreciate cardiology input Discussed with GI today: Okay to resume anticoagulation Consideration to be initiated on Eliquis per cardiology Anemia of chronic disease Acute GI bleed likely due to Wolf lesions H/O gastritis, hiatal hernia, adenomatous polyps S/P EGD: Large hiatal hernia. 2 Wolf erosions in the hernial sac with stigmata of recent bleeding, mucosa in the hernia sac very friable, friable gastric mucosa. Ok to resume Aspirin, anticoagulation per GI (Discussed on 10/29/22) Plan to continue Protonix 40 mg twice a day for 12 weeks Also started on Carafate 1 g 4 times daily for 2 weeks Monitor H&H and transfuse as needed Appreciate GI input End-stage renal disease On Wednesday and Wednesday dialysis. Continue dialysis as per Nephrology Chronic diastolic CHF Valvular heart disease Volume status being managed with dialysis Monitor Obstructive sleep apnea CPAP with oxygen nightly Hypertension Amlodipine on hold Continue isosorbide, metoprolol Monitor H/O Bronchial asthma Continue home inhalers Hyperlipidemia On statin GERD Continue PPI Prediabetes Diet control DVT Px: SCDs for now Admission and Anticipated Discharge Date Admission Date: October 23, 2022 Subjective Patient is seen and examined at bedside Patient states feeling well today No recurrence of bleeding Discussed with gastroenterology and cardiology today Patient had EGD earlier today Denies any chest pain, dyspnea, palpitations, nausea, vomiting, abdominal pain Review of Systems Review of Systems: All systems reviewed & are unremarkable except as noted in Subjective Physical Exam Physical Exam: Physical Exam: Vitals signs as noted above General Appearance:Moderately built and nourished, no apparent distress Head: normocephalic, Atraumatic Eyes: normal inspection, EOMI Neck: supple, Trachea midline Respiratory/Chest: Normal breath sounds, CTA, No accessory muscle use Cardiovascular: Irregularly irregular, No murmur Abdomen/GI:Soft, Non tender, Bowel sounds present Extremities/Musculoskeletal:normal inspection, Trace pedal edema Neurologic/Psych:Alert, awake, oriented, grossly no focal deficits Skin: normal color, warm Results & Data Results & Data Vital Signs (Past 12 Hours) Vital Signs Temp Pulse Pulse Resp BP Pulse Ox O2 Del Method 10/29/22 15:15 36.9 C 101 H 17 102/82 98 Nasal Cannula 10/29/22 13:44 37.1 C 115 H 115 H 18 118/76 93 Room Air 10/29/22 10:50 20 L 100 H 18 105/64 97 Nasal Cannula 10/29/22 10:34 16 L 88 18 90/59 L 97 Nasal Cannula 10/29/22 10:18 16 L 108 H 16 82/55 L 98 Nasal Cannula 10/29/22 09:32 36 C L 18 L 97 H 18 109/86 95 Nasal Cannula 10/29/22 08:29 36.7 C 108 H 108 H 18 114/81 94 Room Air O2 Flow Rate 10/29/22 15:15 2 10/29/22 13:44 10/29/22 10:50 2 10/29/22 10:34 2 10/29/22 10:18 2 10/29/22 09:32 2 10/29/22 08:29 Laboratory Results Short CBC 10/28/22 10/29/22 Range/Units 15:50 05:38 WBC 5.52 (4.8-10.8) K/ul Hgb 12.3 11.7 L (12.0-16.0) g/dl Hct 40.9 38.8 (37.0-47.0) % Plt Count 160 (130-400) K/uL BMP 10/29/22 05:38 Sodium 139 Potassium 4.6 Chloride 101 Carbon Dioxide 27 BUN 22 Creatinine 4.40 H D Glucose 93 Calcium 9.3
--- NOTE | 2022-10-29 16:02 | Communication Note ---
Date of Service: October 29, 2022 I spoke to patient's management expert Dr Schrader, both of us are in agreement that ideally, would be preferable for the patient to be on no anticoagulation given her risk of recurrent bleeding. Her stroke risk however is significant. I spoke with the patient's daughter, Jenny Ward, who is a physician session. I discussed options. This is a complex decision weighing risk of thrombotic complications such as stroke and bleeding complications. As noted, Eliquis is the only direct oral anticoagulant that has dosing recommendations in the setting of end-stage renal disease and dialysis. The patient's dose would be 5 mg twice daily as she is less than 80 years old and weighs more than 60 kg. The use of this medication in the setting of cardiove rsion however has not been well studied. Coumadin is another option. She could have her INRs followed closely at [facility], by finger stick INR and Future options include home monitoring. At this time, I would recommend avoiding heparin bridge in an effort to reduce bleeding, and I recommend discontinuation of aspirin. After discussion with the patient's daughter, through process of shared decision making, we will proceed with reinitiating Coumadin therapy without heparin bridge and without aspirin rather than Eliquis. An INR has been ordered for tomorrow. Vasquez Womack,
[2022-10-29] MEDS: WARFARIN SOD 5 MG TAB PO SCH (16:35)
[2022-10-29] MEDS: METOPROLOL SUCC 25MG EXT REL TAB PO SCH (20:28)
[2022-10-29] MEDS: ATORVASTATIN 20 MG TAB PO SCH (20:29)
[2022-10-29] MEDS: PANTOprazole 40 MG TAB PO SCH (20:29)
[2022-10-30 06:06] LABS: Hematocrit (blood only) 35.6 % (37.0-47.0); Hemoglobin 10.7 g/dl (12.0-16.0); Mean Corpuscular Hemoglobin 26.2 pg (25.0-34.0); Mean Corpuscular Hgb Conc 30.1 g/dL (32.0-36.0); Mean Platelet Volume 10.8 fL (9.4-12.4); Platelet Count 165 K/uL (130-400); RDW Coefficient of Variation 15.5 % (11.5-14.5); RDW Standard Deviation 48.9 fL (36.4-46.3); Red Blood Count 4.09 M/uL (4.20-5.40); White Blood Count 5.83 K/ul (4.8-10.8)
[2022-10-30 06:25] LABS: BUN Creatinine Ratio 6.8 (10-20); Calcium 9.2 mg/dl (8.6-10.3); Creatinine Clr Calc Pharmacy 6.4 ml/min; Est GFR (African American) 6.9 ml/min; Potassium 5.2 mmol/L (3.5-5.1)
[2022-10-30 06:27] LABS: INR 1.6 (0.9-1.1); Prothrombin Time 17.3 Seconds (9.0-12.0)
[2022-10-30] MEDS ORDERED: SODIUM CHLORIDE 0.9% 1,000 ML IV PRN (07:00)
[2022-10-30] MEDS: NEPHROCAPS PO SCH (08:13)
[2022-10-30] MEDS: SEVELAMER HCL 800 MG TABLET PO SCH ×3 (08:13→16:53)
[2022-10-30] MEDS: SUCRALFATE 1 GM/10 ML UDC PO SCH ×4 (08:13→21:58)
[2022-10-30] MEDS: FAMOTIDINE 20 MG TAB PO SCH ×2 (08:13→21:58)
[2022-10-30] MEDS: MONTELUKAST SOD 5 MG CHEWABLE TAB PO PRN (08:13)
[2022-10-30] MEDS: FLUTICASONE FUROATE 100MCG 14 PUFFS/INHALER INH SCH (08:13)
[2022-10-30] MEDS: PANTOprazole 40 MG TAB PO SCH ×2 (08:13→21:58)
[2022-10-30] MEDS: UMECLIDINIUM/VILANTEROL 62.5/25MCG 7 PUFFS/INHALER INH SCH (08:14)
--- NOTE | 2022-10-30 08:47 | Nephrology Progress Note ---
Date of Service October 30, 2022 Assessment & Plan (1) Rapid atrial fibrillation: Plan: * Rhythm remains irregular * LE doppler 10/25/22 was negative for DVT * 10/26/22 Chest CTA - negative for PE * 10/23/22 TSH 1.8 * Cardiology plans anticoagulation w/ warfarin, continue rate control w/ metoprolol and consider cardioversion as outpatient * INR 1.6 this am (2) End-stage renal disease on hemodialysis: Plan: * EDW has been reduced to 62 kg in the outpatient setting * Outpatient HD Rx: [facility] (MWF 3.25 hr, F-180NR, Qb 350/Qd 600, 2K 2Ca, Na137, HCO3 36, EDW 62kg) * Will provide HD today. Orders have been placed in EMR and HD RN notified (3) Anemia: Plan: * Hgb is within target 10-11 g/dL range. Will continue to monitor * 10/29/22 EGD: large hiatal hernia, 2 elenita erosions in the hernia sac that wer likely the source of bleeding. The hernia sac itself appears very friable. PPI 40 mg BID x 12 weeks recommended (4) Sleep apnea: Plan: * Nocturnal CPAP as per primary service Admission and Anticipated Discharge Date Admission Date: October 23, 2022 Subjective Ms. Ward was evaluated in her hospital room this morning. She was breathing comfortably on RA. She denied dyspnea, palpitations, angina, abdominal discomfort or further episodes of hematemesis. Ms. Ward voiced no new medical concerns Review of Systems Constitutional: no fever Eyes: no problem reported Ear, Nose, Mouth, Throat: no problem reported Respiratory: no cough and no dyspnea Cardiovascular: no chest pain Gastrointestinal: no abdominal pain, no vomiting and no diarrhea/loose stools Physical Exam Constitutional: + frail appearing; not in distress Eyes: PERRL, conjunctivae normal, anicteric sclerae ENMT: external ear and nose normal, oropharynx normal Respiratory: normal respiratory effort, lungs clear to auscultation Cardiovascular: Rate/Rhythm: + irregularly irregular Extremities: + AV fistula (+ bruit) Gastrointestinal (Abdomen): normal bowel sounds, soft, nontender, no hepatosplenomegaly Neurologic: Speech / Cognition: normal speech and normal cognition Psychiatric: Affect: euthymic affect Results & Data Vital Signs (Past 12 Hours) Vital Signs Temp Pulse Pulse Pulse Resp BP Pulse Ox 10/30/22 08:00 37.4 C 98 H 20 131/83 97 10/30/22 07:19 94 H 10/30/22 04:44 37 C 113 H 16 103/80 98 10/30/22 01:00 110 H 10/30/22 00:27 35.6 C L 118 H 16 113/90 96 10/29/22 23:00 10/29/22 21:20 36.7 C 106 H 16 102/66 96 O2 Del Method 10/30/22 08:00 Room Air 10/30/22 07:19 10/30/22 04:44 Room Air, CPAP 10/30/22 01:00 10/30/22 00:27 Room Air, CPAP 10/29/22 23:00 CPAP 10/29/22 21:20 Room Air Laboratory Results Laboratory Tests 10/30/22 10/30/22 10/30/22 05:26 05:26 05:26 WBC 5.83 Hgb 10.7 L Hct 35.6 L Plt Count 165 INR 1.6 H Sodium 135 L Potassium 5.2 H Chloride 103 Carbon Dioxide 24 BUN 42 H D Creatinine 6.22 H* D Glucose 97 Calcium 9.2 PG Care Time/CCT Total # of Minutes Spent Total Time Spent with Patient: Total time spent is greater than 50% in coordination of care (as documented) at patient's floor/unit and/or counseling patient: Coding Level of Care Code 41001 SUB INP/OBS CARE 3/50MIN Diagnoses Rapid atrial fibrillation I48.91 End-stage renal disease on hemodialysis N18.6; Z99.2 Anemia D64.9 Anemia type: unspecified type Sleep apnea G47.30 (3) Anemia Anemia type: unspecified type Qualified Code(s): D64.9 - Anemia, unspecified
--- NOTE | 2022-10-30 11:43 | Cardiology Progress Note ---
Date of Service October 30, 2022 Assessment & Plan (1) Anemia: Plan: -Patient with episode of coffee-ground emesis while on heparin bridge and being loaded with Coumadin. Aspirin, Coumadin, heparin all held. Patient underwent EGD 10/29/2022 with findings of 2 Wolf erosions within a hiatal hernia with stigmata of recent bleeding. Gastroenterology had recommended use of proton pump inhibitor 40 mg twice daily for 12 weeks and Carafate 1 g 4 times daily for 2 weeks and that anticoagulation could be reinitiated. (2) Rapid atrial fibrillation: Plan: -Rate control: Increase metoprolol succinate to 125 mg daily at bedtime, 100 mg daily in the morning. (Her recent outpatient dose was metoprolol succinate 75 mg twice daily which her daughter states that she had been taking since her rec ent discharge). -Her prior to hospital treatment with amlodipine has been discontinued to allow for up titration of beta-michael. -Amiodarone discontinued with need to hold her anticoagulation. At this time since she has been in the atrial fibrillation for greater than 48 hours and has had a lapse in anticoagulation, would avoid pharmacologic conversion without TERESSA information. -Hemoglobin stable, 10.7. -My initial anticoagulation recommendations had been for cautious use of heparin to Coumadin. Eliquis however is an excepted alternative in patients with end- stage renal disease on dialysis. The typical dose is 5 mg twice daily with dose adjusted down to 2.5 mg twice daily if the patient is over 80 years old or weighs less than 60 kg. In this case, the appropriate dose to be 5 mg twice daily. -After discussion with patient's daughter, decision was made to proceed with previous plan of Coumadin. Continue initiation of 5 mg daily. INR 1.6 today. -We will refer to the anticoagulation clinic at [facility]. Family requests home monitoring machine if this could be arranged in the future and I will touch base with the anticoagulation clinic about this option. -Future considerations include direct-current cardioversion once patient has been on uninterrupted therapeutic anticoagulation for 4 weeks, as well as consideration of a percutaneous left atrial appendage occlusion device (Watchman) device. Admission and Anticipated Discharge Date Admission Date: October 23, 2022 Subjective Patient seen in cardiology follow-up. No acute complaints. Remains in atrial fibrillation with heart rate ranging from 90 to 110 bpm. Physical Exam Constitutional: WD/WN, vitals as above Eyes: PERRL, conjunctivae normal, anicteric sclerae Cardiovascular: Rate/Rhythm: + tachycardic and + irregularly irregular Heart Sounds: + murmur (1/6 systolic murmur) Extremities: + AV fistula (Left upper extremity AV fistula with appropriate auscultative sounds); no edema Gastrointestinal (Abdomen): normal bowel sounds, soft, nontender, no hepatosplenomegaly Neurologic: PERRL, EOMI, accommodation nl, no face palsy, no dysarthria Results & Data Vital Signs (Past 12 Hours) Vital Signs Temp Pulse Pulse Pulse Resp BP BP 10/30/22 11:30 76 101/59 L 10/30/22 11:00 84 101/66 10/30/22 10:30 96 H 114/66 10/30/22 10:00 107 H 105/60 10/30/22 09:30 123 H 88/59 L 10/30/22 09:15 74 92/57 L 10/30/22 09:11 36.5 C 82 10/30/22 08:00 37.4 C 98 H 20 131/83 10/30/22 07:19 94 H 10/30/22 04:44 37 C 113 H 16 103/80 10/30/22 01:00 110 H 10/30/22 00:27 35.6 C L 118 H 16 113/90 Pulse Ox O2 Del Method 10/30/22 11:30 10/30/22 11:00 10/30/22 10:30 10/30/22 10:00 10/30/22 09:30 10/30/22 09:15 10/30/22 09:11 10/30/22 08:00 97 Room Air 10/30/22 07:19 10/30/22 04:44 98 Room Air, CPAP 10/30/22 01:00 10/30/22 00:27 96 Room Air, CPAP Laboratory Results Coagulation 10/30/22 Range/Units 05:26 PT 17.3 H (9.0-12.0) Seconds CBC 10/30/22 Range/Units 05:26 WBC 5.83 (4.8-10.8) K/ul RBC 4.09 L (4.20-5.40) M/uL Hgb 10.7 L (12.0-16.0) g/dl Hct 35.6 L (37.0-47.0) % Plt Count 165 (130-400) K/uL Comprehensive Metabolic Panel 10/30/22 Range/Units 05:26 Sodium 135 L (136-145) mmol/L Potassium 5.2 H (3.5-5.1) mmol/L Chloride 103 (98-107) mmol/L Carbon Dioxide 24 (21-32) mmol/L BUN 42 H D (6-23) mg/dl Creatinine 6.22 H* D (0.6-1.2) mg/dl Glucose 97 (70-99(Fasting)) mg/dl Calcium 9.2 (8.6-10.3) mg/dl Intake and Output 10/29/22 10/30/22 10/30/22 22:59 06:59 14:59 Other: Weight 64.9 kg 64.9 kg Weight Measurement Method Built in Bedscale Built in Bedscale Patient Weight 10/31/22 06:59 Weight 64.9 kg (1) Anemia Anemia type: unspecified type Qualified Code(s): D64.9 - Anemia, unspecified
[2022-10-30] MEDS: ISOSORBIDE MONO EXTENDED REL 30 MG TABCR PO SCH (13:05)
[2022-10-30] MEDS: METOPROLOL SUCC 50MG EXT REL TAB PO SCH (13:06)
--- NOTE | 2022-10-30 16:51 | Hospitalist Progress Note ---
Date of Service October 30, 2022 Assessment & Plan (1) Rapid atrial fibrillation: Plan: Patient is a 77F with H/O diastolic dysfunction (EF 60%, TTE 2022), valvular heart disease (mild AR/MR/TR), LAUREN on CPAP, pulmonary hypertension, HTN, hyperlipidemia, ESRD on HD, bronchial asthma, DM2 diet-controlled, GERD, comes because of not feeling well and found to be in rapid A-fib. Atrial fibrillation with RVR History of ESRD on HD, diastolic dysfunction, MAT. Underwent dialysis on the day of presentation; was found to have elevated heart rate; came to the ED. Normal TSH --CTA:No evidence for a pulmonary embolus. Stable cardiomegaly. No evidence for pulmonary edema. Mild mediastinal lymphadenopathy has improved. Moderate hiatus hernia, unchanged. No new focal lung consolidations to suggest a pneumonia. --Venous Doppler:There is no sonographic evidence of deep venous thrombosis identified in the right or left lower extremity. --ECHO: Moderate concentric LVH. No regional wall motion abnormality. EF 55%. Left atrium is severely dilated. Mild mitral regurgitation. LV diastolic function is abnormal. Mild pulmonary hypertension. Hold amlodipine due to hypotension Amiodarone discontinued Metoprolol dose increased 100 mg QAM, 125 mg QPM IV heparin discontinued due to bleeding issues Appreciate cardiology input Discussed with GI on 10/29/22: Okay to resume anticoagulation Coumadin resumed Monitor INR 1.6 today Needs follow-up with cardiology/Coumadin Clinic upon discharge Anemia of chronic disease Acute GI bleed likely due to Wolf lesions H/O gastritis, hiatal hernia, adenomatous polyps S/P EGD: Large hiatal hernia. 2 Wolf erosions in the hernial sac with stigmata of recent bleeding, mucosa in the hernia sac very friable, friable gastric mucosa. Ok to resume Aspirin, anticoagulation per GI (Discussed on 10/29/22) Plan to continue Protonix 40 mg twice a day for 12 weeks Also started on Carafate 1 g 4 times daily for 2 weeks Monitor H&H and transfuse as needed Appreciate GI input Hb 10.7 today End-stage renal disease On Wednesday and Wednesday dialysis. Continue dialysis as per Nephrology Chronic diastolic CHF Valvular heart disease Volume status being managed with dialysis Monitor Obstructive sleep apnea CPAP with oxygen nightly Hypertension Amlodipine on hold Continue isosorbide, metoprolol Monitor H/O Bronchial asthma Continue home inhalers Hyperlipidemia On statin GERD Continue PPI Prediabetes Diet control DVT Px: Coumadin Admission and Anticipated Discharge Date Admission Date: October 23, 2022 Subjective Patient is seen and examined at bedside while having hemodialysis this morning Denies any recurrence of coffee-ground emesis Offers no new complaints Denies any chest pain, dyspnea, palpitations, nausea, vomiting, abdominal pain Review of Systems Review of Systems: All systems reviewed & are unremarkable except as noted in Subjective Physical Exam Physical Exam: Physical Exam: Vitals signs as noted above General Appearance:Moderately built and nourished, no apparent distress Head: normocephalic, Atraumatic Eyes: normal inspection, EOMI Neck: supple, Trachea midline Respiratory/Chest: Normal breath sounds, CTA, No accessory muscle use Cardiovascular: Irregularly irregular, No murmur Abdomen/GI:Soft, Non tender, Bowel sounds present Extremities/Musculoskeletal:normal inspection, Trace pedal edema Neurologic/Psych:Alert, awake, oriented, grossly no focal deficits Skin: normal color, warm Results & Data Results & Data Vital Signs (Past 12 Hours) Vital Signs Temp Pulse Pulse Pulse Resp BP BP 10/30/22 15:37 37.2 C 109 H 16 118/76 10/30/22 15:20 110 H 10/30/22 13:03 36.9 C 114 H 20 122/74 10/30/22 12:40 36.7 C 77 121/61 10/30/22 12:30 71 114/68 10/30/22 12:30 71 114/68 10/30/22 12:00 61 99/86 L 10/30/22 11:30 76 101/59 L 10/30/22 11:00 84 101/66 10/30/22 10:30 96 H 114/66 10/30/22 10:00 107 H 105/60 10/30/22 09:30 123 H 88/59 L 10/30/22 09:15 74 92/57 L 10/30/22 09:11 36.5 C 82 10/30/22 08:00 37.4 C 98 H 20 131/83 10/30/22 07:19 94 H Pulse Ox O2 Del Method 10/30/22 15:37 95 Room Air 10/30/22 15:20 10/30/22 13:03 93 Room Air 10/30/22 12:40 10/30/22 12:30 10/30/22 12:30 10/30/22 12:00 10/30/22 11:30 10/30/22 11:00 10/30/22 10:30 10/30/22 10:00 10/30/22 09:30 10/30/22 09:15 10/30/22 09:11 10/30/22 08:00 97 Room Air 10/30/22 07:19 Laboratory Results Short CBC 10/30/22 Range/Units 05:26 WBC 5.83 (4.8-10.8) K/ul Hgb 10.7 L (12.0-16.0) g/dl Hct 35.6 L (37.0-47.0) % Plt Count 165 (130-400) K/uL BMP 10/30/22 05:26 Sodium 135 L Potassium 5.2 H Chloride 103 Carbon Dioxide 24 BUN 42 H D Creatinine 6.22 H* D Glucose 97 Calcium 9.2
[2022-10-30] MEDS: WARFARIN SOD 5 MG TAB PO SCH (16:52)
[2022-10-30] MEDS: POLYETHYLENE (MIRALAX) 17 GM PACK PO PRN (16:59)
[2022-10-30] MEDS ORDERED: ALBUMIN 25% 25 GM/100 ML VIAL IV ONE (19:53)
[2022-10-30] MEDS ORDERED: DIGOXIN 125 MCG in SYRINGE 9.5 ML IV STA (19:56)
[2022-10-30 20:22] LABS: Magnesium 2.2 mg/dl (1.7-2.4)
[2022-10-30] MEDS: ATORVASTATIN 20 MG TAB PO SCH (21:58)
[2022-10-30] MEDS: METOPROLOL SUCC 25MG EXT REL TAB PO SCH (21:59)
[2022-10-30] MEDS ORDERED: METOPROLOL SUCC 25MG EXT REL TAB PO SCH (22:25)
[2022-10-31 06:55] LABS: Hematocrit (blood only) 33.5 % (37.0-47.0)
[2022-10-31 07:09] LABS: Calcium 8.9 mg/dl (8.6-10.3); Creatinine Clr Calc Pharmacy 9.3 ml/min; Est GFR (African American) 10.8 ml/min; Est GFR (Non-African American) 9.3 ml/min; Potassium 4.5 mmol/L (3.5-5.1)
[2022-10-31 07:18] LABS: INR 2.1 (0.9-1.1); Prothrombin Time 22.2 Seconds (9.0-12.0)
[2022-10-31] MEDS: PANTOprazole 40 MG TAB PO SCH (08:06)
[2022-10-31] MEDS: UMECLIDINIUM/VILANTEROL 62.5/25MCG 7 PUFFS/INHALER INH SCH (08:06)
[2022-10-31] MEDS: FAMOTIDINE 20 MG TAB PO SCH (08:06)
[2022-10-31] MEDS: SEVELAMER HCL 800 MG TABLET PO SCH ×2 (08:06→12:05)
[2022-10-31] MEDS: SUCRALFATE 1 GM/10 ML UDC PO SCH ×2 (08:06→12:05)
[2022-10-31] MEDS: FLUTICASONE FUROATE 100MCG 14 PUFFS/INHALER INH SCH (08:06)
[2022-10-31] MEDS: MONTELUKAST SOD 5 MG CHEWABLE TAB PO PRN (08:07)
[2022-10-31] MEDS: NEPHROCAPS PO SCH (08:07)
[2022-10-31] MEDS: ISOSORBIDE MONO EXTENDED REL 30 MG TABCR PO SCH (08:07)
[2022-10-31] MEDS: METOPROLOL SUCC 50MG EXT REL TAB PO SCH (08:08)
--- NOTE | 2022-10-31 11:39 | Cardiology Progress Note ---
Date of Service October 31, 2022 Assessment & Plan (1) Anemia: Plan: Patient with episode of coffee-ground emesis while on heparin bridge and being loaded with Coumadin. Aspirin, Coumadin, heparin all held. Patient underwent EGD 10/29/2022 with findings of 2 Wolf erosions within a hiatal hernia with stigmata of recent bleeding. Gastroenterology had recommended use of proton pump inhibitor 40 mg twice daily for 12 weeks and Carafate 1 g 4 times daily for 2 weeks and that anticoagulation could be reinitiated. (2) Rapid atrial fibrillation: Plan: Continue rate control strategy. Metoprolol succinate increased to 125 mg daily at bedtime, 100 mg daily in the morning. (Her recent outpatient dose was metoprolol succinate 75 mg twice daily which her daughter states that she had been taking since her recent discharge). Amlodipine has been discontinued to allow for up titration of beta-michael. Amiodarone discontinued. At this time since she has been in the atrial fibrillation for greater than 48 hours and has had a lapse in anticoagulation Avoid pharmacologic conversion without TERESSA information. Consider external direct-current cardioversion in 4 weeks versus referral for percutaneous left atrial appendage occluder device (watchman). Hemoglobin trending downward slightly today, 10.0 from 10.7. Close outpatient follow-up recommended. INR is therapeutic, 2.1 today. Agree with reduction of warfarin dosing. Close anticoagulation clinic follow-up recommended within 48 hours of discharge for repeat PT/INR. Admission and Anticipated Discharge Date Admission Date: October 23, 2022 Subjective Patient seen and examined at the bedside. Feeling well from a cardiovascular perspective. Denies chest pain or palpitations. Telemetry reveals atrial fibrillation with heart rate ranging from 90-100 bpm. Notes mild abdominal discomfort. No other concerns/complaints. Review of Systems Review of Systems: All systems reviewed & are unremarkable except as noted in HPI & below Physical Exam Constitutional: well nourished; no acute distress Respiratory: normal respiratory effort; no respiratory distress and no labored breathing Auscultation: lungs clear to auscultation bilaterally; no crackles, no rales, no rhonchi and no wheezes Cardiovascular: Rate/Rhythm: + irregularly irregular Heart Sounds: normal S1, normal S2 and + murmur (1/6 systolic murmur) Vessels: no JVD +LUE AV fistula with appropriate bruit Gastrointestinal (Abdomen): Inspection/Auscultation: abdomen normal to inspection and normal bowel sounds; abdomen not distended Percussion/Palpation: abdomen soft; abdomen nontender, no guarding and abdomen not rigid Neurologic: CN's II-XI intact bilaterally and moves all extremities; no focal motor deficits Results & Data Vital Signs (Past 12 Hours) Vital Signs Temp Pulse Pulse Pulse Resp BP Pulse Ox 10/31/22 11:28 37.0 C 82 17 111/71 96 10/31/22 08:20 36.8 C 97 H 18 120/72 96 10/31/22 07:13 99 H 10/31/22 06:45 104 H 122/79 10/31/22 02:59 36.6 C 109 H 18 100/51 L 98 10/31/22 00:19 100 H 18 102/61 97 O2 Del Method O2 Flow Rate 10/31/22 11:28 Room Air 10/31/22 08:20 Room Air 10/31/22 07:13 10/31/22 06:45 10/31/22 02:59 CPAP 2 10/31/22 00:19 CPAP 2 Laboratory Results Coagulation 10/31/22 Range/Units 05:57 PT 22.2 H (9.0-12.0) Seconds CBC 10/31/22 Range/Units 05:57 Hgb 10.0 L (12.0-16.0) g/dl Hct 33.5 L (37.0-47.0) % Comprehensive Metabolic Panel 10/31/22 Range/Units 05:57 Sodium 138 (136-145) mmol/L Potassium 4.5 (3.5-5.1) mmol/L Chloride 104 (98-107) mmol/L Carbon Dioxide 26 (21-32) mmol/L BUN 26 H (6-23) mg/dl Creatinine 4.30 H D (0.6-1.2) mg/dl Glucose 95 (70-99(Fasting)) mg/dl Calcium 8.9 (8.6-10.3) mg/dl Intake and Output 10/30/22 10/31/22 10/31/22 22:59 06:59 14:59 Intake Total 100 / 100 Output Total 0 / 0 Balance 100 / 100 0 / 100 Intake: IV 100 / 100 Albumin 25% 25 gm In 100 ml @ 100 / 100 50 mls/hr IV ONE ONE Rx#: [id number] Output: Urine 0 / 0 Other: # Unmeasured Voids 1 Weight 65.8 kg 65.8 kg Weight Measurement Method Built in [facility] Patient Weight 11/01/22 06:59 Weight 65.8 kg (1) Anemia Anemia type: unspecified type Qualified Code(s): D64.9 - Anemia, unspecified
--- NOTE | 2022-10-31 11:41 | Nephrology Progress Note ---
Date of Service October 31, 2022 Assessment & Plan (1) End-stage renal disease on hemodialysis: (2) Chronic anemia: (3) Secondary hyperparathyroidism of renal origin: (4) Rapid atrial fibrillation: Plan ESRD on hemodialysis Wednesday, Wednesday, Wednesday at [facility] [place] via left brachiocephalic AV fistula. Admitted to hospital with A-fib with RVR, initially received digoxin, now on amiodarone, beta-michael and warfarin, INR was 2.1 this morning. Hospital course was complicated by upper GI bleeding, had EGD showing hiatal hernia and sign of recent bleeding, clinically stable with stable hemoglobin, on Protonix twice a day and Carafate. History of DJD, right knee replacement/arthroplasty last month since then had another hospitalization for respiratory failure secondary to volume overload requiring intubation but extubated quickly after improvement in volume status. Outpatient estimated dry weight was decreased to 62 kg but weight has been around 65-66 kg through this hospitalization. Although weight is higher than her recent estimated dry weight, clinically seems euvolemic and asymptomatic, had full dialysis treatment yesterday, had about 1 L of UF. Overall clinically seems to be doing much better, although heart rate continues to be variable. -- Okay to discharge from nephrology standpoint when medically stable, next dialysis Wednesday. -- left arm nephrology precaution ( AVF) , avoid IV fluid, dose medications for eGFR less than 10 fluid restriction to less than 1.2 L/day, low-salt heart healthy diet -- Epogen with next dialysis treatment -- Continue renal and phosphate binder with meals. Will continue to follow while inpatient. Admission and Anticipated Discharge Date Admission Date: October 23, 2022 Subjective Mrs. Ward was seen and evaluated this morning. She was sitting up in bedside chair, comfortable, denied any shortness of breath, chest pain, palpitation. Appetite remains poor specially does not like hospital food. No nausea this morning. Blood pressure well controlled. Heart rate remains variable from 80 to low 100s on metoprolol. INR 2.1 this morning. Had dialysis yesterday, electrolyte acceptable. Hemoglobin 10.0. Review of Systems Review of Systems: Detailed review of system was otherwise unremarkable except mentioned above. Physical Exam Constitutional: WD/WN, vitals as above no acute distress Eyes: + anicteric sclerae ENMT: Ears: no hearing impairment Neck: normal visual inspection Respiratory: no respiratory distress Auscultation: lungs clear to auscultation bilaterally Cardiovascular: Rate/Rhythm: + tachycardic and + irregularly irregular Extremities: + AV fistula (left BC AVF with thrill and bruit, aneurysm stable.); no pedal edema Skin: + turgor decreased; no rashes, no jaundice and no pallor Neurologic: no focal motor deficits Psychiatric: Orientation: alert and oriented x 3 Results & Data Vital Signs (Past 12 Hours) Vital Signs Temp Pulse Pulse Pulse Resp BP Pulse Ox 10/31/22 11:28 37.0 C 82 17 111/71 96 10/31/22 08:20 36.8 C 97 H 18 120/72 96 10/31/22 07:13 99 H 10/31/22 06:45 104 H 122/79 10/31/22 02:59 36.6 C 109 H 18 100/51 L 98 10/31/22 00:19 100 H 18 102/61 97 O2 Del Method O2 Flow Rate 10/31/22 11:28 Room Air 10/31/22 08:20 Room Air 10/31/22 07:13 10/31/22 06:45 10/31/22 02:59 CPAP 2 10/31/22 00:19 CPAP 2 PG Care Time/CCT Total # of Minutes Spent Total Time Spent with Patient: Total time spent is greater than 50% in coordination of care (as documented) at patient's floor/unit and/or counseling patient: Coding Level of Care Code 93374 SUB INP/OBS CARE 2/35MIN Diagnoses End-stage renal disease on hemodialysis N18.6; Z99.2 Chronic anemia D64.9 Secondary hyperparathyroidism of renal origin N25.81 Rapid atrial fibrillation I48.91
--- NOTE | 2022-10-31 13:49 | Hospitalist Progress Note ---
Date of Service October 31, 2022 Assessment & Plan (1) Rapid atrial fibrillation: Plan: Patient is a 77F with H/O diastolic dysfunction (EF 60%, TTE 2022), valvular heart disease (mild AR/MR/TR), LAUREN on CPAP, pulmonary hypertension, HTN, hyperlipidemia, ESRD on HD, bronchial asthma, DM2 diet-controlled, GERD, comes because of not feeling well and found to be in rapid A-fib. Atrial fibrillation with RVR History of ESRD on HD, diastolic dysfunction, MAT. Underwent dialysis on the day of presentation; was found to have elevated heart rate; came to the ED. Normal TSH --CTA:No evidence for a pulmonary embolus. Stable cardiomegaly. No evidence for pulmonary edema. Mild mediastinal lymphadenopathy has improved. Moderate hiatus hernia, unchanged. No new focal lung consolidations to suggest a pneumonia. --Venous Doppler:There is no sonographic evidence of deep venous thrombosis identified in the right or left lower extremity. --ECHO: Moderate concentric LVH. No regional wall motion abnormality. EF 55%. Left atrium is severely dilated. Mild mitral regurgitation. LV diastolic function is abnormal. Mild pulmonary hypertension. Hold amlodipine due to hypotension Amiodarone discontinued Metoprolol dose increased 100 mg QAM, 125 mg QPM IV heparin discontinued due to bleeding issues Appreciate cardiology input Discussed with GI on 10/29/22: Okay to resume anticoagulation Coumadin resumed Monitor INR 2.1 today Needs follow-up with cardiology/Coumadin Clinic upon discharge Plan to discharge home today Anemia of chronic disease Acute GI bleed likely due to Wolf lesions H/O gastritis, hiatal hernia, adenomatous polyps S/P EGD: Large hiatal hernia. 2 Wolf erosions in the hernial sac with stigmata of recent bleeding, mucosa in the hernia sac very friable, friable gastric mucosa. Ok to resume Aspirin, anticoagulation per GI (Discussed on 10/29/22) Plan to continue Protonix 40 mg twice a day for 12 weeks Also started on Carafate 1 g 4 times daily for 2 weeks Monitor H&H and transfuse as needed Appreciate GI input Hb 10.0 today End-stage renal disease On Wednesday and Wednesday dialysis. Continue dialysis as per Nephrology Chronic diastolic CHF Valvular heart disease Volume status being managed with dialysis Monitor Obstructive sleep apnea CPAP with oxygen nightly Hypertension Amlodipine on hold Continue isosorbide, metoprolol Monitor H/O Bronchial asthma Continue home inhalers Hyperlipidemia On statin GERD Continue PPI Prediabetes Diet control DVT Px: Coumadin Admission and Anticipated Discharge Date Admission Date: October 23, 2022 Subjective Patient is seen and examined at bedside while having hemodialysis this morning States feeling well today No bleeding issues Heart rate better controlled Discussed with patient's family at bedside Also discussed with cardiology today Denies any chest pain, dyspnea, palpitations, nausea, vomiting, abdominal pain, dizziness Plan to discharge home today Review of Systems Review of Systems: All systems reviewed & are unremarkable except as noted in Subjective Physical Exam Physical Exam: Physical Exam: Vitals signs as noted above General Appearance:Moderately built and nourished, no apparent distress Head: normocephalic, Atraumatic Eyes: normal inspection, EOMI Neck: supple, Trachea midline Respiratory/Chest: Normal breath sounds, CTA, No accessory muscle use Cardiovascular: Irregularly irregular, No murmur Abdomen/GI:Soft, Non tender, Bowel sounds present Extremities/Musculoskeletal:normal inspection, Trace pedal edema Neurologic/Psych:Alert, awake, oriented, grossly no focal deficits Skin: normal color, warm Results & Data Results & Data Vital Signs (Past 12 Hours) Vital Signs Temp Pulse Pulse Pulse Resp BP Pulse Ox 10/31/22 11:28 37.0 C 82 17 111/71 96 10/31/22 08:20 36.8 C 97 H 18 120/72 96 10/31/22 07:13 99 H 10/31/22 06:45 104 H 122/79 10/31/22 02:59 36.6 C 109 H 18 100/51 L 98 O2 Del Method O2 Flow Rate 10/31/22 11:28 Room Air 10/31/22 08:20 Room Air 10/31/22 07:13 10/31/22 06:45 10/31/22 02:59 CPAP 2 Laboratory Results Short CBC 10/31/22 Range/Units 05:57 Hgb 10.0 L (12.0-16.0) g/dl Hct 33.5 L (37.0-47.0) % BMP 10/31/22 05:57 Sodium 138 Potassium 4.5 Chloride 104 Carbon Dioxide 26 BUN 26 H Creatinine 4.30 H D Glucose 95 Calcium 8.9
--- NOTE | 2022-10-31 14:11 | Discharge Summary ---
Date of Service October 31, 2022 Admission HPI Per Admitting Provider 77 f with Past medical history significant for diastolic dysfunction (EF 60%, TTE 2022), valvular heart disease (mild AR/MR/TR), LAUREN on CPAP, pulmonary hypertension, HTN, hyperlipidemia, ESRD on HD, bronchial asthma, DM2 diet- controlled, GERD, comes because of not feeling well and found to be in rapid A- fib. Patient was recently in the hospital for acute hypoxemic respiratory failure secondary to volume overload secondary to end-stage renal disease and she needed intubation and also required one unit PRBC. She was extubated October 05, 2022 volume status managed with dialysis. At the time of discharge she was not requiring oxygen. Initial plan was to discharge to rehab as there was no dialysis beds in rehab she was discharged home. She was doing fine today morning but at dialysis she was not feeling well having chills nauseous and seems dialysis was cut short as she was not feeling well. EMS was called. She was having irregular fast heart rate and 10 mg of IV diltiazem was given by the EMS with no significant improvement. In the ER a dose of IV Lopressor was given and he was not improving and was started amiodarone drip. Patient is currently sleeping. Daughter who is a physician is in the room. As per daughter there were no fevers, no chest pain no shortness of breath, no runny nose or sore throat, no diarrhea,. She is ambulating with a walker since her knee surgery as per daughter. When asked patient she states she is feeling better. Past medical history as mentioned above Past surgical history surgery for herniated disc. Left breast lesion excision, colonoscopy removal of left parotid gland. Partial removal of thyroid lobe. Appendectomy. Total abdominal hysterectomy removal of tubes Social history no smoking. No alcohol. No drug use Family history. Daughter had breast cancer. Brother has diabetes. Father had diabetes hypertension. Mother has hypertension. Sister has hypertension diabetes. Admission Exam Per Admitting Provider General- sleeping. Doesn't seem to be in distress. Head- atraumatic Eyes- PERRL. ENT- oropharynx clear Neck- supple, no JVD, no adenopathy, carotids +2/2, no bruits appreciated Lungs- clear to auscultation mild bibasilar crackles, no wheezing. Heart- irregular rhythm, tachycardia no murmur, no gallop. Abdomen- normal bowel sounds, soft, nontender, no distension. Extremities- no pretibial edema, no erythema seen. Neuro-sleepy; PERRL, EOMI; no facial palsy; no dysarthria; moves extremities. Skin- warm & dry Principal Diagnosis Atrial fibrillation with RVR Acute gastrointestinal bleeding Discharge Data Allergies Allergy/AdvReac Type Severity Reaction Status Date / Time pollen extracts Allergy Mild sneezing, Verified 10/29/22 09:31 watery eyes Consultations 10/23/22 20:07 ED Decision to Admit Stat 10/24/22 08:00 Consult Cardiology Routine 10/24/22 09:12 Consult Nephrology Routine 10/28/22 08:00 Consult Gastroenterology Routine Procedures Performed Operation Date: 10/29/22 16:30 Actual Procedures p Esophagogastroduodenoscopy(Not Applicable) - Osiris Cooper, DO Laboratory Results WBC 5.83 K/ul (4.8-10.8) 10/30/22 05:26 RBC 4.09 M/uL (4.20-5.40) L 10/30/22 05:26 Hgb 10.0 g/dl (12.0-16.0) L 10/31/22 05:57 Hct 33.5 % (37.0-47.0) L 10/31/22 05:57 MCV 87.0 fL (80.0-100.0) 10/30/22 05:26 MCH 26.2 pg (25.0-34.0) 10/30/22 05:26 MCHC 30.1 g/dL (32.0-36.0) L 10/30/22 05:26 RDW Std Deviation 48.9 fL (36.4-46.3) H 10/30/22 05:26 RDW Coeff of Luis 15.5 % (11.5-14.5) H 10/30/22 05:26 Plt Count 165 K/uL (130-400) 10/30/22 05:26 MPV 10.8 fL (9.4-12.4) 10/30/22 05:26 Immature Gran % (Auto) 0.4 % 10/27/22 08:17 Neut % (Auto) 63.4 % 10/27/22 08:17 Lymph % (Auto) 21.7 % 10/27/22 08:17 Shasta % (Auto) 9.9 % 10/27/22 08:17 Eos % (Auto) 3.8 % 10/27/22 08:17 Baso % (Auto) 0.8 % 10/27/22 08:17 Neut # (Auto) 3.21 K/uL (1.40-6.50) 10/27/22 08:17 Lymph # (Auto) 1.10 K/uL (1.20-3.40) L 10/27/22 08:17 Shasta # (Auto) 0.50 K/uL (0.11-0.59) 10/27/22 08:17 Eos # (Auto) 0.19 K/uL (0.00-0.50) 10/27/22 08:17 Baso # (Auto) 0.04 K/uL (0.00-0.20) 10/27/22 08:17 Immature Gran # (Auto) 0.02 K/uL (0.01-0.20) 10/27/22 08:17 Absolute Nucleated RBC 0.02 K/uL (0.00-0.12) 10/24/22 05:13 Nucleated RBC % (auto) 0.3 % 10/24/22 05:13 PT 22.2 Seconds (9.0-12.0) H 10/31/22 05:57 INR 2.1 (0.9-1.1) H 10/31/22 05:57 APTT 36.5 Seconds (21.0-31.0) H 10/28/22 11:39 PTT Ratio 1.3 10/28/22 11:39 Sodium 138 mmol/L (136-145) 10/31/22 05:57 Potassium 4.5 mmol/L (3.5-5.1) 10/31/22 05:57 Chloride 104 mmol/L (98-107) 10/31/22 05:57 Carbon Dioxide 26 mmol/L (21-32) 10/31/22 05:57 Anion Gap 8 (3-11) 10/31/22 05:57 BUN 26 mg/dl (6-23) H 10/31/22 05:57 Creatinine 4.30 mg/dl (0.6-1.2) H D 10/31/22 05:57 Est Cr Clr Drug Dosing 9.3 ml/min 10/31/22 05:57 Est GFR ( Amer) 10.8 ml/min 10/31/22 05:57 Est GFR (Non-Af Amer) 9.3 ml/min 10/31/22 05:57 BUN/Creatinine Ratio 6.0 (10-20) L 10/31/22 05:57 Glucose 95 mg/dl (70-99(Fasting)) 10/31/22 05:57 POC Glucose 117 mg/dl (70-99) H 10/27/22 15:56 Calcium 8.9 mg/dl (8.6-10.3) 10/31/22 05:57 Magnesium 2.2 mg/dl (1.7-2.4) 10/30/22 05:26 Iron 21 mcg/dl (35-150) L 10/26/22 08:06 TIBC 177 mcg/dl (250-450) L 10/26/22 08:06 Unsaturated IBC 156 mcg/dl (155-355) 10/26/22 08:06 Transferrin % Sat 12 % (15-50) L 10/26/22 08:06 Ferritin 1693.0 ng/ml (8-388) H 10/26/22 09:45 Total Bilirubin 0.5 mg/dl (0.2-1.0) 10/23/22 18:24 AST 18 U/L (13-39) 10/23/22 18:24 ALT 11 U/L (7-52) 10/23/22 18:24 Alkaline Phosphatase 141 U/L (34-104) H 10/23/22 18:24 Troponin I High Sens 48.4 pg/ml (0-14) H 10/24/22 16:30 Total Protein 7.5 gm/dl (6.0-8.3) 10/23/22 18:24 Albumin 4.1 gm/dl (3.4-5.0) 10/23/22 18:24 Globulin 3.4 gm/dl (2.5-4.0) 10/23/22 18:24 Albumin/Globulin Ratio 1.2 (0.9-2) 10/23/22 18:24 Lipase 59 U/L (11-82) 10/23/22 18:24 TSH 1.838 uIu/ml (0.300-4.500) 10/23/22 18:24 Nasal Screen MRSA (PCR) Negative (Negative) 10/30/22 08:30 SARS-CoV-2, RNA, NAAT NEGATIVE (NEGATIVE) 10/23/22 19:11 Impressions Venous Doppler Study 10/25/22 08:41 ULTRASOUND BILATERAL LOWER EXTREMITY VENOUS CLINICAL HISTORY: Lower extremity edema. COMPARISON STUDY: No priors. TECHNIQUE: Portable real-time, grayscale, and color Doppler sonography of the deep veins of the right and left lower extremity was performed from the inguinal crease to the calf. Compression and augmentation were utilized. FINDINGS: There is no sonographic evidence of deep venous thrombosis identified in the right or left lower extremity. The common femoral, superficial femoral, and popliteal veins are patent and normally compressible bilaterally. The greater saphenous vein and the profunda femoris vein at the junction with the common femoral vein are clear in both legs. The visualized calf veins are patent bilaterally. IMPRESSION: There is no sonographic evidence of deep venous thrombosis identified in the right or left lower extremity. ACT 112: Negative or not required by law. Electronically signed by: Kwan Gonzalez M.D. 10/25/2022 8:48 AM Chest X-Ray 10/25/22 09:19 SINGLE VIEW CHEST CLINICAL HISTORY: Congestive heart failure. FINDINGS: An AP, portable, upright chest radiograph is compared to study dated 10/23/2022 and correlated with chest CT dated 10/05/2022. There is a moderate to large hiatal hernia. Enlargement of the right mediastinal contours consistent with lymphadenopathy when correlated with the prior chest CT. The heart is enlarged noting atherosclerotic calcification of the thoracic aorta. There is pulmonary vascular congestion and mild interstitial edema. There are small pleural effusions with dependent consolidation. No pneumothorax is seen. The skeletal structures are osteopenic. The bony thorax is grossly intact. IMPRESSION: 1. Cardiomegaly with evidence of congestive failure and mild pulmonary edema. 2. Small pleural effusions with dependent consolidation. ACT 112: Negative or not required by law. Electronically signed by: Kwan Gonzalez M.D. 10/25/2022 10:17 AM Chest CTA 10/26/22 09:34 CHEST CTA for PULMONARY ARTERIES CT DOSE: 763.42 mGy.cm HISTORY: Shortness of breath. TECHNIQUE: Multiaxial CT images of the chest were performed following the intra venous administration of contrast to evaluate the pulmonary arteries. 3D/Maximal intensity projection images were also obtained. Sagittal and coronal reformations were also reviewed. A dose lowering technique was utilized adhering to the principles of ALARA. COMPARISON STUDY: Chest CT 10/05/2022. FINDINGS: The central airways are patent. No pneumothorax. No pleural effusions. A few bibasilar linear densities favor subsegmental atelectasis. Otherwise, no focal lung consolidations to suggest a pneumonia. No evidence for pulmonary edema. No acute fractures identified. Limited views of the upper abdomen demonstrate a normal liver, spleen, and visualized adrenal glands. Multinodular thyroid goiter again noted. Normal caliber esophagus. There is a moderate hiatus hernia, unchanged. The heart remains enlarged. No pericardial effusion. Mild mediastinal lymphadenopathy has improved. No hilar lymphadenopathy. Leftward deviation of the proximal trachea due to the large right thyroid goiter, u nchanged. Normal caliber thoracic aorta with no evidence for a dissection. Severe coronary artery calcifications are noted. No filling defects within the pulmonary arteries to suggest a pulmonary embolus. IMPRESSION: 1. No evidence for a pulmonary embolus. 2. Stable cardiomegaly. No evidence for pulmonary edema. 3. Mild mediastinal lymphadenopathy has improved. 4. Moderate hiatus hernia, unchanged. 5. No new focal lung consolidations to suggest a pneumonia. ACT 112: Negative or not required by law. Electronically signed by: Guilherme Rome M.D. 10/26/2022 10:48 AM Ordered Studies 10/25/22 08:41 US venous doppler LE BI Routine 10/26/22 09:34 CT angio chest PE protocol Stat Hospital Course (1) Rapid atrial fibrillation: Patient is a 77F with H/O diastolic dysfunction (EF 60%, TTE 2022), valvular heart disease (mild AR/MR/TR), LAUREN on CPAP, pulmonary hypertension, HTN, hyperlipidemia, ESRD on HD, bronchial asthma, DM2 diet-controlled, GERD, comes because of not feeling well and found to be in rapid A-fib. Atrial fibrillation with RVR History of ESRD on HD, diastolic dysfunction, MAT. Underwent dialysis on the day of presentation; was found to have elevated heart rate; came to the ED. Normal TSH --CTA:No evidence for a pulmonary embolus. Stable cardiomegaly. No evidence for pulmonary edema. Mild mediastinal lymphadenopathy has improved. Moderate hiatus hernia, unchanged. No new focal lung consolidations to suggest a pneumonia. --Venous Doppler:There is no sonographic evidence of deep venous thrombosis identified in the right or left lower extremity. --ECHO: Moderate concentric LVH. No regional wall motion abnormality. EF 55%. Left atrium is severely dilated. Mild mitral regurgitation. LV diastolic function is abnormal. Mild pulmonary hypertension. Hold amlodipine due to hypotension Amiodarone discontinued Metoprolol dose increased 100 mg QAM, 125 mg QPM IV heparin discontinued due to bleeding issues Appreciate cardiology input Discussed with GI on 10/29/22: Okay to resume anticoagulation Coumadin resumed Monitor INR 2.1 today Needs follow-up with cardiology/Coumadin Clinic upon discharge Plan to discharge home today Anemia of chronic disease Acute GI bleed likely due to Wolf lesions H/O gastritis, hiatal hernia, adenomatous polyps S/P EGD: Large hiatal hernia. 2 Wolf erosions in the hernial sac with stigmata of recent bleeding, mucosa in the hernia sac very friable, friable gastric mucosa. Ok to resume Aspirin, anticoagulation per GI (Discussed on 10/29/22) Plan to continue Protonix 40 mg twice a day for 12 weeks Also started on Carafate 1 g 4 times daily for 2 weeks Monitor H&H and transfuse as needed Appreciate GI input Hb 10.0 today End-stage renal disease On Wednesday and Wednesday dialysis. Continue dialysis as per Nephrology Chronic diastolic CHF Valvular heart disease Volume status being managed with dialysis Monitor Obstructive sleep apnea CPAP with oxygen nightly Hypertension Amlodipine on hold Continue isosorbide, metoprolol Monitor H/O Bronchial asthma Continue home inhalers Hyperlipidemia On statin GERD Continue PPI Prediabetes Diet control DVT Px: Coumadin Total Time Total Time Spent Total Time Spent (In Minutes): 56 minutes Discharge Plan Discharge Items Patient Disposition: Home - Home Health Services Reason For Visit: RAPID AFIB Discharge Diagnosis: Atrial fibrillation with RVR Acute gastrointestinal bleeding Activity: Per Instructions section Exercise/Sports: Wait until after follow-up appointment Non-emergency contact: Primary Care Provider, Specialist, [employer] Solder Stripper, Ship Scaler and Outreach Team Member Call non-emergency contact if: you have any medication questions, your symptoms worsen, your pain is concerning for you and you have a fever Follow-up/Referrals: Alberto Yuen MD [Primary Care Provider] - (Date & Time 11/05/2022 11:00 AM Provider Alberto Yuen III, MD Department [facility] ) Diet: Dialysis Renal Fluids: 1200ml (5 cups) Addtl Attending Provider Instructions: Follow-up with your primary care physician Dr. Yuen on 11/05/2022 11:00 AM Follow-up with your coat padder Dr. Womack/ in 3-4 weeks Follow-up with your counterintelligence agent for dialysis Follow-up with your operating system designer Dr.Ashley Cooper as needed if recurrence of gastrointestinal bleeding -- Your PT/INR on 10/31/2022 is 2.1. Take 3 mg Coumadin on 10/31/2022 and 11/01/22. (Target PT/INR is 2.0-3.0.) -- Obtain blood test PT/INR on 11/02/22 and follow-up with Coumadin clinic for further recommendations on Coumadin dosing. Seek immediate medical attention if your symptoms reoccur or worsen Please take all medications as instructed on discharge list below. Please call if you have any questions or problems. You can reach a [facility] hospitalist on duty at [facility] 24 hours a day by calling [phone] Pending Studies at Discharge: No Stand-Alone Forms: My [facility], Smoking Cessation Medications and DC Order Prescriptions: New metoprolol succinate 25 mg Tablet Extended Release 24 Hr 25 mg PO UD Qty: 30 1RF Rx Instructions: Take Metoprolol Succinate 100mg every morning and 125mg at bedtime metoprolol succinate 100 mg tablet extended release 24 hr 100 mg PO UD Qty: 60 1RF Rx Instructions: Take Metoprolol Succinate 100mg every morning and 125mg at bedtime sucralfate [Carafate] 1 gram tablet 1 g PO ACHS 12 Days Qty: 48 0RF warfarin 1 mg tablet 1 mg PO UD Qty: 30 1RF Rx Instructions: To be determined by Coumadin Clinic warfarin 2.5 mg tablet 2.5 mg PO UD Qty: 30 0RF Rx Instructions: To be determined by Coumadin Clinic warfarin 5 mg tablet 5 mg PO UD Qty: 30 0RF Rx Instructions: To be determined by Coumadin Clinic Continued atorvastatin 40 mg tablet 40 mg PO HS lidocaine-prilocaine 2.5-2.5 % cream See Rx Instructions topical .COMPLEX Rx Instructions: apply small amount to access site (AVF) 1 to 2 hours before dialysis. cover with occlusive dressing (SARAN WRAP) polyethylene glycol 3350 [Miralax] 17 gram powder in packet 17 g PO BID PRN (Reason: Constipation) Rx Instructions: pt uses prn nitroglycerin [Nitrostat] 0.4 mg tablet, sublingual 0.4 mg sublingual Q5M PRN (Reason: Chest Pain) Rx Instructions: do not exceed 3 doses per episode famotidine 20 mg tablet 20 mg PO AMHS triamcinolone acetonide 0.025 % lotion 1 applic topical BID PRN (Reason: Rash) montelukast [Singulair] 5 mg Tablet,Chewable 10 mg PO DAILY PRN (Reason: allergies) Trelegy Ellipta 100-62.5-25 mcg Blister With Device 1 inh INHALATION QAM Rx Instructions: rinse after use isosorbide mononitrate 30 mg tablet extended release 24 hr 30 mg PO QAM fluticasone propionate 50 mcg/actuation spray,suspension 2 spray INTRANASAL QAM PRN (Reason: Allergy Symptoms) albuterol sulfate [Ventolin HFA] 90 mcg/actuation HFA aerosol inhaler 2 puff INHALATION Q6 PRN (Reason: Wheezing) sevelamer carbonate [Renvela] 800 mg tablet 1,600 mg PO TIDM ondansetron HCl 4 mg tablet 4 mg PO Q8 PRN (Reason: Nausea) Rx Instructions: TAKE ONE TABLET BY MOUTH TWICE DAILY NEEDED FOR NAUSEA / VOMITING ProRenal 8 mg iron-800 mcg-1,000 unit tablet 1 tab PO QAM aspirin 81 mg tablet,delayed release (DR/EC) 81 mg PO DAILY Rx Instructions: Take to prevent blood clots. tramadol 50 mg tablet 50 mg PO DAILY PRN (Reason: Pain) Qty: 20 0RF Changed pantoprazole 40 mg tablet,delayed release (DR/EC) 40 mg PO BID Qty: 60 2RF Discontinued amlodipine 2.5 mg Tablet 2.5 mg PO QAM Discharge Orders: Discharge Order (Routine); Ordered 10/31/22 Ordered By: Hieu Rocha Admission Data Admit Date/Time: 10/23/22 21:43 Attending Provider: Hieu Rocha Admit Provider: Jorge Joseph Primary Care Provider: Alberto Yuen Other Providers: Jorge Joseph ; Benigno Womack ; Nick Schradre ; Agatha Black ; Ronnie Kimble ; Yulia Alicea ; Lisa Acosta ; Mara Turcios ; Hailey Kasper ; Antonio Corona ; Bo Dixon ; Aquilino Rodriguez ; Allen Flores ; Keshav Wu ; Caroline Inman ; Sonya Julien ; aDya Wagner ; Ann Rivero ; Ting Rodriguez ; Timmy Albrecht ; Anibal Altman ; Osiris Cooper ; Sara Robertson Jr Other Interventions: Discharge Summary Assessment (RN) Last Done: 10/29/22 10:53
[2022-10-31] MEDS ORDERED: WARFARIN SOD 3 MG TAB PO SCH (16:00)
== END 2022-10-31 15:05 | disposition home health service (06) | DRG 308 ==
LOC: ED 18:13 → SUATTDRO 21:43 → 2E 21:43

== ENCOUNTER 2023-05-16 13:02 | Inpatient (IN) ==
--- OUTSIDE RECORDS SUMMARY | 2023-05-16 13:09 | External Medical Summary | Summary of Care ---
Author Name Unknown Organization [facility] Address [address] [place] [address] Phone [phone] Care Team Providers Care Acetone Button Paster Name Role Phone Alpa CHAMBERLAIN MD, Alberto Milan Primary Care Provider [phone] Reason for Visit * Reason Comments Dosage Adjustment Via Phone (anticoag Cl inic) Encounter Details Date Type Department Care Team (Latest Contact Info) Description 05/11/2023 6:30 AM EDT Anticoagulation Pharmacy Call Center [phone] [place] [address] [facility] [address] [place] [address] Persistent atrial fibrillation (HCC)* Allergies Active Allergy Reactions Criticality Noted Date Comments Pollen 06/24/2016 documented as of this encounter (statuses as of 05/11/2023) Medications Medication Sig Dispensed Refills Start Date End Date Status Lidocaine-Priloca ine, Bulk, 2.5-2.5 % CREA Use 1 Dose as directed as needed for Pain. 30 g 6 07/15/2017 Active Triamcinolone Acetonide 0.025 % LOTNIndications:I tchy scalp Apply topically to affected area 2 times a day. To affected area. 60 mL 5 10/19/2017 Active oxygen GASIndications:OS A (obstructive sleep apnea) 3 LPM bled through CPAP 5 cwp during hours of sleep 1 Each 0 10/28/2017 Active polyethylene glycol 3350 (MIRALAX) 255 gram powder Take 17 g by mouth 2 times a day. Dissolve one heaping tablespoon in 8 ounces of water or juice. 1 Bottle 2 03/22/2018 Active sevelamer carbonate (RENVELA) 800 MG Tablet Take 2 Tablets by mouth in the morning and 2 Tablets at noon and 2 Tablets in the evening. Take with meals. 0 06/20/2018 Active Lidocaine-Priloca ine 2.5-2.5 % External Cream (Emla) APPLY SMALL AMOUNT TO ACCESS SITE (AVF) 1 TO 2 HOURS BEFORE DIALYSIS. COVER WITH OCCLUSIVE DRESSING (SARAN WRAP) 0 09/24/2021 Active Nitroglycerin 0.4 MG Sublingual Tablet Sublingual (Nitrostat)Indica tions:Angina pectoris (HCC) Place under the tongue 1 Tablet as needed for Pain, Chest. May repeat 3 times. If chest pain continues, call 911. 25 Tablet 11 10/07/2021 Active Famotidine 20 MG Oral Tablet (Pepcid) Take 1 Tablet by mouth in the morning and 1 Tablet before bedtime. 180 Tablet 3 09/01/2022 Active Sucralfate 1 GM Oral Tablet Take 1 Tablet by mouth in the morning and 1 Tablet at noon and 1 Tablet in the evening and 1 Tablet before bedtime. 0 Active Ondansetron HCl 4 MG Oral Tablet (Zofran) Take 1 Tablet by mouth every 8 hours as needed for Nausea. 0 Active traMADol HCl 50 MG Oral Tablet (Ultram) Take 1 Tablet by mouth daily as needed. 0 Active ProRenal + D w/ [place]-3 Oral Capsule Take 1 Tablet by mouth daily. 30 Capsule 0 11/05/2022 Active Metoprolol Succinate ER 50 MG Oral Tablet Extended Release 24 Hour (Toprol XL) One tablet by mouth two times per day. Hold morning dose on dialysis days 180 Tablet 3 11/26/2022 Active Warfarin Sodium 5 MG Oral Tablet (Coumadin) Take 1 Tablet by mouth every evening. Or as directed by anticoagulation clinic 90 Tablet 1 12/15/2022 Active Trelegy Ellipta 100-62.5-25 MCG/ACT Aerosol Powder Breath Activated (Fluticasone-Umec lidinium-Vilanter ol) Inhale 1 Puff by mouth in the morning. Rinse after. 180 Blister Dosing Unit 1 01/01/2023 Active Atorvastatin Calcium 40 MG Oral Tablet (Lipitor) Take 1 Tablet by mouth in the morning. 90 Tablet 1 01/01/2023 Active Pantoprazole Sodium 40 MG Oral Tablet Delayed Release (Protonix) Take 1 Tablet by mouth in the morning and 1 Tablet before bedtime. 180 Tablet 2 12/31/2022 Active Isosorbide Mononitrate ER 60 MG Oral Tablet Extended Release 24 Hour (Imdur) Take 1 Tablet by mouth in the morning. 0 Active Betaxolol HCl 10 MG Oral Tablet Take by mouth. 0 Active Fluticasone-Salme terol 250-50 MCG/ACT Inhalation Aerosol Powder Breath Activated (Advair Diskus) Inhale 1 Puff by mouth in the morning and 1 Puff before bedtime. 0 Active CPAP every night at bedtime. 0 Active Warfarin Sodium 2.5 MG Oral Tablet (Coumadin) Take 1 Tablet by mouth every evening. 90 Tablet 0 03/05/2023 Active Warfarin Sodium 1 MG Oral Tablet (Coumadin) Take 1 Tablet by mouth every evening. 90 Tablet 0 03/05/2023 Active Ventolin HFA 108 (90 Base) MCG/ACT Inhalation Aerosol SolutionIndicatio ns:Asthma, moderate persistent INHALE TWO PUFFS EVERY 6 HOURS NEEDED FOR WHEEZING 54 g 1 04/01/2023 Active Montelukast Sodium 10 MG Oral Tablet (Singulair) Take 1 Tablet by mouth at bedtime. 90 Tablet 1 04/02/2023 Active Fluticasone Propionate 50 MCG/ACT Nasal Suspension (Flonase) Administer 2 Sprays into each nostril in the morning. 48 g 1 04/02/2023 Active documented as of this encounter (statuses as of 05/11/2023) Active Problems Problem Noted Date Diagnosed Date Persistent atrial fibrillation 10/30/2022 Osteoarthritis of knees, bilateral 05/05/2022 Congestive cardiac failure 05/05/2022 Pulmonary hypertension, unspecified 01/14/2022 End-stage renal disease on hemodialysis 01/15/20 History of partial thyroidectomy 04/11/2019 Goiter 01/05/2019 Chronic glomerulonephritis 04/15/2017 Vitamin D deficiency, unspecified 03/10/2017 Secondary hyperparathyroidism of renal origin Hypertensive kidney disease with CKD (chronic kidney disease) stage V 12/30/2016 LAUREN (obstructive sleep apnea) 02/14/2016 Nocturnal hypoxemia 02/14/2016 Kidney disease, chronic, stage V (GFR under 15 m l/min) 12/02/2015 Overview: Per CKD protocol #1 HTN, goal below 140/90 02/01/2015 Dyslipidemia, goal LDL below 100 02/01/2015 Gout 04/20/2013 Anemia, chronic disease 04/20/2013 Osteoporosis 04/20/2013 Glaucoma 04/20/2013 GERD (gastroesophageal reflux disease) 4 Asthma, moderate persistent 04/20/2013 documented as of this encounter (statuses as of 05/11/2023) Resolved Problems Problem Noted Date Diagnosed Date Resolved Date Angina pectoris 10/19/2017 06/25/2022 CKD stage 5 due to type 2 diabetes mellitus 04/15/2017 09/19/2020 DM type 2 causing CKD stage 5 12/30/2016 10/19/2017 Other chest pain 02/01/2015 07/15/2017 CKD (chronic kidney disease) stage 4, GFR 15-29 ml/min 04/20/2013 12/04/2015 Overview: Per CKD protocol #1 Type 2 diabetes mellitus wit h hemoglobin A1c goal of less than 8.0% 04/20/2013 09/19/2020 Overview: ICD-10 update of inactive term documented as of this encounter (statuses as of 05/11/2023) Immunizations Name Administration Dates Next Due COVID-19 mRNA, LNP-s, No Pre serve, 2-Dose Series ([employer]) 06/03/2021,02/22/2021,12/07/2020,10/23,04/18/2020,03/28/2020 COVID-19, MRNA-LNP, 23-24, P F, 30 MCG/0.3 mL, 12 YRS AND ABOVE, IM (PFIZER-Comirnaty) 12/05/2022 Pneumococcal Conjugate Vacc, 13 Valent (Prevnar) 12/12/2014 Pneumococcal Polysaccharide PPV23 (Pneumovax) 05/27/2018,06/01/2013,12/09/2011 Seasonal Influenza, PF, 6 M & above, IM , (FluLaval or Fluzone) 11/12/2016 Seasonal Influenza, Quadriva lent Hd (Fluzone Hd) 11/05/2022,11/21/2021 Seasonal Influenza, Quadriva lent Hd, 65+ Yrs 11/25/2020,11/22/2019 Seasonal Influenza, Quadriva lent, No Preserve, IM 10/31/2018,10/25/2017,11/26/2015 Seasonal Influenza, Split, I IV3, With Preserve, Inj 12/07/2014,11/21/2013,03/03/2013,12/08 Seasonal Influenza, Trivalen t, High Dose, No Preserve, IM 11/22/2019 TDAP (age 10 and older)(Boostrix) 06/01/2013 Zoster Vaccine Recombinant (Shingrix) 12/24/2018 ,07/30/2018 documented as of this encounter Social History Tobacco Use Types Packs/Day Years Used Date Smoking Tobacco: Never Smokeless Tobacco: Never Alcohol Use Standard Drinks/Week Comments No 0 (1 standard drink = 0.6 oz pur e alcohol) PHQ-2 Answer Date Recorded PHQ Adult Total Score 4 09/09/2021 Hunger Vital Sign Answer Date Recorded Within the past 12 months, y ou worried that your food would run out before you got the money to buy more. Never true 03/13/19 23 Within the past 12 months, t he food you bought just didn't last and you didn't have money to get more. Never true 03/13/2022 Sex and Gender Information Value Date Recorded Sex Assigned at Female 09/09/2021 11:19 AM EDT Gender Identity Female 09/09/2021 11:19 AM EDT Sexual Orientation Straight 09/09/2021 11 :19 AM EDT Job Start Date Occupation Industry Not on file Not on file Not on file documented as of this encounter Progress Notes * Jamari Contreras, [facility] - 05/11/2023 12:48 PM EDT Contacts Type Contact Phone/Fax 05/11/2023 12:46 PM EDT Phone (Outgoing) ghulam pak (Emergency Contact) [phone] spoke Ghulam Subjective Patient Findings Negatives: Signs/symptoms of thrombosis, Signs/symptoms of bleeding, Change in health, Change in alcohol use, Change in activity, Upcoming invasive procedure, Missed doses, Extra doses, Change in medications, Change in diet/appetite, Bruising Advised patient to contact Anticoagulation Clinic if any unusual bruising or bleeding, recent illness, changes in medication, or questions/concerns. PT/INR results, Coumadin dose instructions, and next PT/INR date communicated as noted by Pharmacist: Yes Jamari Contreras CPhT 05/11/2023, 12:48 PM * Jamila Low RPh - 05/11/2023 9:36 AM EDT Coumadin Clinic (region specific) Objective Current Warfarin Dose As of 05/11/2023 Warfarin maintenance plan: 7.5 mg (5 mg x 1.5) every Wed; 5 mg (5 mg x 1) all other days INR Result As of 05/11/2023 INR goal: 2.0-3.0 INR used for dosin.1 (05/10/2023) Assessment & Plan Warfarin Plan As of 05/11/2023 Full warfarin instructions: 7.5 mg every Wed; 5 mg all other days No change documented: Jamila Low RPh Next INR check: 05/17/2023 Repeat PT/INR in 1 week(s) Weekly dose: not changed Additional Dosing Information: Description [employer] Home machine - 1 wk check per pt request Has 1 mg, 2.5 mg, and 5 mg Patient receives hemodialysis MWF. 05/06/23 & 05/13/23- laser eye surgery. No hold needed Tech to contact patient with dose instructions as noted. Jamila Low RPh 05/11/2023, 9:36 AM * Sonya Maya PHARM Tech - 05/11/2023 8:09 AM EDT Patient Phone Numbers Spoke with Ghulam and obtained verbal INR result from yesterday, 05/10/23. INR = 2.1 Thank you, Sonya Maya Computer Applications Developer [facility] 05/11/2023,8:09 AM documented in this encounter Plan of Treatment Upcoming Encounters Date Type Department Care Team (Late st Contact Info) Description 05/18/2023 6:30 AM EDT Anticoagulation Pharmacy Call Center [phone] [facility] [place] [address] [address] [place], [facility] [address] [facility] [place] [address] 05/20/2023 1:20 PM EDT Office Visit Family [facility] [address] [facility] [place] [address] Akiko Rae MD [address] [facility] [place] [address] 05/26/2023 8:00 AM EDT PulmDiagnostic Pulmonary Function Lab, [facility] [address] [facility] [place] [address] [address], [address] [facility] [place] [address] 05/26/2023 8:40 AM EDT Telemedicine Pulmonary Medicine, [place] [address] [place] [address] Jesus Dougherty MD [address] [place] [address] Cart, Telemed Pulm Gw [address] [facility] [place] [address] 07/06/2023 12:00 PM EDT Office Visit Gastroenterology, [facility] [address] [place] [address] Caroline Inman CRNP [address] [place] [address] 12/07/2023 8:30 AM EDT Office Visit Cardiology, [facility] [address] [place] [address] Vivi Vera CRNP [address] [place] [address] Health Maintenance Due Date Last Done Comments Depression Screening 09/09/2022 09/09/2021 DTaP,Tdap,and Td Vaccines (2 - Td or Tdap) 06/02/2023 06/01/2013 Pneumococcal Vaccine: 65+ Years Completed 05/27/2018, 12/12/2014, 06/01/2013, Additional history exists Zoster Vaccines Completed 12/24/2018, 07/30/2018 Diabetic Foot Exam Discontinued 01/05/2019, 0 03/22/2018, 05/04/2017, Additional history exists COLONOSCOPY-EVERY 5 YRS AGES 18-100 Discontinued 06/12/2021, 06/12/2021, 12/27/2014 Diabetic Eye Exam Discontinued 06/26/2021, , 06/28/2018, Additional history exists Influenza Vaccine (FLU shot) Completed 11/05/2022, 11/21/2021, 11/25/2020, Additional history exists COVID-19 Vaccine Completed 12/05/2022, 01/2022, 02/22/2021, Additional history exists GARDASIL-HPV IMMUNIZATION SERIES Aged Out No longer eligible based on patient's age to complete this topic Hepatitis B Aged Out No longer eligi ble based on patient's age to complete this topic MENINGOCOCCAL (MENACTRA/MENVEO) Aged Out No longer eligible based on patient's age to complete this topic documented as of this encounter Medical Devices Not on filedocumented as of this encounter Procedures Procedure Name Priority Date/Time Associated Diagnosis Comments OUTSIDE LAB-PT/INR Routine 05/10/2023 documented in this encounter Results * OUTSIDE LAB-PT/INR (05/10/2023) INR-OUTSIDE LAB 2.1 History Per Patient LABORATORY documented in this encounter Visit Diagnoses Diagnosis Persistent atrial fibrillation (HCC)- Primary Atrial fibrillation documented in this encounter Care Teams Acetone Button Paster Relationship Specialty Start Date End Date Alpa III, Alberto E, MD [address] [place] [address] PCP - General Family Medicine 04/20/13 documented as of this encounter
--- OUTSIDE RECORDS SUMMARY | 2023-05-16 13:10 | External Medical Summary | Summary of Care ---
Author Name Unknown Organization [facility] Address [address] [place] [address] Phone [phone] Care Team Providers Care Shuttle Fitting Supervisor Name Role Phone Alpa CHAMBERLAIN MD, Albreto Milan Primary Care Provider [phone] Encounter Details Date Type Department Care Team (Late st Contact Info) Description 05/10/2023 Result Scan Unspecified Department Jamila Low, [facility] [address] [place] [address] <No scans attached> Allergies Active Allergy Reactions Criticality Noted Date [...] needed. 0 Active ProRenal + D w/ [place]-3 Oral Capsule Take 1 Tablet by mouth [...] 01/14/2022 End-stage renal disease on hemodialysis 01/15/20 22 History of partial thyroidectomy 04/11/2019 Goiter 01/05/2019 [...] mRNA, LNP-s, No Pre serve, 2-Dose Series ([employer]) 06/03/2021,02/22/2021,12/07/2020,10/23,04/18/2020,03/28/2020 COVID-19, MRNA-LNP, 23-24, P F, 30 [...] on file documented as of this encounter Plan of Treatment Upcoming Encounters Date Type Department Care Team (Late st Contact Info) Description 05/20/2023 1:20 PM EDT Office Visit Family Practice [facility] [address] [place] [address] Akiko Rae MD [address] [place] [address] 05/26/2023 8:00 AM EDT PulmDiagnostic Pulmonary Function Lab, [facility] 132 [facility] [place] [address] [address], [address] [place] [address] 05/26/2023 8:40 AM EDT Telemedicine Pulmonary Medicine, [place] [address] [place] [address] Jesus Dougherty MD [address] [place] [address] Cart, Telemed Pulm Gw [address] [facility] [place] [address] 07/06/2023 12:00 PM EDT Office Visit [facility]ology, [facility] [place] [address] Caroline Inman CRNP [facility] [place] [address] 12/07/2023 8:30 AM EDT Office Visit Cardiology, [facility] 132 [facility] [place] [address] Vivi Vera CRNP [address] [place] [address] Health Maintenance Due Date Last Done Comments [...] Name Priority Date/Time Associated Diagnosis Comments OUTSIDE LAB RESULTS 05/10/2023 documented in this encounter Results * OUTSIDE LAB RESULTS (05/10/2023) 05/10/2023 Jamila Low [facility] LABORATORY documented in this encounter Care Teams Shuttle Fitting Supervisor Relationship Specialty Start Date End Date Alberto Yuen III, MD [address] [place] [address] PCP - General Family Medicine 04/20/13 documented as of this encounter
--- OUTSIDE RECORDS SUMMARY | 2023-05-16 13:10 | External Medical Summary | Summary of Care ---
Author Name Unknown Organization [facility] Address [address] [place] [address] Phone [phone] Care Team Providers Care Adjunct Professor Of Voice Name Role Phone Alpa CHAMBERLAIN MD, Alberto Milan Primary Care Provider [phone] Reason for Visit * Reason Comments Follow Up Encounter Details Date Type Department Care Team (Late st Contact Info) Description 05/04/2023 1:30 PM EDT Office Visit Cardiology, [facility] [address] [place] [address] Vivi Vera CRNP [address] [place] [address] Paroxysmal atrial fibrillation (HCC)*; Nonrheumatic aortic valve stenosis; Nonrheumatic mitral valve regurgitation; ESRD on dialysis (HCC); Dyslipidemia, goal LDL below 100 Allergies Active Allergy Reactions Criticality Noted Date Comments Pollen 06/24/2016 documented as of this encounter (statuses as of 05/04/2023) Medications Medication Sig Dispensed Refills Start Date End Date Status Lidocaine-Priloc yobani, Bulk, 2.5-2.5 % CREA Use 1 Dose as directed as needed for Pain. 30 g 6 8 Active Triamcinolone Acetonide 0.025 % LOTNIndications: Itchy scalp Apply topically to affected area 2 times a day. To affected area. 60 mL 5 8 Active oxygen GASIndications:O SA (obstructive sleep apnea) 3 LPM bled through CPAP 5 cwp during hours of sleep 1 Each 0 8 Active polyethylene glycol 3350 (MIRALAX) 255 gram powder Take 17 g by mouth 2 times a day. Dissolve one heaping tablespoon in 8 ounces of water or juice. 1 Bottle 2 9 Active sevelamer carbonate (RENVELA) 800 MG Tablet Take 2 Tablets by mouth in the morning and 2 Tablets at noon and 2 Tablets in the evening. Take with meals. 0 9 Active Lidocaine-Priloc yobani 2.5-2.5 % External Cream (Emla) APPLY SMALL AMOUNT TO ACCESS SITE (AVF) 1 TO 2 HOURS BEFORE DIALYSIS. COVER WITH OCCLUSIVE DRESSING (SARAN WRAP) 0 2 Active Nitroglycerin 0.4 MG Sublingual Tablet Sublingual (Nitrostat)Indic ations:Angina pectoris (HCC) Place under the tongue 1 Tablet as needed for Pain, Chest. May repeat 3 times. If chest pain continues, call 911. 25 Tablet 11 2 Active Famotidine 20 MG Oral Tablet (Pepcid) Take 1 Tablet by mouth in the morning and 1 Tablet before bedtime. 180 Tablet 3 3 Active Sucralfate 1 GM Oral Tablet Take [...] needed. 0 Active ProRenal + D w/ Lamar-3 Oral Capsule Take 1 Tablet by mouth daily. 30 Capsule 0 3 Active Metoprolol Succinate ER 50 MG Oral Tablet Extended Release 24 Hour (Toprol XL) One tablet by mouth two times per day. Hold morning dose on dialysis days 180 Tablet 3 3 Active Warfarin Sodium 5 MG Oral Tablet (Coumadin) Take 1 Tablet by mouth every evening. Or as directed by anticoagulation clinic 90 Tablet 1 3 Active Trelegy Ellipta 100-62.5-25 MCG/ACT Aerosol Powder Breath Activated (Fluticasone-Ume clidinium-Vilant josseline) Inhale 1 Puff by mouth in the morning. Rinse after. 180 Blister Dosing Unit 1 3 Active Atorvastatin Calcium 40 MG Oral Tablet (Lipitor) Take 1 Tablet by mouth in the morning. 90 Tablet 1 3 Active Pantoprazole Sodium 40 MG Oral Tablet Delayed Release (Protonix) Take 1 Tablet by mouth in the morning and 1 Tablet before bedtime. 180 Tablet 2 3 Active Isosorbide Mononitrate ER 60 MG Oral Tablet Extended Release 24 Hour (Imdur) Take 1 Tablet by mouth in the morning. 0 Active Betaxolol HCl 10 MG Oral Tablet Take by mouth. 0 Active Fluticasone-Salm eterol 250-50 MCG/ACT Inhalation Aerosol Powder Breath Activated (Advair Diskus) Inhale 1 Puff by mouth in the morning and 1 Puff before bedtime. 0 Active CPAP every night at bedtime. 0 Active Warfarin Sodium 2.5 MG Oral Tablet (Coumadin) Take 1 Tablet by mouth every evening. 90 Tablet 0 4 Active Warfarin Sodium 1 MG Oral Tablet (Coumadin) Take 1 Tablet by mouth every evening. 90 Tablet 0 4 Active Ventolin HFA 108 (90 Base) MCG/ACT Inhalation Aerosol SolutionIndicati ons:Asthma, moderate persistent INHALE TWO PUFFS EVERY 6 HOURS NEEDED FOR WHEEZING 54 g 1 4 Active Montelukast Sodium 10 MG Oral Tablet (Singulair) Take 1 Tablet by mouth at bedtime. 90 Tablet 1 4 Active Fluticasone Propionate 50 MCG/ACT Nasal Suspension (Flonase) Administer 2 Sprays into each nostril in the morning. 48 g 1 4 Active amLODIPine Besylate 5 MG Oral Tablet (Norvasc) Take 1 Tablet by mouth in the morning. 0 05/04/19 24 Discontinu ed(Medicat ion List Clean Up) documented as of this encounter (statuses as of 05/04/2023) Active Problems Problem Noted Date Diagnosed Date [...] as of this encounter (statuses as of 05/04/2023) Resolved Problems Problem Noted Date Diagnosed Date [...] as of this encounter (statuses as of 05/04/2023) Immunizations Name Administration Dates Next Due COVID-19 mRNA, LNP-s, No Pre serve, 2-Dose Series ([employer]) 06/03/2021,02/22/2021,12/07/2020,10/23,04/18/2020,03/28/2020 COVID-19, MRNA-LNP, 23-24, P F, 30 [...] on file documented as of this encounter Last Filed Vital Signs Vital Sign Reading Time Taken Comments Blood Pressure 132/62 05/04/2023 1:31 PM EDT Pulse 80 05/04/2023 1:31 PM EDT Temperature - - Respiratory Rate 14 05/04/2023 1:31 PM EDT Oxygen Saturation - - Inhaled Oxygen Concentration - - Weight 64.9 kg (143 lb) 05/04/2023 1:31 PM EDT Height - - Body Mass Index 27.71 03/04/2023 10:31 AM EST documented in this encounter Progress Notes * Vivi Vera CRNP - 05/04/2023 1:30 PM EDT 05/04/2023 Cardiology Follow Up Primary Rn Admission: Dr. Womack Cardiac Problems: Paroxysmal A-fib; CHADS2-VASC score 4 (age, female, HTN) Diastolic dysfunction ESRD on dialysis Nonrheumatic aortic valve stenosis Nonrheumatic mitral valve regurgitation HPI: Juventino Ward is a 77 year old female presents for routine cardiology follow up. Patient was last seen in our office by Dr. Womack for routine follow up on 11/26/22 stable from a cardiac perspective. Her cardiac history dates back to a hopsitalization in Oct 2022 for new onset A-fib with RVR Patient presents today feeling ok from a cardiac perspective. She reports extreme fatigue on her HDdays. Feeling better today. Offers no cardiac questions/concerns, Denies chest pain, pressure, palpitations. No new or worsening shortness of breath. BP at goal. She feels that her medications are well tolerated with no untoward effects. She reports intermittent nausea and shoulder discomfort which GI has explained is secondary to a large hiatal hernia. She states they have told her there is nothing they can do as she is too high of a risk for surgical intervention given her other comorbidities. REVIEW OF SYSTEMS: See HPI for pertinent positives. All others negative other than those noted in the HPI. CONSTITUTIONAL: No change in weight, No weakness, No fatigue and No fevers, No sweats or chills. PULMONARY: No cough, sputum, or hemoptysis, No wheezing, No shortness or breath and No recent change in breathing. CARDIOVASCULAR: No chest pain, No dyspnea on exertion, No edema, No palpitations and No syncope. GASTROINTESTINAL: No abdominal pain, No change in bowel habits, No significant heartburn, No nausea, No vomiting, No diarrhea, No constipation, No blood in stools or black tarry stools. No dysphagia. HEMATOLOGIC: No abnormal bleeding and No bruising. NEUROLOGICAL: Normal balance, No headaches and No weakness. Review of patient's allergies indicates: Allergen Reactions Pollen Current Outpatient Medications Medication Sig Dispense Refill Lidocaine-Prilocaine, Bulk, 2.5-2.5 % CREA Use 1 Dose as directed as needed for Pain. 30 g 6 Triamcinolone Acetonide 0.025 % LOTN Apply topically to affected area 2 times a day. To affected area. 60 mL 5 oxygen GAS 3 LPM bled through CPAP 5 cwp during hours of sleep 1 Each 0 polyethylene glycol 3350 (MIRALAX) 255 gram powder Take 17 g by mouth 2 times a day. Dissolve one heaping tablespoon in 8 ounces of water or juice. 1 Bottle 2 sevelamer carbonate (RENVELA) 800 MG Tablet Take 2 Tablets by mouth in the morning and 2 Tablets atnoon and 2 Tablets in the evening. Take with meals. Lidocaine-Prilocaine 2.5-2.5 % External Cream (Emla) APPLY SMALL AMOUNT TO ACCESS SITE (AVF) 1 TO 2HOURS BEFORE DIALYSIS. COVER WITH OCCLUSIVE DRESSING (SARAN WRAP) Nitroglycerin 0.4 MG Sublingual Tablet Sublingual (Nitrostat) Place under the tongue 1 Tablet as needed for Pain, Chest. May repeat 3 times. If chest pain continues, call 911. 25 Tablet 11 Famotidine 20 MG Oral Tablet (Pepcid) Take 1 Tablet by mouth in the morning and 1 Tablet before bedtime. 180 Tablet 3 Sucralfate 1 GM Oral Tablet Take 1 Tablet by mouth in the morning and 1 Tablet at noon and 1 Tabletin the evening and 1 Tablet before bedtime. Ondansetron HCl 4 MG Oral Tablet (Zofran) Take 1 Tablet by mouth every 8 hours as needed for Nausea. traMADol HCl 50 MG Oral Tablet (Ultram) Take 1 Tablet by mouth daily as needed. ProRenal + D w/ Lamar-3 Oral Capsule Take 1 Tablet by mouth daily. 30 Capsule 0 Metoprolol Succinate ER 50 MG Oral Tablet Extended Release 24 Hour (Toprol XL) One tablet by mouth two times per day. Hold morning dose on dialysis days 180 Tablet 3 Warfarin Sodium 5 MG Oral Tablet (Coumadin) Take 1 Tablet by mouth every evening. Or as directed byanticoagulation clinic 90 Tablet 1 Trelegy Ellipta 100-62.5-25 MCG/ACT Aerosol Powder Breath Activated (Ecjiwgbdyiq-Xjrjelrnwqfc-Jyfwerhcug) Inhale 1 Puff by mouth in the morning. Rinse after. 180 Blister Dosing Unit 1 Atorvastatin Calcium 40 MG Oral Tablet (Lipitor) Take 1 Tablet by mouth in the morning. 90 Tablet 1 Pantoprazole Sodium 40 MG Oral Tablet Delayed Release (Protonix) Take 1 Tablet by mouth in the morning and 1 Tablet before bedtime. 180 Tablet 2 Betaxolol HCl 10 MG Oral Tablet Take by mouth. Fluticasone-Salmeterol 250-50 MCG/ACT Inhalation Aerosol Powder Breath Activated (Advair Diskus) Inhale 1 Puff by mouth in the morning and 1 Puff before bedtime. CPAP every night at bedtime. Warfarin Sodium 2.5 MG Oral Tablet (Coumadin) Take 1 Tablet by mouth every evening. 90 Tablet 0 Warfarin Sodium 1 MG Oral Tablet (Coumadin) Take 1 Tablet by mouth every evening. 90 Tablet 0 Ventolin HFA 108 (90 Base) MCG/ACT Inhalation Aerosol Solution INHALE TWO PUFFS EVERY 6 HOURS NEEDED FOR WHEEZING 54 g 1 Montelukast Sodium 10 MG Oral Tablet (Singulair) Take 1 Tablet by mouth at bedtime. 90 Tablet 1 Fluticasone Propionate 50 MCG/ACT Nasal Suspension (Flonase) Administer 2 Sprays into each nostril in the morning. 48 g 1 Isosorbide Mononitrate ER 60 MG Oral Tablet Extended Release 24 Hour (Imdur) Take 1 Tablet by mouthin the morning. (Patient not taking: Reported on 05/04/2023) amLODIPine Besylate 5 MG Oral Tablet (Norvasc) Take 1 Tablet by mouth in the morning. (Patient not taking: Reported on 05/04/2023) No current facility-administered medications for this visit. Past Medical History: Diagnosis Date Diabetic eye exam (HCC) 07/07/2013 Pulmonary arterial hypertension (HCC) Shingles 06/2016 Sleep apnea, obstructive Family History Problem Relation Age of Onset Hypertension Father Diabetes Father Hypertension Mother Hypertension Sister Hypertension Sister Diabetes Brother dka Diabetes Brother hypertension Diabetes Sister Diabetes Sister Breast Cancer Daughter Breast Cancer Daughter Hypertension Daughter Hypertension Daughter Social History Socioeconomic History Marital status: Tobacco Use Smoking status: Never Smokeless tobacco: Never Vaping Use Vaping Use: Never used Substance and Sexual Activity Alcohol use: No Drug use: No Social History Narrative Homemaker Social Determinants of Health Food Insecurity: No Food Insecurity (03/13/2022) Hunger Vital Sign Worried About Running Out of Food in the Last Year: Never true Ran Out of Food in the Last Year: Never true OBJECTIVE/PHYSICAL EXAMINATION: BP 132/62 | Pulse 80 | Resp 14 | Wt 64.9 kg (143 lb) | BMI 27.71 kg/m | BSA 1.66 m General: No acute distress. A+Ox3. HEENT: Normocephalic. Atraumatic. PERRL. EOMI. Conjunctiva and sclera clear. NECK: No carotid bruits. No JVD. Carotid upstrokes are brisk. Heart: RRR. S1 and S2 noted. No murmur. No rubs or gallops. PMI non displaced. Lungs: Clear to auscultation. No wheezes.No rhonchi. No rales. Abdomen: Normal bowel sounds. Soft. Nontender. No masses or organomegaly. No abdominal bruits. Extremities: No edema. No clubbing or cyanosis. Pulses: radial=2/4, posterior tibial=2/4, dorsalis pedis = 2/4. NEURO: No focal deficits. PSYCH: Appropriate affect and insight. DATA Labs & Imaging Reviewed Below: Echocardiogram 04/22/23: The examination is adequate to evaluate the referral indication. There was normal sinus rhythm during the examination. The LV wall thickness is moderately increased (concentric). The qualitative LV ejection fraction is 55-59% (normal). The left atrium is severely enlarged. The left ventricular diastolic function is moderately abnormal (grade II). The aortic valve is mildly calcified. Ovvt-vt-sitbprop aortic valve stenosis is present with peak continuous-wave Doppler velocity of 3.1meters/second, mean gradient 17 mm Hg. Mild aortic valve regurgitation is present. Mild mitral regurgitation is present. There is moderate mitral annular calcification. Mild tricuspid regurgitation is present. Compared to the previous study dated 08/04/2022, there has been a subtle progression in the severity of the aortic stenosis. Summary of dobutamine stress echocardiogram performed 07/25/2022: The stress echo is negative for inducible ischemia. Resting Study: The qualitative LV ejection fraction is 55-59% (normal). The LV wall thickness is mildly increased (concentric). The left atrium is severely enlarged. The left ventricular diastolic function is moderately abnormal (grade II). Mild aortic valve stenosis is present. Mild aortic valve regurgitation is present. Mild mitral regurgitation is present. Mild tricuspid regurgitation is present. The estimated pulmonary artery systolic pressure is 43mm Hg. Compared to prior study of 04/09/2022, there is no significant change. ASSESSMENT/PLAN: 77 year old year old female 1. Paroxysmal atrial fibrillation (HCC) -Asymptomatic. -tolerating toprol xl and Wafarin as per current regimen 2. Nonrheumatic aortic valve stenosis 3. Nonrheumatic mitral valve regurgitation -Recent echocardiogram demonstrates stable disease, no progression, no changes in functional capacity. -Repeat echo in 1 year for surveillance 4. ESRD on dialysis (HCC) -MWF, as per management of Nephrology 5. Dyslipidemia, goal LDL below 100 -Continues on Atorvastatin with no ill effect DISPOSITION: Follow up 6 months or if symptoms worsen/fail to improve. All questions were answered to the patients satisfaction. Patient advised to report to ED with any and all emergencies. The patient agrees to the above plan and will call with additional questions or concerns. [facility], [address] [address] I spent a total of 30 minutes on the date of service in preparation, delivery, and documentation ofthe care provided to Juventino Ward excluding any time spent in the performance of separately billed services. This chart was completed in part utilizing [employer] Voice Recognition Software. Grammatical errors, random word insertions, pronoun errors, and incomplete sentences are an occasional consequence of this system due to software limitations, ambient noise, and hardware issues. Any formal questions or concerns about the content, text, or information contained within the body of this dictation should be directly addressed to the provider for clarification. documented in this encounter Nursing Notes * Sylwia Hansen LPN - 05/04/2023 1:29 PM EDT Examination Room: 2 Name: Juventino Ward Date of : 1945 Reason for Visit: Follow up Problems/Concerns: Some SOB Interim Hosp(s): 10/2022 Knee surgery + 2 additional visits d/t "heavy heart" Chest Pain/SOB: denies MyChart Discussed: DECLINES Patient was instructed to not get up on the exam table until directed and assisted by their provider; patient is to remain seated in the chair/ wheelchair/ exam table for fall prevention and safety reasons. Patient is aware staff will assist stepping down off exam table with personnel. documented in this encounter Plan of Treatment Upcoming Encounters Date Type Department Care Team (Late st Contact Info) Description 05/06/2023 6:30 AM EDT Anticoagulation Pharmacy Call Center WB [address] [place] [address] [facility] [address] 05/20/2023 1:20 PM EDT Office Visit Family Practice [facility] [address] [facility] [place] [address] Akiko Rae MD [address] [facility] [place] [address] 05/26/2023 8:00 AM EDT PulmDiagnostic Pulmonary Function Lab, [facility] [place] [address] [address], Pft [address] [facility] [place] [address] 05/26/2023 8:40 AM EDT Telemedicine Pulmonary Medicine, [place] [address] [place] [address] Jesus Dougherty MD [address], [place] [id number] Cart, Telemed Pulm Gw [address] [facility] [place] [address] 07/06/2023 12:00 PM EDT Office Visit Gastroenterology, [facility] [address] [place] [address] Caroline Inman CRNP [address] [place] [address] 12/07/2023 8:30 AM EDT Office Visit Cardiology, [facility] [address] [place] [address] Vivi Vera CRNP [address] [place] [address] Health Maintenance Due Date Last Done Comments [...] Not on filedocumented as of this encounter Visit Diagnoses Diagnosis Paroxysmal atrial fibrillation (HCC)- Primary Atrial fibrillation Nonrheumatic aortic valve stenosis Aortic valve disorders Nonrheumatic mitral valve regurgitation ESRD on dialysis (HCC) End stage renal disease Dyslipidemia, goal LDL below 100 Other and unspecified hyperlipidemia documented in this encounter Care Teams Adjunct Professor Of Voice Relationship Specialty Start Date End Date Alberto Yuen III, MD [address] [facility] [place] [address] PCP - General Family Medicine 04/20/13 documented as of this encounter
--- OUTSIDE RECORDS SUMMARY | 2023-05-16 13:10 | External Medical Summary | Summary of Care ---
Author Name Unknown Organization [facility] Address [address] [place] [address] Phone [phone] Care Team Providers Care Hoisting Machine Operator Name Role Phone Alpa CHAMBERLAIN MD, Alberto Milan Primary Care Provider [phone] Reason for Visit * Reason Onset Date Comments Other 05/07/2023 Encounter Details Date Type Department Care Team (Late st Contact Info) Description 05/07/2023 Telephone Pharmacy Call Center [address] [place] [address] [facility] [address] [place] [address] Other Allergies Active Allergy Reactions Criticality Noted Date Comments Pollen 06/24/2016 documented as of this encounter (statuses as of 05/07/2023) Medications Medication Sig Dispensed Refills Start Date [...] needed. 0 Active ProRenal + D w/ Lamont-3 Oral Capsule Take 1 Tablet by mouth [...] as of this encounter (statuses as of 05/07/2023) Active Problems Problem Noted Date Diagnosed Date [...] as of this encounter (statuses as of 05/07/2023) Resolved Problems Problem Noted Date Diagnosed Date [...] as of this encounter (statuses as of 05/07/2023) Immunizations Name Administration Dates Next Due COVID-19 mRNA, LNP-s, No Pre serve, 2-Dose Series ([employer]) 06/03/2021,02/22/2021,12/07/2020,10/23,04/18/2020,03/28/2020 COVID-19, MRNA-LNP, 23-24, P F, 30 [...] on file documented as of this encounter Miscellaneous Notes * Telephone Encounter - [place] Hebert [facility] - 05/07/2023 4:29 PM EDT Called [facility] to request order form to update the testing frequency to up to once a week. [place] He[place], PharmD, BCACP, [facility] Clinical Pharmacist 05/07/2023, 4:29 PM * Telephone Encounter - Jamila Low [facility] - 05/07/2023 4:10 PM EDT Pt scheduled for OFS on 05/09 Jamila Low Rp, Pharm.D. Clinical Pharmacist [facility] (formerly Telepharmacy) [phone] 05/07/2023,4:11 PM * Telephone Encounter - Oswald Ny [employer]erg[employer] boat [employer] - 05/07/2023 1:57 PM EDT Pt daughter calling again on same issue, says timing for has changed. * Telephone Encounter - Kady Espino fiberglass boat builder - 05/07/2023 1:08 PM EDT Caller's name: ghulam Griffith call back number(OFFICE NUMBER FOR ): [phone] Reason for call: pt dtr calling in unable to get strips form [facility], asking if they can get at local [facility] Thank you, Kady Espino Printer Maintainer [facility] ([facility]) (Formerly Telepharmacy) 05/07/2023,1:18 PM documented in this encounter Plan of Treatment Upcoming Encounters Date Type Department Care Team (Late st Contact Info) Description 05/10/2023 9:10 AM EDT [facility] [place] [address] [place] [address] Pharmacist2, [facility] [address] [place] [address] 05/20/2023 1:20 PM EDT Office Visit [facility] [address] [place] [address] Akiko Rae MD [address] [place] [address] 05/26/2023 8:00 AM EDT PulmDiagnostic Pulmonary Function Lab, [facility] [address] [facility] [place] [address] [place], [address] [facility] [place] [address] 05/26/2023 8:40 AM EDT Telemedicine Pulmonary Medicine, [place] [address] [place] [address] Jesus Dougherty MD [address] [place] [address] Cart, Telemed Pulm Gw [facility] [place] [address] 07/06/2023 12:00 PM EDT Office Visit Gastroenterology, [facility] [address] [facility] [place] [address] Caroline Inman CRNP [address] [facility] [place] [address] 12/07/2023 8:30 AM EDT Office Visit Cardiology, [facility] [address] [facility] [place] [address] Vivi Vera CRNP [address] [facility] [place] [address] Health Maintenance Due Date Last Done Comments [...] Not on filedocumented as of this encounter Care Teams Hoisting Machine Operator Relationship Specialty Start Date End Date Alberto Yuen III, MD [address] [place] [address] PCP - General Family Medicine 04/20/13 documented as of this encounter
--- OUTSIDE RECORDS SUMMARY | 2023-05-16 13:10 | External Medical Summary | Summary of Care ---
Author Name Unknown Organization [facility] Address [address] [place] [address] Phone [phone] Care Team Providers Care Chief Console Operator Name Role Phone Alpa CHAMBERLAIN MD, Alberto Milan Primary Care Provider [phone] Reason for Visit * Reason Comments Dosage Adjustment Via Phone (anticoag Cl inic) Encounter Details Date Type Department Care Team (Latest Contact Info) Description 04/29/2023 6:30 AM EST Anticoagulation Pharmacy Call Center [address] [place] [address] [facility] 58 [address] [place] [address] Persistent atrial fibrillation (HCC)* Allergies Active Allergy Reactions Criticality Noted Date Comments Pollen 06/24/2016 documented as of this encounter (statuses as of 04/29/2023) Medications Medication Sig Dispensed Refills Start Date [...] call 911. 25 Tablet 11 10/07/2021 Active Additional Information Patient not taking.Reported on 11/26/2022 Famotidine 20 MG Oral Tablet (Pepcid) Take [...] needed. 0 Active ProRenal + D w/ [place]-3 Oral Capsule Take 1 Tablet by mouth [...] Oral Tablet Take by mouth. 0 Active amLODIPine Besylate 5 MG Oral Tablet (Norvasc) Take 1 Tablet by mouth in the morning. 0 Active Fluticasone-Salme terol 250-50 MCG/ACT Inhalation [...] as of this encounter (statuses as of 04/29/2023) Active Problems Problem Noted Date Diagnosed Date [...] as of this encounter (statuses as of 04/29/2023) Resolved Problems Problem Noted Date Diagnosed Date [...] as of this encounter (statuses as of 04/29/2023) Immunizations Name Administration Dates Next Due COVID-19 mRNA, LNP-s, No Pre serve, 2-Dose Series ([employer]) 06/03/2021,02/22/2021,12/07/2020,10/23,04/18/2020,03/28/2020 COVID-19, MRNA-LNP, 23-24, P F, 30 [...] as of this encounter Progress Notes * Trang Escobedo, online banking specialist - 04/29/2023 11:22 AM EST Contacts Type Contact Phone/Fax 04/29/2023 11:14 AM EST Phone (Outgoing) ghulam pak (Emergency Contact) [phone] Subjective Patient Findings Negatives: Signs/symptoms of bleeding, Change in health, Change in activity, Upcoming invasive procedure, Missed doses, Extra doses, Change in medications, Change in diet/appetite, Bruising Advised patient to contact Anticoagulation Clinic if any unusual bruising or bleeding, recent illness, changes in medication, or questions/concerns. PT/INR results, Coumadin dose instructions, and next PT/INR date communicated as noted by Pharmacist: Yes RACHID PEREZ 04/29/2023, 11:22 AM * Jamila Low RPh - 04/29/2023 9:36 AM EST Coumadin Clinic (region specific) Objective Current Warfarin Dose As of 04/29/2023 Warfarin maintenance plan: 7.5 mg (5 mg x 1.5) every Wed; 5 mg (5 mg x 1) all other days INR Result As of 04/29/2023 INR goal: 2.0-3.0 INR used for dosin.5 (04/28/2023) Assessment & Plan Warfarin Plan As of 04/29/2023 Full warfarin instructions: 7.5 mg every Wed; 5 mg all other days No change documented: Jamila Low RPh Next INR check: 05/05/2023 Repeat PT/INR in 1 week(s) Weekly dose: not changed Additional Dosing Information: Description [employer] Home machine - 1 wk check per pt request Has 1 mg, 2.5 mg, and 5 mg Patient receives hemodialysis MWF. 05/06/23 & 05/13/23- laser eye surgery. No hold needed Tech to contact patient with dose instructions as noted. Jamila Low RPh 04/29/2023, 9:36 AM * Sonya Maya PHARM Tech - 04/29/2023 8:20 AM EST Patient Phone Numbers Spoke with Ghulam and obtained INR result for patient from yesterday, 04/28/23. INR = 2.5 Thank you, Sonya Maya Metal Framer [facility] ([facility]) 04/29/2023,8:20 AM documented in this encounter Plan of Treatment Upcoming Encounters Date Type Department Care Team (Late st Contact Info) Description 05/04/2023 1:30 PM EDT Office Visit Cardiology, [facility] [address] [place] [address] Vivi Vera CRNP 132 [facility] [place] [address] 05/06/2023 6:30 AM EDT [facility] Pharm[facility] Call Center 58[address]60 [facility] [place] [address] [facility] 58 60 [facility] [place] [address] 05/20/2023 1:20 PM EDT Office Visit Family Practice [facility] [address] [facility] [place] [address] Akiko Rae MD [address] [facility] [place] [address] 05/26/2023 8:00 AM EDT PulmDiagnostic Pulmonary Function Lab, [facility] [address] [place] [address] West, Pft 132 [facility] [place] [address] 05/26/2023 8:40 AM EDT Telemedicine Pulmonary Medicine, [place] [address], [place] [id number] Jesus Dougherty MD [address], [place] [id number] Cart, Telemed Pulm Gw [address] [place] [address] 07/06/2023 12:00 PM EDT Office Visit Gastroenterology, [facility] [address] [place] [address] Caroline Inman CRNP [address] [place] [address] Health Maintenance Due Date Last Done Comments [...] Date/Time Associated Diagnosis Comments OUTSIDE LAB-PT/INR Routine 04/28/2023 documented in this encounter Results * OUTSIDE LAB-PT/INR (04/28/2023) INR-OUTSIDE LAB 2.5 History Per Patient LABORATORY documented in this encounter Visit Diagnoses Diagnosis Persistent atrial fibrillation (HCC)- Primary Atrial fibrillation documented in this encounter Care Teams Chief Console Operator Relationship Specialty Start Date End Date Alberto Yuen III, MD [address] [place] [address] PCP - General Family Medicine 04/20/13 documented as of this encounter
--- OUTSIDE RECORDS SUMMARY | 2023-05-16 13:10 | External Medical Summary | Summary of Care ---
Author Name Unknown Organization [facility] Address [address] [place] [place] [address] Phone [phone] Care Team Providers Care Competitive Athlete Name Role Phone Alpa CHAMBERLAIN MD, Alberto Milan Primary Care Provider [phone] Encounter Details Date Type Department Care Team (Late st Contact Info) Description 04/28/2023 Result Scan Unspecified Department Jamila Low, [facility] [address] [facility] [address] <No scans attached> Allergies Active Allergy Reactions Criticality Noted Date Comments Pollen 06/24/2016 documented as of this encounter (statuses as of 04/30/2023) Medications Medication Sig Dispensed Refills Start Date [...] needed. 0 Active ProRenal + D w/ [place]-3 Oral Capsule Take 1 Tablet by mouth [...] as of this encounter (statuses as of 04/30/2023) Active Problems Problem Noted Date Diagnosed Date [...] as of this encounter (statuses as of 04/30/2023) Resolved Problems Problem Noted Date Diagnosed Date [...] as of this encounter (statuses as of 04/30/2023) Immunizations Name Administration Dates Next Due COVID-19 mRNA, LNP-s, No Pre serve, 2-Dose Series ([employer]) 06/03/2021,02/22/2021,12/07/2020,10/23,04/18/2020,03/28/2020 COVID-19, MRNA-LNP, 23-24, P F, 30 [...] 05/04/2023 1:30 PM EDT Office Visit Cardiology, [facility] [address] [place] [address] Vivi Vera CRNP [address] [place] [address] 05/06/2023 6:30 AM EDT Anticoagulation Pharmacy Call Center 58[address] [facility] [place] [address] [facility] 58 60 [facility] [place] [address] 05/20/2023 1:20 PM EDT Office Visit Family Practice [facility] 200 [facility] [place] [address] Akiko Rae MD 200 [facility] [place] [address] 05/26/2023 8:00 AM EDT PulmDiagnostic Pulmonary Function Lab, [facility] [address] [facility] [place] [address] West, Pft [address] [facility] [place] [address] 05/26/2023 8:40 AM EDT Telemedicine Pulmonary Medicine, [place] [address] [place] [address] Jesus Dougherty MD [address] [place] [address] Cart, Telemed Pulm Gw [address] [facility] [place] [address] 07/06/2023 12:00 PM EDT Office Visit Gastroenterology, [facility] [address] [place] [address] Caroline Inman CRNP 132 [facility] [place] [address] Health Maintenance Due Date Last Done Comments [...] Date/Time Associated Diagnosis Comments OUTSIDE LAB RESULTS 04/28/2023 documented in this encounter Results * OUTSIDE LAB RESULTS (04/28/2023) 04/28/2023 Jamila Low [facility] LABORATORY documented in this encounter Care Teams Competitive Athlete Relationship Specialty Start Date End Date Alberto Yuen III, MD 200 [facility] [place] [address] PCP - General Family Medicine 04/20/13 documented as of this encounter
--- OUTSIDE RECORDS SUMMARY | 2023-05-16 13:10 | External Medical Summary | Summary of Care ---
Author Name Unknown Organization [facility] Address [address] [place] [address] Phone [phone] Care Team Providers Care Graffiti Cleaner Name Role Phone Alpa CHAMBERLAIN MD, Alberto Milan Primary Care Provider [phone] Encounter Details Date Type Department Care Team (Late st Contact Info) Description 04/16/2023 Orders Only Radiology, [facility] [address] [place], [place] [phone] Requisition, External Radiology [address] [place] [address] Encounter for pre-transplant evaluation for kidney transplant* Allergies Active Allergy Reactions Criticality Noted Date Comments Pollen 06/24/2016 documented as of this encounter (statuses as of 04/16/2023) Medications Medication Sig Dispensed Refills Start Date [...] needed. 0 Active ProRenal + D w/ [place]-3 Oral Capsule Take 1 Tablet by mouth [...] as of this encounter (statuses as of 04/16/2023) Active Problems Problem Noted Date Diagnosed Date [...] as of this encounter (statuses as of 04/16/2023) Resolved Problems Problem Noted Date Diagnosed Date [...] as of this encounter (statuses as of 04/16/2023) Immunizations Name Administration Dates Next Due COVID-19 mRNA, LNP-s, No Pre serve, 2-Dose Series ([employer]) 06/03/2021,02/22/2021,12/07/2020,10/23,04/18/2020,03/28/2020 COVID-19, MRNA-LNP, 23-24, P F, 30 [...] Care Team (Late st Contact Info) Description 04/20/2023 6:30 AM EST Anticoagulation Pharmacy Call Center WB [address]60 [facility] [place] [address] Ccps, [facility] 58 60 [facility] [place] [address] 04/22/2023 9:30 AM EST Cardiac Studies Cardiac Studies, [address] [place] [address] 04/27/2023 11:45 AM EST Imaging Radiology [facility] 1st [facility] [address] [place] [address] 04/29/2023 12:00 PM EST Telemedicine Pulmonary Medicine, [place] [address] [place] [address] Jesus Dougherty MD [address] [place] [address] Cart, Telemed Pulm Gw 132 [facility] [place] [address] 05/04/2023 1:30 PM EDT Office Visit Cardiology, [facility] 132 [facility] [place] [address] Vivi Vera CRNP 132 [facility] [place] [address] 07/06/2023 12:00 PM EDT Office Visit Gastroenterology, [facility] 132 [facility] [place] [address] Caroline Inman CRNP 132 [facility] [place] [address] 07/06/2023 2:00 PM EDT Office Visit Family Practice [facility] 200 [facility] [place] [address] Akiko Rae MD 200 [facility] [place] [address] Scheduled Orders Name Type Priority Associated Diagnoses Orde r Schedule PULMONARY STRESS TESTING Procedures Routine Encounter for pre-transplant evaluation for kidney transplant Ordered: 04/16/2023 Health Maintenance Due Date Last Done Comments [...] as of this encounter Visit Diagnoses Diagnosis Encounter for pre-transplant evaluation for kidney transplant- Primary documented in this encounter Care Teams Graffiti Cleaner Relationship Specialty Start Date End Date Alberto Yuen III, MD [address] [place] [address] PCP - General Family Medicine 04/20/13 documented as of this encounter
--- OUTSIDE RECORDS SUMMARY | 2023-05-16 13:10 | External Medical Summary | Summary of Care ---
Author Name Unknown Organization [facility] Address [address] [place] [address] Phone [phone] Care Team Providers Care Naval Aircrewman Name Role Phone Alpa CHAMBERLAIN MD, Alberto Milan Primary Care Provider [phone] Reason for Visit * Reason Onset Date Comments Returning Call 05/10/2023 Encounter Details Date Type Department Care Team (Late st Contact Info) Description 05/10/2023 Telephone Pharmacy Call Center [address] [place] [address] [facility] 58 [address] [place] [address] Returning Call Allergies Active Allergy Reactions Criticality Noted Date Comments Pollen 06/24/2016 documented as of this encounter (statuses as of 05/10/2023) Medications Medication Sig Dispensed Refills Start Date [...] needed. 0 Active ProRenal + D w/ [place]-3 Oral Capsule Take 1 Tablet by mouth [...] as of this encounter (statuses as of 05/10/2023) Active Problems Problem Noted Date Diagnosed Date [...] as of this encounter (statuses as of 05/10/2023) Resolved Problems Problem Noted Date Diagnosed Date [...] as of this encounter (statuses as of 05/10/2023) Immunizations Name Administration Dates Next Due COVID-19 mRNA, LNP-s, No Pre serve, 2-Dose Series ([employer]) 06/03/2021,02/22/2021,12/07/2020,10/23,04/18/2020,03/28/2020 COVID-19, MRNA-LNP, 23-24, P F, 30 [...] encounter Miscellaneous Notes * Telephone Encounter - Jamila Low RPh - 05/10/2023 4:20 PM EDT Noted, thank you. Jamila Low Rph, Pharm.D. Clinical Pharmacist [facility] ([facility]) (formerly Telepharmacy) [phone] 05/10/2023,4:20 PM * Telephone Encounter - Bernarda Cristina PHARM Tech - 05/10/2023 9:35 AM EDT Caller's name: Xochitl Preferred call back number(OFFICE NUMBER FOR ): [phone] opt#2 Reason for call: Xochitl calling Tyrese in regards to his message, she couldn't get the full name of the pt but I had the pt earlier on a call so I knew who it was. Xochitl is letting Tyrese know insurancecovers up to 52 strips so the pt should be okay for testing. Please advise and return her call if needed. Thank you, Bernarda Cristina Color Control Operator [facility] 05/10/2023,9:37 AM documented in this encounter Plan of Treatment Upcoming Encounters Date Type Department Care Team (Late st Contact Info) Description 05/11/2023 6:30 AM EDT Anticoagulation Pharmacy Call Center [address] [place] [address] [facility] 58 [address] [place] [address] 05/20/2023 1:20 PM EDT Office Visit Family Practice [facility] 200 [place] [address] Akiko Rae MD 200 [place] [address] 05/26/2023 8:00 AM EDT PulmDiagnostic Pulmonary Function Lab, [facility] 132 [facility] [place] [address] West, Pft 132 [facility] [place] [address] 05/26/2023 8:40 AM EDT Telemedicine Pulmonary Medicine, [place] [address] [place] [address] Jesus Dougherty MD [facility] [place] [address] Cart, Telemed Pulm Gw [address] [place] [address] 07/06/2023 12:00 PM EDT Office Visit Gastroenterology, [facility] [address] [place] [address] Caroline Inman CRNP [address] [place] [address] 12/07/2023 8:30 AM EDT Office Visit Cardiology, [facility] [address] [place] [address] Vivi Vera CRNP [address] [place] [address] Health Maintenance Due Date Last Done Comments [...] filedocumented as of this encounter Care Teams Naval Aircrewman Relationship Specialty Start Date End Date Alberto Yuen III, MD 200 [place] [address] PCP - General Family Medicine 04/20/13 documented as of this encounter
--- OUTSIDE RECORDS SUMMARY | 2023-05-16 13:10 | External Medical Summary | Summary of Care ---
Author Name Unknown Organization [facility] Address [address] [facility] [place] [address] Phone [phone] Care Team Providers Care Hide Washer Name Role Phone Alpa CHAMBERLAIN MD, Alberto Milan Primary Care Provider [phone] Encounter Details Date Type Department Care Team (Late st Contact Info) Description 04/19/2023 Result Scan Unspecified Department Jamila Low, [facility] [address] [facility] [address] <No scans attached> Allergies Active Allergy Reactions Criticality Noted Date Comments Pollen 06/24/2016 documented as of this encounter (statuses as of 04/20/2023) Medications Medication Sig Dispensed Refills Start Date [...] needed. 0 Active ProRenal + D w/ [place]-3 Oral Capsule Take 1 Tablet by mouth [...] as of this encounter (statuses as of 04/20/2023) Active Problems Problem Noted Date Diagnosed Date [...] as of this encounter (statuses as of 04/20/2023) Resolved Problems Problem Noted Date Diagnosed Date [...] as of this encounter (statuses as of 04/20/2023) Immunizations Name Administration Dates Next Due COVID-19 mRNA, LNP-s, No Pre serve, 2-Dose Series ([employer]) 06/03/2021,02/22/2021,12/07/2020,10/23,04/18/2020,03/28/2020 COVID-19, MRNA-LNP, 23-24, P F, 30 [...] Care Team (Late st Contact Info) Description 04/22/2023 9:30 AM EST Cardiac Studies Cardiac Studies, [facility] 132 [facility] [place] [address] 04/27/2023 6:30 AM EST Anticoagulation Pharmacy Call Center WB [address] [place] [address] Ccps, [facility] 58 60 [facility] [place] [address] 04/27/2023 11:45 AM EST Imaging Radiology [facility] 1st [facility] 132 [facility] [place] [address] 04/29/2023 12:00 PM EST Telemedicine Pulmonary Medicine, [place] [address] [place] [address] Jessu Dougherty MD [address] [place] [address] Cart, Telemed Pulm Gw 132 [facility] [place] [address] 05/04/2023 1:30 PM EDT Office Visit Cardiology, [facility] 132 [facility] [place] [address] Vivi Vera CRNP 132 [facility] [place] [address] 05/20/2023 11:30 AM EDT PulmDiagnostic Pulmonary Function Lab, [facility] 132 [facility] [place] [address] West, Pft 132 [facility] [place] [address] 05/20/2023 1:20 PM EDT Office Visit Family Practice [facility] 200 [facility] [place], [place] [address] Akiko Rae MD 200 [facility] [place] [address] 07/06/2023 12:00 PM EDT Office Visit Gastroenterology, [facility] 132 [facility] [place] [address] Caroline Inman CRNP [address] [place] [address] Health Maintenance Due Date Last Done Comments [...] Date/Time Associated Diagnosis Comments OUTSIDE LAB RESULTS 04/19/2023 documented in this encounter Results * OUTSIDE LAB RESULTS (04/19/2023) 04/19/2023 Jamila Low [facility] LABORATORY documented in this encounter Care Teams Hide Washer Relationship Specialty Start Date End Date Alberto Yuen III, MD 200 [facility] [place], [place] [address] PCP - General Family Medicine 04/20/13 documented as of this encounter
--- OUTSIDE RECORDS SUMMARY | 2023-05-16 13:10 | External Medical Summary | Summary of Care ---
Author Name Unknown Organization [facility] Address [address] [place] [address] Phone [phone] Care Team Providers Care Sales And In Home Delivery Specialist Name Role Phone Alpa CHAMBERLAIN MD, Lilian Milan Primary Care Provider [phone] Reason for Visit * Reason Onset Date Comments Medication Refill 04/02/2023 Encounter Details Date Type Department Care Team (Late st Contact Info) Description 04/02/2023 Refill Family Practice [facility] [place] [address] [facility] [place] [address] Lilian Iglesias III, MD [facility] [address] Allergies Active Allergy Reactions Criticality Noted Date Comments Pollen 06/24/2016 documented as of this encounter (statuses as of 04/02/2023) Medications Medication Sig Dispensed Refills Start Date [...] call 911. 25 Tablet 11 2 Active Additional Information Patient not taking.Reported on [...] needed. 0 Active ProRenal + D w/ [place]-3 Oral Capsule Take 1 Tablet by mouth [...] by mouth in the morning. 0 Active Fluticasone-Salm eterol 250-50 MCG/ACT Inhalation [...] the morning. 48 g 1 4 Active Montelukast Sodium 10 MG Oral Tablet (Singulair) Take by mouth 1 Tablet before bedtime. 90 Tablet 3 2 04/02/19 24 Discontinu ed(Refill) Fluticasone Propionate 50 MCG/ACT Nasal Suspension (Flonase) Administer into each nostril 2 Sprays in the morning. 48 g 3 2 04/02/19 24 Discontinu ed(Refill) documented as of this encounter (statuses as of 04/02/2023) Active Problems Problem Noted Date Diagnosed Date [...] as of this encounter (statuses as of 04/02/2023) Resolved Problems Problem Noted Date Diagnosed Date [...] as of this encounter (statuses as of 04/02/2023) Immunizations Name Administration Dates Next Due COVID-19 mRNA, LNP-s, No Pre serve, 2-Dose Series (Equipboard) 06/03/2021,02/22/2021,12/07/2020,10/23,04/18/2020,03/28/2020 COVID-19, MRNA-LNP, 23-24, P F, 30 [...] encounter Miscellaneous Notes * Telephone Encounter - [facility]id [facility] - 04/02/2023 12:32 PM EST Signed Prescriptions: Disp Refills Montelukast Sodium 10 MG Oral Tablet (Sing*90 Tab*1 Sig: Take 1 Tablet by mouth at bedtime. Authorizing Provider: LILIAN IGLESIAS III Ordering User: BISHOP SHAHID Fluticasone Propionate 50 MCG/ACT Nasal Mcknight*48 g 1 Sig: Administer 2 Sprays into each nostril in the morning. Authorizing Provider: LILIAN IGLESIAS III Ordering User: BISHOP MILES * Telephone Encounter - Parvin Mattson, be2 - 04/02/2023 12:25 PM EST Pt is out of rx. Did you pend patient's preferred pharmacy and medication before forwarding?yes Pharmacy: [id number] [id number] [place] [address] [phone] [place] Pending Prescriptions: Disp Refills Montelukast Sodium 10 MG Oral Tablet (Sin*90 Tab*3 Sig: Take 1 Tablet by mouth at bedtime. Fluticasone Propionate 50 MCG/ACT Nasal S*48 g 3 Sig: Administer 2 Sprays into each nostril in the morning. Last Visit: 01/05/2023 (in office), Visit date not found (telemedicine) Next Visit: 07/06/2023 If no future appointments scheduled, and last appointment is greater than a year ago, please schedule patient for a follow-up appointment Last date the medication was ordered: 10/07/2021 Is this request for a controlled substance?No Urine Drug Screen:No results found for this or any previous visit. Patient Phone Numbers Labs: Lab Results Component Value Date/Time CREAT 5.5 (H) 01/05/2023 02:49 PM CREAT 4.30 (A) 10/23/2022 12:00 AM CREAT 5.1 (H) 04/11/2019 09:51 AM POTASSIUM 4.6 01/05/2023 02:49 PM POTASSIUM 4.5 10/23/2022 12:00 AM POTASSIUM 5.0 04/11/2019 09:51 AM TSH 2.18 01/28/2015 03:57 PM LDLCALC 90 01/05/2023 02:49 PM LDLCALC 87 12/04/2014 12:00 AM LDLCALC 103 06/01/2013 12:01 PM LDLDIRECT 85 07/15/2017 10:28 AM ALT 14 01/05/2023 02:49 PM ALT 17 06/16/2016 12:00 AM ALT 16 06/01/2013 12:01 PM HGBA1C 5.4 01/05/2023 02:49 PM HGBA1C 4.8 04/11/2019 09:51 AM documented in this encounter Plan of Treatment Upcoming Encounters Date Type Department Care Team (Late st Contact Info) Description 04/06/2023 12:00 PM EST Imaging Radiology [address] 132 [facility] [place] [address] 04/09/2023 6:30 AM EST Anticoagulation Pharmacy Call Center WB 58[address]60 [place] [address] [facility] 58 60 [place] [address] 04/22/2023 9:30 AM EST Cardiac Studies Cardiac Studies, [facility] 132 [facility] [place] [address] 04/29/2023 12:00 PM EST Telemedicine Pulmonary Medicine, [place] [address] [place] [address] Jesus Dougherty MD [address] [place] [address] Cart, Telemed Pulm 132 [facility] [place] [address] 05/04/2023 1:30 PM EDT Office Visit Cardiology, [facility] 132 [facility] [place] [address] Vivi Vera CRNP [address] [place] [address] 07/06/2023 12:00 PM EDT Office Visit Gastroenterology, [facility] [address] [place] [address] Caroline Inman CRNP [address] [place] [address] 07/06/2023 2:00 PM EDT Office Visit Family [facility] 200 [place] [address] Akiko Rae MD 200 [place] [address] Health Maintenance Due Date Last Done Comments Hepatitis B (1 of 3 - Risk 3-dose series) 2005 Depression Screening 09/09/2022 09/09/2021 DTaP,Tdap,and Td Vaccines [...] filedocumented as of this encounter Care Teams Sales And In Home Delivery Specialist Relationship Specialty Start Date End Date Lilian Iglesias III, MD 200 [place] [address] PCP - General Family Medicine 04/20/13 documented as of this encounter
--- OUTSIDE RECORDS SUMMARY | 2023-05-16 13:10 | External Medical Summary | Summary of Care ---
Author Name Unknown Organization [facility] Address [address] [place] [address] Phone [phone] Care Team Providers Care Contact Lens Cutter Name Role Phone Alpa CHAMBERLAIN MD, Alberto Milan Primary Care Provider [phone] Reason for Visit * Reason Onset Date Comments FYI 03/08/2023 Encounter Details Date Type Department Care Team (Late st Contact Info) Description 03/08/2023 Line Supervisor Telephone Care Coordination and Integration [address] [place] [address] Jamila Aviles, RN [address] [place], [place] [id number] FYI Allergies Active Allergy Reactions Criticality Noted Date Comments Pollen 06/24/2016 documented as of this encounter (statuses as of 05/06/2023) Medications Medication Sig Dispensed Refills Start Date [...] needed. 0 Active ProRenal + D w/ [place]-3 Oral Capsule Take 1 Tablet by mouth [...] every evening. 90 Tablet 0 03/05/2023 Active documented as of this encounter (statuses as of 05/06/2023) Active Problems Problem Noted Date Diagnosed Date [...] as of this encounter (statuses as of 05/06/2023) Resolved Problems Problem Noted Date Diagnosed Date [...] as of this encounter (statuses as of 05/06/2023) Immunizations Name Administration Dates Next Due COVID-19 mRNA, LNP-s, No Pre serve, 2-Dose Series (ReverbNation) 06/03/2021,02/22/2021,12/07/2020,10/23,04/18/2020,03/28/2020 COVID-19, MRNA-LNP, 23-24, P F, 30 [...] Miscellaneous Notes * Telephone Encounter - Jamila Aviles RN - 03/08/2023 1:37 PM EST Please discharge the patient from [facility] Device(s)/IVR to be discontinued: [facility] scale due to no longer using. Thank you. documented in this encounter Plan of Treatment Upcoming Encounters Date Type Department Care Team (Late st Contact Info) Description 05/13/2023 6:30 AM EDT Anticoagulation Pharmacy Call Center WB 58[address]60 [facility] [place] [address] [facility] 58 60 [facility] [place] [address] 05/20/2023 1:20 PM EDT Office Visit Family Practice [facility] Moura [address] [place] [address] Akiko Rae MD [address] [place] [address] 05/26/2023 8:00 AM EDT PulmDiagnostic Pulmonary Function Lab, [facility] 132 [facility] [place] [address] West, Pft [facility] [place] [address] 05/26/2023 8:40 AM EDT Telemedicine Pulmonary Medicine, [place] [address] [place] [address] Jesus Dougherty MD [address] [place] [address] Cart, Telemed Pulm Gw [facility] [place] [address] 07/06/2023 12:00 PM EDT Office Visit Gastroenterology, [facility] 132 [facility] [place] [address] Caroline Inman CRNP 132 [facility] [place] [address] 12/07/2023 8:30 AM EDT Office Visit Cardiology, [facility] 132 [facility] [place] [address] Vivi Vera CRNP 132 [facility] [place] [address] Health Maintenance Due Date Last Done Comments [...] filedocumented as of this encounter Care Teams Contact Lens Cutter Relationship Specialty Start Date End Date Alberto uYen III, MD 200 [place] [address] PCP - General Family Medicine 04/20/13 documented as of this encounter
--- OUTSIDE RECORDS SUMMARY | 2023-05-16 13:10 | External Medical Summary | Summary of Care ---
Author Name Unknown Organization [facility] Address [address] [place] [address] Phone [phone] Care Team Providers Care Pawn Shop Keeper Name Role Phone Alpa CHAMBERLAIN MD, Alberto Milan Primary Care Provider [phone] Reason for Visit * Reason Comments Dosage Adjustment Via Phone (anticoag Cl inic) Encounter Details Date Type Department Care Team (Latest Contact Info) Description 04/20/2023 6:30 AM EST Anticoagulation Pharmacy Call Center 58[address] [place] [address] [facility] 58 [address] [place] [address] Persistent atrial fibrillation (HCC)* Allergies Active Allergy [...] needed. 0 Active ProRenal + D w/ [place]-3 Oral Capsule Take 1 Tablet by mouth [...] mRNA, LNP-s, No Pre serve, 2-Dose Series (Lumiata) 06/03/2021,02/22/2021,12/07/2020,10/23,04/18/2020,03/28/2020 COVID-19, MRNA-LNP, 23-24, P F, 30 [...] as of this encounter Progress Notes * Henrietta Contreras, [facility] - 04/20/2023 12:04 PM EST Spoke to office at [phone] and confirmed the doctors are aware patient is on Coumadin and there is no bleeding risk for procedure so no hold is required. Thank You Henrietta Contreras, PharmD Clinical Pharmacist [facility] Pharmacy Services (CCPS) (formerly Telepharmacy) [phone] / [phone] 04/20/2023, 12:04 PM * Sonya Maya horticulture worker - 04/20/2023 9:43 AM EST Contacts Type Contact Phone/Fax 04/20/2023 08:16 AM EST Phone (Outgoing) 04/20/2023 09:38 AM EST Phone (Outgoing) Juventino Ward (Self) [phone] (M) spoke to Jenny Subjective Patient Findings Positives: Upcoming invasive procedure (Eye surgeries on 05/05 and 05/12. Being done at [facility] by Dr. Meyer/Dr. Diaz. # [phone]) Negatives: Signs/symptoms of bleeding, Change in health, Change in activity, Missed doses, Extra doses, Change in medications, Change in diet/appetite, Bruising Advised patient to contact Anticoagulation Clinic if any unusual bruising or bleeding, recent illness, changes in medication, or questions/concerns. PT/INR results, Coumadin dose instructions, and next PT/INR date communicated as noted by Pharmacist: Yes RACHID BURGOS 04/20/2023, 9:43 AM * Henrietta Contreras RPh - 04/20/2023 8:18 AM EST Coumadin Clinic (region specific) Objective Current Warfarin Dose As of 04/20/2023 Warfarin maintenance plan: 7.5 mg (5 mg x 1.5) every Wed; 5 mg (5 mg x 1) all other days INR Result As of 04/20/2023 INR goal: 2.0-3.0 INR used for dosin.9 (04/19/2023) Assessment & Plan Warfarin Plan As of 04/20/2023 Full warfarin instructions: 7.5 mg every Wed; 5 mg all other days No change documented: Henrietta Contreras RPh Next INR check: 04/26/2023 Please ask patient if doctor recommended any instructions regarding Coumadin for upcoming laser eyesurgery 05/06/23- please also ask which doctor is doing procedure and phone number if patient has it Repeat PT/INR in 1 week(s) Weekly dose: not changed Additional Dosing Information: Description [employer] Home machine - 1 wk check per pt request Has 1 mg, 2.5 mg, and 5 mg Patient receives hemodialysis MWF. 05/06/23 - laser eye sap pi developer to contact patient with dose instructions as noted. Henrietta Contreras RPh 04/20/2023, 8:18 AM * Cindy Leavitt PHARM Tech - 04/20/2023 8:16 AM EST Patient Phone Numbers Patient calling in yesterday's INR result of 2.9 Thank you, Cindy Leavitt Patient Day Coordinator [facility] Services (CCPS) (Formerly Telepharmacy) 04/20/2023, 8:16 AM documented in this encounter Plan of Treatment Upcoming Encounters Date Type Department Care Team (Late st Contact Info) Description 04/22/2023 9:30 AM EST Cardiac Studies Cardiac Studies, [address] [address] 04/27/2023 6:30 AM EST Anticoagulation Pharmacy Call Center 58-60 [facility] [place] [address] Ccps, [facility] 58 60 [facility] [place] [address] 04/27/2023 11:45 AM EST Imaging Radiology [facility] 1st [address] [place] [address] 04/29/2023 12:00 PM EST Telemedicine Pulmonary Medicine, [place] [address] [place] [address] Jesus Dougherty MD [address] [place] [address] Cart, Telemed Pulm Gw 132 [place] [address] 05/04/2023 1:30 PM EDT Office Visit Cardiology, [facility] 132 [facility] [place] [address] Vivi Vera CRNP [facility] [address] 05/20/2023 11:30 AM EDT PulmDiagnostic Pulmonary Function Lab, [facility] 132 [facility] [place] [address] West, Pft 132 [facility] [address] 05/20/2023 1:20 PM EDT Office Visit Family Practice [facility] 200 [place] [address] Akiko Rae MD [address] [place] [address] 07/06/2023 12:00 PM EDT Office Visit Gastroenterology, [facility] 132 [facility] [place] [address] Caroline Inman CRNP 132 [facility] [place] [address] Health Maintenance Due Date Last Done Comments [...] Date/Time Associated Diagnosis Comments OUTSIDE LAB-PT/INR Routine 04/19/2023 documented in this encounter Results * OUTSIDE LAB-PT/INR (04/19/2023) INR-OUTSIDE LAB 2.9 04/19/2023 History Per Patient LABORATORY documented in this encounter Visit Diagnoses Diagnosis Persistent atrial fibrillation (HCC)- Primary Atrial fibrillation documented in this encounter Care Teams Pawn Shop Keeper Relationship Specialty Start Date End Date Alberto Yuen III, MD 200 [facility] [place] [address] PCP - General Family Medicine 04/20/13 documented as of this encounter
--- OUTSIDE RECORDS SUMMARY | 2023-05-16 13:10 | External Medical Summary | Summary of Care ---
Author Name Unknown Organization [facility] Address [address] [place] [facility] [place] [address] Phone [phone] Care Team Providers Care Geology Teacher Name Role Phone Alpa CHAMBERLAIN MD, Alberto Milan Primary Care Provider [phone] Reason for Visit * Reason Onset Date Comments Test Results 04/26/2023 Encounter Details Date Type Department Care Team (Late st Contact Info) Description 04/26/2023 Telephone Cardiology, [facility] [address] [place] [address] Vivi Vera CRNP [address] [place] [address] Test Results Allergies Active Allergy Reactions Criticality Noted Date Comments Pollen 06/24/2016 documented as of this encounter (statuses as of 04/26/2023) Medications Medication Sig Dispensed Refills Start Date [...] needed. 0 Active ProRenal + D w/ [place]-3 Oral Capsule Take 1 Tablet by mouth [...] as of this encounter (statuses as of 04/26/2023) Active Problems Problem Noted Date Diagnosed Date [...] as of this encounter (statuses as of 04/26/2023) Resolved Problems Problem Noted Date Diagnosed Date [...] as of this encounter (statuses as of 04/26/2023) Immunizations Name Administration Dates Next Due COVID-19 mRNA, LNP-s, No Pre serve, 2-Dose Series (ForeUp) 06/03/2021,02/22/2021,12/07/2020,10/23,04/18/2020,03/28/2020 COVID-19, MRNA-LNP, 23-24, P F, 30 [...] encounter Miscellaneous Notes * Telephone Encounter - Radha Godoy CMA - 04/26/2023 12:01 PM EST My g sent * Telephone Encounter - Radha Godoy CMA - 04/26/2023 12:00 PM EST ----- Message from OSMAR Dwyer sent at 04/23/2023 4:14 PM EST ----- Reviewed in coverage of Dr. Erickson Please notify patient of the following: Echocardiogram showing normal heart pump function. 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 Recommend repeat ultrasound of the heart in one year. documented in this encounter Plan of Treatment Upcoming Encounters Date Type Department Care Team (Late st Contact Info) Description 04/27/2023 6:30 AM EST Anticoagulation Pharmacy Call Center 58-60 [facility] [place] [address] [facility], [facility] 58 60 [facility] [place] [address] 04/27/2023 11:45 AM EST Imaging Radiology [facility] 1st [facility] 132 [facility] [place] [address] 04/29/2023 12:00 PM EST Telemedicine Pulmonary Medicine, [place] [address] [place] [address] Jesus Dougherty MD [address] [place] [address] [facility] 132 [facility] [place] [address] 05/04/2023 1:30 PM EDT Office Visit Cardiology, [facility] 132 [facility] [place] [address] Vivi Vera CRNP 132 [facility] [place] [address] 05/20/2023 11:30 AM EDT PulmDiagnostic Pulmonary Function Lab, [facility] 132 [facility] [place] [address] West, Pft [address] [place] [address] 05/20/2023 1:20 PM EDT Office Visit Family Practice [facility] 200 [facility] [place] [address] Akiko Rae MD 200 [facility] [place] [address] 07/06/2023 12:00 PM EDT Office Visit Gastroenterology, [facility] [address] [place] [address] Caroline Inman CRNP [address] [place] [address] Health Maintenance Due Date Last Done Comments [...] filedocumented as of this encounter Care Teams Geology Teacher Relationship Specialty Start Date End Date lAberto Yuen III, MD 200 [facility] [place] [address] PCP - General Family Medicine 04/20/13 documented as of this encounter
--- OUTSIDE RECORDS SUMMARY | 2023-05-16 13:10 | External Medical Summary | Summary of Care ---
Author Name Unknown Organization [facility] Address [address] [place] [address] Phone [phone] Care Team Providers Care Law Clerk Name Role Phone Alpa CHAMBERLAIN MD, Alberto Milan Primary Care Provider [phone] Reason for Visit * Reason Comments Dosage Adjustment Via Phone (anticoag Cl inic) Encounter Details Date Type Department Care Team (Latest Contact Info) Description 04/09/2023 6:30 AM EST Anticoagulation Pharmacy Call Center [address] [place] [address] [facility] 58 60 [place] [address] Persistent atrial fibrillation (HCC)* Allergies Active Allergy Reactions Criticality Noted Date Comments Pollen 06/24/2016 documented as of this encounter (statuses as of 04/09/2023) Medications Medication Sig Dispensed Refills Start Date [...] needed. 0 Active ProRenal + D w/ [place]-3 Oral Capsule Take 1 Tablet by mouth [...] as of this encounter (statuses as of 04/09/2023) Active Problems Problem Noted Date Diagnosed Date [...] as of this encounter (statuses as of 04/09/2023) Resolved Problems Problem Noted Date Diagnosed Date [...] as of this encounter (statuses as of 04/09/2023) Immunizations Name Administration Dates Next Due COVID-19 mRNA, LNP-s, No Pre serve, 2-Dose Series (viVood) 06/03/2021,02/22/2021,12/07/2020,10/23,04/18/2020,03/28/2020 COVID-19, MRNA-LNP, 23-24, P F, 30 [...] as of this encounter Progress Notes * Kandi Soto, [facility] - 04/09/2023 1:20 PM EST Laser eye procedure noted in ACC tracker -- as pt tests INR weekly, will follow- up with patient next week to check if eye doctor provided any recommendations regarding warfarin for upcoming procedure. Thanks, Kandi Soto, PharmD Clinical Pharmacist Centralized Clinical Pharmacy Services (CCPS) (Formerly Telepharmacy) [phone] 04/09/2023 1:21 PM * Kayla Sanabria RP - 04/09/2023 11:10 AM EST Contacts Type Contact Phone/Fax 04/09/2023 11:09 AM EST Phone (Outgoing) ghulam pak (Emergency Contact) [phone] Subjective Patient Findings Positives: Other complaints (Patient going for laser eye surgery 05-06-23) Negatives: Signs/symptoms of thrombosis, Signs/symptoms of bleeding, [...] date communicated as noted by Pharmacist: Yes Sara Hayes [employer] Counter Assistant Kayla Sanabria [facility] 04/09/2023, 11:10 AM * Kandi Soto [facility] - 04/09/2023 8:10 AM EST Coumadin Clinic (region specific) Objective Current Warfarin Dose As of 04/09/2023 Warfarin maintenance plan: 7.5 mg (5 mg x 1.5) every Wed; 5 mg (5 mg x 1) all other days INR Result As of 04/09/2023 INR goal: 2.0-3.0 INR used for dosin.1 (04/08/2023) Assessment & Plan Warfarin Plan As of 04/09/2023 Full warfarin instructions: 7.5 mg every Wed; 5 mg all other days No change documented: Kandi Soto yeimi Next INR check: 04/15/2023 Repeat PT/INR in 1 week(s) Weekly dose: not changed Additional Dosing Information: Description [employer] Home machine - 1 wk check per pt request Has 1 mg, 2.5 mg, and 5 mg Patient receives hemodialysis MWF. Pt requesting home INR machine. Paperwork is being sent to [email or web address] to contact patient with dose instructions as noted. Kandi Soto [facility] 04/09/2023, 8:10 AM * Sonya Maya PHARM Tech - 04/09/2023 8:09 AM EST Patient Phone Numbers Spoke with patient's daughter and obtained INR result from yesterday, 04/08/23. INR = 2.1 Thank you, Sonya Maya Special Effects Makeup Artist [facility] ([facility]PS) 04/09/2023,8:09 AM documented in this encounter Plan of Treatment Upcoming Encounters Date Type Department Care Team (Late st Contact Info) Description 04/16/2023 6:30 AM EST Anticoagulation Pharmacy Call Center 58[address] [place] [address] [facility], [facility] 58 60 [place] [address] 04/22/2023 9:30 AM EST Cardiac Studies Cardiac Studies, [address] [place] [address] 04/27/2023 11:45 AM EST Imaging Radiology [facility] [address] [place] [address] 04/29/2023 12:00 PM EST Telemedicine Pulmonary Medicine, [place] [address] [place] [address] Jesus Dougherty MD [address] [place] [address] Cart[facility] 132 [facility] [place] [address] 05/04/2023 1:30 PM EDT Office Visit Cardiology, [facility] [address] [place] [address] Vivi Vera CRNP [address] [place] [address] 07/06/2023 12:00 PM EDT Office Visit Gastroenterology, [facility] [address] [place] [address] Caroline Inman CRNP [address] [place] [address] 07/06/2023 2:00 PM EDT Office Visit Family Practice [facility] 200 [facility] [place] [address] Akiko Rae MD 200 [facility] [address] Health Maintenance Due Date Last Done Comments [...] Date/Time Associated Diagnosis Comments OUTSIDE LAB-PT/INR Routine 04/08/2023 documented in this encounter Results * OUTSIDE LAB-PT/INR (04/08/2023) INR-OUTSIDE LAB 2.1 History Per Patient LABORATORY documented in this encounter Visit Diagnoses Diagnosis Persistent atrial fibrillation (HCC)- Primary Atrial fibrillation documented in this encounter Care Teams Law Clerk Relationship Specialty Start Date End Date Alberto Yuen III, MD 200 [place] [address] PCP - General Family Medicine 04/20/13 documented as of this encounter
--- OUTSIDE RECORDS SUMMARY | 2023-05-16 13:10 | External Medical Summary | Summary of Care ---
Author Name Unknown Organization [facility] Address [address] [place] [address] Phone [phone] Care Team Providers Care Diesel Pile Hammer Operator Name Role Phone Alpa CHAMBERLAIN MD, Alberto Milan Primary Care Provider [phone] Reason for Visit * Reason Onset Date Comments Other 05/07/2023 Encounter Details Date Type Department Care Team (Late st Contact Info) Description 05/07/2023 Telephone Pharmacy Call Center [address] [place] [address] [facility] [address] [place] [address] Other Allergies Active Allergy Reactions Criticality Noted [...] needed. 0 Active ProRenal + D w/ [place]-3 Oral Capsule Take 1 Tablet by mouth [...] mRNA, LNP-s, No Pre serve, 2-Dose Series ([email or web address]) 06/03/2021,02/22/2021,12/07/2020,10/23,04/18/2020,03/28/2020 COVID-19, MRNA-LNP, 23-24, P F, 30 [...] Telephone Encounter - Jamila Low RPh - 05/07/2023 4:10 PM EDT Pt scheduled for OFS on 05/09 Jamila Low Rph, Pharm.D. Clinical Pharmacist [facility] ([facility]PS) (formerly Telepharmacy) [phone] 05/07/2023,4:11 PM * Telephone Encounter - Oswald Ny PHARM Tech - 05/07/2023 1:57 PM EDT Pt daughter calling again on same issue, says timing for has changed. * Telephone Encounter - Kady Espino PHARM Tech - 05/07/2023 1:08 PM EDT Caller's name: ghulam Preferred call back number(OFFICE NUMBER FOR ): [phone] Reason for call: pt dtr calling in unable to get strips form [facility], asking if they can get at local [facility] Thank you, Kady Espino Car Retarder Operator [facility] ([facility]PS) (Formerly Telepharmacy) 05/07/2023,1:18 PM documented in this encounter Plan of Treatment Upcoming Encounters Date Type Department Care Team (Late st Contact Info) Description 05/10/2023 9:10 AM EDT Anticoagulation Pharmacy, [facility] [address] [place] [address] Pharmacist2, [facility] [address] [place] [address] 05/20/2023 1:20 PM EDT Office Visit Family Practice [facility] [address] [facility] [place] [address] Akiko Rae MD [address] [facility] [place] [address] 05/26/2023 8:00 AM EDT PulmDiagnostic Pulmonary Function Lab, [facility] [address] [facility] [place] [address] [place], Pft [address] [facility] [place] [address] 05/26/2023 8:40 AM EDT Telemedicine Pulmonary Medicine, [address] [place] [address] Jesus Dougherty MD [address] [place] [address] Shayy Carrasquillo G[address] 132 [place] [address] 07/06/2023 12:00 PM EDT Office Visit Gastroenterology, [facility] [address] [place] [address] Caroline Inman CRNP 132 [facility] [address] 12/07/2023 8:30 AM EDT Office Visit Cardiology, [facility] [address] [place] [address] Vivi Vera CRNP 132 [facility] [address] Health Maintenance Due Date Last Done Comments [...] filedocumented as of this encounter Care Teams Diesel Pile Hammer Operator Relationship Specialty Start Date End Date Alberto Yuen III, MD [address] [place] [address] PCP - General Family Medicine 04/20/13 documented as of this encounter
--- OUTSIDE RECORDS SUMMARY | 2023-05-16 13:11 | External Medical Summary | Summary of Care ---
Author Name Unknown Organization [facility] Address [address] [place] [address] Phone [phone] Care Team Providers Care Exhibit Display Representative Name Role Phone Alpa CHAMBERLAIN MD, Lilian Milan Primary Care Provider [phone] Reason for Visit * Reason Comments eRx-Medication Refill Encounter Details Date Type Department Care Team (Late st Contact Info) Description 04/01/[address] [facility] [address] [facility] [place] [address] Lilian Iglesias III, MD [facility] [address] Asthma, moderate persistent Allergies Active Allergy Reactions Criticality Noted Date Comments Pollen 06/24/2016 documented as of this encounter (statuses as of 04/01/2023) Medications Medication Sig Dispensed Refills Start Date End Date Status Lidocaine-Prilo brionna, Bulk, 2.5-2.5 % CREA Use 1 Dose as directed as needed for Pain. 30 g 6 8 Active Triamcinolone Acetonide 0.025 % LOTNIndications :Itchy scalp Apply topically to affected area 2 times a day. To affected area. 60 mL 5 8 Active oxygen GASIndications: LAUREN (obstructive sleep apnea) 3 LPM bled through [...] evening. Take with meals. 0 9 Active Lidocaine-Prilo brionna 2.5-2.5 % External Cream (Emla) APPLY SMALL AMOUNT TO ACCESS SITE (AVF) 1 TO 2 HOURS BEFORE DIALYSIS. COVER WITH OCCLUSIVE DRESSING (SARAN WRAP) 0 2 Active Nitroglycerin 0.4 MG Sublingual Tablet Sublingual (Nitrostat)Adrianna cations:Angina pectoris (HCC) Place under the tongue 1 Tablet as needed for Pain, Chest. May repeat 3 times. If chest pain continues, call 911. 25 Tablet 11 2 Active Additional Information Patient not taking.Reported on 11/26/2022 Montelukast Sodium 10 MG Oral Tablet (Singulair) Take by mouth 1 Tablet before bedtime. 90 Tablet 3 2 Active Fluticasone Propionate 50 MCG/ACT Nasal Suspension (Flonase) Administer into each nostril 2 Sprays in the morning. 48 g 3 2 Active Famotidine 20 MG Oral Tablet [...] needed. 0 Active ProRenal + D w/ [place]-3 Oral Capsule Take 1 Tablet by mouth [...] Ellipta 100-62.5-25 MCG/ACT Aerosol Powder Breath Activated (Fluticasone-Um eclidinium-Robby nterol) Inhale 1 Puff by mouth in the [...] by mouth in the morning. 0 Active Fluticasone-Adarsh meterol 250-50 MCG/ACT Inhalation Aerosol Powder Breath Activated [...] HFA 108 (90 Base) MCG/ACT Inhalation Aerosol SolutionIndicat ions:Asthma, moderate persistent INHALE TWO PUFFS EVERY 6 HOURS NEEDED FOR WHEEZING 54 g 1 4 Active Ventolin HFA 108 (90 Base) MCG/ACT Inhalation Aerosol SolutionIndicat ions:Asthma, moderate persistent INHALE TWO PUFFS EVERY 6 HOURS NEEDED FOR WHEEZING 54 g 1 3 04/01/19 24 Discontinued documented as of this encounter (statuses as of 04/01/2023) Active Problems Problem Noted Date Diagnosed Date [...] as of this encounter (statuses as of 04/01/2023) Resolved Problems Problem Noted Date Diagnosed Date [...] as of this encounter (statuses as of 04/01/2023) Immunizations Name Administration Dates Next Due COVID-19 mRNA, LNP-s, No Pre serve, 2-Dose Series ([employer]) 06/03/2021,02/22/2021,12/07/2020,10/23,04/18/2020,03/28/2020 COVID-19, MRNA-LNP, 23-24, P F, 30 [...] encounter Miscellaneous Notes * Telephone Encounter - Tiffanie Key, [facility] - 04/01/2023 9:21 PM ESTSigned Prescriptions: Disp Refills Ventolin HFA 108 (90 Base) MCG/ACT Inhalat*54 g 1 Sig: INHALE TWO PUFFS EVERY 6 HOURS NEEDED FOR WHEEZINGAuthorizing Provider: LILIAN IGLESIAS III User: TIFFANIE KEY documented in this encounter Plan of Treatment Upcoming Encounters Date Type Department Care Team (Late st Contact Info) Description 04/02/2023 6:30 AM EST Anticoagulation Pharmacy Call Center [address] [place] [address] [facility], [facility] [address] [place] [address] 04/06/2023 12:00 PM EST Imaging Radiology [facility] 1st [facility] 132 [place] [address] 04/22/2023 9:30 AM EST Cardiac Studies Cardiac Studies, [facility] 132 [place] [address] 04/29/2023 12:00 PM EST Telemedicine Pulmonary Medicine, [place] [address] [place] [address] Jesus Dougherty MD [address] [place], [place] [id number] Cart, [facility] [address] [facility] [place] [address] 05/04/2023 1:30 PM EDT Office Visit Cardiology, [facility] [address] [facility] [place] [address] Vivi Vera CRNP 132 [facility] [place] [address] 07/06/2023 12:00 PM EDT Office Visit Gastroenterology, [facility] [address] [place] [address] Caroline Inman CRNP [address] [place] [address] 07/06/2023 2:00 PM EDT Office Visit Family Practice [facility] [address] [facility] [place] [address] Akiko Rae MD [address] [facility] [place] [address] Health Maintenance Due Date Last Done Comments [...] as of this encounter Visit Diagnoses Diagnosis Asthma, moderate persistent Unspecified asthma documented in this encounter Care Teams Exhibit Display Representative Relationship Specialty Start Date End Date Lilian Iglesias III, MD [address] [place] [address] PCP - General Family Medicine 04/20/13 documented as of this encounter
--- OUTSIDE RECORDS SUMMARY | 2023-05-16 13:11 | External Medical Summary | Summary of Care ---
Author Name Unknown Organization [facility] Address [address] [facility] [address] Phone [phone] Care Team Providers Care Teacher Lip Reading Name Role Phone Alpa CHAMBERLAIN MD, Alberto Milan Primary Care Provider [phone] Encounter Details Date Type Department Care Team (Late st Contact Info) Description 12/31/2022 Telephone Cardiology, [facility] [address] [place] [address] Benigno Womack, [address] [facility] [place] [address] Allergies Active Allergy Reactions Criticality Noted Date Comments Pollen 06/24/2016 documented as of this encounter (statuses as of 04/01/2023) Medications Medication Sig Dispensed Refills Start Date End Date Status Lidocaine-Priloca ine, Bulk, 2.5-2.5 % CREA Use 1 Dose as directed as needed for Pain. 30 g 6 07/16/19 18 Active Triamcinolone Acetonide 0.025 % LOTNIndications:I tchy scalp Apply topically to affected area 2 times a day. To affected area. 60 mL 5 10/20/19 18 Active oxygen GASIndications:OS A (obstructive sleep apnea) 3 LPM bled through CPAP 5 cwp during hours of sleep 1 Each 0 10/29/19 18 Active polyethylene glycol 3350 (MIRALAX) 255 gram powder Take 17 g by mouth 2 times a day. Dissolve one heaping tablespoon in 8 ounces of water or juice. 1 Bottle 2 03/22/19 19 Active sevelamer carbonate (RENVELA) 800 MG Tablet Take 2 Tablets by mouth in the morning and 2 Tablets at noon and 2 Tablets in the evening. Take with meals. 0 06/21/19 19 Active Lidocaine-Priloca ine 2.5-2.5 % External Cream (Emla) APPLY SMALL AMOUNT TO ACCESS SITE (AVF) 1 TO 2 HOURS BEFORE DIALYSIS. COVER WITH OCCLUSIVE DRESSING (SARAN WRAP) 0 09/25/19 22 Active Nitroglycerin 0.4 MG Sublingual Tablet Sublingual (Nitrostat)Indica tions:Angina pectoris (HCC) Place under the tongue 1 Tablet as needed for Pain, Chest. May repeat 3 times. If chest pain continues, call 911. 25 Tablet 11 10/08/19 22 Active Additional Information Patient not taking.Reported on 11/26/2022 Montelukast Sodium 10 MG Oral Tablet (Singulair) Take by mouth 1 Tablet before bedtime. 90 Tablet 3 10/08/19 22 Active Fluticasone Propionate 50 MCG/ACT Nasal Suspension (Flonase) Administer into each nostril 2 Sprays in the morning. 48 g 3 10/08/19 22 Active Ventolin HFA 108 (90 Base) MCG/ACT Inhalation Aerosol SolutionIndicatio ns:Asthma, moderate persistent INHALE TWO PUFFS EVERY 6 HOURS NEEDED FOR WHEEZING 54 g 1 08/22/19 23 Active Famotidine 20 MG Oral Tablet (Pepcid) Take 1 Tablet by mouth in the morning and 1 Tablet before bedtime. 180 Tablet 3 09/02/19 23 Active Sucralfate 1 GM Oral Tablet Take [...] needed. 0 Active ProRenal + D w/ [place]-3 Oral Capsule Take 1 Tablet by mouth daily. 30 Capsule 0 11/06/19 23 Active Metoprolol Succinate ER 50 MG Oral Tablet Extended Release 24 Hour (Toprol XL) One tablet by mouth two times per day. Hold morning dose on dialysis days 180 Tablet 3 11/27/19 23 Active Warfarin Sodium 5 MG Oral Tablet (Coumadin) Take 1 Tablet by mouth every evening. Or as directed by anticoagulation clinic 90 Tablet 1 12/16/19 Active Warfarin Sodium 1 MG Oral Tablet (Coumadin) Take by mouth every evening. 0 11/06/19 23 024 Discontinued(Re fill) Warfarin Sodium 2.5 MG Oral Tablet (Coumadin) Take by mouth every evening. 0 11/06/19 23 024 Discontinued(Re fill) RSVPreF3 Vac Recomb Adjuvanted 120 MCG/0.5ML Intramuscular Suspension Reconstituted Inject 0.5 mL into a large muscle once for 1 dose. 1 Each 0 11/12/19 23 023 Discontinued documented as of this encounter (statuses [...] encounter Miscellaneous Notes * Telephone Encounter - Benigno Womack DO - 01/04/2023 3:38 PM EST Pt should be on metoprolol succinate 50 mg BID on non dialysis days with no dose in am on dialysis days. She should be on 50 mg in evening on dialysis days. I also coordinated with OSMAR Keith [place] [facility] [place]. Due to low BP at dialysis , she isto hold Imdur 30 mg on mornings of dialysis. Benigno Womack DO * Telephone Encounter - Henrietta Huddleston LPN - 01/01/2023 12:54 PM EST Is patient to be on 100mg BID? * Telephone Encounter - Tiffanie Nava last cleaner - 12/31/2022 10:36 AM EST Daughter Jenny calling regarding Metoprolol script. Says in the hospital said 100mg 2x daily and ran out of script. Called pharmacy and was told it was too early to refill. Please advise. Thank you, Tiffanie Nava Sprayer Leather 12/31/2022,10:36 AM documented in this encounter Plan of Treatment Upcoming Encounters Date Type Department Care Team (Late st Contact Info) Description 04/02/2023 6:30 AM EST Anticoagulation Pharmacy Call Center [place] [address] [place] [address] [facility] 60 [facility] [place] [address] 04/06/2023 12:00 PM EST Imaging Radiology [facility] 1st Floor, [address] [place] [address] 04/22/2023 9:30 AM EST Cardiac Studies Cardiac Studies, [facility] [address] [facility] [place] [address] 04/29/2023 12:00 PM EST Telemedicine Pulmonary Medicine, [place] [address] [place] [address] Jesus Dougherty MD [address] [place] [address] Cart, Telemed Pulm 132 [facility] [place] [address] 05/04/2023 1:30 PM EDT Office Visit Cardiology, [facility] [address] [facility] [place] [address] Vivi Vera CRNP 132 [facility] [place] [address] 07/06/2023 12:00 PM EDT Office Visit Gastroenterology, [facility] 132 [facility] [place] [address] Caroline Inman CRNP 132 [facility] [place] [address] 07/06/2023 2:00 PM EDT Office Visit Family Practice [place]iola Moura [address] [place] [address] Akiko Rae MD [address] [place] [address] Health Maintenance Due Date Last Done Comments [...] filedocumented as of this encounter Care Teams Teacher Lip Reading Relationship Specialty Start Date End Date Alberto Yuen III, MD [address] [place] [address] PCP - General Family Medicine 04/20/13 documented as of this encounter
--- OUTSIDE RECORDS SUMMARY | 2023-05-16 13:11 | External Medical Summary | Summary of Care ---
Author Name Unknown Organization [facility] Address [address] [place] [address] Phone [phone] Care Team Providers Care Case Management Director Name Role Phone Alpa CHAMBERLAIN MD, Alberto Milan Primary Care Provider [phone] Reason for Visit * Reason Comments Dosage Adjustment Via Phone (anticoag Cl inic) Encounter Details Date Type Department Care Team (Latest Contact Info) Description 04/02/2023 6:30 AM EST Anticoagulation Pharmacy Call Center [address] [place] [address] [facility] 58 60 [place] [address] Persistent atrial fibrillation (HCC)* Allergies Active Allergy [...] 1 Tablet before bedtime. 90 Tablet 3 10/07/2021 Active Fluticasone Propionate 50 MCG/ACT Nasal Suspension (Flonase) Administer into each nostril 2 Sprays in the morning. 48 g 3 10/07/2021 Active Famotidine 20 MG Oral Tablet [...] needed. 0 Active ProRenal + D w/ [place]-3 Oral Capsule Take 1 Tablet by mouth [...] FOR WHEEZING 54 g 1 04/01/2023 Active documented as of this encounter (statuses [...] mRNA, LNP-s, No Pre serve, 2-Dose Series ([employer]) 06/03/2021,02/22/2021,12/07/2020,10/23,04/18/2020,03/28/2020 COVID-19, MRNA-LNP, 23-24, P F, 30 [...] as of this encounter Progress Notes * Sonya Maya, rn cardiac - 04/02/2023 11:08 AM EST Contacts Type Contact Phone/Fax 04/02/2023 08:10 AM EST Phone (Outgoing) ghulam pak (Emergency Contact) [phone] 04/02/2023 11:05 AM EST Phone (Outgoing) ghulam pak (Emergency Contact) [phone] spoke to Ghulam Subjective Patient Findings Negatives: Signs/symptoms of bleeding, Change in health, Change in activity, Upcoming invasive procedure, Missed doses, Extra doses, Change in medications, Change in diet/appetite, Bruising Advised patient to contact Anticoagulation Clinic if any unusual bruising or bleeding, recent illness, changes in medication, or questions/concerns. PT/INR results, Coumadin dose instructions, and next PT/INR date communicated as noted by Pharmacist: Yes RACHID BURGOS Tech 04/02/2023, 11:08 AM * Jericho Beatty RPh - 04/02/2023 9:30 AM EST Coumadin Clinic (region specific) Objective Current Warfarin Dose As of 04/02/2023 Warfarin maintenance plan: 7.5 mg (5 mg x 1.5) every Wed; 5 mg (5 mg x 1) all other days INR Result As of 04/02/2023 INR goal: 2.0-3.0 INR used for dosin.5 (04/01/2023) Assessment & Plan Warfarin Plan As of 04/02/2023 Full warfarin instructions: 7.5 mg every Wed; 5 mg all other days No change documented: Jericho Beatty RPh Next INR check: 04/08/2023 Repeat PT/INR in 1 week(s) Weekly dose: not changed Additional Dosing Information: Description [employer] Home machine - 1 wk check per pt request Has 1 mg, 2.5 mg, and 5 mg Patient receives hemodialysis MWF. Pt requesting home INR machine. Paperwork is being sent to [employer] to contact patient with dose instructions as noted. Jericho Beatty RPh 04/02/2023, 9:30 AM * Cindy Leavitt rn cardiac - 04/02/2023 8:11 AM EST Patient Phone Numbers Patient calling in yesterday's INR result of 2.5 Thank you, Cindy Leavitt Complaint Clerk Centralized Clinical Pharmacy Services (CCPS) (Formerly Telepharmacy) 04/02/2023, 8:11 AM documented in this encounter Plan of Treatment Upcoming Encounters Date Type Department Care Team (Late st Contact Info) Description 04/06/2023 12:00 PM EST Imaging Radiology [facility] 1st [facility] [place] 132 [facility] [place] [address] 04/09/2023 6:30 AM EST Anticoagulation Pharmacy Call Center [address] [facility] [place] [address] Ccps, [facility] 58 60 [facility] [place] [address] 04/22/2023 9:30 AM EST Cardiac Studies Cardiac Studies, [facility] 132 [facility] [place] [address] 04/29/2023 12:00 PM EST Telemedicine Pulmonary Medicine, [place] [address] [place], [place] [address] Jesus Dougherty MD [address] [place], [place] [address] [place], [facility] [place] [address] 05/04/2023 1:30 PM EDT Office Visit Cardiology, [facility] 132 [facility] [place] [address] Vivi Vera CRNP [address] [place] [address] 07/06/2023 12:00 PM EDT Office Visit Gastroenterology, [facility] 132 [facility] [place] [address] Caroline Inman CRNP [address] [place] [address] 07/06/2023 2:00 PM EDT Office Visit Family Practice [place] Moura 200 [facility] [place] [address] Akiko Rae MD 200 [facility] [place] [address] Health Maintenance Due Date Last Done Comments [...] Date/Time Associated Diagnosis Comments OUTSIDE LAB-PT/INR Routine 04/01/2023 documented in this encounter Results * OUTSIDE LAB-PT/INR (04/01/2023) INR-OUTSIDE LAB 2.5 04/01/2023 History Per Patient LABORATORY documented in this encounter Visit Diagnoses Diagnosis Persistent atrial fibrillation (HCC)- Primary Atrial fibrillation documented in this encounter Care Teams Case Management Director Relationship Specialty Start Date End Date Alberto Yuen III, MD 200 [facility] [place] [address] PCP - General Family Medicine 04/20/13 documented as of this encounter
--- OUTSIDE RECORDS SUMMARY | 2023-05-16 13:11 | External Medical Summary | Summary of Care ---
Author Name Unknown Organization [facility] Address [address] [facility] [address] Phone [phone] Care Team Providers Care Aoc Operations Intelligence Officer Name Role Phone Alpa CHAMBERLAIN MD, Alberto Milan Primary Care Provider [phone] Encounter Details Date Type Department Care Team (Late st Contact Info) Description 04/02/2023 Result Scan Unspecified Department Jamila Low, [facility] [address] [place] [facility] [address] <No scans attached> Allergies Active Allergy Reactions [...] needed. 0 Active ProRenal + D w/ [place]-3 Oral Capsule Take 1 Tablet by mouth [...] mRNA, LNP-s, No Pre serve, 2-Dose Series ([employer]) 06/03/2021,02/22/2021,12/07/2020,10/23,04/18/2020,03/28/2020 COVID-19, MRNA-LNP, 23-24, P F, 30 [...] Description 04/06/2023 12:00 PM EST Imaging Radiology [facility]st [facility] 132 [facility] [place] [address] 04/22/2023 9:30 AM EST Cardiac Studies Cardiac Studies, [facility] 132 [facility] [place] [address] 04/29/2023 12:00 PM EST Telemedicine Pulmonary Medicine, [address] [place] [address] Jesus Dougherty MD [address] [place] [address] Shayy Carrasquillo [address] 132 [place] [address] 05/04/2023 1:30 PM EDT Office Visit Cardiology, [facility] 132 [place] [address] Vivi Vera CRNP 132 [place] [address] 07/06/2023 12:00 PM EDT Office Visit Gastroenterology, [facility] 132 [place] [address] Caroline Inman CRNP 132 [place] [address] 07/06/2023 2:00 PM EDT Office Visit Family Practice [facility] 200 [place] [address] Akiko Rae MD 200 [place] [address] Health Maintenance Due Date Last Done Comments [...] Date/Time Associated Diagnosis Comments OUTSIDE LAB RESULTS 04/02/2023 documented in this encounter Results * OUTSIDE LAB RESULTS (04/02/2023) 04/02/2023 Jamila Low [facility] LABORATORY documented in this encounter Care Teams Aoc Operations Intelligence Officer Relationship Specialty Start Date End Date Alberto Yuen III, MD 200 [facility] [place] [address] PCP - General Family Medicine 04/20/13 documented as of this encounter
--- OUTSIDE RECORDS SUMMARY | 2023-05-16 13:11 | External Medical Summary | Summary of Care ---
Author Name Unknown Organization [facility] Address [address] [place] [address] Phone [phone] Care Team Providers Care Granite Installer Name Role Phone Alpa CHAMBERLAIN MD, Alberto Milan Primary Care Provider [phone] Encounter Details Date Type Department Care Team (Late st Contact Info) Description 03/20/2023 Telephone Access Center, [place] [address] [facility] *DO NOT REMOVE THIS DEPARTMENT* [place] [address] Services, Scheduling [address] [place] [address] Allergies Active Allergy Reactions Criticality Noted Date Comments Pollen 06/24/2016 documented as of this encounter (statuses as of 03/25/2023) Medications Medication Sig Dispensed Refills Start Date [...] the morning. 48 g 3 10/07/2021 Active Ventolin HFA 108 (90 Base) MCG/ACT Inhalation Aerosol SolutionIndicatio ns:Asthma, moderate persistent INHALE TWO PUFFS EVERY 6 HOURS NEEDED FOR WHEEZING 54 g 1 08/21/2022 Active Famotidine 20 MG Oral Tablet (Pepcid) [...] needed. 0 Active ProRenal + D w/ [place]-3 Oral Capsule Take 1 Tablet by mouth [...] as of this encounter (statuses as of 03/25/2023) Active Problems Problem Noted Date Diagnosed Date [...] as of this encounter (statuses as of 03/25/2023) Resolved Problems Problem Noted Date Diagnosed Date [...] as of this encounter (statuses as of 03/25/2023) Immunizations Name Administration Dates Next Due COVID-19 mRNA, LNP-s, No Pre serve, 2-Dose Series ([email or web address]) 06/03/2021,02/22/2021,12/07/2020,10/23,04/18/2020,03/28/2020 COVID-19, MRNA-LNP, 23-24, P F, 30 [...] encounter Miscellaneous Notes * Telephone Encounter - Rosa Deleon OSA - 03/20/2023 10:16 AM EST Called patient to make aware appt cancelled on 07/07 and with Keshav Wu patient will need to be rescheduled. Thank you documented in this encounter Plan of Treatment Upcoming Encounters Date Type Department Care Team (Late st Contact Info) Description 03/26/2023 6:30 AM EST Anticoagulation Pharmacy Call Center [address] [place] [address] [facility] [address] [place] [address] 04/22/2023 9:30 AM EST Cardiac Studies Cardiac Studies, [facility] [address] [facility] [place] [address] 04/29/2023 12:00 PM EST Telemedicine Pulmonary Medicine, [place] [address] [place] [address] Jesus Dougherty MD [address] [place] [address] Cart, Telemed Pulm Gw 132 [facility] [place] [address] 05/04/2023 1:30 PM EDT Office Visit Cardiology, [facility] [address] [facility] [place] [address] Vivi Vera CRNP [address] [place] [address] 07/06/2023 2:00 PM EDT Office Visit Family Practice [facility] [address] [place] [address] Akiko Rae MD [address] [place] [address] Health Maintenance Due Date Last Done Comments [...] filedocumented as of this encounter Care Teams Granite Installer Relationship Specialty Start Date End Date Alberto Yuen III, MD [address] [place] [address] PCP - General Family Medicine 04/20/13 documented as of this encounter
--- OUTSIDE RECORDS SUMMARY | 2023-05-16 13:11 | External Medical Summary | Summary of Care ---
Author Name Unknown Organization [facility] Address [address] [place] [address] Phone [phone] Care Team Providers Care Director Of Quality Name Role Phone Alpa CHAMBERLAIN MD, Alberto Milan Primary Care Provider [phone] Reason for Visit * Reason Comments Dosage Adjustment Via Phone (anticoag Cl inic) Encounter Details Date Type Department Care Team (Latest Contact Info) Description 03/26/2023 6:30 AM EST Anticoagulation Pharmacy Call Center [phone] [place] [address] [facility] [address] [place] [address] Persistent atrial fibrillation (HCC)* Allergies Active Allergy Reactions Criticality Noted Date Comments Pollen 06/24/2016 documented as of this encounter (statuses as of 03/26/2023) Medications Medication Sig Dispensed Refills Start Date [...] needed. 0 Active ProRenal + D w/ [place]-3 Oral Capsule Take 1 Tablet by mouth [...] as of this encounter (statuses as of 03/26/2023) Active Problems Problem Noted Date Diagnosed Date [...] as of this encounter (statuses as of 03/26/2023) Resolved Problems Problem Noted Date Diagnosed Date [...] as of this encounter (statuses as of 03/26/2023) Immunizations Name Administration Dates Next Due COVID-19 mRNA, LNP-s, No Pre serve, 2-Dose Series ([employer]) 06/03/2021,02/22/2021,12/07/2020,10/23,04/18/2020,03/28/2020 COVID-19, MRNA-LNP, 23-24, P F, 30 [...] this encounter Progress Notes * Sonya Maya, stone sawyer - 03/26/2023 8:13 AM EST Contacts Type Contact Phone/Fax 03/26/2023 08:11 AM EST Phone (Outgoing) ghulam pak (Emergency Contact) [phone] spoke to Ghulam Subjective Patient Findings Negatives: [...] as noted by Pharmacist: Yes RACHID BURGOS 03/26/2023, 8:13 AM * Kandi Soto RPh - 03/26/2023 8:09 AM EST Coumadin Clinic (region specific) Objective Current Warfarin Dose As of 03/26/2023 Warfarin maintenance plan: 7.5 mg (5 mg x 1.5) every Wed; 5 mg (5 mg x 1) all other days INR Result As of 03/26/2023 INR goal: 2.0-3.0 INR used for dosin.2 (03/25/2023) Assessment & Plan Warfarin Plan As of 03/26/2023 Full warfarin instructions: 7.5 mg every Wed; 5 mg all other days No change documented: Kandi Soto RPh Next INR check: 04/01/2023 Repeat PT/INR in 1 week(s) Weekly dose: not changed Additional Dosing Information: Description [employer] Home machine - 1 wk check per pt request Has 1 mg, 2.5 mg, and 5 mg Patient receives hemodialysis MWF. Pt requesting home INR machine. Paperwork is being sent to [employer] to contact patient with dose instructions as noted. Kandi Soto RPh 03/26/2023, 8:09 AM * Cindy Leavitt PHARM Tech - 03/26/2023 8:04 AM EST Patient Phone Numbers Patient calling in today's INR result of 2.2 Thank you, Cindy Leavitt [facility] (Formerly Telepharm[facility]) 03/26/2023, 8:04 AM documented in this encounter Plan of Treatment Upcoming Encounters Date Type Department Care Team (Late st Contact Info) Description 04/06/2023 12:00 PM EST Imaging Radiology [facility] 132 [facility] [place] [address] 04/22/2023 9:30 AM EST Cardiac Studies Cardiac Studies, [facility] 132 [facility] [place] [address] 04/29/2023 12:00 PM EST Telemedicine Pulmonary Medicine, [place] [address] [place] [address] Jesus Dougherty MD [address] [place] [address] Cart, Telemed Pulm Gw [address] [facility] [place] [address] 05/04/2023 1:30 PM EDT Office Visit Cardiology, [facility] [address] [facility] [place] [address] Vivi Vera CRNP 132 [facility] [place] [address] 07/06/2023 12:00 PM EDT Office Visit Gastroenterology, [facility] [address] [facility] [place] [address] Caroline Inman CRNP 132 [facility] [place] [address] 07/06/2023 2:00 PM EDT Office Visit Family Practice [facility] [address] [place] [address] Akiko Rae MD [address] [place] [address] Health Maintenance Due Date Last Done Comments [...] Date/Time Associated Diagnosis Comments OUTSIDE LAB-PT/INR Routine 03/25/2023 documented in this encounter Results * OUTSIDE LAB-PT/INR (03/25/2023) INR-OUTSIDE LAB 2.2 03/25/2023 History Per Patient LABORATORY documented in this encounter Visit Diagnoses Diagnosis Persistent atrial fibrillation (HCC)- Primary Atrial fibrillation documented in this encounter Care Teams Director Of Quality Relationship Specialty Start Date End Date Alberto Yuen III, MD [address] [place] [address] PCP - General Family Medicine 04/20/13 documented as of this encounter
--- NOTE | 2023-05-16 13:54 | Emergency Department Note ---
Impression & Plan Atrial fibrillation with rapid ventricular response, Shortness of breath, ESRD (end stage renal disease) ED Provider Note HISTORY OF PRESENT ILLNESS: Patient is a 77-year-old female presenting with palpitations, chest pressure and short of breath. Daughter, who is a physician, helps provide history. Reports the patient has been having palpitations and shortness of breath since last night that have progressively worsened. The patient was complaining of some palpitations over the last 4 days and the daughter noted that her heart rate was in the 1 teens to the 130s. She takes metoprolol 25 mg daily and they were instructed that if she has an elevated heart rate that they can increase her dose. Daughter reports that the patient was given a total of 75 mg of p.o. metoprolol this morning and her heart rate remained in the 130s and the patient started becoming significantly more symptomatic with palpitations and shortness of breath, prompting presentation to the ER. Patient is on Coumadin and daughter denies any missed doses. Patient is an ESRD patient and receives dialysis Wednesday/Wednesday/Wednesday. She did receive a full treatment 2 days ago. No reported fevers. Patient denies any significant chest pain at this time. Denies any significant lower extremity edema. She does not wear any supplemental oxygen at baseline. ROS: as above PHYSICAL EXAM: Constitutional: Patient appears in no acute distress. HENT: Head: Normocephalic and atraumatic. Eyes: EOMI, PERRL Mouth/Throat: Mucous membranes moist. Neck: Trachea midline. Neck supple. Cardiovascular: Tachycardic with irregularly irregular rhythm. No murmurs, rubs or gallops. Intact distal pulses. Pulmonary/Chest: No respiratory distress. Breath sounds clear and equal bilaterally. No wheezes or rales. Abdominal: Abdomen soft, no tenderness, rebound or guarding. Musculoskeletal: No edema, tenderness or deformity noted. Fistula in left upper extremity with palpable thrill. Skin: Warm and dry. No rash, erythema, pallor or cyanosis Psychiatric: Appropriate mood and affect for situation. Neurological: Alert and keenly responsive. CN II-XII grossly intact, moving all extremities equally and fully. MDM: - Vitals signs showed tachycardia. - History obtained via patient and patient's daughter. History as above. - Chronic conditions affecting care: DM-2; HTN; HLD; Afib; ESRD; aortic stenosis - Differential diagnoses include, but are not limited to: Congestive heart failure; acute coronary syndrome; COPD/asthma exacerbation; pulmonary edema; pulmonary embolism; pneumonia; pneumothorax; viral syndrome - Order placed for continuous cardiac monitoring. At this time, monitor showed rate of 117 bpm with irregular rhythm, per my interpretation. - External medical records reviewed. Cardiology progress note dated 10/31/2022 was reviewed. Patient was admitted during that time for rapid A-fib. She was on metoprolol 125 mg at bedtime and 100 mg daily in the morning. She had been off of it her anticoagulation at that time so cardioversion was not performed. It appears in the note that there was consideration for cardioversion in 4 weeks versus watchman placement. - EKG interpreted by myself showed atrial flutter. Rate tachycardic at 140 bpm. QT 298. No acute ischemic changes. Patient does note to be in her 2-1 AV conduction pattern. - Patient initially given a 10 mg IV Cardizem bolus. Her heart rate went from the 150s to the 03/14[birth year]1929 region. - Discussed case with [facility] director public policy on-call, Dr. DeL a Rosa, at 14:29. Recommended cardizem drip at 10 mg/hr. However, on further discussion about patient's softer blood pressures after the bolus, the drip was initially held until the patient systolic blood pressure had improved to over 100 and the drip was started at 5 mg/h. - Laboratory workup interpreted by myself showed normal WBC; chronic anemia (Hgb 11.5); INR 2.6; stable electrolytes; ESRD (Cr 6.55); elevated troponin (40.9); elevated BNP (2312); elevated lipase (125) - CXR negative for pneumonia or nicole pulmonary edema, per my interpretation. Radiology notes some pulmonary vascular congestion. - Discussion was had with behavioral health case manager about patient's case and need for admission - Hospitalist consulted for admission - Patient admitted to [facility] hospitalist service for further evaluation and management. I have personally spent 38 minutes of critical care time in the direct management of this patient. This includes bedside care, interpretation of diagnostic studies, and testing, discussion with consultants, patient, and family members, and other required patient management activities. This 38 minutes is in excess of all separately billable procedures. ASSESSMENT AND PLAN: Diagnosis: Afib with RVR; shortness of breath; ESRD Plan: admit Past Med/Surg History Medical History (Updated 05/16/23 @ 16:27 by Mayuri Brandt MD) Lumbosacral pain Lumbar radicular pain Right sided sciatica Left rotator cuff tear Encounter for pre-operative examination Anemia of chronic disease Bilateral primary osteoarthritis of knee Chronic anemia Aortic stenosis Mild aortic stenosis (ASHLI 1.3-1.4cm2, MG 15.3mmhg) per 03/2022 echo Osteoarthritis of knees, bilateral RSV (respiratory syncytial virus pneumonia) History of COVID-19 Most recent 10/2021 ([facility])- symptoms resolved AV fistula LUE Hyperlipidemia Hypertension Sleep apnea CPAP + 2L HS End-stage renal disease on hemodialysis MWF ([facility]) Asthma, moderate persistent GERD (gastroesophageal reflux disease) Chronic anemia Hx iron infusions Gout Diabetes mellitus diet controlled Surgical History (Updated 03/23/23 @ 10:29 by Fernando Ellington PA-C) History of cataract surgery History of lumbar surgery S/P arteriovenous (AV) fistula creation Status post biopsy of kidney kidney disease History of colonoscopy History of esophagogastroduodenoscopy (EGD) 10/2021 History of cholecystectomy History of tooth extraction all teeth removed History of oral surgery salivary gland surgery History of cardiac cath 2017 ([facility])- no stents H/O partial thyroidectomy History of appendectomy H/O: hysterectomy SANDRA BSO Family History Daughter Cancer Daughter Cancer Daughter Hypertension Daughter Hypertension Father Diabetes Hypertension Mother Hypertension Brother Diabetes Brother Diabetes Sister Diabetes Sister Diabetes Sister Hypertension Sister Hypertension Other No family history of adverse response to anesthesia Social History Smoking Status: Never smoker Second Hand Exposure: No; Do You Dip or Chew Tobacco: No; Hx Alcohol Use: No Hx Substance Use: No Preferred Language: Korean Communication Ability: Effective Communication Ability Comment: daughter states her mother can read/write/understand occitan Senior Telecommunications Engineer Required: No Beliefs That Will Affect Care: None marital status: / Current Living Situation: Family Current Living Situation Comment: Lives with daughter Feels Safe at Home: Yes Assistive Devices: Cane and Walker Allergies Allergies Allergy/AdvReac Type Severity Reaction Status Date / Time pollen extracts Allergy Mild sneezing, Verified 03/23/23 09:48 watery eyes Home Meds Home Medications Medication Instructions Recorded Confirmed atorvastatin 40 mg tablet 40 mg PO QAM 11/10/18 05/16/23 famotidine 20 mg tablet 20 mg PO AMHS 05/28/21 05/16/23 lidocaine-prilocaine 2.5 %-2.5 % See Rx Instructions topical 05/28/21 05/16/23 topical cream .COMPLEX nitroglycerin 0.4 mg sublingual 0.4 mg sublingual Q5M PRN Chest 05/28/21 05/16/23 tablet (Nitrostat) Pain polyethylene glycol 3350 17 gram 17 g PO BID PRN Constipation 05/28/21 05/16/23 oral powder packet (Miralax) triamcinolone acetonide 0.025 % 1 applic topical BID PRN Rash 05/28/21 05/16/23 lotion fluticasone fur. 100 mcg-umeclid 1 inh inhalation QAM 10/14/21 05/16/23 62.5 mcg-vilant 25 mcg inhalat.powder (Trelegy Ellipta) albuterol sulfate 90 mcg/actuation 2 puff inhalation Q6 PRN Wheezing 01/26/22 05/16/23 aerosol inhaler (Ventolin HFA) fluticasone propionate 50 2 spray intranasal QAM Allergy 01/26/22 05/16/23 mcg/actuation nasal Symptoms spray,suspension ondansetron HCl 4 mg tablet 4 mg PO Q8 PRN Nausea 01/26/22 05/16/23 sevelamer carbonate 800 mg tablet 1,600 mg PO TIDM 01/26/22 05/16/23 (Renvela) pantoprazole 40 mg tablet,delayed 40 mg PO AMHS 05/16/23 05/16/23 release tramadol 50 mg tablet 50 mg PO DAILY PRN Pain 05/16/23 05/16/23 vit B complx, C-iron 8 mg-folic 1 tab PO DAILY 05/16/23 05/16/23 acid 800 mcg-D3 1,000 unit-zinc tablet (ProRenal) warfarin 2.5 mg tablet 7.5 mg PO DIRECTED 05/16/23 05/16/23 warfarin 5 mg tablet 5 mg PO DIRECTED 05/16/23 05/16/23 Previous Rx's Medication Instructions Recorded metoprolol succinate 50 mg 50 mg PO BID 90 days #180 tabs 01/04/23 tablet,extended release 24 hr Results & Data (ED) Vital Signs Vital Signs - 24 hr 05/16/23 13:04 05/16/23 13:07 05/16/23 13:21 Temperature 36.2 C L Temperature Source Temporal Artery Scan Pulse Rate 136 H Pulse Rate [Apical] Pulse Rate from SpO2 Sensor Respiratory Rate 20 Respiratory Effort / Characteristics Non-Labored Spontaneous Spontaneous Short of Breath SOB on Exertion Respiratory Depth Normal Normal Blood Pressure 104/73 Blood Pressure [Right Arm] Blood Pressure Mean 83 Blood Pressure Mean [Right Arm] Pulse Oximetry 96 Oxygen Delivery Method Room Air Nasal Cannula Room Air Oxygen Flow Rate 2 Sepsis Recent Fever Within 48 Hours No Sepsis New/Unexplained Change in Mental Status N/A Sepsis Action Taken by Nursing No Action Required 05/16/23 13:57 05/16/23 14:00 05/16/23 14:17 Temperature Temperature Source Pulse Rate 136 H 136 H 139 H Pulse Rate [Apical] Pulse Rate from SpO2 Sensor 136 H 135 H Respiratory Rate 25 H 23 Respiratory Effort / Characteristics Respiratory Depth Blood Pressure 111/85 114/85 Blood Pressure [Right Arm] Blood Pressure Mean 93 94 Blood Pressure Mean [Right Arm] Pulse Oximetry 100 100 Oxygen Delivery Method Nasal Cannula Oxygen Flow Rate 2 2 Sepsis Recent Fever Within 48 Hours Sepsis New/Unexplained Change in Mental Status Sepsis Action Taken by Nursing 05/16/23 14:30 05/16/23 15:14 05/16/23 15:49 Temperature Temperature Source Pulse Rate 117 H Pulse Rate [Apical] 117 H Pulse Rate from SpO2 Sensor 118 H Respiratory Rate 24 16 Respiratory Effort / Characteristics Respiratory Depth Blood Pressure 129/99 Blood Pressure [Right Arm] 98/72 L 111/72 Blood Pressure Mean 109 Blood Pressure Mean [Right Arm] 80 85 Pulse Oximetry 98 97 Oxygen Delivery Method Nasal Cannula Oxygen Flow Rate 2 2 Sepsis Recent Fever Within 48 Hours Sepsis New/Unexplained Change in Mental Status Sepsis Action Taken by Nursing Laboratory Data 05/16/23 13:35 05/16/23 13:35 Lab Results 05/16/23 Range/Units 13:35 WBC 6.82 (4.8-10.8) K/ul RBC 4.56 (4.20-5.40) M/uL Hgb 11.5 L (12.0-16.0) g/dl Hct 36.7 L (37.0-47.0) % MCV 80.5 (80.0-100.0) fL MCH 25.2 (25.0-34.0) pg MCHC 31.3 L (32.0-36.0) g/dL RDW Std Deviation 43.9 (36.4-46.3) fL RDW Coeff of Luis 15.4 H (11.5-14.5) % Plt Count 225 (130-400) K/uL MPV 10.3 (9.4-12.4) fL Immature Gran % (Auto) 0.1 % Neut % (Auto) 64.0 % Lymph % (Auto) 23.5 % Haines % (Auto) 8.8 % Eos % (Auto) 2.9 % Baso % (Auto) 0.7 % Neut # (Auto) 4.36 (1.40-6.50) K/uL Lymph # (Auto) 1.60 (1.20-3.40) K/uL Haines # (Auto) 0.60 H (0.11-0.59) K/uL Eos # (Auto) 0.20 (0.00-0.50) K/uL Baso # (Auto) 0.05 (0.00-0.20) K/uL Immature Gran # (Auto) 0.01 (0.01-0.20) K/uL Absolute Nucleated RBC 0.02 (0.00-0.12) K/uL Nucleated RBC % (auto) 0.3 % PT 27.2 H (9.0-12.0) Seconds INR 2.6 H (0.9-1.1) Sodium 140 (136-145) mmol/L Potassium 4.7 (3.5-5.1) mmol/L Chloride 96 L (98-107) mmol/L Carbon Dioxide 32 (21-32) mmol/L Anion Gap 12 H (3-11) BUN 55 H (6-23) mg/dl Creatinine 6.55 H* (0.6-1.2) mg/dl Est Cr Clr Drug Dosing 6.6 ml/min Est GFR ( Amer) 6.5 ml/min Est GFR (Non-Af Amer) 5.6 ml/min BUN/Creatinine Ratio 8.4 L (10-20) Glucose 98 (70-99(Fasting)) mg/dl Calcium 8.9 (8.6-10.3) mg/dl Magnesium 2.3 (1.7-2.4) mg/dl Total Bilirubin 0.4 (0.2-1.0) mg/dl AST 23 (13-39) U/L ALT 15 (7-52) U/L Alkaline Phosphatase 125 H (34-104) U/L Troponin I High Sens 40.9 H (0-14) pg/ml B-Natriuretic Peptide 2312 H (0-100) pg/ml Total Protein 7.4 (6.0-8.3) gm/dl Albumin 4.1 (3.4-5.0) gm/dl Globulin 3.3 (2.5-4.0) gm/dl Albumin/Globulin Ratio 1.2 (0.9-2) Lipase 125 H (11-82) U/L Administered Medications Diltiazem HCl 125 mg/ Dextrose 125 mls @ 10 mls/hr IV .[id number] [facility]; Protocol Stop: 06/15/23 14:44 Last Admin: 05/16/23 15:51 Dose: 5 mg/hr, 5 mls/hr Documented By: MAGDA Co-signed By: MMGarrett Discontinued Medications Diltiazem HCl (Diltiazem Hcl 5 Mg/Ml 5 Ml Vial) 10 mg IV NOW STA Stop: 05/16/23 13:26 Last Admin: 05/16/23 13:57 Dose: 10 mg Documented By: ARS Co-signed By: MT Imaging Data Radiologist's Impression: Chest X-Ray 05/16/23 13:21 XR chest 1V portable CLINICAL HISTORY: Chest pain, nonspecific TECHNIQUE: Single frontal radiograph of the chest was obtained. Comparison: Comparison is made to chest radiograph 10/25/2022 FINDINGS: No lines and tubes are seen. Cardiomegaly is noted. Pulmonary edema has improved from prior exam however prominent pulmonary vasculature is again seen. No evidence of pleural effusion or pneumothorax. A hiatal hernia is again seen. IMPRESSION: Cardiomegaly with pulmonary vascular congestion but no nicole pulmonary edema. ACT 112: Negative or not required by law. Electronically signed by: Maxx Jacobson M.D. 05/16/2023 1:59 PM Discharge Plan Visit Data Chief Complaint: Cardiac Assessment Stated Complaint: PALPITATIONS, DIZZINESS, SHORTNESS OF BREATH ED Provider: Mayuri Brandt Discharge Problem: Atrial fibrillation with rapid ventricular response, Shortness of breath, ESRD (end stage renal disease) Forms Stand Alone Forms: [facility] Prescriptions Prescriptions: No Action metoprolol succinate 50 mg tablet extended release 24 hr 50 mg PO BID 90 Days Qty: 180 1RF Rx Instructions: Hold AM dose on dialysis days atorvastatin 40 mg tablet 40 mg PO QAM lidocaine-prilocaine 2.5-2.5 % cream See Rx Instructions topical .COMPLEX Rx Instructions: apply small amount to access site (AVF) 1 to 2 hours before dialysis. cover with occlusive dressing (SARAN WRAP) polyethylene glycol 3350 [Miralax] 17 gram powder in packet 17 g PO BID PRN (Reason: Constipation) Rx Instructions: pt uses prn nitroglycerin [Nitrostat] 0.4 mg tablet, sublingual 0.4 mg sublingual Q5M PRN (Reason: Chest Pain) Rx Instructions: do not exceed 3 doses per episode famotidine 20 mg tablet 20 mg PO AMHS triamcinolone acetonide 0.025 % lotion 1 applic topical BID PRN (Reason: Rash) Trelegy Ellipta 100-62.5-25 mcg Blister With Device 1 inh INHALATION QAM Rx Instructions: rinse after use fluticasone propionate 50 mcg/actuation spray,suspension 2 spray INTRANASAL QAM albuterol sulfate [Ventolin HFA] 90 mcg/actuation HFA aerosol inhaler 2 puff INHALATION Q6 PRN (Reason: Wheezing) sevelamer carbonate [Renvela] 800 mg tablet 1,600 mg PO TIDM ondansetron HCl 4 mg tablet 4 mg PO Q8 PRN (Reason: Nausea) Rx Instructions: TAKE ONE TABLET BY MOUTH TWICE DAILY NEEDED FOR NAUSEA / VOMITING pantoprazole 40 mg tablet,delayed release (DR/EC) 40 mg PO AMHS warfarin 2.5 mg tablet 7.5 mg PO DIRECTED Patient Comments: 7.5 mg every wednesday, 5 mg rest of the week Rx Instructions: To be determined by Coumadin Clinic warfarin 5 mg tablet 5 mg PO DIRECTED Patient Comments: 7.5 mg every wednesday, 5 mg rest of the week Rx Instructions: To be determined by Coumadin Clinic ProRenal 8 mg iron-800 mcg-1,000 unit tablet 1 tab PO DAILY tramadol 50 mg tablet 50 mg PO DAILY PRN (Reason: Pain) Referrals Referrals: Alberto Yuen MD [Primary Care Provider] -
[2023-05-16 13:56] LABS: Basophils # (auto) 0.05 K/uL (0.00-0.20); Basophils % (auto) 0.7 %; Eosinophils % (auto) 2.9 %; Hematocrit (blood only) 36.7 % (37.0-47.0); Hemoglobin 11.5 g/dl (12.0-16.0); Immature Granulocytes # (auto) 0.01 K/uL (0.01-0.20); Immature Granulocytes % (auto) 0.1 %; Lymphocytes % (auto) 23.5 %; Mean Corpuscular Hemoglobin 25.2 pg (25.0-34.0); Mean Corpuscular Hgb Conc 31.3 g/dL (32.0-36.0); Mean Corpuscular Volume 80.5 fL (80.0-100.0); Mean Platelet Volume 10.3 fL (9.4-12.4); Monocytes % (auto) 8.8 %; Neutrophils # (auto) 4.36 K/uL (1.40-6.50); Nucleated RBC # (auto) 0.02 K/uL (0.00-0.12); Nucleated RBC % (auto) 0.3 %; Platelet Count 225 K/uL (130-400); RDW Coefficient of Variation 15.4 % (11.5-14.5); RDW Standard Deviation 43.9 fL (36.4-46.3); Red Blood Count 4.56 M/uL (4.20-5.40); White Blood Count 6.82 K/ul (4.8-10.8)
[2023-05-16] MEDS: dilTIAZem HCl 5 MG/ML 5 ML VIAL IV STA (13:57)
--- NOTE | 2023-05-16 14:00 | XRay Report ---
XR chest 1V portable CLINICAL HISTORY: Chest pain, nonspecific TECHNIQUE: Single frontal radiograph of the chest was obtained. Comparison: Comparison is made to chest radiograph 10/25/2022 FINDINGS: No lines and tubes are seen. Cardiomegaly is noted. Pulmonary edema has improved from prior exam sal ben prominent pulmonary vasculature is again seen. No evidence of pleural effusion or pneumothorax. A hiatal hernia is again seen. IMPRESSION: Cardiomegaly with pulmonary vascular congestion but no nicole pulmonary edema. ACT 112: Negative or not required by law. Electronically signed by: Maxx Jacobson M.D. 05/16/2023 1:59 PM
[2023-05-16 14:15] LABS: Albumin Globulin Ratio 1.2 (0.9-2); Albumin Level 4.1 gm/dl (3.4-5.0); BUN Creatinine Ratio 8.4 (10-20); Bilirubin,Total 0.4 mg/dl (0.2-1.0); Calcium 8.9 mg/dl (8.6-10.3); Creatinine Clr Calc Pharmacy 6.6 ml/min; Est GFR (African American) 6.5 ml/min; Est GFR (Non-African American) 5.6 ml/min; Globulin 3.3 gm/dl (2.5-4.0); Magnesium 2.3 mg/dl (1.7-2.4); Potassium 4.7 mmol/L (3.5-5.1); Total Protein 7.4 gm/dl (6.0-8.3)
[2023-05-16 14:42] LABS: INR 2.6 (0.9-1.1); Prothrombin Time 27.2 Seconds (9.0-12.0)
--- NOTE | 2023-05-16 15:03 | Electrocardiogram Report ---
Test Reason : Blood Pressure : / mmHG Vent. Rate : 140 BPM Atrial Rate : 280 BPM P-R Int : 000 ms QRS Dur : 114 ms QT Int : 298 ms P-R-T Axes : 098 -53 119 degrees QTc Int : 454 ms Atrial flutter with 2:1 A-V conduction Pulmonary disease pattern Left anterior fascicular block Minimal voltage criteria for LVH, may be normal variant ( [place] product ) Abnormal ECG When compared with ECG of 25-OCT-2022 06:13, Atrial flutter has replaced Atrial fibrillation Vent. rate has increased BY 47 BPM Confirmed by Mika Russell ([id number]) on 05/16/2023 3:03:17 PM Referred By: REFERRED SELF Confirmed By:Mika Russell
[2023-05-16 15:51] LABS: Troponin I High Sensitivity 40.9 pg/ml (0-14)
[2023-05-16] MEDS: dilTIAZem HCL 125 MG in DEXTROSE 5% 100 ML IV SCH (15:51)
--- NOTE | 2023-05-16 16:46 | History & Physical Report ---
Date of Service May 16, 2023 Assessment & Plan (1) Atrial fibrillation with rapid ventricular response: (2) End-stage renal disease on hemodialysis: (3) Sleep apnea: (4) GERD (gastroesophageal reflux disease): (5) Asthma, moderate persistent: Plan 77-year-old female with history of ESRD on hemodialysis MWF, A-fib on metoprolol/Coumadin, LAUREN on CPAP, GERD/hiatal hernia on PPI/Pepcid, asthma on Trelegy who presented to the ED with shortness of breath, palpitations and di zziness and found to be in rapid A-fib/flutter Rapid A-fib/a flutter-EKG reviewed. Prior echo and notes from October reviewed when she was admitted for the same. ED physician discussed with cardi ology and started on Cardizem bolus and drip. Will admit to PCU on telemetry with Cardizem drip. Continue metoprolol. Cards consulted. Troponin slightly elevated from same, will trend for completeness. BNP chronically elevated. Will keep n.p.o. overnight in case she does not convert and required cardioversion. -Continue Coumadin, INR therapeutic (Coumadin dose is 7.5 mg on Wednesday and 5 mg rest the week), check INR in AM. ESRD on hemodialysis MWF-dialysis tomorrow per schedule. Nephrology consulted. Continue sevelamer. LAUREN on CPAP assist with 2 L of oxygen at night-daughter will bring CPAP machine from home. Lipase mildly elevated, but no GI symptoms, unclear significance. Asthma-symptoms controlled, continue home Trelegy. GERD/hiatal hernia-continue home Pepcid and PPI twice daily DVT prophylaxis-full anticoagulated on Coumadin Disposition-admit to PCU on telemetry Updated daughter at bedside Time spent-approximately 87 minutes History of Present Illness Chief Complaint: Shortness of breath, palpitations, dizziness Primary Care Provider: Alberto Yuen MD 77-year-old female with history of ESRD on MWF, LAUREN on CPAP with 2 L nocturnal oxygen, bronchial asthma, GERD/hiatal hernia, atrial fibrillation, etc who presents today for shortness of breath, palpitations and dizziness. History taken from patient and daughter at bedside. Daughter is a physician. States she has been having shortness of breath and palpitations and was found to have elevated heart rate for the past few days, even during dialysis. They tried to reach cardiology but did not hear back. Daughter increased her home metoprolol from 50 to 75 but did not make a difference and she was brought to the ED for further management. In the ED, she was found to be in A-fib with RVR. ED physician discussed with cardiology and was given Cardizem bolus and started on drip with improvement in heart rate. She feels little better during the encounter. Denies any fever, chills, chest pain, lightheadedness, dizziness, nausea vomiting, confusion. States she makes little urine and gets her volume offloaded from dialysis. She takes Coumadin 7.5 mg on Wednesday and 5 mg on rest of the week. Uses CPAP at night and daughter is going to bring from home. Medications reconciled at bedside. Allergies Allergy/AdvReac Type Severity Reaction Status Date / Time pollen extracts Allergy Mild sneezing, Verified 03/23/23 09:48 watery eyes Home Medications Medication Instructions Recorded Confirmed Type atorvastatin 40 mg tablet 40 mg PO QAM 11/10/18 05/16/23 History famotidine 20 mg tablet 20 mg PO AMHS 05/28/21 05/16/23 History lidocaine-prilocaine 2.5 %-2.5 % See Rx Instructions topical 05/28/21 05/16/23 History topical cream .COMPLEX nitroglycerin 0.4 mg sublingual 0.4 mg sublingual Q5M PRN Chest 05/28/21 05/16/23 History tablet (Nitrostat) Pain polyethylene glycol 3350 17 gram 17 g PO BID PRN Constipation 05/28/21 05/16/23 History oral powder packet (Miralax) triamcinolone acetonide 0.025 % 1 applic topical BID PRN Rash 05/28/21 05/16/23 History lotion fluticasone fur. 100 mcg-umeclid 1 inh inhalation QAM 10/14/21 05/16/23 History 62.5 mcg-vilant 25 mcg inhalat.powder (Trelegy Ellipta) albuterol sulfate 90 mcg/actuation 2 puff inhalation Q6 PRN Wheezing 01/26/22 05/16/23 History aerosol inhaler (Ventolin HFA) fluticasone propionate 50 2 spray intranasal QAM Allergy 01/26/22 05/16/23 History mcg/actuation nasal Symptoms spray,suspension ondansetron HCl 4 mg tablet 4 mg PO Q8 PRN Nausea 01/26/22 05/16/23 History sevelamer carbonate 800 mg tablet 1,600 mg PO TIDM 01/26/22 05/16/23 History (Renvela) metoprolol succinate 50 mg 50 mg PO BID 90 days #180 tabs 01/04/23 05/16/23 Rx tablet,extended release 24 hr pantoprazole 40 mg tablet,delayed 40 mg PO AMHS 05/16/23 05/16/23 History release tramadol 50 mg tablet 50 mg PO DAILY PRN Pain 05/16/23 05/16/23 History vit B complx, C-iron 8 mg-folic 1 tab PO DAILY 05/16/23 05/16/23 History acid 800 mcg-D3 1,000 unit-zinc tablet (ProRenal) warfarin 2.5 mg tablet 7.5 mg PO DIRECTED 05/16/23 05/16/23 History warfarin 5 mg tablet 5 mg PO DIRECTED 05/16/23 05/16/23 History Past Med/Surg History Medical History Lumbosacral pain Lumbar radicular pain Right sided sciatica Left rotator cuff tear Encounter for pre-operative examination Anemia of chronic disease Bilateral primary osteoarthritis of knee Chronic anemia Aortic stenosis Mild aortic stenosis (ASHLI 1.3-1.4cm2, MG 15.3mmhg) per 03/2022 echo Osteoarthritis of knees, bilateral RSV (respiratory syncytial virus pneumonia) History of COVID-19 Most recent 10/2021 ([facility])- symptoms resolved AV fistula LUE Hyperlipidemia Hypertension Sleep apnea CPAP + 2L HS End-stage renal disease on hemodialysis MWF ([facility]) Asthma, moderate persistent GERD (gastroesophageal reflux disease) Chronic anemia Hx iron infusions Gout Diabetes mellitus diet controlled Surgical History History of cataract surgery History of lumbar surgery S/P arteriovenous (AV) fistula creation Status post biopsy of kidney kidney disease History of colonoscopy History of esophagogastroduodenoscopy (EGD) 10/2021 History of cholecystectomy History of tooth extraction all teeth removed History of oral surgery salivary gland surgery History of cardiac cath 2017 ([facility])- no stents H/O partial thyroidectomy History of appendectomy H/O: hysterectomy SANDRA BSO Family History Daughter Cancer Breast Daughter Cancer Breast Daughter Hypertension Daughter Hypertension Father Diabetes Hypertension Mother Hypertension Brother Diabetes Brother Diabetes Sister Diabetes Sister Diabetes Sister Hypertension Sister Hypertension Other No family history of adverse response to anesthesia Social History Smoking Status: Never smoker Second Hand Exposure: No; Do You Dip or Chew Tobacco: No; Hx Alcohol Use: No Hx Substance Use: No Preferred Language: Montenegrin Communication Ability: Effective Communication Ability Comment: daughter states her mother can read/write/understand tunisian Face Burler Required: No Beliefs That Will Affect Care: None marital status: / Current Living Situation: Family Current Living Situation Comment: Lives with daughter Feels Safe at Home: Yes Assistive Devices: Cane and Walker Review of Systems Review of Systems: All systems reviewed & are unremarkable except as noted in Subjective Physical Exam Physical Exam: General: Lying comfortably in bed, not in distress, on NC HEENT: EOMI, BEAR, MMM Chest: Clear breath sounds bilaterally CVS: Irregular rate and rhythm Abdomen: Soft, non tender, not distended, normal bowel sounds Neuro: Awake, alert, oriented, conversing well, non focal Extremities: Left upper extremity AV fistula. No edema. Results & Data Results & Data Vital Signs (Past 12 Hours) Vital Signs Temp Pulse Pulse Resp BP BP Pulse Ox 05/16/23 16:15 105/82 05/16/23 16:15 132 H 23 100 05/16/23 16:00 132 H 23 99 05/16/23 16:00 110/85 05/16/23 15:49 111/72 05/16/23 15:45 111/72 05/16/23 15:45 133 H 18 100 05/16/23 15:42 103/82 05/16/23 15:42 133 H 18 99 05/16/23 15:30 99/76 L 05/16/23 15:30 136 H 19 100 05/16/23 15:24 126 H 21 100 05/16/23 15:24 106/63 05/16/23 15:15 125 H 15 100 05/16/23 15:14 117 H 16 98/72 L 97 05/16/23 15:10 98/72 L 05/16/23 15:10 124 H 10 L 100 05/16/23 15:00 104/76 05/16/23 15:00 115 H 21 100 05/16/23 14:45 109 H 22 100 05/16/23 14:30 117 H 24 129/99 98 05/16/23 14:17 139 H 05/16/23 14:00 136 H 23 114/85 100 05/16/23 13:57 136 H 25 H 111/85 100 05/16/23 13:21 05/16/23 13:07 05/16/23 13:04 36.2 C L 136 H 20 104/73 96 O2 Del Method O2 Flow Rate 05/16/23 16:15 05/16/23 16:15 2 05/16/23 16:00 2 05/16/23 16:00 05/16/23 15:49 05/16/23 15:45 05/16/23 15:45 05/16/23 15:42 05/16/23 15:42 05/16/23 15:30 05/16/23 15:30 2 05/16/23 15:24 2 05/16/23 15:24 05/16/23 15:15 2 05/16/23 15:14 Nasal Cannula 2 05/16/23 15:10 05/16/23 15:10 2 05/16/23 15:00 05/16/23 15:00 2 05/16/23 14:45 2 05/16/23 14:30 2 05/16/23 14:17 05/16/23 14:00 2 05/16/23 13:57 Nasal Cannula 2 05/16/23 13:21 Room Air 05/16/23 13:07 Nasal Cannula 2 05/16/23 13:04 Room Air Laboratory Results Short CBC 05/16/23 Range/Units 13:35 WBC 6.82 (4.8-10.8) K/ul Hgb 11.5 L (12.0-16.0) g/dl Hct 36.7 L (37.0-47.0) % Plt Count 225 (130-400) K/uL BMP 05/16/23 13:35 Sodium 140 Potassium 4.7 Chloride 96 L Carbon Dioxide 32 BUN 55 H Creatinine 6.55 H* Glucose 98 Calcium 8.9 Liver Function 05/16/23 Range/Units 13:35 Total Bilirubin 0.4 (0.2-1.0) mg/dl AST 23 (13-39) U/L ALT 15 (7-52) U/L Alkaline Phosphatase 125 H (34-104) U/L Albumin 4.1 (3.4-5.0) gm/dl Diagnostic Findings Chest X-Ray 05/16/23 13:21 XR chest 1V portable CLINICAL HISTORY: Chest pain, nonspecific TECHNIQUE: Single frontal radiograph of the chest was obtained. Comparison: Comparison is made to chest radiograph 10/25/2022 FINDINGS: No lines and tubes are seen. Cardiomegaly is noted. Pulmonary edema has improved from prior exam however prominent pulmonary vasculature is again seen. No evidence of pleural effusion or pneumothorax. A hiatal hernia is again seen. IMPRESSION: Cardiomegaly with pulmonary vascular congestion but no nicole pulmonary edema. ACT 112: Negative or not required by law. Electronically signed by: Maxx Jacobson M.D. 05/16/2023 1:59 PM Code Status & VTE Plan VTE Prophylaxis Plan VTE Prophylaxis will be ordered: Yes
[2023-05-16 17:15] LABS: Influenza A virus by PCR Negative (Neg); Influenza B virus by PCR Negative (Neg); RSV by PCR Negative (Neg); SARS CoV2 RNA(COVID-19) Ceph NEGATIVE (Negative)
[2023-05-16] MEDS ORDERED: NITROGLYCERIN SL 0.4 MG/TAB TAB SL PRN (18:16)
[2023-05-16] MEDS ORDERED: ALBUTEROL HFA 8 GM INHALER INH PRN (18:16)
[2023-05-16] MEDS ORDERED: TRIAMCINOLONE ACET 0.025% CR 15 GM TUBE TOP PRN (18:23)
[2023-05-16] MEDS: PANTOprazole 40 MG TAB PO SCH (21:17)
[2023-05-16] MEDS: SEVELAMER HCL 800 MG TABLET PO SCH (21:17)
[2023-05-16] MEDS: FAMOTIDINE 20 MG TAB PO SCH (21:17)
[2023-05-16] MEDS: WARFARIN SOD 5 MG TAB PO SCH (21:17)
[2023-05-16] MEDS: METOPROLOL SUCC 50MG EXT REL TAB PO SCH (21:17)
[2023-05-16] MEDS ORDERED: STAT IV Infusion **Titration per Protocol STA (22:19)
[2023-05-16] MEDS ORDERED: 0.2 MICRON FILTER SET 1 EACH IV STA (22:19)
[2023-05-16] MEDS ORDERED: AMIODARONE IV BOLUS & DRIP IV STA (22:19)
--- NOTE | 2023-05-16 22:20 | Communication Note ---
Date of Service: May 16, 2023 Uncontrolled A-fib, Heart rate 110s, SBP 90s on Cardizem drip Amiodarone in place of Cardizem infusion for now
[2023-05-16] MEDS: STAT IV Infusion **Titration per Protocol STA (22:27)
[2023-05-16] MEDS: AMIODARONE / D5W 150 MG/100 ML BAG IV STA (22:37)
[2023-05-16] MEDS: AMIODARONE / D5W 360 MG/200 ML BAG IV ONE (22:49)
[2023-05-17] MEDS: AMIODARONE / D5W 360 MG/200 ML BAG IV SCH (04:31)
[2023-05-17 06:17] LABS: Hematocrit (blood only) 34.4 % (37.0-47.0); Hemoglobin 10.8 g/dl (12.0-16.0); Mean Corpuscular Hemoglobin 24.9 pg (25.0-34.0); Mean Corpuscular Hgb Conc 31.4 g/dL (32.0-36.0); Mean Corpuscular Volume 79.4 fL (80.0-100.0); Mean Platelet Volume 9.8 fL (9.4-12.4); Nucleated RBC # (auto) 0.02 K/uL (0.00-0.12); Nucleated RBC % (auto) 0.3 %; Platelet Count 198 K/uL (130-400); RDW Coefficient of Variation 15.4 % (11.5-14.5); RDW Standard Deviation 43.7 fL (36.4-46.3); Red Blood Count 4.33 M/uL (4.20-5.40); White Blood Count 7.22 K/ul (4.8-10.8)
[2023-05-17 06:46] LABS: INR 2.8 (0.9-1.1); Prothrombin Time 28.5 Seconds (9.0-12.0)
[2023-05-17 06:50] LABS: Albumin Globulin Ratio 1.2 (0.9-2); Albumin Level 3.6 gm/dl (3.4-5.0); BUN Creatinine Ratio 8.2 (10-20); Bilirubin,Total 0.4 mg/dl (0.2-1.0); Calcium 8.8 mg/dl (8.6-10.3); Creatinine Clr Calc Pharmacy 5.2 ml/min; Est GFR (African American) 4.9 ml/min; Est GFR (Non-African American) 4.3 ml/min; Magnesium 2.3 mg/dl (1.7-2.4); Phosphorus 6.5 mg/dl (2.5-4.9); Potassium 5.1 mmol/L (3.5-5.1); Total Protein 6.6 gm/dl (6.0-8.3); Troponin I High Sensitivity 58.7 pg/ml (0-14)
[2023-05-17] MEDS ORDERED: ONDANSETRON INJ 2 MG/ML 2 ML VIAL IV PRN (08:11)
--- NOTE | 2023-05-17 09:02 | Nephrology Consultation ---
Date of Consultation May 17, 2023 Assessment & Plan (1) End-stage renal disease on hemodialysis: * HD MWF * Orders for HD this aM entered into the EHR and reviewed with physical science professor * Ms. Ward was seen and evalauted during HD this morning * Volume status reasonably acceptable * AVF functioning well * Qb at goal * Renal diet * Medications are dosed appropriately for kidney function (2) Rapid atrial fibrillation: * On Amiodarone IV and metoprolol * Cardiology consultation * Cardizem gtt held (3) Anemia: * Hgb is within target 10-11 g/dL range * Will order iron studies w/ am lab (4) Sleep apnea: * Nocturnal CPAP as per primary service History of Present Illness Reason for Consultation: ESRD on HD Requesting Physician: Ирина Siegel MD Attending Physician: Ирина Siegel MD History of Present Illness Ms. 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 She has been on HD since 03/11 and dialyzes at [facility] (MWF 3.25 hr, F-180NR, Qb 350/Qd 600, 2K 2Ca, Na137, HCO3 36, EDW 64.5 kg, heparin 1500 unit loading dose, L BC AVF). Medical history is significant for complex cyst involving R kidney, thyroid cyst w/ tracheal deviation, AODM, HTN, LAUREN requiring nocturnal CPAP, hypercholesterolemia, gout, osteoporosis, anemia, pulmonary HTN. Ms. Ward underwent R TKA 09/08/22. Post-op course was complicated by anemia w/ Hgb 7.7. Patient later developed CHF requiring hospitalization 10/04/22-10/11/22 for airway support, blood transfusion and HD. Ms. Ward presented to dialysis 10/23/22. RN noted that she was in atrial fibrillation but hemodynamically stable otherwise. Unfortunately, she was not able to finish HD due to low BP and chest pain. She was then transferred to [facility]. ECG revealed atrial fibrillation w/ HR 118 bpm. She was given IV Metoprolol and started on Amiodarone therapy. Cardiology has completed an echocardiogram: LVEF 55%, mild MR, mild pHTN w/ PASP 42 mm Hg. She returned to the ER at [facility] yesterday with several days of palpitations and shortness of breath. She had increased her metoprolol from 50 to 75 but without improvement. In the ED, she was found to be in A-fib with RVR. Cardizem gtt was started and Juventino was admitted for additional evaluation and management. Allergies Allergy/AdvReac Type Severity Reaction Status Date / Time pollen extracts Allergy Mild sneezing, Verified 03/23/23 09:48 watery eyes Home Medications Medication Instructions Recorded Confirmed Type atorvastatin 40 mg tablet 40 mg PO QAM 11/10/18 05/16/23 History famotidine 20 mg tablet 20 mg PO AMHS 05/28/21 05/16/23 History lidocaine-prilocaine 2.5 %-2.5 % See Rx Instructions topical 05/28/21 05/16/23 History topical cream .COMPLEX nitroglycerin 0.4 mg sublingual 0.4 mg sublingual Q5M PRN Chest 05/28/21 05/16/23 History tablet (Nitrostat) Pain polyethylene glycol 3350 17 gram 17 g PO BID PRN Constipation 05/28/21 05/16/23 History oral powder packet (Miralax) triamcinolone acetonide 0.025 % 1 applic topical BID PRN Rash 05/28/21 05/16/23 History lotion fluticasone fur. 100 mcg-umeclid 1 inh inhalation QAM 10/14/21 05/16/23 History 62.5 mcg-vilant 25 mcg inhalat.powder (Trelegy Ellipta) albuterol sulfate 90 mcg/actuation 2 puff inhalation Q6 PRN Wheezing 01/26/22 05/16/23 History aerosol inhaler (Ventolin HFA) fluticasone propionate 50 2 spray intranasal QAM Allergy 01/26/22 05/16/23 History mcg/actuation nasal Symptoms spray,suspension ondansetron HCl 4 mg tablet 4 mg PO Q8 PRN Nausea 01/26/22 05/16/23 History sevelamer carbonate 800 mg tablet 1,600 mg PO TIDM 01/26/22 05/16/23 History (Renvela) metoprolol succinate 50 mg 50 mg PO BID 90 days #180 tabs 01/04/23 05/16/23 Rx tablet,extended release 24 hr pantoprazole 40 mg tablet,delayed 40 mg PO AMHS 05/16/23 05/16/23 History release tramadol 50 mg tablet 50 mg PO DAILY PRN Pain 05/16/23 05/16/23 History vit B complx, C-iron 8 mg-folic 1 tab PO DAILY 05/16/23 05/16/23 History acid 800 mcg-D3 1,000 unit-zinc tablet (ProRenal) warfarin 2.5 mg tablet 7.5 mg PO DIRECTED 05/16/23 05/16/23 History warfarin 5 mg tablet 5 mg PO DIRECTED 05/16/23 05/16/23 History Patient History Medical History Lumbosacral pain Lumbar radicular pain Right sided sciatica Left rotator cuff tear Encounter for pre-operative examination Anemia of chronic disease Bilateral primary osteoarthritis of knee Chronic anemia Aortic stenosis Mild aortic stenosis (ASHLI 1.3-1.4cm2, MG 15.3mmhg) per 03/2022 echo Osteoarthritis of knees, bilateral RSV (respiratory syncytial virus pneumonia) History of COVID-19 Most recent 10/2021 ([facility])- symptoms resolved AV fistula LUE Hyperlipidemia Hypertension Sleep apnea CPAP + 2L HS End-stage renal disease on hemodialysis MWF ([facility]) Asthma, moderate persistent GERD (gastroesophageal reflux disease) Chronic anemia Hx iron infusions Gout Diabetes mellitus diet controlled Surgical History History of cataract surgery History of lumbar surgery S/P arteriovenous (AV) fistula creation Status post biopsy of kidney kidney disease History of colonoscopy History of esophagogastroduodenoscopy (EGD) 10/2021 History of cholecystectomy History of tooth extraction all teeth removed History of oral surgery salivary gland surgery History of cardiac cath 2017 ([facility])- no stents H/O partial thyroidectomy History of appendectomy H/O: hysterectomy SANDRA BSO Family History Daughter Cancer Breast Daughter Cancer Breast Daughter Hypertension Daughter Hypertension Father Diabetes Hypertension Mother Hypertension Brother Diabetes Brother Diabetes Sister Diabetes Sister Diabetes Sister Hypertension Sister Hypertension Other No family history of adverse response to anesthesia Social History Smoking Status: Never smoker Second Hand Exposure: No; Do You Dip or Chew Tobacco: No; Tobacco Cessation Education Requested by Patient: No Hx Alcohol Use: No Hx Substance Use: No Preferred Language: Divehi Communication Ability: Effective Communication Ability Comment: daughter states her mother can read/write/understand angolan Near [employer] Lecturer Required: No Beliefs That Will Affect Care: None marital status: / Current Living Situation: Family Current Living Situation Comment: Lives with daughter Other Information That Helps Us Care for You: No Feels Safe at Home: Yes Safety Concerns: Feels Safe At This Time Assistive Devices: None Review of Systems Review of Systems: All systems reviewed & are unremarkable except as noted in HPI & below Cardiovascular: + dyspnea and + palpitations; no chest p ain (heviness) and no edema Physical Exam Constitutional: well developed and + frail appearing; no acute distress Eyes: no scleral abnormality and no corneal abnormality ENMT: Mouth: no oral mucosal abnormality and oral mucous membranes not dry Neck: normal visual inspection and trachea midline Respiratory: normal respiratory effort Auscultation: lungs clear to ausc ultation bilaterally and + rales Cardiovascular: Rate/Rhythm: + tachycardic and + irregularly irregular Heart Sounds: normal S1, normal S2 and + murmur Extremities: + AV fistula; no edema Musculoskeletal: Extremities: no cyanosis and no clubbing Skin: normal turgor; no jaundice Neurologic: Motor/Sensory: no tremor and no asterixis Psychiatric: Orientation: alert and oriented x 3 Results & Data Vital Signs (Past 12 Hours) Vital Signs Temp Pulse Resp BP Pulse Ox O2 Del Method O2 Flow Rate 05/17/23 07:00 36.8 C 120 H 14 118/84 95 Nasal Cannula 2 05/17/23 03:08 36.7 C 121 H 22 112/75 99 CPAP 05/16/23 23:11 36.4 C L 96 H 23 102/63 98 CPAP 05/16/23 22:15 Nasal Cannula 2 Laboratory Results Laboratory Results - last 24 hr 05/16/23 05/16/23 05/16/23 13:35 15:53 16:31 WBC 6.82 RBC 4.56 Hgb 11.5 L Hct 36.7 L MCV 80.5 MCH 25.2 MCHC 31.3 L RDW Std Deviation 43.9 RDW Coeff of Luis 15.4 H Plt Count 225 MPV 10.3 Immature Gran % (Auto) 0.1 Neut % (Auto) 64.0 Lymph % (Auto) 23.5 [place] % (Auto) 8.8 Eos % (Auto) 2.9 Baso % (Auto) 0.7 Neut # (Auto) 4.36 Lymph # (Auto) 1.60 [place] # (Auto) 0.60 H Eos # (Auto) 0.20 Baso # (Auto) 0.05 Immature Gran # (Auto) 0.01 Absolute Nucleated RBC 0.02 Nucleated RBC % (auto) 0.3 PT 27.2 H INR 2.6 H Sodium 140 Potassium 4.7 Chloride 96 L Carbon Dioxide 32 Anion Gap 12 H BUN 55 H Creatinine 6.55 H* Est Cr Clr Drug Dosing 6.6 Est GFR ( Amer) 6.5 Est GFR (Non-Af Amer) 5.6 BUN/Creatinine Ratio 8.4 L Glucose 98 Calcium 8.9 Phosphorus Magnesium 2.3 Total Bilirubin 0.4 AST 23 ALT 15 Alkaline Phosphatase 125 H Troponin I High Sens 40.9 H 42.9 H B-Natriuretic Peptide 2312 H Total Protein 7.4 Albumin 4.1 Globulin 3.3 Albumin/Globulin Ratio 1.2 Lipase 125 H Nasal Screen MRSA (PCR) SARS-CoV-2 (PCR) NEGATIVE Influenza Type A (PCR) Negative Influenza Type B (PCR) Negative RSV (RT-PCR) Negative 05/16/23 05/16/23 05/17/23 21:06 Unknown 05:59 WBC 7.22 RBC 4.33 Hgb 10.8 L Hct 34.4 L MCV 79.4 L MCH 24.9 L MCHC 31.4 L RDW Std Deviation 43.7 RDW Coeff of Luis 15.4 H Plt Count 198 MPV 9.8 Immature Gran % (Auto) Neut % (Auto) Lymph % (Auto) [place] % (Auto) Eos % (Auto) Baso % (Auto) Neut # (Auto) Lymph # (Auto) [place] # (Auto) Eos # (Auto) Baso # (Auto) Immature Gran # (Auto) Absolute Nucleated RBC 0.02 Nucleated RBC % (auto) 0.3 PT 28.5 H INR 2.8 H Sodium 139 Potassium 5.1 Chloride 97 L Carbon Dioxide 27 Anion Gap 15 H BUN 67 H Creatinine 8.22 H* D Est Cr Clr Drug Dosing 5.2 Est GFR ( Amer) 4.9 Est GFR (Non-Af Amer) 4.3 BUN/Creatinine Ratio 8.2 L Glucose 109 H Calcium 8.8 Phosphorus 6.5 H Magnesium 2.3 Total Bilirubin 0.4 AST 39 ALT 31 Alkaline Phosphatase 124 H Troponin I High Sens 57.5 H* D 58.7 H* B-Natriuretic Peptide Total Protein 6.6 Albumin 3.6 Globulin 3.0 Albumin/Globulin Ratio 1.2 Lipase Nasal Screen MRSA (PCR) Negative SARS-CoV-2 (PCR) Influenza Type A (PCR) Influenza Type B (PCR) RSV (RT-PCR) Diagnostic Findings XR chest 1V portable Comparison: Comparison is made to chest radiograph 10/25/2022 FINDINGS: No lines and tubes are seen. Cardiomegaly is noted. Pulmonary edema has improved from prior exam however prominent pulmonary vasculature is again seen. No evidence of pleural effusion or pneumothorax. A hiatal hernia is again seen. IMPRESSION: Cardiomegaly with pulmonary vascular congestion but no nicole pulmonary edema. ECG Additional Comments: Atrial flutter with 2:1 A-V conduction Pulmonary disease pattern Left anterior fascicular block Minimal voltage criteria for LVH, may be normal variant ( [place] product ) Abnormal ECG When compared with ECG of 25-OCT-2022 06:13, Atrial flutter has replaced Atrial fibrillation Vent. rate has increased BY 47 BPM PG Care Time/CCT Total # of Minutes Spent Total Time Spent with Patient: Total time spent is greater than 50% in coordination of care (as documented) at patient's floor/unit and/or counseling patient: Coding Level of Care Code 38644 IN/OBS CONSULT LVL 5,80M Diagnoses End-stage renal disease on hemodialysis N18.6; Z99.2 Rapid atrial fibrillation I48.91 Anemia D64.9 Anemia type: unspecified type Sleep apnea G47.30 (3) Anemia Anemia type: unspecified type Qualified Code(s): D64.9 - Anemia, unspecified
[2023-05-17] MEDS: PROMETHAZINE HCL 6.25 MG in SODIUM CHLORIDE 0.9% 50 ML IV PRN (09:18)
[2023-05-17] MEDS: FLUTICASONE FUROATE 100MCG 14 PUFFS/INHALER INH SCH (13:42)
[2023-05-17] MEDS: UMECLIDINIUM/VILANTEROL 62.5/25MCG 7 PUFFS/INHALER INH SCH (13:42)
[2023-05-17] MEDS: ATORVASTATIN 40 MG TAB PO SCH (13:57)
--- NOTE | 2023-05-17 15:23 | Hospitalist Progress Note ---
Date of Service May 17, 2023 Assessment & Plan (1) Atrial fibrillation with rapid ventricular response: (2) End-stage renal disease on hemodialysis: (3) Sleep apnea: (4) GERD (gastroesophageal reflux disease): (5) Asthma, moderate persistent: Plan 77-year-old female with history of ESRD on hemodialysis MWF, A-fib on metoprolol/Coumadin, LAUREN on CPAP, GERD/hiatal hernia on PPI/Pepcid, asthma on Trelegy who presented to the ED with shortness of breath, palpitations and di zziness and found to be in rapid A-fib/flutter. Atrial Fibrillation Atrial flutter Pt presented in atrial flutter/atrial fibrillation Was started on a cardizem drip in the ED, switched to amiodarone overnight Also on metoprolol succinate 50mg BID Anticoagulated with warfarin, INR therapeutic currently, continue Cardiology consulted appreciate recs -was scheduled for cardioversion on 05/16 but converted before procedure while at dialysis -continue with amiodarone, IV overnight with goal to transition to oral in AM -telemetry monitoring for at least 48hrs Continue to be monitor Elevated Troponin hs-trop elevated, trended from 40.9 to 58.7 currently EKG on admission noting atrial fibrillation with left anterior fascicular block as above Likely elevated in the setting of above Cardiomegaly HFpEF BNP elevated at 2312 Echos from 2022 reviewed, Mar echo noting Grade II diastolic dysfunction at that time Consider repeating echo, will defer to cardiology Continue to monitor volume status, pt requiring dialysis on M/W/F schedule. Last dialysis session on 05/16 Continue to monitor ESRD on dialysis MWF dialysis schedule Follows with [facility], consulted. Appreciate recs -s/p dialysis session on 05/16 -monitor volume status -renally dose meds -renal diet Continue sevelamer Anemia, microcytic Iron Def Anemia Hgb chronically low Has progressed from 11.5 to 10.8, slightly microcytic Iron panel, ferritin Added b12 and folate Supplement as needed Continue to monitor h/h with AM labs Elevated Lipase Lipase checked in the ED,elevated at 125 MRCP in 2020 noted in chart- noted enlarged pancreas at that time, enlarged pancreatic duct but no mass noted at that time. Will repeat/update CT abd/pelvis wo contrast due to kidney dysfunction Hyperglycemia Glucose elevated at 109 Pending AM [id number] Electrolyte abnormalities hyperphosphatemia- likely elevated in setting of ESRD with need for dialysis. Monito with AM labs LAUREN -cpap qhs, ordered Asthma symptoms controlled, continue home inhaler GERD/hiatal hernia continue home Pepcid and PPI twice daily CODE STATUS: Full code Diet: renal diet, fluid restriction DVT prophylaxis-full anticoagulated on Coumadin Dispo: PT/OT orders placed Admission and Anticipated Discharge Date Admission Date: May 16, 2023 Subjective Pt was seen laying in bed after she had spontaneously converted. Was resting comfortably. Denied acute concerns. Review of Systems Review of Systems: All systems reviewed & are unremarkable except as noted in Subjective Physical Exam Physical Exam: General: Alert, No acute distress Psych: Appropriate mood and affect HEENT: NC/AT CV: RRR Resp: Breath sounds clear bilaterally, no increased effort of breathing. Abdomen: Soft, nontender Results & Data Results & Data Vital Signs (Past 12 Hours) Vital Signs Temp Pulse Pulse Pulse Resp BP BP 05/17/23 15:17 36.7 C 65 18 103/63 05/17/23 12:55 36.7 C 62 110/63 05/17/23 12:30 59 L 106/61 05/17/23 12:00 127 H 122/77 05/17/23 11:30 126 H 133/91 05/17/23 11:00 126 H 137/89 05/17/23 10:30 119 H 117/86 05/17/23 10:00 123 H 128/93 05/17/23 09:30 113 H 131/75 05/17/23 09:15 36.7 C 119 H 05/17/23 08:00 120 H 05/17/23 07:00 36.8 C 120 H 14 118/84 Pulse Ox O2 Del Method O2 Flow Rate 05/17/23 15:17 94 Nasal Cannula 2.0 05/17/23 12:55 05/17/23 12:30 05/17/23 12:00 05/17/23 11:30 05/17/23 11:00 05/17/23 10:30 05/17/23 10:00 05/17/23 09:30 05/17/23 09:15 05/17/23 08:00 05/17/23 07:00 95 Nasal Cannula 2 Diagnostic Findings Chest X-Ray 05/16/23 13:21 XR chest 1V portable CLINICAL HISTORY: Chest pain, nonspecific TECHNIQUE: Single frontal radiograph of the chest was obtained. Comparison: Comparison is made to chest radiograph 10/25/2022 FINDINGS: No lines and tubes are seen. Cardiomegaly is noted. Pulmonary edema has improved from prior exam however prominent pulmonary vasculature is again seen. No evidence of pleural effusion or pneumothorax. A hiatal hernia is again seen. IMPRESSION: Cardiomegaly with pulmonary vascular congestion but no nicole pulmonary edema. ACT 112: Negative or not required by law. Electronically signed by: Maxx Jacobson M.D. 05/16/2023 1:59 PM
--- NOTE | 2023-05-17 17:10 | Cardiology Progress Note ---
Date of Service May 17, 2023 Assessment & Plan (1) Paroxysmal atrial flutter: (2) ESRD (end stage renal disease): (3) Shortness of breath: Admission and Anticipated Discharge Date Admission Date: May 16, 2023 Subjective Patient was seen and examined pre and postdialysis. Patient on presentation in atrial flutter with rapid ventricular response. During dialysis patient spontaneously converted to sinus rhythm Currently comfortable no acute shortness of breath or chest pain. No dizziness or lightheadedness. Review of Systems Review of Systems: All systems reviewed & are unremarkable except as noted in Subjective Physical Exam Constitutional: + ill appearing; no acute distress Eyes: PERRL, conjunctivae normal, anicteric sclerae ENMT: external ear and nose normal, oropharynx normal Neck: trachea midline, no thyromegaly Respiratory: Auscultation: + diminished lung sounds Cardiovascular: Rate/Rhythm: regular rate and regular rhythm Heart Sounds: normal S1 and normal S2 Extremities: + edema (Trace with stasis changes) Gastrointestinal (Abdomen): normal bowel sounds, soft, nontender, no hepatosplenomegaly Results & Data Vital Signs (Past 12 Hours) Vital Signs Temp Pulse Pulse Pulse Resp BP BP 05/17/23 15:17 36.7 C 65 18 103/63 05/17/23 12:55 36.7 C 62 110/63 05/17/23 12:30 59 L 106/61 05/17/23 12:00 127 H 122/77 05/17/23 11:30 126 H 133/91 05/17/23 11:00 126 H 137/89 05/17/23 10:30 119 H 117/86 05/17/23 10:00 123 H 128/93 05/17/23 09:30 113 H 131/75 05/17/23 09:15 36.7 C 119 H 05/17/23 08:00 120 H 05/17/23 07:00 36.8 C 120 H 14 118/84 Pulse Ox O2 Del Method O2 Flow Rate 05/17/23 15:17 94 Nasal Cannula 2.0 05/17/23 12:55 05/17/23 12:30 05/17/23 12:00 05/17/23 11:30 05/17/23 11:00 05/17/23 10:30 05/17/23 10:00 05/17/23 09:30 05/17/23 09:15 05/17/23 08:00 05/17/23 07:00 95 Nasal Cannula 2 Laboratory Results Laboratory Results - last 24 hr 05/16/23 05/16/23 05/16/23 15:53 16:31 21:06 WBC RBC Hgb Hct MCV MCH MCHC RDW Std Deviation RDW Coeff of Luis Plt Count MPV Absolute Nucleated RBC Nucleated RBC % (auto) PT INR Sodium Potassium Chloride Carbon Dioxide Anion Gap BUN Creatinine Est Cr Clr Drug Dosing Est GFR ( Amer) Est GFR (Non-Af Amer) BUN/Creatinine Ratio Glucose Calcium Phosphorus Magnesium Total Bilirubin AST ALT Alkaline Phosphatase Troponin I High Sens 42.9 H 57.5 H* D Total Protein Albumin Globulin Albumin/Globulin Ratio Nasal Screen MRSA (PCR) SARS-CoV-2 (PCR) NEGATIVE Influenza Type A (PCR) Negative Influenza Type B (PCR) Negative RSV (RT-PCR) Negative 05/16/23 05/17/23 Unknown 05:59 WBC 7.22 RBC 4.33 Hgb 10.8 L Hct 34.4 L MCV 79.4 L MCH 24.9 L MCHC 31.4 L RDW Std Deviation 43.7 RDW Coeff of Luis 15.4 H Plt Count 198 MPV 9.8 Absolute Nucleated RBC 0.02 Nucleated RBC % (auto) 0.3 PT 28.5 H INR 2.8 H Sodium 139 Potassium 5.1 Chloride 97 L Carbon Dioxide 27 Anion Gap 15 H BUN 67 H Creatinine 8.22 H* D Est Cr Clr Drug Dosing 5.2 Est GFR ( Amer) 4.9 Est GFR (Non-Af Amer) 4.3 BUN/Creatinine Ratio 8.2 L Glucose 109 H Calcium 8.8 Phosphorus 6.5 H Magnesium 2.3 Total Bilirubin 0.4 AST 39 ALT 31 Alkaline Phosphatase 124 H Troponin I High Sens 58.7 H* Total Protein 6.6 Albumin 3.6 Globulin 3.0 Albumin/Globulin Ratio 1.2 Nasal Screen MRSA (PCR) Negative SARS-CoV-2 (PCR) Influenza Type A (PCR) Influenza Type B (PCR) RSV (RT-PCR)
--- NOTE | 2023-05-17 17:16 | Cardiology Consultation ---
Date of Consultation May 17, 2023 Assessment & Plan (1) Paroxysmal atrial flutter: (2) ESRD (end stage renal disease): (3) Shortness of breath: Plan 77-year-old female with complex history as outlined above with recurrence of atrial arrhythmias and now atrial flutter with rapid ventricular response, 2-1 conduction Patient is spontaneously converted to sinus rhythm. Discussed with daughter and patient high likelihood of recurrence of arrhythmias, left atrial enlargement on echocardiogram, fluctuation in fluid status and electrolytes during dialysis Will continue IV amiodarone overnight convert to oral amiodarone in a.m. check EKG in a.m. May ultimately reduce metoprolol dosing depending on heart rate Maintain telemetry additional 48 hours to assess QT interval and arrhythmias Daughter agreeable Additional options discussed including AV junction ablation with pacemaker if atrial arrhythmias become persistent with rapid response History of Present Illness Reason for Consultation: Atrial flutter with rapid ventricular response Requesting Physician: Dr. Siegel Attending Physician: Ирина Siegel MD History of Present Illness Patient is a 77-year-old female with ongoing concerns 1. Paroxysmal A-fib; CHADS2-VASC score 4 (age, female, HTN) 2. Diastolic dysfunction 3. ESRD on dialysis 4. Nonrheumatic aortic valve stenosis 5. Nonrheumatic mitral valve regurgitation History obtained from patient, patient's daughter and records. Patient presented this admission noting symptoms of dyspnea and tachypalpitations for several days duration with worsening fatigue and shortness of breath. Patient presented to the emergency room where she was found to be in atrial flutter with rapid ventricular response. She has begun on IV amiodarone infusion Evaluated earlier today and referred for dialysis during which patient spontaneously converted to sinus rhythm. Currently without current complaints feels better after dialysis. No chest pains or discomfort. No bradycardia arrhythmias on telemetry Allergies Allergy/AdvReac Type Severity Reaction Status Date / Time pollen extracts Allergy Mild sneezing, Verified 03/23/23 09:48 watery eyes Home Medications Medication Instructions Recorded Confirmed Type atorvastatin 40 mg tablet 40 mg PO QAM 11/10/18 05/16/23 History famotidine 20 mg tablet 20 mg PO AMHS 05/28/21 05/16/23 History lidocaine-prilocaine 2.5 %-2.5 % See Rx Instructions topical 05/28/21 05/16/23 History topical cream .COMPLEX nitroglycerin 0.4 mg sublingual 0.4 mg sublingual Q5M PRN Chest 05/28/21 05/16/23 History tablet (Nitrostat) Pain polyethylene glycol 3350 17 gram 17 g PO BID PRN Constipation 05/28/21 05/16/23 History oral powder packet (Miralax) triamcinolone acetonide 0.025 % 1 applic topical BID PRN Rash 05/28/21 05/16/23 History lotion fluticasone fur. 100 mcg-umeclid 1 inh inhalation QAM 10/14/21 05/16/23 History 62.5 mcg-vilant 25 mcg inhalat.powder (Trelegy Ellipta) albuterol sulfate 90 mcg/actuation 2 puff inhalation Q6 PRN Wheezing 01/26/22 05/16/23 History aerosol inhaler (Ventolin HFA) fluticasone propionate 50 2 spray intranasal QAM Allergy 01/26/22 05/16/23 History mcg/actuation nasal Symptoms spray,suspension ondansetron HCl 4 mg tablet 4 mg PO Q8 PRN Nausea 01/26/22 05/16/23 History sevelamer carbonate 800 mg tablet 1,600 mg PO TIDM 01/26/22 05/16/23 History (Renvela) metoprolol succinate 50 mg 50 mg PO BID 90 days #180 tabs 01/04/23 05/16/23 Rx tablet,extended release 24 hr pantoprazole 40 mg tablet,delayed 40 mg PO AMHS 05/16/23 05/16/23 History release tramadol 50 mg tablet 50 mg PO DAILY PRN Pain 05/16/23 05/16/23 History vit B complx, C-iron 8 mg-folic 1 tab PO DAILY 05/16/23 05/16/23 History acid 800 mcg-D3 1,000 unit-zinc tablet (ProRenal) warfarin 2.5 mg tablet 7.5 mg PO DIRECTED 05/16/23 05/16/23 History warfarin 5 mg tablet 5 mg PO DIRECTED 05/16/23 05/16/23 History Patient History Medical History Lumbosacral pain Lumbar radicular pain Right sided sciatica Left rotator cuff tear Encounter for pre-operative examination Anemia of chronic disease Bilateral primary osteoarthritis of knee Chronic anemia Aortic stenosis Mild aortic stenosis (ASHLI 1.3-1.4cm2, MG 15.3mmhg) per 03/2022 echo Osteoarthritis of knees, bilateral RSV (respiratory syncytial virus pneumonia) History of COVID-19 Most recent 10/2021 ([facility])- symptoms resolved AV fistula LUE Hyperlipidemia Hypertension Sleep apnea CPAP + 2L HS End-stage renal disease on hemodialysis MWF ([facility]) Asthma, moderate persistent GERD (gastroesophageal reflux disease) Chronic anemia Hx iron infusions Gout Diabetes mellitus diet controlled Surgical History History of cataract surgery History of lumbar surgery S/P arteriovenous (AV) fistula creation Status post biopsy of kidney kidney disease History of colonoscopy History of esophagogastroduodenoscopy (EGD) 10/2021 History of cholecystectomy History of tooth extraction all teeth removed History of oral surgery salivary gland surgery History of cardiac cath 2017 ([facility])- no stents H/O partial thyroidectomy History of appendectomy H/O: hysterectomy SANDRA BSO Family History Daughter Cancer Breast Daughter Cancer Breast Daughter Hypertension Daughter Hypertension Father Diabetes Hypertension Mother Hypertension Brother Diabetes Brother Diabetes Sister Diabetes Sister Diabetes Sister Hypertension Sister Hypertension Other No family history of adverse response to anesthesia Social History Smoking Status: Never smoker Second Hand Exposure: No; Do You Dip or Chew Tobacco: No; Tobacco Cessation Education Requested by Patient: No Hx Alcohol Use: No Hx Substance Use: No Preferred Language: Ghanaian Communication Ability: Effective Communication Ability Comment: daughter states her mother can read/write/understand syrian Sorter Operator Required: No Beliefs That Will Affect Care: None marital status: / Current Living Situation: Family Current Living Situation Comment: Lives with daughter Other Information That Helps Us Care for You: No Feels Safe at Home: Yes Safety Concerns: Feels Safe At This Time Assistive Devices: Cane, Oxygen - at Night, Oxygen - Continuous and Walker Review of Systems Review of Systems: All systems reviewed & are unremarkable except as noted in HPI & below Results & Data Vital Signs (Past 12 Hours) Vital Signs Temp Pulse Pulse Pulse Resp BP BP 05/17/23 15:17 36.7 C 65 18 103/63 05/17/23 12:55 36.7 C 62 110/63 05/17/23 12:30 59 L 106/61 05/17/23 12:00 127 H 122/77 05/17/23 11:30 126 H 133/91 05/17/23 11:00 126 H 137/89 05/17/23 10:30 119 H 117/86 05/17/23 10:00 123 H 128/93 05/17/23 09:30 113 H 131/75 05/17/23 09:15 36.7 C 119 H 05/17/23 08:00 120 H 05/17/23 07:00 36.8 C 120 H 14 118/84 Pulse Ox O2 Del Method O2 Flow Rate 05/17/23 15:17 94 Nasal Cannula 2.0 05/17/23 12:55 05/17/23 12:30 05/17/23 12:00 05/17/23 11:30 05/17/23 11:00 05/17/23 10:30 05/17/23 10:00 05/17/23 09:30 05/17/23 09:15 05/17/23 08:00 05/17/23 07:00 95 Nasal Cannula 2 Laboratory Results Laboratory Results - last 24 hr 05/16/23 05/16/23 05/16/23 15:53 21:06 Unknown WBC RBC Hgb Hct MCV MCH MCHC RDW Std Deviation RDW Coeff of Luis Plt Count MPV Absolute Nucleated RBC Nucleated RBC % (auto) PT INR Sodium Potassium Chloride Carbon Dioxide Anion Gap BUN Creatinine Est Cr Clr Drug Dosing Est GFR ( Amer) Est GFR (Non-Af Amer) BUN/Creatinine Ratio Glucose Calcium Phosphorus Magnesium Total Bilirubin AST ALT Alkaline Phosphatase Troponin I High Sens 57.5 H* D Total Protein Albumin Globulin Albumin/Globulin Ratio Nasal Screen MRSA (PCR) Negative SARS-CoV-2 (PCR) NEGATIVE Influenza Type A (PCR) Negative Influenza Type B (PCR) Negative RSV (RT-PCR) Negative 05/17/23 05:59 WBC 7.22 RBC 4.33 Hgb 10.8 L Hct 34.4 L MCV 79.4 L MCH 24.9 L MCHC 31.4 L RDW Std Deviation 43.7 RDW Coeff of Luis 15.4 H Plt Count 198 MPV 9.8 Absolute Nucleated RBC 0.02 Nucleated RBC % (auto) 0.3 PT 28.5 H INR 2.8 H Sodium 139 Potassium 5.1 Chloride 97 L Carbon Dioxide 27 Anion Gap 15 H BUN 67 H Creatinine 8.22 H* D Est Cr Clr Drug Dosing 5.2 Est GFR ( Amer) 4.9 Est GFR (Non-Af Amer) 4.3 BUN/Creatinine Ratio 8.2 L Glucose 109 H Calcium 8.8 Phosphorus 6.5 H Magnesium 2.3 Total Bilirubin 0.4 AST 39 ALT 31 Alkaline Phosphatase 124 H Troponin I High Sens 58.7 H* Total Protein 6.6 Albumin 3.6 Globulin 3.0 Albumin/Globulin Ratio 1.2 Nasal Screen MRSA (PCR) SARS-CoV-2 (PCR) Influenza Type A (PCR) Influenza Type B (PCR) RSV (RT-PCR) Diagnostic Findings Echocardiogram 04/22/2023 There was normal sinus rhythm during the examination. The LV wall thickness is moderately increased (concentric). The qualitative LV ejection fraction is 55-59% (normal). The left atrium is severely enlarged. The left ventricular diastolic function is moderately abnormal (grade II). The aortic valve is mildly calcified. [id number] aortic valve stenosis is present with peak continuous-wave Doppler velocity of 3.1 meters/second, mean gradient 17 mm Hg. Mild aortic valve regurgitation is present. Mild mitral regurgitation is present. There is moderate mitral annular calcification. Mild tricuspid regurgitation is present. Compared to the previous study dated 08/04/2022, there has been a subtle progression in the severity of the aortic stenosis.
[2023-05-17] MEDS: IPRATROPIUM BROMIDE NEB SOLN 0.02% 0.5MG/2.5ML VIAL INH STA (22:56)
[2023-05-17] MEDS: LEVALBUTEROL 1.25 MG/3 ML NEB NEB STA (22:56)
--- NOTE | 2023-05-17 23:35 | Communication Note ---
Date of Service: May 17, 2023 Notified by RN of patient family concerns regarding patient SOB symptoms from 5 PM today. Chest x-ray as per my interpretation worsening pulmonary congestion with pleural effusions. Patient not in respiratory distress as per RN. Comfortable on BiPAP. Dr. Tay (Nephrology) updated of issue over the phone given patient history of pulmonary congestion unfortunately resulting in endotracheal intubation last 09/2022 due to lack of 24-hour dialysis services at [facility]. He recommended transfer to tertiary center with emergent dialysis capability. Call placed to [facility] after discussion with patient's daughter over the phone. No regular hospital beds available as per hospitalist on-call (Dr. Heller). As ICU beds at [facility] were available, I spoke to [facility] coat agent on-call (Dr. Tomlin) who was in the opinion that [facility] science manager will not do emergent dialysis on patient based on information given. Patient family came to hospital to check on patient and were given update at bedside. They are agreeable to keeping patient at [facility] for now because patient looked comfortable and did not want to transfer.
[2023-05-18 01:36] LABS: Base Excess ABG 3.6 mEq/L (-9-1.8); HCO3 ABG 30 mmol/L (19-24); Oxygen Saturation ABG 96.9 % (90-95); PCO2 ABG 52 mmHg (35-46); PO2 ABG 93 mmHg (80-95); pH ABG 7.37 (7.35-7.45)
[2023-05-18 01:42] LABS: Allen Test Pos (Pos)
[2023-05-18] MEDS: FUROSEMIDE 40 MG/4 ML VIAL IV ONE (02:00)
--- NOTE | 2023-05-18 06:38 | XRay Report ---
XR chest 1V portable CLINICAL HISTORY: Shortness of breath. COMPARISON STUDY: Chest CT October 26, 2022. Chest radiograph May 16, 2023. FINDINGS: There is no pneumothorax. Small bilateral pleural effusions are present. Pulmonary edema crisostomo s developed. A hiatal hernia is again noted. Cardiac mediastinal silhouette is unchanged. Skinfold pr oject over the chest. IMPRESSION: 1. Interval development of pulmonary edema. 2. Small bilateral pleural effusions. ACT 112: Negative or not required by law. Electronically signed by: Bright Duran M.D. 05/18/2023 6:37 AM
[2023-05-18 06:41] LABS: Basophils # (auto) 0.06 K/uL (0.00-0.20); Basophils % (auto) 0.9 %; Eosinophils % (auto) 2.9 %; Hematocrit (blood only) 32.9 % (37.0-47.0); Hemoglobin 10.1 g/dl (12.0-16.0); Immature Granulocytes # (auto) 0.02 K/uL (0.01-0.20); Immature Granulocytes % (auto) 0.3 %; Lymphocytes % (auto) 17.2 %; Mean Corpuscular Hemoglobin 25.1 pg (25.0-34.0); Mean Corpuscular Hgb Conc 30.7 g/dL (32.0-36.0); Mean Corpuscular Volume 81.8 fL (80.0-100.0); Mean Platelet Volume 10.2 fL (9.4-12.4); Monocytes # (auto) 0.51 K/uL (0.11-0.59); Monocytes % (auto) 7.3 %; Neutrophils # (auto) 4.97 K/uL (1.40-6.50); Neutrophils % (auto) 71.4 %; Platelet Count 169 K/uL (130-400); RDW Coefficient of Variation 15.6 % (11.5-14.5); RDW Standard Deviation 44.9 fL (36.4-46.3); Red Blood Count 4.02 M/uL (4.20-5.40); White Blood Count 6.96 K/ul (4.8-10.8)
[2023-05-18 07:05] LABS: Albumin Globulin Ratio 1.2 (0.9-2); Albumin Level 3.7 gm/dl (3.4-5.0); BUN Creatinine Ratio 6.6 (10-20); Bilirubin,Total 0.5 mg/dl (0.2-1.0); Calcium 8.9 mg/dl (8.6-10.3); Chol HDL Ratio 2.1 (0-5); Creatinine Clr Calc Pharmacy 6.9 ml/min; Est GFR (African American) 6.9 ml/min; Est GFR (Non-African American) 5.9 ml/min; Magnesium 2.1 mg/dl (1.7-2.4); Phosphorus 5.2 mg/dl (2.5-4.9); Potassium 4.8 mmol/L (3.5-5.1); Total Protein 6.7 gm/dl (6.0-8.3)
[2023-05-18 07:23] LABS: Vitamin B12 524 pg/ml (180-914)
[2023-05-18 07:24] LABS: Folate (Folic Acid),Ser orPlas > 22.30 ng/ml (>5.38)
[2023-05-18] MEDS: AMIODARONE 200 MG TAB PO SCH (07:43)
[2023-05-18 07:47] LABS: INR 3.4 (0.9-1.1); Prothrombin Time 34.9 Seconds (9.0-12.0)
--- NOTE | 2023-05-18 10:30 | Nephrology Progress Note ---
Date of Service May 18, 2023 Assessment & Plan (1) End-stage renal disease on hemodialysis: Plan: * HD MWF * Completed treatment yesterday with adequate clearance. UF limited due to rapid atrial fibrillation. * Orders for HD this AM entered into the EHR and reviewed with literacy coordinator * Will attempt UF as tolerated * Ms. Ward was seen and evaluated during HD this morning * Volume status acceptable * AVF functioning well * Qb at goal * Renal diet and 1.2 L daily fluid restriction * Medications are dosed appropriately for kidney function (2) Rapid atrial fibrillation: Plan: * Converted to sinus rhythm with amiodarone. * Rate acceptable. * No symptoms. (3) Anemia: Plan: * Hgb is within target 10-11 g/dL range * Venofer 100 mg IV with HD this AM (4) Sleep apnea: Plan: * Nocturnal CPAP as per primary service Admission and Anticipated Discharge Date Admission Date: May 16, 2023 Subjective Converted to sinus rhythm yesterday afternoon. Denies chest pains or palpitations this AM. I was contacted by Dr. Aceves twice overnight regarding reported respiratory distress. Symptoms improved with BIPAP. CXR demonstrating increased pulmonary edema. Arrangements were made for dialysis to start at 8 AM. Juventino arrived at the dialysis unit at 10:15. She was resting comfortably in bed upon arrival. She reports feeling tired and weak. She denies significant dyspnea. Review of Systems Review of Systems: All systems reviewed & are unremarkable except as noted in HPI & below Physical Exam Constitutional: well developed and + frail appearing; no acute distress Eyes: no scleral abnormality and no corneal abnormality ENMT: Mouth: no oral mucosal abnormality and oral mucous membranes not dry Neck: normal visual inspection and trachea midline Respiratory: normal respiratory effort Auscultation: lungs clear to auscultation bilaterally and + rales Cardiovascular: Rate/Rhythm: regular rate and regular rhythm Heart Sounds: normal S1, normal S2 and + murmur Extremities: + AV fistula; no edema Musculoskeletal: Extremities: no cyanosis and no clubbing Skin: normal turgor; no jaundice Neurologic: Motor/Sensory: no tremor and no asterixis Psychiatric: Orientation: alert and oriented x 3 Results & Data Vital Signs (Past 12 Hours) Vital Signs Temp Pulse Pulse Resp BP Pulse Ox O2 Del Method 05/18/23 08:00 63 05/18/23 08:00 Nasal Cannula 05/18/23 07:59 36.8 C 64 18 117/74 100 Nasal Cannula 05/18/23 02:48 37.0 C 63 18 112/60 100 CPAP 05/18/23 00:26 37.0 C 62 22 122/63 100 BiPAP 05/17/23 23:16 71 05/17/23 22:56 18 97 Nasal Cannula O2 Flow Rate 05/18/23 08:00 05/18/23 08:00 2 05/18/23 07:59 2 05/18/23 02:48 05/18/23 00:26 2 05/17/23 23:16 05/17/23 22:56 3 Laboratory Results Laboratory Results - last 24 hr 05/18/23 05/18/23 01:15 06:18 WBC 6.96 RBC 4.02 L Hgb 10.1 L Hct 32.9 L MCV 81.8 MCH 25.1 MCHC 30.7 L RDW Std Deviation 44.9 RDW Coeff of Luis 15.6 H Plt Count 169 MPV 10.2 Immature Gran % (Auto) 0.3 Neut % (Auto) 71.4 Lymph % (Auto) 17.2 [place] % (Auto) 7.3 Eos % (Auto) 2.9 Baso % (Auto) 0.9 Neut # (Auto) 4.97 Lymph # (Auto) 1.20 [place] # (Auto) 0.51 Eos # (Auto) 0.20 Baso # (Auto) 0.06 Immature Gran # (Auto) 0.02 PT 34.9 H INR 3.4 H ABG pH 7.37 ABG pCO2 52 H ABG pO2 93 ABG HCO3 30 H ABG O2 Saturation 96.9 H ABG Base Excess 3.6 H Iglesia Test Pos Oxygen Given 2L Sodium 140 Potassium 4.8 Chloride 101 Carbon Dioxide 29 Anion Gap 10 BUN 41 H D Creatinine 6.23 H* D Est Cr Clr Drug Dosing 6.9 Est GFR ( Amer) 6.9 Est GFR (Non-Af Amer) 5.9 BUN/Creatinine Ratio 6.6 L Glucose 101 H Estimat Average Glucose Pending Hemoglobin A1c Pending Calcium 8.9 Phosphorus 5.2 H Magnesium 2.1 Iron 27 L TIBC 195 L Unsaturated IBC 168 Transferrin % Sat 14 L Ferritin 2839.0 H Total Bilirubin 0.5 AST 26 ALT 27 Alkaline Phosphatase 106 H Total Protein 6.7 Albumin 3.7 Globulin 3.0 Albumin/Globulin Ratio 1.2 Triglycerides 94 Cholesterol 107 LDL Cholesterol, Calc 38 VLDL Cholesterol, Calc 19 HDL Cholesterol 50 Cholesterol/HDL Ratio 2.1 Vitamin B12 524 Folate > 22.30 PG Care Time/CCT Total # of Minutes Spent Total Time Spent with Patient: Total time spent is greater than 50% in coordination of care (as documented) at patient's floor/unit and/or counseling patient: Coding Level of Care Code 70546 SUB INP/OBS CARE 3/50MIN Diagnoses End-stage renal disease on hemodialysis N18.6; Z99.2 Rapid atrial fibrillation I48.91 Anemia D64.9 Anemia type: unspecified type Sleep apnea G47.30 (3) Anemia Anemia type: unspecified type Qualified Code(s): D64.9 - Anemia, unspecified
[2023-05-18] MEDS: IRON SUCROSE 100 MG in SYRINGE 0 ML IV ONE (10:43)
--- NOTE | 2023-05-18 11:03 | CT Scan Report ---
CT abd pelvis wo con CLINICAL HISTORY: elevated lipase TECHNIQUE: Helical axial images of the abdomen and pelvis were obtained. Automated dose lowering tech niques and/or adjustment according to patient size were utilized for this exam. This exam was perfor med without intravenous contrast. CT DOSE: 818.2 mGy.cm COMPARISON: Comparison is made to CT abdomen pelvis 11/17/2011 FINDINGS: Lower chest: Biatrial enlargement is seen with cardiomegaly. Small right pleural effusion. Bilateral atelectasis is seen. Liver: Unremarkable. No focal lesions are seen. Gallbladder and biliary tree: The gallbladder is contracted. There is dilation of the distal duct to 19 mm tiny focus of air noted. The common bile duct measures up to 11 mm in diameter. Pancreas: No peripancreatic stranding. Spleen: Unremarkable. Adrenals: Unremarkable. Kidneys and ureters: Kidneys are diminutive with bilateral renal cysts noted. Bladder: Limited evaluation due to underdistention. Reproductive organs: Unremarkable. Bowel: Diverticulosis is seen without evidence of diverticulitis. A moderate hiatal hernia is seen. Lymph nodes Retroperitoneal: Unremarkable. Pelvic: Unremarkable. Mesenteric: Unremarkable. Peritoneum: Normal. Vessels: Atherosclerotic calcifications are seen. Abdominal wall: A fat-containing umbilical hernia is seen. Bones: Degenerative changes in the visualized spine. IMPRESSION: 1. No evidence of pancreatitis in this patient with elevated lipase. However, there is new dilation of the distal common bile duct with a focus of air. Findings may result from sphincter of Oddi dysfun ction or less likely choledocholithiasis. 2. Moderate hiatal hernia. 3. Small right pleural effusion bibasilar atelectasis. ACT 112: Negative or not required by law. Electronically signed by: Maxx Jacobson M.D. 05/18/2023 11:01 AM
--- NOTE | 2023-05-18 11:57 | Hospitalist Progress Note ---
Date of Service May 18, 2023 Assessment & Plan (1) Atrial fibrillation with rapid ventricular response: (2) End-stage renal disease on hemodialysis: (3) Sleep apnea: (4) GERD (gastroesophageal reflux disease): (5) Asthma, moderate persistent: Plan 77-year-old female with history of ESRD on hemodialysis MWF, A-fib on metoprolol/Coumadin, LAUREN on CPAP, GERD/hiatal hernia on PPI/Pepcid, asthma on Trelegy who presented to the ED with shortness of breath, palpitations and di zziness and found to be in rapid A-fib/flutter. Atrial Fibrillation Atrial flutter Pt presented in atrial flutter/atrial fibrillation Was started on a cardizem drip in the ED, switched to IV amiodarone overnight after admission Was also on metoprolol succinate 50mg BID, has since been transitioned to metoprolol succinate 25mg BID by Cardiology Anticoagulated with warfarin, INR now supratherapeutic currently, holding home warfarin, Recheck INR in AM and resume as able. Cardiology consulted appreciate recs -was scheduled for cardioversion on 05/16 but converted before procedure while at dialysis -continue with po amiodarone at this time -telemetry monitoring for at least 48hrs from the Continue to be monitor Elevated Troponin Demand Ischemia hs-trop elevated, trended from 40.9 to 58.7 EKG on admission noting atrial fibrillation with left anterior fascicular block as above Likely elevated in the setting of above Cardiomegaly HFpEF BNP elevated at 2312 Echos from 2022 reviewed, Mar echo noting Grade II diastolic dysfunction at that time Consider repeating echo, will defer to cardiology Continue to monitor volume status, pt requiring dialysis on M/W/F schedule. Dialysis sessions so far this admission on 05/16, 05/17 Continue to monitor ESRD on dialysis MWF dialysis schedule Follows with [facility] [place] Nephrology, consulted. Appreciate recs -s/p dialysis session on 05/16 -repeat session on 05/17 as pt had pulmonary edema overnight -monitor volume status -renally dose meds -renal diet Continue sevelamer Anemia, microcytic Iron Def Anemia Hgb chronically low Has progressed from 11.5 to ~10, slightly microcytic Iron panel, ferritin, iron low S/p IV Venofer by Nephrology on 05/17 B12 and folate wnl Supplement as needed Continue to monitor h/h with AM labs Elevated Lipase Possible Sphincter of Oddi Dysfunction vs. Choledocholithiasis Lipase checked in the ED,elevated at 125 MRCP in 2020 noted in chart- noted enlarged pancreas at that time, enlarged pancreatic duct but no mass noted at that time. Repeat/update CT abd/pelvis wo contrast completed- noted "No evidence of pancreatitis in this patient with elevated lipase. However, there is new dilation of the distal common bile duct with a focus of air. Findings may result from sphincter of Oddi dysfunction or less likely choledocholithiasis." Liver enzymes have been wnl except for decreasing alk phos Pt asymptomatic, no abd tenderness, per daughter has hiatal hernia that gives her chronic N/V/decreased appetite Discussed with daughter- would like copies of MRCP in [address] abd/pelvis and would like to consider further imaging but will defer to current cardiac/renal acuity Consult GI on 05/18 for further recs. Hyperglycemia Glucose elevated Pending AM hgba1c Electrolyte abnormalities hyperphosphatemia- likely elevated in setting of ESRD with need for dialysis. Monitor with AM labs, improving LAUREN -cpap qhs, ordered Asthma symptoms controlled, continue home inhaler GERD/hiatal hernia continue home Pepcid and PPI twice daily CODE STATUS: Full code Diet: renal diet, fluid restriction DVT prophylaxis-on Coumadin, currently supratherapuetic Dispo: PT/OT orders placed Daughter who is a physician was called and updated the evening of 05/18/23. Admission and Anticipated Discharge Date Admission Date: May 16, 2023 Subjective Pt with episode overnight, developed pulmonary edema, pleural effusions. Required bipap use overnight. Per nursing, stopped using it around 6AM. Had additional session of dialysis today. Pt was seen in the AM before dialysis. Was on RA at that time, denied acute concerns. Daughter updated in the evening. Would like further imaging due to the noted changes on CT abd/pelvis. Review of Systems Review of Systems: All systems reviewed & are unremarkable except as noted in Subjective Physical Exam Physical Exam: General: Alert, No acute distress Psych: Appropriate mood and affect HEENT: NC/AT CV: RRR Resp: Breath sounds clear bilaterally, no increased effort of breathing. Abdomen: Soft, nontender Results & Data Results & Data Vital Signs (Past 12 Hours) Vital Signs Temp Pulse Pulse Resp BP BP Pulse Ox 05/18/23 11:30 56 L 102/54 L 05/18/23 11:00 59 L 103/58 L 05/18/23 10:30 59 L 104/61 05/18/23 10:25 60 105/55 L 05/18/23 10:18 36.8 C 63 05/18/23 08:00 63 05/18/23 08:00 05/18/23 07:59 36.8 C 64 18 117/74 100 05/18/23 02:48 37.0 C 63 18 112/60 100 05/18/23 00:26 37.0 C 62 22 122/63 100 O2 Del Method O2 Flow Rate 05/18/23 11:30 05/18/23 11:00 05/18/23 10:30 05/18/23 10:25 05/18/23 10:18 05/18/23 08:00 05/18/23 08:00 Nasal Cannula 2 05/18/23 07:59 Nasal Cannula 2 05/18/23 02:48 CPAP 05/18/23 00:26 BiPAP 2 Diagnostic Findings Chest X-Ray 05/16/23 13:21 XR chest 1V portable CLINICAL HISTORY: Chest pain, nonspecific TECHNIQUE: Single frontal radiograph of the chest was obtained. Comparison: Comparison is made to chest radiograph 10/25/2022 FINDINGS: No lines and tubes are seen. Cardiomegaly is noted. Pulmonary edema has improved from prior exam however prominent pulmonary vasculature is again seen. No evidence of pleural effusion or pneumothorax. A hiatal hernia is again seen. IMPRESSION: Cardiomegaly with pulmonary vascular congestion but no nicole pulmonary edema. ACT 112: Negative or not required by law. Electronically signed by: Maxx Jacobson M.D. 05/16/2023 1:59 PM Chest X-Ray 05/17/23 22:35 XR chest 1V portable CLINICAL HISTORY: Shortness of breath. COMPARISON STUDY: Chest CT October 26, 2022. Chest radiograph May 16, 2023. FINDINGS: There is no pneumothorax. Small bilateral pleural effusions are present. Pulmonary edema has developed. A hiatal hernia is again noted. Cardiac mediastinal silhouette is unchanged. Skinfold project over the chest. IMPRESSION: 1. Interval development of pulmonary edema. 2. Small bilateral pleural effusions. ACT 112: Negative or not required by law. Electronically signed by: rBight Duran M.D. 05/18/2023 6:37 AM Abdomen/Pelvis CT 05/18/23 08:00 CT abd pelvis wo con CLINICAL HISTORY: elevated lipase TECHNIQUE: Helical axial images of the abdomen and pelvis were obtained. Automated dose lowering techniques and/or adjustment according to patient size were utilized for this exam. This exam was performed without intravenous contrast. CT DOSE: 818.2 mGy.cm COMPARISON: Comparison is made to CT abdomen pelvis 11/17/2011 FINDINGS: Lower chest: Biatrial enlargement is seen with cardiomegaly. Small right pleural effusion. Bilateral atelectasis is seen. Liver: Unremarkable. No focal lesions are seen. Gallbladder and biliary tree: The gallbladder is contracted. There is dilation of the distal duct to 19 mm tiny focus of air noted. The common bile duct measures up to 11 mm in diameter. Pancreas: No peripancreatic stranding. Spleen: Unremarkable. Adrenals: Unremarkable. Kidneys and ureters: Kidneys are diminutive with bilateral renal cysts noted. Bladder: Limited evaluation due to underdistention. Reproductive organs: Unremarkable. Bowel: Diverticulosis is seen without evidence of diverticulitis. A moderate hiatal hernia is seen. Lymph nodes Retroperitoneal: Unremarkable. Pelvic: Unremarkable. Mesenteric: Unremarkable. Peritoneum: Normal. Vessels: Atherosclerotic calcifications are seen. Abdominal wall: A fat-containing umbilical hernia is seen. Bones: Degenerative changes in the visualized spine. IMPRESSION: 1. No evidence of pancreatitis in this patient with elevated lipase. However, there is new dilation of the distal common bile duct with a focus of air. Findings may result from sphincter of Oddi dysfunction or less likely choledocholithiasis. 2. Moderate hiatal hernia. 3. Small right pleural effusion bibasilar atelectasis. ACT 112: Negative or not required by law. Electronically signed by: Maxx Jacobson M.D. 05/18/2023 11:01 AM
--- NOTE | 2023-05-18 13:31 | Electrocardiogram Report ---
Test Reason : Blood Pressure : / mmHG Vent. Rate : 057 BPM Atrial Rate : 057 BPM P-R Int : 198 ms QRS Dur : 122 ms QT Int : 494 ms P-R-T Axes : 049 -49 007 degrees QTc Int : 480 ms Sinus bradycardia with Premature supraventricular complexes Left anterior fascicular block Left ventricular hypertrophy with QRS widening Nonspecific ST and T wave abnormality Abnormal ECG When compared with ECG of 16-MAY-2023 13:13, Significant changes have occurred Confirmed by Florentin Flores ([id number]) on 05/18/2023 1:31:07 PM Referred By: REFERRED SELF Confirmed By:Florentin Flores
--- NOTE | 2023-05-18 13:49 | Cardiology Progress Note ---
Date of Service May 18, 2023 Assessment & Plan (1) Paroxysmal atrial flutter: (2) ESRD (end stage renal disease): (3) Shortness of breath: Plan 77-year-old female with complex history as outlined above with recurrence of atrial arrhythmias and now atrial flutter with rapid ventricular response, 2-1 conduction Patient is spontaneously converted to sinus rhythm. Discussed with daughter and patient high likelihood of recurrence of arrhythmias, left atrial enlargement on echocardiogram, fluctuation in fluid status and electrolytes during dialysis Will continue IV amiodarone overnight convert to oral amiodarone in a.m. check EKG in a.m. May ultimately reduce metoprolol dosing depending on heart rate Maintain telemetry additional 48 hours to assess QT interval and arrhythmias Daughter agreeable Additional options discussed including AV junction ablation with pacemaker if atrial arrhythmias become persistent with rapid response 05/18/2023 Tolerating amiodarone with mild bradycardia. Will reduce metoprolol succinate to 25 mg twice per day continue amiodarone 200mg 3 times per day EKG in a.m. Admission and Anticipated Discharge Date Admission Date: May 16, 2023 Subjective Patient briefly examined in dialysis. Chart reviewed telemetry reviewed 2 short brief salvos of atrial tachycardia last evening but no further atrial fibrillation. Rate controlled. Tolerating amiodarone with mild bradycardia Review of Systems Review of Systems: All systems reviewed & are unremarkable except as noted in Subjective Results & Data Vital Signs (Past 12 Hours) Vital Signs Temp Pulse Pulse Resp BP BP Pulse Ox 05/18/23 13:00 59 L 94/47 L 05/18/23 12:30 57 L 105/40 L 05/18/23 12:00 55 L 98/51 L 05/18/23 11:30 56 L 102/54 L 05/18/23 11:00 59 L 103/58 L 05/18/23 10:30 59 L 104/61 05/18/23 10:25 60 105/55 L 05/18/23 10:18 36.8 C 63 05/18/23 08:00 63 05/18/23 08:00 05/18/23 07:59 36.8 C 64 18 117/74 100 05/18/23 02:48 37.0 C 63 18 112/60 100 O2 Del Method O2 Flow Rate 05/18/23 13:00 05/18/23 12:30 05/18/23 12:00 05/18/23 11:30 05/18/23 11:00 05/18/23 10:30 05/18/23 10:25 05/18/23 10:18 05/18/23 08:00 05/18/23 08:00 Nasal Cannula 2 05/18/23 07:59 Nasal Cannula 2 05/18/23 02:48 CPAP Laboratory Results Laboratory Results - last 24 hr 05/18/23 05/18/23 01:15 06:18 WBC 6.96 RBC 4.02 L Hgb 10.1 L Hct 32.9 L MCV 81.8 MCH 25.1 MCHC 30.7 L RDW Std Deviation 44.9 RDW Coeff of Luis 15.6 H Plt Count 169 MPV 10.2 Immature Gran % (Auto) 0.3 Neut % (Auto) 71.4 Lymph % (Auto) 17.2 [place] % (Auto) 7.3 Eos % (Auto) 2.9 Baso % (Auto) 0.9 Neut # (Auto) 4.97 Lymph # (Auto) 1.20 [place] # (Auto) 0.51 Eos # (Auto) 0.20 Baso # (Auto) 0.06 Immature Gran # (Auto) 0.02 PT 34.9 H INR 3.4 H ABG pH 7.37 ABG pCO2 52 H ABG pO2 93 ABG HCO3 30 H ABG O2 Saturation 96.9 H ABG Base Excess 3.6 H [place] Test Pos Oxygen Given 2L Sodium 140 Potassium 4.8 Chloride 101 Carbon Dioxide 29 Anion Gap 10 BUN 41 H D Creatinine 6.23 H* D Est Cr Clr Drug Dosing 6.9 Est GFR ( Amer) 6.9 Est GFR (Non-Af Amer) 5.9 BUN/Creatinine Ratio 6.6 L Glucose 101 H Estimat Average Glucose Pending Hemoglobin A1c Pending Hgb A1c Pathologist Com Pending Calcium 8.9 Phosphorus 5.2 H Magnesium 2.1 Iron 27 L TIBC 195 L Unsaturated IBC 168 Transferrin % Sat 14 L Ferritin 2839.0 H Total Bilirubin 0.5 AST 26 ALT 27 Alkaline Phosphatase 106 H Total Protein 6.7 Albumin 3.7 Globulin 3.0 Albumin/Globulin Ratio 1.2 Triglycerides 94 Cholesterol 107 LDL Cholesterol, Calc 38 VLDL Cholesterol, Calc 19 HDL Cholesterol 50 Cholesterol/HDL Ratio 2.1 Vitamin B12 524 Folate > 22.30
[2023-05-18] MEDS: METOPROLOL SUCC 25MG EXT REL TAB PO SCH (20:50)
[2023-05-19 06:22] LABS: Basophils # (auto) 0.04 K/uL (0.00-0.20); Basophils % (auto) 0.8 %; Eosinophils # (auto) 0.35 K/uL (0.00-0.50); Hemoglobin 10.1 g/dl (12.0-16.0); Immature Granulocytes # (auto) 0.02 K/uL (0.01-0.20); Immature Granulocytes % (auto) 0.4 %; Lymphocytes # (auto) 1.27 K/uL (1.20-3.40); Lymphocytes % (auto) 25.3 %; Mean Corpuscular Hemoglobin 25.1 pg (25.0-34.0); Mean Corpuscular Hgb Conc 30.6 g/dL (32.0-36.0); Mean Corpuscular Volume 81.9 fL (80.0-100.0); Monocytes # (auto) 0.42 K/uL (0.11-0.59); Monocytes % (auto) 8.4 %; Neutrophils # (auto) 2.92 K/uL (1.40-6.50); Neutrophils % (auto) 58.1 %; Platelet Count 153 K/uL (130-400); RDW Coefficient of Variation 15.7 % (11.5-14.5); RDW Standard Deviation 45.1 fL (36.4-46.3); Red Blood Count 4.03 M/uL (4.20-5.40); White Blood Count 5.02 K/ul (4.8-10.8)
[2023-05-19 06:45] LABS: INR 2.7 (0.9-1.1); Prothrombin Time 28.2 Seconds (9.0-12.0)
[2023-05-19 06:46] LABS: Albumin Globulin Ratio 1.2 (0.9-2); Albumin Level 3.7 gm/dl (3.4-5.0); BUN Creatinine Ratio 6.2 (10-20); Bilirubin,Total 0.6 mg/dl (0.2-1.0); Calcium 9.1 mg/dl (8.6-10.3); Creatinine Clr Calc Pharmacy 9.2 ml/min; Est GFR (African American) 9.7 ml/min; Est GFR (Non-African American) 8.4 ml/min; Globulin 3.2 gm/dl (2.5-4.0); Phosphorus 3.9 mg/dl (2.5-4.9); Potassium 4.5 mmol/L (3.5-5.1); Total Protein 6.9 gm/dl (6.0-8.3)
--- NOTE | 2023-05-19 08:48 | Hospitalist Progress Note ---
Date of Service May 19, 2023 Assessment & Plan (1) Atrial fibrillation with rapid ventricular response: (2) End-stage renal disease on hemodialysis: (3) Sleep apnea: (4) GERD (gastroesophageal reflux disease): (5) Asthma, moderate persistent: Plan 77 yo F with history of ESRD on hemodialysis MWF, A-fib on metoprolol/Coumadin, LAUREN on CPAP, GERD/hiatal hernia on PPI/Pepcid, asthma on Trelegy who presented to the ED with shortness of breath, palpitations and dizziness and found to be in rapid A-fib/flutter. Atrial Fibrillation Atrial flutter Pt presented in atrial flutter/atrial fibrillation Was started on a cardizem drip in the ED, switched to IV amiodarone overnight after admission Was also on metoprolol succinate 50mg BID, has since been transitioned to metoprolol succinate 25mg BID by Cardiology Anticoagulated with warfarin, INR now supratherapeutic currently, holding home warfarin, Recheck INR in AM and resume as able. Cardiology consulted appreciate arpan -was scheduled for cardioversion on 05/16 but converted before procedure while at dialysis -continue with po amiodarone at this time -telemetry monitoring for at least 48hrs from the Continue to be monitor Elevated Troponin Demand Ischemia hs-trop elevated, trended from 40.9 to 58.7 EKG on admission noting atrial fibrillation with left anterior fascicular block as above Likely elevated in the setting of above Cardiomegaly HFpEF BNP elevated at 2312 Echos from 2022 reviewed, Mar echo noting Grade II diastolic dysfunction at that time Consider repeating echo, will defer to cardiology Continue to monitor volume status, pt requiring dialysis on // schedule. Dialysis sessions so far this admission on 05/16, 05/17 plan for next one - 05/19 then resume regular schedule Continue to monitor ESRD on dialysis MWF dialysis schedule [place] [facility], consulted. Appreciate recs -s/p dialysis session on 05/16 -repeat session on 05/17 as pt had pulmonary edema overnight -monitor volume status -renally dose meds -renal diet Continue sevelamer Anemia, microcytic Iron Def Anemia Hgb chronically low Has progressed from 11.5 to ~10, slightly microcytic Iron panel, ferritin, iron low S/p IV Venofer by Nephrology on 05/17 B12 and folate wnl Supplement as needed Continue to monitor h/h with AM labs Elevated Lipase Possible Sphincter of Oddi Dysfunction vs. Choledocholithiasis duodenal diverticulum, large hiatal hernia Lipase checked in the ED,elevated at 125 MRCP in 2020 noted in chart- noted enlarged pancreas at that time, enlarged pancreatic duct but no mass noted at that time. Repeat/update CT abd/pelvis wo contrast completed- noted "No evidence of pancreatitis in this patient with elevated lipase. However, there is new dilation of the distal common bile duct with a focus of air. Findings may result from sphincter of Oddi dysfunction or less likely choledocholithiasis." Liver enzymes have been wnl except for decreasing alk phos Pt asymptomatic, no abd tenderness, per daughter has hiatal hernia that gives her chronic N/V/decreased appetite Discussed with daughter- would like copies of MRCP in [address] abd/pelvis and would like to consider further imaging but will defer to current cardiac/renal acuity Consult GI on 05/18 for further recs - Current CT films and 2019 MRI films were reviewed by Dr. Flores and Dr. Duran (radiology). The abnormality represents a duodenal diverticulum, which is benign and painless. No further work up is recommended. This was communicated to the patient and her daughter who agreed with the plan. Post prandial pain is related to large hiatal hernia (but surgical intervention for that would likely be high risk) and uremic gastroparesis. Hyperglycemia Glucose elevated Pending AM hgba1c Electrolyte abnormalities hyperphosphatemia- likely elevated in setting of ESRD with need for dialysis. Monitor with AM labs, improving LAUREN -cpap qhs, ordered Asthma symptoms controlled, continue home inhaler GERD/hiatal hernia continue home Pepcid and PPI twice daily CODE STATUS: Full code Diet: renal diet, fluid restriction DVT prophylaxis-on Coumadin Dispo: PT/OT orders placed Daughter updated at the bedside today. Admission and Anticipated Discharge Date Admission Date: May 16, 2023 Subjective Pt seen in follow up of pulm. edema, afib w/ rvr, esrd on hd Currently sitting up in bed in NAD Pt's daughter present at the bedside and updated nephrology, cardiology following Discussed w/ GI and cardiology today Abnormal CT abd/ pelvis - pt and daughter updated by previous provider Dr. Ace, today updated by GI Currently pt denies any chest pain or shortness of breath, no increased abd. pain Review of Systems Review of Systems: All systems reviewed & are unremarkable except as noted in Subjective Physical Exam Physical Exam: General: WD/WN elderly F in NAD HEENT: NC/AT CV: RRR Resp: Breath sounds clear bilaterally, no increased effort of breathing. Abdomen: Soft, nontender, + bowel sounds Skin: warm, dry Results & Data Results & Data Vital Signs (Past 12 Hours) Vital Signs Temp Pulse Pulse Pulse Resp BP Pulse Ox 05/19/23 07:07 36.5 C 58 L 18 106/62 91 05/19/23 03:01 36.6 C 56 L 16 121/72 100 05/18/23 23:07 65 05/18/23 23:01 36.8 C 62 16 104/63 99 05/18/23 22:37 O2 Del Method O2 Flow Rate 05/19/23 07:07 Room Air 05/19/23 03:01 CPAP 05/18/23 23:07 05/18/23 23:01 CPAP 05/18/23 22:37 CPAP 2 Laboratory Results 05/19/23 05/18/23 05/18/23 Range/Units 05:35 06:18 06:18 WBC 5.02 (4.8-10.8) K/ul RBC 4.03 L (4.20-5.40) M/uL Hgb 10.1 L (12.0-16.0) g/dl Hct 33.0 L (37.0-47.0) % MCV 81.9 (80.0-100.0) fL MCH 25.1 (25.0-34.0) pg MCHC 30.6 L (32.0-36.0) g/dL RDW Std Deviation 45.1 (36.4-46.3) fL RDW Coeff of Luis 15.7 H (11.5-14.5) % Plt Count 153 (130-400) K/uL MPV 10.0 (9.4-12.4) fL Immature Gran % (Auto) 0.4 % Neut % (Auto) 58.1 % Lymph % (Auto) 25.3 % [place] % (Auto) 8.4 % Eos % (Auto) 7.0 % Baso % (Auto) 0.8 % Neut # (Auto) 2.92 (1.40-6.50) K/uL Lymph # (Auto) 1.27 (1.20-3.40) K/uL [place] # (Auto) 0.42 (0.11-0.59) K/uL Eos # (Auto) 0.35 (0.00-0.50) K/uL Baso # (Auto) 0.04 (0.00-0.20) K/uL Immature Gran # (Auto) 0.02 (0.01-0.20) K/uL PT 28.2 H (9.0-12.0) Seconds INR 2.7 H (0.9-1.1) Sodium 137 (136-145) mmol/L Potassium 4.5 (3.5-5.1) mmol/L Chloride 103 (98-107) mmol/L Carbon Dioxide 25 (21-32) mmol/L Anion Gap 9 (3-11) BUN 29 H (6-23) mg/dl Creatinine 4.68 H* D (0.6-1.2) mg/dl Est Cr Clr Drug Dosing 9.2 ml/min Est GFR ( Amer) 9.7 ml/min Est GFR (Non-Af Amer) 8.4 ml/min BUN/Creatinine Ratio 6.2 L (10-20) Glucose 88 (70-99(Fasting)) mg/dl Estimat Average Glucose TNP Estimated Ave Glu mmol/L Pending Estimated Ave Glu mg/dL Pending Hemoglobin A1c Pending TNP Hgb A1c Pathologist Com Calcium 9.1 (8.6-10.3) mg/dl Phosphorus 3.9 D (2.5-4.9) mg/dl Magnesium 2.0 (1.7-2.4) mg/dl Total Bilirubin 0.6 (0.2-1.0) mg/dl AST 21 (13-39) U/L ALT 23 (7-52) U/L Alkaline Phosphatase 102 (34-104) U/L Total Protein 6.9 (6.0-8.3) gm/dl Albumin 3.7 (3.4-5.0) gm/dl Globulin 3.2 (2.5-4.0) gm/dl Albumin/Globulin Ratio 1.2 (0.9-2) Medications Administered Current Inpatient Medications Albuterol (Albuterol Hfa 8 Gm Inhaler) 2 puffs INH Q6R PRN PRN Reason: Wheezing Stop: 06/15/23 18:15 Amiodarone HCl (Amiodarone 200 Mg Tab) 200 mg PO TIDM [facility] Stop: 06/17/23 07:59 Last Admin: 05/18/23 16:42 Dose: 200 mg Atorvastatin Calcium (Atorvastatin 40 Mg Tab) 40 mg PO QAM [facility] Stop: 06/16/23 08:59 Last Admin: 05/18/23 07:44 Dose: 40 mg Famotidine (Famotidine 20 Mg Tab) 20 mg PO AMHS [facility] Stop: 06/15/23 20:59 Last Admin: 05/18/23 20:50 Dose: 20 mg Fluticasone Furoate (Fluticasone Furoate 100mcg 14 Puffs/Inhaler) 1 puffs [facility]; Protocol Stop: 06/16/23 08:59 Last Admin: 05/18/23 07:47 Dose: 1 puffs Promethazine HCl 6.25 mg/ (Sodium Chloride) 50.25 mls @ 201 mls/hr IV Q6H PRN PRN Reason: Nausea And Vomiting Stop: 06/16/23 08:47 Last Infusion: 05/17/23 13:52 Dose: Infused Metoprolol Succinate (Metoprolol Succ 25mg Ext Rel Tab) 25 mg PO BID [facility] Stop: 06/17/23 20:59 Last Admin: 05/18/23 20:50 Dose: 25 mg Miscellaneous (Hold Am Dose Of Metoprolol On Dialysis Days) 1 each N/A JASON [id number] [facility] Stop: 06/18/23 08:58 Nitroglycerin (Nitroglycerin Sl 0.4 Mg/Tab Tab) 0.4 mg SL Q5M PRN PRN Reason: Chest Pain Stop: 06/15/23 18:15 Pantoprazole Sodium (Pantoprazole 40 Mg Tab) 40 mg PO AMHS [facility] Stop: 06/15/23 20:59 Last Admin: 05/18/23 20:50 Dose: 40 mg Sevelamer HCl (Sevelamer Hcl 800 Mg Tablet) 1,600 mg PO TIDM [facility] Stop: 06/15/23 18:15 Last Admin: 05/18/23 16:41 Dose: 1,600 mg Triamcinolone Acetonide (Triamcinolone Acet 0.025% Cr 15 Gm Tube) 1 appln TOP BID PRN PRN Reason: Rash Stop: 06/15/23 18:22 Umeclidinium/Vilanterol (Umeclidinium/Vilanterol 62.5/25mcg 7 Puffs/Inhaler) 1 puffs INH QAM [facility]; Protocol Stop: 06/16/23 08:59 Last Admin: 05/18/23 07:47 Dose: 1 puffs Vitamin B Complex/Folic Acid (Nephrocaps) 1 cap PO DAILY [facility] Stop: 06/18/23 08:59 Warfarin Sodium (Warfarin Sod 7.5 Mg Tab) 7.5 mg PO We@1600 [facility] Stop: 06/18/23 15:59 Warfarin Sodium (Warfarin Sod 5 Mg Tab) 5 mg PO [id number] [facility] Stop: 06/15/23 18:15 Last Admin: 05/17/23 16:39 Dose: 5 mg
--- NOTE | 2023-05-19 08:58 | Gastrointestinal Consultation ---
Date of Consultation May 19, 2023 Assessment & Plan (1) Abnormal CT of the abdomen: Plan Current CT films and 2020 MRI films were reviewed by Dr. Flores and Dr. Duran (radiology). The abnormality represents a duodenal diverticulum, which is benign and painless. No further work up is recommended. This was communicated to the patient and her daughter who agreed with the plan. Post prandial pain is related to large hiatal hernia (but surgical intervention for that would likely be high risk) and uremic gastroparesis. Would consider Reglan 5mg BID before meals if no cardiology contraindication. GI will sign off. Supervising Physician Co-Signing Physician Notes Attg add: Pt with chronic abd pain, nv that is unchanged from baseline, likely related to large HH/uremic gastroparesis. I discussed a trial of Reglan with pts daughter; they are concerned about neuro AE's, and wish to defer. I suspect that the call of pneumobilia and CBD dilation is from paul am tic - I reviewed with radiology, who agrees. No further w/u. Pt with transient mildly increased lipase, likely from ESRD. History of Present Illness Reason for Consultation: Abnormal CT Requesting Physician: Dr. Knight Attending Physician: Humberto Knight MD History of Present Illness Ms. Juventino Ward is a 77 yr old female pt of Dr. Yuen w a hx of ESRD on dialysis, GERD, was admitted for weakness, in [facility]. According to the H&P and the pt's daughter who is at the bedside and is a family practice physician in [place], a CT was arranged because the pt had an elevated lipase at 125 and an MR in 2019 suggested pancreas duct dilation. The non contrast CT here on arrival here suggested a CBD of 11 mm w one distal focus being dilated to 19mm. The pt does have chronic post prandial upper abd fullness/pressure type pain thought secondary to a known large hiatal hernia w/o any change in this pain recently. Allergies Allergy/AdvReac Type Severity Reaction Status Date / Time pollen extracts Allergy Mild sneezing, Verified 03/23/23 09:48 watery eyes Home Medications Medication Instructions Recorded Confirmed Type atorvastatin 40 mg tablet 40 mg PO QAM 11/10/18 05/16/23 History famotidine 20 mg tablet 20 mg PO AMHS 05/28/21 05/16/23 History lidocaine-prilocaine 2.5 %-2.5 % See Rx Instructions topical 05/28/21 05/16/23 History topical cream .COMPLEX nitroglycerin 0.4 mg sublingual 0.4 mg sublingual Q5M PRN Chest 05/28/21 05/16/23 History tablet (Nitrostat) Pain polyethylene glycol 3350 17 gram 17 g PO BID PRN Constipation 05/28/21 05/16/23 History oral powder packet (Miralax) triamcinolone acetonide 0.025 % 1 applic topical BID PRN Rash 05/28/21 05/16/23 History lotion fluticasone fur. 100 mcg-umeclid 1 inh inhalation QAM 10/14/21 05/16/23 History 62.5 mcg-vilant 25 mcg inhalat.powder (Trelegy Ellipta) albuterol sulfate 90 mcg/actuation 2 puff inhalation Q6 PRN Wheezing 01/26/22 05/16/23 History aerosol inhaler (Ventolin HFA) fluticasone propionate 50 2 spray intranasal QAM Allergy 01/26/22 05/16/23 History mcg/actuation nasal Symptoms spray,suspension ondansetron HCl 4 mg tablet 4 mg PO Q8 PRN Nausea 01/26/22 05/16/23 History sevelamer carbonate 800 mg tablet 1,600 mg PO TIDM 01/26/22 05/16/23 History (Renvela) metoprolol succinate 50 mg 50 mg PO BID 90 days #180 tabs 01/04/23 05/16/23 Rx tablet,extended release 24 hr pantoprazole 40 mg tablet,delayed 40 mg PO AMHS 05/16/23 05/16/23 History release tramadol 50 mg tablet 50 mg PO DAILY PRN Pain 05/16/23 05/16/23 History vit B complx, C-iron 8 mg-folic 1 tab PO DAILY 05/16/23 05/16/23 History acid 800 mcg-D3 1,000 unit-zinc tablet (ProRenal) warfarin 2.5 mg tablet 7.5 mg PO DIRECTED 05/16/23 05/16/23 History warfarin 5 mg tablet 5 mg PO DIRECTED 05/16/23 05/16/23 History Patient History Medical History Lumbosacral pain Lumbar radicular pain Right sided sciatica Left rotator cuff tear Encounter for pre-operative examination Anemia of chronic disease Bilateral primary osteoarthritis of knee Chronic anemia Aortic stenosis Mild aortic stenosis (ASHLI 1.3-1.4cm2, MG 15.3mmhg) per 03/2022 echo Osteoarthritis of knees, bilateral RSV (respiratory syncytial virus pneumonia) History of COVID-19 Most recent 10/2021 ([facility])- symptoms resolved AV fistula LUE Hyperlipidemia Hypertension Sleep apnea CPAP + 2L HS End-stage renal disease on hemodialysis MWF ([facility]) Asthma, moderate persistent GERD (gastroesophageal reflux disease) Chronic anemia Hx iron infusions Gout Diabetes mellitus diet controlled Surgical History History of cataract surgery History of lumbar surgery S/P arteriovenous (AV) fistula creation Status post biopsy of kidney kidney disease History of colonoscopy History of esophagogastroduodenoscopy (EGD) 10/2021 History of cholecystectomy History of tooth extraction all teeth removed History of oral surgery salivary gland surgery History of cardiac cath 2017 ([facility])- no stents H/O partial thyroidectomy History of appendectomy H/O: hysterectomy SANDRA BSO Family History Daughter Cancer Breast Daughter Cancer Breast Daughter Hypertension Daughter Hypertension Father Diabetes Hypertension Mother Hypertension Brother Diabetes Brother Diabetes Sister Diabetes Sister Diabetes Sister Hypertension Sister Hypertension Other No family history of adverse response to anesthesia Social History Smoking Status: Never smoker Second Hand Exposure: No; Do You Dip or Chew Tobacco: No; Tobacco Cessation Education Requested by Patient: No Hx Alcohol Use: No Hx Substance Use: No Preferred Language: Qatari Communication Ability: Effective Communication Ability Comment: daughter states her mother can read/write/understand mohawk Bung Dropper Required: No Beliefs That Will Affect Care: None marital status: / Current Living Situation: Family Current Living Situation Comment: Lives with daughter Other Information That Helps Us Care for You: No Feels Safe at Home: Yes Safety Concerns: Feels Safe At This Time Assistive Devices: Cane, Oxygen - at Night, Oxygen - Continuous and Walker Review of Systems 2 Review of Systems: + as per HPI. Otherwise (-). A total of 12 systems were reviewed. Physical Exam 2 Constitutional: WD/WN, vitals as above Eyes: PERRL, conjunctivae normal, anicteric sclerae ENMT: external ear and nose normal, oropharynx normal Neck: trachea midline, no thyromegaly Respiratory: normal respiratory effort, lungs clear to auscultation Cardiovascular: irregular rate/rhythm. 2-3/6 systolic murmur Gastrointestinal (Abdomen): Mild epigastric tenderness, no palpable masses, soft, normal BS. Musculoskeletal: no cyanosis or clubbing, extremities motor strength 5/5 Skin: no rashes, warm and dry Neurologic: PERRL, EOMI, accommodation nl, no face palsy, no dysarthria Psychiatric: A+Ox3, euthymic affect Lymphatic: no cervical or axillary lymphadenopathy Results & Data Vital Signs (Past 12 Hours) Vital Signs Temp Pulse Pulse Pulse Resp BP Pulse Ox 05/19/23 07:07 36.5 C 58 L 18 106/62 91 05/19/23 03:01 36.6 C 56 L 16 121/72 100 05/18/23 23:07 65 05/18/23 23:01 36.8 C 62 16 104/63 99 05/18/23 22:37 O2 Del Method O2 Flow Rate 05/19/23 07:07 Room Air 05/19/23 03:01 CPAP 05/18/23 23:07 05/18/23 23:01 CPAP 05/18/23 22:37 CPAP 2 Laboratory Results 05/19/23 05:35 05/19/23 05:35 Diagnostic Findings Non contrast CTAP 05/18/23: 1. No evidence of pancreatitis in this patient with elevated lipase. However, there is new dilation of the distal common bile duct with a focus of air. Findings may result from sphincter of Oddi dysfunction or less likely choledocholithiasis. 2. Moderate hiatal hernia. 3. Small right pleural effusion bibasilar atelectasis.
--- NOTE | 2023-05-19 09:59 | Nephrology Progress Note ---
Date of Service May 19, 2023 Assessment & Plan (1) End-stage renal disease on hemodialysis: Plan: * No HD planned for today * Completed full treatment yesterday * Volume status controlled * Electrolytes acceptable * I will plan for a short HD treatment tomorrow AM as an inpatient * Resume MWF schedule on Wednesday (05/20) * Renal diet and 1.2 L daily fluid restriction * Medications are dosed appropriately for kidney function * Goal will be to try to continue metoprolol succinate BID for atrial fibrillation, avoid aggressive UFR with HD given history of intradialytic hypotension associated with beta-blockers in the past (2) Rapid atrial fibrillation: Plan: * Converted to sinus rhythm with amiodarone * Plan to continue amiodarone with metoprolol moving forward * Metoprolol dose reduced to 25 mg BID for bradycardia * Plan to see how she tolerates HD tomorrow AM with beta-michael prior to treatment * I discussed the plan of care with Dr. Adrian and the patient's daughter this AM (3) Anemia: Plan: * Hgb is within target 10-11 g/dL * Venofer 100 mg IV provided with HD yesterday * Additional Venofer to be provided with HD tomorrow (4) Sleep apnea: Plan: * Nocturnal CPAP as per primary service Admission and Anticipated Discharge Date Admission Date: May 16, 2023 Subjective No acute events overnight. Juventino was resting comfortably this morning. She was seen and evaluated with her daughter at the bedside. I discussed the plan of care with Dr. Adrian and Dr. Flores. Juventino tolerated dialysis well yesterday. She noted significant improvement in chest heaviness/congestion and associated dyspnea with treatment. There were no complications with the dialysis treatment. Clearances have been at goal. AVF is functioning well. Juventino reported some lightheadedness this morning. She has experienced intermittent dizziness over the past few days that is worse when standing. Otherwise, she feels well. She denies dyspnea. She denies any chest pain this morning. Review of Systems Review of Systems: All systems reviewed & are unremarkable except as noted in HPI & below Physical Exam Constitutional: well developed; no acute distress Eyes: no scleral abnormality and no corneal abnormality ENMT: Mouth: oral mucous membranes not dry Neck: trachea midline and + anterior neck swelling Respiratory: normal respiratory effort Auscultation: lungs clear to auscultation bilaterally Cardiovascular: Rate/Rhythm: regular rhythm and + bradycardic Heart Sounds: normal S1, normal S2 and + murmur Extremities: + AV fistula; no edema Musculoskeletal: Extremities: no cyanosis and no clubbing Skin: normal turgor; no jaundice Neurologic: Motor/Sensory: no tremor and no asterixis Psychiatric: Orientation: alert and oriented x 3 Results & Data Vital Signs (Past 12 Hours) Vital Signs Temp Pulse Pulse Pulse Resp BP Pulse Ox 05/19/23 07:07 36.5 C 58 L 18 106/62 91 05/19/23 03:01 36.6 C 56 L 16 121/72 100 05/18/23 23:07 65 05/18/23 23:01 36.8 C 62 16 104/63 99 05/18/23 22:37 O2 Del Method O2 Flow Rate 05/19/23 07:07 Room Air 05/19/23 03:01 CPAP 05/18/23 23:07 05/18/23 23:01 CPAP 05/18/23 22:37 CPAP 2 Laboratory Results Laboratory Results - last 24 hr 05/18/23 05/18/23 05/19/23 06:18 06:18 05:35 WBC 5.02 RBC 4.03 L Hgb 10.1 L Hct 33.0 L MCV 81.9 MCH 25.1 MCHC 30.6 L RDW Std Deviation 45.1 RDW Coeff of Luis 15.7 H Plt Count 153 MPV 10.0 Immature Gran % (Auto) 0.4 Neut % (Auto) 58.1 Lymph % (Auto) 25.3 [place] % (Auto) 8.4 Eos % (Auto) 7.0 Baso % (Auto) 0.8 Neut # (Auto) 2.92 Lymph # (Auto) 1.27 [place] # (Auto) 0.42 Eos # (Auto) 0.35 Baso # (Auto) 0.04 Immature Gran # (Auto) 0.02 PT 28.2 H INR 2.7 H Sodium 137 Potassium 4.5 Chloride 103 Carbon Dioxide 25 Anion Gap 9 BUN 29 H Creatinine 4.68 H* D Est Cr Clr Drug Dosing 9.2 Est GFR ( Amer) 9.7 Est GFR (Non-Af Amer) 8.4 BUN/Creatinine Ratio 6.2 L Glucose 88 Estimat Average Glucose TNP Estimated Ave Glu mmol/L Pending Estimated Ave Glu mg/dL Pending Hemoglobin A1c TNP Pending Hgb A1c Pathologist Com Calcium 9.1 Phosphorus 3.9 D Magnesium 2.0 Total Bilirubin 0.6 AST 21 ALT 23 Alkaline Phosphatase 102 Total Protein 6.9 Albumin 3.7 Globulin 3.2 Albumin/Globulin Ratio 1.2 PG Care Time/CCT Total # of Minutes Spent Total Time Spent with Patient: Total time spent is greater than 50% in coordination of care (as documented) at patient's floor/unit and/or counseling patient: Coding Level of Care Code 47070 SUB INP/OBS CARE 3/50MIN Diagnoses End-stage renal disease on hemodialysis N18.6; Z99.2 Rapid atrial fibrillation I48.91 Anemia D64.9 Anemia type: unspecified type Sleep apnea G47.30 (3) Anemia Anemia type: unspecified type Qualified Code(s): D64.9 - Anemia, unspecified
[2023-05-19] MEDS: [UNRECOGNIZED DRUG - REMARK] SCH (10:05)
[2023-05-19] MEDS: NEPHROCAPS PO SCH (10:05)
--- NOTE | 2023-05-19 14:12 | Cardiology Progress Note ---
Date of Service May 19, 2023 Assessment & Plan (1) Paroxysmal atrial flutter: (2) ESRD (end stage renal disease): (3) Shortness of breath: Plan 77-year-old female with complex history as outlined above with recurrence of atrial arrhythmias and now atrial flutter with rapid ventricular response, 2-1 conduction Patient is spontaneously converted to sinus rhythm. Discussed with daughter and patient high likelihood of recurrence of arrhythmias, left atrial enlargement on echocardiogram, fluctuation in fluid status and electrolytes during dialysis Will continue IV amiodarone overnight convert to oral amiodarone in a.m. check EKG in a.m. May ultimately reduce metoprolol dosing depending on heart rate Maintain telemetry additional 48 hours to assess QT interval and arrhythmias Daughter agreeable Additional options discussed including AV junction ablation with pacemaker if atrial arrhythmias become persistent with rapid response 05/18/2023 Tolerating amiodarone with mild bradycardia. Will reduce metoprolol succinate to 25 mg twice per day continue amiodarone 200mg 3 times per day EKG in a.m. 05/19/2023 Discussed care in detail with patient and patient's daughter as well as Dr. Tay. No further atrial fibrillation. EKG reveals mild QT prolongation In past has had difficulty with dialysis and hypotension. Will continue current dosing of metoprolol succinate at least the next 24 hours. May ultimately be able to reduce further but would like to see further load with amiodarone complete Will continue amiodarone once per day with a EKG in a.m. Admission and Anticipated Discharge Date Admission Date: May 16, 2023 Subjective Patient was seen and examined, chart, medications, telemetry reviewed. No complaints. Tolerated dialysis reasonably well yesterday. No further arrhythmias. Maintaining sinus and sinus bradycardia with low-dose amiodarone and metoprolol Mild lightheadedness no syncope or near syncope Review of Systems Review of Systems: All systems reviewed & are unremarkable except as noted in Subjective Physical Exam Constitutional: no acute distress Eyes: PERRL, conjunctivae normal, anicteric sclerae ENMT: external ear and nose normal, oropharynx normal Neck: trachea midline, no thyromegaly Respiratory: normal respiratory effort, lungs clear to auscultation Auscultation: + diminished lung sounds Cardiovascular: Rate/Rhythm: regular rate, regular rhythm and + bradycardic Vessels: no JVD Extremities: no edema Gastrointestinal (Abdomen): normal bowel sounds, soft, nontender, no hepatosplenomegaly Results & Data Vital Signs (Past 12 Hours) Vital Signs Temp Pulse Pulse Pulse Resp BP Pulse Ox 05/19/23 11:26 36.4 C L 58 L 18 116/70 97 05/19/23 09:00 55 L 05/19/23 07:07 36.5 C 58 L 18 106/62 91 05/19/23 03:01 36.6 C 56 L 16 121/72 100 O2 Del Method 05/19/23 11:26 Room Air 05/19/23 09:00 05/19/23 07:07 Room Air 05/19/23 03:01 CPAP Laboratory Results Laboratory Results - last 24 hr 05/18/23 05/18/23 05/19/23 06:18 06:18 05:35 WBC 5.02 RBC 4.03 L Hgb 10.1 L Hct 33.0 L MCV 81.9 MCH 25.1 MCHC 30.6 L RDW Std Deviation 45.1 RDW Coeff of Luis 15.7 H Plt Count 153 MPV 10.0 Immature Gran % (Auto) 0.4 Neut % (Auto) 58.1 Lymph % (Auto) 25.3 [place] % (Auto) 8.4 Eos % (Auto) 7.0 Baso % (Auto) 0.8 Neut # (Auto) 2.92 Lymph # (Auto) 1.27 [place] # (Auto) 0.42 Eos # (Auto) 0.35 Baso # (Auto) 0.04 Immature Gran # (Auto) 0.02 PT 28.2 H INR 2.7 H Sodium 137 Potassium 4.5 Chloride 103 Carbon Dioxide 25 Anion Gap 9 BUN 29 H Creatinine 4.68 H* D Est Cr Clr Drug Dosing 9.2 Est GFR ( Amer) 9.7 Est GFR (Non-Af Amer) 8.4 BUN/Creatinine Ratio 6.2 L Glucose 88 Estimat Average Glucose TNP Estimated Ave Glu mmol/L Pending Estimated Ave Glu mg/dL Pending Hemoglobin A1c TNP Pending Hgb A1c Pathologist Com Calcium 9.1 Phosphorus 3.9 D Magnesium 2.0 Total Bilirubin 0.6 AST 21 ALT 23 Alkaline Phosphatase 102 Total Protein 6.9 Albumin 3.7 Globulin 3.2 Albumin/Globulin Ratio 1.2
[2023-05-19] MEDS ORDERED: WARFARIN SOD 7.5 MG TAB PO SCH (16:00)
--- NOTE | 2023-05-19 16:10 | Electrocardiogram Report ---
Test Reason : Blood Pressure : / mmHG Vent. Rate : 059 BPM Atrial Rate : 059 BPM P-R Int : 192 ms QRS Dur : 118 ms QT Int : 510 ms P-R-T Axes : 040 -57 040 degrees QTc Int : 504 ms Sinus bradycardia Left anterior fascicular block Nonspecific T wave abnormality Prolonged QT Abnormal ECG When compared with ECG of 18-MAY-2023 12:45, Premature supraventricular complexes are no longer Present Inverted T waves have replaced nonspecific T wave abnormality in Anterior leads Confirmed by Florentin Flores ([id number]) on 05/19/2023 4:10:31 PM Referred By: REFERRED SELF Confirmed By:Florentin Flores
[2023-05-20 05:17] LABS: EAG mmol/L 5.8 mmol/L; HA1C 5.3 (<5.7)
[2023-05-20 07:27] LABS: Basophils # (auto) 0.04 K/uL (0.00-0.20); Basophils % (auto) 0.8 %; Eosinophils # (auto) 0.31 K/uL (0.00-0.50); Eosinophils % (auto) 6.4 %; Hematocrit (blood only) 32.8 % (37.0-47.0); Hemoglobin 10.1 g/dl (12.0-16.0); Immature Granulocytes # (auto) 0.02 K/uL (0.01-0.20); Immature Granulocytes % (auto) 0.4 %; Lymphocytes # (auto) 1.66 K/uL (1.20-3.40); Lymphocytes % (auto) 34.4 %; Mean Corpuscular Hgb Conc 30.8 g/dL (32.0-36.0); Mean Corpuscular Volume 81.2 fL (80.0-100.0); Monocytes # (auto) 0.44 K/uL (0.11-0.59); Monocytes % (auto) 9.1 %; Neutrophils # (auto) 2.35 K/uL (1.40-6.50); Neutrophils % (auto) 48.9 %; Platelet Count 163 K/uL (130-400); RDW Coefficient of Variation 15.9 % (11.5-14.5); RDW Standard Deviation 45.8 fL (36.4-46.3); Red Blood Count 4.04 M/uL (4.20-5.40); White Blood Count 4.82 K/ul (4.8-10.8)
[2023-05-20] MEDS: AMIODARONE 200 MG TAB PO SCH (07:47)
[2023-05-20 08:00] LABS: INR 1.8 (0.9-1.1); Prothrombin Time 19.1 Seconds (9.0-12.0)
[2023-05-20 08:04] LABS: Albumin Globulin Ratio 1.1 (0.9-2); Albumin Level 3.5 gm/dl (3.4-5.0); BUN Creatinine Ratio 7.3 (10-20); Bilirubin,Total 0.4 mg/dl (0.2-1.0); Creatinine Clr Calc Pharmacy 6.3 ml/min; Est GFR (African American) 6.2 ml/min; Est GFR (Non-African American) 5.3 ml/min; Globulin 3.2 gm/dl (2.5-4.0); Magnesium 2.1 mg/dl (1.7-2.4); Phosphorus 4.8 mg/dl (2.5-4.9); Potassium 4.6 mmol/L (3.5-5.1); Total Protein 6.7 gm/dl (6.0-8.3)
--- NOTE | 2023-05-20 10:17 | Nephrology Progress Note ---
Date of Service May 20, 2023 Assessment & Plan (1) End-stage renal disease on hemodialysis: Plan: * Orders for HD today entered into the EHR and reviewed with rewinder. * Juventino will receive an abridged dialysis treatment today. * She is tolerating HD well - BP acceptable. * Resume MWF schedule tomorrow (05/20). * Renal diet and 1.2 L daily fluid restriction. * Medications are dosed appropriately for kidney function. * Metoprolol succinate held prior to HD. Juventino received treatment today and demonstrated ability to tolerate dialysis well on current Rx of amiodarone and metoprolol succinate. * Continue Renvela 2 tab QAC. * Continue daily renal MVI. (2) Rapid atrial fibrillation: Plan: * Converted to sinus rhythm with amiodarone. * Plan to continue amiodarone with metoprolol moving forward. * Metoprolol dose reduced to 25 mg BID for bradycardia. Hold AM dose prior to HD. (3) Anemia: Plan: * Hgb is within target 10-11 g/dL * Venofer 100 mg IV provided with HD 05/17 and 05/19. Admission and Anticipated Discharge Date Admission Date: May 16, 2023 Subjective No acute events overnight. Juventino remains in sinus bradycardia. She was seen and evaluated prior to and during her hemodialysis treatment. She is tolerating HD well. Qb at goal. AVF functioning well. Juventino denies chest pains or palpitations. She denies dyspnea. She states that she feels well this morning. She is not currently experiencing any lightheadedness. She denies any dizziness. She continues to report some difficulty sleeping at night. She feels tired during the day for this reason. She noted that sleep will improve once she is home. Review of Systems Review of Systems: All systems reviewed & are unremarkable except as noted in HPI & below Physical Exam Constitutional: well developed; no acute distress Eyes: + anicteric sclerae; no corneal abnormal ity ENMT: Mouth: no oral mucosal abnormality and oral mucous membranes not dry Neck: normal visual inspection, trachea midline and + anterior neck swelling Respiratory: normal respiratory effort Auscultation: lungs clear to auscultation bilaterally Cardiovascular: Rate/Rhythm: regular rhythm and + bradycardic Heart Sounds: normal S1, normal S2 and + murmur Extremities: + AV fistula; no edema Musculoskeletal: Extremities: no cyanosis and no clubbing Skin: normal turgor; no jaundice Neurologic: Motor/Sensory: no tremor and no asterixis Psychiatric: Orientation: alert and oriented x 3 Results & Data Vital Signs (Past 12 Hours) Vital Signs Temp Pulse Pulse Pulse Resp BP BP 05/20/23 10:00 58 L 114/62 05/20/23 09:31 60 110/61 05/20/23 09:26 36.5 C 59 L 05/20/23 09:00 54 L 05/20/23 07:50 36.3 C L 54 L 20 132/77 05/20/23 02:55 36.5 C 58 L 16 106/65 05/19/23 23:27 36.4 C L 58 L 22 117/70 05/19/23 23:15 Pulse Ox O2 Del Method O2 Flow Rate 05/20/23 10:00 05/20/23 09:31 05/20/23 09:26 05/20/23 09:00 05/20/23 07:50 95 CPAP 05/20/23 02:55 99 CPAP 05/19/23 23:27 100 CPAP 05/19/23 23:15 CPAP 2 Laboratory Results Laboratory Results - last 24 hr 05/18/23 05/20/23 06:18 07:09 WBC 4.82 RBC 4.04 L Hgb 10.1 L Hct 32.8 L MCV 81.2 MCH 25.0 MCHC 30.8 L RDW Std Deviation 45.8 RDW Coeff of Luis 15.9 H Plt Count 163 MPV 10.0 Immature Gran % (Auto) 0.4 Neut % (Auto) 48.9 Lymph % (Auto) 34.4 [place] % (Auto) 9.1 Eos % (Auto) 6.4 Baso % (Auto) 0.8 Neut # (Auto) 2.35 Lymph # (Auto) 1.66 [place] # (Auto) 0.44 Eos # (Auto) 0.31 Baso # (Auto) 0.04 Immature Gran # (Auto) 0.02 PT 19.1 H INR 1.8 H Sodium 139 Potassium 4.6 Chloride 105 Carbon Dioxide 23 Anion Gap 11 BUN 50 H D Creatinine 6.81 H* D Est Cr Clr Drug Dosing 6.3 Est GFR ( Amer) 6.2 Est GFR (Non-Af Amer) 5.3 BUN/Creatinine Ratio 7.3 L Gl[address] Glu mmol/L 5.[address] Glu mg/dL 105 Hemoglobin A1c 5.3 Calcium 9.0 Phosphorus 4.8 Magnesium 2.1 Total Bilirubin 0.4 AST 16 ALT 19 Alkaline Phosphatase 103 Total Protein 6.7 Albumin 3.5 Globulin 3.2 Albumin/Globulin Ratio 1.1 PG Care Time/CCT Total # of Minutes Spent Total Time Spent with Patient: Total time spent is greater than 50% in coordination of care (as documented) at patient's floor/unit and/or counseling patient: Coding Level of Care Code 32033 SUB INP/OBS CARE 3/50MIN Diagnoses End-stage renal disease on hemodialysis N18.6; Z99.2 Rapid atrial fibrillation I48.91 Anemia D64.9 Anemia type: unspecified type (3) Anemia Anemia type: unspecified type Qualified Code(s): D64.9 - Anemia, unspecified
[2023-05-20] MEDS: IRON SUCROSE 100 MG in SYRINGE 0 ML IV ONE (11:39)
--- NOTE | 2023-05-20 12:32 | Electrocardiogram Report ---
Test Reason : Blood Pressure : / mmHG Vent. Rate : 054 BPM Atrial Rate : 054 BPM P-R Int : 200 ms QRS Dur : 128 ms QT Int : 508 ms P-R-T Axes : 043 -52 -02 degrees QTc Int : 481 ms Sinus bradycardia with Premature atrial complexes Left anterior fascicular block T wave abnormality, consider anterior ischemia Abnormal ECG When compared with ECG of 19-MAY-2023 07:59, Premature atrial complexes are now Present Confirmed by Florentin Flores ([id number]) on 05/20/2023 12:31:45 PM Referred By: REFERRED SELF Confirmed By:Florentin Flores
--- NOTE | 2023-05-20 14:22 | Discharge Summary ---
Date of Service May 20, 2023 Admission HPI Per Admitting Provider 77-year-old female with history of ESRD on MWF, LAUREN on CPAP with 2 L nocturnal oxygen, bronchial asthma, GERD/hiatal hernia, atrial fibrillation, etc who presents today for shortness of breath, palpitations and dizziness. History taken from patient and daughter at bedside. Daughter is a physician. States she has been having shortness of breath and palpitations and was found to have elevated heart rate for the past few days, even during dialysis. They tried to reach cardiology but did not hear back. Daughter increased her home metoprolol from 50 to 75 but did not make a difference and she was brought to the ED for further management. In the ED, she was found to be in A-fib with RVR. ED physician discussed with cardiology and was given Cardizem bolus and started on drip with improvement in heart rate. She feels little better during the encounter. Denies any fever, chills, chest pain, lightheadedness, dizziness, nausea vomiting, confusion. States she makes little urine and gets her volume offloaded from dialysis. She takes Coumadin 7.5 mg on Wednesday and 5 mg on rest of the week. Uses CPAP at night and daughter is going to bring from home. Medications reconciled at bedside. Admission Exam Per Admitting Provider General: Lying comfortably in bed, not in distress, on NC HEENT: EOMI, BEAR, MMM Chest: Clear breath sounds bilaterally CVS: Irregular rate and rhythm Abdomen: Soft, non tender, not distended, normal bowel sounds Neuro: Awake, alert, oriented, conversing well, non focal Extremities: Left upper extremity AV fistula. No edema. Principal Diagnosis Afib w/ RVR, pulm. edema, shortness of breath, ESRD on HD Discharge Exam General: WD/WN elderly F in NAD HEENT: NC/AT CV: RRR Resp: Breath sounds clear bilaterally, no increased effort of breathing. Abdomen: Soft, nontender, + bowel sounds Skin: warm, dry Discharge Data Allergies Allergy/AdvReac Type Severity Reaction Status Date / Time pollen extracts Allergy Mild sneezing, Verified 03/23/23 09:48 watery eyes Consultations 05/16/23 15:43 Consult Cardiology Stat 05/16/23 16:00 ED Decision to Admit Stat 05/17/23 08:55 Consult Nephrology Routine 05/19/23 08:43 Consult Gastroenterology Routine Procedures Performed Operation Date: 05/17/23 13:00 <No data on this case meets the specified criteria> Ordered Studies 05/18/23 08:00 CT abd pelvis wo con Routine FINDINGS: Lower chest: Biatrial enlargement is seen with cardiomegaly. Small right pleural effusion. Bilateral atelectasis is seen. Liver: Unremarkable. No focal lesions are seen. Gallbladder and biliary tree: The gallbladder is contracted. There is dilation of the distal duct to 19 mm tiny focus of air noted. The common bile duct measures up to 11 mm in diameter. Pancreas: No peripancreatic stranding. Spleen: Unremarkable. Adrenals: Unremarkable. Kidneys and ureters: Kidneys are diminutive with bilateral renal cysts noted. Bladder: Limited evaluation due to underdistention. Reproductive organs: Unremarkable. Bowel: Diverticulosis is seen without evidence of diverticulitis. A moderate hiatal hernia is seen. Lymph nodes Retroperitoneal: Unremarkable. Pelvic: Unremarkable. Mesenteric: Unremarkable. Peritoneum: Normal. Vessels: Atherosclerotic calcifications are seen. Abdominal wall: A fat-containing umbilical hernia is seen. Bones: Degenerative changes in the visualized spine. IMPRESSION: 1. No evidence of pancreatitis in this patient with elevated lipase. However, there is new dilation of the distal common bile duct with a focus of air. Findings may result from sphincter of Oddi dysfunction or less likely choledocholithiasis. 2. Moderate hiatal hernia. 3. Small right pleural effusion bibasilar atelectasis. Hospital Course (1) Atrial fibrillation with rapid ventricular response: (2) End-stage renal disease on hemodialysis: (3) Sleep apnea: (4) GERD (gastroesophageal reflux disease): (5) Asthma, moderate persistent: Plan 77 yo F with history of ESRD on hemodialysis MWF, A-fib on metoprolol/Coumadin, LAUREN on CPAP, GERD/hiatal hernia on PPI/Pepcid, asthma on Trelegy who presented to the ED with shortness of breath, palpitations and dizziness and found to be in rapid A-fib/flutter. Atrial Fibrillation Atrial flutter Pt presented in atrial flutter/atrial fibrillation Was started on a cardizem drip in the ED, switched to IV amiodarone overnight after admission Was also on metoprolol succinate 50mg BID, has since been transitioned to metoprolol succinate 12.5 mg BID by Cardiology Anticoagulated with warfarin, INR was supratherapeutic , held home warfarin, INR 1.8 now, resume warfarin Cardiology consulted appreciate recteddy -was scheduled for cardioversion on 05/16 but converted before procedure while at dialysis -continue with PO amiodarone 200 mg daily on discharge per Cardiology Elevated Troponin Demand Ischemia hs-trop elevated, trended from 40.9 to 58.7 EKG on admission noting atrial fibrillation with left anterior fascicular block as above Likely elevated in the setting of above Cardiomegaly HFpEF BNP elevated at 2312 Echos from 2022 reviewed, Mar echo noting Grade II diastolic dysfunction at that time Consider repeating echo, will defer to cardiology Continue to monitor volume status, pt requiring dialysis on M/W/F schedule. Dialysis sessions so far this admission on 05/16, 05/17, 05/19 - resume regular HD schedule on discharge Continue to monitor ESRD on dialysis MWF dialysis schedule [place] [facility] [place] consulted. Appreciate recs -s/p dialysis session on 05/16 -repeat session on 05/17 as pt had pulmonary edema overnight -monitor volume status -renally dose meds -renal diet Continue sevelamer Anemia, microcytic Iron Def Anemia Hgb chronically low Has progressed from 11.5 to ~ 10, slightly microcytic Iron panel, ferritin, iron low S/p IV Venofer by Nephrology on 05/17, 05/19 B12 and folate wnl Supplement as needed Continue to monitor H/H Elevated Lipase Possible Sphincter of Oddi Dysfunction vs. Choledocholithiasis duodenal diverticulum, large hiatal hernia Lipase checked in the ED,elevated at 125 MRCP in 2020 noted in chart- noted enlarged pancreas at that time, enlarged pancreatic duct but no mass noted at that time. Repeat/update CT abd/pelvis wo contrast completed- noted "No evidence of pancreatitis in this patient with elevated lipase. However, there is new dilation of the distal common bile duct with a focus of air. Findings may result from sphincter of Oddi dysfunction or less likely choledocholithiasis." Liver enzymes have been wnl except for decreasing alk phos Pt asymptomatic, no abd tenderness, per daughter has hiatal hernia that gives her chronic N/V/decreased appetite Discussed with daughter- would like copies of MRCP in [address] abd/pelvis and would like to consider further imaging but will defer to current cardiac/renal acuity Consulted GI on 05/18 for further recs - Current CT films and 2019 MRI films were reviewed by Dr. Flores and Dr. Duran (radiology). The abnormality represents a duodenal diverticulum, which is benign and painless. No further work up is recommended. This was communicated to the patient and her daughter who agreed with the plan. Post prandial pain is related to large hiatal hernia (but surgical intervention for that would likely be high risk) and uremic gastroparesis. Hyperglycemia Glucose elevated Pending AM [id number] Electrolyte abnormalities hyperphosphatemia- elevated in setting of ESRD, Monitor and cont. HD as per nephrology LAUREN -cpap qhs, ordered Asthma symptoms controlled, continue home inhaler GERD/hiatal hernia continue home Pepcid and PPI twice daily Total Time Total Time Spent Total Time Spent (In Minutes): 40 Discharge Plan Discharge Items Patient Disposition: Home - Self-Care Reason For Visit: SOB,PALPITATIONS, A FIB W RVR Discharge Diagnosis: Afib w/ RVR, pulm. edema, shortness of breath, ESRD on HD Activity: Per Instructions section Non-emergency contact: Primary Care Provider, Recreation Supervisor and Hat Brim Curler Call non-emergency contact if: you have any medication questions and your symptoms worsen Follow-up/Referrals: Alberto Yuen MD [Primary Care Provider] - (Date & Time 05/25/2023 11:00 AM Provider Alberto Yuen III, MD Department [facility] ) Diet: Dialysis Renal Fluids: 1500ml (6 cups) Addtl Attending Provider Instructions: Follow up with your primary care physician , ham marker and painter mirror. You were started on a new medication - amiodarone - take 200 mg daily (as prescribed). Your metoprolol succinate dose was decreased to 12.5 mg twice a day. Continue with your regular scheduled dialysis. Pending Studies at Discharge: No Stand-Alone Forms: [employer], Smoking Cessation Medications and DC Order Prescriptions: New amiodarone 200 mg Tablet 200 mg PO DAILY Qty: 30 0RF metoprolol succinate 25 mg Tablet Extended Release 24 Hr 12.5 mg PO BID Qty: 30 0RF Continued atorvastatin 40 mg tablet 40 mg PO QAM lidocaine-prilocaine 2.5-2.5 % cream See Rx Instructions topical .COMPLEX Rx Instructions: apply small amount to access site (AVF) 1 to 2 hours before dialysis. cover with occlusive dressing (SARAN WRAP) polyethylene glycol 3350 [Miralax] 17 gram powder in packet 17 g PO BID PRN (Reason: Constipation) Rx Instructions: pt uses prn nitroglycerin [Nitrostat] 0.4 mg tablet, sublingual 0.4 mg sublingual Q5M PRN (Reason: Chest Pain) Rx Instructions: do not exceed 3 doses per episode famotidine 20 mg tablet 20 mg PO AMHS triamcinolone acetonide 0.025 % lotion 1 applic topical BID PRN (Reason: Rash) Trelegy Ellipta 100-62.5-25 mcg Blister With Device 1 inh INHALATION QAM Rx Instructions: rinse after use fluticasone propionate 50 mcg/actuation spray,suspension 2 spray INTRANASAL QAM albuterol sulfate [Ventolin HFA] 90 mcg/actuation HFA aerosol inhaler 2 puff INHALATION Q6 PRN (Reason: Wheezing) sevelamer carbonate [Renvela] 800 mg tablet 1,600 mg PO TIDM ondansetron HCl 4 mg tablet 4 mg PO Q8 PRN (Reason: Nausea) Rx Instructions: TAKE ONE TABLET BY MOUTH TWICE DAILY NEEDED FOR NAUSEA / VOMITING pantoprazole 40 mg tablet,delayed release (DR/EC) 40 mg PO AMHS warfarin 2.5 mg tablet 7.5 mg PO DIRECTED Patient Comments: 7.5 mg every wednesday, 5 mg rest of the week Rx Instructions: To be determined by [facility] warfarin 5 mg tablet 5 mg PO DIRECTED Patient Comments: 7.5 mg every wednesday, 5 mg rest of the week Rx Instructions: To be determined by [facility] ProRenal 8 mg iron-800 mcg-1,000 unit tablet 1 tab PO DAILY tramadol 50 mg tablet 50 mg PO DAILY PRN (Reason: Pain) Discontinued metoprolol succinate 50 mg tablet extended release 24 hr 50 mg PO BID 90 Days Qty: 180 1RF Rx Instructions: Hold AM dose on dialysis days Discharge Orders: Discharge Order (Routine); Ordered 05/20/23 Ordered By: Humberto Knight Admission Data Admit Date/Time: 05/16/23 16:29 Attending Provider: Humberto Knight Admit Provider: Jermaine Chow Primary Care Provider: Alberto Yuen Other Providers: Lulu De La Rosa; Jermaine Chow; Edgardo Tay; Allen Flores
--- NOTE | 2023-05-20 14:48 | Cardiology Progress Note ---
Date of Service May 20, 2023 Assessment & Plan (1) Paroxysmal atrial flutter: (2) ESRD (end stage renal disease): (3) Shortness of breath: Plan 77-year-old female with complex history as outlined above with recurrence of atrial arrhythmias and now atrial flutter with rapid ventricular response, 2-1 conduction Patient is spontaneously converted to sinus rhythm. Discussed with daughter and patient high likelihood of recurrence of arrhythmias, left atrial enlargement on echocardiogram, fluctuation in fluid status and electrolytes during dialysis Will continue IV amiodarone overnight convert to oral amiodarone in a.m. check EKG in a.m. May ultimately reduce metoprolol dosing depending on heart rate Maintain telemetry additional 48 hours to assess QT interval and arrhythmias Daughter agreeable Additional options discussed including AV junction ablation with pacemaker if atrial arrhythmias become persistent with rapid response 05/18/2023 Tolerating amiodarone with mild bradycardia. Will reduce metoprolol succinate to 25 mg twice per day continue amiodarone 200mg 3 times per day EKG in a.m. 05/19/2023 Discussed care in detail with patient and patient's daughter as well as Dr. Tay. No further atrial fibrillation. EKG reveals mild QT prolongation In past has had difficulty with dialysis and hypotension. Will continue current dosing of metoprolol succinate at least the next 24 hours. May ultimately be able to reduce further but would like to see further load with amiodarone complete Will continue amiodarone once per day with a EKG in a.m. 05/20/2023: Plan as outlined with current medication recommendations Amiodarone 200 mg daily Metoprolol succinate 12.5 mg twice per day Follow-up cardiology 2 to 3 weeks time with EKG Admission and Anticipated Discharge Date Admission Date: May 16, 2023 Subjective Patient seen and examined, chart, medications, telemetry reviewed. No significant arrhythmias overnight. Resting bradycardia Underwent abbreviated dialysis today with tolerance. EKG without significant QT prolongation Review of Systems Review of Systems: All systems reviewed & are unremarkable except as noted in Subjective Physical Exam Constitutional: no acute distress Eyes: PERRL, conjunctivae normal, anicteric sclerae ENMT: external ear and nose normal, oropharynx normal Neck: trachea midline, no thyromegaly Respiratory: normal respiratory effort, lungs clear to auscultation Auscultation: + diminished lung sounds Cardiovascular: Rate/Rhythm: regular rate, regular rhythm and + bradycardic Vessels: no JVD Extremities: no edema Gastrointestinal (Abdomen): normal bowel sounds, soft, nontender, no hepatosplenomegaly Results & Data Vital Signs (Past 12 Hours) Vital Signs Temp Pulse Pulse Pulse Resp BP BP 05/20/23 12:24 36.4 C L 59 L 18 127/68 05/20/23 12:10 36.5 C 57 L 120/68 05/20/23 11:30 56 L 113/56 L 05/20/23 11:00 58 L 113/61 05/20/23 10:30 58 L 100/68 05/20/23 10:00 58 L 114/62 05/20/23 09:31 60 110/61 05/20/23 09:26 36.5 C 59 L 05/20/23 09:00 54 L 05/20/23 08:00 05/20/23 07:50 36.3 C L 54 L 20 132/77 05/20/23 02:55 36.5 C 58 L 16 106/65 Pulse Ox O2 Del Method 05/20/23 12:24 96 Room Air 05/20/23 12:10 05/20/23 11:30 05/20/23 11:00 05/20/23 10:30 05/20/23 10:00 05/20/23 09:31 05/20/23 09:26 05/20/23 09:00 05/20/23 08:00 Room Air 05/20/23 07:50 95 CPAP 05/20/23 02:55 99 CPAP Laboratory Results Laboratory Results - last 24 hr 05/18/23 05/20/23 06:18 07:09 WBC 4.82 RBC 4.04 L Hgb 10.1 L Hct 32.8 L MCV 81.2 MCH 25.0 MCHC 30.8 L RDW Std Deviation 45.8 RDW Coeff of Luis 15.9 H Plt Count 163 MPV 10.0 Immature Gran % (Auto) 0.4 Neut % (Auto) 48.9 Lymph % (Auto) 34.4 Pike % (Auto) 9.1 Eos % (Auto) 6.4 Baso % (Auto) 0.8 Neut # (Auto) 2.35 Lymph # (Auto) 1.66 Pike # (Auto) 0.44 Eos # (Auto) 0.31 Baso # (Auto) 0.04 Immature Gran # (Auto) 0.02 PT 19.1 H INR 1.8 H Sodium 139 Potassium 4.6 Chloride 105 Carbon Dioxide 23 Anion Gap 11 BUN 50 H D Creatinine 6.81 H* D Est Cr Clr Drug Dosing 6.3 Est GFR ( Amer) 6.2 Est GFR (Non-Af Amer) 5.3 BUN/Creatinine Ratio 7.[address] Glu mmol/L 5.[address] Glu mg/dL 105 Hemoglobin A1c 5.3 Calcium 9.0 Phosphorus 4.8 Magnesium 2.1 Total Bilirubin 0.4 AST 16 ALT 19 Alkaline Phosphatase 103 Total Protein 6.7 Albumin 3.5 Globulin 3.2 Albumin/Globulin Ratio 1.1
[2023-05-20] MEDS ORDERED: METOPROLOL SUCC 25MG EXT REL TAB PO SCH (21:00)
== END 2023-05-20 15:20 | disposition home or self-care (01) | DRG 308 ==
LOC: ED 13:02 → 2E 16:29 → SUATTDRO 16:29 → 2E 17:40
DX: I48.0 Paroxysmal atrial fibrillation; Z99.2 Dependence on renal dialysis; E78.5 Hyperlipidemia, unspecified; K44.9 Diaphragmatic hernia without obstruction or gangrene; J45.40 Moderate persistent asthma, uncomplicated; R00.1 Bradycardia, unspecified; I12.0 Hypertensive chronic kidney disease with stage 5 chronic kidney disease or end stage renal disease; Z79.01 Long term (current) use of anticoagulants; Z86.16 Personal history of COVID-19; E11.22 Type 2 diabetes mellitus with diabetic chronic kidney disease; N18.6 End stage renal disease; D50.9 Iron deficiency anemia, unspecified; K21.9 Gastro-esophageal reflux disease without esophagitis; E83.39 Other disorders of phosphorus metabolism; I48.92 Unspecified atrial flutter; G47.33 Obstructive sleep apnea (adult) (pediatric); I50.32 Chronic diastolic (congestive) heart failure; I27.20 Pulmonary hypertension, unspecified; R74.8 Abnormal levels of other serum enzymes; K57.50 Diverticulosis of both small and large intestine without perforation or abscess without bleeding; E11.65 Type 2 diabetes mellitus with hyperglycemia; I24.89 Other forms of acute ischemic heart disease; I08.0 Rheumatic disorders of both mitral and aortic valves